=== PATIENT | female | born 1965 | race Two or more races ===

== ENCOUNTER 2020-04-03 13:24 | Emergency (ER) | payer MEDICAID, SELFPAY ==
--- NOTE | 2020-04-03 13:36 | ECG_ITS ---
Test Reason : CHEST PAIN Blood Pressure : / mmHG Vent. Rate : 058 BPM Atrial Rate : 058 BPM P-R Int : 176 ms QRS Dur : 098 ms QT Int : 420 ms P-R-T Axes : 033 006 010 degrees QTc Int : 412 ms Sinus bradycardia Otherwise normal ECG When compared with ECG of 22-OCT-2019 11:26, T wave inversion no longer evident in Lateral leads Referred By: Generic ED Physician Electronically Signed By:EVERTON COLUNGA
--- NOTE | 2020-04-03 15:06 | ED_ITS ---
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 Mode of arrival: ambulatory Limitations: no limitations History of Present Illness HPI narrative: 54 yo female with multiple complaints including 4 days of vague chest pain, mild headache, mild lower abdominal pain, aunt has COVID so she wants a test MD complaint: chest pain Onset (ago): day(s) (4) Timing of current episode: constant Prior episodes: Yes Onset: during rest Pain location: left chest Pain radiation: none Severity: mild Quality: aching Relieving factors: nothing Exacerbating factors: nothing Related Data Allergies Allergy/AdvReac Type Severity Reaction Status Date / Time No Known Allergies Allergy Unverified 03/19/20 18:36 [No Known Allergies*] Pt states no food/medication Allergy Unknown Uncoded 06/07/19 00:00 a Review of Systems Review of Systems: Constitutional : No Weight loss, No Fever, No Chills ENT/Mouth : No sore throat, No Rhinorrhea Eyes: No Eye Pain, No Swelling Cardiovascular : pos Chest Pain, pos SOB, no Dyspnea on Exertion, No Orthopnea, No Edema, No Palpitations Respiratory : No Cough, No Sputum Gastrointestinal : no Nausea, No Vomiting, No Diarrhea, mild intermittent lower abdominal Pain, No Hematochezia, No Melena Genitourinary : No Dysuria, No Urinary Frequency Musculoskeletal : No joint pain, No Myalgias, No Joint Swelling Skin : No Skin Lesions, No rash Neuro : No Weakness, No Numbness, No Dizziness, No Headache Psych : No Anxiety/Panic, No Depression Heme/Lymph: No Bruising, No Lymphadenopathy Endocrine : No Polyuria, No Polydipsia All other systems reviewed and are negative [facility] Past Medical History Medical History (Updated 04/03/20 @ 16:07 by Chelsy Souza DO) Diabetes HTN (hypertension) Hypercholesteremia Surgical History (Updated 04/03/20 @ 15:13 by Chelsy Souza DO) Bariatric surgery status Social History Social History (Updated 04/03/20 @ 15:14 by Chelsy Souza DO) Alcohol intake: never Smoking Status: Never smoker Use of substances other than those prescribed or required for medical reasons: No Advance Directives: No Advance Directives Information Provided: Yes Physical Exam Vital Signs and I&O and Narrative: Vital Signs and I&O: Vital Signs Temp 98.0 F 04/03/20 15:08 Pulse 61 04/03/20 15:08 Resp 18 04/03/20 15:08 BP 124/44 L 04/03/20 15:08 Pulse Ox 99 04/03/20 15:08 Intake & Output 04/02/20 04/03/20 04/03/20 18:59 06:59 18:59 Weight 108.862 kg Body Mass Index 43.9 Appearance: Alert. Oriented X3. No acute distress. Eyes: Pupils equal, round and reactive to light. ENT: Pharynx normal. Neck: Normal inspection. Neck supple. CVS: Normal heart rate and rhythm. Pulses normal. Respiratory: No respiratory distress. Breath sounds normal. Abdomen: Soft and nontender. Skin: Skin warm and dry. Normal skin color. Normal skin turgor. Extremities: No lower extremity edema. No lower extremity edema. Neuro: Oriented X 3. No motor deficit. No sensory deficit. Course Reevaluation(s) Reevaluation #1: signed out to Dr. Gerber pending workup MDM - Chest Pain MDM Narrative Medical decision making narrative: multiple complaints c/o chest pain x 4 days, has no tachycardia not pleuritic no hypoxia and no signs of DVT doubt PE, seems atypical for ACS, also c/o lower abdominal pain but no associated symptoms and has no pain to palpation, benign exam - here also wants a COVID swab, basic labs, CXR, EKG, COVID swab, anticipate DC home if negative Discharge Plan Discharge Clinical Impression: Atypical chest pain Patient Disposition: Home, Self-Care
[2020-04-03 15:08] VITALS: BP 124/44; PULSE 61; RESP 18; TEMP 36.7; O2SAT 99; BMI 43.9
--- NOTE | 2020-04-03 15:10 | XR_ITS ---
EXAMINATION: XR CHEST CLINICAL INFORMATION: Cough. COMPARISON: Chest radiographs dated 12/16/2019. TECHNIQUE: Frontal view of the chest was obtained. FINDINGS: The heart, great vessels, pulmonary vasculature and mediastinum are stable. There is moderate elevation of the right hemidiaphragm redemonstrated. No infiltrate, effusion or pneumothorax is seen. There is no congestive heart failure. No acute osseous abnormality seen. IMPRESSION: No active cardiopulmonary disease. There is stable moderate elevation of the right hemidiaphragm.
[2020-04-03] MEDS: Acetaminophen 325 MG TABLET 650 MG PO (15:58)
[2020-04-03 16:35] VITALS: BP 136/73; PULSE 55; RESP 18; TEMP 36.8; O2SAT 98
[2020-04-03 16:50] LABS: MANUAL DIFF FLAG NO
[2020-04-03 16:53] LABS: Basophils Percent Auto 0.3 % (0-2); Eosinophils Absolute Auto 0.1 X10*3/uL (0.0-0.4); Hematocrit 33.9 % (37-47); Hemoglobin 11.3 g/dl (12.0-16.0); Imm Gran Abs Auto 0.05 X10*3/uL (0.00-0.03); Imm Gran Pct Auto 0.7 % (0.0-0.4); Lymphocytes Absolute Auto 2.2 X10*3/uL (1.2-4.9); Lymphocytes Percent Auto 31.6 % (20-40); Mean Corpuscular HGB Conc 33.3 g/dl (31.0-35.0); Mean Corpuscular Hemoglobin 31.7 pg (27.0-33.0); Mean Platelet Volume 9.3 fL (9.4-12.3); Monocytes Absolute Auto 0.5 X10*3/uL (0.1-1.2); Monocytes Percent Auto 7.5 % (2-11); Neutrophils Absolute Auto 4.1 X10*3/uL (2.0-8.3); Neutrophils Percent Auto 58.9 % (45-73); Platelet Count 310 X10*3/uL (160-400); Red Blood Count 3.57 X10*6/uL (4.20-5.50); Red Cell Distribution Width 12.3 % (11.0-16.0); White Blood Count 6.9 X10*3/uL (4.8-10.8)
[2020-04-03 16:54] LABS: Glucose Urine UA NEG (NEG); Leukocyte Esterase Urine NEG (NEG); Nitrite Urine NEG (NEG); Urine Blood 1+ (NEG); Urine Ketones NEG (NEG); Urine Protein NEG (NEG-TRACE)
[2020-04-03 16:56] LABS: Appearance Urine CLEAR; Color Urine YELLOW
[2020-04-03 17:21] LABS: Alanine Aminotransferase 19 U/L (0-31); Albumin Level 4.2 g/dL (3.5-5.0); Alkaline Phosphatase 91 U/L (39-117); Anion Gap 12 (12-20); Aspartate Amino Transferase 19 U/L (5-31); Bilirubin Direct < 0.2 mg/dL (0.0-0.5); Bilirubin Total 0.2 mg/dL (0.0-1.0); Blood Urea Nitrogen 15 mg/dL (9-16); Calcium 8.9 mg/dL (8.4-10.2); Carbon Dioxide 28 mmol/L (22-29); Chloride 104 mmol/L (96-108); Estimated Glomerular Filt Rate > 60; Glucose Random 161 mg/dL (60-115); Lipase 33 U/L (8-78); Potassium 3.9 mmol/l (3.3-5.1); Sodium 140 mmol/L (135-145); Total Protein 7.1 g/dL (6.5-8.0)
[2020-04-03 17:22] LABS: RBC Urine 0-2 /HPF (0); Squamous Epithelial Cell Urine TRACE /LPF; WBC Urine 0 /HPF (0-4)
[2020-04-03 17:24] LABS: Troponin-I High Sensitivity < 3.5 ng/L (<3.5-17.0)
--- NOTE | 2020-04-03 18:47 | ED_ITS ---
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 Mode of arrival: ambulatory Limitations: no limitations History of Present Illness Pain location: left chest Quality: aching Relieving factors: nothing Exacerbating factors: nothing Related Data Allergies Allergy/AdvReac Type Severity Reaction Status Date / Time No Known Allergies Allergy Unverified 03/19/20 18:36 [No Known Allergies*] Pt states no food/medication Allergy Unknown Uncoded 06/07/19 00:00 a [facility] Past Medical History Medical History (Updated 04/03/20 @ 16:07 by Chelsy Souza DO) Diabetes HTN (hypertension) Hypercholesteremia Surgical History (Updated 04/03/20 @ 15:13 by Chelsy Souza DO) Bariatric surgery status Social History Social History (Updated 04/03/20 @ 15:14 by Chelsy Souza DO) Alcohol intake: never Smoking Status: Never smoker Use of substances other than those prescribed or required for medical reasons: No Advance Directives: No Advance Directives Information Provided: Yes Physical Exam Vital Signs and I&O and Narrative: Vital Signs and I&O: Vital Signs Temp 98.2 F 04/03/20 16:35 Pulse 55 04/03/20 16:35 Resp 18 04/03/20 16:35 BP 136/73 04/03/20 16:35 Pulse Ox 98 04/03/20 16:35 Intake & Output 04/02/20 04/03/20 04/03/20 18:59 06:59 18:59 Weight 108.862 kg Body Mass Index 43.9 Course Reevaluation(s) Reevaluation #1: patient seen evaluated by me. Patient walking to the bathroom without assistance. Patient tolerating p.o.. Laboratory work EKG x-ray negative I discussed the patient covered testing any stye slightly in till results return. Patient states agrees. Doubt at this point patient has acute coronary syndrome. Patient nonseptic discharge MDM - Chest Pain Lab Data Result diagrams: 04/03/20 16:31 04/03/20 16:31 Labs: Lab Results 04/03/20 04/03/20 04/03/20 Range/Units 16:31 16:31 16:31 WBC 6.9 (4.8-10.8) X10*3/uL RBC 3.57 L (4.20-5.50) X10*6/uL Hgb 11.3 L (12.0-16.0) g/dl Hct 33.9 L (37-47) % MCV 95.0 (80-98) fL MCH 31.7 (27.0-33.0) pg MCHC 33.3 (31.0-35.0) g/dl RDW 12.3 (11.0-16.0) % Plt Count 310 (160-400) X10*3/uL MPV 9.3 L (9.4-12.3) fL Immature Gran % (Auto) 0.7 H (0.0-0.4) % Neut % (Auto) 58.9 (45-73) % Lymph % (Auto) 31.6 (20-40) % [place] % (Auto) 7.5 (2-11) % Eos % (Auto) 1.0 (0-4) % Baso % (Auto) 0.3 (0-2) % Neut # (Auto) 4.1 (2.0-8.3) X10*3/uL Lymph # (Auto) 2.2 (1.2-4.9) X10*3/uL [place] # (Auto) 0.5 (0.1-1.2) X10*3/uL Eos # (Auto) 0.1 (0.0-0.4) X10*3/uL Baso # (Auto) 0.0 (0.0-0.2) X10*3/uL Abs Immat Gran (auto) 0.05 H (0.00-0.03) X10*3/uL Absolute Nucleated RBC 0.000 (0.0-0.012) X10*3/uL Nucleated RBC % (auto) 0.0 (0.0-0.2) /100WBC Sodium 140 (135-145) mmol/L Potassium 3.9 (3.3-5.1) mmol/l Chloride 104 (96-108) mmol/L Carbon Dioxide 28 (22-29) mmol/L Anion Gap 12 (12-20) BUN 15 (9-16) mg/dL Creatinine 0.83 (0.5-1.4) mg/dL Estim Creat Clear Calc 90.0 Estimated GFR > 60 Random Glucose 161 H (60-115) mg/dL Calcium 8.9 (8.4-10.2) mg/dL Total Bilirubin 0.2 (0.0-1.0) mg/dL Direct Bilirubin < 0.2 (0.0-0.5) mg/dL AST 19 (5-31) U/L ALT 19 (0-31) U/L Alkaline Phosphatase 91 (39-117) U/L Troponin I High Sens (<3.5-17.0) ng/L Total Protein 7.1 (6.5-8.0) g/dL Albumin 4.2 (3.5-5.0) g/dL Lipase 33 (8-78) U/L Urine Color YELLOW Urine Appearance CLEAR Urine pH 6.0 (5.0-8.0) Ur Specific [place] 1.020 (1.005-1.025) Urine Protein NEG (NEG-TRACE) MG/DL Urine Glucose (UA) NEG (NEG) MG/DL Urine Ketones NEG (NEG) MG/DL Urine Blood 1+ H (NEG) Urine Nitrite NEG (NEG) Ur Leukocyte Esterase NEG (NEG) Urine RBC 0-2 (0) /HPF Urine WBC 0 (0-4) /HPF Ur Squamous Epith Cells TRACE /LPF Urine Bacteria NONE /LPF 04/03/20 Range/Units 16:31 WBC (4.8-10.8) X10*3/uL RBC (4.20-5.50) X10*6/uL Hgb (12.0-16.0) g/dl Hct (37-47) % MCV (80-98) fL MCH (27.0-33.0) pg MCHC (31.0-35.0) g/dl RDW (11.0-16.0) % Plt Count (160-400) X10*3/uL MPV (9.4-12.3) fL Immature Gran % (Auto) (0.0-0.4) % Neut % (Auto) (45-73) % Lymph % (Auto) (20-40) % [place] % (Auto) (2-11) % Eos % (Auto) (0-4) % Baso % (Auto) (0-2) % Neut # (Auto) (2.0-8.3) X10*3/uL Lymph # (Auto) (1.2-4.9) X10*3/uL [place] # (Auto) (0.1-1.2) X10*3/uL Eos # (Auto) (0.0-0.4) X10*3/uL Baso # (Auto) (0.0-0.2) X10*3/uL Abs Immat Gran (auto) (0.00-0.03) X10*3/uL Absolute Nucleated RBC (0.0-0.012) X10*3/uL Nucleated RBC % (auto) (0.0-0.2) /100WBC Sodium (135-145) mmol/L Potassium (3.3-5.1) mmol/l Chloride (96-108) mmol/L Carbon Dioxide (22-29) mmol/L Anion Gap (12-20) BUN (9-16) mg/dL Creatinine (0.5-1.4) mg/dL Estim Creat Clear Calc Estimated GFR Random Glucose (60-115) mg/dL Calcium (8.4-10.2) mg/dL Total Bilirubin (0.0-1.0) mg/dL Direct Bilirubin (0.0-0.5) mg/dL AST (5-31) U/L ALT (0-31) U/L Alkaline Phosphatase (39-117) U/L Troponin I High Sens < 3.5 (<3.5-17.0) ng/L Total Protein (6.5-8.0) g/dL Albumin (3.5-5.0) g/dL Lipase (8-78) U/L Urine Color Urine Appearance Urine pH (5.0-8.0) Ur Specific [place] (1.005-1.025) Urine Protein (NEG-TRACE) MG/DL Urine Glucose (UA) (NEG) MG/DL Urine Ketones (NEG) MG/DL Urine Blood (NEG) Urine Nitrite (NEG) Ur Leukocyte Esterase (NEG) Urine RBC (0) /HPF Urine WBC (0-4) /HPF Ur Squamous Epith Cells /LPF Urine Bacteria /LPF Discharge Plan Discharge Clinical Impression: Atypical chest pain Patient Disposition: Home, Self-Care Additional Instructions: the self isolate as per CDC recommendations into your covid returns. return to the emergency department if her symptoms worsen Referrals: Cynthia Carson DO [Primary Care Provider] - 2 days
== END 2020-04-03 19:02 | disposition home or self-care (01) ==
PROVIDERS: Emergency Medicine; Emergency Provider Emergency Medicine; PCP Family Medicine
DX: R07.9 Chest pain, unspecified (principal); I10 Essential (primary) hypertension; E78.00 Pure hypercholesterolemia, unspecified; Z98.84 Bariatric surgery status
CPT/HCPCS: 36415; 71045; 80048; 80076; 81001; 83690; 84484; 85025; 87635; 93005; 93010; 99283; 99284

== ENCOUNTER 2020-07-12 09:30 | Emergency (ER) | payer MEDICAID, SELFPAY ==
[2020-07-12 09:36] VITALS: BP 183/82; PULSE 80; RESP 16; TEMP 36.7; O2SAT 100; BMI 42.5
[2020-07-12 10:00] VITALS: BP 182/87; PULSE 80; RESP 16; TEMP 36.7; O2SAT 100
--- NOTE | 2020-07-12 10:08 | ED.URI ---
HPI - URI/Sore Throat General Chief Complaint: Upper Respiratory Symptoms Stated Complaint: ear pain and sore throat Time Seen by Provider: 07/12/20 10:05 Source: patient and psychiatric technician assistant Mode of arrival: ambulatory Limitations: no limitations and language barrier History of Present Illness HPI Narrative: 54-year-old female here with left ear pain, nasal congestion, sore throat x3 days. No cough, shortness of breath, chest pain, fevers, chills, body aches. MD elicited complaint: sore throat and nasal congestion Onset (ago): day(s) Consistency: intermittent Severity: mild Description of mucous: clear Able to tolerate fluids by mouth: Yes Exacerbating factors: nothing Relieving factors: nothing Context: sick contacts Associated symptoms: nasal congestion and sore throat Treatments prior to arrival: none Related Data Home Medications Medication Instructions Recorded Confirmed aspirin [Aspirin Low Dose] 81 mg PO DAILY 04/29/20 04/29/20 atorvastatin 40 mg PO BEDTIME 04/29/20 04/29/20 baclofen 10 mg PO TID 04/29/20 04/29/20 cholecalciferol (vitamin D3) 50 mcg PO DAILY 04/29/20 04/29/20 [Vitamin D3] ergocalciferol (vitamin D2) 1,250 mcg PO QWEEK 04/29/20 04/29/20 [Vitamin D2] ferrous sulfate 325 mg PO TID 04/29/20 04/29/20 fluoxetine 20 mg PO DAILY 04/29/20 04/29/20 hydrochlorothiazide 25 mg PO DAILY 04/29/20 04/29/20 lisinopril 30 mg PO DAILY 04/29/20 04/29/20 multivitamin 1 tab PO DAILY 04/29/20 04/29/20 naproxen 500 mg PO BID PRN 04/29/20 04/29/20 omeprazole 20 mg PO DAILY 04/29/20 04/29/20 tramadol 50 mg PO Q6H PRN 04/29/20 04/29/20 Previous Rx's Medication Instructions Recorded amoxicillin 500 mg PO Q8H #21 cap 07/12/20 Allergies Allergy/AdvReac Type Severity Reaction Status Date / Time No Known Allergies Allergy Verified 04/29/20 09:12 [No Known Allergies*] Review of Systems Review of Systems: Yes all other systems are reviewed and are negative Constitutional: Constitutional: Reports no additional constitutional complaints, Denies body ache(s), Denies chills, Denies fever(s), Denies headache(s) and Denies weakness Eyes: Eyes: Reports no additional eye complaints and Denies change in vision ENT: Reports system reviewed and no additional complaints, except as documented, Denies dizziness, Reports otalgia, Denies headache(s), Reports nasal congestion, Denies nasal discharge, Denies neck pain and Reports sore throat Cardiovascular: Cardiovascular: Reports no additional cardiovascular complaints, Denies chest pain, Denies leg edema and Denies dyspnea Respiratory: Respiratory: Reports no additional respiratory complaints, Denies cough and Denies dyspnea Gastrointestinal: Gastrointestinal: Reports no additional gastrointestinal complaints, Denies abdominal pain, Denies diarrhea, Denies nausea and Denies vomiting Genitourinary: Genitourinary: Reports no additional female genitourinary complaints and Denies urinary incontinence Musculoskeletal: Musculoskeletal: Reports no additional musculoskeletal complaints, Denies back pain, Denies arthralgias, Denies joint swelling, Denies neck pain, Denies numbness and Denies tingling Integumentary/Breasts: Skin/Breast: Reports system reviewed and no additional complaints, except as docu and Denies rash Neurologic: Denies Abnormal speech present, Denies dizziness, Denies headache(s), Denies numbness, Denies tingling and Denies weakness PMFSH Past Medical History Attestation statement: The following information was validated with the patient. Source: old records reviewed and nursing notes reviewed Medical History Anemia Arthritis Depression Diabetes GERD (gastroesophageal reflux disease) Hepatitis HTN (hypertension) Hypercholesteremia Lab test negative for COVID-19 virus Surgical History Bariatric surgery status Hx of abdominal surgery Hx of section Hx of cholecystectomy Hx of dilation and curettage Hx of excision of mass Hx of gastric bypass Hx of reduction mammoplasty Hx of tubal ligation Social History Social History Alcohol intake: never Smoking Status: Never smoker Advance Directives: No Advance Directives Information Provided: No Physical Exam Vital Signs: Vital Signs: Last Vital Signs Temp 98.0 F 07/12/20 10:00 Pulse 80 07/12/20 10:00 Resp 16 07/12/20 10:00 BP 182/87 H 07/12/20 10:00 Pulse Ox 100 07/12/20 10:00 Body Mass Index 42.5 Const: General: cooperative, healthy appearing, comfortable and no acute distress Orientation/consciousness: patient oriented x3 Limitations: no limitations HENMT: Head: Yes normal to inspection Ears: hearing grossly normal bilaterally, mastoids normal, no periauricular adenopathy and TM abnormal (Left TM erythematous, bulging) General nose exam: Normal external nose present Face and sinus: Yes normal facial exam Mouth: Normal oral and palatal mucosa present Throat: Yes posterior oropharynx normal Eyes: General: appearance normal, both eyes and all related structures Pupils: Equal, round and reactive pupils present Neck: Neck: Yes normal visual inspection Chest: Chest palpation & inspection: normal inspection of the chest Resp: Effort & Inspection: normal respiratory effort Auscultation: clear to auscultation bilaterally Cardio: Rate: regular rate Rhythm: regular rhythm Peripheral pulses: Peripheral pulses 2+ throughout GI: Inspection: Yes normal to inspection Palpation (GI): Soft to palpation and nontender Auscultation: normal bowel sounds Back/Spine/Pelvis: Thoracic/Lumbar Spine: thoracic and lumbar spine normal to inspection Skin: General skin exam: no rashes or lesions noted Neuro: General: patient oriented x3, no focal motor deficits and normal sensation to monofilament Cranial nerves: Yes Equal, round and reactive pupils present Cognition (Neuro): normal cognition Speech: No Abnormal speech present Gait exam (Neuro): Normal gait present Motor exam (neuro): 5/5 motor strength present throughout Extrem: General: Yes normal to inspection Course Course Course Narrative: Left AOM on exam. Requesting COVID testing. This was sent. Called and informed RSV Positive. Covid negative. All questions answered with the psychiatric technician assistant. Reviewed worrisome signs and symptoms and when to return to the emergency department. Comfortable discharge home. MDM - URI/Sore Throat Medical Records Attestation: I reviewed the patient's medical records. Lab Data Attestation: I reviewed the patient's lab results. Labs: Lab Results 07/12/20 Range/Units 10:37 Coronavirus (PCR) NEGATIVE (Negative) Influenza Type A (PCR) NEGATIVE (Negative) Influenza Type B (PCR) NEGATIVE (Negative) RSV RNA Qual (PCR) POSITIVE A (Negative) Discharge Plan Discharge Clinical Impression: Acute viral syndrome Otitis media Qualifiers: Otitis media type: unspecified Chronicity: acute Qualified Code(s): H66.90 - Otitis media, unspecified, unspecified ear Patient Disposition: Home, Self-Care Instructions: Ear Infection (ED), Viral Syndrome (ED) Additional Instructions: I will call you later today with your COVID results Prescriptions: New amoxicillin 500 mg capsule 500 mg PO Q8H Qty: 21 RF: 0 No Action multivitamin Tablet 1 tab PO DAILY RF: 0 atorvastatin 40 mg Tablet 40 mg PO BEDTIME RF: 0 aspirin [Aspirin Low Dose] 81 mg Tablet,Delayed Release (Dr/Ec) 81 mg PO DAILY RF: 0 tramadol 50 mg Tablet 50 mg PO Q6H PRN (Reason: Pain) RF: 0 baclofen 10 mg Tablet 10 mg PO TID RF: 0 ferrous sulfate 325 mg (65 mg iron) Tablet 325 mg PO TID RF: 0 fluoxetine 20 mg Tablet 20 mg PO DAILY RF: 0 lisinopril 30 mg Tablet 30 mg PO DAILY RF: 0 hydrochlorothiazide 25 mg Tablet 25 mg PO DAILY RF: 0 ergocalciferol (vitamin D2) [Vitamin D2] 1,250 mcg (50,000 unit) Capsule 1,250 mcg PO QWEEK RF: 0 naproxen 500 mg Tablet 500 mg PO BID PRN (Reason: Pain) RF: 0 omeprazole 20 mg Tablet,Delayed Release (Dr/Ec) 20 mg PO DAILY RF: 0 cholecalciferol (vitamin D3) [Vitamin D3] 50 mcg (2,000 unit) Tablet 50 mcg PO DAILY RF: 0 Referrals: Physician,Unknown [Primary Care Provider] - 2 days Interventions: ED Discharge Assessment Last Done: 07/12/20 10:42 Discharge Date/Time: 07/12/20 10:43 Print Language: Burkinan
--- NOTE | 2020-07-12 10:19 | PC.NURSE ---
pt waiting to be seen by provider, reports uri symptoms lungs cta sats 100% roomair
[2020-07-12 12:12] LABS: Influenza A PCR NEGATIVE (Negative); Influenza B PCR NEGATIVE (Negative); Resp Syncy Virus RNA Qual PCR POSITIVE (Negative); SARS COV2 PCR INHOUSE NEGATIVE (Negative)
== END 2020-07-12 10:43 | disposition home or self-care (01) ==
PROVIDERS: Nurse Practitioner Family; Emergency Provider Emergency Medicine
DX: B34.9 Viral infection, unspecified (principal); H66.92 Otitis media, unspecified, left ear; H92.02 Otalgia, left ear; J02.9 Acute pharyngitis, unspecified; Z79.899 Other long term (current) drug therapy; Z20.828 Contact with and (suspected) exposure to other viral communicable diseases
CPT/HCPCS: 0241U; 36415; 99283; 99284

== ENCOUNTER 2020-08-10 08:28 | Emergency (ER) | payer MEDICAID, SELFPAY ==
[2020-08-10 08:50] VITALS: BP 199/102; PULSE 79; RESP 20; TEMP 36.9; O2SAT 98; BMI 42.0
--- NOTE | 2020-08-10 09:07 | ED_ITS ---
HPI - Female Genitourinary General Chief complaint: Urogenital-Female Stated complaint: back pain Time Seen by Provider: 08/10/20 08:53 Source: patient and deaf interpreter Mode of arrival: ambulatory Limitations: no limitations History of Present Illness HPI Narrative: 54 yo female with back pain, HPL, UTI, anemia, HTN here with back pain for a few days hx of same in the past, no b/b incontinence, no saddle anesthesia, no IVDA, no AC therapy - unchanged from prior - also c/o dysuria has frequent UTIs no fevers, n/v MD elicited complaint: dysuria, UTI and back pain Pertinent past history: recurrent UTIs Onset (ago): day(s) (3) Location of symptoms: suprapubic Severity: mild Female Urogenital Radiation: Non-Radiating Quality of pain: dull Consistency: intermittent Vaginal discharge: none Vaginal bleeding: none Urinary symptoms: Dysuria, Urgency and Frequency Exacerbating factors: urination Relieving factors: none Associated symptoms: denies other symptoms Treatment prior to arrival: none Related Data Home Medications Medication Instructions Recorded Confirmed aspirin [Aspirin Low Dose] 81 mg PO DAILY 04/29/20 04/29/20 atorvastatin 40 mg PO BEDTIME 04/29/20 04/29/20 baclofen 10 mg PO TID 04/29/20 04/29/20 cholecalciferol (vitamin D3) 50 mcg PO DAILY 04/29/20 04/29/20 [Vitamin D3] ergocalciferol (vitamin D2) 1,250 mcg PO QWEEK 04/29/20 04/29/20 [Vitamin D2] ferrous sulfate 325 mg PO TID 04/29/20 04/29/20 fluoxetine 20 mg PO DAILY 04/29/20 04/29/20 hydrochlorothiazide 25 mg PO DAILY 04/29/20 04/29/20 lisinopril 30 mg PO DAILY 04/29/20 04/29/20 multivitamin 1 tab PO DAILY 04/29/20 04/29/20 naproxen 500 mg PO BID PRN 04/29/20 04/29/20 omeprazole 20 mg PO DAILY 04/29/20 04/29/20 tramadol 50 mg PO Q6H PRN 04/29/20 04/29/20 Previous Rx's Medication Instructions Recorded amoxicillin 500 mg PO Q8H #21 cap 07/12/20 cyclobenzaprine 10 mg PO TID PRN #14 tab 08/10/20 lidocaine 1 patch TOPICAL DAILY PRN #10 ea 08/10/20 nitrofurantoin monohyd/m-cryst 100 mg PO BID 7 Days #14 cap 08/10/20 [Macrobid] Allergies Allergy/AdvReac Type Severity Reaction Status Date / Time No Known Allergies Allergy Verified 04/29/20 09:12 [No Known Allergies*] Review of Systems Review of Systems: Constitutional : No Weight loss, No Fever, No Chills, ENT/Mouth : No Hearing loss, No Ear Pain, No Nasal Congestion, No Sinus Pain, No Hoarseness, No sore throat, No Rhinorrhea, No Swallowing Difficulty Cardiovascular : No Chest Pain, No SOB Respiratory : No Cough, No Dyspnea Gastrointestinal : No Nausea, No Vomiting, No Diarrhea, No abdominal Pain, No Hematochezia, No Melena Genitourinary : pos Dysuria, pos Urinary Frequency, No Hematuria, No Urinary Incontinence, Musculoskeletal : positive back pain Skin : No Skin Lesions, No rash Neuro : No Weakness, No Numbness, No Paresthesias, no loss of bowel or bladder incontinence, no saddle anesthesia PMFSH Past Medical History Attestation statement: The following information was validated with the patient. Medical History Anemia Arthritis Depression Diabetes GERD (gastroesophageal reflux disease) Hepatitis HTN (hypertension) Hypercholesteremia Lab test negative for COVID-19 virus Surgical History Bariatric surgery status Hx of abdominal surgery Hx of section Hx of cholecystectomy Hx of dilation and curettage Hx of excision of mass Hx of gastric bypass Hx of reduction mammoplasty Hx of tubal ligation Social History Social History Alcohol intake: never Smoking Status: Never smoker Advance Directives: No Advance Directives Information Provided: No Physical Exam Vital Signs: Vital Signs: Last Vital Signs Temp 98.4 F 08/10/20 08:50 Pulse 79 08/10/20 08:50 Resp 20 08/10/20 08:50 BP 199/102 H 08/10/20 08:50 Pulse Ox 98 08/10/20 08:50 Body Mass Index 42.0 Appearance: Alert. Oriented X3. No acute distress. Eyes: Pupils equal, round and reactive to light. ENT: Pharynx normal. Neck: Normal inspection. Neck supple. CVS: Normal heart rate and rhythm. Pulses normal. Respiratory: No respiratory distress. Breath sounds normal. Abdomen: Soft and nontender. Back: no CVA ttp c/o pain along lumbar paraspinals Skin: Skin warm and dry. Normal skin color. Normal skin turgor. Extremities: No lower extremity edema. No calf ttp Neuro: Oriented X 3. No motor deficit. No sensory deficit. MDM - Female Genitourinary MDM Narrative Medical decision making narrative: 54 yo female with UTI, chronic back pain here with c/o back pain which is chronic no CVA ttp (no b/b incontinence, no saddle anesthesia), no vomiting, no fevers, has dysuria - review of cultures S to macrobid - wants COVID test. Lab Data Labs: Lab Results 08/10/20 08/10/20 Range/Units 09:01 09:12 Urine Color YELLOW Urine Appearance HAZY Urine pH 6.0 (5.0-8.0) Ur Specific [place] >= 1.030 H (1.005-1.025) Urine Protein NEG (NEG-TRACE) MG/DL Urine Glucose (UA) NEG (NEG) MG/DL Urine Ketones NEG (NEG) MG/DL Urine Blood 1+ H (NEG) Urine Nitrite POS H (NEG) Ur Leukocyte Esterase NEG (NEG) Urine RBC 1-4 (0) /HPF Urine WBC 5-9 H (0-4) /HPF Ur Squamous Epith Cells 1+ /LPF Urine Bacteria 3+ /LPF COVID-19 (FRANC) Negative (Negative) COVID-19 Clin Com See Note Discharge Plan Discharge Patient Disposition: Home, Self-Care Additional Instructions: return to ED for any worsening symptoms or concerns NEGATIVE FOR COVID Prescriptions: New cyclobenzaprine 10 mg tablet 10 mg PO TID PRN (Reason: muscle spasm) Qty: 14 RF: 0 lidocaine 4 % adhesive patch,medicated 1 patch topical DAILY PRN (Reason: pain) Qty: 10 RF: 0 nitrofurantoin monohyd/m-cryst [Macrobid] 100 mg capsule 100 mg PO BID 7 Days Qty: 14 RF: 0 No Action multivitamin Tablet 1 tab PO DAILY RF: 0 atorvastatin 40 mg Tablet 40 mg PO BEDTIME RF: 0 aspirin [Aspirin Low Dose] 81 mg Tablet,Delayed Release (Dr/Ec) 81 mg PO DAILY RF: 0 tramadol 50 mg Tablet 50 mg PO Q6H PRN (Reason: Pain) RF: 0 baclofen 10 mg Tablet 10 mg PO TID RF: 0 ferrous sulfate 325 mg (65 mg iron) Tablet 325 mg PO TID RF: 0 fluoxetine 20 mg Tablet 20 mg PO DAILY RF: 0 lisinopril 30 mg Tablet 30 mg PO DAILY RF: 0 hydrochlorothiazide 25 mg Tablet 25 mg PO DAILY RF: 0 ergocalciferol (vitamin D2) [Vitamin D2] 1,250 mcg (50,000 unit) Capsule 1,250 mcg PO QWEEK RF: 0 naproxen 500 mg Tablet 500 mg PO BID PRN (Reason: Pain) RF: 0 omeprazole 20 mg Tablet,Delayed Release (Dr/Ec) 20 mg PO DAILY RF: 0 cholecalciferol (vitamin D3) [Vitamin D3] 50 mcg (2,000 unit) Tablet 50 mcg PO DAILY RF: 0 amoxicillin 500 mg capsule 500 mg PO Q8H Qty: 21 RF: 0 Referrals: Cynthia Carson DO [Primary Care Provider] - 2 days (if not better) Print Language: Luxembourger
[2020-08-10 09:22] LABS: Glucose Urine UA NEG (NEG); Leukocyte Esterase Urine NEG (NEG); Nitrite Urine POS (NEG); Specific Gravity - Urine >= 1.030 (1.005-1.025); UACC Culture Trigger YES; Urine Blood 1+ (NEG); Urine Ketones NEG (NEG); Urine Protein NEG (NEG-TRACE)
[2020-08-10] MEDS: Cyclobenzaprine HCl 10 MG TABLET PO (09:36)
[2020-08-10 09:40] LABS: Appearance Urine HAZY; Color Urine YELLOW
[2020-08-10 09:42] LABS: COVID-19 Test Negative (Negative); IDNOW Serial# 9DD0AD1C
[2020-08-10 09:49] LABS: Bacteria Urine 3+ /LPF; Squamous Epithelial Cell Urine 1+ /LPF; UACC CULT YES
[2020-08-10] MEDS: Nitrofurantoin Monohyd/M-Cryst 100 MG CAPSULE PO (10:05)
== END 2020-08-10 10:10 | disposition home or self-care (01) ==
PROVIDERS: Emergency Provider Emergency Medicine; PCP Family Medicine
DX: N39.0 Urinary tract infection, site not specified (principal); Z20.822 Contact with and (suspected) exposure to COVID-19; E11.9 Type 2 diabetes mellitus without complications; I10 Essential (primary) hypertension; Z87.440 Personal history of urinary (tract) infections
CPT/HCPCS: 36415; 81001; 87086; 87635; 99283

== ENCOUNTER 2020-08-13 14:03 | Emergency (ER) | payer MEDICAID, SELFPAY ==
--- NOTE | 2020-08-13 | ECG_ITS ---
Test Reason : EPIGASTRIC PAIN Blood Pressure : / mmHG Vent. Rate : 071 BPM Atrial Rate : 071 BPM P-R Int : 158 ms QRS Dur : 092 ms QT Int : 368 ms P-R-T Axes : 055 003 027 degrees QTc Int : 399 ms Normal sinus rhythm Minimal voltage criteria for LVH, may be normal variant Borderline ECG When compared with ECG of 03-APR-2020 14:39, No significant change was found Referred By: Generic ED Physician Electronically Signed By:ADIS ERICKSON MD
--- NOTE | ~2020-08-13 | CT_ITS ---
EXAMINATION: CT ABDOMEN AND PELVIS WITH CONTRAST CLINICAL INFORMATION: Epigastric and right upper quadrant pain with history of gastric bypass. COMPARISON: CT abdomen and pelvis 04/02/[address] scans dating back to 10/09/2014. No retroperitoneal lymphadenopathy is seen. TECHNIQUE: Multidetector volumetric images were obtained from the superior aspect of the liver through the pubic symphysis following administration 85 mL of Omnipaque 350 intravenous contrast. Sagittal and coronal reformatted images were obtained on the technologist's workstation. Oral contrast: No This CT examination was performed using dose optimization techniques as appropriate, variously including the following: *Automated exposure control *Adjustment of mA and/or kV according to patient size (this includes techniques or standardized protocols for targeted exams where dose is matched to indication/reason for exam; i.e. extremities or head) *Use of iterative reconstruction technique DLP: 1005 mGy-cm FINDINGS: LUNG BASES: The visualized lung bases are unremarkable. LIVER, GALLBLADDER, AND BILIARY TREE: The liver is normal in size, shape, and attenuation. Again seen are some tiny hypodensities in the liver, presumably cysts. No suspicious focal hepatic lesion or biliary ductal dilatation is present. There is some minimal central biliary prominence status post cholecystectomy. PANCREAS: Unremarkable. SPLEEN: Unremarkable. ADRENAL GLANDS: Unremarkable. KIDNEYS AND URETERS: The kidneys are normal in size, shape, and attenuation with the exception of a cortical scar in the right lower pole. There is some associated calcification with the scar. No hydronephrosis, hydroureter, or calculi seen. No perinephric stranding. BLADDER: Unremarkable. GASTROINTESTINAL TRACT: There has been prior bariatric gastric surgery. The small and large bowel are unremarkable. The appendix is unremarkable. ABDOMINAL WALL: No significant hernia is appreciated. LYMPH NODES/RETROPERITONEUM: Again seen is a left para-aortic mass currently measuring 4.1 x 3.6 x 4.4 cm. The mass is slightly larger than previously noted when it measured 4.0 x 3.7 x 3.7 cm. On the current study the mass still contains fat density but less so than on the prior study. This mass has been present on studies dating back to at least 2014. In 2015 the mass measured 4.8 x 3.8 x 5.4 cm. The mass has also varied in attenuation whereas initially it was fairly homogeneous with predominantly water density with fat density developing on future exams. VASCULAR: Unremarkable. PELVIC VISCERA: An enlarged bulky lobular uterus is present consistent with multiple fibroids, some of which demonstrate calcifications. Appearances are unchanged. An abnormal adnexal mass or free intraperitoneal fluid is not seen. OSSEOUS STRUCTURES: Degenerative changes again seen in the spine most marked at L5-S1. CT/CT abdomen pelvis w con IMPRESSION: A definitive etiology for the patient's acute right upper quadrant/epigastric pain has not been found. Again seen is the round retroperitoneal mass slightly larger than previously noted on the most immediate prior study, with more high density content and less fat content, possibly secondary to bleeding. This mass has been present since at least 2014 slightly larger in size. Other incidental findings as described above.
--- NOTE | ~2020-08-13 | XR_ITS ---
EXAMINATION: XR CHEST CLINICAL INFORMATION: Chest pain. COMPARISON: None TECHNIQUE: Frontal view of the chest was obtained. FINDINGS: The lungs are hypoexpanded but clear. The heart size and pulmonary vascularity is normal. There is moderate spondylosis dorsal spine. No lytic process seen. XR/XR chest 1V IMPRESSION: Hypoexpanded lungs. No acute process seen.
[2020-08-13 14:25] VITALS: BP 197/90; PULSE 80; RESP 16; TEMP 36.7; O2SAT 98; BMI 43.0
[2020-08-13 15:49] LABS: MANUAL DIFF FLAG NO
[2020-08-13 15:51] LABS: Basophils Percent Auto 0.3 % (0-2); Eosinophils Absolute Auto 0.1 X10*3/uL (0.0-0.4); Eosinophils Percent Auto 0.9 % (0-4); Hematocrit 37.8 % (37-47); Hemoglobin 12.5 g/dl (12.0-16.0); Imm Gran Abs Auto 0.02 X10*3/uL (0.00-0.03); Imm Gran Pct Auto 0.3 % (0.0-0.4); Lymphocytes Absolute Auto 2.5 X10*3/uL (1.2-4.9); Lymphocytes Percent Auto 33.4 % (20-40); Mean Corpuscular HGB Conc 33.1 g/dl (31.0-35.0); Mean Corpuscular Hemoglobin 31.2 pg (27.0-33.0); Mean Corpuscular Volume 94.3 fL (80-98); Monocytes Absolute Auto 0.5 X10*3/uL (0.1-1.2); Monocytes Percent Auto 7.1 % (2-11); Neutrophils Absolute Auto 4.4 X10*3/uL (2.0-8.3); Platelet Count 328 X10*3/uL (160-400); Red Blood Count 4.01 X10*6/uL (4.20-5.50); Red Cell Distribution Width 12.4 % (11.0-16.0); White Blood Count 7.5 X10*3/uL (4.8-10.8)
--- NOTE | 2020-08-13 16:15 | ED.CHESTPAIN ---
HPI - Chest Pain General Chief Complaint: Chest Pain Stated Complaint: chest pain Time Seen by Provider: 08/13/20 16:02 Source: patient Mode of arrival: ambulatory Limitations: no limitations History of Present Illness HPI narrative: Patient comes to emergency room complaining of epigastric and right upper quadrant pain. Patient states it started approximately 1 week ago, pain is intermittent, but in the last few days it has been constant. Today, patient ate soup, made the pain much worse and decided to come to the emergency room. However, patient states that the pain is much worse any time that she moves her upper body or lifts her arms up. Patient denies vomiting or diarrhea. Patient denies chest pain, no shortness of breath. Patient states she had a gastric bypass surgery 4 years ago in [facility] MD complaint: other (Epigastric/right upper quadrant pain) Related Data Home Medications Medication Instructions Recorded Confirmed aspirin [Aspirin Low Dose] 81 mg PO DAILY 04/29/20 04/29/20 atorvastatin 40 mg PO BEDTIME 04/29/20 04/29/20 baclofen 10 mg PO TID 04/29/20 04/29/20 cholecalciferol (vitamin D3) 50 mcg PO DAILY 04/29/20 04/29/20 [Vitamin D3] ergocalciferol (vitamin D2) 1,250 mcg PO QWEEK 04/29/20 04/29/20 [Vitamin D2] ferrous sulfate 325 mg PO TID 04/29/20 04/29/20 fluoxetine 20 mg PO DAILY 04/29/20 04/29/20 hydrochlorothiazide 25 mg PO DAILY 04/29/20 04/29/20 lisinopril 30 mg PO DAILY 04/29/20 04/29/20 multivitamin 1 tab PO DAILY 04/29/20 04/29/20 naproxen 500 mg PO BID PRN 04/29/20 04/29/20 omeprazole 20 mg PO DAILY 04/29/20 04/29/20 tramadol 50 mg PO Q6H PRN 04/29/20 04/29/20 Previous Rx's Medication Instructions Recorded amoxicillin 500 mg PO Q8H #21 cap 07/12/20 cyclobenzaprine 10 mg PO TID PRN #14 tab 08/10/20 lidocaine 1 patch TOPICAL DAILY PRN #10 ea 08/10/20 nitrofurantoin monohyd/m-cryst 100 mg PO BID 7 Days #14 cap 08/10/20 [Macrobid] Allergies Allergy/AdvReac Type Severity Reaction Status Date / Time No Known Allergies Allergy Verified 04/29/20 09:12 [No Known Allergies*] Review of Systems Review of Systems: Constitutional : No Weight loss, No Fever, No Chills, No Night Sweats, No Fatigue, No Malaise ENT/Mouth : No Hearing loss, No Ear Pain, No Nasal Congestion, No Sinus Pain, No Hoarseness, No sore throat, No Rhinorrhea, No Swallowing Difficulty Eyes: No Eye Pain, No Swelling, No Redness, No Foreign Body, No Discharge, No Vision Changes Cardiovascular : No Chest Pain, No SOB, No Dyspnea on Exertion, No Orthopnea, No Edema, No Palpitations Respiratory : No Cough, No Sputum, No Wheezing, No Smoke Exposure, No Dyspnea Gastrointestinal : No Nausea, No Vomiting, No Diarrhea, No Constipation, complaining of right upper quadrant pain and epigastric pain radiating towards the back, No Hematochezia, No Melena Genitourinary : no irregular bleeding, No Dysuria, No Urinary Frequency, No Hematuria, No Urinary Incontinence, No Urgency, No Flank Pain, No Urinary Flow Changes, No Hesitancy Musculoskeletal : No joint pain, No Myalgias, No Joint Swelling Skin : No Skin Lesions, No rash Neuro : No Weakness, No Numbness, No Paresthesias, No Loss of Consciousness, No Dizziness, No Headache Psych : No Anxiety/Panic, No Depression, No SI/HI/AH/VH, No Social Issues, Heme/Lymph: No Bruising, No Bleeding,No Lymphadenopathy Endocrine : No Polyuria, No Polydipsia, No Temperature Intolerance [facility] Past Medical History Medical History Anemia Arthritis Depression Diabetes GERD (gastroesophageal reflux disease) Hepatitis HTN (hypertension) Hypercholesteremia Lab test negative for COVID-19 virus Surgical History Bariatric surgery status Hx of abdominal surgery Hx of section Hx of cholecystectomy Hx of dilation and curettage Hx of excision of mass Hx of gastric bypass Hx of reduction mammoplasty Hx of tubal ligation Social History Social History Alcohol intake: never Smoking Status: Never smoker Use of substances other than those prescribed or required for medical reasons: No Advance Directives: No Advance Directives Information Provided: Yes Physical Exam Vital Signs: Vital Signs: Last Vital Signs Temp 98.3 F 08/13/20 16:26 Pulse 67 08/13/20 18:37 Resp 18 08/13/20 18:37 BP 169/74 H 08/13/20 18:37 Pulse Ox 98 08/13/20 18:37 Body Mass Index 43.0 Appearance: Alert. Oriented X3. No acute distress. Eyes: Pupils equal, round and reactive to light. ENT: Pharynx normal. Neck: Normal inspection. Neck supple. No lymph nodes noted. No crepitus CVS: Normal heart rate and rhythm. Pulses normal. Normal S1 and S2 Respiratory: No respiratory distress. Breath sounds normal. No Wheezing. No rales Abdomen: Soft , tender to palpation in the epigastric and right upper quadrant, No rigidity. No distention. good BS x4 Skin: Skin warm and dry. Normal skin color. Normal skin turgor. Extremities: No lower extremity edema. No lower extremity edema. No Lacerations. No Rash Neuro: Oriented X 3. No motor deficit. No sensory deficit. Moving all extermities. No slurred speech. Course Course Course Narrative: I discussed the labs and imaging with the patient, no acute pathology, the mass noted on CT scan that grew, is likely a fatty deposit. Patient states that she feels better, I discussed with her that given that the pain is worse with movement, it is likely musculoskeletal in nature. MDM - Chest Pain Lab Data Result diagrams: 08/13/20 15:41 08/13/20 15:41 Labs: Lab Results 08/13/20 08/13/20 08/13/20 Range/Units 15:41 15:41 15:41 WBC 7.5 (4.8-10.8) X10*3/uL RBC 4.01 L (4.20-5.50) X10*6/uL Hgb 12.5 (12.0-16.0) g/dl Hct 37.8 (37-47) % MCV 94.3 (80-98) fL MCH 31.2 (27.0-33.0) pg MCHC 33.1 (31.0-35.0) g/dl RDW 12.4 (11.0-16.0) % Plt Count 328 (160-400) X10*3/uL MPV 9.0 L (9.4-12.3) fL Immature Gran % (Auto) 0.3 (0.0-0.4) % Neut % (Auto) 58.0 (45-73) % Lymph % (Auto) 33.4 (20-40) % [place] % (Auto) 7.1 (2-11) % Eos % (Auto) 0.9 (0-4) % Baso % (Auto) 0.3 (0-2) % Lymph # (Auto) 2.5 (1.2-4.9) X10*3/uL [place] # (Auto) 0.5 (0.1-1.2) X10*3/uL Eos # (Auto) 0.1 (0.0-0.4) X10*3/uL Baso # (Auto) 0.0 (0.0-0.2) X10*3/uL Abs Immat Gran (auto) 0.02 (0.00-0.03) X10*3/uL Absolute Neuts (auto) 4.4 (2.0-8.3) X10*3/uL Absolute Nucleated RBC 0.000 (0.0-0.012) X10*3/uL Nucleated RBC % (auto) 0.0 (0.0-0.2) /100WBC Hold Blue Top SEE NOTE Sodium 141 (135-145) mmol/L Potassium 4.3 (3.3-5.1) mmol/L Chloride 105 (96-108) mmol/L Carbon Dioxide 27 (22-29) mmol/L Anion Gap 13 (12-20) BUN 16 (9-16) mg/dL Creatinine 0.80 (0.5-1.4) mg/dL Estim Creat Clear Calc 92.2 Estimated GFR > 60 Random Glucose 119 H (60-115) mg/dL Calcium 9.1 (8.4-10.2) mg/dL Total Bilirubin 0.4 (0.0-1.0) mg/dL Direct Bilirubin 0.2 (0.0-0.5) mg/dL AST 20 (5-31) U/L ALT 16 (0-31) U/L Alkaline Phosphatase 98 (39-117) U/L Troponin I High Sens (<3.5-17.0) ng/L Total Protein 7.6 (6.5-8.0) g/dL Albumin 4.3 (3.5-5.0) g/dL Lipase 33 (8-78) U/L 08/13/20 Range/Units 15:41 WBC (4.8-10.8) X10*3/uL RBC (4.20-5.50) X10*6/uL Hgb (12.0-16.0) g/dl Hct (37-47) % MCV (80-98) fL MCH (27.0-33.0) pg MCHC (31.0-35.0) g/dl RDW (11.0-16.0) % Plt Count (160-400) X10*3/uL MPV (9.4-12.3) fL Immature Gran % (Auto) (0.0-0.4) % Neut % (Auto) (45-73) % Lymph % (Auto) (20-40) % [place] % (Auto) (2-11) % Eos % (Auto) (0-4) % Baso % (Auto) (0-2) % Lymph # (Auto) (1.2-4.9) X10*3/uL [place] # (Auto) (0.1-1.2) X10*3/uL Eos # (Auto) (0.0-0.4) X10*3/uL Baso # (Auto) (0.0-0.2) X10*3/uL Abs Immat Gran (auto) (0.00-0.03) X10*3/uL Absolute Neuts (auto) (2.0-8.3) X10*3/uL Absolute Nucleated RBC (0.0-0.012) X10*3/uL Nucleated RBC % (auto) (0.0-0.2) /100WBC Hold Blue Top Sodium (135-145) mmol/L Potassium (3.3-5.1) mmol/L Chloride (96-108) mmol/L Carbon Dioxide (22-29) mmol/L Anion Gap (12-20) BUN (9-16) mg/dL Creatinine (0.5-1.4) mg/dL Estim Creat Clear Calc Estimated GFR Random Glucose (60-115) mg/dL Calcium (8.4-10.2) mg/dL Total Bilirubin (0.0-1.0) mg/dL Direct Bilirubin (0.0-0.5) mg/dL AST (5-31) U/L ALT (0-31) U/L Alkaline Phosphatase (39-117) U/L Troponin I High Sens < 3.5 (<3.5-17.0) ng/L Total Protein (6.5-8.0) g/dL Albumin (3.5-5.0) g/dL Lipase (8-78) U/L Imaging Data Chest x-ray: Radiologist's impression: FINDINGS: The lungs are hypoexpanded but clear. The heart size and pulmonary vascularity is normal. There is moderate spondylosis dorsal spine. No lytic process seen. XR/XR chest 1V IMPRESSION: Hypoexpanded lungs. No acute process seen. ECG Data ECG #1: Attestation: I personally reviewed and interpreted this ECG as follows: (Heart rate 71, sinus rhythm, no ST segment depressions or elevations, no T-wave inversions) Discharge Plan Discharge Clinical Impression: Abdominal pain Qualifiers: Abdominal location: epigastric Qualified Code(s): R10.13 - Epigastric pain Patient Disposition: Home, Self-Care Instructions: Abdominal Pain (ED) Additional Instructions: Please follow-up with your primary care physician tomorrow. If you have any worsening or new symptoms, please return to the emergency room or call 911 Prescriptions: No Action multivitamin Tablet 1 tab PO DAILY RF: 0 atorvastatin 40 mg Tablet 40 mg PO BEDTIME RF: 0 aspirin [Aspirin Low Dose] 81 mg Tablet,Delayed Release (Dr/Ec) 81 mg PO DAILY RF: 0 tramadol 50 mg Tablet 50 mg PO Q6H PRN (Reason: Pain) RF: 0 baclofen 10 mg Tablet 10 mg PO TID RF: 0 ferrous sulfate 325 mg (65 mg iron) Tablet 325 mg PO TID RF: 0 fluoxetine 20 mg Tablet 20 mg PO DAILY RF: 0 lisinopril 30 mg Tablet 30 mg PO DAILY RF: 0 hydrochlorothiazide 25 mg Tablet 25 mg PO DAILY RF: 0 ergocalciferol (vitamin D2) [Vitamin D2] 1,250 mcg (50,000 unit) Capsule 1,250 mcg PO QWEEK RF: 0 naproxen 500 mg Tablet 500 mg PO BID PRN (Reason: Pain) RF: 0 omeprazole 20 mg Tablet,Delayed Release (Dr/Ec) 20 mg PO DAILY RF: 0 cholecalciferol (vitamin D3) [Vitamin D3] 50 mcg (2,000 unit) Tablet 50 mcg PO DAILY RF: 0 amoxicillin 500 mg capsule 500 mg PO Q8H Qty: 21 RF: 0 cyclobenzaprine 10 mg tablet 10 mg PO TID PRN (Reason: muscle spasm) Qty: 14 RF: 0 lidocaine 4 % adhesive patch,medicated 1 patch topical DAILY PRN (Reason: pain) Qty: 10 RF: 0 nitrofurantoin monohyd/m-cryst [Macrobid] 100 mg capsule 100 mg PO BID 7 Days Qty: 14 RF: 0
[2020-08-13 16:17] LABS: Anion Gap 13 (12-20); Blood Urea Nitrogen 16 mg/dL (9-16); Calcium 9.1 mg/dL (8.4-10.2); Carbon Dioxide 27 mmol/L (22-29); Chloride 105 mmol/L (96-108); Creatinine Clr Calc Pharmacy 92.2; Estimated Glomerular Filt Rate > 60; Glucose Random 119 mg/dL (60-115); Potassium 4.3 mmol/L (3.3-5.1); Sodium 141 mmol/L (135-145)
[2020-08-13 16:22] LABS: Troponin-I High Sensitivity < 3.5 ng/L (<3.5-17.0)
[2020-08-13 16:26] VITALS: BP 171/56; PULSE 63; RESP 16; TEMP 36.8; O2SAT 100
--- NOTE | 2020-08-13 16:31 | PC.NURSE ---
PT UPRIGHT IN BED, C/O UPPER ABD PAIN X1 WEEK, STS NOTABLY WORSE TODAY, PAIN WORSE AFTER EATING, DENIES ANY ASSOCIATED SX. IV ESTABLIHSED, PT IN NAD, AWAITING CT SCAN, AWARE/AGREEABLE TO PLAN OF CARE.
[2020-08-13 16:39] LABS: Alanine Aminotransferase 16 U/L (0-31); Albumin Level 4.3 g/dL (3.5-5.0); Alkaline Phosphatase 98 U/L (39-117); Aspartate Amino Transferase 20 U/L (5-31); Bilirubin Direct 0.2 mg/dL (0.0-0.5); Bilirubin Total 0.4 mg/dL (0.0-1.0); Lipase 33 U/L (8-78); Total Protein 7.6 g/dL (6.5-8.0)
[2020-08-13] MEDS: iohexoL 350 MG/ML 100 ML INFUS..BTL IV (16:50)
--- NOTE | 2020-08-13 17:17 | PC.NURSE ---
PT SITTING IN BED WITH NAD, PENDING CT SCAN RESULTS.
[2020-08-13 18:37] VITALS: BP 169/74; PULSE 67; RESP 18; O2SAT 98
== END 2020-08-13 19:20 | disposition home or self-care (01) ==
PROVIDERS: Emergency Provider Emergency Medicine; PCP Family Medicine
DX: R07.89 Other chest pain (principal); R10.11 Right upper quadrant pain; M79.602 Pain in left arm; M79.601 Pain in right arm; Z79.899 Other long term (current) drug therapy
CPT/HCPCS: 36415; 71045; 74177; 80048; 80076; 83690; 84484; 85025; 93005; 99284; Q9967

== ENCOUNTER 2020-08-17 07:40 | Outpatient (REF) | payer MEDICAID, SELFPAY ==
--- NOTE | ~2020-08-17 | US_ITS ---
EXAMINATION: US ABDOMEN COMPLETE CLINICAL INFORMATION: Upper abdominal pain. COMPARISON: CT abdomen and pelvis 08/13/2020. Renal ultrasound 08/08/2018 and 07/04/2017. MRI abdomen and pelvis 10/21/2014. TECHNIQUE: Real-time imaging of the abdominal viscera. FINDINGS: PANCREAS: Normal. ABDOMINAL AORTA: The abdominal aorta is normal in caliber. There is a hypoechoic lesion adjacent to the aorta that measures 4 x 4 x 3.5 cm. This is similar to previous exams going back to 2014. INFERIOR VENA CAVA: Visualized portions are normal. LIVER: The liver is normal in size. The liver contour is normal. Liver echogenicity is normal. No focal hepatic lesion. There is no intrahepatic biliary duct dilatation seen. GALLBLADDER: Surgically absent. COMMON BILE DUCT: Normal in caliber measuring 0.3 cm in diameter. RIGHT KIDNEY: There is cortical thinning or scarring in the lower pole. There is a echogenic focus suggestive of cortical calcification or stone measuring 5 x 5 x 7 mm. No hydronephrosis. The kidney measures 11.2 cm in maximum dimension. LEFT KIDNEY: Normal. No hydronephrosis. No renal calculi or focal parenchymal lesions. The kidney measures 11.9 cm in maximum dimension. SPLEEN: Normal. The spleen measures 9.7 cm in maximum dimension. FREE FLUID: None. US/US abdomen complete IMPRESSION: 4 x 4 x 3.5 cm hypoechoic lesion adjacent to the aorta. This is stable going back to old exams from 2014 suggestive of a benign lesion. Cortical thinning or scarring of the lower pole of the right kidney and right lower pole calcification questionable for stone versus cortical calcification.
== END 2020-08-17 07:41 | disposition home or self-care (01) ==
LOC: HO.US 07:40
PROVIDERS: PCP Family Medicine; Visit Provider Family Medicine
DX: R10.10 Upper abdominal pain, unspecified (principal)
CPT/HCPCS: 76700

== ENCOUNTER 2020-09-06 14:46 | Emergency (ER) | payer MEDICAID, SELFPAY ==
--- NOTE | 2020-09-06 | ECG_ITS ---
Test Reason : JOEL PAIN Blood Pressure : / mmHG Vent. Rate : 077 BPM Atrial Rate : 077 BPM P-R Int : 158 ms QRS Dur : 094 ms QT Int : 392 ms P-R-T Axes : 034 001 020 degrees QTc Int : 443 ms Normal sinus rhythm Moderate voltage criteria for LVH, may be normal variant Borderline ECG When compared with ECG of 13-AUG-2020 14:22, No significant change was found Referred By: Generic ED Physician Electronically Signed By:Hugh Nguyen
--- NOTE | ~2020-09-06 | XR_ITS ---
EXAMINATION: XR CHEST CLINICAL INFORMATION: Chest pain. COMPARISON: Chest 08/13/2020 TECHNIQUE: Frontal view of the chest was obtained. FINDINGS: The lungs are well-expanded and clear of acute process. The heart size and vascularity is normal. Moderate spondylosis seen in dorsal spine. No lytic process. XR/XR chest 1V IMPRESSION: Unremarkable chest exam. Mild spondylosis dorsal spine.
[2020-09-06 14:51] VITALS: BP 172/98; PULSE 82; RESP 16; TEMP 36.5; O2SAT 97; BMI 43.9
--- NOTE | 2020-09-06 16:36 | ED_ITS ---
HPI - Chest Pain General Chief Complaint: Chest Pain Stated Complaint: CHEST PAIN Time Seen by Provider: 09/06/20 16:36 Source: patient Mode of arrival: ambulatory Limitations: language barrier History of Present Illness HPI narrative: Patient has history of hypertension chronic recurrent chest pain anxiety and depression had workup done many times in the past for the chest pain was negative comes here for the chest pains started since yesterday afternoon patient complains of pain in the left chest , sharp lasting for few seconds off and on slept well in the night without any discomfort no nausea no vomiting no diaphoresis no shortness of breath no cough denies any significant anxiety or stress pain is similar to that in the past. Patient denies any chest pain while in the ER Related Data Home Medications Medication Instructions Recorded Confirmed aspirin [Aspirin Low Dose] 81 mg PO DAILY 04/29/20 04/29/20 atorvastatin 40 mg PO BEDTIME 04/29/20 04/29/20 baclofen 10 mg PO TID 04/29/20 04/29/20 cholecalciferol (vitamin D3) 50 mcg PO DAILY 04/29/20 04/29/20 [Vitamin D3] ergocalciferol (vitamin D2) 1,250 mcg PO QWEEK 04/29/20 04/29/20 [Vitamin D2] ferrous sulfate 325 mg PO TID 04/29/20 04/29/20 fluoxetine 20 mg PO DAILY 04/29/20 04/29/20 hydrochlorothiazide 25 mg PO DAILY 04/29/20 04/29/20 lisinopril 30 mg PO DAILY 04/29/20 04/29/20 multivitamin 1 tab PO DAILY 04/29/20 04/29/20 naproxen 500 mg PO BID PRN 04/29/20 04/29/20 omeprazole 20 mg PO DAILY 04/29/20 04/29/20 tramadol 50 mg PO Q6H PRN 04/29/20 04/29/20 Previous Rx's Medication Instructions Recorded amoxicillin 500 mg PO Q8H #21 cap 07/12/20 cyclobenzaprine 10 mg PO TID PRN #14 tab 08/10/20 lidocaine 1 patch TOPICAL DAILY PRN #10 ea 08/10/20 nitrofurantoin monohyd/m-cryst 100 mg PO BID 7 Days #14 cap 08/10/20 [Macrobid] Allergies Allergy/AdvReac Type Severity Reaction Status Date / Time No Known Allergies Allergy Verified 04/29/20 09:12 [No Known Allergies*] Review of Systems Review of Systems: Constitutional : No Weight loss, No Fever, No Chills ENT/Mouth : No sore throat, No Rhinorrhea Eyes: No Eye Pain, No Swelling Cardiovascular : +Chest Pain, no palpitations Respiratory : No Cough, No Sputum, no shortness of breath Gastrointestinal : no Nausea, No Vomiting, No Diarrhea, No abdominal Pain, no black stools Genitourinary : No Dysuria, No Urinary Frequency Musculoskeletal : No joint pain, No Myalgias, No Joint Swelling Skin : No Skin Lesions, No rash Neuro : No Weakness, No Numbness, No Dizziness, No Headache Psych : No Anxiety/Panic, No Depression Heme/Lymph: No Bruising, No Lymphadenopathy Endocrine : No Polyuria, No Polydipsia All other systems reviewed and are negative [facility] Past Medical History Medical History Anemia Arthritis Depression Diabetes GERD (gastroesophageal reflux disease) Hepatitis HTN (hypertension) Hypercholesteremia Lab test negative for COVID-19 virus Surgical History Bariatric surgery status Hx of abdominal surgery Hx of section Hx of cholecystectomy Hx of dilation and curettage Hx of excision of mass Hx of gastric bypass Hx of reduction mammoplasty Hx of tubal ligation Social History Social History Alcohol intake: never Smoking Status: Never smoker Smoked in Last 30 Days: No Advance Directives: No Advance Directives Information Provided: No Physical Exam Vital Signs: Vital Signs: Last Vital Signs Temp 97.7 F 09/06/20 14:51 Pulse 82 09/06/20 14:51 Resp 16 09/06/20 14:51 BP 172/98 H 09/06/20 14:51 Pulse Ox 97 09/06/20 14:51 Body Mass Index 43.9 Appearance: Alert. Oriented X3. No acute distress. Eyes: Pupils equal, round and reactive to light. ENT: Pharynx normal. Neck: Normal inspection. Neck supple. CVS: Normal heart rate and rhythm. Pulses normal. Respiratory: No respiratory distress. Breath sounds normal. Abdomen: Soft and nontender. Bowel sounds are present, no mass palpable, no CVA tenderness Skin: Skin warm and dry. Normal skin color. Normal skin turgor. Extremities: No lower extremity edema. No calf tenderness Neuro: Oriented X 3. No motor deficit. No sensory deficit. MDM - Chest Pain Differential Diagnosis Differential diagnosis: Likely atypical chest pain Medical Records Data Attestation: I reviewed the patient's medical records. Lab Data Attestation: I reviewed the patient's lab results. 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 Prescriptions: No Action multivitamin Tablet 1 tab PO DAILY RF: 0 atorvastatin 40 mg Tablet 40 mg PO BEDTIME RF: 0 aspirin [Aspirin Low Dose] 81 mg Tablet,Delayed Release (Dr/Ec) 81 mg PO DAILY RF: 0 tramadol 50 mg Tablet 50 mg PO Q6H PRN (Reason: Pain) RF: 0 baclofen 10 mg Tablet 10 mg PO TID RF: 0 ferrous sulfate 325 mg (65 mg iron) Tablet 325 mg PO TID RF: 0 fluoxetine 20 mg Tablet 20 mg PO DAILY RF: 0 lisinopril 30 mg Tablet 30 mg PO DAILY RF: 0 hydrochlorothiazide 25 mg Tablet 25 mg PO DAILY RF: 0 ergocalciferol (vitamin D2) [Vitamin D2] 1,250 mcg (50,000 unit) Capsule 1,250 mcg PO QWEEK RF: 0 naproxen 500 mg Tablet 500 mg PO BID PRN (Reason: Pain) RF: 0 omeprazole 20 mg Tablet,Delayed Release (Dr/Ec) 20 mg PO DAILY RF: 0 cholecalciferol (vitamin D3) [Vitamin D3] 50 mcg (2,000 unit) Tablet 50 mcg PO DAILY RF: 0 amoxicillin 500 mg capsule 500 mg PO Q8H Qty: 21 RF: 0 cyclobenzaprine 10 mg tablet 10 mg PO TID PRN (Reason: muscle spasm) Qty: 14 RF: 0 lidocaine 4 % adhesive patch,medicated 1 patch topical DAILY PRN (Reason: pain) Qty: 10 RF: 0 nitrofurantoin monohyd/m-cryst [Macrobid] 100 mg capsule 100 mg PO BID 7 Days Qty: 14 RF: 0 Interventions: ED Discharge Assessment Last Done: 09/06/20 18:57 Discharge Date/Time: 09/06/20 18:58 Print Language: [place]
[2020-09-06 17:54] LABS: Troponin-I High Sensitivity 3.9 ng/L (<3.5-17.0)
== END 2020-09-06 18:58 | disposition home or self-care (01) ==
PROVIDERS: Emergency Provider Internal Medicine; PCP Family Medicine
DX: R07.89 Other chest pain (principal); Z79.82 Long term (current) use of aspirin; Z79.899 Other long term (current) drug therapy
CPT/HCPCS: 36415; 71045; 84484; 93005; 99284

== ENCOUNTER → 2020-09-21 11:38 | Outpatient (BNVA) | payer MEDICAID, SELFPAY | PROVIDERS: PCP Family Medicine; Visit Provider Physician Assistant ==

== ENCOUNTER 2020-09-28 09:47 | Outpatient (REF) | payer MEDICAID, SELFPAY | END 2020-09-28 09:48 | disposition home or self-care (01) | LOC: HO.LAB 09:47 | PROVIDERS: Visit Provider Internal Medicine | DX: Z20.822 Contact with and (suspected) exposure to COVID-19 (principal) | CPT/HCPCS: 36415; C9803; U0003; U0005 ==

== ENCOUNTER 2020-09-30 11:00 | Outpatient (RCR) | payer MEDICAID, SELFPAY | END 2020-10-15 14:37 | disposition other institution (70) | LOC: HO.PT 11:00 | PROVIDERS: PCP Family Medicine; Visit Provider Family Medicine | DX: M25.511 Pain in right shoulder (principal) | CPT/HCPCS: 97110; 97140; 97162 ==

== ENCOUNTER 2020-10-19 07:51 | Outpatient (REF) | payer MEDICAID, SELFPAY ==
[2020-10-19 08:32] LABS: COVID-19 Test Negative (Negative); IDNOW Serial# 55D5AD1C
== END 2020-10-19 07:52 | disposition home or self-care (01) ==
LOC: HO.LAB 07:51
PROVIDERS: Visit Provider Internal Medicine
DX: Z20.822 Contact with and (suspected) exposure to COVID-19 (principal)
CPT/HCPCS: 36415; 87635; C9803

== ENCOUNTER 2020-11-05 15:44 | Emergency (ER) | payer MEDICAID, SELFPAY ==
[2020-11-05 15:52] VITALS: BP 193/83; PULSE 61; RESP 16; TEMP 36.7; O2SAT 98; BMI 43.9
[2020-11-05 16:26] LABS: MANUAL DIFF FLAG NO
[2020-11-05 16:28] LABS: Basophils Percent Auto 0.3 % (0-2); Eosinophils Absolute Auto 0.1 X10*3/uL (0.0-0.4); Eosinophils Percent Auto 1.1 % (0-4); Hematocrit 35.6 % (37-47); Hemoglobin 11.9 g/dl (12.0-16.0); Imm Gran Abs Auto 0.02 X10*3/uL (0.00-0.03); Imm Gran Pct Auto 0.3 % (0.0-0.4); Lymphocytes Absolute Auto 2.4 X10*3/uL (1.2-4.9); Lymphocytes Percent Auto 38.1 % (20-40); Mean Corpuscular HGB Conc 33.4 g/dl (31.0-35.0); Mean Corpuscular Hemoglobin 31.3 pg (27.0-33.0); Mean Corpuscular Volume 93.7 fL (80-98); Monocytes Absolute Auto 0.5 X10*3/uL (0.1-1.2); Monocytes Percent Auto 7.9 % (2-11); Neutrophils Absolute Auto 3.3 X10*3/uL (2.0-8.3); Neutrophils Percent Auto 52.3 % (45-73); Platelet Count 295 X10*3/uL (160-400); Red Cell Distribution Width 12.9 % (11.0-16.0); White Blood Count 6.4 X10*3/uL (4.8-10.8)
[2020-11-05 16:58] LABS: Anion Gap 11 (12-20); Blood Urea Nitrogen 17 mg/dL (9-16); Calcium 9.5 mg/dL (8.4-10.2); Carbon Dioxide 28 mmol/L (22-29); Chloride 106 mmol/L (96-108); Creatinine Clr Calc Pharmacy 86.9; Estimated Glomerular Filt Rate > 60; Glucose Random 185 mg/dL (60-115); Potassium 4.3 mmol/L (3.3-5.1); Sodium 141 mmol/L (135-145)
--- NOTE | 2020-11-05 17:15 | ED.ABDPAIN ---
HPI - Abdominal Pain General Chief Complaint: Abdominal Pain Stated Complaint: Flank pain/Headache Time Seen by Provider: 11/05/20 17:15 Source: patient Mode of arrival: ambulatory Limitations: language barrier History of Present Illness HPI narrative: Patient complaining of pain in right upper quadrant for last 1 week been here on 08/23 with the same pain ultrasound and CT scan was negative patient status post cholecystectomy. No nausea no vomiting no fever no chills pain does get worse when she moves no urinary complaints no hematuria Related Data Home Medications Medication Instructions Recorded Confirmed aspirin [Aspirin Low Dose] 81 mg PO DAILY 04/29/20 04/29/20 atorvastatin 40 mg PO BEDTIME 04/29/20 04/29/20 baclofen 10 mg PO TID 04/29/20 04/29/20 cholecalciferol (vitamin D3) 50 mcg PO DAILY 04/29/20 04/29/20 [Vitamin D3] ergocalciferol (vitamin D2) 1,250 mcg PO QWEEK 04/29/20 04/29/20 [Vitamin D2] ferrous sulfate 325 mg PO TID 04/29/20 04/29/20 fluoxetine 20 mg PO DAILY 04/29/20 04/29/20 hydrochlorothiazide 25 mg PO DAILY 04/29/20 04/29/20 lisinopril 30 mg PO DAILY 04/29/20 04/29/20 multivitamin 1 tab PO DAILY 04/29/20 04/29/20 naproxen 500 mg PO BID PRN 04/29/20 04/29/20 omeprazole 20 mg PO DAILY 04/29/20 04/29/20 tramadol 50 mg PO Q6H PRN 04/29/20 04/29/20 Previous Rx's Medication Instructions Recorded amoxicillin 500 mg PO Q8H #21 cap 07/12/20 cyclobenzaprine 10 mg PO TID PRN #14 tab 08/10/20 lidocaine 1 patch TOPICAL DAILY PRN #10 ea 08/10/20 nitrofurantoin monohyd/m-cryst 100 mg PO BID 7 Days #14 cap 08/10/20 [Macrobid] dicyclomine 20 mg PO TID PRN #20 tab 11/05/20 nitrofurantoin monohyd/m-cryst 100 mg PO BID #20 cap 11/05/20 [Macrobid] Allergies Allergy/AdvReac Type Severity Reaction Status Date / Time No Known Allergies Allergy Verified 09/21/20 11:39 [No Known Allergies*] Review of Systems Review of Systems Constitutional : No Weight loss, No Fever, No Chills ENT/Mouth : No sore throat, No Rhinorrhea Eyes: No Eye Pain, No Swelling Cardiovascular : No Chest Pain, no palpitations Respiratory : No Cough, No Sputum, no shortness of breath Gastrointestinal : no Nausea, No Vomiting, No Diarrhea, ++ abdominal Pain, no black stools Genitourinary : No Dysuria, No Urinary Frequency Musculoskeletal : No joint pain, No Myalgias, No Joint Swelling Skin : No Skin Lesions, No rash Neuro : No Weakness, No Numbness, No Dizziness, No Headache Psych : No Anxiety/Panic, No Depression Heme/Lymph: No Bruising, No Lymphadenopathy Endocrine : No Polyuria, No Polydipsia All other systems reviewed and are negative Physical Exam Vital Signs: Vital Signs: Last Vital Signs Temp 98.0 F 11/05/20 15:52 Pulse 61 11/05/20 15:52 Resp 16 11/05/20 15:52 BP 193/83 H 11/05/20 15:52 Pulse Ox 98 11/05/20 15:52 Body Mass Index 43.9 Appearance: Alert. Oriented X3. No acute distress. Eyes: PERRLA, No Nystagmus ENT: Pharynx normal. Oral Mucosa moist Neck: Normal inspection. Neck supple. CVS: Normal heart rate and rhythm. Pulses normal. Respiratory: No respiratory distress. Equal air entry bilateral, no wheezing/rales/rhonchi Abdomen: Soft mild tenderness right upper quadrant without rebound or guarding no mass palpable. Bowel sounds are present, no mass palpable, no CVA tenderness Skin: Skin warm and dry. Normal skin color. Normal skin turgor. Extremities: No lower extremity edema. No calf tenderness Neuro: Oriented X 3. No motor deficit. No sensory deficit.No cerebellar signs , cranial nerves II-XII intact MDM - Abdominal Pain MDM Narrative Medical decision making narrative: Patient has slight UTI may be the cause for the abdominal pain will discharge her home on Macrobid Differential Diagnosis Differential diagnosis: Likely abdominal pain Medical Records Attestation: I reviewed the patient's medical records. Lab Data Attestation: I reviewed the patient's lab results. Result diagrams: 11/05/20 16:18 11/05/20 16:18 Labs: Lab Results 11/05/20 11/05/20 11/05/20 Range/Units 16:18 16:18 18:54 WBC 6.4 (4.8-10.8) X10*3/uL RBC 3.80 L (4.20-5.50) X10*6/uL Hgb 11.9 L (12.0-16.0) g/dl Hct 35.6 L (37-47) % MCV 93.7 (80-98) fL MCH 31.3 (27.0-33.0) pg MCHC 33.4 (31.0-35.0) g/dl RDW 12.9 (11.0-16.0) % Plt Count 295 (160-400) X10*3/uL MPV 9.0 L (9.4-12.3) fL Immature Gran % (Auto) 0.3 (0.0-0.4) % Neut % (Auto) 52.3 (45-73) % Lymph % (Auto) 38.1 (20-40) % [place] % (Auto) 7.9 (2-11) % Eos % (Auto) 1.1 (0-4) % Baso % (Auto) 0.3 (0-2) % Lymph # (Auto) 2.4 (1.2-4.9) X10*3/uL [place] # (Auto) 0.5 (0.1-1.2) X10*3/uL Eos # (Auto) 0.1 (0.0-0.4) X10*3/uL Baso # (Auto) 0.0 (0.0-0.2) X10*3/uL Abs Immat Gran (auto) 0.02 (0.00-0.03) X10*3/uL Absolute Neuts (auto) 3.3 (2.0-8.3) X10*3/uL Absolute Nucleated RBC 0.000 (0.0-0.012) X10*3/uL Nucleated RBC % (auto) 0.0 (0.0-0.2) /100WBC Sodium 141 (135-145) mmol/L Potassium 4.3 (3.3-5.1) mmol/L Chloride 106 (96-108) mmol/L Carbon Dioxide 28 (22-29) mmol/L Anion Gap 11 L (12-20) BUN 17 H (9-16) mg/dL Creatinine 0.86 (0.5-1.4) mg/dL Estim Creat Clear Calc 86.9 Estimated GFR > 60 Random Glucose 185 H D (60-115) mg/dL Calcium 9.5 (8.4-10.2) mg/dL Total Bilirubin 0.4 (0.0-1.0) mg/dL Direct Bilirubin < 0.2 (0.0-0.5) mg/dL AST 22 (5-31) U/L ALT 22 (0-31) U/L Alkaline Phosphatase 105 (39-117) U/L Total Protein 7.2 (6.5-8.0) g/dL Albumin 4.2 (3.5-5.0) g/dL Lipase 41 (8-78) U/L Urine Color YELLOW Urine Appearance CLOUDY Urine pH 5.5 (5.0-8.0) Ur Specific [place] >= 1.030 H (1.005-1.025) Urine Protein NEG (NEG-TRACE) MG/DL Urine Glucose (UA) NEG (NEG) MG/DL Urine Ketones NEG (NEG) MG/DL Urine Blood TRACE (NEG) Urine Nitrite POS H (NEG) Ur Leukocyte Esterase NEG (NEG) Urine RBC 1-4 (0) /HPF Urine WBC 0-2 (0-4) /HPF Ur Squamous Epith Cells 2+ /LPF Urine Bacteria 4+ /LPF Discharge Plan Discharge Clinical Impression: UTI (urinary tract infection), Abdominal pain Patient Disposition: Home, Self-Care Instructions: Urinary Tract Infection in Women (ED), Abdominal Pain (ED) Additional Instructions: Drink plenty of fluids take antibiotics as advised for urinary tract infection. Pain medicine for abdominal pain. Report to the ER if high fever/vomiting/not feeling good Prescriptions: New nitrofurantoin monohyd/m-cryst [Macrobid] 100 mg capsule 100 mg PO BID Qty: 20 RF: 0 dicyclomine 20 mg tablet 20 mg PO TID PRN (Reason: abdominal pain) Qty: 20 RF: 0 No Action multivitamin Tablet 1 tab PO DAILY RF: 0 atorvastatin 40 mg Tablet 40 mg PO BEDTIME RF: 0 aspirin [Aspirin Low Dose] 81 mg Tablet,Delayed Release (Dr/Ec) 81 mg PO DAILY RF: 0 tramadol 50 mg Tablet 50 mg PO Q6H PRN (Reason: Pain) RF: 0 baclofen 10 mg Tablet 10 mg PO TID RF: 0 ferrous sulfate 325 mg (65 mg iron) Tablet 325 mg PO TID RF: 0 fluoxetine 20 mg Tablet 20 mg PO DAILY RF: 0 lisinopril 30 mg Tablet 30 mg PO DAILY RF: 0 hydrochlorothiazide 25 mg Tablet 25 mg PO DAILY RF: 0 ergocalciferol (vitamin D2) [Vitamin D2] 1,250 mcg (50,000 unit) Capsule 1,250 mcg PO QWEEK RF: 0 naproxen 500 mg Tablet 500 mg PO BID PRN (Reason: Pain) RF: 0 omeprazole 20 mg Tablet,Delayed Release (Dr/Ec) 20 mg PO DAILY RF: 0 cholecalciferol (vitamin D3) [Vitamin D3] 50 mcg (2,000 unit) Tablet 50 mcg PO DAILY RF: 0 amoxicillin 500 mg capsule 500 mg PO Q8H Qty: 21 RF: 0 cyclobenzaprine 10 mg tablet 10 mg PO TID PRN (Reason: muscle spasm) Qty: 14 RF: 0 lidocaine 4 % adhesive patch,medicated 1 patch topical DAILY PRN (Reason: pain) Qty: 10 RF: 0 nitrofurantoin monohyd/m-cryst [Macrobid] 100 mg capsule 100 mg PO BID 7 Days Qty: 14 RF: 0 Interventions: ED Discharge Assessment Last Done: 11/05/20 19:56 Discharge Date/Time: 11/05/20 19:56 Print Language: Persian [facility] Past Medical History Medical History Abdominal pain Anemia Arthritis Depression Diabetes GERD (gastroesophageal reflux disease) Hepatitis HTN (hypertension) Hypercholesteremia Lab test negative for COVID-19 virus Surgical History Bariatric surgery status Hx of abdominal surgery Hx of section Hx of cholecystectomy Hx of dilation and curettage Hx of excision of mass Hx of gastric bypass Hx of reduction mammoplasty Hx of tubal ligation Social History Social History Household Members: Children Alcohol intake: never Smoking Status: Never smoker Advance Directives: No Advance Directives Information Provided: Yes Patient : No Current occupational status: disabled
[2020-11-05] MEDS: Dicyclomine HCl 10 MG CAPSULE 20 MG PO (17:33)
[2020-11-05 17:45] LABS: Alanine Aminotransferase 22 U/L (0-31); Albumin Level 4.2 g/dL (3.5-5.0); Alkaline Phosphatase 105 U/L (39-117); Aspartate Amino Transferase 22 U/L (5-31); Bilirubin Direct < 0.2 mg/dL (0.0-0.5); Bilirubin Total 0.4 mg/dL (0.0-1.0); Lipase 41 U/L (8-78); Total Protein 7.2 g/dL (6.5-8.0)
[2020-11-05 19:02] LABS: Glucose Urine UA NEG (NEG); Leukocyte Esterase Urine NEG (NEG); Nitrite Urine POS (NEG); PH 5.5 (5.0-8.0); Specific Gravity - Urine >= 1.030 (1.005-1.025); UACC Culture Trigger YES; Urine Blood TRACE (NEG); Urine Ketones NEG (NEG); Urine Protein NEG (NEG-TRACE)
[2020-11-05 19:03] LABS: Appearance Urine CLOUDY; Color Urine YELLOW
[2020-11-05 19:08] LABS: Bacteria Urine 4+ /LPF; Squamous Epithelial Cell Urine 2+ /LPF; WBC Urine 0-2 /HPF (0-4)
[2020-11-05] MEDS: Nitrofurantoin Monohyd/M-Cryst 100 MG CAPSULE PO (19:53)
== END 2020-11-05 19:56 | disposition home or self-care (01) ==
PROVIDERS: Emergency Provider Internal Medicine; PCP Family Medicine
DX: N39.0 Urinary tract infection, site not specified (principal); R10.11 Right upper quadrant pain; Z79.899 Other long term (current) drug therapy
CPT/HCPCS: 36415; 80048; 80076; 81001; 81003; 83690; 85025; 87086; 87088; 87186; 99283

== ENCOUNTER 2020-12-01 10:40 | Outpatient (REF) | payer MEDICARE, MEDICAID, SELFPAY ==
--- NOTE | ~2020-12-01 | MM_ITS ---
EXAMINATION: MM SCREENING DIGITAL BREAST TOMOSYNTHESIS, BILATERAL CLINICAL INFORMATION: Screening. Asymptomatic. Prior reduction mammoplasty. Prior ultrasound-guided left breast biopsy 07/02/2013 (fibroadenoma). The lifetime risk of breast cancer based on the Tyrer-Cuzick Model is 7%. COMPARISON: Mammography: 08/16/2019, 08/06/2018, 06/14/2017 TECHNIQUE: Digital breast tomosynthesis is performed in both the craniocaudal and mediolateral oblique views along with computer-aided detection (CAD). Synthesized 2D images are generated from the tomosynthesis. FINDINGS: There are scattered areas of fibroglandular density (ACR BI-RADS breast composition Category b). Parenchymal pattern is similar to prior entities. Again, there are bilateral regional round and rim calcifications lower breasts, most all are dermal. There is stable heavily calcified nodule periareolar left breast. Nodule left breast central 12:00 position with overlying biopsy clip marker is consistent with the known fibroadenoma. Neither breast shows interval mass or developing density. The axilla are unremarkable. MM/MM tomosynthesis screening BI IMPRESSION: No mammographic evidence of malignancy. ASSESSMENT: BI-RADS 2: Benign RECOMMENDATION: Routine annual mammography screening. This patient's information was entered into a reminder system with a target due date for their next mammogram.
== END 2020-12-01 10:41 | disposition home or self-care (01) ==
LOC: HO.MAMMO 10:40
PROVIDERS: Visit Provider Family Medicine
DX: Z12.31 Encounter for screening mammogram for malignant neoplasm of breast (principal)
CPT/HCPCS: 77063; 77067

== ENCOUNTER 2020-12-04 08:42 | Outpatient (REF) | payer MEDICARE, MEDICAID, SELFPAY ==
[2020-12-04 13:28] LABS: Glucose Urine UA NEG (NEG); Leukocyte Esterase Urine NEG (NEG); Nitrite Urine NEG (NEG); Specific Gravity - Urine 1.025 (1.005-1.025); Urine Blood TRACE (NEG); Urine Ketones NEG (NEG); Urine Protein NEG (NEG-TRACE)
[2020-12-04 13:29] LABS: Appearance Urine CLOUDY; Color Urine YELLOW
[2020-12-04 13:43] LABS: Amorphous Sediment Urine 4+ /LPF; RBC Urine 0-2 /HPF (0); Squamous Epithelial Cell Urine TRACE /LPF; WBC Urine 0 /HPF (0-4)
[2020-12-05 07:30] LABS: CT PCR NOT DETECTED (Not Detect.); NG PCR NOT DETECTED (Not Detect.)
[2020-12-05 12:49] LABS: BV Int Neg Control Negative (Negative); BV Int Pos Control Positive (Positive)
== END 2020-12-04 08:43 | disposition home or self-care (01) ==
LOC: HO.LAB 08:42
PROVIDERS: Visit Provider Advanced Practice Midwife
DX: Z11.3 Encounter for screening for infections with a predominantly sexual mode of transmission (principal); R10.9 Unspecified abdominal pain; N89.8 Other specified noninflammatory disorders of vagina; Z20.2 Contact with and (suspected) exposure to infections with a predominantly sexual mode of transmission; R39.89 Other symptoms and signs involving the genitourinary system
CPT/HCPCS: 81001; 81003; 87480; 87491; 87510; 87591; 87660; 99212

== ENCOUNTER → 2020-12-07 10:55 | Outpatient (BNVA) | payer MEDICAID, SELFPAY | PROVIDERS: Visit Provider Advanced Practice Midwife ==

== ENCOUNTER 2021-04-19 07:45 | Outpatient (REF) | payer MEDICARE, MEDICAID, SELFPAY ==
--- NOTE | ~2021-04-19 | XR_ITS ---
EXAMINATION: XR BOTH KNEES AP STANDING XR RIGHT KNEE, 2 VIEWS XR LEFT KNEE, 2 VIEWS CLINICAL INFORMATION: Right and left knee pain. COMPARISON: Bilateral knee radiographs dated 07/11/2018. Left knee radiographs dated 05/02/2016. TECHNIQUE: Standing AP view of both knees and lateral and sunrise views of the right and left knee. FINDINGS: Right Knee: Severe lateral patellofemoral compartment joint space narrowing. Moderate medial compartment joint space narrowing. Tricompartmental marginal osteophytes. Patellofemoral bony remodeling and subchondral cystic change. No significant joint effusion. No abnormal soft tissue calcification. No acute fracture or dislocation. Left Knee: Severe patellofemoral and moderate medial compartment joint space narrowing with patellofemoral bony remodeling. Tricompartmental marginal osteophytes. No significant joint effusion. No abnormal soft tissue calcification. No acute fracture or dislocation. XR/XR knee standing BI IMPRESSION: Right Knee: Tricompartmental osteoarthritis, most severe within the patellofemoral compartment. Findings are similar when compared to the most recent examination. Left knee: Tricompartmental osteoarthritis, most severe within the patellofemoral compartment. Findings are progressed when compared to the most recent examination.
--- NOTE | ~2021-04-19 | XR_ITS ---
EXAMINATION: XR BOTH KNEES AP STANDING XR RIGHT KNEE, 2 VIEWS XR LEFT KNEE, 2 VIEWS CLINICAL INFORMATION: Right and left knee pain. COMPARISON: Bilateral knee radiographs dated 07/11/2018. Left knee radiographs dated 05/02/2016. TECHNIQUE: Standing AP view of both knees and lateral and sunrise views of the right and left knee. FINDINGS: Right Knee: Severe lateral patellofemoral compartment joint space narrowing. Moderate medial compartment joint space narrowing. Tricompartmental marginal osteophytes. Patellofemoral bony remodeling and subchondral cystic change. No significant joint effusion. No abnormal soft tissue calcification. No acute fracture or dislocation. Left Knee: Severe patellofemoral and moderate medial compartment joint space narrowing with patellofemoral bony remodeling. Tricompartmental marginal osteophytes. No significant joint effusion. No abnormal soft tissue calcification. No acute fracture or dislocation. XR/XR knee LT 2V IMPRESSION: Right Knee: Tricompartmental osteoarthritis, most severe within the patellofemoral compartment. Findings are similar when compared to the most recent examination. Left knee: Tricompartmental osteoarthritis, most severe within the patellofemoral compartment. Findings are progressed when compared to the most recent examination.
--- NOTE | ~2021-04-19 | XR_ITS ---
EXAMINATION: XR BOTH KNEES AP STANDING XR RIGHT KNEE, 2 VIEWS XR LEFT KNEE, 2 VIEWS CLINICAL INFORMATION: Right and left knee pain. COMPARISON: Bilateral knee radiographs dated 07/11/2018. Left knee radiographs dated 05/02/2016. TECHNIQUE: Standing AP view of both knees and lateral and sunrise views of the right and left knee. FINDINGS: Right Knee: Severe lateral patellofemoral compartment joint space narrowing. Moderate medial compartment joint space narrowing. Tricompartmental marginal osteophytes. Patellofemoral bony remodeling and subchondral cystic change. No significant joint effusion. No abnormal soft tissue calcification. No acute fracture or dislocation. Left Knee: Severe patellofemoral and moderate medial compartment joint space narrowing with patellofemoral bony remodeling. Tricompartmental marginal osteophytes. No significant joint effusion. No abnormal soft tissue calcification. No acute fracture or dislocation. XR/XR knee RT 2V IMPRESSION: Right Knee: Tricompartmental osteoarthritis, most severe within the patellofemoral compartment. Findings are similar when compared to the most recent examination. Left knee: Tricompartmental osteoarthritis, most severe within the patellofemoral compartment. Findings are progressed when compared to the most recent examination.
== END 2021-04-19 07:46 | disposition home or self-care (01) ==
LOC: HO.HOSX 07:45
PROVIDERS: Visit Provider Orthopaedic Surgery
DX: M17.0 Bilateral primary osteoarthritis of knee (principal); E66.01 Morbid (severe) obesity due to excess calories
CPT/HCPCS: 73560; 73565; 99212

== ENCOUNTER 2021-08-13 08:45 | Outpatient (REF) | payer MEDICARE, MEDICAID, SELFPAY ==
[2021-08-14 14:22] LABS: BV Int Neg Control Negative (Negative); BV Int Pos Control Positive (Positive)
[2021-08-14 18:32] LABS: CT PCR NOT DETECTED (Not Detect.); NG PCR NOT DETECTED (Not Detect.)
[2021-08-18 09:32] LABS: HPV mRNA E6/E7 rflx Not Detected (Not Detected)
== END 2021-08-13 08:46 | disposition home or self-care (01) ==
LOC: HO.LAB 08:45
PROVIDERS: Visit Provider Advanced Practice Midwife
DX: Z01.419 Encounter for gynecological examination (general) (routine) without abnormal findings (principal); Z11.51 Encounter for screening for human papillomavirus (HPV); Z20.2 Contact with and (suspected) exposure to infections with a predominantly sexual mode of transmission; E66.01 Morbid (severe) obesity due to excess calories
CPT/HCPCS: 87480; 87491; 87510; 87591; 87624; 87660; 88142

== ENCOUNTER 2021-08-20 14:55 | Outpatient (REF) | payer MEDICARE, MEDICAID, SELFPAY ==
--- NOTE | ~2021-08-20 | US_ITS ---
EXAMINATION: US PELVIS CLINICAL INFORMATION: Intermittent vaginal pressure and pain COMPARISON: Previous CT August 2020 and pelvic ultrasound August 2018 TECHNIQUE: Ultrasound of the pelvis is performed using both transabdominal and transvaginal transducers along with Doppler. Transvaginal imaging is performed due to inadequate visualization transabdominally. FINDINGS: The uterus is retroverted and measures 9.2 x 8.9 x 8.1 cm. There are multiple predominantly hypoechoic uterine lesions probably representing fibroids. At least 8 are identified. There is a 1.5 x 1.4 x 1.3 cm lesion in the right lower uterine segment that appears unchanged. There is a 3.5 x 2.6 x 3 cm lesion in the right uterine body that appears unchanged. There is a 5.2 x 4.8 x 4.9 cm pedunculated or subserosal lesion in the left upper uterine body may be slightly increased from 4.6 x 4 x 4.2 cm. There is a 3.5 x 3.5 x 3 cm lesion in the uterine fundus that is unchanged. There is a newly appreciated 1.8 x 1.2 cm lesion in the posterior lower uterine segment, 2.8 x 2.5 x 2.3 cm lesion in the right uterine fundus, 2.5 x 2.3 x 2.9 cm subserosal lesion in the right upper uterine body or fundus and 1.5 x 1.5 x 1.3 cm lesion in the uterine body near the endometrium. The endometrium is difficult to visualize due to the fibroids. The endometrium does not appear thickened measuring 0.2 cm. The right ovary is seen transabdominally only. The right ovary is enlarged and measures 5.3 x 3.4 x 3.3 cm. There are 2 right ovarian cysts, largest measuring 3.9 x 3.2 x 3.6 cm. The left ovary is not seen. There is no fluid in the pelvis. US/US pelvic and transvaginal IMPRESSION: Enlarged fibroid uterus. Fibroids appear increased in size and number compared to August 2018 ultrasound. Enlarged right ovary with 2 simple cysts, largest measuring 3.9 x 3.2 x 3.6 cm. Left ovary not seen.
== END 2021-08-20 14:56 | disposition home or self-care (01) ==
LOC: HO.US 14:55
PROVIDERS: PCP Family Medicine; Visit Provider Family Medicine
DX: R10.2 Pelvic and perineal pain (principal)
CPT/HCPCS: 76830; 76856

== ENCOUNTER → 2021-09-02 11:45 | Outpatient (BNVA) | payer MEDICARE, MEDICAID, SELFPAY | PROVIDERS: Visit Provider Physician Assistant | DX: Z12.11 Encounter for screening for malignant neoplasm of colon (principal); Z78.9 Other specified health status | CPT/HCPCS: 99202 ==

== ENCOUNTER → 2021-09-21 11:06 | Outpatient (BNVA) | payer MEDICARE, MEDICAID, SELFPAY | PROVIDERS: Visit Provider Advanced Practice Midwife | DX: D21.9 Benign neoplasm of connective and other soft tissue, unspecified (principal) | CPT/HCPCS: 99212 ==

== ENCOUNTER → 2021-10-05 08:14 | Outpatient (BNVA) | payer MEDICARE, MEDICAID, SELFPAY | PROVIDERS: PCP Family Medicine; Visit Provider Obstetrics & Gynecology | DX: D25.9 Leiomyoma of uterus, unspecified (principal); N83.201 Unspecified ovarian cyst, right side | CPT/HCPCS: 99212 ==

== ENCOUNTER 2021-10-22 11:43 | Inpatient (IN) | payer MEDICARE, MEDICAID, SELFPAY ==
[2021-10-22] VITALS (14 sets, daily range): BP systolic 93–152; BP diastolic 41–92; PULSE 72–150; RESP 15–23; TEMP 36.1–36.9; O2SAT 97–100; BMI 45.6; BMI 44.6
--- NOTE | ~2021-10-22 | XR_ITS ---
EXAMINATION: XR CHEST CLINICAL INFORMATION: Tachycardia. COMPARISON: 09/06/2020 chest radiograph. TECHNIQUE: Frontal view of the chest was obtained. FINDINGS: No significant abnormality is noted involving the heart, lungs, mediastinum, bony thorax or soft tissues. XR/XR chest 1V IMPRESSION: No acute cardiopulmonary process.
--- NOTE | 2021-10-22 11:45 | ECG_ITS ---
Test Reason : fast heartrate Blood Pressure : / mmHG Vent. Rate : 151 BPM Atrial Rate : 000 BPM P-R Int : 000 ms QRS Dur : 092 ms QT Int : 324 ms P-R-T Axes : 000 -02 080 degrees QTc Int : 513 ms Supraventricular tachycardia Left ventricular hypertrophy with repolarization abnormality ( R in aVL ) Abnormal ECG When compared with ECG of 06-SEP-2020 15:03, Vent. rate has increased BY 74 BPM Referred By: Generic ED Physician Electronically Signed By:ADIS ERICKSON MD
[2021-10-22] MEDS: dilTIAZem HCL 50 MG/10 ML VIAL 20 MG IVPUSH (12:09)
[2021-10-22 12:13] LABS: MANUAL DIFF FLAG NO
[2021-10-22 12:14] LABS: Basophils Percent Auto 0.3 % (0-2); Eosinophils Percent Auto 0.4 % (0-4); Hematocrit 41.1 % (37.0-47.0); Imm Gran Abs Auto 0.02 X10*3/uL (0.00-0.03); Imm Gran Pct Auto 0.3 % (0.0-0.4); Lymphocytes Absolute Auto 2.3 X10*3/uL (1.2-4.9); Lymphocytes Percent Auto 30.3 % (20-40); Mean Corpuscular HGB Conc 34.1 g/dl (31.0-35.0); Mean Corpuscular Hemoglobin 31.7 pg (27.0-33.0); Mean Platelet Volume 9.7 fL (9.4-12.3); Monocytes Absolute Auto 0.6 X10*3/uL (0.1-1.2); Monocytes Percent Auto 8.2 % (2-11); Neutrophils Absolute Auto 4.5 x10*3/uL (2.0-8.3); Neutrophils Percent Auto 60.5 % (45-73); Platelet Count 377 X10*3/uL (160-400); Red Blood Count 4.42 X10*6/uL (4.20-5.50); Red Cell Distribution Width 12.2 % (11.0-16.0); White Blood Count 7.4 X10*3/uL (4.8-10.8)
--- NOTE | 2021-10-22 12:15 | ECG_ITS ---
Test Reason : atrial fibrillation Blood Pressure : / mmHG Vent. Rate : 108 BPM Atrial Rate : 300 BPM P-R Int : 000 ms QRS Dur : 092 ms QT Int : 350 ms P-R-T Axes : 000 002 014 degrees QTc Int : 469 ms Atrial flutter with variable A-V block Nonspecific ST abnormality Abnormal ECG When compared with ECG of 22-OCT-2021 11:42, Atrial flutter has replaced Possible Supraventricular tachycardia /atrial flutter with 2:1 conduction T wave inversion no longer evident in Lateral leads Vent. rate has decreased Referred By: Jame Hood Electronically Signed By:ADIS ERICKSON MD
[2021-10-22] MEDS: 0.9 % Sodium Chloride 1,000 ML 999 ML IV ×2 (12:16→13:10)
[2021-10-22 12:46] LABS: Anion Gap 17 (12-20); Blood Urea Nitrogen 27 mg/dL (9-16); Calcium 9.5 mg/dL (8.4-10.2); Carbon Dioxide 23 mmol/L (22-29); Chloride 97 mmol/L (96-108); Creatinine Clr Calc Pharmacy 55.6; Estimated Glomerular Filt Rate 41; Glucose Random 561 mg/dL (60-115); Potassium 4.7 mmol/L (3.3-5.1); Sodium 132 mmol/L (135-145)
[2021-10-22 12:47] LABS: Troponin-I High Sensitivity 13.4 ng/L (<3.5-17.0)
--- NOTE | 2021-10-22 12:55 | ED_ITS ---
HPI - Arrhythmia/Palpitations General Chief Complaint: Arrhythmia/Palpitations Stated Complaint: Fast heartbeat/Dizzy/High blood sugar Time Seen by Provider: 10/22/21 11:53 Source: patient Mode of arrival: ambulatory Limitations: language barrier (Swedish speaking only, hospice manager used) History of Present Illness HPI narrative: 55-year-old female who presents emergency department for evaluation of rapid heart rate, dizziness, weakness, increased thirst and elevated glucose of 360 at home. The patient states that her symptoms started on 10/20/2021 (3 days prior to evaluation). She states that she had intermittent sensation of palpitations were heart was beating rapidly. She states that this continued over the next several days and today she states that her heart was beating faster. She states that she felt lightheaded and dizzy. She was feeling very weak and was having difficulty walking. She states that she did check her sugar and it was high at 360. She states she had increased thirst and increased urinary frequency. She states she did feel short of breath and did have dyspnea on exertion. She denied fever, chills, rhinorrhea, sore throat, cough, chest pain. She states that in the past she has had a intermittent episodes of palpitations but has never had palpitations that of last this long. She does not have a history of atrial fibrillation. Related Data Home Medications Medication Instructions Recorded Confirmed aspirin 81 mg tablet,delayed 81 mg PO DAILY 04/29/20 09/21/21 release (Aspirin Low Dose) baclofen 10 mg tablet 10 mg PO TID 04/29/20 09/21/21 cholecalciferol (vitamin D3) 50 50 mcg PO DAILY 04/29/20 09/21/21 mcg (2,000 unit) tablet (Vitamin D3) ergocalciferol (vitamin D2) 1,250 1,250 mcg PO QWEEK 04/29/20 09/02/21 mcg (50,000 unit) capsule (Vitamin D2) ferrous sulfate 325 mg (65 mg 325 mg PO TID 04/29/20 09/21/21 iron) tablet hydrochlorothiazide 25 mg tablet 25 mg PO DAILY 04/29/20 09/21/21 lisinopril 30 mg tablet 30 mg PO DAILY 04/29/20 09/21/21 multivitamin 1 tab PO DAILY 04/29/20 09/21/21 omeprazole 20 mg tablet,delayed 20 mg PO DAILY 04/29/20 09/21/21 release acetaminophen 650 mg 1 tab PO Q8H PRN 10/22/21 tablet,extended release atorvastatin 80 mg tablet 1 tab PO DAILY 10/22/21 docusate sodium 100 mg capsule 1 cap PO BID 10/22/21 fluoxetine 20 mg capsule 3 cap PO QAM 10/22/21 fluticasone propionate 50 1 - 2 spray INTRANASAL DAILY PRN 10/22/21 mcg/actuation nasal spray,suspension metformin 500 mg tablet,extended 2 tab PO BID 10/22/21 release 24 hr sennosides 8.6 mg tablet (senna) 2 tab PO BEDTIME PRN 10/22/21 trazodone 100 mg tablet 2 tab PO BEDTIME PRN 10/22/21 Allergies Allergy/AdvReac Type Severity Reaction Status Date / Time No Known Allergies Allergy Verified 10/22/21 12:04 [No Known Allergies*] Review of Systems Review of Systems: Yes all other systems are reviewed and are negative [facility] Past Medical History [facility] Narrative: Past surgical history: Cholecystectomy, gastric bypass, bilateral tubal ligation. Social history: She states she lives with her daughter. She denies tobacco use. She denies alcohol use. She denies drug use. Medical History Abdominal pain Anemia Arthritis Depression Diabetes GERD (gastroesophageal reflux disease) Hepatitis HTN (hypertension) Hypercholesteremia Lab test negative for COVID-19 virus Surgical History Bariatric surgery status Hx of abdominal surgery Hx of section Hx of cholecystectomy Hx of dilation and curettage Hx of excision of mass Hx of gastric bypass Hx of reduction mammoplasty Hx of tubal ligation Social History Social History Household Members: Children Alcohol intake: never Advance Directives: No Advance Directives Information Provided: No Patient : No Current occupational status: disabled Current occupation: rt handed Physical Exam Vital Signs: Vital Signs: Last Vital Signs Temp 98.4 F 10/22/21 11:58 Pulse 120 H 10/22/21 14:40 Resp 18 10/22/21 13:53 BP 117/65 10/22/21 14:40 Pulse Ox 99 10/22/21 13:53 BMI result Body Mass Index 44.6 Const: Other: Awake, alert, female patient, very pleasant cooperative, does not appear to be in distress HEENT: Head: Yes normal to inspection, Yes normocephalic and Yes atraumatic Ears: external ears normal General nose exam: Normal external nose present Face and sinus: Yes normal facial exam Mouth: Normal oral and palatal mucosa present Throat: Yes posterior oropharynx normal Eyes: General: appearance normal, both eyes and all related structures Pupils: Equal, round and reactive pupils present Neck: Neck: Yes normal visual inspection, Yes no lymphadenopathy, Yes trachea midline and Yes supple Chest: Chest palpation & inspection: normal inspection of the chest and normal palpation of entire chest wall Resp: Effort & Inspection: normal respiratory effort and able to speak in complete sentences Auscultation: clear to auscultation bilaterally Cardio: Rate: tachycardic Rhythm: regular rhythm Heart sounds: S1 normal heart sound present, S2 normal heart sound present and no murmurs GI: Inspection: Yes normal to inspection, Yes Abdominal panniculus present and Yes obesity Palpation (GI): Soft to palpation, nontender and no guarding Auscultation: normal bowel sounds : General: Yes no CVA tenderness Back/Spine/Pelvis: Back: no CVA tenderness Skin: General skin exam: no rashes or lesions noted Neuro: Cranial nerves: Yes CN's II-XII intact bilaterally and Yes Equal, round and reactive pupils present Cognition (Neuro): normal cognition Motor exam (neuro): 5/5 motor strength present throughout Extrem: General: Yes normal to inspection Psych: Appearance: grossly normal Speech and movement: Normal speech and movement present Affect: normal affect Attitude: cooperative Thought process: Normal thought process present Thought content: Normal thought content present Course Course Course Narrative: 55-year-old female with history of diabetes, hypertension, hyperlipidemia who p resents emergency department for evaluation of palpitations x3 days, weakness, shortness of breath, increased thirst increased frequency. Presentation to the emergency department she was found to be tachycardic and her EKG was consistent with atrial flutter with a rate of 150. Her exam was otherwise unremarkable. was brought back into the emergency department and treated diltiazem 20 mg IV with improvement of her rate. She was started on a diltiazem drip. Patient's glucose was greater than 500 and she was given regular insulin 10 mg IV in ordered to get normal saline IV x2 L. Laboratory evaluation: CBC was normal. BMP revealed a low sodium of 132, elevated BUN of 27 and an elevated glucose of 561. High sensitivity troponin I was detectable but not elevated at 13.4. Radiology evaluation: One-view chest x-ray revealed no acute process. Twelve EKG: Initially revealed a SVT with a rate of 151, after diltiazem the patient was in atrial flutter with variable block with a rate of 108. There was no acute ST segment elevation or depression he these EKGs. I will discuss admission with the covering typing secretary and the covering hospitalist. The patient's heart rate is varying I did order a diltiazem drip as per protocol. 1444: Laboratory evaluation: D-dimer was below detectable limits. TSH was normal. The patient did have a drop in her systolic blood pressure to 80. I suspect that this is secondary to being volume depleted due to her high glucose and her volume loss to her urinary frequency. Patient was given a total of 3 L of normal saline with improvement of her systolic blood pressure to the 120 range. Patient's point of care glucose also improved to 329. The typing secretary recommended treating the patient with Lovenox therefore she was given Lovenox 110 mg subcutaneously. I did discuss the patient's presentation with the covering hospitalist, Dr. Sandra. MDM - Arrhythmia/Palpitations Lab Data Attestation: I reviewed the patient's lab results. Result diagrams: 10/22/21 12:08 10/22/21 13:19 Labs: Lab Results 10/22/21 10/22/21 10/22/21 Range/Units 12:08 12:08 12:08 WBC 7.4 (4.8-10.8) X10*3/uL RBC 4.42 (4.20-5.50) X10*6/uL Hgb 14.0 (12.0-16.0) g/dl Hct 41.1 (37.0-47.0) % MCV 93.0 (80.0-98.0) fL MCH 31.7 (27.0-33.0) pg MCHC 34.1 (31.0-35.0) g/dl RDW 12.2 (11.0-16.0) % Plt Count 377 (160-400) X10*3/uL MPV 9.7 (9.4-12.3) fL Immature Gran % (Auto) 0.3 (0.0-0.4) % Neut % (Auto) 60.5 (45-73) % Lymph % (Auto) 30.3 (20-40) % [place] % (Auto) 8.2 (2-11) % Eos % (Auto) 0.4 (0-4) % Baso % (Auto) 0.3 (0-2) % Lymph # (Auto) 2.3 (1.2-4.9) X10*3/uL [place] # (Auto) 0.6 (0.1-1.2) X10*3/uL Eos # (Auto) 0.0 (0.0-0.4) X10*3/uL Baso # (Auto) 0.0 (0.0-0.2) X10*3/uL Abs Immat Gran (auto) 0.02 (0.00-0.03) X10*3/uL Absolute Neuts (auto) 4.5 (2.0-8.3) x10*3/uL Absolute Nucleated RBC 0.000 (0.0-0.012) X10*3/uL Nucleated RBC % (auto) 0.0 (0.0-0.2) /100WBC PT (9.9-13.0) SEC INR (0.9-1.1) APTT (24.1-38.0) SEC D-Dimer High Sensitivty NG/ML Sodium 132 L (135-145) mmol/L Potassium 4.7 (3.3-5.1) mmol/L Chloride 97 (96-108) mmol/L Carbon Dioxide 23 (22-29) mmol/L Anion Gap 17 (12-20) BUN 27 H (9-16) mg/dL Creatinine 1.34 (0.5-1.4) mg/dL Estim Creat Clear Calc 55.6 Estimated GFR 41 POC Glucose (60-115) mg/dL Random Glucose 561 H* D (60-115) mg/dL Calcium 9.5 (8.4-10.2) mg/dL Total Bilirubin (0.0-1.0) mg/dL AST (5-31) U/L ALT (0-31) U/L Alkaline Phosphatase (39-117) U/L Troponin I High Sens 13.4 (<3.5-17.0) ng/L Total Protein (6.5-8.0) g/dL Albumin (3.5-5.0) g/dL Lipase (8-78) U/L TSH (0.32-4.0) uIU/mL Urine Color Urine Appearance Urine pH (5.0-8.0) Ur Specific [place] (1.005-1.025) Urine Protein (NEG-TRACE) MG/DL Urine Glucose (UA) (NEG) MG/DL Urine Ketones (NEG) MG/DL Urine Blood (NEG) Urine Nitrite (NEG) Ur Leukocyte Esterase (NEG) Urine RBC (0) /HPF Urine WBC (0-4) /HPF Ur Squamous Epith Cells /LPF Urine Bacteria /LPF COVID-19 (FRANC) (Negative) COVID-19 Clin Com Influenza Type A (FLAKITA) (Negative) Influenza Type B (FLAKITA) (Negative) Influenza A & B Note 10/22/21 10/22/21 10/22/21 Range/Units 13:06 13:06 13:19 WBC (4.8-10.8) X10*3/uL RBC (4.20-5.50) X10*6/uL Hgb (12.0-16.0) g/dl Hct (37.0-47.0) % MCV (80.0-98.0) fL MCH (27.0-33.0) pg MCHC (31.0-35.0) g/dl RDW (11.0-16.0) % Plt Count (160-400) X10*3/uL MPV (9.4-12.3) fL Immature Gran % (Auto) (0.0-0.4) % Neut % (Auto) (45-73) % Lymph % (Auto) (20-40) % [place] % (Auto) (2-11) % Eos % (Auto) (0-4) % Baso % (Auto) (0-2) % Lymph # (Auto) (1.2-4.9) X10*3/uL [place] # (Auto) (0.1-1.2) X10*3/uL Eos # (Auto) (0.0-0.4) X10*3/uL Baso # (Auto) (0.0-0.2) X10*3/uL Abs Immat Gran (auto) (0.00-0.03) X10*3/uL Absolute Neuts (auto) (2.0-8.3) x10*3/uL Absolute Nucleated RBC (0.0-0.012) X10*3/uL Nucleated RBC % (auto) (0.0-0.2) /100WBC PT 11.4 (9.9-13.0) SEC INR 1.0 (0.9-1.1) APTT 33.9 (24.1-38.0) SEC D-Dimer High Sensitivty < 150 NG/ML Sodium (135-145) mmol/L Potassium (3.3-5.1) mmol/L Chloride (96-108) mmol/L Carbon Dioxide (22-29) mmol/L Anion Gap (12-20) BUN (9-16) mg/dL Creatinine (0.5-1.4) mg/dL Estim Creat Clear Calc Estimated GFR POC Glucose (60-115) mg/dL Random Glucose (60-115) mg/dL Calcium (8.4-10.2) mg/dL Total Bilirubin (0.0-1.0) mg/dL AST (5-31) U/L ALT (0-31) U/L Alkaline Phosphatase (39-117) U/L Troponin I High Sens (<3.5-17.0) ng/L Total Protein (6.5-8.0) g/dL Albumin (3.5-5.0) g/dL Lipase (8-78) U/L TSH (0.32-4.0) uIU/mL Urine Color Urine Appearance Urine pH (5.0-8.0) Ur Specific [place] (1.005-1.025) Urine Protein (NEG-TRACE) MG/DL Urine Glucose (UA) (NEG) MG/DL Urine Ketones (NEG) MG/DL Urine Blood (NEG) Urine Nitrite (NEG) Ur Leukocyte Esterase (NEG) Urine RBC (0) /HPF Urine WBC (0-4) /HPF Ur Squamous Epith Cells /LPF Urine Bacteria /LPF COVID-19 (FRANC) Negative (Negative) COVID-19 Clin Com See Note Influenza Type A (FLAKITA) Negative (Negative) Influenza Type B (FLAKITA) Negative (Negative) Influenza A & B Note See Note 10/22/21 10/22/21 10/22/21 Range/Units 13:19 14:03 14:22 WBC (4.8-10.8) X10*3/uL RBC (4.20-5.50) X10*6/uL Hgb (12.0-16.0) g/dl Hct (37.0-47.0) % MCV (80.0-98.0) fL MCH (27.0-33.0) pg MCHC (31.0-35.0) g/dl RDW (11.0-16.0) % Plt Count (160-400) X10*3/uL MPV (9.4-12.3) fL Immature Gran % (Auto) (0.0-0.4) % Neut % (Auto) (45-73) % Lymph % (Auto) (20-40) % [place] % (Auto) (2-11) % Eos % (Auto) (0-4) % Baso % (Auto) (0-2) % Lymph # (Auto) (1.2-4.9) X10*3/uL [place] # (Auto) (0.1-1.2) X10*3/uL Eos # (Auto) (0.0-0.4) X10*3/uL Baso # (Auto) (0.0-0.2) X10*3/uL Abs Immat Gran (auto) (0.00-0.03) X10*3/uL Absolute Neuts (auto) (2.0-8.3) x10*3/uL Absolute Nucleated RBC (0.0-0.012) X10*3/uL Nucleated RBC % (auto) (0.0-0.2) /100WBC PT (9.9-13.0) SEC INR (0.9-1.1) APTT (24.1-38.0) SEC D-Dimer High Sensitivty NG/ML Sodium 134 L (135-145) mmol/L Potassium 4.8 (3.3-5.1) mmol/L Chloride 100 (96-108) mmol/L Carbon Dioxide 24 (22-29) mmol/L Anion Gap 15 (12-20) BUN 26 H (9-16) mg/dL Creatinine 1.10 (0.5-1.4) mg/dL Estim Creat Clear Calc 67.7 Estimated GFR 52 POC Glucose 329 H (60-115) mg/dL Random Glucose 476 H* (60-115) mg/dL Calcium 8.9 D (8.4-10.2) mg/dL Total Bilirubin 0.7 (0.0-1.0) mg/dL AST 13 D (5-31) U/L ALT 12 (0-31) U/L Alkaline Phosphatase 95 (39-117) U/L Troponin I High Sens (<3.5-17.0) ng/L Total Protein 6.6 (6.5-8.0) g/dL Albumin 3.7 (3.5-5.0) g/dL Lipase 41 (8-78) U/L TSH 1.52 (0.32-4.0) uIU/mL Urine Color YELLOW Urine Appearance CLEAR Urine pH 6.5 (5.0-8.0) Ur Specific [place] 1.015 (1.005-1.025) Urine Protein NEG (NEG-TRACE) MG/DL Urine Glucose (UA) >=1000 H (NEG) MG/DL Urine Ketones NEG (NEG) MG/DL Urine Blood TRACE (NEG) Urine Nitrite NEG (NEG) Ur Leukocyte Esterase NEG (NEG) Urine RBC 1-4 (0) /HPF Urine WBC 0 (0-4) /HPF Ur Squamous Epith Cells 3+ /LPF Urine Bacteria 2+ /LPF COVID-19 (FRANC) (Negative) COVID-19 Clin Com Influenza Type A (FLAKITA) (Negative) Influenza Type B (FLAKITA) (Negative) Influenza A & B Note ECG Data Attestation: I personally reviewed and interpreted this ECG as follows: Interpretation: EKG 1.: 1142: Supraventricular tachycardia with a rate of 151, no ST segment elevation, no ST segment depression, no significant T-wave abnormalities. EKG 2.: 1245: Atrial flutter with during AV block, rate of 108, normal QRS and QTC intervals, no ST segment elevation, no ST segment depression, no T-wave abnormalities Critical Care Time Critical Care Time Critical Care Time: Yes Total Critical Care Time: 45 Attestation: Critical Care: The patient was critically ill with a high probability of imminent or life threatening deterioration. I spent greater than 30 minutes of discontinuous time evaluating the patient,delivering critical care at the bedside, discussing and evaluating pertinent data with consultants. Critical care time does not include time spent performing separately billable procedures or teaching. Total time spent performing critical care was 45 minutes. Discharge Plan Discharge Prescriptions: No Action multivitamin Tablet 1 tab PO DAILY 0RF aspirin [Aspirin Low Dose] 81 mg Tablet,Delayed Release (Dr/Ec) 81 mg PO DAILY 0RF baclofen 10 mg Tablet 10 mg PO TID 0RF ferrous sulfate 325 mg (65 mg iron) Tablet 325 mg PO TID 0RF lisinopril 30 mg Tablet 30 mg PO DAILY 0RF hydrochlorothiazide 25 mg Tablet 25 mg PO DAILY 0RF ergocalciferol (vitamin D2) [Vitamin D2] 1,250 mcg (50,000 unit) Capsule 1,250 mcg PO QWEEK 0RF omeprazole 20 mg Tablet,Delayed Release (Dr/Ec) 20 mg PO DAILY 0RF cholecalciferol (vitamin D3) [Vitamin D3] 50 mcg (2,000 unit) Tablet 50 mcg PO DAILY 0RF atorvastatin 80 mg tablet 1 tab PO DAILY 0RF sennosides [senna] 8.6 mg tablet 2 tab PO BEDTIME PRN (Reason: constipation) 0RF acetaminophen 650 mg tablet extended release 1 tab PO Q8H PRN (Reason: fever) 0RF docusate sodium 100 mg capsule 1 cap PO BID 0RF trazodone 100 mg tablet 2 tab PO BEDTIME PRN (Reason: Insomnia) 0RF fluoxetine 20 mg capsule 3 cap PO QAM 0RF fluticasone propionate 50 mcg/actuation spray,suspension 1 - 2 spray intranasal DAILY PRN (Reason: Allergy Symptoms) 0RF metformin 500 mg tablet extended release 24 hr 2 tab PO BID 0RF
[2021-10-22] MEDS: Insulin Regular, Human 100 UNIT/ML 3 ML VIAL 10 UNIT IVPUSH (13:12)
[2021-10-22] MEDS: dilTIAZem HCL 125 MG in 0.9 % Sodium Chloride 100 ML 10 MG IVCONT (13:16)
[2021-10-22 13:36] LABS: Prothrombin Time 11.4 SEC (9.9-13.0)
[2021-10-22 13:38] LABS: Partial Thromboplastin Time 33.9 SEC (24.1-38.0)
[2021-10-22 13:50] LABS: D Dimer High Sensitivity < 150 NG/ML
[2021-10-22 13:53] LABS: COVID-19 Test Negative (Negative); IDNOW Serial# 08D9AD1C; Influenza A Negative (Negative); Influenza B2 Negative (Negative)
[2021-10-22 13:59] LABS: Alanine Aminotransferase 12 U/L (0-31); Albumin Level 3.7 g/dL (3.5-5.0); Alkaline Phosphatase 95 U/L (39-117); Anion Gap 15 (12-20); Aspartate Amino Transferase 13 U/L (5-31); Bilirubin Total 0.7 mg/dL (0.0-1.0); Blood Urea Nitrogen 26 mg/dL (9-16); Calcium 8.9 mg/dL (8.4-10.2); Carbon Dioxide 24 mmol/L (22-29); Chloride 100 mmol/L (96-108); Creatinine Clr Calc Pharmacy 67.7; Estimated Glomerular Filt Rate 52; Glucose Random 476 mg/dL (60-115); Lipase 41 U/L (8-78); Potassium 4.8 mmol/L (3.3-5.1); Sodium 134 mmol/L (135-145); Total Protein 6.6 g/dL (6.5-8.0)
[2021-10-22 14:03] LABS: TSH reflex Free T4 1.52 uIU/mL (0.32-4.0)
[2021-10-22 14:12] LABS: Glucose, Whole Blood 329 mg/dL (60-115)
[2021-10-22 14:29] LABS: Appearance Urine CLEAR; Color Urine YELLOW; Glucose Urine UA >=1000 MG/DL (NEG); Leukocyte Esterase Urine NEG (NEG); Nitrite Urine NEG (NEG); PH 6.5 (5.0-8.0); Specific Gravity - Urine 1.015 (1.005-1.025); UACC Culture Trigger NO; Urine Blood TRACE (NEG); Urine Ketones NEG (NEG); Urine Protein NEG (NEG-TRACE)
[2021-10-22 14:36] LABS: WBC Urine 0 /HPF (0-4)
[2021-10-22 14:37] LABS: Bacteria Urine 2+ /LPF; Squamous Epithelial Cell Urine 3+ /LPF
[2021-10-22 14:46] LABS: Amphetamine Screen Urine Not Detected (Not Detect); Barbiturates, Urine Not Detected (Not Detect); Benzodiazepines Screen Urine Not Detected (Not Detect); Cannabinoid Screen Urine Not Detected (Not Detect); Fentanyl, urine Not Detected (Not Detect); Opiate Screen Urine Not Detected (Not Detect); Phencyclidine Screen Urine Not Detected (Not Detect)
[2021-10-22 14:50] LABS: Cocaine Screen Urine Not Detected (Not Detect)
--- NOTE | 2021-10-22 15:11 | PM.IMHP ---
History of Present Illness Date of Service: 10/22/21 Attending physician on admission: Jessica Sandra Chief Complaint: Hypertension, uncontrolled diabetes 55-year-old female with multiple comorbidities including hypertension, diabetes noncompliant to medication, hypercholesteremia, anemia-came to the hospital because of palpitations, generalized weakness, polyuria and polydipsia in addition patient checked her sugar this morning at home was 360. patient states that her symptoms started on 10/20/2021 (3 days prior to evaluation).? She states that she had intermittent sensation of palpitations were heart was beating rapidly.? She states that this continued over the next several days and today she states that her heart was beating faster.? She states that she felt lightheaded and dizzy.? She was feeling very weak generalized. Patient denies short of breath , fever, chills, rhinorrhea, sore throat, cough, chest pain.? She states that in the past she has had a intermittent episodes of palpitations but has never had palpitations that of last this long. In the ED patient received insulin, 3 L IV fluid, IV diltiazem drip: Her blood pressure was softer on 90s range so received fluid and blood pressure a coming in 200 range now, heart rate is 100-120 on diltiazem drip, fingersticks are improving in 300 range. Lab imaging EKG reviewed: Chest x-ray seems fine, EKG shows a flutter with variable AV block-medical rate around 108. BUN 16 BUN 26, creatinine 1.10 Fingersticks initially 560-trending down to 329 with insulin. Review of Systems Review of Systems: As above. Yes all other systems are reviewed and are negative [facility] Medical History Abdominal pain Anemia Arthritis Depression Diabetes GERD (gastroesophageal reflux disease) Hepatitis HTN (hypertension) Hypercholesteremia Lab test negative for COVID-19 virus Pertinent family history: Her mother had diabetes and hypertension, her siblings mostly has diabetes . Surgical History Bariatric surgery status Hx of abdominal surgery Hx of section Hx of cholecystectomy Hx of dilation and curettage Hx of excision of mass Hx of gastric bypass Hx of reduction mammoplasty Hx of tubal ligation Social History Household Members: Children Alcohol intake: never Advance Directives: No Advance Directives Information Provided: No Patient : No Current occupational status: disabled Current occupation: rt handed Meds Allergies Allergy/AdvReac Type Severity Reaction Status Date / Time No Known Allergies Allergy Verified 10/22/21 12:04 [No Known Allergies*] Active Medications: Current Medications Dextrose (Dextrose 50 % 25 Gm/50 Ml Syringe) 25 gm IVPUSH Q15M PRN; Protocol PRN Reason: per Hypoglycemia Standing Ord. Enoxaparin Sodium (Enoxaparin Sodium 120 Mg/0.8 Ml Syringe) 110 mg SUBCUT Q12H PHYLICIA Glucose (Glucose Gel 15 Gm Gel..Gram.) 15 gm PO Q15M PRN; Protocol PRN Reason: per Hypoglycemia Standing Ord. Diltiazem HCl 125 mg/ Sodium (Chloride) 125 mls @ 0 mls/hr IVCONT .Q0M PHYLICIA; Protocol Last Titration: 10/22/21 14:40 Dose: 10 mg/hr, 10 mls/hr Documented by: Sodium Chloride (Ns) 1,000 mls @ 100 mls/hr IVCONT .Q10H PHYLICIA Insulin Human Lispro (Insulin Lispro 100 Unit/Ml 3 Ml Vial) 0 unit SUBCUT QIDACHS PHYLICIA; Protocol Pharmacy Consult (Consult Rx Perform Med Rec) 1 each MISCELLANE ONCE PRN PRN Reason: Consult order Sodium Chloride (0.9 % Sodium Chloride Flush 3 Ml Syringe) 3 ml IVFLUSH QSHIFT [facility] Home Medications Medication Instructions Recorded Confirmed Last Taken Type aspirin 81 mg tablet,delayed 81 mg PO DAILY 04/29/20 09/21/21 Unknown History release (Aspirin Low Dose) baclofen 10 mg tablet 10 mg PO TID 04/29/20 09/21/21 Unknown History cholecalciferol (vitamin D3) 50 50 mcg PO DAILY 04/29/20 09/21/21 Unknown History mcg (2,000 unit) tablet (Vitamin D3) ergocalciferol (vitamin D2) 1,250 1,250 mcg PO QWEEK 04/29/20 09/02/21 Unknown History mcg (50,000 unit) capsule (Vitamin D2) ferrous sulfate 325 mg (65 mg 325 mg PO TID 04/29/20 09/21/21 Unknown History iron) tablet hydrochlorothiazide 25 mg tablet 25 mg PO DAILY 04/29/20 09/21/21 Unknown History lisinopril 30 mg tablet 30 mg PO DAILY 04/29/20 09/21/21 Unknown History multivitamin 1 tab PO DAILY 04/29/20 09/21/21 Unknown History omeprazole 20 mg tablet,delayed 20 mg PO DAILY 04/29/20 09/21/21 Unknown History release acetaminophen 650 mg 1 tab PO Q8H PRN 10/22/21 Unknown History tablet,extended release atorvastatin 80 mg tablet 1 tab PO DAILY 10/22/21 Unknown History docusate sodium 100 mg capsule 1 cap PO BID 10/22/21 Unknown History fluoxetine 20 mg capsule 3 cap PO QAM 10/22/21 Unknown History fluticasone propionate 50 1 - 2 spray INTRANASAL DAILY PRN 10/22/21 Unknown History mcg/actuation nasal spray,suspension metformin 500 mg tablet,extended 2 tab PO BID 10/22/21 Unknown History release 24 hr sennosides 8.6 mg tablet (senna) 2 tab PO BEDTIME PRN 10/22/21 Unknown History trazodone 100 mg tablet 2 tab PO BEDTIME PRN 10/22/21 Unknown History Physical Exam Vital Signs and Narrative: Vital Signs: Last Vital Signs Temp 98.4 F 10/22/21 11:58 Pulse 120 H 10/22/21 14:40 Resp 18 10/22/21 13:53 BP 117/65 10/22/21 14:40 Pulse Ox 99 10/22/21 13:53 BMI result Body Mass Index 44.6 Appearance: Alert.? Oriented X3.? not in distress.? Eyes: Pupils equal, round and reactive to light.? Sclera nonicteric.? ENT: Pharynx normal.? Moist mucous membranes. cvs: irregular rythem, [id number]. res: clear to auscultation ,no rhonchii or wheezing abd: no rebound or guarding ,nt, bs present. ext pulses present , no cyanosis . neuro: axo3 , nonfocal. Results Labs CBC and Chem 7: 10/22/21 12:08 10/22/21 13:19 Labs: Laboratory Results - last 24 hr 10/22/21 10/22/21 10/22/21 12:08 12:08 12:08 MCV 93.0 MCH 31.7 MCHC 34.1 RDW 12.2 Plt Count 377 MPV 9.7 Immature Gran % (Auto) 0.3 Neut % (Auto) 60.5 Lymph % (Auto) 30.3 [place] % (Auto) 8.2 Eos % (Auto) 0.4 Baso % (Auto) 0.3 Lymph # (Auto) 2.3 [place] # (Auto) 0.6 Eos # (Auto) 0.0 Baso # (Auto) 0.0 Abs Immat Gran (auto) 0.02 Absolute Neuts (auto) 4.5 Absolute Nucleated RBC 0.000 Nucleated RBC % (auto) 0.0 PT INR APTT D-Dimer High Sensitivty Anion Gap 17 Estim Creat Clear Calc 55.6 Estimated GFR 41 POC Glucose Random Glucose 561 H* D Calcium 9.5 Total Bilirubin AST ALT Alkaline Phosphatase Troponin I High Sens 13.4 Total Protein Albumin Lipase TSH Urine Color Urine Appearance Urine pH Ur Specific [place] Urine Protein Urine Glucose (UA) Urine Ketones Urine Blood Urine Nitrite Ur Leukocyte Esterase Urine RBC Urine WBC Ur Squamous Epith Cells Urine Bacteria Urine Opiates Screen Urine Fentanyl Screen Ur Barbiturates Screen Ur Phencyclidine Scrn Ur Amphetamines Screen U Benzodiazepines Scrn Urine Cocaine Screen U Marijuana (THC) Screen COVID-19 (FRANC) COVID-19 Clin Com Influenza Type A (FLAKITA) Influenza Type B (FLAKITA) Influenza A & B Note 10/22/21 10/22/21 10/22/21 13:06 13:06 13:19 MCV MCH MCHC RDW Plt Count MPV Immature Gran % (Auto) Neut % (Auto) Lymph % (Auto) [place] % (Auto) Eos % (Auto) Baso % (Auto) Lymph # (Auto) [place] # (Auto) Eos # (Auto) Baso # (Auto) Abs Immat Gran (auto) Absolute Neuts (auto) Absolute Nucleated RBC Nucleated RBC % (auto) PT 11.4 INR 1.0 APTT 33.9 D-Dimer High Sensitivty < 150 Anion Gap Estim Creat Clear Calc Estimated GFR POC Glucose Random Glucose Calcium Total Bilirubin AST ALT Alkaline Phosphatase Troponin I High Sens Total Protein Albumin Lipase TSH Urine Color Urine Appearance Urine pH Ur Specific [place] Urine Protein Urine Glucose (UA) Urine Ketones Urine Blood Urine Nitrite Ur Leukocyte Esterase Urine RBC Urine WBC Ur Squamous Epith Cells Urine Bacteria Urine Opiates Screen Urine Fentanyl Screen Ur Barbiturates Screen Ur Phencyclidine Scrn Ur Amphetamines Screen U Benzodiazepines Scrn Urine Cocaine Screen U Marijuana (THC) Screen COVID-19 (FRANC) Negative COVID-19 Clin Com See Note Influenza Type A (FLAKITA) Negative Influenza Type B (FLAKITA) Negative Influenza A & B Note See Note 10/22/21 10/22/21 10/22/21 13:19 14:03 14:22 MCV MCH MCHC RDW Plt Count MPV Immature Gran % (Auto) Neut % (Auto) Lymph % (Auto) [place] % (Auto) Eos % (Auto) Baso % (Auto) Lymph # (Auto) [place] # (Auto) Eos # (Auto) Baso # (Auto) Abs Immat Gran (auto) Absolute Neuts (auto) Absolute Nucleated RBC Nucleated RBC % (auto) PT INR APTT D-Dimer High Sensitivty Anion Gap 15 Estim Creat Clear Calc 67.7 Estimated GFR 52 POC Glucose 329 H Random Glucose 476 H* Calcium 8.9 D Total Bilirubin 0.7 AST 13 D ALT 12 Alkaline Phosphatase 95 Troponin I High Sens Total Protein 6.6 Albumin 3.7 Lipase 41 TSH 1.52 Urine Color YELLOW Urine Appearance CLEAR Urine pH 6.5 Ur Specific [place] 1.015 Urine Protein NEG Urine Glucose (UA) >=1000 H Urine Ketones NEG Urine Blood TRACE Urine Nitrite NEG Ur Leukocyte Esterase NEG Urine RBC 1-4 Urine WBC 0 Ur Squamous Epith Cells 3+ Urine Bacteria 2+ Urine Opiates Screen Urine Fentanyl Screen Ur Barbiturates Screen Ur Phencyclidine Scrn Ur Amphetamines Screen U Benzodiazepines Scrn Urine Cocaine Screen U Marijuana (THC) Screen COVID-19 (FRANC) COVID-19 Clin Com Influenza Type A (FLAKITA) Influenza Type B (FLAKITA) Influenza A & B Note 10/22/21 14:22 MCV MCH MCHC RDW Plt Count MPV Immature Gran % (Auto) Neut % (Auto) Lymph % (Auto) [place] % (Auto) Eos % (Auto) Baso % (Auto) Lymph # (Auto) [place] # (Auto) Eos # (Auto) Baso # (Auto) Abs Immat Gran (auto) Absolute Neuts (auto) Absolute Nucleated RBC Nucleated RBC % (auto) PT INR APTT D-Dimer High Sensitivty Anion Gap Estim Creat Clear Calc Estimated GFR POC Glucose Random Glucose Calcium Total Bilirubin AST ALT Alkaline Phosphatase Troponin I High Sens Total Protein Albumin Lipase TSH Urine Color Urine Appearance Urine pH Ur Specific [place] Urine Protein Urine Glucose (UA) Urine Ketones Urine Blood Urine Nitrite Ur Leukocyte Esterase Urine RBC Urine WBC Ur Squamous Epith Cells Urine Bacteria Urine Opiates Screen Not Detected Urine Fentanyl Screen Not Detected Ur Barbiturates Screen Not Detected Ur Phencyclidine Scrn Not Detected Ur Amphetamines Screen Not Detected U Benzodiazepines Scrn Not Detected Urine Cocaine Screen Not Detected U Marijuana (THC) Screen Not Detected COVID-19 (FRANC) COVID-19 Clin Com Influenza Type A (FLAKITA) Influenza Type B (FLAKITA) Influenza A & B Note Imaging Radiologist's Impressions: Impressions Chest X-Ray 10/22/21 12:24 IMPRESSION: No acute cardiopulmonary process. Assessment and Plan (1) New onset atrial flutter: Status: Acute (2) Acute hyperglycemia: Status: Acute Plan 55-year-old female who came with palpitation and generalized weakness, diabetic and hypertensive but not compliance with medication-getting admitted for a flutter and uncontrolled diabetes. 1. Atrial flutter Patient had palpitations Started on Cardizem drip right now heart rate is around 100-120 range Patient's symptoms are improving 1 troponin negative, 2nd troponin ordered TSH normal, D-dimer negative Monitor on tele Continue Cardizem drip, IV fluids since patient blood pressure is continue IV fluid since but patient blood pressure is on the softer side. Darion Vasc score is 3-start Lovenox Cardiology evaluation and echo If blood pressure keep trending down, patient may need ICU evaluation. 2. Uncontrolled diabetes: Probably related to diet and medication noncompliance Responded well to insulin Continue hydration, fingerstick with sliding scale coverage, added hemoglobin A1c 3.HLP: Continue home medication medical reconciliation is still pending. 4. Hypertension: Will hold all lisinopril and hydrochlorothiazide for now since the blood pressure is on the softer side instead we will give some fluid. 5. Morbid obesity: Advised to cut down calories and encouraged for weight loss. Of note she had a gastric bypass surgery in the past too. 6. GERD: Continue omeprazole. 7. niraj: Due to uncontrolled diabetes and dehydration, continue gentle hydration. 8. DVT prophylaxis: Started on Lovenox. Above management discussed the patient in detail length she understand in agreement with the above plan, time spent 70 minute, patient full code, considering new onset atrial flutter as well as uncontrolled diabetes, niraj patient may benefit from 2 midnight stays. Quality Stroke Does the patient have a stroke diagnosis?: No VTE Prior VTE?: No VTE Risk Level:: Medical - moderate - high VTE Device Contraindication: N/A - Device Ordered VTE Drug Contraindication: N/A - Med Ordered
[2021-10-22] MEDS: Enoxaparin Sodium 120 MG/0.8 ML SYRINGE 110 MG SUBCUT (15:29)
[2021-10-22 15:30] LABS: Estimated Average Glucose 289 mg/dL; Hemoglobin A1c % 11.7 %
[2021-10-22] MEDS: 0.9 % Sodium Chloride 1,000 ML 100 ML IVCONT (15:31)
[2021-10-22] MEDS: 0.9 % Sodium Chloride Flush 3 ML SYRINGE IVFLUSH ×2 (15:32→20:33)
--- NOTE | 2021-10-22 15:36 | PHA.MEDREC ---
Pharmacy Consult ? Medication Reconciliation Pharmacy has completed the medication reconciliation. No remarkable issues. Deborah Delgadillo, AnkitD
[2021-10-22 15:54] LABS: Troponin-I High Sensitivity 14.2 ng/L (<3.5-17.0)
[2021-10-22 17:47] LABS: Glucose, Whole Blood 257 mg/dL (60-115)
[2021-10-22] MEDS: Insulin Glargine,Hum.rec.anlog 100 UNIT/ML 10 ML VIAL SUBCUT (18:23)
[2021-10-22] MEDS: Insulin Lispro 100 UNIT/ML 3 ML VIAL SUBCUT ×2 (18:24→20:32)
[2021-10-22 20:31] LABS: Glucose, Whole Blood 309 mg/dL (60-115)
[2021-10-22] MEDS: Acetaminophen 325 MG TABLET 650 MG PO (20:32)
[2021-10-22] MEDS: Atorvastatin Calcium 80 MG TABLET PO (20:32)
[2021-10-22] MEDS: Ferrous Sulfate 324 MG TABLET.DR PO (20:32)
[2021-10-23] MEDS: 0.9 % Sodium Chloride 1,000 ML 100 ML IVCONT (01:54)
[2021-10-23] MEDS: dilTIAZem HCL 125 MG in 0.9 % Sodium Chloride 100 ML 10 MG IVCONT (02:57)
[2021-10-23] MEDS: Enoxaparin Sodium 120 MG/0.8 ML SYRINGE 110 MG SUBCUT (02:57)
[2021-10-23 03:30] VITALS: BP 140/82; PULSE 65; RESP 15; TEMP 36.2; O2SAT 97
[2021-10-23] MEDS: Acetaminophen 325 MG TABLET 650 MG PO (05:43)
[2021-10-23] MEDS: Omeprazole 20 MG CAPSULE.DR PO (05:43)
[2021-10-23 06:57] LABS: Hematocrit 34.8 % (37.0-47.0); Hemoglobin 11.9 g/dl (12.0-16.0); Mean Corpuscular HGB Conc 34.2 g/dl (31.0-35.0); Mean Corpuscular Hemoglobin 32.2 pg (27.0-33.0); Mean Corpuscular Volume 94.3 fL (80.0-98.0); Mean Platelet Volume 11.1 fL (9.4-12.3); Platelet Count 271 X10*3/uL (160-400); Red Blood Count 3.69 X10*6/uL (4.20-5.50); Red Cell Distribution Width 12.4 % (11.0-16.0); White Blood Count 6.4 X10*3/uL (4.8-10.8)
[2021-10-23 07:25] LABS: Anion Gap 11 (12-20); Blood Urea Nitrogen 16 mg/dL (9-16); Calcium 8.6 mg/dL (8.4-10.2); Carbon Dioxide 22 mmol/L (22-29); Chloride 107 mmol/L (96-108); Creatinine Clr Calc Pharmacy 99.4; Estimated Glomerular Filt Rate > 60; Glucose Random 284 mg/dL (60-115); Potassium 4.3 mmol/L (3.3-5.1); Sodium 136 mmol/L (135-145)
[2021-10-23 07:36] VITALS: BP 146/78; PULSE 52; RESP 18; TEMP 36.4; O2SAT 98
[2021-10-23 07:40] LABS: Glucose, Whole Blood 287 mg/dL (60-115)
--- NOTE | 2021-10-23 07:55 | HO.PM.IMPN ---
Subjective Subjective Date of Service: 10/23/21 Interval History: A KI, uncontrolled diabetes, AFib with RVR Review of Systems Ventricular rate is still running 110-120range. Denies any palpitation or chest pain or shortness of breath or fever or chills or cough or phlegm. Physical Exam Vital Signs: Vital Signs: Last Vital Signs Temp 97.5 F 10/23/21 07:36 Pulse 52 10/23/21 07:36 Resp 18 10/23/21 07:36 BP 146/78 H 10/23/21 07:36 Pulse Ox 98 10/23/21 07:36 BMI result Body Mass Index 44.6 Appearance: Alert.? Oriented X3.? not in distress.? Eyes: Pupils equal, round and reactive to light.? Sclera nonicteric.? ENT: Pharynx normal.? Moist mucous membranes. cvs: irregular rythem, [id number]. res: clear to auscultation ,no rhonchii or wheezing abd: no rebound or guarding ,nt, bs present. ext pulses present , no cyanosis . neuro: axo3 , nonfocal. Objective Data Active Medications Acetaminophen (Acetaminophen 325 Mg Tablet) 650 mg PO Q8H PRN PRN Reason: fever Last Admin: 10/23/21 05:43 Dose: 650 mg Documented by: FÁTIMA Aspirin (Aspirin Enteric Coated 81 Mg Tablet.) 81 mg PO DAILY COUNT INCLUDES THE [facility] Atorvastatin Calcium (Atorvastatin Calcium 80 Mg Tablet) 80 mg PO BEDTIME COUNT INCLUDES THE [facility] Last Admin: 10/22/21 20:32 Dose: 80 mg Documented by: FÁTIMA Baclofen (Baclofen 10 Mg Tablet) 10 mg PO TID PRN PRN Reason: Spasms Dextrose (Dextrose 50 % 25 Gm/50 Ml Syringe) 25 gm IVPUSH Q15M PRN; Protocol PRN Reason: per Hypoglycemia Standing Ord. Docusate Sodium (Docusate Sodium 100 Mg Capsule) 100 mg PO BID PRN PRN Reason: Constipation Enoxaparin Sodium (Enoxaparin Sodium 120 Mg/0.8 Ml Syringe) 110 mg SUBCUT Q12H COUNT INCLUDES THE [facility] Last Admin: 10/23/21 02:57 Dose: 110 mg Documented by: FÁTIMA Ferrous Sulfate (Ferrous Sulfate 324 Mg Tablet.) 324 mg PO TID COUNT INCLUDES THE [facility] Last Admin: 10/22/21 20:32 Dose: 324 mg Documented by: FÁTIMA Fluoxetine HCl (Fluoxetine Hcl 20 Mg Capsule) 60 mg PO DAILY COUNT INCLUDES THE [facility] Fluticasone Propionate (Fluticasone Propionate Nasal 16 Gm [place]) 1 - 2 spray NOSTRIL-B DAILY PRN PRN Reason: Allergy Symptoms Glucose (Glucose Gel 15 Gm Gel..Gram.) 15 gm PO Q15M PRN; Protocol PRN Reason: per Hypoglycemia Standing Ord. Diltiazem HCl 125 mg/ Sodium (Chloride) 125 mls @ 0 mls/hr IVCONT .Q0M COUNT INCLUDES THE [facility]; Protocol Last Titration: 10/23/21 05:16 Dose: 15 mg/hr, 15 mls/hr Documented by: FÁTIMA Sodium Chloride (Ns) 1,000 mls @ 100 mls/hr IVCONT .Q10H COUNT INCLUDES THE [facility] Last Admin: 10/23/21 01:54 Dose: 100 mls/hr Documented by: FÁTIMA Insulin Glargine (Insulin Glargine,Hum.Rec.Anlog 100 Unit/Ml 10 Ml Vial) 5 unit SUBCUT DAILY COUNT INCLUDES THE [facility] Last Admin: 10/22/21 18:23 Dose: 5 unit Documented by: JERARDO Insulin Human Lispro (Insulin Lispro 100 Unit/Ml 3 Ml Vial) 0 unit SUBCUT QIDACHS COUNT INCLUDES THE [facility]; Protocol Last Admin: 10/22/21 20:32 Dose: 8 unit Documented by: FÁTIMA Metformin HCl (Metformin Hcl Er 500 Mg Tab.Er.24h) 1,000 mg PO BID COUNT INCLUDES THE [facility] Multivitamins/Vitamin C (Multivitamin Tablet) 1 tab PO DAILY COUNT INCLUDES THE [facility] Omeprazole (Omeprazole 20 Mg Capsule.) 20 mg PO DAILY@0630 COUNT INCLUDES THE [facility] Last Admin: 10/23/21 05:43 Dose: 20 mg Documented by: FÁTIMA Pharmacy Consult (Consult Rx Perform Med Rec) 1 each MISCELLANE ONCE PRN PRN Reason: Consult order Senna (Sennosides 8.6 Mg Tablet) 17.2 mg PO BEDTIME PRN PRN Reason: constipation Sodium Chloride (0.9 % Sodium Chloride Flush 3 Ml Syringe) 3 ml IVFLUSH QSHIFT COUNT INCLUDES THE [facility] Last Admin: 10/22/21 20:33 Dose: 3 ml Documented by: FÁTIMA Trazodone HCl (Trazodone Hcl 100 Mg Tablet) 200 mg PO BEDTIME PRN PRN Reason: Insomnia Vitamin D (Cholecalciferol (Vitamin D3) 25 Mcg Tablet) 50 mcg PO DAILY PHYLICIA Labs CBC & Chem 7: 10/23/21 06:06 10/23/21 06:06 Labs: Laboratory Results - last 24 hr 10/22/21 10/22/21 10/22/21 12:08 12:08 12:08 MCV 93.0 MCH 31.7 MCHC 34.1 RDW 12.2 Plt Count 377 MPV 9.7 Immature Gran % (Auto) 0.3 Neut % (Auto) 60.5 Lymph % (Auto) 30.3 [place] % (Auto) 8.2 Eos % (Auto) 0.4 Baso % (Auto) 0.3 Lymph # (Auto) 2.3 [place] # (Auto) 0.6 Eos # (Auto) 0.0 Baso # (Auto) 0.0 Abs Immat Gran (auto) 0.02 Absolute Neuts (auto) 4.5 Absolute Nucleated RBC 0.000 Nucleated RBC % (auto) 0.0 PT INR APTT D-Dimer High Sensitivty Anion Gap 17 Estim Creat Clear Calc 55.6 Estimated GFR 41 POC Glucose Random Glucose 561 H* D Estimat Average Glucose Hemoglobin A1c % Calcium 9.5 Total Bilirubin AST ALT Alkaline Phosphatase Troponin I High Sens 13.4 Total Protein Albumin Lipase TSH Urine Color Urine Appearance Urine pH Ur Specific [place] Urine Protein Urine Glucose (UA) Urine Ketones Urine Blood Urine Nitrite Ur Leukocyte Esterase Urine RBC Urine WBC Ur Squamous Epith Cells Urine Bacteria Urine Opiates Screen Urine Fentanyl Screen Ur Barbiturates Screen Ur Phencyclidine Scrn Ur Amphetamines Screen U Benzodiazepines Scrn Urine Cocaine Screen U Marijuana (THC) Screen COVID-19 (FRANC) COVID-19 Clin Com Influenza Type A (FLAKITA) Influenza Type B (FLAKITA) Influenza A & B Note 10/22/21 10/22/21 10/22/21 12:08 13:06 13:06 MCV MCH MCHC RDW Plt Count MPV Immature Gran % (Auto) Neut % (Auto) Lymph % (Auto) [place] % (Auto) Eos % (Auto) Baso % (Auto) Lymph # (Auto) [place] # (Auto) Eos # (Auto) Baso # (Auto) Abs Immat Gran (auto) Absolute Neuts (auto) Absolute Nucleated RBC Nucleated RBC % (auto) PT INR APTT D-Dimer High Sensitivty Anion Gap Estim Creat Clear Calc Estimated GFR POC Glucose Random Glucose Estimat Average Glucose 289 Hemoglobin A1c % 11.7 Calcium Total Bilirubin AST ALT Alkaline Phosphatase Troponin I High Sens Total Protein Albumin Lipase TSH Urine Color Urine Appearance Urine pH Ur Specific [place] Urine Protein Urine Glucose (UA) Urine Ketones Urine Blood Urine Nitrite Ur Leukocyte Esterase Urine RBC Urine WBC Ur Squamous Epith Cells Urine Bacteria Urine Opiates Screen Urine Fentanyl Screen Ur Barbiturates Screen Ur Phencyclidine Scrn Ur Amphetamines Screen U Benzodiazepines Scrn Urine Cocaine Screen U Marijuana (THC) Screen COVID-19 (FRANC) Negative COVID-19 Clin Com See Note Influenza Type A (FLAKITA) Negative Influenza Type B (FLAKITA) Negative Influenza A & B Note See Note 10/22/21 10/22/21 10/22/21 13:19 13:19 14:03 MCV MCH MCHC RDW Plt Count MPV Immature Gran % (Auto) Neut % (Auto) Lymph % (Auto) [place] % (Auto) Eos % (Auto) Baso % (Auto) Lymph # (Auto) [place] # (Auto) Eos # (Auto) Baso # (Auto) Abs Immat Gran (auto) Absolute Neuts (auto) Absolute Nucleated RBC Nucleated RBC % (auto) PT 11.4 INR 1.0 APTT 33.9 D-Dimer High Sensitivty < 150 Anion Gap 15 Estim Creat Clear Calc 67.7 Estimated GFR 52 POC Glucose 329 H Random Glucose 476 H* Estimat Average Glucose Hemoglobin A1c % Calcium 8.9 D Total Bilirubin 0.7 AST 13 D ALT 12 Alkaline Phosphatase 95 Troponin I High Sens Total Protein 6.6 Albumin 3.7 Lipase 41 TSH 1.52 Urine Color Urine Appearance Urine pH Ur Specific [place] Urine Protein Urine Glucose (UA) Urine Ketones Urine Blood Urine Nitrite Ur Leukocyte Esterase Urine RBC Urine WBC Ur Squamous Epith Cells Urine Bacteria Urine Opiates Screen Urine Fentanyl Screen Ur Barbiturates Screen Ur Phencyclidine Scrn Ur Amphetamines Screen U Benzodiazepines Scrn Urine Cocaine Screen U Marijuana (THC) Screen COVID-19 (FRANC) COVID-19 Clin Com Influenza Type A (FLAKITA) Influenza Type B (FLAKITA) Influenza A & B Note 10/22/21 10/22/21 10/22/21 14:22 14:22 15:18 MCV MCH MCHC RDW Plt Count MPV Immature Gran % (Auto) Neut % (Auto) Lymph % (Auto) [place] % (Auto) Eos % (Auto) Baso % (Auto) Lymph # (Auto) [place] # (Auto) Eos # (Auto) Baso # (Auto) Abs Immat Gran (auto) Absolute Neuts (auto) Absolute Nucleated RBC Nucleated RBC % (auto) PT INR APTT D-Dimer High Sensitivty Anion Gap Estim Creat Clear Calc Estimated GFR POC Glucose Random Glucose Estimat Average Glucose Hemoglobin A1c % Calcium Total Bilirubin AST ALT Alkaline Phosphatase Troponin I High Sens 14.2 Total Protein Albumin Lipase TSH Urine Color YELLOW Urine Appearance CLEAR Urine pH 6.5 Ur Specific [place] 1.015 Urine Protein NEG Urine Glucose (UA) >=1000 H Urine Ketones NEG Urine Blood TRACE Urine Nitrite NEG Ur Leukocyte Esterase NEG Urine RBC 1-4 Urine WBC 0 Ur Squamous Epith Cells 3+ Urine Bacteria 2+ Urine Opiates Screen Not Detected Urine Fentanyl Screen Not Detected Ur Barbiturates Screen Not Detected Ur Phencyclidine Scrn Not Detected Ur Amphetamines Screen Not Detected U Benzodiazepines Scrn Not Detected Urine Cocaine Screen Not Detected U Marijuana (THC) Screen Not Detected COVID-19 (FRANC) COVID-19 Clin Com Influenza Type A (FLAKITA) Influenza Type B (FLAKITA) Influenza A & B Note 10/22/21 10/22/21 10/23/21 17:22 20:27 06:06 MCV 94.3 MCH 32.2 MCHC 34.2 RDW 12.4 Plt Count 271 D MPV 11.1 Immature Gran % (Auto) Neut % (Auto) Lymph % (Auto) [place] % (Auto) Eos % (Auto) Baso % (Auto) Lymph # (Auto) [place] # (Auto) Eos # (Auto) Baso # (Auto) Abs Immat Gran (auto) Absolute Neuts (auto) Absolute Nucleated RBC 0.000 Nucleated RBC % (auto) 0.0 PT INR APTT D-Dimer High Sensitivty Anion Gap Estim Creat Clear Calc Estimated GFR POC Glucose 257 H 309 H Random Glucose Estimat Average Glucose Hemoglobin A1c % Calcium Total Bilirubin AST ALT Alkaline Phosphatase Troponin I High Sens Total Protein Albumin Lipase TSH Urine Color Urine Appearance Urine pH Ur Specific [place] Urine Protein Urine Glucose (UA) Urine Ketones Urine Blood Urine Nitrite Ur Leukocyte Esterase Urine RBC Urine WBC Ur Squamous Epith Cells Urine Bacteria Urine Opiates Screen Urine Fentanyl Screen Ur Barbiturates Screen Ur Phencyclidine Scrn Ur Amphetamines Screen U Benzodiazepines Scrn Urine Cocaine Screen U Marijuana (THC) Screen COVID-19 (FRANC) COVID-19 Clin Com Influenza Type A (FLAKITA) Influenza Type B (FLAKITA) Influenza A & B Note 10/23/21 10/23/21 06:06 07:35 MCV MCH MCHC RDW Plt Count MPV Immature Gran % (Auto) Neut % (Auto) Lymph % (Auto) [place] % (Auto) Eos % (Auto) Baso % (Auto) Lymph # (Auto) [place] # (Auto) Eos # (Auto) Baso # (Auto) Abs Immat Gran (auto) Absolute Neuts (auto) Absolute Nucleated RBC Nucleated RBC % (auto) PT INR APTT D-Dimer High Sensitivty Anion Gap 11 L Estim Creat Clear Calc 99.4 Estimated GFR > 60 POC Glucose 287 H Random Glucose 284 H Estimat Average Glucose Hemoglobin A1c % Calcium 8.6 Total Bilirubin AST ALT Alkaline Phosphatase Troponin I High Sens Total Protein Albumin Lipase TSH Urine Color Urine Appearance Urine pH Ur Specific [place] Urine Protein Urine Glucose (UA) Urine Ketones Urine Blood Urine Nitrite Ur Leukocyte Esterase Urine RBC Urine WBC Ur Squamous Epith Cells Urine Bacteria Urine Opiates Screen Urine Fentanyl Screen Ur Barbiturates Screen Ur Phencyclidine Scrn Ur Amphetamines Screen U Benzodiazepines Scrn Urine Cocaine Screen U Marijuana (THC) Screen COVID-19 (FRANC) COVID-19 Clin Com Influenza Type A (FLAKITA) Influenza Type B (FLAKITA) Influenza A & B Note Assessment and Plan (1) New onset atrial flutter: Status: Acute (2) Acute hyperglycemia: Status: Acute (3) Fluid volume depletion: Status: Acute Plan 55-year-old female who came with palpitation and generalized weakness, diabetic and hypertensive but not compliance with medication-getting admitted for a flutter and uncontrolled diabetes. 1. Atrial flutter Patient had palpitations Started on Cardizem drip right now heart rate is around 100-120 range Patient's symptoms are improving tropsx2 neg ,TSH normal, D-dimer negative Monitor on tele Continue Cardizem drip [facility] 2. Uncontrolled diabetes:? Probably related to diet and medication noncompliance Responded well to insulin Continue hydration, fingerstick with sliding scale coverage, added hemoglobin A1c 11.7. continue lanrus ,added back home metformin , sliding scale coverage. dm education will be provided by staff. 3.HLP:? Continue home medication medical reconciliation is still pending. 4. Hypertension:? will add lisinopril and add may add hydrochlorothiazide in am if blood pressure stable. 5. Morbid obesity:? Advised to cut down calories and encouraged for weight loss.? Of note she had a gastric bypass surgery in the past too. 6. GERD: Continue omeprazole. 7. niraj:? Due to uncontrolled diabetes and dehydration,improved with hydration. 8. DVT prophylaxis:? Started on Lovenox. need for inpatient:afib , uncontrolled dm Quality Stroke Does the patient have a stroke diagnosis?: No VTE Prior VTE?: No VTE Risk Level:: Medical - moderate - high VTE Device Contraindication: N/A - Device Ordered VTE Drug Contraindication: N/A - Med Ordered
--- NOTE | 2021-10-23 08:17 | MHC.CM.PN ---
CM met with Patient at bedside and with the help of [place] interpretation, CM addressed IMM with Patient, providing her with the original and placing a copy on the chart. Patient lives in an apartment with her Daughter/Caregiver and home no services is the goal for dc. CM has initiated and will follow for dc planning.Patient's Son/[employer] is the HCP. Patient has received Moderna/Covid vax X3 and PCP is Dr. Cynthia Carson.
[2021-10-23] MEDS: Insulin Lispro 100 UNIT/ML 3 ML VIAL SUBCUT ×4 (08:30→22:07)
[2021-10-23] MEDS: Insulin Glargine,Hum.rec.anlog 100 UNIT/ML 10 ML VIAL SUBCUT (08:31)
[2021-10-23] MEDS: 0.9 % Sodium Chloride Flush 3 ML SYRINGE IVFLUSH ×2 (08:31→15:39)
[2021-10-23] MEDS: Ferrous Sulfate 324 MG TABLET.DR PO ×3 (08:31→22:08)
[2021-10-23] MEDS: Cholecalciferol (Vitamin D3) 25 MCG TABLET 50 MCG PO (08:32)
[2021-10-23] MEDS: metFORMIN HCl ER 500 MG TAB.ER.24H 1000 MG PO ×2 (08:32→22:07)
[2021-10-23] MEDS: Multivitamin TABLET 1 TAB PO (08:32)
[2021-10-23] MEDS: Aspirin Enteric Coated 81 MG TABLET.DR PO (08:32)
[2021-10-23] MEDS: FLUoxetine HCl 20 MG CAPSULE 60 MG PO (08:32)
[2021-10-23 10:56] VITALS: BP 128/69; PULSE 78; RESP 18; TEMP 36.3; O2SAT 97
[2021-10-23 11:05] LABS: Glucose, Whole Blood 288 mg/dL (60-115)
--- NOTE | 2021-10-23 14:07 | PM.CNCAR ---
History of Present Illness History of Present Illness Date of Service: 10/23/21 Requesting physician: Jessica Sandra Consult reason: atrial fibrillation Chief complaint: afib uncontrolled dm Narrative: I was requested to see [facility] cardiology consultation today for new onset atrial fibrillation. She is a 55-year-old female a prior history of hypertension, diabetes, obesity status post gastric bypass surgery 6 years ago and has regained weight, no history of obstructive sleep apnea, prior history of anemia requiring blood transfusion as per her. History was obtained with help of geophysical laboratory chief red bedside. Patient came to the hospital yesterday as she was at home and suddenly developed symptoms of palpitations with rapid heart rate associated with lightheadedness and shortness of breath. She had no associated chest pain. The symptoms did not subside and she decided come to the emergency room after talking to primary care physician office. In the emergency room she was noted to be in atrial fibrillation rapid ventricular response. She was then started on IV Cardizem drip. Rate is controlled. Symptoms have improved and she does not have much symptoms of palpitation. Denies any chest pain shortness of breath. Her D-dimers in troponins are within normal limits. She is currently on IV Cardizem drip. Yesterday was started on Lovenox drip. Currently feeling okay and is asking about wanting to go home. U tox is negative. Review of Systems Constitutional: Constitutional: Reports no additional constitutional complaints Eyes: Eyes: Reports no additional eye complaints Cardiovascular: Cardiovascular: Denies chest pain, Reports rapid heart rate, Denies leg edema, Reports lightheadedness, Denies Loss of Consciousness, Reports palpitations and Reports dyspnea Respiratory: Respiratory: Reports no additional respiratory complaints and Reports dyspnea Gastrointestinal: Gastrointestinal: Reports no additional gastrointestinal complaints Genitourinary: Genitourinary: Reports no additional female genitourinary complaints Musculoskeletal: Musculoskeletal: Reports no additional musculoskeletal complaints Integumentary/Breasts: Skin/Breast: Reports system reviewed and no additional complaints, except as docu Neurologic: Reports system reviewed and no additional complaints, except as documented Endocrine: Endocrine: Reports no additional endocrine complaints and Reports palpitations PMFSH Past Medical History Medical History Abdominal pain Anemia Arthritis Depression Diabetes GERD (gastroesophageal reflux disease) Hepatitis HTN (hypertension) Hypercholesteremia Lab test negative for COVID-19 virus Surgical History Surgical History Bariatric surgery status Hx of abdominal surgery Hx of section Hx of cholecystectomy Hx of dilation and curettage Hx of excision of mass Hx of gastric bypass Hx of reduction mammoplasty Hx of tubal ligation Social History Social History Household Members: Children Housing: Apartment Do you presently have visiting nurse or other home services: Yes ([employer]) Alcohol intake: never Patient Tobacco Use Status: Never used Tobacco e-Cigarette/Vaping Use: Never Used service: No Current occupational status: disabled Current occupation: rt handed Meds Allergies Allergy/AdvReac Type Severity Reaction Status Date / Time No Known Allergies Allergy Verified 10/22/21 12:04 [No Known Allergies*] Active Medications: Current Medications Acetaminophen (Acetaminophen 325 Mg Tablet) 650 mg PO Q8H PRN PRN Reason: fever Last Admin: 10/23/21 05:43 Dose: 650 mg Documented by: Aspirin (Aspirin Enteric Coated 81 Mg Tablet.) 81 mg PO DAILY [facility] Last Admin: 10/23/21 08:32 Dose: 81 mg Documented by: Atorvastatin Calcium (Atorvastatin Calcium 80 Mg Tablet) 80 mg PO BEDTIME [facility] Last Admin: 10/22/21 20:32 Dose: 80 mg Documented by: Baclofen (Baclofen 10 Mg Tablet) 10 mg PO TID PRN PRN Reason: Spasms Dextrose (Dextrose 50 % 25 Gm/50 Ml Syringe) 25 gm IVPUSH Q15M PRN; Protocol PRN Reason: per Hypoglycemia Standing Ord. Docusate Sodium (Docusate Sodium 100 Mg Capsule) 100 mg PO BID PRN PRN Reason: Constipation Ferrous Sulfate (Ferrous Sulfate 324 Mg Tablet.) 324 mg PO TID [facility] Last Admin: 10/23/21 08:31 Dose: 324 mg Documented by: Fluoxetine HCl (Fluoxetine Hcl 20 Mg Capsule) 60 mg PO DAILY [facility] Last Admin: 10/23/21 08:32 Dose: 60 mg Documented by: Fluticasone Propionate (Fluticasone Propionate Nasal 16 Gm [place]) 1 - 2 spray NOSTRIL-B DAILY PRN PRN Reason: Allergy Symptoms Glucose (Glucose Gel 15 Gm Gel..Gram.) 15 gm PO Q15M PRN; Protocol PRN Reason: per Hypoglycemia Standing Ord. Diltiazem HCl 125 mg/ Sodium (Chloride) 125 mls @ 0 mls/hr IVCONT .Q0M [facility]; Protocol Last Titration: 10/23/21 12:03 Dose: 5 mg/hr, 5 mls/hr Documented by: Insulin Glargine (Insulin Glargine,Hum.Rec.Anlog 100 Unit/Ml 10 Ml Vial) 5 unit SUBCUT DAILY [facility] Last Admin: 10/23/21 08:31 Dose: 5 unit Documented by: Insulin Human Lispro (Insulin Lispro 100 Unit/Ml 3 Ml Vial) 0 unit SUBCUT QIDACHS [facility]; Protocol Last Admin: 10/23/21 12:00 Dose: 6 unit Documented by: Metformin HCl (Metformin Hcl Er 500 Mg Tab.Er.24h) 1,000 mg PO BID [facility] Last Admin: 10/23/21 08:32 Dose: 1,000 mg Documented by: Metoprolol Tartrate (Metoprolol Tartrate 25 Mg Tablet) 25 mg PO QID [facility]; Protocol Multivitamins/Vitamin C (Multivitamin Tablet) 1 tab PO DAILY [facility] Last Admin: 10/23/21 08:32 Dose: 1 tab Documented by: Omeprazole (Omeprazole 20 Mg Capsule.Dr) 20 mg PO DAILY@0630 [facility] Last Admin: 10/23/21 05:43 Dose: 20 mg Documented by: Pharmacy Consult (Consult Rx Perform Med Rec) 1 each MISCELLANE ONCE PRN PRN Reason: Consult order Rivaroxaban (Rivaroxaban 20 Mg Tablet) 20 mg PO DAILY@1700 [facility] Senna (Sennosides 8.6 Mg Tablet) 17.2 mg PO BEDTIME PRN PRN Reason: constipation Sodium Chloride (0.9 % Sodium Chloride Flush 3 Ml Syringe) 3 ml IVFLUSH QSHIFT [facility] Last Admin: 10/23/21 08:31 Dose: 3 ml Documented by: Trazodone HCl (Trazodone Hcl 100 Mg Tablet) 200 mg PO BEDTIME PRN PRN Reason: Insomnia Vitamin D (Cholecalciferol (Vitamin D3) 25 Mcg Tablet) 50 mcg PO DAILY [facility] Last Admin: 10/23/21 08:32 Dose: 50 mcg Documented by: Home Medications Medication Instructions Recorded Confirmed Last Taken Type aspirin 81 mg tablet,delayed 81 mg PO DAILY 04/29/20 10/22/21 10/21/21 History release (Aspirin Low Dose) baclofen 10 mg tablet 10 mg PO TID PRN 04/29/20 10/22/21 Unknown History cholecalciferol (vitamin D3) 50 50 mcg PO DAILY 04/29/20 10/22/21 10/21/21 History mcg (2,000 unit) tablet (Vitamin D3) ferrous sulfate 325 mg (65 mg 325 mg PO TID 04/29/20 10/22/21 10/21/21 History iron) tablet hydrochlorothiazide 25 mg tablet 25 mg PO DAILY 04/29/20 10/22/21 10/21/21 History lisinopril 30 mg tablet 30 mg PO DAILY 04/29/20 10/22/21 10/22/21 History multivitamin 1 tab PO DAILY 04/29/20 10/22/21 10/21/21 History omeprazole 20 mg tablet,delayed 20 mg PO DAILY 04/29/20 10/22/21 10/21/21 History release acetaminophen 650 mg 1 tab PO Q8H PRN 10/22/21 10/22/21 Unknown History tablet,extended release atorvastatin 80 mg tablet 1 tab PO BEDTIME 10/22/21 10/22/21 10/21/21 History docusate sodium 100 mg capsule 1 cap PO BID PRN 10/22/21 10/22/21 Unknown History fluoxetine 20 mg capsule 3 cap PO DAILY 10/22/21 10/22/21 10/21/21 History fluticasone propionate 50 1 - 2 spray INTRANASAL DAILY PRN 10/22/21 10/22/21 Unknown History mcg/actuation nasal spray,suspension metformin 500 mg tablet,extended 2 tab PO BID 10/22/21 10/22/21 10/22/21 History release 24 hr sennosides 8.6 mg tablet (senna) 2 tab PO BEDTIME PRN 10/22/21 10/22/21 Unknown History trazodone 100 mg tablet 2 tab PO BEDTIME PRN 10/22/21 10/22/21 Unknown History Physical Exam Vital Signs: Vital Signs: Last Vital Signs Temp 97.4 F 10/23/21 10:56 Pulse 78 10/23/21 10:56 Resp 18 10/23/21 10:56 BP 128/69 10/23/21 10:56 Pulse Ox 97 10/23/21 10:56 BMI result Body Mass Index 44.6 Const: General: cooperative, comfortable, no acute distress, alert and awake Nutritional Appearance: obese Orientation/consciousness: patient oriented x3 HEENT: Head: Yes normocephalic and Yes atraumatic Neck: Neck: Yes trachea midline, Yes supple and Yes no JVD Chest: Chest palpation & inspection: normal inspection of the chest Resp: Effort & Inspection: normal respiratory effort Auscultation: clear to auscultation bilaterally Cardio: Jugular venous distension: no JVD Palpation: normal PMI Rhythm: abnormal rhythm irregularly irregular Heart sounds: S1 normal heart sound present, S2 normal heart sound present, no click, no gallops, no murmurs and no rubs GI: Inspection: Yes obesity Auscultation: normal bowel sounds Skin: General skin exam: no rashes or lesions noted Neuro: General: patient oriented x3 and no focal motor deficits Extrem: General: Yes no clubbing, cyanosis or edema Psych: Appearance: grossly normal Objective Labs and Meds Result diagrams: 10/23/21 06:06 10/23/21 06:06 Lab results: Laboratory Results - last 24 hr 10/22/21 10/22/21 10/22/21 12:08 14:03 14:22 WBC RBC Hgb Hct MCV MCH MCHC RDW Plt Count MPV Absolute Nucleated RBC Nucleated RBC % (auto) Sodium Potassium Chloride Carbon Dioxide Anion Gap BUN Creatinine Estim Creat Clear Calc Estimated GFR POC Glucose 329 H Random Glucose Estimat Average Glucose 289 Hemoglobin A1c % 11.7 Calcium Troponin I High Sens Urine Color YELLOW Urine Appearance CLEAR Urine pH 6.5 Ur Specific [place] 1.015 Urine Protein NEG Urine Glucose (UA) >=1000 H Urine Ketones NEG Urine Blood TRACE Urine Nitrite NEG Ur Leukocyte Esterase NEG Urine RBC 1-4 Urine WBC 0 Ur Squamous Epith Cells 3+ Urine Bacteria 2+ Urine Opiates Screen Urine Fentanyl Screen Ur Barbiturates Screen Ur Phencyclidine Scrn Ur Amphetamines Screen U Benzodiazepines Scrn Urine Cocaine Screen U Marijuana (THC) Screen 10/22/21 10/22/21 10/22/21 14:22 15:18 17:22 WBC RBC Hgb Hct MCV MCH MCHC RDW Plt Count MPV Absolute Nucleated RBC Nucleated RBC % (auto) Sodium Potassium Chloride Carbon Dioxide Anion Gap BUN Creatinine Estim Creat Clear Calc Estimated GFR POC Glucose 257 H Random Glucose Estimat Average Glucose Hemoglobin A1c % Calcium Troponin I High Sens 14.2 Urine Color Urine Appearance Urine pH Ur Specific [place] Urine Protein Urine Glucose (UA) Urine Ketones Urine Blood Urine Nitrite Ur Leukocyte Esterase Urine RBC Urine WBC Ur Squamous Epith Cells Urine Bacteria Urine Opiates Screen Not Detected Urine Fentanyl Screen Not Detected Ur Barbiturates Screen Not Detected Ur Phencyclidine Scrn Not Detected Ur Amphetamines Screen Not Detected U Benzodiazepines Scrn Not Detected Urine Cocaine Screen Not Detected U Marijuana (THC) Screen Not Detected 10/22/21 10/23/21 10/23/21 20:27 06:06 06:06 WBC 6.4 RBC 3.69 L Hgb 11.9 L Hct 34.8 L MCV 94.3 MCH 32.2 MCHC 34.2 RDW 12.4 Plt Count 271 D MPV 11.1 Absolute Nucleated RBC 0.000 Nucleated RBC % (auto) 0.0 Sodium 136 Potassium 4.3 Chloride 107 Carbon Dioxide 22 Anion Gap 11 L BUN 16 Creatinine 0.75 Estim Creat Clear Calc 99.4 Estimated GFR > 60 POC Glucose 309 H Random Glucose 284 H Estimat Average Glucose Hemoglobin A1c % Calcium 8.6 Troponin I High Sens Urine Color Urine Appearance Urine pH Ur Specific [place] Urine Protein Urine Glucose (UA) Urine Ketones Urine Blood Urine Nitrite Ur Leukocyte Esterase Urine RBC Urine WBC Ur Squamous Epith Cells Urine Bacteria Urine Opiates Screen Urine Fentanyl Screen Ur Barbiturates Screen Ur Phencyclidine Scrn Ur Amphetamines Screen U Benzodiazepines Scrn Urine Cocaine Screen U Marijuana (THC) Screen 10/23/21 10/23/21 07:35 10:58 WBC RBC Hgb Hct MCV MCH MCHC RDW Plt Count MPV Absolute Nucleated RBC Nucleated RBC % (auto) Sodium Potassium Chloride Carbon Dioxide Anion Gap BUN Creatinine Estim Creat Clear Calc Estimated GFR POC Glucose 287 H 288 H Random Glucose Estimat Average Glucose Hemoglobin A1c % Calcium Troponin I High Sens Urine Color Urine Appearance Urine pH Ur Specific [place] Urine Protein Urine Glucose (UA) Urine Ketones Urine Blood Urine Nitrite Ur Leukocyte Esterase Urine RBC Urine WBC Ur Squamous Epith Cells Urine Bacteria Urine Opiates Screen Urine Fentanyl Screen Ur Barbiturates Screen Ur Phencyclidine Scrn Ur Amphetamines Screen U Benzodiazepines Scrn Urine Cocaine Screen U Marijuana (THC) Screen Assessment and Plan (1) New onset atrial flutter: Status: Acute Symptomatic new onset atrial flutter/fibrillation rapid ventricular response. Currently controlled with IV Cardizem drip. Symptoms appear to be related atrial flutter. There is no evidence of any acute coronary syndrome pulmonary embolism. Continue rate control. Switch to oral metoprolol therapy and gradually taper IV Cardizem drip. Switch to oral anticoagulation with Xarelto. CHADSVASc score of 3. Will require further evaluation with echocardiogram as well as most likely require sleep study as an outpatient. Will also require ischemic workup as an outpatient. Out of bed to chair today and once heart rate is better controlled can be discharged home. Eventually will probably pursue rhythm control approach with this was discussed with her with help of geophysical laboratory chief. Please provided with atrial fibrillation education material in [place]. Will continue to follow with a Procedures Date of Service Date of Service: 10/23/21
[2021-10-23] MEDS: Metoprolol Tartrate 25 MG TABLET PO ×3 (15:35→22:45)
[2021-10-23 15:43] VITALS: BP 139/86; PULSE 74; RESP 18; TEMP 37.1; O2SAT 98
[2021-10-23 15:44] LABS: Glucose, Whole Blood 278 mg/dL (60-115)
[2021-10-23] MEDS: Rivaroxaban 20 MG TABLET PO (17:38)
[2021-10-23 19:14] VITALS: BP 114/76; PULSE 57; RESP 18; TEMP 36.7; O2SAT 98
[2021-10-23 19:29] LABS: Glucose, Whole Blood 295 mg/dL (60-115)
[2021-10-23] MEDS: Atorvastatin Calcium 80 MG TABLET PO (22:07)
[2021-10-23 23:29] VITALS: BP 180/95; PULSE 58; RESP 18; TEMP 36.8; O2SAT 97
[2021-10-24 04:00] VITALS: BP 163/88; PULSE 58; RESP 17; TEMP 36.9; O2SAT 94
[2021-10-24] MEDS: Omeprazole 20 MG CAPSULE.DR PO (06:40)
[2021-10-24 07:24] LABS: Glucose, Whole Blood 210 mg/dL (60-115)
[2021-10-24] MEDS: Insulin Lispro 100 UNIT/ML 3 ML VIAL SUBCUT ×4 (07:37→21:22)
[2021-10-24] MEDS: Insulin Glargine,Hum.rec.anlog 100 UNIT/ML 10 ML VIAL SUBCUT (07:38)
[2021-10-24 07:39] VITALS: BP 141/98; PULSE 144; RESP 20; TEMP 36.4; O2SAT 98
[2021-10-24] MEDS: Cholecalciferol (Vitamin D3) 25 MCG TABLET 50 MCG PO (07:39)
[2021-10-24] MEDS: 0.9 % Sodium Chloride Flush 3 ML SYRINGE IVFLUSH ×3 (07:39→21:21)
[2021-10-24] MEDS: metFORMIN HCl ER 500 MG TAB.ER.24H 1000 MG PO ×2 (07:40→21:22)
[2021-10-24] MEDS: Aspirin Enteric Coated 81 MG TABLET.DR PO (07:40)
[2021-10-24] MEDS: Metoprolol Tartrate 25 MG TABLET PO (07:40)
[2021-10-24] MEDS: Multivitamin TABLET 1 TAB PO (07:41)
[2021-10-24] MEDS: FLUoxetine HCl 20 MG CAPSULE 60 MG PO (07:41)
[2021-10-24] MEDS: Ferrous Sulfate 324 MG TABLET.DR PO ×3 (07:41→21:22)
--- NOTE | 2021-10-24 08:48 | P.PNIM_ITS ---
Subjective Subjective Date of Service: 10/24/21 Interval History: afib Review of Systems Ventricular rate is still running 110-120range.? Denies any palpitation or chest pain or shortness of breath or fever or chills or cough or phlegm Physical Exam Vital Signs: Vital Signs: Last Vital Signs Temp 97.6 F 10/24/21 07:39 Pulse 144 H 10/24/21 07:39 Resp 20 10/24/21 07:39 BP 141/98 H 10/24/21 07:39 Pulse Ox 98 10/24/21 07:39 BMI result Body Mass Index 44.6 Appearance: Alert.? Oriented X3.? not in distress.? Eyes: Pupils equal, round and reactive to light.? Sclera nonicteric.? ENT: Pharynx normal.? Moist mucous membranes. cvs: irregular rythem, [id number]. res: clear to auscultation ,no rhonchii or wheezing abd: no rebound or guarding ,nt, bs present. ext pulses present , no cyanosis . neuro: axo3 , nonfocal. Objective Data Active Medications Acetaminophen (Acetaminophen 325 Mg Tablet) 650 mg PO Q8H PRN PRN Reason: fever Last Admin: 10/23/21 05:43 Dose: 650 mg Documented by: ANTOIC Aspirin (Aspirin Enteric Coated 81 Mg Tablet.) 81 mg PO DAILY [facility] Last Admin: 10/24/21 07:40 Dose: 81 mg Documented by: DIANA Atorvastatin Calcium (Atorvastatin Calcium 80 Mg Tablet) 80 mg PO BEDTIME [facility] Last Admin: 10/23/21 22:07 Dose: 80 mg Documented by: ADÁN Baclofen (Baclofen 10 Mg Tablet) 10 mg PO TID PRN PRN Reason: Spasms Dextrose (Dextrose 50 % 25 Gm/50 Ml Syringe) 25 gm IVPUSH Q15M PRN; Protocol PRN Reason: per Hypoglycemia Standing Ord. Docusate Sodium (Docusate Sodium 100 Mg Capsule) 100 mg PO BID PRN PRN Reason: Constipation Ferrous Sulfate (Ferrous Sulfate 324 Mg Tablet.) 324 mg PO TID [facility] Last Admin: 10/24/21 07:41 Dose: 324 mg Documented by: DIANA Fluoxetine HCl (Fluoxetine Hcl 20 Mg Capsule) 60 mg PO DAILY [facility] Last Admin: 10/24/21 07:41 Dose: 60 mg Documented by: DIANA Fluticasone Propionate (Fluticasone Propionate Nasal 16 Gm [place]) 1 - 2 spray NOSTRIL-B DAILY PRN PRN Reason: Allergy Symptoms Glucose (Glucose Gel 15 Gm Gel..Gram.) 15 gm PO Q15M PRN; Protocol PRN Reason: per Hypoglycemia Standing Ord. Diltiazem HCl 125 mg/ Sodium (Chloride) 125 mls @ 0 mls/hr IVCONT .Q0M [facility]; Protocol Insulin Glargine (Insulin Glargine,Hum.Rec.Anlog 100 Unit/Ml 10 Ml Vial) 5 unit SUBCUT DAILY [facility] Last Admin: 10/24/21 07:38 Dose: 5 unit Documented by: DIANA Insulin Human Lispro (Insulin Lispro 100 Unit/Ml 3 Ml Vial) 0 unit SUBCUT QIDACHS [facility]; Protocol Last Admin: 10/24/21 07:37 Dose: 4 unit Documented by: DIANA Metformin HCl (Metformin Hcl Er 500 Mg Tab.Er.24h) 1,000 mg PO BID [facility] Last Admin: 10/24/21 07:40 Dose: 1,000 mg Documented by: DIANA Metoprolol Tartrate (Metoprolol Tartrate 25 Mg Tablet) 25 mg PO QID [facility]; Protocol Last Admin: 10/24/21 07:40 Dose: 25 mg Documented by: DIANA Multivitamins/Vitamin C (Multivitamin Tablet) 1 tab PO DAILY [facility] Last Admin: 10/24/21 07:41 Dose: 1 tab Documented by: DIANA Omeprazole (Omeprazole 20 Mg Capsule.) 20 mg PO DAILY@0630 [facility] Last Admin: 10/24/21 06:40 Dose: 20 mg Documented by: ADÁN Pharmacy Consult (Consult Rx Perform Med Rec) 1 each MISCELLANE ONCE PRN PRN Reason: Consult order Rivaroxaban (Rivaroxaban 20 Mg Tablet) 20 mg PO DAILY@1700 [facility] Last Admin: 10/23/21 17:38 Dose: 20 mg Documented by: TANIKA Senna (Sennosides 8.6 Mg Tablet) 17.2 mg PO BEDTIME PRN PRN Reason: constipation Sodium Chloride (0.9 % Sodium Chloride Flush 3 Ml Syringe) 3 ml IVFLUSH QSHIFT [facility] Last Admin: 10/24/21 07:39 Dose: 3 ml Documented by: DIANA Trazodone HCl (Trazodone Hcl 100 Mg Tablet) 200 mg PO BEDTIME PRN PRN Reason: Insomnia Vitamin D (Cholecalciferol (Vitamin D3) 25 Mcg Tablet) 50 mcg PO DAILY [facility] Last Admin: 10/24/21 07:39 Dose: 50 mcg Documented by: DIANA Labs CBC & Chem 7: 10/23/21 06:06 10/24/21 06:35 Labs: Laboratory Results - last 24 hr 10/23/21 10/23/21 10/23/21 10:58 15:40 19:12 POC Glucose 288 H 278 H 295 H 10/24/21 07:20 POC Glucose 210 H Assessment and Plan (1) New onset atrial flutter: Status: Acute (2) Acute hyperglycemia: Status: Acute Plan 55-year-old female who came with palpitation and generalized weakness, diabetic and hypertensive but not compliance with medication-getting admitted for a flutter and uncontrolled diabetes. 1. Atrial flutter-still hr in 140's Patient had palpitations Patient's symptoms are improving tropsx2 neg ,TSH normal, D-dimer negative Monitor on tele start back Michellejethro nish [place] Vasc score is 3-on? Lovenox Cardiology followup and echo 2. Uncontrolled diabetes:? Probably related to diet and medication noncompliance, fs 200's range but improving Responded well to insulin Continue hydration, fingerstick with sliding scale coverage, added hemoglobin A1c 11.7. continue lanrus ,added back home metformin , sliding scale coverage. dm education will be provided by staff. 3.HLP:? Continue home medication medical reconciliation is still pending. 4. Hypertension:? will add lisinopril and add may add? hydrochlorothiazide in am if blood pressure stable. 5. Morbid obesity:? Advised to cut down calories and encouraged for weight loss.? Of note she had a gastric bypass surgery in the past too. 6. GERD: Continue omeprazole. 7. niraj:? Due to uncontrolled diabetes and dehydration,improved with? hydration. 8. DVT prophylaxis:? Started on Lovenox. need for inpatient:afib , uncontrolled dm Quality Stroke Does the patient have a stroke diagnosis?: No VTE Prior VTE?: No VTE Risk Level:: Medical - moderate - high VTE Device Contraindication: N/A - Device Ordered VTE Drug Contraindication: N/A - Med Ordered
[2021-10-24 09:06] LABS: Anion Gap 10 (12-20); Blood Urea Nitrogen 11 mg/dL (9-16); Carbon Dioxide 25 mmol/L (22-29); Chloride 107 mmol/L (96-108); Creatinine Clr Calc Pharmacy 90.9; Estimated Glomerular Filt Rate > 60; Glucose Random 199 mg/dL (60-115); Potassium 4.3 mmol/L (3.3-5.1); Sodium 138 mmol/L (135-145)
[2021-10-24] MEDS: dilTIAZem HCL 125 MG in 0.9 % Sodium Chloride 100 ML 10 MG IVCONT (09:39)
[2021-10-24 09:47] LABS: Calcium 9.2 mg/dL (8.4-10.2)
[2021-10-24 11:44] LABS: Glucose, Whole Blood 224 mg/dL (60-115)
[2021-10-24 12:00] VITALS: BP 147/79; PULSE 94; RESP 20; TEMP 36.5; O2SAT 98
--- NOTE | 2021-10-24 12:56 | P.PNCA_ITS ---
Subjective Subjective Date of Service: 10/24/21 Principal diagnosis: Atrial flutter with rapid ventricular response Interval history: Patient again this morning developed rapid heart rate and was started on IV Cardizem drip. After IV Cardizem drip the rate is better controlled. She has symptoms of palpitations. She was started on metoprolol yesterday with not adequate rate control. Review of Systems Constitutional: Reports no additional constitutional complaints Cardiovascular: Denies chest pain, Denies lightheadedness and Reports palpitations Respiratory: Reports no additional respiratory complaints Gastrointestinal: Reports no additional gastrointestinal complaints Genitourinary: Reports no additional female genitourinary complaints Musculoskeletal: Reports no additional musculoskeletal complaints Skin/Breast: Reports system reviewed and no additional complaints, except as docu Reports system reviewed and no additional complaints, except as documented Psychiatric: Reports no additional psychiatric complaints Endocrine: Reports palpitations Physical Exam Vital Signs: Last Vital Signs Temp 97.7 F 10/24/21 12:00 Pulse 94 10/24/21 12:00 Resp 20 10/24/21 12:00 BP 147/79 H 10/24/21 12:00 Pulse Ox 98 10/24/21 12:00 BMI result Body Mass Index 44.6 Const General: cooperative, comfortable, no acute distress, alert and awake Nutritional Appearance: obese Orientation/consciousness: patient oriented x3 Neck Neck: Yes trachea midline, Yes supple and Yes no JVD Resp Effort & Inspection: normal respiratory effort Auscultation: clear to auscultation bilaterally Cardio Jugular venous distension: no JVD Rate: tachycardic Rhythm: abnormal rhythm irregularly irregular GI Auscultation: normal bowel sounds Skin General skin exam: no rashes or lesions noted Neuro General: patient oriented x3 Extrem General: Yes no clubbing, cyanosis or edema Objective Labs and Meds Result diagrams: 10/23/21 06:06 10/24/21 06:35 Lab results: Laboratory Results - last 24 hr 10/23/21 10/23/21 10/24/21 15:40 19:12 06:35 Sodium 138 Potassium 4.3 Chloride 107 Carbon Dioxide 25 Anion Gap 10 L BUN 11 Creatinine 0.82 Estim Creat Clear Calc 90.9 Estimated GFR > 60 POC Glucose 278 H 295 H Random Glucose 199 H Calcium 9.2 D 10/24/21 10/24/21 07:20 10:55 Sodium Potassium Chloride Carbon Dioxide Anion Gap BUN Creatinine Estim Creat Clear Calc Estimated GFR POC Glucose 210 H 224 H Random Glucose Calcium Progress Note: A&P Assessment and plan (1) New onset atrial flutter: Status: Acute Assessment and Plan: Persistent and difficult to rate control atrial flutter. Will further maximize metoprolol to 50 mg q.6 and give couple of dose of digoxin IV. Continue to start to taper Cardizem drip after increasing medications. Her rate remains difficult control, will require FELIX guided cardioversion. Discussed with her the need for FELIX as well as cardioversion the rate is at not adequately controlled is agreeable. She does have prior gastric bypass surgery but has no swallowing issues currently. Would avoid gastric intubation. Continue full oral anticoagulation with Xarelto. We also discussed the need for cardioversion and she says if she needs that she is agreeable to it as well. 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 Please keep her NPO after midnight Will continue to follow with you Fall Risk Details Current Medications: Current Medications Acetaminophen (Acetaminophen 325 Mg Tablet) 650 mg PO Q8H PRN PRN Reason: fever Last Admin: 10/23/21 05:43 Dose: 650 mg Documented by: Aspirin (Aspirin Enteric Coated 81 Mg Tablet.) 81 mg PO DAILY [facility] Last Admin: 10/24/21 07:40 Dose: 81 mg Documented by: Atorvastatin Calcium (Atorvastatin Calcium 80 Mg Tablet) 80 mg PO BEDTIME [facility] Last Admin: 10/23/21 22:07 Dose: 80 mg Documented by: Baclofen (Baclofen 10 Mg Tablet) 10 mg PO TID PRN PRN Reason: Spasms Dextrose (Dextrose 50 % 25 Gm/50 Ml Syringe) 25 gm IVPUSH Q15M PRN; Protocol PRN Reason: per Hypoglycemia Standing Ord. Digoxin (Digoxin 0.5 Mg/2 Ml Ampul) 0.25 mg IVPUSH Q6H [facility] Stop: 10/24/21 18:01 Docusate Sodium (Docusate Sodium 100 Mg Capsule) 100 mg PO BID PRN PRN Reason: Constipation Ferrous Sulfate (Ferrous Sulfate 324 Mg Tablet.) 324 mg PO TID [facility] Last Admin: 10/24/21 07:41 Dose: 324 mg Documented by: Fluoxetine HCl (Fluoxetine Hcl 20 Mg Capsule) 60 mg PO DAILY [facility] Last Admin: 10/24/21 07:41 Dose: 60 mg Documented by: Fluticasone Propionate (Fluticasone Propionate Nasal 16 Gm [place]) 1 - 2 spray NOSTRIL-B DAILY PRN PRN Reason: Allergy Symptoms Glucose (Glucose Gel 15 Gm Gel..Gram.) 15 gm PO Q15M PRN; Protocol PRN Reason: per Hypoglycemia Standing Ord. Insulin Glargine (Insulin Glargine,Hum.Rec.Anlog 100 Unit/Ml 10 Ml Vial) 5 unit SUBCUT DAILY [facility] Last Admin: 10/24/21 07:38 Dose: 5 unit Documented by: Insulin Human Lispro (Insulin Lispro 100 Unit/Ml 3 Ml Vial) 0 unit SUBCUT QIDACHS [facility]; Protocol Last Admin: 10/24/21 11:35 Dose: 4 unit Documented by: Metformin HCl (Metformin Hcl Er 500 Mg Tab.Er.24h) 1,000 mg PO BID [facility] Last Admin: 10/24/21 07:40 Dose: 1,000 mg Documented by: Metoprolol Tartrate (Metoprolol Tartrate 50 Mg Tablet) 50 mg PO Q6H [facility]; Protocol Multivitamins/Vitamin C (Multivitamin Tablet) 1 tab PO DAILY [facility] Last Admin: 10/24/21 07:41 Dose: 1 tab Documented by: Omeprazole (Omeprazole 20 Mg Capsule.Dr) 20 mg PO DAILY@0630 [facility] Last Admin: 10/24/21 06:40 Dose: 20 mg Documented by: Pharmacy Consult (Consult Rx Perform Med Rec) 1 each MISCELLANE ONCE PRN PRN Reason: Consult order Rivaroxaban (Rivaroxaban 20 Mg Tablet) 20 mg PO DAILY@1700 [facility] Last Admin: 10/23/21 17:38 Dose: 20 mg Documented by: Senna (Sennosides 8.6 Mg Tablet) 17.2 mg PO BEDTIME PRN PRN Reason: constipation Sodium Chloride (0.9 % Sodium Chloride Flush 3 Ml Syringe) 3 ml IVFLUSH QSHIFT [facility] Last Admin: 10/24/21 07:39 Dose: 3 ml Documented by: Trazodone HCl (Trazodone Hcl 100 Mg Tablet) 200 mg PO BEDTIME PRN PRN Reason: Insomnia Vitamin D (Cholecalciferol (Vitamin D3) 25 Mcg Tablet) 50 mcg PO DAILY [facility] Last Admin: 10/24/21 07:39 Dose: 50 mcg Documented by: Time Spent With Patient Time: Total time spent is greater than 50% in coordination of care (as documented) at patient's floor/unit and/or counseling patient: Progress Note: Quality Stroke Does the patient have a stroke diagnosis?: No Procedures Date of Service Date of Service: 10/24/21
[2021-10-24] MEDS: Digoxin 0.5 MG/2 ML AMPUL 0.25 MG IVPUSH ×2 (13:10→17:53)
[2021-10-24] MEDS: Metoprolol Tartrate 50 MG TABLET PO ×2 (13:11→17:53)
[2021-10-24 15:40] VITALS: BP 139/89; PULSE 76; RESP 18; TEMP 37.1; O2SAT 98
[2021-10-24 15:49] LABS: Glucose, Whole Blood 262 mg/dL (60-115)
[2021-10-24] MEDS: Rivaroxaban 20 MG TABLET PO (16:42)
[2021-10-24 19:47] VITALS: BP 142/85; PULSE 77; RESP 18; TEMP 37.1; O2SAT 97
[2021-10-24 19:52] LABS: Glucose, Whole Blood 215 mg/dL (60-115)
[2021-10-24] MEDS: Atorvastatin Calcium 80 MG TABLET PO (21:22)
[2021-10-24 23:23] VITALS: BP 168/73; PULSE 78; RESP 16; TEMP 36.9; O2SAT 98
[2021-10-25] VITALS (7 sets, daily range): BP systolic 131–165; BP diastolic 79–94; PULSE 62–82; RESP 17–20; TEMP 36.6–36.8; O2SAT 96–100
[2021-10-25] MEDS: Metoprolol Tartrate 50 MG TABLET PO ×4 (00:21→17:00)
[2021-10-25] MEDS: Omeprazole 20 MG CAPSULE.DR PO (05:54)
[2021-10-25 06:24] LABS: Anion Gap 12 (12-20); Blood Urea Nitrogen 13 mg/dL (9-16); Calcium 9.2 mg/dL (8.4-10.2); Carbon Dioxide 25 mmol/L (22-29); Chloride 106 mmol/L (96-108); Estimated Glomerular Filt Rate > 60; Glucose Random 182 mg/dL (60-115); Potassium 4.1 mmol/L (3.3-5.1); Sodium 139 mmol/L (135-145)
[2021-10-25 07:22] LABS: Glucose, Whole Blood 191 mg/dL (60-115)
--- NOTE | 2021-10-25 07:30 | CA_ITS ---
Transthoracic Echocardiogram Patient (Last, First, Middle): Ashley Pavon, Gender: Female Date of : 1965 Age: 55 Procedure Date: 10/25/2021 Procedure Type: Transthoracic Echocardiogram [place] [facility] [place]: 157.48 cm Weight: 110.22 kg BSA: 2.08 m2 Heart Rate: bpm BP: 160 / 79 mmHg Grievance And Appeals Specialist: MICHAEL Gonzalez MD: Jessica Sandra MD Symptoms: aflutter Study Quality: Fair ECG Rhythm: Atrial flutter Conclusions: - The left ventricular systolic function is mildly decreased. The visually estimated ejection fraction is between 40-45%. - No obvious valvular pathology seen on this study. Findings Left Ventricle Normal left ventricular cavity size. There is mildly increased left ventricular wall thickness. The left ventricular systolic function is mildly decreased. The visually estimated ejection fraction is between 40-45%. Diastolic function is indeterminate on the basis of available data. Right Ventricle Normal right ventricular cavity size and systolic function. Atria Both atria are normal in size. Aortic Valve There is a normal trileaflet aortic valve. There is no aortic valve stenosis. There is no aortic valve regurgitation. Mitral Valve The mitral valve appears normal. There is mild mitral annular calcification. There is trace mitral valve regurgitation. There is no mitral valve stenosis. Pulmonic Valve The pulmonic valve is likely normal. Tricuspid Valve Normal tricuspid valve structure. There is trace tricuspid valve regurgitation. The pulmonary artery systolic pressure is normal. Great Vessels The asc aorta and aortic arch are normal in size. Venous The inferior vena cava is normal in size and collapses greater than 50% with inspiration. There is evidence of a dilated coronary sinus. Pericardium/Pleural There is no evidence of pericardial effusion. Prior Study Comparison Changes noted compared to prior study dated: 06/18/2018. Decrease in LVEF. Recommendations, Care & Conclusions No obvious valvular pathology seen on this study. Measurements 2D Linear Measurements IVSd: 1.06 0.6-0.9/0.6-1.0 cm LVIDd: 4.84 3.9-5.3/4.2-5.9 cm LVIDd Index: 2.33 2.4-3.2/2.2-3.1 cm/m2 LVIDs: 3.80 2.0-3.6 cm LVPWd: 1.02 0.7-1.1 cm LA Diam: 3.20 2.7-3.8/3.0-4.0 cm LAIDs Index: 1.54 1.5-2.3 cm/m2 LV Mass: 226.71 67-162/88-224 g LV Mass Index: 109.00 43-95/49-115 g/m2 LVOT Diam: 2.00 3.0+(-)1.3 cm 2D Systolic Function EF 4C: 45.10 >55% EF 2C: 48.80 >55% EF BiP: 46.90 >55% Aortic Valve AoV Pk [place]: 1.36 AoV Mn [place]: 0.96 AoV VTI: 0.21 AoV Pk Grad: 7.00 Aov Mn Grad: 4.00 [place] Cont.VTI: 2.17 LVOT LVOT Pk [place]: 0.82 LVOT Mn [place]: 0.55 LVOT VTI: 0.14 LVOT Pk Grad: 3.00 LVOT Mn Grad: 1.00 LVOT Diam: 2.00 LVOT Area: 3.14 Right Ventricle TAPSE (mm): 19.40 TVS' [place]: 14.10 Tricuspid Valve TR Pk [place]: 1.66 TR Pk Grad: 11.00 RA Press: 8.00 RVSP: 19.00 Great Vessels Aorta Sinus of Valsalva: 3.04 2.0-3.[address] [place]: 2.74 1.7-3.4 cm Ao Asc: 3.20 2.1-3.4 cm Ao Arch: 2.80 Updated in Other Vendor System with Status of Final Gibran Pappas MD electronically signed on 10/25/2021 4:42:12 PM with status of Final
[2021-10-25] MEDS: FLUoxetine HCl 20 MG CAPSULE 60 MG PO (08:17)
[2021-10-25] MEDS: 0.9 % Sodium Chloride Flush 3 ML SYRINGE IVFLUSH ×3 (08:17→20:06)
[2021-10-25] MEDS: Multivitamin TABLET 1 TAB PO (08:17)
[2021-10-25] MEDS: Acetaminophen 325 MG TABLET 650 MG PO (08:17)
[2021-10-25] MEDS: Ferrous Sulfate 324 MG TABLET.DR PO ×3 (08:17→20:06)
[2021-10-25] MEDS: Aspirin Enteric Coated 81 MG TABLET.DR PO (08:17)
[2021-10-25] MEDS: Cholecalciferol (Vitamin D3) 25 MCG TABLET 50 MCG PO (08:17)
--- NOTE | 2021-10-25 10:19 | PM.PNCARD ---
Subjective Subjective Date of Service: 10/25/21 Principal diagnosis: Atrial flutter with rapid ventricular response Interval history: She states that she is doing good. No specific complaints. No angina or shortness of breath or palpitations or in fact any cardiac symptoms at this time. Review of Systems Review of Systems Yes all other systems are reviewed and are negative Constitutional: Reports as per HPI Eyes: Reports as per HPI Reports as per HPI Cardiovascular: Reports as per HPI, Denies acrocyanosis, Denies cool extremities, Denies chest pain, Denies leg edema, Denies lightheadedness, Denies palpitations and Denies dyspnea Respiratory: Reports as per HPI, Reports no additional respiratory complaints and Denies dyspnea Gastrointestinal: Reports as per HPI and Reports no additional gastrointestinal complaints Genitourinary: Reports as per HPI Musculoskeletal: Reports no additional musculoskeletal complaints and Reports as per HPI Skin/Breast: Reports system reviewed and no additional complaints, except as docu Reports system reviewed and no additional complaints, except as documented and Reports as per HPI Psychiatric: Reports no additional psychiatric complaints and Reports as per HPI Endocrine: Reports no additional endocrine complaints, Reports as per HPI and Denies palpitations Hematologic/Lymphatic: Reports no additional hematologic/lymphatic complaints and Reports as per HPI Allergic/Immunologic: Reports no additional allergic/immunologic complaints and Reports as per HPI Physical Exam Vital Signs: Last Vital Signs Temp 98.2 F 10/25/21 08:00 Pulse 62 10/25/21 08:00 Resp 20 10/25/21 08:00 BP 165/86 H 10/25/21 08:00 Pulse Ox 98 10/25/21 08:00 BMI result Body Mass Index 44.6 Const General: comfortable and no acute distress Orientation/consciousness: patient oriented x3 HEENT Other: Unremarkable Head: Yes normal to inspection Neck Neck: Yes normal visual inspection Chest Chest palpation & inspection: normal inspection of the chest Resp Auscultation: clear to auscultation bilaterally Cardio Palpation: normal PMI Heart sounds: S1 normal heart sound present, S2 normal heart sound present, no gallops, no murmurs and no rubs GI Palpation (GI): Soft to palpation Back/Spine/Pelvis Other: unremarkable Skin General skin exam: no rashes or lesions noted Neuro General: patient oriented x3 Extrem General: Yes normal to inspection Psych Mental Status: mental status grossly normal Objective Labs and Meds Result diagrams: 10/23/21 06:06 10/25/21 06:01 Lab results: Laboratory Results - last 24 hr 10/24/21 10/24/21 10/24/21 10:55 15:44 19:44 Sodium Potassium Chloride Carbon Dioxide Anion Gap BUN Creatinine Estim Creat Clear Calc Estimated GFR POC Glucose 224 H 262 H 215 H Random Glucose Calcium 10/25/21 10/25/21 06:01 07:11 Sodium 139 Potassium 4.1 Chloride 106 Carbon Dioxide 25 Anion Gap 12 BUN 13 Creatinine 0.81 Estim Creat Clear Calc 92.0 Estimated GFR > 60 POC Glucose 191 H Random Glucose 182 H Calcium 9.2 Progress Note: A&P Assessment and plan (1) New onset atrial flutter: Status: Acute (2) Essential hypertension: Status: Acute Plan Currently, she is still in atrial flutter but rate seems well controlled as the ventricular rate is only about 80/Min and she has essentially no clinical symptoms this time. Hence will hold off on FELIX/cardioversion at this time. Continue rate control with metoprolol. If necessary, add diltiazem as the blood pressure is also on the higher side. She is on Xarelto. Does not need aspirin too. She did get digoxin loading but not anymore. Will review echocardiogram. Will follow up with you. Fall Risk Details Current Medications: Current Medications Acetaminophen (Acetaminophen 325 Mg Tablet) 650 mg PO Q8H PRN PRN Reason: fever Last Admin: 10/25/21 08:17 Dose: 650 mg Documented by: Aspirin (Aspirin Enteric Coated 81 Mg Tablet.) 81 mg PO DAILY [facility] Last Admin: 10/25/21 08:17 Dose: 81 mg Documented by: Atorvastatin Calcium (Atorvastatin Calcium 80 Mg Tablet) 80 mg PO BEDTIME [facility] Last Admin: 10/24/21 21:22 Dose: 80 mg Documented by: Baclofen (Baclofen 10 Mg Tablet) 10 mg PO TID PRN PRN Reason: Spasms Dextrose (Dextrose 50 % 25 Gm/50 Ml Syringe) 25 gm IVPUSH Q15M PRN; Protocol PRN Reason: per Hypoglycemia Standing Ord. Docusate Sodium (Docusate Sodium 100 Mg Capsule) 100 mg PO BID PRN PRN Reason: Constipation Ferrous Sulfate (Ferrous Sulfate 324 Mg Tablet.) 324 mg PO TID [facility] Last Admin: 10/25/21 08:17 Dose: 324 mg Documented by: Fluoxetine HCl (Fluoxetine Hcl 20 Mg Capsule) 60 mg PO DAILY [facility] Last Admin: 10/25/21 08:17 Dose: 60 mg Documented by: Fluticasone Propionate (Fluticasone Propionate Nasal 16 Gm [place]) 1 - 2 spray NOSTRIL-B DAILY PRN PRN Reason: Allergy Symptoms Glucose (Glucose Gel 15 Gm Gel..Gram.) 15 gm PO Q15M PRN; Protocol PRN Reason: per Hypoglycemia Standing Ord. Insulin Glargine (Insulin Glargine,Hum.Rec.Anlog 100 Unit/Ml 10 Ml Vial) 5 unit SUBCUT DAILY [facility] Last Admin: 10/25/21 08:18 Dose: Not Given Documented by: Insulin Human Lispro (Insulin Lispro 100 Unit/Ml 3 Ml Vial) 0 unit SUBCUT QIDACHS [facility]; Protocol Last Admin: 10/25/21 07:57 Dose: Not Given Documented by: Metformin HCl (Metformin Hcl Er 500 Mg Tab.Er.24h) 1,000 mg PO BID [facility] Last Admin: 10/25/21 08:23 Dose: Not Given Documented by: Metoprolol Tartrate (Metoprolol Tartrate 50 Mg Tablet) 50 mg PO Q6H [facility]; Protocol Last Admin: 10/25/21 05:54 Dose: 50 mg Documented by: Multivitamins/Vitamin C (Multivitamin Tablet) 1 tab PO DAILY [facility] Last Admin: 10/25/21 08:17 Dose: 1 tab Documented by: Omeprazole (Omeprazole 20 Mg Capsule.Dr) 20 mg PO DAILY@0630 [facility] Last Admin: 10/25/21 05:54 Dose: 20 mg Documented by: Pharmacy Consult (Consult Rx Perform Med Rec) 1 each MISCELLANE ONCE PRN PRN Reason: Consult order Rivaroxaban (Rivaroxaban 20 Mg Tablet) 20 mg PO DAILY@1700 [facility] Last Admin: 10/24/21 16:42 Dose: 20 mg Documented by: Senna (Sennosides 8.6 Mg Tablet) 17.2 mg PO BEDTIME PRN PRN Reason: constipation Sodium Chloride (0.9 % Sodium Chloride Flush 3 Ml Syringe) 3 ml IVFLUSH QSHIFT [facility] Last Admin: 10/25/21 08:17 Dose: 3 ml Documented by: Trazodone HCl (Trazodone Hcl 100 Mg Tablet) 200 mg PO BEDTIME PRN PRN Reason: Insomnia Vitamin D (Cholecalciferol (Vitamin D3) 25 Mcg Tablet) 50 mcg PO DAILY [facility] Last Admin: 10/25/21 08:17 Dose: 50 mcg Documented by: Time Spent With Patient Time: Total time spent is greater than 50% in coordination of care (as documented) at patient's floor/unit and/or counseling patient: 40 Progress Note: Quality Stroke Does the patient have a stroke diagnosis?: No Procedures Date of Service Date of Service: 10/25/21
[2021-10-25 11:15] LABS: Glucose, Whole Blood 252 mg/dL (60-115)
[2021-10-25] MEDS: Insulin Lispro 100 UNIT/ML 3 ML VIAL SUBCUT ×3 (12:11→20:06)
--- NOTE | 2021-10-25 13:17 | P.PNIM_ITS ---
Subjective Subjective Date of Service: 10/25/21 Interval History: afib Review of Systems Ventricular rate improving to 80's Denies any palpitation or chest pain or shortness of breath or fever or chills or cough or phlegm Physical Exam Vital Signs: Vital Signs: Last Vital Signs Temp 98.2 F 10/25/21 10:58 Pulse 78 10/25/21 10:58 Resp 20 10/25/21 10:58 BP 150/82 H 10/25/21 10:58 Pulse Ox 98 10/25/21 10:58 BMI result Body Mass Index 44.6 Appearance: Alert.? Oriented X3.? not in distress.? cvs: irregular rythem, [id number]. res: clear to auscultation ,no rhonchii or wheezing abd: no rebound or guarding ,nt, bs present. ext pulses present , no cyanosis . neuro: axo3 , nonfocal. Objective Data Active Medications Acetaminophen (Acetaminophen 325 Mg Tablet) 650 mg PO Q8H PRN PRN Reason: fever Last Admin: 10/25/21 08:17 Dose: 650 mg Documented by: AMANDA Aspirin (Aspirin Enteric Coated 81 Mg Tablet.) 81 mg PO DAILY [facility] Last Admin: 10/25/21 08:17 Dose: 81 mg Documented by: AMANDA Atorvastatin Calcium (Atorvastatin Calcium 80 Mg Tablet) 80 mg PO BEDTIME [facility] Last Admin: 10/24/21 21:22 Dose: 80 mg Documented by: NAUMOC Baclofen (Baclofen 10 Mg Tablet) 10 mg PO TID PRN PRN Reason: Spasms Dextrose (Dextrose 50 % 25 Gm/50 Ml Syringe) 25 gm IVPUSH Q15M PRN; Protocol PRN Reason: per Hypoglycemia Standing Ord. Docusate Sodium (Docusate Sodium 100 Mg Capsule) 100 mg PO BID PRN PRN Reason: Constipation Ferrous Sulfate (Ferrous Sulfate 324 Mg Tablet.) 324 mg PO TID [facility] Last Admin: 10/25/21 08:17 Dose: 324 mg Documented by: AMANDA Fluoxetine HCl (Fluoxetine Hcl 20 Mg Capsule) 60 mg PO DAILY [facility] Last Admin: 10/25/21 08:17 Dose: 60 mg Documented by: AMANDA Fluticasone Propionate (Fluticasone Propionate Nasal 16 Gm [place]) 1 - 2 spray NOSTRIL-B DAILY PRN PRN Reason: Allergy Symptoms Glucose (Glucose Gel 15 Gm Gel..Gram.) 15 gm PO Q15M PRN; Protocol PRN Reason: per Hypoglycemia Standing Ord. Insulin Glargine (Insulin Glargine,Hum.Rec.Anlog 100 Unit/Ml 10 Ml Vial) 5 unit SUBCUT DAILY [facility] Last Admin: 10/25/21 08:18 Dose: Not Given Documented by: AMANDA Non-Admin Reason: NPO Insulin Human Lispro (Insulin Lispro 100 Unit/Ml 3 Ml Vial) 0 unit SUBCUT QIDACHS [facility]; Protocol Last Admin: 10/25/21 12:11 Dose: 6 unit Documented by: AMANDA Metformin HCl (Metformin Hcl Er 500 Mg Tab.Er.24h) 1,000 mg PO BID [facility] Last Admin: 10/25/21 08:23 Dose: Not Given Documented by: ANDREZEP Non-Admin Reason: NPO Metoprolol Tartrate (Metoprolol Tartrate 50 Mg Tablet) 50 mg PO Q6H [facility]; Protocol Last Admin: 10/25/21 12:13 Dose: 50 mg Documented by: AMANDA Multivitamins/Vitamin C (Multivitamin Tablet) 1 tab PO DAILY [facility] Last Admin: 10/25/21 08:17 Dose: 1 tab Documented by: AMANDA Omeprazole (Omeprazole 20 Mg Capsule.Dr) 20 mg PO DAILY@0630 [facility] Last Admin: 10/25/21 05:54 Dose: 20 mg Documented by: ITA Pharmacy Consult (Consult Rx Perform Med Rec) 1 each MISCELLANE ONCE PRN PRN Reason: Consult order Rivaroxaban (Rivaroxaban 20 Mg Tablet) 20 mg PO DAILY@1700 [facility] Last Admin: 10/24/21 16:42 Dose: 20 mg Documented by: DIANA Senna (Sennosides 8.6 Mg Tablet) 17.2 mg PO BEDTIME PRN PRN Reason: constipation Sodium Chloride (0.9 % Sodium Chloride Flush 3 Ml Syringe) 3 ml IVFLUSH QSHIFT [facility] Last Admin: 10/25/21 12:13 Dose: 3 ml Documented by: AMANDA Trazodone HCl (Trazodone Hcl 100 Mg Tablet) 200 mg PO BEDTIME PRN PRN Reason: Insomnia Vitamin D (Cholecalciferol (Vitamin D3) 25 Mcg Tablet) 50 mcg PO DAILY [facility] Last Admin: 10/25/21 08:17 Dose: 50 mcg Documented by: AMANDA Labs CBC & Chem 7: 10/23/21 06:06 10/25/21 06:01 Labs: Laboratory Results - last 24 hr 10/24/21 10/24/21 10/25/21 15:44 19:44 06:01 Anion Gap 12 Estim Creat Clear Calc 92.0 Estimated GFR > 60 POC Glucose 262 H 215 H Random Glucose 182 H Calcium 9.2 10/25/21 10/25/21 07:11 10:57 Anion Gap Estim Creat Clear Calc Estimated GFR POC Glucose 191 H 252 H Random Glucose Calcium Assessment and Plan (1) Essential hypertension: Status: Acute (2) New onset atrial flutter: Status: Acute Plan 55-year-old female who came with palpitation and generalized weakness, diabetic and hypertensive but not compliance with medication-getting admitted for a flutter and uncontrolled diabetes. 1. Atrial flutter-still hr improvingas well as palpitations Patient's symptoms are improving tropsx2 neg ,TSH normal, D-dimer negative Monitor on tele added echo Darion Vasc score is 3-on? Lovenox Cardiology followup ancontinue metoprolol and add diltiazem. 2. Uncontrolled diabetes:? Probably related to diet and medication noncompliance, fs 200's range but improving Responded well to insulin Continue hydration, fingerstick with sliding scale coverage, added hemoglobin A1c 11.7. adjusted lantus ,added back home metformin , sliding scale coverage. dm education will be provided by staff. 3.HLP:? Continue home medication medical reconciliation is still pending. 4.uncontrolled Hypertension:?added hctzback 5. Morbid obesity:? Advised to cut down calories and encouraged for weight loss.? Of note she had a gastric bypass surgery in the past too. 6. GERD: Continue omeprazole. 7. niraj:? Due to uncontrolled diabetes and dehydration,improved with? hydration. 8. DVT prophylaxis:? Started on Lovenox. need for inpatient:afib -need to moniter since adjusted medication , uncontrolled htn. Quality Stroke Does the patient have a stroke diagnosis?: No VTE Prior VTE?: No VTE Risk Level:: Medical - moderate - high VTE Device Contraindication: N/A - Device Ordered VTE Drug Contraindication: N/A - Med Ordered
[2021-10-25] MEDS: hydroCHLOROthiazide 25 MG TABLET PO (14:44)
[2021-10-25 16:01] LABS: Glucose, Whole Blood 218 mg/dL (60-115)
[2021-10-25] MEDS: Rivaroxaban 20 MG TABLET PO (17:00)
[2021-10-25 19:59] LABS: Glucose, Whole Blood 181 mg/dL (60-115)
[2021-10-25] MEDS: metFORMIN HCl ER 500 MG TAB.ER.24H 1000 MG PO (20:06)
[2021-10-25] MEDS: Atorvastatin Calcium 80 MG TABLET PO (20:06)
[2021-10-26] MEDS: Metoprolol Tartrate 50 MG TABLET PO ×3 (00:11→11:45)
[2021-10-26 03:42] VITALS: BP 129/82; PULSE 81; RESP 18; TEMP 36.7; O2SAT 98
[2021-10-26] MEDS: Omeprazole 20 MG CAPSULE.DR PO (05:49)
[2021-10-26 06:34] LABS: Anion Gap 10 (12-20); Blood Urea Nitrogen 13 mg/dL (9-16); Calcium 9.2 mg/dL (8.4-10.2); Carbon Dioxide 26 mmol/L (22-29); Chloride 103 mmol/L (96-108); Creatinine Clr Calc Pharmacy 88.7; Estimated Glomerular Filt Rate > 60; Glucose Random 248 mg/dL (60-115); Potassium 3.9 mmol/L (3.3-5.1); Sodium 135 mmol/L (135-145)
[2021-10-26 07:17] LABS: Glucose, Whole Blood 204 mg/dL (60-115)
[2021-10-26 07:49] VITALS: BP 154/87; PULSE 80; RESP 16; TEMP 37.1; O2SAT 98
[2021-10-26] MEDS: Insulin Glargine,Hum.rec.anlog 100 UNIT/ML 10 ML VIAL 8 UNIT SUBCUT (08:47)
[2021-10-26] MEDS: Insulin Lispro 100 UNIT/ML 3 ML VIAL SUBCUT ×2 (08:47→11:45)
[2021-10-26] MEDS: Cholecalciferol (Vitamin D3) 25 MCG TABLET 50 MCG PO (08:48)
[2021-10-26] MEDS: metFORMIN HCl ER 500 MG TAB.ER.24H 1000 MG PO (08:48)
[2021-10-26] MEDS: Multivitamin TABLET 1 TAB PO (08:48)
[2021-10-26] MEDS: Ferrous Sulfate 324 MG TABLET.DR PO (08:48)
[2021-10-26] MEDS: FLUoxetine HCl 20 MG CAPSULE 60 MG PO (08:48)
[2021-10-26] MEDS: hydroCHLOROthiazide 25 MG TABLET PO (08:49)
[2021-10-26] MEDS: 0.9 % Sodium Chloride Flush 3 ML SYRINGE IVFLUSH (08:49)
--- NOTE | 2021-10-26 09:47 | PM.PNCARD ---
Subjective Subjective Date of Service: 10/26/21 Principal diagnosis: Atrial flutter with rapid ventricular response Interval history: Patient states that she is doing okay. No specific complaints. No angina or shortness of breath or palpitations or leg swelling or any other complaints at this time. She denies any sensation of dizzy spells, presyncope or syncope. Review of Systems Review of Systems Yes all other systems are reviewed and are negative Constitutional: Reports as per HPI Eyes: Reports as per HPI Reports as per HPI Cardiovascular: Reports as per HPI, Denies acrocyanosis, Denies cool extremities, Denies chest pain, Denies leg edema, Denies lightheadedness, Denies palpitations and Denies dyspnea Respiratory: Reports as per HPI, Reports no additional respiratory complaints and Denies dyspnea Gastrointestinal: Reports as per HPI and Reports no additional gastrointestinal complaints Genitourinary: Reports as per HPI Musculoskeletal: Reports no additional musculoskeletal complaints and Reports as per HPI Skin/Breast: Reports system reviewed and no additional complaints, except as docu Reports system reviewed and no additional complaints, except as documented and Reports as per HPI Psychiatric: Reports no additional psychiatric complaints and Reports as per HPI Endocrine: Reports no additional endocrine complaints, Reports as per HPI and Denies palpitations Hematologic/Lymphatic: Reports no additional hematologic/lymphatic complaints and Reports as per HPI Allergic/Immunologic: Reports no additional allergic/immunologic complaints and Reports as per HPI Physical Exam Vital Signs: Last Vital Signs Temp 98.7 F 10/26/21 07:49 Pulse 80 10/26/21 07:49 Resp 16 10/26/21 07:49 BP 154/87 H 10/26/21 07:49 Pulse Ox 98 10/26/21 07:49 BMI result Body Mass Index 44.6 Const General: comfortable and no acute distress Orientation/consciousness: patient oriented x3 HEENT Other: Unremarkable Head: Yes normal to inspection Neck Neck: Yes normal visual inspection Chest Chest palpation & inspection: normal inspection of the chest Resp Auscultation: clear to auscultation bilaterally Cardio Palpation: normal PMI Heart sounds: S1 normal heart sound present, S2 normal heart sound present, no gallops, no murmurs and no rubs GI Palpation (GI): Soft to palpation Back/Spine/Pelvis Other: unremarkable Skin General skin exam: no rashes or lesions noted Neuro General: patient oriented x3 Extrem General: Yes normal to inspection Psych Mental Status: mental status grossly normal Objective Labs and Meds Result diagrams: 10/23/21 06:06 10/26/21 06:01 Lab results: Laboratory Results - last 24 hr 10/25/21 10/25/21 10/25/21 10:57 15:57 19:55 Sodium Potassium Chloride Carbon Dioxide Anion Gap BUN Creatinine Estim Creat Clear Calc Estimated GFR POC Glucose 252 H 218 H 181 H Random Glucose Calcium 10/26/21 10/26/21 06:01 07:13 Sodium 135 Potassium 3.9 Chloride 103 Carbon Dioxide 26 Anion Gap 10 L BUN 13 Creatinine 0.84 Estim Creat Clear Calc 88.7 Estimated GFR > 60 POC Glucose 204 H Random Glucose 248 H Calcium 9.2 Progress Note: A&P Assessment and plan (1) New onset atrial flutter: Status: Acute (2) Essential hypertension: Status: Acute Plan Telemetry was reviewed at rest as well as with activity. When she is resting, ventricular rate is about 80/Min with underlying flutter. Some other rates are much lower into the 50s and 60s and sometimes as low as 40s. Mostly seems to be in the 70s and 80s. When I made her walk on the hallway, ventricular rate went up to 104-105/Min. Clinically, she had no symptoms with rest or exertion. Echocardiogram with LVEF 40-45%. Otherwise unremarkable. As she is clinically very well compensated, we can plan on outpatient cardioversion after 4 weeks of appropriate anticoagulation. Can consolidate metoprolol to 100 mg b.i.d.. Otherwise, continue Xarelto. Outpatient follow-up will be arranged. Can stop aspirin. Discussed with family at the bedside. Also discussed with hospitalist . Time Spent With Patient Time: Total time spent is greater than 50% in coordination of care (as documented) at patient's floor/unit and/or counseling patient: 38min. Progress Note: Quality Stroke Does the patient have a stroke diagnosis?: No Procedures Date of Service Date of Service: 10/26/21
[2021-10-26 11:08] VITALS: BP 138/94; PULSE 79; RESP 16; TEMP 36.8; O2SAT 97
[2021-10-26 11:24] LABS: Glucose, Whole Blood 186 mg/dL (60-115)
--- NOTE | 2021-10-26 12:39 | PM.DS ---
DS: Providers Provider Date of Service: 10/26/21 Date of admission: 10/22/21 15:03 Primary care physician: Cynthia Carson DO Consults: 10/22/21 15:10 Consult to Cardiology Routine Consulting Provider: [facility] [place] [facility] Reason for consultation: aflutter new Has provider been notified: No DS: Diagnosis Discharge Diagnosis (1) New onset atrial flutter: Status: Acute (2) Essential hypertension: Status: Acute DS: Summary Hospital Course Hospital Course: HPI CC: Palpitations 55-year-old female with multiple comorbidities including hypertension, diabetes noncompliant to medication, hypercholesteremia, anemia-came to the hospital because of palpitations, generalized weakness, polyuria and polydipsia in addition patient checked her sugar this morning at home was 360. patient states that her symptoms started on 10/20/2021 (3 days prior to evaluation).? She states that she had intermittent sensation of palpitations were heart was beating rapidly.? She states that this continued over the next several days and today she states that her heart was beating faster.? She states that she felt lightheaded and dizzy.? She was feeling very weak generalized. Patient denies short of breath , fever, chills, rhinorrhea, sore throat, cough, chest pain.? She states that in the past she has had a intermittent episodes of palpitations but has never had palpitations that of last this long. In the ED patient received insulin, 3 L IV fluid, IV diltiazem drip:? Her blood pressure was softer on 90s range so received fluid and blood pressure a coming in 200 range now, heart rate is 100-120 on diltiazem drip, fingersticks are improving in 300 range. Lab imaging EKG reviewed:? Chest x-ray seems fine, EKG shows a flutter with variable AV block-medical rate around 108. BUN 16 BUN 26, creatinine 1.10 Fingersticks initially 560-trending down to 329 with insulin. Hospital course: She presented with palpitations and found to have new aflutter, initially treated with IV cardizem and ultimately transitioned to Metoprolol and now adjusted to dose of 100 mg bid with Heart rate now in 80s, she's also started on Xarelto for stroke prevention. Cardiology saw her in will follow up on outpatient basis for possible cardioversion. She had an echo with finding of he visually estimated ejection fraction is between 40-45%. Diastolic function is indeterminate on the basis of available data. Diabetes--her blood sugars are uncontrolled with Hemoblobin A1C of 11 and so started on Insulin with Lantus and Lispro in addition to her Metformin and to watch her diet. I talk her to talk to PCP about endocrinology follow up Time Spent with Patient Time attestation: Total time spent providing and/or coordinating discharge services: Discharge coordination time: Greater than 30 minutes Quality: Safe Use of Opioids Does Pt have an Active Cancer Diagnosis on the Problem List?: No Quality: Stroke Does the patient have a stroke diagnosis?: No Physical Exam Vital Signs: Vital Signs: Last Vital Signs Temp 98.2 F 10/26/21 11:08 Pulse 79 10/26/21 11:08 Resp 16 10/26/21 11:08 BP 138/94 H 10/26/21 11:08 Pulse Ox 97 10/26/21 11:08 BMI result Body Mass Index 44.6 DS: Data Data Completed and Pending Labs on day of discharge: Laboratory Results - last 24 hr 10/25/21 10/25/21 10/26/21 15:57 19:55 06:01 Sodium 135 Potassium 3.9 Chloride 103 Carbon Dioxide 26 Anion Gap 10 L BUN 13 Creatinine 0.84 Estim Creat Clear Calc 88.7 Estimated GFR > 60 POC Glucose 218 H 181 H Random Glucose 248 H Calcium 9.2 10/26/21 10/26/21 07:13 11:12 Sodium Potassium Chloride Carbon Dioxide Anion Gap BUN Creatinine Estim Creat Clear Calc Estimated GFR POC Glucose 204 H 186 H Random Glucose Calcium Discharge Plan Discharge Anticipated Discharge Date/Time: 10/26/21 12:28 Patient Disposition: Home, Self-Care Discharge Diagnosis: Atrial fibrilation Referrals: Cynthia Carson DO [Primary Care Provider] - 1 Week Discharge Medications: New Xarelto 20 mg Tablet 20 mg PO DAILY@1700 Qty: 30 0RF metoprolol tartrate 100 mg tablet 100 mg PO BID Qty: 60 0RF alcohol swabs Pads, Medicated 1 pad TOPICAL QIDACHS Qty: 100 0RF Rx Instructions: Use four times a day or as directed. insulin lispro [Humalog KwikPen Insulin] 100 unit/mL Insulin Pen 1 sliding scale dose SUBCUT QIDACHS Qty: 15 0RF Rx Instructions: Blood Sugar: <150 - 0 units 151-200 - 2 units 201-250 - 4 units 251-300 - 6 units 301-350 - 8 units >350 - 10 units Lantus Solostar U-100 Insulin 100 unit/mL (3 mL) Insulin Pen 10 unit SUBCUT DAILY Qty: 15 0RF (DME) pen needle, diabetic 32 gauge x 1/4 Needle Qty: 100 0RF Rx Instructions: Use four times a day or as directed. Continued multivitamin Tablet 1 tab PO DAILY 0RF baclofen 10 mg Tablet 10 mg PO TID PRN (Reason: Spasms) 0RF ferrous sulfate 325 mg (65 mg iron) Tablet 325 mg PO TID 0RF lisinopril 30 mg Tablet 30 mg PO DAILY 0RF hydrochlorothiazide 25 mg Tablet 25 mg PO DAILY 0RF omeprazole 20 mg Tablet,Delayed Release (Dr/Ec) 20 mg PO DAILY 0RF cholecalciferol (vitamin D3) [Vitamin D3] 50 mcg (2,000 unit) Tablet 50 mcg PO DAILY 0RF atorvastatin 80 mg tablet 1 tab PO BEDTIME 0RF sennosides [senna] 8.6 mg tablet 2 tab PO BEDTIME PRN (Reason: constipation) 0RF acetaminophen 650 mg tablet extended release 1 tab PO Q8H PRN (Reason: fever) 0RF docusate sodium 100 mg capsule 1 cap PO BID PRN (Reason: Constipation) 0RF trazodone 100 mg tablet 2 tab PO BEDTIME PRN (Reason: Insomnia) 0RF fluoxetine 20 mg capsule 3 cap PO DAILY 0RF fluticasone propionate 50 mcg/actuation spray,suspension 1 - 2 spray intranasal DAILY PRN (Reason: Allergy Symptoms) 0RF metformin 500 mg tablet extended release 24 hr 2 tab PO BID 0RF Discontinued aspirin [Aspirin Low Dose] 81 mg Tablet,Delayed Release (Dr/Ec) 81 mg PO DAILY 0RF Discharge Orders: Discharge Order (Routine); Ordered 10/26/21 Ordered By: Prasanth Guo Diet: advance to usual diet Activity on Discharge: As tolerated Stand Alone Forms: Patient Portal Discharge page Care Plan Goals: Control of atrial fibrilation Health Concerns: Atrial fibrilation, diabetes Plan of Treatment: Take metoprolol and Xarelto as recommendation for atrial fibrillation and follow up with Dr. Avery in the office Stop taking aspirin Assessment: As above Patient Instructions: A-fib (Atrial Fibrillation) (DC), Foot Care for People with Diabetes (DC), Type 2 Diabetes in Adults: New Diagnosis (DC), How to Check your Blood Sugar (DC)
--- NOTE | 2021-10-26 13:05 | MHC.CM.PN ---
Patient has been medically cleared for dc to home today, self care. IMM addressed with Patient at bedside and original has been given to her and a copy has been placed on the chart.
== END 2021-10-26 15:16 | disposition home or self-care (01) | DRG 309 ==
LOC: HO.ED 14:47 → HO.EDOVER 15:09 → HO.IMC 16:17
PROVIDERS: Admitting Provider Internal Medicine; Emergency Provider Emergency Medicine Emergency Medical Services; PCP Family Medicine; Visit Provider Internal Medicine
DX: I48.92 Unspecified atrial flutter (principal); Z68.41 Body mass index [BMI] 40.0-44.9, adult; N17.9 Acute kidney failure, unspecified; I10 Essential (primary) hypertension; K21.9 Gastro-esophageal reflux disease without esophagitis; E66.01 Morbid (severe) obesity due to excess calories; E86.0 Dehydration; Z20.822 Contact with and (suspected) exposure to COVID-19; Z91.14 Patient's other noncompliance with medication regimen; Z98.84 Bariatric surgery status; Z79.4 Long term (current) use of insulin; Z79.01 Long term (current) use of anticoagulants; Z79.84 Long term (current) use of oral hypoglycemic drugs; Z79.899 Other long term (current) drug therapy
CPT/HCPCS: 36415; 71045; 80048; 80053; 80307; 81001; 82947; 83036; 83690; 84443; 84484; 85025; 85027; 85379; 85610; 85730; 87502; 87635; 93005; 93306; 96361; 96365; 96366; 96372; 96375; 96376; 99285; 99291; J1160; J1650

== ENCOUNTER → 2021-10-27 12:03 | Outpatient (BNVA) | payer MEDICARE, MEDICAID, SELFPAY | PROVIDERS: PCP Family Medicine; Referring Provider Family Medicine; Visit Provider Nurse Practitioner Family | DX: Z09 Encounter for follow-up examination after completed treatment for conditions other than malignant neoplasm (principal); I48.92 Unspecified atrial flutter; I42.9 Cardiomyopathy, unspecified; I10 Essential (primary) hypertension; E11.9 Type 2 diabetes mellitus without complications; G47.10 Hypersomnia, unspecified | CPT/HCPCS: 93005; 99212 ==

== ENCOUNTER 2021-11-06 08:55 | Observation (INO) | payer MEDICARE, MEDICAID, SELFPAY ==
[2021-11-06] VITALS (9 sets, daily range): BP systolic 120–145; BP diastolic 65–98; PULSE 72–140; RESP 16–20; TEMP 36.3–37.2; O2SAT 97–98; BMI 43.9
--- NOTE | 2021-11-06 | ECG_ITS ---
Test Reason : TACHY Blood Pressure : / mmHG Vent. Rate : 139 BPM Atrial Rate : 278 BPM P-R Int : 000 ms QRS Dur : 086 ms QT Int : 294 ms P-R-T Axes : 000 010 104 degrees QTc Int : 447 ms Atrial flutter with 2:1 A-V conduction Nonspecific ST and T wave abnormality Abnormal ECG When compared with ECG of 22-OCT-2021 12:45, Nonspecific T wave abnormality, worse in Inferior leads Nonspecific T wave abnormality now evident in Lateral leads Referred By: Generic ED Physician Electronically Signed By:Hugh Nguyen
[2021-11-06 09:36] LABS: MANUAL DIFF FLAG NO
[2021-11-06 09:37] LABS: Basophils Percent Auto 0.3 % (0-2); Eosinophils Absolute Auto 0.1 X10*3/uL (0.0-0.4); Eosinophils Percent Auto 0.6 % (0-4); Hematocrit 37.8 % (37.0-47.0); Hemoglobin 12.8 g/dl (12.0-16.0); Imm Gran Abs Auto 0.02 X10*3/uL (0.00-0.03); Imm Gran Pct Auto 0.2 % (0.0-0.4); Lymphocytes Absolute Auto 2.6 X10*3/uL (1.2-4.9); Lymphocytes Percent Auto 28.6 % (20-40); Mean Corpuscular HGB Conc 33.9 g/dl (31.0-35.0); Mean Corpuscular Hemoglobin 31.9 pg (27.0-33.0); Mean Corpuscular Volume 94.3 fL (80.0-98.0); Mean Platelet Volume 8.9 fL (9.4-12.3); Monocytes Absolute Auto 0.6 X10*3/uL (0.1-1.2); Monocytes Percent Auto 6.2 % (2-11); Neutrophils Absolute Auto 5.8 x10*3/uL (2.0-8.3); Neutrophils Percent Auto 64.1 % (45-73); Platelet Count 376 X10*3/uL (160-400); Red Blood Count 4.01 X10*6/uL (4.20-5.50); Red Cell Distribution Width 12.2 % (11.0-16.0); White Blood Count 9.1 X10*3/uL (4.8-10.8)
[2021-11-06 10:02] LABS: Anion Gap 14 (12-20); Blood Urea Nitrogen 17 mg/dL (9-16); Calcium 9.7 mg/dL (8.4-10.2); Carbon Dioxide 25 mmol/L (22-29); Chloride 106 mmol/L (96-108); Creatinine Clr Calc Pharmacy 91.1; Estimated Glomerular Filt Rate > 60; Glucose Random 139 mg/dL (60-115); Potassium 4.5 mmol/L (3.3-5.1); Sodium 140 mmol/L (135-145)
[2021-11-06 10:05] LABS: B Type Natriuretic Peptide 135 pg/mL (<100); Troponin-I High Sensitivity < 3.5 ng/L (<3.5-17.0)
[2021-11-06] MEDS: Metoprolol Tartrate 50 MG TABLET PO ×2 (11:10→18:08)
[2021-11-06] MEDS: Metoprolol Tartrate 5 MG/5 ML VIAL IVPUSH (11:10)
--- NOTE | 2021-11-06 11:15 | PC.NURSE ---
pt a&ox3, tachycardic, tachypnea, 02 @ 98% on room air. residential monitor applied - afib. per pt took metoprolol this am. medicated per provider order.
--- NOTE | 2021-11-06 11:46 | ED_ITS ---
HPI - Arrhythmia/Palpitations General Chief Complaint: Arrhythmia/Palpitations Stated Complaint: palpitations/chills Time Seen by Provider: 11/06/21 10:31 Related Data Home Medications Medication Instructions Recorded Confirmed baclofen 10 mg tablet 10 mg PO TID PRN 04/29/20 11/06/21 cholecalciferol (vitamin D3) 50 50 mcg PO DAILY 04/29/20 11/06/21 mcg (2,000 unit) tablet (Vitamin D3) multivitamin 1 tab PO DAILY 04/29/20 11/06/21 omeprazole 20 mg tablet,delayed 20 mg PO DAILY 04/29/20 11/06/21 release acetaminophen 650 mg 1 tab PO Q8H PRN 10/22/21 11/06/21 tablet,extended release docusate sodium 100 mg capsule 1 cap PO BID PRN 10/22/21 11/06/21 fluoxetine 20 mg capsule 2 cap PO DAILY 10/22/21 11/06/21 fluticasone propionate 50 1 - 2 spray INTRANASAL DAILY PRN 10/22/21 11/06/21 mcg/actuation nasal spray,suspension metformin 500 mg tablet,extended 2 tab PO BID 10/22/21 11/06/21 release 24 hr sennosides 8.6 mg tablet (senna) 2 tab PO BEDTIME PRN 10/22/21 11/06/21 trazodone 100 mg tablet 2 tab PO BEDTIME PRN 10/22/21 11/06/21 atorvastatin 80 mg tablet 80 mg PO BEDTIME 10/27/21 11/06/21 insulin glargine 100 unit/mL (3 10 unit SUBCUT BEDTIME 11/06/21 11/06/21 mL) subcutaneous pen (Lantus Solostar U-100 Insulin) loratadine 10 mg tablet 1 tab PO DAILY PRN 11/06/21 11/06/21 Previous Rx's Medication Instructions Recorded alcohol swabs 1 pad TOPICAL QIDACHS #100 ea 10/26/21 insulin lispro 100 unit/mL 1 sliding scale dose SUBCUT 10/26/21 subcutaneous pen (Humalog KwikPen QIDACHS #15 ml (U-100) Insulin) metoprolol tartrate 100 mg tablet 100 mg PO BID #60 tab 10/26/21 pen needle, diabetic 32 gauge x #100 ea 10/26/2107/06 rivaroxaban 20 mg tablet (Xarelto) 20 mg PO DAILY@1700 #30 tab 10/26/21 Allergies Allergy/AdvReac Type Severity Reaction Status Date / Time No Known Allergies Allergy Verified 10/27/21 12:08 [No Known Allergies*] [facility] Past Medical History Medical History Abdominal pain Anemia Arthritis Depression Diabetes Diabetes Essential hypertension GERD (gastroesophageal reflux disease) Hepatitis HTN (hypertension) Hypercholesteremia Lab test negative for COVID-19 virus Surgical History Bariatric surgery status Hx of abdominal surgery Hx of section Hx of cholecystectomy Hx of dilation and curettage Hx of excision of mass Hx of gastric bypass Hx of reduction mammoplasty Hx of tubal ligation Social History Social History Household Members: Children Housing: Apartment Do you presently have visiting nurse or other home services: Yes ([employer]) Alcohol intake: never Patient Tobacco Use Status: Never used Tobacco e-Cigarette/Vaping Use: Never Used Advance Directives: No Advance Directives Information Provided: Yes service: No Current occupational status: disabled Current occupation: rt handed Physical Exam Vital Signs: Vital Signs: Last Vital Signs Temp 99.0 F 11/06/21 12:38 Pulse 108 H 11/06/21 12:38 Resp 18 11/06/21 12:38 BP 130/82 11/06/21 12:38 Pulse Ox 98 11/06/21 12:38 BMI result Body Mass Index 43.9 MDM - Arrhythmia/Palpitations MDM Narrative Medical decision making narrative: Positive atrial fibrillation. Patient given Lopressor IV and also p.o.. Heart rate is down to approximately 110. Case discussed with Cardiology. Will admit for further evaluation. Further monitoring. Patient's EKG showed a atrial fibrillation atrial flutter pattern heart rate initially was 140. There is no acute ST segment elevation noted. Medical Records Attestation: I reviewed the patient's medical records. Lab Data Attestation: I reviewed the patient's lab results. Result diagrams: 11/06/21 09:32 11/06/21 09:31 Labs: Lab Results 05/07/22 05/07/22 05/07/22 Range/Units 09:31 09:32 09:32 WBC 9.1 (4.8-10.8) X10*3/uL RBC 4.01 L (4.20-5.50) X10*6/uL Hgb 12.8 (12.0-16.0) g/dl Hct 37.8 (37.0-47.0) % MCV 94.3 (80.0-98.0) fL MCH 31.9 (27.0-33.0) pg MCHC 33.9 (31.0-35.0) g/dl RDW 12.2 (11.0-16.0) % Plt Count 376 D (160-400) X10*3/uL MPV 8.9 L (9.4-12.3) fL Immature Gran % (Auto) 0.2 (0.0-0.4) % Neut % (Auto) 64.1 (45-73) % Lymph % (Auto) 28.6 (20-40) % Blaine % (Auto) 6.2 (2-11) % Eos % (Auto) 0.6 (0-4) % Baso % (Auto) 0.3 (0-2) % Lymph # (Auto) 2.6 (1.2-4.9) X10*3/uL [place]aine # (Auto) 0.6 (0.1-1.2) X10*3/uL Eos # (Auto) 0.1 (0.0-0.4) X10*3/uL Baso # (Auto) 0.0 (0.0-0.2) X10*3/uL Abs Immat Gran (auto) 0.02 (0.00-0.03) X10*3/uL Absolute Neuts (auto) 5.8 (2.0-8.3) x10*3/uL Absolute Nucleated RBC 0.000 (0.0-0.012) X10*3/uL Nucleated RBC % (auto) 0.0 (0.0-0.2) /100WBC Sodium 140 (135-145) mmol/L Potassium 4.5 (3.3-5.1) mmol/L Chloride 106 (96-108) mmol/L Carbon Dioxide 25 (22-29) mmol/L Anion Gap 14 (12-20) BUN 17 H (9-16) mg/dL Creatinine 0.81 (0.5-1.4) mg/dL Estim Creat Clear Calc 91.1 Estimated GFR > 60 Random Glucose 139 H (60-115) mg/dL Calcium 9.7 (8.4-10.2) mg/dL Troponin I High Sens < 3.5 D (<3.5-17.0) ng/L B-Natriuretic Peptide 135 H (<100) pg/mL Urine Color Urine Appearance Urine pH (5.0-8.0) Ur Specific [place] (1.005-1.025) Urine Protein (NEG-TRACE) MG/DL Urine Glucose (UA) (NEG) MG/DL Urine Ketones (NEG) MG/DL Urine Blood (NEG) Urine Nitrite (NEG) Ur Leukocyte Esterase (NEG) COVID-19 (FRANC) (Negative) COVID-19 Clin Com 11/06/21 11/06/21 Range/Units 12:33 14:12 WBC (4.8-10.8) X10*3/uL RBC (4.20-5.50) X10*6/uL Hgb (12.0-16.0) g/dl Hct (37.0-47.0) % MCV (80.0-98.0) fL MCH (27.0-33.0) pg MCHC (31.0-35.0) g/dl RDW (11.0-16.0) % Plt Count (160-400) X10*3/uL MPV (9.4-12.3) fL Immature Gran % (Auto) (0.0-0.4) % Neut % (Auto) (45-73) % Lymph % (Auto) (20-40) % Blaine % (Auto) (2-11) % Eos % (Auto) (0-4) % Baso % (Auto) (0-2) % Lymph # (Auto) (1.2-4.9) X10*3/uL Blaine # (Auto) (0.1-1.2) X10*3/uL Eos # (Auto) (0.0-0.4) X10*3/uL Baso # (Auto) (0.0-0.2) X10*3/uL Abs Immat Gran (auto) (0.00-0.03) X10*3/uL Absolute Neuts (auto) (2.0-8.3) x10*3/uL Absolute Nucleated RBC (0.0-0.012) X10*3/uL Nucleated RBC % (auto) (0.0-0.2) /100WBC Sodium (135-145) mmol/L Potassium (3.3-5.1) mmol/L Chloride (96-108) mmol/L Carbon Dioxide (22-29) mmol/L Anion Gap (12-20) BUN (9-16) mg/dL Creatinine (0.5-1.4) mg/dL Estim Creat Clear Calc Estimated GFR Random Glucose (60-115) mg/dL Calcium (8.4-10.2) mg/dL Troponin I High Sens (<3.5-17.0) ng/L B-Natriuretic Peptide (<100) pg/mL Urine Color YELLOW Urine Appearance HAZY Urine pH 6.0 (5.0-8.0) Ur Specific [place] >= 1.030 H (1.005-1.025) Urine Protein NEG (NEG-TRACE) MG/DL Urine Glucose (UA) NEG (NEG) MG/DL Urine Ketones NEG (NEG) MG/DL Urine Blood 1+ H (NEG) Urine Nitrite POS H (NEG) Ur Leukocyte Esterase NEG (NEG) COVID-19 (FRANC) Negative (Negative) COVID-19 Clin Com See Note Discharge Plan Discharge Clinical Impression: Atrial fibrillation Prescriptions: No Action multivitamin Tablet 1 tab PO DAILY 0RF baclofen 10 mg Tablet 10 mg PO TID PRN (Reason: Spasms) 0RF omeprazole 20 mg Tablet,Delayed Release (Dr/Ec) 20 mg PO DAILY 0RF cholecalciferol (vitamin D3) [Vitamin D3] 50 mcg (2,000 unit) Tablet 50 mcg PO DAILY 0RF loratadine 10 mg tablet 1 tab PO DAILY PRN (Reason: Allergy Symptoms) 0RF Lantus Solostar U-100 Insulin 100 unit/mL (3 mL) insulin pen 10 unit SUBCUT BEDTIME 0RF sennosides [senna] 8.6 mg tablet 2 tab PO BEDTIME PRN (Reason: constipation) 0RF acetaminophen 650 mg tablet extended release 1 tab PO Q8H PRN (Reason: fever) 0RF docusate sodium 100 mg capsule 1 cap PO BID PRN (Reason: Constipation) 0RF trazodone 100 mg tablet 2 tab PO BEDTIME PRN (Reason: Insomnia) 0RF fluoxetine 20 mg capsule 2 cap PO DAILY 0RF fluticasone propionate 50 mcg/actuation spray,suspension 1 - 2 spray intranasal DAILY PRN (Reason: Allergy Symptoms) 0RF metformin 500 mg tablet extended release 24 hr 2 tab PO BID 0RF Xarelto 20 mg Tablet 20 mg PO DAILY@1700 Qty: 30 0RF metoprolol tartrate 100 mg tablet 100 mg PO BID Qty: 60 0RF alcohol swabs Pads, Medicated 1 pad TOPICAL QIDACHS Qty: 100 0RF Rx Instructions: Use four times a day or as directed. insulin lispro [Humalog KwikPen Insulin] 100 unit/mL Insulin Pen 1 sliding scale dose SUBCUT QIDACHS Qty: 15 0RF Rx Instructions: Blood Sugar: <150 - 0 units 151-200 - 2 units 201-250 - 4 units 251-300 - 6 units 301-350 - 8 units >350 - 10 units (DME) pen needle, diabetic 32 gauge x 1/4 Needle Qty: 100 0RF Rx Instructions: Use four times a day or as directed. atorvastatin 80 mg tablet 80 mg PO BEDTIME 0RF
[2021-11-06 12:53] LABS: COVID-19 Test Negative (Negative)
--- NOTE | 2021-11-06 13:38 | P.HPHOSP_ITS ---
History of Present Illness Date of Service: 11/06/21 Attending physician on admission: Jessica Sandra Chief Complaint: Palpitations, chest tightness, short of breath. 55-year-old female who has history of a flutter new onset recently discharged on p.o. metoprolol/the Xarelto: Patient coming back she says she has few days feeling palpitations and some chest tightness also on top of that gets easily tired and short of breath with exertion. She is not great historian but also has some anxiety going on the background but does not want to talk about it, she thinks that it might have been contributing to above. Patient was in ED is received IV metoprolol for artery flutter, also given p.o. metoprolol heart rate is running from 100-110 range with s resting and with sitting her heart rate goes into 130-140range she failed tired. Denies any abdominal pain or nausea or vomiting or diarrhea or fever Feel chills Denies any cough or phlegm or any urinary complaints. Seem anxious. Could not get more information since very emotional with each stance sentence . Review of Systems Review of Systems: as above. [facility] Medical History Abdominal pain Anemia Arthritis Depression Diabetes Diabetes Essential hypertension GERD (gastroesophageal reflux disease) Hepatitis HTN (hypertension) Hypercholesteremia Lab test negative for COVID-19 virus Pertinent family history: Denies any family history of cardiac disease. 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) Alcohol intake: never Patient Tobacco Use Status: Never used Tobacco e-Cigarette/Vaping Use: Never Used Advance Directives: No Advance Directives Information Provided: Yes service: No Current occupational status: disabled Current occupation: rt handed Meds Allergies Allergy/AdvReac Type Severity Reaction Status Date / Time No Known Allergies Allergy Verified 10/27/21 12:08 [No Known Allergies*] Active Medications: Current Medications Pharmacy Consult (Consult Rx Perform Med Rec) 1 each MISCELLANE ONCE PRN PRN Reason: Consult order Sodium Chloride (0.9 % Sodium Chloride Flush 3 Ml Syringe) 3 ml IVFLUSH [facility] Home Medications Medication Instructions Recorded Confirmed Last Taken Type baclofen 10 mg tablet 10 mg PO TID PRN 04/29/20 10/27/21 Unknown History cholecalciferol (vitamin D3) 50 50 mcg PO DAILY 04/29/20 10/27/21 10/21/21 History mcg (2,000 unit) tablet (Vitamin D3) ferrous sulfate 325 mg (65 mg 325 mg PO TID 04/29/20 10/27/21 10/21/21 History iron) tablet multivitamin 1 tab PO DAILY 04/29/20 10/27/21 10/21/21 History omeprazole 20 mg tablet,delayed 20 mg PO DAILY 04/29/20 10/27/21 10/21/21 History release acetaminophen 650 mg 1 tab PO Q8H PRN 10/22/21 10/27/21 Unknown History tablet,extended release docusate sodium 100 mg capsule 1 cap PO BID PRN 10/22/21 10/27/21 Unknown History fluoxetine 20 mg capsule 3 cap PO DAILY 10/22/21 10/27/21 10/21/21 History fluticasone propionate 50 1 - 2 spray INTRANASAL DAILY PRN 10/22/21 10/27/21 Unknown History mcg/actuation nasal spray,suspension metformin 500 mg tablet,extended 2 tab PO BID 10/22/21 10/27/21 10/22/21 History release 24 hr sennosides 8.6 mg tablet (senna) 2 tab PO BEDTIME PRN 10/22/21 10/27/21 Unknown History trazodone 100 mg tablet 2 tab PO BEDTIME PRN 10/22/21 10/27/21 Unknown History atorvastatin 80 mg tablet 80 mg PO BEDTIME 10/27/21 10/27/21 Unknown History loratadine 10 mg tablet 1 tab PO DAILY 11/06/21 Unknown History Physical Exam Vital Signs and Narrative: Vital Signs: Last Vital Signs Temp 99.0 F 11/06/21 12:38 Pulse 108 H 11/06/21 12:38 Resp 18 11/06/21 12:38 BP 130/82 11/06/21 12:38 Pulse Ox 98 11/06/21 12:38 BMI result Body Mass Index 43.9 Appearance: Alert.? Oriented X3.? not in distress.? Eyes: Pupils equal, round and reactive to light.? Sclera nonicteric.? ENT: Pharynx normal.? Moist mucous membranes. cvs: irregular rythem, [id number] . res: clear to auscultation ,no rhonchii or wheezing abd: no rebound or guarding ,nt, bs present. ext pulses present , no cyanosis . neuro: axo3 , nonfocal. Results Labs CBC and Chem 7: 11/06/21 09:32 11/06/21 09:31 Labs: Laboratory Results - last 24 hr 11/06/21 11/06/21 11/06/21 09:31 09:32 09:32 MCV 94.3 MCH 31.9 MCHC 33.9 RDW 12.2 Plt Count 376 D MPV 8.9 L Immature Gran % (Auto) 0.2 Neut % (Auto) 64.1 Lymph % (Auto) 28.6 [place] % (Auto) 6.2 Eos % (Auto) 0.6 Baso % (Auto) 0.3 Lymph # (Auto) 2.6 [place] # (Auto) 0.6 Eos # (Auto) 0.1 Baso # (Auto) 0.0 Abs Immat Gran (auto) 0.02 Absolute Neuts (auto) 5.8 Absolute Nucleated RBC 0.000 Nucleated RBC % (auto) 0.0 Anion Gap 14 Estim Creat Clear Calc 91.1 Estimated GFR > 60 Random Glucose 139 H Calcium 9.7 Troponin I High Sens < 3.5 D B-Natriuretic Peptide 135 H COVID-19 (FRANC) COVID-19 Clin Com 11/06/21 12:33 MCV MCH MCHC RDW Plt Count MPV Immature Gran % (Auto) Neut % (Auto) Lymph % (Auto) [place] % (Auto) Eos % (Auto) Baso % (Auto) Lymph # (Auto) [place] # (Auto) Eos # (Auto) Baso # (Auto) Abs Immat Gran (auto) Absolute Neuts (auto) Absolute Nucleated RBC Nucleated RBC % (auto) Anion Gap Estim Creat Clear Calc Estimated GFR Random Glucose Calcium Troponin I High Sens B-Natriuretic Peptide COVID-19 (FRANC) Negative COVID-19 Clin Com See Note Assessment and Plan (1) New onset atrial flutter: Status: Acute (2) Diabetes: Status: Acute Plan 55-year-old female who came with palpitation and generalized weakness, diabetic and hypertensive but not compliance with medication-getting admitted for a flutter and uncontrolled diabetes. 1. Atrial flutter Patient had palpitations, chest tightness ,hr increase even with sitting 1 troponin negative, 2nd troponin ordered, ekg aflutter 2:1 TSH normal last admission Monitor on tele continue metoprolol and may need to add cardizem if hr not control 2. diabetes:? continue hfingerstick with sliding scale coverage,home regimen. 3.HLP:? Continue home medication medical reconciliation is still pending. 4. Hypertension:?continue metoprolol. 5. Morbid obesity:? Advised to cut down calories and encouraged for weight loss.? Of note she had a gastric bypass surgery in the past too. 6. GERD: Continue omeprazole. 7. anxiety: added care team eval. DVT prophylaxis:? jose Above management discussed the patient in detail length she understand in agreement with the above plan, time spent 70 minute, patient full code. Quality Stroke Does the patient have a stroke diagnosis?: No VTE Prior VTE?: No VTE Risk Level:: Medical - moderate - high VTE Device Contraindication: N/A - Device Ordered VTE Drug Contraindication: N/A - Med Ordered
--- NOTE | 2021-11-06 14:14 | PHA.MEDREC ---
Pharmacy Consult ? Medication Reconciliation Pharmacy has completed the medication reconciliation. Patient is no longer on lisinopril or iron, and is taking prozac 40mg daily (vs 60 mg)
[2021-11-06 14:17] LABS: Appearance Urine HAZY; Color Urine YELLOW; Glucose Urine UA NEG (NEG); Leukocyte Esterase Urine NEG (NEG); Nitrite Urine POS (NEG); Specific Gravity - Urine >= 1.030 (1.005-1.025); UACC Culture Trigger YES; Urine Blood 1+ (NEG); Urine Ketones NEG (NEG); Urine Protein NEG (NEG-TRACE)
[2021-11-06 14:25] LABS: Troponin-I High Sensitivity < 3.5 ng/L (<3.5-17.0)
[2021-11-06 14:25] LABS: Bacteria Urine 4+ /LPF; Squamous Epithelial Cell Urine 4+ /LPF; UACC CULT YES
[2021-11-06 15:28] LABS: Adenovirus PCR Not Detected (Not Detect.); Bordetella parapertussis PCR Not Detected (Not Detect.); Bordetella pertussis PCR Not Detected (Not Detect.); Chlamydia pneumoniae PCR Not Detected (Not Detect.); Coronavirus 229E PCR Not Detected (Not Detect.); Coronavirus HKU1 PCR Not Detected (Not Detect.); Coronavirus NL63 PCR Not Detected (Not Detect.); Coronavirus OC43 PCR Not Detected (Not Detect.); Human metapneumovirus PCR Not Detected (Not Detect.); Influenza A PCR Not Detected (Not Detect.); Influenza B PCR Not Detected (Not Detect.); Mycoplasma pneumoniae PCR Not Detected (Not Detect.); Parainfluenza 1 PCR Not Detected (Not Detect.); Parainfluenza 2 PCR Not Detected (Not Detect.); Parainfluenza 3 PCR Not Detected (Not Detect.); Parainfluenza 4 PCR Not Detected (Not Detect.); RSV PCR Not Detected (Not Detect.); Rhino/Enterovirus PCR Not Detected (Not Detect.); SARS-CoV-2 PCR Not Detected (Not Detect.)
--- NOTE | 2021-11-06 16:24 | PC.NURSE ---
attempted to call in report, TigerTexted RN per community development aide request.
[2021-11-06] MEDS: metFORMIN HCl ER 500 MG TAB.ER.24H 1000 MG PO (18:08)
[2021-11-06] MEDS: Rivaroxaban 20 MG TABLET PO (18:08)
[2021-11-06] MEDS: 0.9 % Sodium Chloride Flush 3 ML SYRINGE IVFLUSH ×2 (18:08→21:27)
[2021-11-06 18:20] LABS: Glucose, Whole Blood 114 mg/dL (60-115)
[2021-11-06 19:53] LABS: Glucose, Whole Blood 199 mg/dL (60-115)
[2021-11-06] MEDS: Insulin Lispro 100 UNIT/ML 3 ML VIAL SUBCUT (21:26)
[2021-11-06] MEDS: Metoprolol Tartrate 100 MG TABLET PO (21:26)
[2021-11-06] MEDS: Insulin Glargine,Hum.rec.anlog 100 UNIT/ML 10 ML VIAL 10 UNIT SUBCUT (21:26)
[2021-11-07 04:00] VITALS: BP 107/60; PULSE 67; RESP 20; TEMP 36.3; O2SAT 96
[2021-11-07] MEDS: Omeprazole 20 MG CAPSULE.DR PO (06:36)
[2021-11-07 07:01] LABS: Hematocrit 39.2 % (37.0-47.0); Hemoglobin 13.1 g/dl (12.0-16.0); Mean Corpuscular HGB Conc 33.4 g/dl (31.0-35.0); Mean Corpuscular Volume 95.8 fL (80.0-98.0); Mean Platelet Volume 9.5 fL (9.4-12.3); Platelet Count 348 X10*3/uL (160-400); Red Blood Count 4.09 X10*6/uL (4.20-5.50); Red Cell Distribution Width 12.3 % (11.0-16.0); White Blood Count 7.9 X10*3/uL (4.8-10.8)
[2021-11-07 07:06] LABS: Anion Gap 14 (12-20); Blood Urea Nitrogen 16 mg/dL (9-16); Carbon Dioxide 26 mmol/L (22-29); Chloride 106 mmol/L (96-108); Creatinine Clr Calc Pharmacy 87.9; Estimated Glomerular Filt Rate > 60; Glucose Random 116 mg/dL (60-115); Potassium 4.3 mmol/L (3.3-5.1); Sodium 142 mmol/L (135-145)
[2021-11-07 07:43] LABS: Glucose, Whole Blood 120 mg/dL (60-115)
[2021-11-07 07:59] VITALS: BP 124/94; PULSE 75; RESP 20; TEMP 36.3; O2SAT 98
--- NOTE | 2021-11-07 08:12 | HO.PM.IMPN ---
Subjective Subjective Date of Service: 11/07/21 Interval History: A flutter. Review of Systems Still in a flutter with exertion heart rate goes into 140s has some palpitation Physical Exam Vital Signs: Vital Signs: Last Vital Signs Temp 97.4 F 11/07/21 07:59 Pulse 75 11/07/21 07:59 Resp 20 11/07/21 07:59 BP 124/94 H 11/07/21 07:59 Pulse Ox 98 11/07/21 07:59 BMI result Body Mass Index 43.9 Appearance: Alert.? Oriented X3.? not in distress.? cvs: irregular rythem, [id number] . res: clear to auscultation ,no rhonchii or wheezing abd: no rebound or guarding ,nt, bs present. ext pulses present , no cyanosis . neuro: axo3 , nonfocal. Objective Data Active Medications Acetaminophen (Acetaminophen 325 Mg Tablet) 650 mg PO Q8H PRN PRN Reason: fever Baclofen (Baclofen 10 Mg Tablet) 10 mg PO TID PRN PRN Reason: Spasms Docusate Sodium (Docusate Sodium 100 Mg Capsule) 100 mg PO BID PRN PRN Reason: Constipation Fluoxetine HCl (Fluoxetine Hcl 20 Mg Capsule) 40 mg PO DAILY COUNTS INCLUDE 234 BEDS AT THE [facility] Fluticasone Propionate (Fluticasone Propionate Nasal 16 Gm [place]) 1 - 2 spray NOSTRIL-B DAILY PRN PRN Reason: Allergy Symptoms Insulin Glargine (Insulin Glargine,Hum.Rec.Anlog 100 Unit/Ml 10 Ml Vial) 10 unit SUBCUT BEDTIME COUNTS INCLUDE 234 BEDS AT THE [facility] Last Admin: 11/06/21 21:26 Dose: 10 unit Documented by: FÁTIMA Insulin Human Lispro (Insulin Lispro 100 Unit/Ml 3 Ml Vial) 0 unit SUBCUT QIDACHS COUNTS INCLUDE 234 BEDS AT THE [facility]; Protocol Last Admin: 11/06/21 21:26 Dose: 2 unit Documented by: FÁTIMA Loratadine (Loratadine 10 Mg Tablet) 10 mg PO DAILY PRN PRN Reason: Allergy Symptoms Metformin HCl (Metformin Hcl Er 500 Mg Tab.Er.24h) 1,000 mg PO BIDWM COUNTS INCLUDE 234 BEDS AT THE [facility] Last Admin: 11/06/21 18:08 Dose: 1,000 mg Documented by: LUPILLO Metoprolol Tartrate (Metoprolol Tartrate 100 Mg Tablet) 100 mg PO BID COUNTS INCLUDE 234 BEDS AT THE [facility]; Protocol Last Admin: 11/06/21 21:26 Dose: 100 mg Documented by: FÁTIMA Multivitamins/Vitamin C (Multivitamin Tablet) 1 tab PO DAILY COUNTS INCLUDE 234 BEDS AT THE [facility] Omeprazole (Omeprazole 20 Mg Capsule.Dr) 20 mg PO DAILY@0630 COUNTS INCLUDE 234 BEDS AT THE [facility] Last Admin: 11/07/21 06:36 Dose: 20 mg Documented by: FÁTIMA Pharmacy Consult (Consult Rx Perform Med Rec) 1 each MISCELLANE ONCE PRN PRN Reason: Consult order Rivaroxaban (Rivaroxaban 20 Mg Tablet) 20 mg PO DAILY@1700 COUNTS INCLUDE 234 BEDS AT THE [facility] Last Admin: 11/06/21 18:08 Dose: 20 mg Documented by: LUPILLO Senna (Sennosides 8.6 Mg Tablet) 17.2 mg PO BEDTIME PRN PRN Reason: constipation Sodium Chloride (0.9 % Sodium Chloride Flush 3 Ml Syringe) 3 ml IVFLUSH QSHIFT COUNTS INCLUDE 234 BEDS AT THE [facility] Last Admin: 11/06/21 21:27 Dose: 3 ml Documented by: FÁTIMA Trazodone HCl (Trazodone Hcl 100 Mg Tablet) 200 mg PO BEDTIME PRN PRN Reason: Insomnia Vitamin D (Cholecalciferol (Vitamin D3) 25 Mcg Tablet) 50 mcg PO DAILY COUNTS INCLUDE 234 BEDS AT THE [facility] Labs CBC & Chem 7: 11/07/21 06:26 11/07/21 06:26 Labs: Laboratory Results - last 24 hr 11/06/21 11/06/21 11/06/21 09:31 09:32 09:32 MCV 94.3 MCH 31.9 MCHC 33.9 RDW 12.2 Plt Count 376 D MPV 8.9 L Immature Gran % (Auto) 0.2 Neut % (Auto) 64.1 Lymph % (Auto) 28.6 [place] % (Auto) 6.2 Eos % (Auto) 0.6 Baso % (Auto) 0.3 Lymph # (Auto) 2.6 [place] # (Auto) 0.6 Eos # (Auto) 0.1 Baso # (Auto) 0.0 Abs Immat Gran (auto) 0.02 Absolute Neuts (auto) 5.8 Absolute Nucleated RBC 0.000 Nucleated RBC % (auto) 0.0 Anion Gap 14 Estim Creat Clear Calc 91.1 Estimated GFR > 60 POC Glucose Random Glucose 139 H Calcium 9.7 Troponin I High Sens < 3.5 D B-Natriuretic Peptide 135 H Urine Color Urine Appearance Urine pH Ur Specific [place] Urine Protein Urine Glucose (UA) Urine Ketones Urine Blood Urine Nitrite Ur Leukocyte Esterase Urine RBC Urine WBC Ur Squamous Epith Cells Urine Bacteria Respiratory Panel [place] Adenovirus (Rapid PCR) B.pert (TEM-PCR) B.parapertussis DNA PCR C. pneumoniae DNA (PCR) Coronavirus OC43 (PCR) Coronavirus HKU1 (PCR) Coronavirus 229E (PCR) COVID-19 (FRANC) COVID-19 Clin Com Coronavirus NL63 (PCR) Human Metapneumovir PCR Influenza A (RT-PCR) Influenza B (RT-PCR) M. pneumoniae (PCR) Parainfluenza 1 (PCR) Parainfluenza 2 (PCR) Parainfluenza 3 (PCR) Parainfluenza 4 (PCR) RSV (PCR) Entero/Rhino (PCR) SARS-CoV-2 RNA (RT-PCR) 11/06/21 11/06/21 11/06/21 12:33 13:59 13:59 MCV MCH MCHC RDW Plt Count MPV Immature Gran % (Auto) Neut % (Auto) Lymph % (Auto) [place] % (Auto) Eos % (Auto) Baso % (Auto) Lymph # (Auto) [place] # (Auto) Eos # (Auto) Baso # (Auto) Abs Immat Gran (auto) Absolute Neuts (auto) Absolute Nucleated RBC Nucleated RBC % (auto) Anion Gap Estim Creat Clear Calc Estimated GFR POC Glucose Random Glucose Calcium Troponin I High Sens < 3.5 B-Natriuretic Peptide Urine Color Urine Appearance Urine pH Ur Specific [place] Urine Protein Urine Glucose (UA) Urine Ketones Urine Blood Urine Nitrite Ur Leukocyte Esterase Urine RBC Urine WBC Ur Squamous Epith Cells Urine Bacteria Respiratory Panel Rader See Note Adenovirus (Rapid PCR) Not Detected B.pert (TEM-PCR) Not Detected B.parapertussis DNA PCR Not Detected C. pneumoniae DNA (PCR) Not Detected Coronavirus OC43 (PCR) Not Detected Coronavirus HKU1 (PCR) Not Detected Coronavirus 229E (PCR) Not Detected COVID-19 (FRANC) Negative COVID-19 Clin Com See Note Coronavirus NL63 (PCR) Not Detected Human Metapneumovir PCR Not Detected Influenza A (RT-PCR) Not Detected Influenza B (RT-PCR) Not Detected M. pneumoniae (PCR) Not Detected Parainfluenza 1 (PCR) Not Detected Parainfluenza 2 (PCR) Not Detected Parainfluenza 3 (PCR) Not Detected Parainfluenza 4 (PCR) Not Detected RSV (PCR) Not Detected Entero/Rhino (PCR) Not Detected SARS-CoV-2 RNA (RT-PCR) Not Detected 11/06/21 11/06/21 11/06/21 14:12 18:16 19:49 MCV MCH MCHC RDW Plt Count MPV Immature Gran % (Auto) Neut % (Auto) Lymph % (Auto) [place] % (Auto) Eos % (Auto) Baso % (Auto) Lymph # (Auto) [place] # (Auto) Eos # (Auto) Baso # (Auto) Abs Immat Gran (auto) Absolute Neuts (auto) Absolute Nucleated RBC Nucleated RBC % (auto) Anion Gap Estim Creat Clear Calc Estimated GFR POC Glucose 114 199 H Random Glucose Calcium Troponin I High Sens B-Natriuretic Peptide Urine Color YELLOW Urine Appearance HAZY Urine pH 6.0 Ur Specific [place] >= 1.030 H Urine Protein NEG Urine Glucose (UA) NEG Urine Ketones NEG Urine Blood 1+ H Urine Nitrite POS H Ur Leukocyte Esterase NEG Urine RBC 1-4 Urine WBC 1-4 Ur Squamous Epith Cells 4+ Urine Bacteria 4+ Respiratory Panel [place] Adenovirus (Rapid PCR) B.pert (TEM-PCR) B.parapertussis DNA PCR C. pneumoniae DNA (PCR) Coronavirus OC43 (PCR) Coronavirus HKU1 (PCR) Coronavirus 229E (PCR) COVID-19 (FRANC) COVID-19 Clin Com Coronavirus NL63 (PCR) Human Metapneumovir PCR Influenza A (RT-PCR) Influenza B (RT-PCR) M. pneumoniae (PCR) Parainfluenza 1 (PCR) Parainfluenza 2 (PCR) Parainfluenza 3 (PCR) Parainfluenza 4 (PCR) RSV (PCR) Entero/Rhino (PCR) SARS-CoV-2 RNA (RT-PCR) 11/07/21 11/07/21 11/07/21 06:26 06:26 07:30 MCV 95.8 MCH 32.0 MCHC 33.4 RDW 12.3 Plt Count 348 MPV 9.5 Immature Gran % (Auto) Neut % (Auto) Lymph % (Auto) [place] % (Auto) Eos % (Auto) Baso % (Auto) Lymph # (Auto) [place] # (Auto) Eos # (Auto) Baso # (Auto) Abs Immat Gran (auto) Absolute Neuts (auto) Absolute Nucleated RBC 0.000 Nucleated RBC % (auto) 0.0 Anion Gap 14 Estim Creat Clear Calc 87.9 Estimated GFR > 60 POC Glucose 120 H Random Glucose 116 H Calcium 10.0 Troponin I High Sens B-Natriuretic Peptide Urine Color Urine Appearance Urine pH Ur Specific [place] Urine Protein Urine Glucose (UA) Urine Ketones Urine Blood Urine Nitrite Ur Leukocyte Esterase Urine RBC Urine WBC Ur Squamous Epith Cells Urine Bacteria Respiratory Panel Rader Adenovirus (Rapid PCR) B.pert (TEM-PCR) B.parapertussis DNA PCR C. pneumoniae DNA (PCR) Coronavirus OC43 (PCR) Coronavirus HKU1 (PCR) Coronavirus 229E (PCR) COVID-19 (FRANC) COVID-19 Clin Com Coronavirus NL63 (PCR) Human Metapneumovir PCR Influenza A (RT-PCR) Influenza B (RT-PCR) M. pneumoniae (PCR) Parainfluenza 1 (PCR) Parainfluenza 2 (PCR) Parainfluenza 3 (PCR) Parainfluenza 4 (PCR) RSV (PCR) Entero/Rhino (PCR) SARS-CoV-2 RNA (RT-PCR) Assessment and Plan (1) Atrial fibrillation: Status: Acute (2) Diabetes: Status: Acute Plan 55-year-old female who came with palpitation and generalized weakness, diabetic and hypertensive but not compliance with medication-getting admitted for a flutter and uncontrolled diabetes. 1. Atrial flutter Patient had palpitations, chest tightness ,hr increase even with sitting 1 troponin negative, 2nd troponin ordered, ekg aflutter 2:1 TSH normal last admission Monitor on tele continue metoprolol and d/w cardio-added digoxinloading cardio eval pending 2.? diabetes:? continue? hfingerstick with sliding scale coverage,home regimen. 3.HLP:? Continue home medication medical reconciliation is still pending. 4. Hypertension:?continue metoprolol. 5. Morbid obesity:? Advised to cut down calories and encouraged for weight loss.? Of note she had a gastric bypass surgery in the past too. 6. GERD: Continue omeprazole. 7. anxiety: care team eval. DVT prophylaxis:? xaralto need for inatient: aflutter Quality Stroke Does the patient have a stroke diagnosis?: No VTE Prior VTE?: No VTE Risk Level:: Medical - moderate - high VTE Device Contraindication: N/A - Device Ordered VTE Drug Contraindication: N/A - Med Ordered
[2021-11-07] MEDS: Metoprolol Tartrate 100 MG TABLET PO ×2 (09:36→20:23)
[2021-11-07] MEDS: Cholecalciferol (Vitamin D3) 25 MCG TABLET 50 MCG PO (09:36)
[2021-11-07] MEDS: FLUoxetine HCl 20 MG CAPSULE 40 MG PO (09:37)
[2021-11-07] MEDS: metFORMIN HCl ER 500 MG TAB.ER.24H 1000 MG PO ×2 (09:37→17:40)
[2021-11-07] MEDS: 0.9 % Sodium Chloride Flush 3 ML SYRINGE IVFLUSH ×2 (09:37→20:29)
[2021-11-07] MEDS: Multivitamin TABLET 1 TAB PO (09:37)
[2021-11-07] MEDS: Fluticasone Propionate Nasal 16 GM SPRAY NOSTRIL-B (10:12)
--- NOTE | 2021-11-07 11:27 | P.CONCA_ITS ---
History of Present Illness History of Present Illness Date of Service: 11/07/21 Requesting physician: Jessica Sandra Chief complaint: Atrial flutter Narrative: 55-year-old female who is known to have atrial flutter in the past presenting for palpitations. She had been treated with rate control strategy with metoprolol 100 mg twice a day. She was noticing some fatigue and leg cramping along with palpitations and decided to come to the emergency department where she was noted to be in atrial flutter with rapid response. She was given some Cardizem and then admitted. Currently heart rates are in 130s to 140s. She is denying palpitations right now. No orthopnea or PND. Clinically not in heart failure. She has been on Xarelto without any interruption in the last 4-6 weeks. [facility] Past Medical History Medical History Abdominal pain Anemia Arthritis Depression Diabetes Diabetes Essential hypertension GERD (gastroesophageal reflux disease) Hepatitis HTN (hypertension) Hypercholesteremia Lab test negative for COVID-19 virus Surgical History Surgical History Bariatric surgery status Hx of abdominal surgery Hx of section Hx of cholecystectomy Hx of dilation and curettage Hx of excision of mass Hx of gastric bypass Hx of reduction mammoplasty Hx of tubal ligation Social History Social History Household Members: Children Housing: Apartment Do you presently have visiting nurse or other home services: Yes ([employer]) Alcohol intake: never Patient Tobacco Use Status: Never used Tobacco e-Cigarette/Vaping Use: Never Used Advance Directives: No Advance Directives Information Provided: Yes service: No Current occupational status: disabled Current occupation: rt handed Meds Allergies Allergy/AdvReac Type Severity Reaction Status Date / Time No Known Allergies Allergy Verified 10/27/21 12:08 [No Known Allergies*] Active Medications: Current Medications Acetaminophen (Acetaminophen 325 Mg Tablet) 650 mg PO Q8H PRN PRN Reason: fever Alprazolam (Alprazolam 0.25 Mg Tablet) 0.25 mg PO ONCE ONE Stop: 11/07/21 11:22 Baclofen (Baclofen 10 Mg Tablet) 10 mg PO TID PRN PRN Reason: Spasms Diltiazem HCl (Diltiazem Hcl 30 Mg Tablet) 15 mg PO QID [facility]; Protocol Docusate Sodium (Docusate Sodium 100 Mg Capsule) 100 mg PO BID PRN PRN Reason: Constipation Fluoxetine HCl (Fluoxetine Hcl 20 Mg Capsule) 40 mg PO DAILY [facility] Last Admin: 11/07/21 09:37 Dose: 40 mg Documented by: Fluticasone Propionate (Fluticasone Propionate Nasal 16 Gm [place]) 1 - 2 spray NOSTRIL-B DAILY PRN PRN Reason: Allergy Symptoms Last Admin: 11/07/21 10:12 Dose: 1 spray Documented by: Insulin Glargine (Insulin Glargine,Hum.Rec.Anlog 100 Unit/Ml 10 Ml Vial) 10 unit SUBCUT BEDTIME [facility] Last Admin: 11/06/21 21:26 Dose: 10 unit Documented by: Insulin Human Lispro (Insulin Lispro 100 Unit/Ml 3 Ml Vial) 0 unit SUBCUT QIDACHS [facility]; Protocol Last Admin: 11/07/21 09:37 Dose: Not Given Documented by: Loratadine (Loratadine 10 Mg Tablet) 10 mg PO DAILY PRN PRN Reason: Allergy Symptoms Metformin HCl (Metformin Hcl Er 500 Mg Tab.Er.24h) 1,000 mg PO BIDWM [facility] Last Admin: 11/07/21 09:37 Dose: 1,000 mg Documented by: Metoprolol Tartrate (Metoprolol Tartrate 100 Mg Tablet) 100 mg PO BID [facility]; Protocol Last Admin: 11/07/21 09:36 Dose: 100 mg Documented by: Multivitamins/Vitamin C (Multivitamin Tablet) 1 tab PO DAILY [facility] Last Admin: 11/07/21 09:37 Dose: 1 tab Documented by: Omeprazole (Omeprazole 20 Mg Capsule.Dr) 20 mg PO DAILY@0630 [facility] Last Admin: 11/07/21 06:36 Dose: 20 mg Documented by: Pharmacy Consult (Consult Rx Perform Med Rec) 1 each MISCELLANE ONCE PRN PRN Reason: Consult order Rivaroxaban (Rivaroxaban 20 Mg Tablet) 20 mg PO DAILY@1700 [facility] Last Admin: 11/06/21 18:08 Dose: 20 mg Documented by: Senna (Sennosides 8.6 Mg Tablet) 17.2 mg PO BEDTIME PRN PRN Reason: constipation Sodium Chloride (0.9 % Sodium Chloride Flush 3 Ml Syringe) 3 ml IVFLUSH QSHIFT [facility] Last Admin: 11/07/21 09:37 Dose: 3 ml Documented by: Trazodone HCl (Trazodone Hcl 100 Mg Tablet) 200 mg PO BEDTIME PRN PRN Reason: Insomnia Vitamin D (Cholecalciferol (Vitamin D3) 25 Mcg Tablet) 50 mcg PO DAILY [facility] Last Admin: 11/07/21 09:36 Dose: 50 mcg Documented by: Home Medications Medication Instructions Recorded Confirmed Last Taken Type baclofen 10 mg tablet 10 mg PO TID PRN 04/29/20 11/06/21 Unknown History cholecalciferol (vitamin D3) 50 50 mcg PO DAILY 04/29/20 11/06/21 11/06/21 History mcg (2,000 unit) tablet (Vitamin D3) multivitamin 1 tab PO DAILY 04/29/20 11/06/21 11/06/21 History omeprazole 20 mg tablet,delayed 20 mg PO DAILY 04/29/20 11/06/21 11/06/21 History release acetaminophen 650 mg 1 tab PO Q8H PRN 10/22/21 11/06/21 Unknown History tablet,extended release docusate sodium 100 mg capsule 1 cap PO BID PRN 10/22/21 11/06/21 Unknown History fluoxetine 20 mg capsule 2 cap PO DAILY 10/22/21 11/06/21 11/06/21 History fluticasone propionate 50 1 - 2 spray INTRANASAL DAILY PRN 10/22/21 11/06/21 Unknown History mcg/actuation nasal spray,suspension metformin 500 mg tablet,extended 2 tab PO BID 10/22/21 11/06/21 11/06/21 History release 24 hr sennosides 8.6 mg tablet (senna) 2 tab PO BEDTIME PRN 10/22/21 11/06/21 Unknown History trazodone 100 mg tablet 2 tab PO BEDTIME PRN 10/22/21 11/06/21 Unknown History atorvastatin 80 mg tablet 80 mg PO BEDTIME 10/27/21 11/06/21 11/05/21 History insulin glargine 100 unit/mL (3 10 unit SUBCUT BEDTIME 11/06/21 11/06/2111/05 History mL) subcutaneous pen (Lantus Solostar U-100 Insulin) loratadine 10 mg tablet 1 tab PO DAILY PRN 11/06/21 11/06/21 Unknown History Physical Exam Vital Signs: Vital Signs: Last Vital Signs Temp 97.4 F 11/07/21 07:59 Pulse 75 11/07/21 07:59 Resp 20 11/07/21 07:59 BP 124/94 H 11/07/21 07:59 Pulse Ox 98 11/07/21 07:59 BMI result Body Mass Index 43.9 GENERAL APPEARANCE: in no acute distress, pleasant. NECK: no carotid bruit, no jugular venous distention. SKIN: no suspicious lesions, warm and dry. HEART: no murmurs, regular rate and rhythm. Tachycardic. LUNGS: clear to auscultation bilaterally. ABDOMEN: soft, nontender. EXTREMITIES: no edema. PERIPHERAL PULSES: equal. NEUROLOGIC: No gross deficits, AAO X 3 Objective Labs and Meds Result diagrams: 11/07/21 06:26 11/07/21 06:26 Lab results: Laboratory Results - last 24 hr 11/06/21 11/06/21 11/06/21 12:33 13:59 13:59 WBC RBC Hgb Hct MCV MCH MCHC RDW Plt Count MPV Absolute Nucleated RBC Nucleated RBC % (auto) Sodium Potassium Chloride Carbon Dioxide Anion Gap BUN Creatinine Estim Creat Clear Calc Estimated GFR POC Glucose Random Glucose Calcium Troponin I High Sens < 3.5 Urine Color Urine Appearance Urine pH Ur Specific Oral Urine Protein Urine Glucose (UA) Urine Ketones Urine Blood Urine Nitrite Ur Leukocyte Esterase Urine RBC Urine WBC Ur Squamous Epith Cells Urine Bacteria Respiratory Panel Rader See Note Adenovirus (Rapid PCR) Not Detected B.pert (TEM-PCR) Not Detected B.parapertussis DNA PCR Not Detected C. pneumoniae DNA (PCR) Not Detected Coronavirus OC43 (PCR) Not Detected Coronavirus HKU1 (PCR) Not Detected Coronavirus 229E (PCR) Not Detected COVID-19 (FRANC) Negative COVID-19 Clin Com See Note Coronavirus NL63 (PCR) Not Detected Human Metapneumovir PCR Not Detected Influenza A (RT-PCR) Not Detected Influenza B (RT-PCR) Not Detected M. pneumoniae (PCR) Not Detected Parainfluenza 1 (PCR) Not Detected Parainfluenza 2 (PCR) Not Detected Parainfluenza 3 (PCR) Not Detected Parainfluenza 4 (PCR) Not Detected RSV (PCR) Not Detected Entero/Rhino (PCR) Not Detected SARS-CoV-2 RNA (RT-PCR) Not Detected 11/06/21 11/06/21 11/06/21 14:12 18:16 19:49 WBC RBC Hgb Hct MCV MCH MCHC RDW Plt Count MPV Absolute Nucleated RBC Nucleated RBC % (auto) Sodium Potassium Chloride Carbon Dioxide Anion Gap BUN Creatinine Estim Creat Clear Calc Estimated GFR POC Glucose 114 199 H Random Glucose Calcium Troponin I High Sens Urine Color YELLOW Urine Appearance HAZY Urine pH 6.0 Ur Specific Oral >= 1.030 H Urine Protein NEG Urine Glucose (UA) NEG Urine Ketones NEG Urine Blood 1+ H Urine Nitrite POS H Ur Leukocyte Esterase NEG Urine RBC 1-4 Urine WBC 1-4 Ur Squamous Epith Cells 4+ Urine Bacteria 4+ Respiratory Panel Rader Adenovirus (Rapid PCR) B.pert (TEM-PCR) B.parapertussis DNA PCR C. pneumoniae DNA (PCR) Coronavirus OC43 (PCR) Coronavirus HKU1 (PCR) Coronavirus 229E (PCR) COVID-19 (FRANC) COVID-19 Clin Com Coronavirus NL63 (PCR) Human Metapneumovir PCR Influenza A (RT-PCR) Influenza B (RT-PCR) M. pneumoniae (PCR) Parainfluenza 1 (PCR) Parainfluenza 2 (PCR) Parainfluenza 3 (PCR) Parainfluenza 4 (PCR) RSV (PCR) Entero/Rhino (PCR) SARS-CoV-2 RNA (RT-PCR) 11/07/21 11/07/21 11/07/21 06:26 06:26 07:30 WBC 7.9 RBC 4.09 L Hgb 13.1 Hct 39.2 MCV 95.8 MCH 32.0 MCHC 33.4 RDW 12.3 Plt Count 348 MPV 9.5 Absolute Nucleated RBC 0.000 Nucleated RBC % (auto) 0.0 Sodium 142 Potassium 4.3 Chloride 106 Carbon Dioxide 26 Anion Gap 14 BUN 16 Creatinine 0.84 Estim Creat Clear Calc 87.9 Estimated GFR > 60 POC Glucose 120 H Random Glucose 116 H Calcium 10.0 Troponin I High Sens Urine Color Urine Appearance Urine pH Ur Specific Oral Urine Protein Urine Glucose (UA) Urine Ketones Urine Blood Urine Nitrite Ur Leukocyte Esterase Urine RBC Urine WBC Ur Squamous Epith Cells Urine Bacteria Respiratory Panel Rader Adenovirus (Rapid PCR) B.pert (TEM-PCR) B.parapertussis DNA PCR C. pneumoniae DNA (PCR) Coronavirus OC43 (PCR) Coronavirus HKU1 (PCR) Coronavirus 229E (PCR) COVID-19 (FRANC) COVID-19 Clin Com Coronavirus NL63 (PCR) Human Metapneumovir PCR Influenza A (RT-PCR) Influenza B (RT-PCR) M. pneumoniae (PCR) Parainfluenza 1 (PCR) Parainfluenza 2 (PCR) Parainfluenza 3 (PCR) Parainfluenza 4 (PCR) RSV (PCR) Entero/Rhino (PCR) SARS-CoV-2 RNA (RT-PCR) Assessment and Plan (1) Atrial flutter: Status: Acute Plan 5-year-old female who was known history of atrial flutter for which was prev iously being managed with rate control strategy presenting with palpitations. She has fairly fast response with flutter at this point. She is on 100 mg twice a day metoprolol. I have started digoxin load. She does not respond well to the then we will consider cardioversion on her. Please do not interrupts the Xarelto. She has been compliant with it and has not missed any doses in the last 6 weeks. If she continues to have for rate control then she may need cardioversion tomorrow. Please keep her NPO after midnight. Thank you for allowing me to participate in the care of your patient. Please feel free to contact me if you have any questions. Procedures Date of Service Date of Service: 11/07/21
[2021-11-07 11:59] LABS: Glucose, Whole Blood 178 mg/dL (60-115)
[2021-11-07 12:00] VITALS: BP 133/74; PULSE 61; RESP 20; TEMP 36.9; O2SAT 96
[2021-11-07] MEDS: ALPRAZolam 0.25 MG TABLET PO (12:02)
[2021-11-07] MEDS: Insulin Lispro 100 UNIT/ML 3 ML VIAL SUBCUT ×2 (12:02→20:24)
[2021-11-07] MEDS: Digoxin 0.5 MG/2 ML AMPUL IVPUSH (13:50)
[2021-11-07 16:00] VITALS: BP 136/85; PULSE 89; RESP 18; TEMP 36.7; O2SAT 98
--- NOTE | 2021-11-07 16:02 | MHC.CM.PN ---
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
[2021-11-07 16:07] LABS: Glucose, Whole Blood 110 mg/dL (60-115)
[2021-11-07] MEDS: Rivaroxaban 20 MG TABLET PO (17:39)
[2021-11-07] MEDS: Digoxin 0.5 MG/2 ML AMPUL 0.25 MG IVPUSH (18:20)
[2021-11-07 19:32] VITALS: BP 146/79; PULSE 72; RESP 18; TEMP 37.1; O2SAT 97
[2021-11-07 19:37] LABS: Glucose, Whole Blood 175 mg/dL (60-115)
[2021-11-07] MEDS: Insulin Glargine,Hum.rec.anlog 100 UNIT/ML 10 ML VIAL 10 UNIT SUBCUT (20:24)
[2021-11-07 23:49] VITALS: BP 127/62; PULSE 75; RESP 20; TEMP 37.1; O2SAT 100
[2021-11-08] MEDS: Digoxin 0.5 MG/2 ML AMPUL 0.25 MG IVPUSH (00:21)
[2021-11-08 03:48] VITALS: BP 139/60; PULSE 71; RESP 20; TEMP 36.8; O2SAT 98
[2021-11-08] MEDS: Omeprazole 20 MG CAPSULE.DR PO (05:29)
[2021-11-08 07:43] VITALS: BP 129/71; PULSE 77; RESP 18; TEMP 36.7; O2SAT 99
--- NOTE | 2021-11-08 08:03 | HO.PM.IMPN ---
Subjective Subjective Date of Service: 11/08/21 Interval History: a flutter Physical Exam Vital Signs: Vital Signs: Last Vital Signs Temp 98.0 F 11/08/21 07:43 Pulse 77 11/08/21 07:43 Resp 18 11/08/21 07:43 BP 129/71 11/08/21 07:43 Pulse Ox 99 11/08/21 07:43 BMI result Body Mass Index 43.9 Objective Data Active Medications Acetaminophen (Acetaminophen 325 Mg Tablet) 650 mg PO Q8H PRN PRN Reason: fever Baclofen (Baclofen 10 Mg Tablet) 10 mg PO TID PRN PRN Reason: Spasms Docusate Sodium (Docusate Sodium 100 Mg Capsule) 100 mg PO BID PRN PRN Reason: Constipation Fluoxetine HCl (Fluoxetine Hcl 20 Mg Capsule) 40 mg PO DAILY [facility] Last Admin: 11/07/21 09:37 Dose: 40 mg Documented by: ROBERT Fluticasone Propionate (Fluticasone Propionate Nasal 16 Gm [place]) 1 - 2 spray NOSTRIL-B DAILY PRN PRN Reason: Allergy Symptoms Last Admin: 11/07/21 10:12 Dose: 1 spray Documented by: ROBERT Insulin Glargine (Insulin Glargine,Hum.Rec.Anlog 100 Unit/Ml 10 Ml Vial) 10 unit SUBCUT BEDTIME [facility] Last Admin: 11/07/21 20:24 Dose: 10 unit Documented by: LIZ Insulin Human Lispro (Insulin Lispro 100 Unit/Ml 3 Ml Vial) 0 unit SUBCUT QIDACHS [facility]; Protocol Last Admin: 11/07/21 20:24 Dose: 2 unit Documented by: LIZ Loratadine (Loratadine 10 Mg Tablet) 10 mg PO DAILY PRN PRN Reason: Allergy Symptoms Metformin HCl (Metformin Hcl Er 500 Mg Tab.Er.24h) 1,000 mg PO BIDWM [facility] Last Admin: 11/07/21 17:40 Dose: 1,000 mg Documented by: ROBERT Metoprolol Tartrate (Metoprolol Tartrate 100 Mg Tablet) 100 mg PO BID [facility]; Protocol Last Admin: 11/07/21 20:23 Dose: 100 mg Documented by: LIZ Multivitamins/Vitamin C (Multivitamin Tablet) 1 tab PO DAILY [facility] Last Admin: 11/07/21 09:37 Dose: 1 tab Documented by: ROBERT Omeprazole (Omeprazole 20 Mg Capsule.) 20 mg PO DAILY@0630 [facility] Last Admin: 11/08/21 05:29 Dose: 20 mg Documented by: LIZ Pharmacy Consult (Consult Rx Perform Med Rec) 1 each MISCELLANE ONCE PRN PRN Reason: Consult order Rivaroxaban (Rivaroxaban 20 Mg Tablet) 20 mg PO DAILY@1700 [facility] Last Admin: 11/07/21 17:39 Dose: 20 mg Documented by: ROBERT Senna (Sennosides 8.6 Mg Tablet) 17.2 mg PO BEDTIME PRN PRN Reason: constipation Sodium Chloride (0.9 % Sodium Chloride Flush 3 Ml Syringe) 3 ml IVFLUSH QSHIFT [facility] Last Admin: 11/07/21 20:29 Dose: 3 ml Documented by: LIZ Trazodone HCl (Trazodone Hcl 100 Mg Tablet) 200 mg PO BEDTIME PRN PRN Reason: Insomnia Vitamin D (Cholecalciferol (Vitamin D3) 25 Mcg Tablet) 50 mcg PO DAILY [facility] Last Admin: 11/07/21 09:36 Dose: 50 mcg Documented by: ROBERT Labs CBC & Chem 7: 11/07/21 06:26 11/07/21 06:26 Labs: Laboratory Results - last 24 hr 11/07/21 11/07/21 11/07/21 11:37 16:03 19:34 POC Glucose 178 H 110 175 H Microbiology Microbiology Results: Microbiology 11/06/21 14:17 Urine Culture - Final Urine clean catch - Urine deleon top Escherichia coli Assessment and Plan (1) Atrial fibrillation: Status: Acute (2) Diabetes: Status: Acute Plan 55-year-old female who came with palpitation and generalized weakness, diabetic and hypertensive but not compliance with medication-getting admitted for a flutter and uncontrolled diabetes. 1. Atrial flutter Patient had palpitations, chest tightness ,hr increase even with sitting 1 troponin negative, 2nd tropon neg,intial ekg aflutter 2:1 TSH normal last admission Monitor on tele continue metoprolol and d/w cardio-added digoxinloading cardio eval pending 2.? diabetes:? continue? hfingerstick with sliding scale coverage,home regimen. 3.HLP:? Continue home medication medical reconciliation is still pending. 4. Hypertension:?continue metoprolol. 5. Morbid obesity:? Advised to cut down calories and encouraged for weight loss.? Of note she had a gastric bypass surgery in the past too. 6. GERD: Continue omeprazole. 7. anxiety: care team eval. DVT prophylaxis:? xaralto need for inatient: aflutter Quality Stroke Does the patient have a stroke diagnosis?: No VTE Prior VTE?: No VTE Risk Level:: Medical - moderate - high VTE Device Contraindication: N/A - Device Ordered VTE Drug Contraindication: N/A - Med Ordered
[2021-11-08 08:45] LABS: Glucose, Whole Blood 110 mg/dL (60-115)
[2021-11-08] MEDS: Cholecalciferol (Vitamin D3) 25 MCG TABLET 50 MCG PO (09:02)
[2021-11-08] MEDS: FLUoxetine HCl 20 MG CAPSULE 40 MG PO (09:02)
[2021-11-08] MEDS: Multivitamin TABLET 1 TAB PO (09:02)
[2021-11-08] MEDS: Metoprolol Tartrate 100 MG TABLET PO (09:02)
[2021-11-08] MEDS: 0.9 % Sodium Chloride Flush 3 ML SYRINGE IVFLUSH (09:03)
--- NOTE | 2021-11-08 09:51 | PM.PNCARD ---
Subjective Subjective Date of Service: 11/08/21 Principal diagnosis: Atrial flutter Interval history: Patient came in with symptomatic atrial flutter. Currently rate is controlled in 70s after IV digoxin. Does confusion as outpatient regarding her digoxin dosing. She has no other current symptoms. She has only been on oral anticoagulation for about 2 weeks. Review of Systems Constitutional: Reports no additional constitutional complaints Cardiovascular: Denies chest pain, Reports irregular heart rhythm, Denies lightheadedness, Denies Loss of Consciousness and Denies dyspnea Respiratory: Reports no additional respiratory complaints and Denies dyspnea Gastrointestinal: Reports no additional gastrointestinal complaints Skin/Breast: Reports system reviewed and no additional complaints, except as docu Reports system reviewed and no additional complaints, except as documented Psychiatric: Reports no additional psychiatric complaints Endocrine: Reports no additional endocrine complaints Physical Exam Vital Signs: Last Vital Signs Temp 98.0 F 11/08/21 07:43 Pulse 77 11/08/21 07:43 Resp 18 11/08/21 07:43 BP 129/71 11/08/21 07:43 Pulse Ox 99 11/08/21 07:43 BMI result Body Mass Index 43.9 Const General: cooperative, comfortable, no acute distress, alert and awake Nutritional Appearance: obese Orientation/consciousness: patient oriented x3 Neck Neck: Yes trachea midline, Yes supple and Yes no JVD Resp Effort & Inspection: normal respiratory effort Auscultation: clear to auscultation bilaterally Cardio Jugular venous distension: no JVD Rhythm: abnormal rhythm irregularly irregular Heart sounds: S1 normal heart sound present and S2 normal heart sound present GI Auscultation: normal bowel sounds Skin General skin exam: no rashes or lesions noted Neuro General: patient oriented x3 and no focal motor deficits Extrem General: Yes no clubbing, cyanosis or edema Objective Labs and Meds Result diagrams: 11/07/21 06:26 11/07/21 06:26 Lab results: Laboratory Results - last 24 hr 11/07/21 11/07/21 11/07/21 11:37 16:03 19:34 POC Glucose 178 H 110 175 H 11/08/21 08:38 POC Glucose 110 Progress Note: A&P Assessment and plan (1) Atrial flutter: Status: Acute Assessment and Plan: Symptomatic atrial flutter on presentation with symptoms of palpitation. No signs or symptoms of heart failure. Patient's rate is controlled with initiation digoxin. She remains mildly symptomatic at this point time. No signs or symptoms of heart failure. There is no current indication for urgent cardioversion. She has only been on oral anticoagulation for about 2 weeks. Will schedule for outpatient synchronized cardioversion next Monday. She has mild LV systolic dysfunction will pursue ischemic workup as outpatient. Patient can be discharged home today on metoprolol 100 mg b.i.d. and digoxin 0.25 mg daily. The management was discussed with help of a certified natural resources technician. Patient can be discharged home today. Time Spent With Patient Time: Total time spent is greater than 50% in coordination of care (as documented) at patient's floor/unit and/or counseling patient: Progress Note: Quality Stroke Does the patient have a stroke diagnosis?: No Procedures Date of Service Date of Service: 11/08/21
[2021-11-08] MEDS: Digoxin 0.25 MG TABLET PO (11:07)
--- NOTE | 2021-11-08 11:07 | MHC.CM.PN ---
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
[2021-11-08 11:30] VITALS: BP 152/84; PULSE 77; RESP 18; TEMP 36.8; O2SAT 100
--- NOTE | 2021-11-08 11:31 | P.DS_ITS ---
DS: Providers Provider Date of Service: 11/08/21 Date of admission: 11/06/21 13:52 Primary care physician: Cynthia Carson DO Consults: 11/06/21 14:09 Consult to Cardiology Routine Consulting Provider: Hugh Nguyen Reason for consultation: aflutter Has provider been notified: No Consult to Care Team Routine Comment: Reason for consultation: anxiety DS: Diagnosis Discharge Diagnosis (1) Atrial flutter: Status: Acute DS: Summary Hospital Course Hospital Course: 55-year-old female who has history of a flutter new onset recently discharged on p.o. metoprolol/the Xarelto:? Patient coming back she says she has few days feeling palpitations and some chest tightness also on top of that gets easily tired and short of breath with exertion.? She is not great historian but also has some anxiety going on the background but does not want to talk about it, she thinks that it might have been contributing to above. Patient was in ED is received IV metoprolol for artery flutter, also given p.o. metoprolol heart rate is running from 100-110 range with s resting and with sitting her heart rate goes into 130-140range she failed tired. Denies any abdominal pain or nausea or vomiting or diarrhea or fever Feel chills Denies any cough or phlegm or any urinary complaints. Seem anxious.? Could not get more information since very emotional with each stance sentence . hospital course: Patient came with a flutter-given iv metoprolol , switched to po metoprolol and added digoxin : Heart rate seems to be improved, seen by Cardiology since patient improved patient going to go home with p.o. metoprolol and digoxin continue Xarelto. Cardio may arrange outpatient cardioversion appointment. Monitor BMP and digoxin level with PCP in 1 week. Further management outpatient as per PCP. Above was discussed with the patient in detail length with the site interpreter. She understand and in agreement with above plan. Time Spent with Patient Time attestation: Total time spent providing and/or coordinating discharge services: Discharge coordination time: Greater than 30 minutes Quality: Safe Use of Opioids Does Pt have an Active Cancer Diagnosis on the Problem List?: No Quality: Stroke Does the patient have a stroke diagnosis?: No Physical Exam Vital Signs: Vital Signs: Last Vital Signs Temp 98.0 F 11/08/21 07:43 Pulse 77 11/08/21 07:43 Resp 18 11/08/21 07:43 BP 129/71 11/08/21 07:43 Pulse Ox 99 11/08/21 07:43 BMI result Body Mass Index 43.9 Appearance: Alert.? Oriented X3.? not in distress.? cvs: irregular rythem, [id number] . res: clear to auscultation ,no rhonchii or wheezing abd: no rebound or guarding ,nt, bs present. ext pulses present , no cyanosis . neuro: axo3 , nonfocal. DS: Data Data Completed and Pending Labs on day of discharge: Laboratory Results - last 24 hr 11/07/21 11/07/21 11/07/21 11:37 16:03 19:34 POC Glucose 178 H 110 175 H 11/08/21 08:38 POC Glucose 110 Laboratory Results - last 24 hr ? 11/06/21 11/06/21 11/06/21 ? 09:31 09:32 09:32 MCV ? ?94.3 ? MCH ? ?31.9 ? MCHC ? ?33.9 ? RDW ? ?12.2 ? Plt Count ? ?376? D ? D MPV ? ?8.9 L ? Immature Gran % (Auto) ? ?0.2 ? Neut % (Auto) ? ?64.1 ? Lymph % (Auto) ? ?28.6 ? [place] % (Auto) ? ?6.2 ? Eos % (Auto) ? ?0.6 ? Baso % (Auto) ? ?0.3 ? Lymph # (Auto) ? ?2.6 ? [place] # (Auto) ? ?0.6 ? Eos # (Auto) ? ?0.1 ? Baso # (Auto) ? ?0.0 ? Abs Immat Gran (auto) ? ?0.02 ? Absolute Neuts (auto) ? ?5.8 ? Absolute Nucleated RBC ? ?0.000 ? Nucleated RBC % (auto) ? ?0.0 ? Anion Gap ?14 ? ? Estim Creat Clear Calc ?91.1 ? ? Estimated GFR ?> 60 ? ? POC Glucose ? ? ? Random Glucose ?139 H ? ? Calcium ?9.7 ? ? Troponin I High Sens ? ? ?< 3.5? D B-Natriuretic Peptide ? ? ?135 H Urine Color ? ? ? Urine Appearance ? ? ? Urine pH ? ? ? Ur Specific [place] ? ? ? Urine Protein ? ? ? Urine Glucose (UA) ? ? ? Urine Ketones ? ? ? Urine Blood ? ? ? Urine Nitrite ? ? ? Ur Leukocyte Esterase ? ? ? Urine RBC ? ? ? Urine WBC ? ? ? Ur Squamous Epith Cells ? ? ? Urine Bacteria ? ? ? Respiratory Panel Rader ? ? ? Adenovirus (Rapid PCR) ? ? ? B.pert (TEM-PCR) ? ? ? B.parapertussis DNA PCR ? ? ? C. pneumoniae DNA (PCR) ? ? ? Coronavirus OC43 (PCR) ? ? ? Coronavirus HKU1 (PCR) ? ? ? Coronavirus 229E (PCR) ? ? ? COVID-19 (FRANC) ? ? ? COVID-19 Clin Com ? ? ? Coronavirus NL63 (PCR) ? ? ? Human Metapneumovir PCR ? ? ? Influenza A (RT-PCR) ? ? ? Influenza B (RT-PCR) ? ? ? M. pneumoniae (PCR) ? ? ? Parainfluenza 1 (PCR) ? ? ? Parainfluenza 2 (PCR) ? ? ? Parainfluenza 3 (PCR) ?B ? ? Parainfluenza 4 (PCR) ? ? ? RSV (PCR) ? ? ? Entero/Rhino (PCR) ? ? ? SARS-CoV-2 RNA (RT-PCR) ? 11/06/21 11/06/21 11/06/21 ? 12:33 13:59 13:59 MCV ? ? ? MCH ? ? ? MCHC ? ? ? RDW ? ? ? Plt Count ? ? ? MPV ? ? ? Immature Gran % (Auto) ? ? ? Neut % (Auto) ? ? ? Lymph % (Auto) ? ? ? [place] % (Auto) ? ? ? Eos % (Auto) ? ? ? Baso % (Auto) ? ? ? Lymph # (Auto) ? ? ? [place] # (Auto) ? ? ? Eos # (Auto) ? ? ? Baso # (Auto) ? ? ? Abs Immat Gran (auto) ? ? ? Absolute Neuts (auto) ? ? ? Absolute Nucleated RBC ? ? ? Nucleated RBC % (auto) ? ? ? Anion Gap ? ? ? Estim Creat Clear Calc ? ? ? Estimated GFR ? ? ? POC Glucose ? ? ? Random Glucose ? ? ? Calcium ? ? ? Troponin I High Sens ? ?< 3.5 ? B-Natriuretic Peptide ? ? ? Urine Color ? ? ? Urine Appearance ? ? ? Urine pH ? ? ? Ur Specific [place] ? ? ? Urine Protein ? ? ? Urine Glucose (UA) ? ? ? Urine Ketones ? ? ? Urine Blood ? ? ? Urine Nitrite ? ? ? Ur Leukocyte Esterase ? ? ? Urine RBC ? ? ? Urine WBC ? ? ? Ur Squamous Epith Cells ? ? ? Urine Bacteria ? ? ? Respiratory Panel Rader ? ? ?See Note Adenovirus (Rapid PCR) ? ? ?Not Detected B.pert (TEM-PCR) ? ? ?Not Detected B.parapertussis DNA PCR ? ? ?Not Detected C. pneumoniae DNA (PCR) ? ? ?Not Detected Coronavirus OC43 (PCR) ? ? ?Not Detected Coronavirus HKU1 (PCR) ? ? ?Not Detected Coronavirus 229E (PCR) ? ? ?Not Detected COVID-19 (FRANC) ?Negative ? ? COVID-19 Clin Com ?See Note ? ? Coronavirus NL63 (PCR) ? ? ?Not Detected Human Metapneumovir PCR ? ? ?Not Detected Influenza A (RT-PCR) ? ? ?Not Detected Influenza B (RT-PCR) ? ? ?Not Detected M. pneumoniae (PCR) ? ? ?Not Detected Parainfluenza 1 (PCR) ? ? ?Not Detected Parainfluenza 2 (PCR) ? ? ?Not Detected Parainfluenza 3 (PCR) ? ? ?Not Detected Parainfluenza 4 (PCR) ? ? ?Not Detected RSV (PCR) ? ? ?Not Detected Entero/Rhino (PCR) ? ? ?Not Detected SARS-CoV-2 RNA (RT-PCR) ? ? ?Not Detected ? 11/06/21 11/06/21 11/06/21 ? 14:12 18:16 19:49 MCV ? ? ? MCH ? ? ? MCHC ? ? ? RDW ? ? ? Plt Count ? ? ? MPV ? ? ? Immature Gran % (Auto) ? ? ? Neut % (Auto) ? ? ? Lymph % (Auto) ? ? ? D [place] % (Auto) ? ? ? Eos % (Auto) ? ? ? Baso % (Auto) ? ? ? Lymph # (Auto) ? ? ? [place] # (Auto) ? ? ? Eos # (Auto) ? ? ? Baso # (Auto) ? ? ? Abs Immat Gran (auto) ? ? ? Absolute Neuts (auto) ? ? ? Absolute Nucleated RBC ? ? ? Nucleated RBC % (auto) ? ? ? Anion Gap ? ? ? Estim Creat Clear Calc ? ? ? Estimated GFR ? ? ? POC Glucose ? ?114 ?199 H Random Glucose ? ? ? Calcium ? ? ? Troponin I High Sens ? ? ? B-Natriuretic Peptide ? ? ? Urine Color ?YELLOW ? ? Urine Appearance ?HAZY ? ? Urine pH ?6.0 ? ? Ur Specific [place] ?>= 1.030 H ? ? Urine Protein ?NEG ? ? Urine Glucose (UA) ?NEG ? ? Urine Ketones ?NEG ? ? Urine Blood ?1+ H ? ? Urine Nitrite ?POS H ? ? Ur Leukocyte Esterase ?NEG ? ? Urine RBC ?1-4 ? ? Urine WBC ?1-4 ? ? Ur Squamous Epith Cells ?4+ ? ? Urine Bacteria ?4+ ? ? Respiratory Panel Rader ? ? ? Adenovirus (Rapid PCR) ? ? ? B.pert (TEM-PCR) ? ? ? B.parapertussis DNA PCR ? ? ? C. pneumoniae DNA (PCR) ? ? ? Coronavirus OC43 (PCR) ? ? ? Coronavirus HKU1 (PCR) ? ? ? Coronavirus 229E (PCR) ? ? ? COVID-19 (FRANC) ? ? ? COVID-19 Clin Com ? ? ? Coronavirus NL63 (PCR) ? ? ? Human Metapneumovir PCR ? ? ? Influenza A (RT-PCR) ? ? ? Influenza B (RT-PCR) ? ? ? M. pneumoniae (PCR) ? ? ? Parainfluenza 1 (PCR) ? ? ? Parainfluenza 2 (PCR) ? ? ? Parainfluenza 3 (PCR) ? ? ? Parainfluenza 4 (PCR) ? ? ? RSV (PCR) ? ? ? Entero/Rhino (PCR) ? ? ? SARS-CoV-2 RNA (RT-PCR) ? 11/07/21 11/07/21 11/07/21 ? 06:26 06:26 07:30 MCV ?95.8 ? ? MCH ?32.0 ? ? MCHC ?33.4 ? ? RDW ?12.3 ? ? Plt Count ?348 ? ? MPV ?9.5 ? ? Immature Gran % (Auto) ? ? ? Neut % (Auto) ? ? ? Lymph % (Auto) ? ? ? [place] % (Auto) ? ? ? Eos % (Auto) ? ? ? Baso % (Auto) ? ? ? Lymph # (Auto) ? ? ? [place] # (Auto) ? ? ? Eos # (Auto) ? ? ? Baso # (Auto) ? ? ? Abs Immat Gran (auto) ? ? ? Absolute Neuts (auto) ? ? ? Absolute Nucleated RBC ?0.000 ? ? Nucleated RBC % (auto) ?0.0 ? ? Anion Gap ? ?14 ? Estim Creat Clear Calc ? ?87.9 ? Estimated GFR ? ?> 60 ? POC Glucose ? ? ?120 H Random Glucose ?B ?116 H ? Calcium ? ?10.0 Discharge Plan Discharge Patient Disposition: Home, Self-Care Discharge Diagnosis: aflutter Referrals: Cynthia Carson DO [Primary Care Provider] - 1 Week Discharge Medications: New digoxin [Digox] 250 mcg (0.25 mg) tablet 250 mcg PO DAILY Qty: 30 0RF cefuroxime axetil 250 mg tablet 250 mg PO Q12H Qty: 14 0RF Continued multivitamin Tablet 1 tab PO DAILY 0RF baclofen 10 mg Tablet 10 mg PO TID PRN (Reason: Spasms) 0RF omeprazole 20 mg Tablet,Delayed Release (Dr/Ec) 20 mg PO DAILY 0RF cholecalciferol (vitamin D3) [Vitamin D3] 50 mcg (2,000 unit) Tablet 50 mcg PO DAILY 0RF loratadine 10 mg tablet 1 tab PO DAILY PRN (Reason: Allergy Symptoms) 0RF Lantus Solostar U-100 Insulin 100 unit/mL (3 mL) insulin pen 10 unit SUBCUT BEDTIME 0RF sennosides [senna] 8.6 mg tablet 2 tab PO BEDTIME PRN (Reason: constipation) 0RF acetaminophen 650 mg tablet extended release 1 tab PO Q8H PRN (Reason: fever) 0RF docusate sodium 100 mg capsule 1 cap PO BID PRN (Reason: Constipation) 0RF trazodone 100 mg tablet 2 tab PO BEDTIME PRN (Reason: Insomnia) 0RF fluoxetine 20 mg capsule 2 cap PO DAILY 0RF fluticasone propionate 50 mcg/actuation spray,suspension 1 - 2 spray intranasal DAILY PRN (Reason: Allergy Symptoms) 0RF metformin 500 mg tablet extended release 24 hr 2 tab PO BID 0RF Xarelto 20 mg Tablet 20 mg PO DAILY@1700 Qty: 30 0RF metoprolol tartrate 100 mg tablet 100 mg PO BID Qty: 60 0RF alcohol swabs Pads, Medicated 1 pad TOPICAL QIDACHS Qty: 100 0RF Rx Instructions: Use four times a day or as directed. insulin lispro [Humalog KwikPen Insulin] 100 unit/mL Insulin Pen 1 sliding scale dose SUBCUT QIDACHS Qty: 15 0RF Rx Instructions: Blood Sugar: <150 - 0 units 151-200 - 2 units 201-250 - 4 units 251-300 - 6 units 301-350 - 8 units >350 - 10 units (DME) pen needle, diabetic 32 gauge x 1/4 Needle Qty: 100 0RF Rx Instructions: Use four times a day or as directed. atorvastatin 80 mg tablet 80 mg PO BEDTIME 0RF Discharge Orders: Discharge Order (Routine); Ordered 11/08/21 Ordered By: Jessica Sandra Diet: advance to usual diet Activity on Discharge: As tolerated Stand Alone Forms: Patient Portal Discharge page Care Plan Goals: Patient came with a flutter-given iv metoprolol , switched to po metoprolol and added digoxin : Heart rate seems to be improved, seen by Cardiology since patient improved patient going to go home with p.o. metoprolol and digoxin continue Xarelto. Cardio may arrange outpatient cardioversion appointment. UTI-please complete the antibiotic course. Monitor BMP and digoxin level with PCP in 1 week. Further management outpatient as per PCP. Above was discussed with the patient in detail length with the site interpreter. She understand and in agreement with above plan. Health Concerns: as above. Plan of Treatment: as above. Assessment: As above.
[2021-11-08 11:41] LABS: Glucose, Whole Blood 186 mg/dL (60-115)
== END 2021-11-08 12:41 | disposition home or self-care (01) ==
LOC: HO.ED 10:09 → HO.EDOVER 14:46 → HO.IMC 16:07
PROVIDERS: Admitting Provider Internal Medicine; Emergency Provider Emergency Medicine Emergency Medical Services; PCP Family Medicine; Visit Provider Internal Medicine
DX: I48.92 Unspecified atrial flutter (principal); I48.91 Unspecified atrial fibrillation; R94.31 Abnormal electrocardiogram [ECG] [EKG]; R00.2 Palpitations; R53.83 Other fatigue; R25.2 Cramp and spasm; E11.9 Type 2 diabetes mellitus without complications; I10 Essential (primary) hypertension; E78.5 Hyperlipidemia, unspecified; E78.00 Pure hypercholesterolemia, unspecified; E66.01 Morbid (severe) obesity due to excess calories; K21.9 Gastro-esophageal reflux disease without esophagitis; F41.8 Other specified anxiety disorders; Z68.41 Body mass index [BMI] 40.0-44.9, adult; Z20.822 Contact with and (suspected) exposure to COVID-19; Z90.49 Acquired absence of other specified parts of digestive tract; Z98.84 Bariatric surgery status; Z79.02 Long term (current) use of antithrombotics/antiplatelets; Z79.4 Long term (current) use of insulin; Z79.899 Other long term (current) drug therapy
CPT/HCPCS: 36415; 80048; 81001; 82947; 83880; 84484; 85025; 85027; 87086; 87088; 87186; 87633; 87635; 93005; 96374; 99219; 99285; J1160

== ENCOUNTER 2021-11-13 14:28 | Inpatient (IN) | payer MEDICARE, MEDICAID, SELFPAY ==
--- NOTE | ~2021-11-13 | XR_ITS ---
EXAMINATION: XR CHEST CLINICAL INFORMATION: Chest pain COMPARISON: 10/22/2021 TECHNIQUE: Frontal view of the chest was obtained. FINDINGS: No significant abnormality is noted involving the heart, lungs, mediastinum, bony thorax or soft tissues. XR/XR chest 1V IMPRESSION: Unremarkable examination.
--- NOTE | 2021-11-13 14:29 | ECG_ITS ---
Test Reason : CHEST PAIN Blood Pressure : / mmHG Vent. Rate : 149 BPM Atrial Rate : 298 BPM P-R Int : 000 ms QRS Dur : 100 ms QT Int : 294 ms P-R-T Axes : 000 002 151 degrees QTc Int : 463 ms Atrial flutter with 2:1 A-V conduction Left ventricular hypertrophy with repolarization abnormality ( R in aVL ) Abnormal ECG When compared with ECG of 06-NOV-2021 09:13, ST now depressed in Lateral leads Nonspecific T wave abnormality no longer evident in Inferior leads Inverted T waves have replaced nonspecific T wave abnormality in Lateral leads Referred By: Generic ED Physician Electronically Signed By:ADIS ERICKSON MD
[2021-11-13 14:40] VITALS: BP 150/91; PULSE 140; RESP 20; TEMP 36.1; O2SAT 94; BMI 38.5
[2021-11-13 15:31] VITALS: BP 145/84; PULSE 66; RESP 16; TEMP 36.9; O2SAT 98
[2021-11-13 15:46] LABS: MANUAL DIFF FLAG NO
[2021-11-13 15:50] LABS: Basophils Percent Auto 0.3 % (0-2); Eosinophils Absolute Auto 0.1 X10*3/uL (0.0-0.4); Eosinophils Percent Auto 0.8 % (0-4); Hematocrit 36.9 % (37.0-47.0); Hemoglobin 12.5 g/dl (12.0-16.0); Imm Gran Abs Auto 0.03 X10*3/uL (0.00-0.03); Imm Gran Pct Auto 0.3 % (0.0-0.4); Lymphocytes Absolute Auto 2.4 X10*3/uL (1.2-4.9); Lymphocytes Percent Auto 25.1 % (20-40); Mean Corpuscular HGB Conc 33.9 g/dl (31.0-35.0); Mean Corpuscular Hemoglobin 32.2 pg (27.0-33.0); Mean Corpuscular Volume 95.1 fL (80.0-98.0); Monocytes Absolute Auto 0.7 X10*3/uL (0.1-1.2); Monocytes Percent Auto 7.5 % (2-11); Neutrophils Absolute Auto 6.4 x10*3/uL (2.0-8.3); Platelet Count 316 X10*3/uL (160-400); Red Blood Count 3.88 X10*6/uL (4.20-5.50); Red Cell Distribution Width 12.4 % (11.0-16.0); White Blood Count 9.7 X10*3/uL (4.8-10.8)
[2021-11-13 16:10] LABS: Alanine Aminotransferase 21 U/L (0-31); Albumin Level 4.1 g/dL (3.5-5.0); Alkaline Phosphatase 89 U/L (39-117); Anion Gap 15 (12-20); Aspartate Amino Transferase 19 U/L (5-31); Bilirubin Total 0.5 mg/dL (0.0-1.0); Blood Urea Nitrogen 17 mg/dL (9-16); Calcium 10.3 mg/dL (8.4-10.2); Carbon Dioxide 22 mmol/L (22-29); Chloride 109 mmol/L (96-108); Estimated Glomerular Filt Rate > 60; Glucose Random 141 mg/dL (60-115); Magnesium 1.4 mg/dL (1.6-2.6); Potassium 4.4 mmol/L (3.3-5.1); Sodium 142 mmol/L (135-145); Total Protein 7.3 g/dL (6.5-8.0)
--- NOTE | 2021-11-13 16:10 | ED.CHESTPAIN ---
HPI - Chest Pain General Chief Complaint: Chest Pain Stated Complaint: chest pain Time Seen by Provider: 11/13/21 15:24 Source: patient and family Mode of arrival: ambulatory Limitations: language barrier ( Guyanese-speaking) History of Present Illness HPI narrative: 55-year-old female who was recently admitted here on 11/06/21 diagnosed with atrial flutter currently started on metoprolol and Xarelto taking as prescribed, HTN, HLD, DM, Hepatitis, GERD, anemia and depression presenting to the ED with complaints of sudden onset of shortness of breath/left-sided chest discomfort with feeling like her heart was racing that occurred a few hours prior to arrival. She reports that the shortness of breath has completely resolved although she still has mild left-sided chest discomfort. She feels like her heart is racing Intermittently. She denies any fevers, chills, dizziness, changes in vision, headaches, neck pain /stiffness, cough, dyspnea on exertion, orthopnea, palpitations, paresthesias, nausea/ vomiting /diarrhea, abdominal pain, dysuria, constipation, rashes, black or bloody stools, recent travel or sick contacts or any other symptoms complaints or concerns at this time. MD complaint: chest discomfort Pertinent past history: other ( See above) Onset (ago): hour(s) ( prior to arrival) Timing of current episode: episodic Prior episodes: Yes Onset: during rest Pain location: left chest Pain radiation: none Severity: mild Quality: aching Relieving factors: nothing Exacerbating factors: nothing Context: other ( history of atrial flutter) Associated symptoms: palpitations Treatment prior to arrival: none Risk Factors Coronary artery disease risk factors: hyperlipidemia and hypertension Thoracic aortic dissection risk factors: none Related Data Home Medications Medication Instructions Recorded Confirmed baclofen 10 mg tablet 10 mg PO TID PRN 04/29/20 11/13/21 cholecalciferol (vitamin D3) 50 50 mcg PO DAILY 04/29/20 11/13/21 mcg (2,000 unit) tablet (Vitamin D3) multivitamin 1 tab PO DAILY 04/29/20 11/13/21 omeprazole 20 mg tablet,delayed 20 mg PO DAILY 04/29/20 11/13/21 release acetaminophen 650 mg 1 tab PO Q8H PRN 10/22/21 11/13/21 tablet,extended release docusate sodium 100 mg capsule 1 cap PO BID PRN 10/22/21 11/13/21 fluoxetine 20 mg capsule 2 cap PO DAILY 10/22/21 11/13/21 fluticasone propionate 50 1 - 2 spray INTRANASAL DAILY PRN 10/22/21 11/13/21 mcg/actuation nasal spray,suspension metformin 500 mg tablet,extended 2 tab PO BID 10/22/21 11/13/21 release 24 hr sennosides 8.6 mg tablet (senna) 2 tab PO BEDTIME PRN 10/22/21 11/13/21 trazodone 100 mg tablet 2 tab PO BEDTIME PRN 10/22/21 11/13/21 atorvastatin 80 mg tablet 80 mg PO BEDTIME 10/27/21 11/13/21 insulin glargine 100 unit/mL (3 10 unit SUBCUT BEDTIME 11/06/21 11/13/21 mL) subcutaneous pen (Lantus Solostar U-100 Insulin) loratadine 10 mg tablet 1 tab PO DAILY PRN 11/06/21 11/13/21 Previous Rx's Medication Instructions Recorded insulin lispro 100 unit/mL 1 sliding scale dose SUBCUT 10/26/21 subcutaneous pen (Humalog KwikPen QIDACHS #15 ml (U-100) Insulin) metoprolol tartrate 100 mg tablet 100 mg PO BID #60 tab 10/26/21 pen needle, diabetic 32 gauge x #100 ea 10/26/21 1/ rivaroxaban 20 mg tablet (Xarelto) 20 mg PO DAILY@1700 #30 tab 10/26/21 cefuroxime axetil 250 mg tablet 250 mg PO Q12H #14 tab 11/08/21 digoxin 250 mcg (0.25 mg) tablet 250 mcg PO DAILY #30 tab 11/08/21 (Digox) Allergies Allergy/AdvReac Type Severity Reaction Status Date / Time No Known Allergies Allergy Verified 11/13/21 14:43 [No Known Allergies*] Review of Systems Review of Systems: Constitutional : No Weight loss, No Fever, No Chills, No Night Sweats, No Fatigue, No Malaise ENT/Mouth : No Hearing loss, No Ear Pain, No Nasal Congestion, No Sinus Pain, No Hoarseness, No sore throat, No Rhinorrhea, No Swallowing Difficulty Eyes: No Eye Pain, No Swelling, No Redness, No Foreign Body, No Discharge, No Vision Changes Cardiovascular : + Chest Pain, + SOB, + palpitations, No Dyspnea on Exertion, No Orthopnea, No Edema Respiratory : No Cough, No Sputum, No Wheezing, No Smoke Exposure, No Dyspnea Gastrointestinal : No Nausea, No Vomiting, No Diarrhea, No Constipation, No abdominal Pain, No Hematochezia, No Melena Genitourinary : no irregular bleeding, No Dysuria, No Urinary Frequency, No Hematuria, No Urinary Incontinence, No Urgency, No Flank Pain, No Urinary Flow Changes, No Hesitancy Musculoskeletal : No joint pain, No Myalgias, No Joint Swelling Skin : No Skin Lesions, No rash Neuro : No Weakness, No Numbness, No Paresthesias, No Loss of Consciousness, No Dizziness, No Headache Psych : No Anxiety/Panic, No Depression, No SI/HI/AH/VH, No Social Issues, Heme/Lymph: No Bruising, No Bleeding,No Lymphadenopathy Endocrine : No Polyuria, No Polydipsia, No Temperature Intolerance Yes all other systems are reviewed and are negative PMFSH Past Medical History Attestation statement: The following information was validated with the patient. Medical History Abdominal pain Anemia Arthritis Atrial fibrillation and flutter Depression Diabetes Diabetes Essential hypertension GERD (gastroesophageal reflux disease) Hepatitis HTN (hypertension) Hypercholesteremia Lab test negative for COVID-19 virus On anticoagulant therapy On beta pat at home Surgical History Bariatric surgery status Hx of abdominal surgery Hx of section Hx of cholecystectomy Hx of dilation and curettage Hx of excision of mass Hx of gastric bypass Hx of reduction mammoplasty Hx of tubal ligation Social History Social History Household Members: Children Housing: Apartment Do you presently have visiting nurse or other home services: Yes ([employer]) Alcohol intake: never Patient Tobacco Use Status: Never used Tobacco e-Cigarette/Vaping Use: Never Used Advance Directives: Yes Advance Directives on File: Yes Advance Directives Date on File: 11/09/21 service: No Current occupational status: disabled Current occupation: rt handed Physical Exam Vital Signs: Vital Signs: Last Vital Signs Temp 98.5 F 11/13/21 15:31 Pulse 66 11/13/21 15:31 Resp 16 11/13/21 15:31 BP 145/84 H 11/13/21 15:31 Pulse Ox 98 11/13/21 15:31 BMI result Body Mass Index 38.5 vital signs have been reviewed as normal and appeared to be correct. Blood pressure 150/90. Heart rate 140. Respiration rate normal. Temperature normal. Oxygen saturation normal. Appearance: Alert. Oriented X3. No acute distress. Head: Normal external exam. Normocephalic. Atraumatic. Eyes: PERRLA. EOMI. Conjunctiva and sclera normal. Eyelids normal. ENT: Pharynx normal. Uvula midline. Moist mucous membranes. Normal voice. No trismus noted. No drooling noted. No muffled voice noted. Neck: Normal inspection. Neck supple. FROM. No adenopathy. Thyroid Normal. No meningeal signs. CVS: Normal heart rate and rhythm. Heart sound normal. Pulses normal throughout. No murmurs/rales/gallops. Respiratory: No respiratory distress. Painless inspiration. Breath sounds normal. No wheezes/rales/rhonchi noted. Chest nontender. No crepitus is noted. No signs of trauma noted. No accessory muscle usage noted or decreased air movement noted. No signs of trauma. Abdomen: Soft and nontender. Bowel sounds normal in all 4 quadrants. No distention noted. No organomegaly noted. No visible injury noted. Back: Full range of motion noted. Nontender. Skin: Skin warm and dry. Normal skin color. Normal skin turgor. No rashes/lesions/lacerations noted. Extremities: No lower extremity edema. No calf tenderness is noted. Extremities exhibit normal range of motion and nontender. Neuro: Oriented X 3. No motor deficit. No sensory deficit. Reflexes normal. Normal steady gait. No focal neuro deficits noted. CN's II-XII intact bilaterally? Vascular: + radial pulses/+ 2 distal pedal pulses/+2 dorsalis pedis b/l. Normal cap refill. No cyanosis noted to upper extremity nails and lower extremity toes nails. Course Course Course Narrative: 15:30pm - 55-year-old female who was recently admitted here on 11/06/21 diagnosed with atrial flutter currently started on metoprolol and Xarelto taking as prescribed, HTN, HLD, DM, Hepatitis, GERD, anemia and depression presenting to the ED with complaints of sudden onset of shortness of breath/left-sided chest discomfort with feeling like her heart was racing that occurred a few hours prior to arrival. She reports that the shortness of breath has completely resolved although she still has mild left-sided chest discomfort. She feels like her heart is racing Intermittently. Plan: Labs, chest x-ray, EKG, COVID swab and re-evaluate. Reevaluation(s) Reevaluation #1: - Labs reviewed and magnesium 1.4. Otherwise all other labs are within normal limits. UA revealed blood otherwise no evidence of UTI. Digoxin level 0.9 normal Therapeutic level. - Chest x-ray within normal limits no acute processes are noted. - EKG was atrial flutter with 2-1 av conduction with ventricular rate of 149 although no acute ischemic change are noted and similar when compared to prior EKG On 11/06/2021 - therefore 2 mg of IV magnesium was ordered along with 5 mg of Lopressor plan will be to admit for Paroxysmal Atrial flutter patient and family at bedside understand agree this plan. Time: 17:07 MDM - Chest Pain Medical Records Data Attestation: I reviewed the patient's medical records. Lab Data Attestation: I reviewed the patient's lab results. Result diagrams: 11/13/21 15:42 11/13/21 15:42 Labs: Lab Results 11/13/21 11/13/21 11/13/21 Range/Units 15:42 15:42 15:42 WBC 9.7 (4.8-10.8) X10*3/uL RBC 3.88 L (4.20-5.50) X10*6/uL Hgb 12.5 (12.0-16.0) g/dl Hct 36.9 L (37.0-47.0) % MCV 95.1 (80.0-98.0) fL MCH 32.2 (27.0-33.0) pg MCHC 33.9 (31.0-35.0) g/dl RDW 12.4 (11.0-16.0) % Plt Count 316 (160-400) X10*3/uL MPV 9.0 L (9.4-12.3) fL Immature Gran % (Auto) 0.3 (0.0-0.4) % Neut % (Auto) 66.0 (45-73) % Lymph % (Auto) 25.1 (20-40) % [place] % (Auto) 7.5 (2-11) % Eos % (Auto) 0.8 (0-4) % Baso % (Auto) 0.3 (0-2) % Lymph # (Auto) 2.4 (1.2-4.9) X10*3/uL [place] # (Auto) 0.7 (0.1-1.2) X10*3/uL Eos # (Auto) 0.1 (0.0-0.4) X10*3/uL Baso # (Auto) 0.0 (0.0-0.2) X10*3/uL Abs Immat Gran (auto) 0.03 (0.00-0.03) X10*3/uL Absolute Neuts (auto) 6.4 (2.0-8.3) x10*3/uL Absolute Nucleated RBC 0.000 (0.0-0.012) X10*3/uL Nucleated RBC % (auto) 0.0 (0.0-0.2) /100WBC PT (9.9-13.0) SEC INR (0.9-1.1) D-Dimer High Sensitivty NG/ML Sodium 142 (135-145) mmol/L Potassium 4.4 (3.3-5.1) mmol/L Chloride 109 H (96-108) mmol/L Carbon Dioxide 22 (22-29) mmol/L Anion Gap 15 (12-20) BUN 17 H (9-16) mg/dL Creatinine 0.86 (0.5-1.4) mg/dL Estim Creat Clear Calc 92.0 Estimated GFR > 60 Random Glucose 141 H (60-115) mg/dL Calcium 10.3 H (8.4-10.2) mg/dL Magnesium 1.4 L* (1.6-2.6) mg/dL Total Bilirubin 0.5 (0.0-1.0) mg/dL AST 19 D (5-31) U/L ALT 21 (0-31) U/L Alkaline Phosphatase 89 (39-117) U/L Troponin I High Sens < 3.5 (<3.5-17.0) ng/L Total Protein 7.3 (6.5-8.0) g/dL Albumin 4.1 (3.5-5.0) g/dL Urine Color Urine Appearance Urine pH (5.0-8.0) Ur Specific [place] (1.005-1.025) Urine Protein (NEG-TRACE) MG/DL Urine Glucose (UA) (NEG) MG/DL Urine Ketones (NEG) MG/DL Urine Blood (NEG) Urine Nitrite (NEG) Ur Leukocyte Esterase (NEG) Urine RBC (0) /HPF Urine WBC (0-4) /HPF Ur Squamous Epith Cells /LPF Calcium Oxalate Crystal /LPF Urine Bacteria /LPF Hyaline Casts /LPF Urine Mucus /LPF Digoxin (0.8-2.0) ng/mL 11/13/21 11/13/21 11/13/21 Range/Units 15:42 16:01 16:01 WBC (4.8-10.8) X10*3/uL RBC (4.20-5.50) X10*6/uL Hgb (12.0-16.0) g/dl Hct (37.0-47.0) % MCV (80.0-98.0) fL MCH (27.0-33.0) pg MCHC (31.0-35.0) g/dl RDW (11.0-16.0) % Plt Count (160-400) X10*3/uL MPV (9.4-12.3) fL Immature Gran % (Auto) (0.0-0.4) % Neut % (Auto) (45-73) % Lymph % (Auto) (20-40) % [place] % (Auto) (2-11) % Eos % (Auto) (0-4) % Baso % (Auto) (0-2) % Lymph # (Auto) (1.2-4.9) X10*3/uL [place] # (Auto) (0.1-1.2) X10*3/uL Eos # (Auto) (0.0-0.4) X10*3/uL Baso # (Auto) (0.0-0.2) X10*3/uL Abs Immat Gran (auto) (0.00-0.03) X10*3/uL Absolute Neuts (auto) (2.0-8.3) x10*3/uL Absolute Nucleated RBC (0.0-0.012) X10*3/uL Nucleated RBC % (auto) (0.0-0.2) /100WBC PT 11.2 (9.9-13.0) SEC INR 1.0 (0.9-1.1) D-Dimer High Sensitivty < 150 NG/ML Sodium (135-145) mmol/L Potassium (3.3-5.1) mmol/L Chloride (96-108) mmol/L Carbon Dioxide (22-29) mmol/L Anion Gap (12-20) BUN (9-16) mg/dL Creatinine (0.5-1.4) mg/dL Estim Creat Clear Calc Estimated GFR Random Glucose (60-115) mg/dL Calcium (8.4-10.2) mg/dL Magnesium (1.6-2.6) mg/dL Total Bilirubin (0.0-1.0) mg/dL AST (5-31) U/L ALT (0-31) U/L Alkaline Phosphatase (39-117) U/L Troponin I High Sens (<3.5-17.0) ng/L Total Protein (6.5-8.0) g/dL Albumin (3.5-5.0) g/dL Urine Color YELLOW Urine Appearance CLEAR Urine pH 5.5 (5.0-8.0) Ur Specific [place] >= 1.030 H (1.005-1.025) Urine Protein NEG (NEG-TRACE) MG/DL Urine Glucose (UA) NEG (NEG) MG/DL Urine Ketones 5 (NEG) MG/DL Urine Blood 1+ H (NEG) Urine Nitrite NEG (NEG) Ur Leukocyte Esterase NEG (NEG) Urine RBC 1-4 (0) /HPF Urine WBC 0 (0-4) /HPF Ur Squamous Epith Cells 2+ /LPF Calcium Oxalate Crystal 4+ /LPF Urine Bacteria NONE /LPF Hyaline Casts 0-2 /LPF Urine Mucus TRACE /LPF Digoxin 0.9 (0.8-2.0) ng/mL Imaging Data Chest x-ray: Attestation: I personally reviewed and interpreted this imaging study as follows: Radiologist's impression: FINDINGS: No significant abnormality is noted involving the heart, lungs, mediastinum, bony thorax or soft tissues. XR/XR chest 1V IMPRESSION: Unremarkable examination. ECG Data ECG #1: Attestation: I personally reviewed and interpreted this ECG as follows: ECG interpretation date: 11/13/21 ECG interpretation time: 14:31 Interpretation: EKG was atrial flutter with 2-1 av conduction with ventricular rate of 149 although no acute ischemic change are noted and similar when compared to prior EKG On 11/06/2021 Critical Care Time Critical Care Time Critical Care Time: Yes Total Critical Care Time: 60 Attestation: I personally attest to this time spent taking care of the patient Discharge Plan Discharge Clinical Impression: Atrial flutter, paroxysmal, Low blood magnesium Patient Disposition: Admitted As Inpatient
[2021-11-13 16:12] LABS: Troponin-I High Sensitivity < 3.5 ng/L (<3.5-17.0)
[2021-11-13] MEDS: Magnesium Sulfate/H2O 2 GM/50 ML PIGGYBACK IV (16:20)
[2021-11-13 16:28] LABS: Digoxin 0.9 ng/mL (0.8-2.0)
[2021-11-13 16:49] LABS: Prothrombin Time 11.2 SEC (9.9-13.0)
[2021-11-13 16:59] LABS: D Dimer High Sensitivity < 150 NG/ML
[2021-11-13 17:00] LABS: Appearance Urine CLEAR; Color Urine YELLOW; Glucose Urine UA NEG (NEG); Leukocyte Esterase Urine NEG (NEG); Nitrite Urine NEG (NEG); PH 5.5 (5.0-8.0); Specific Gravity - Urine >= 1.030 (1.005-1.025); UACC Culture Trigger NO; Urine Blood 1+ (NEG); Urine Ketones 5 MG/DL (NEG); Urine Protein NEG (NEG-TRACE)
[2021-11-13 17:39] LABS: Calcium Oxalate Crystals Urine 4+ /LPF; Hyaline Casts Urine 0-2 /LPF; Mucus Urine TRACE /LPF; Squamous Epithelial Cell Urine 2+ /LPF; WBC Urine 0 /HPF (0-4)
--- NOTE | 2021-11-13 17:42 | PHA.MEDREC ---
Pharmacy Consult ? Medication Reconciliation Pharmacy has completed the medication reconciliation. Patient just discharged 11/08 with two new medication cephalexin x 7 days and digoxin. No other medications changed. Med rec completed by Deloris Singh on admission 11/06. Shani Peacock, PharmD
--- NOTE | 2021-11-13 18:12 | P.HPHOSP_ITS ---
History of Present Illness Date of Service: 11/13/21 Chief Complaint: Chest and palpitations 55-year-old female with a history of paroxysmal atrial fibrillation on Xarelto, rate control with digoxin and metoprolol. She was recently hospitalized and only discharge about 6 days ago after adjustment with med in medication with discharge medication of metoprolol and digoxin. She was to have cardioversion on November 17. She presents today with chest pain and palpitation and in ED found to be in atrial flutter with heart rate up to 140 and received IV metoprolol with improvement in her heart rate and is been admitted for further medication adjustment and growing quite possibly cardioversion. Her chest pain is concurrent with the palpitations. EKG showed no acute ischemic changes. Troponin I level is normal Review of Systems Review of Systems: Chest pain and palpitation. No shortness of breath All other system review and are negative [facility] Medical History Abdominal pain Anemia Arthritis Atrial fibrillation and flutter Depression Diabetes Diabetes Essential hypertension GERD (gastroesophageal reflux disease) Hepatitis HTN (hypertension) Hypercholesteremia Lab test negative for COVID-19 virus On anticoagulant therapy On beta pat at home Pertinent family history: no family history of AFIB Surgical History Bariatric surgery status Hx of abdominal surgery Hx of section Hx of cholecystectomy Hx of dilation and curettage Hx of excision of mass Hx of gastric bypass Hx of reduction mammoplasty Hx of tubal ligation Social History Household Members: Children Housing: Apartment Do you presently have visiting nurse or other home services: Yes ([employer]) Alcohol intake: never Patient Tobacco Use Status: Never used Tobacco e-Cigarette/Vaping Use: Never Used Advance Directives: Yes Advance Directives on File: Yes Advance Directives Date on File: 11/09/21 service: No Current occupational status: disabled Current occupation: rt handed Meds Allergies Allergy/AdvReac Type Severity Reaction Status Date / Time No Known Allergies Allergy Verified 11/13/21 14:43 [No Known Allergies*] Active Medications: Current Medications Pharmacy Consult (Consult Rx Perform Med Rec) 1 each MISCELLANE ONCE PRN PRN Reason: Consult order Home Medications Medication Instructions Recorded Confirmed Last Taken Type baclofen 10 mg tablet 10 mg PO TID PRN 04/29/20 11/13/21 Unknown History cholecalciferol (vitamin D3) 50 50 mcg PO DAILY 04/29/20 11/13/21 11/06/21 History mcg (2,000 unit) tablet (Vitamin D3) multivitamin 1 tab PO DAILY 04/29/20 11/13/21 11/06/21 History omeprazole 20 mg tablet,delayed 20 mg PO DAILY 04/29/20 11/13/21 11/06/21 History release acetaminophen 650 mg 1 tab PO Q8H PRN 10/22/21 11/13/21 Unknown History tablet,extended release docusate sodium 100 mg capsule 1 cap PO BID PRN 10/22/21 11/13/21 Unknown History fluoxetine 20 mg capsule 2 cap PO DAILY 10/22/21 11/13/21 11/06/21 History fluticasone propionate 50 1 - 2 spray INTRANASAL DAILY PRN 10/22/21 11/13/21 Unknown History mcg/actuation nasal spray,suspension metformin 500 mg tablet,extended 2 tab PO BID 10/22/21 11/13/21 11/06/21 History release 24 hr sennosides 8.6 mg tablet (senna) 2 tab PO BEDTIME PRN 10/22/21 11/13/21 Unknown History trazodone 100 mg tablet 2 tab PO BEDTIME PRN 10/22/21 11/13/21 Unknown History atorvastatin 80 mg tablet 80 mg PO BEDTIME 10/27/21 11/13/21 11/05/21 History insulin glargine 100 unit/mL (3 10 unit SUBCUT BEDTIME 11/06/21 11/13/21 11/05/21 History mL) subcutaneous pen (Lantus Solostar U-100 Insulin) loratadine 10 mg tablet 1 tab PO DAILY PRN 11/06/21 11/13/21 Unknown History Physical Exam Vital Signs and Narrative: Vital Signs: Last Vital Signs Temp 98.5 F 11/13/21 15:31 Pulse 66 11/13/21 15:31 Resp 16 11/13/21 15:31 BP 145/84 H 11/13/21 15:31 Pulse Ox 98 11/13/21 15:31 BMI result Body Mass Index 38.5 Const: Other: Constitutional: Alert, in no distress, overweight. Mental Status: Oriented to person, place and time. Eyes: Pupils are equal, round and reactive to light. Ear, Nose and Throat: Oropharynx clear, mucous membranes moist. Ears and nose without eformities. Respiratory: Clear to auscultation. No wheezing, rales or rhonchi. Cardiovascular: S1 S2 regular. Irregular irregular Gastrointestinal: Abdomen soft, non-tender, non-distended. Normal bowel sounds.? Neurologic: Cranial nerves II-XII grossly intact. No focal neurological deficits. Moves all extremities spontaneously.? Skin: No rashes or lesions.? Musculoskeletal: No cyanosis or clubbing. Psychiatric: Normal mood and affect? Results Labs CBC and Chem 7: 11/13/21 15:42 11/13/21 15:42 Labs: Laboratory Results - last 24 hr 11/13/21 11/13/21 11/13/21 15:42 15:42 15:42 MCV 95.1 MCH 32.2 MCHC 33.9 RDW 12.4 Plt Count 316 MPV 9.0 L Immature Gran % (Auto) 0.3 Neut % (Auto) 66.0 Lymph % (Auto) 25.1 [place] % (Auto) 7.5 Eos % (Auto) 0.8 Baso % (Auto) 0.3 Lymph # (Auto) 2.4 [place] # (Auto) 0.7 Eos # (Auto) 0.1 Baso # (Auto) 0.0 Abs Immat Gran (auto) 0.03 Absolute Neuts (auto) 6.4 Absolute Nucleated RBC 0.000 Nucleated RBC % (auto) 0.0 PT INR D-Dimer High Sensitivty Anion Gap 15 Estim Creat Clear Calc 92.0 Estimated GFR > 60 Random Glucose 141 H Calcium 10.3 H Magnesium 1.4 L* Total Bilirubin 0.5 AST 19 D ALT 21 Alkaline Phosphatase 89 Troponin I High Sens < 3.5 Total Protein 7.3 Albumin 4.1 Urine Color Urine Appearance Urine pH Ur Specific [place] Urine Protein Urine Glucose (UA) Urine Ketones Urine Blood Urine Nitrite Ur Leukocyte Esterase Urine RBC Urine WBC Ur Squamous Epith Cells Calcium Oxalate Crystal Urine Bacteria Hyaline Casts Urine Mucus Digoxin 11/13/21 11/13/21 11/13/21 15:42 16:01 16:01 MCV MCH MCHC RDW Plt Count MPV Immature Gran % (Auto) Neut % (Auto) Lymph % (Auto) [place] % (Auto) Eos % (Auto) Baso % (Auto) Lymph # (Auto) [place] # (Auto) Eos # (Auto) Baso # (Auto) Abs Immat Gran (auto) Absolute Neuts (auto) Absolute Nucleated RBC Nucleated RBC % (auto) PT 11.2 INR 1.0 D-Dimer High Sensitivty < 150 Anion Gap Estim Creat Clear Calc Estimated GFR Random Glucose Calcium Magnesium Total Bilirubin AST ALT Alkaline Phosphatase Troponin I High Sens Total Protein Albumin Urine Color YELLOW Urine Appearance CLEAR Urine pH 5.5 Ur Specific [place] >= 1.030 H Urine Protein NEG Urine Glucose (UA) NEG Urine Ketones 5 Urine Blood 1+ H Urine Nitrite NEG Ur Leukocyte Esterase NEG Urine RBC 1-4 Urine WBC 0 Ur Squamous Epith Cells 2+ Calcium Oxalate Crystal 4+ Urine Bacteria NONE Hyaline Casts 0-2 Urine Mucus TRACE Digoxin 0.9 Imaging Radiologist's Impressions: Impressions Chest X-Ray 11/13/21 15:55 IMPRESSION: Unremarkable examination. Assessment and Plan (1) Atrial fibrillation: Status: Acute Plan 55-year-old female who with palpitation and generalized weakness, diabetic and hypertensive here with recurrent aflutter with RVR 1. Atrial flutter with RVR--reate is controlled now on Metoprolol and digoxin. -Continue oral metoprolol, and dig, reconsult cardiology to reassess , may need cardioversion sooner. Continue Xarelto. check dig level 2.? diabetes:? continue? POCs with sliding scale coverage,home regimen. 3.HLP:? Statin 4. Hypertension:?continue metoprolol. 5. Morbid obesity:? Advised to cut down calories and encouraged for weight loss.? Of note she had a gastric bypass surgery in the past too. 6. GERD: Continue omeprazole. Admission was span 2 midnight for management of atrial fibrillation with rapid ventricular response and will require cardiac monitoring and medication adjustment and monitoring for response. Quality Stroke Does the patient have a stroke diagnosis?: No VTE Prior VTE?: No VTE Risk Level:: Medical - low VTE Device Contraindication: Treatment Not Tolerated VTE Drug Contraindication: N/A - Med Ordered
[2021-11-13] MEDS: Insulin Glargine,Hum.rec.anlog 100 UNIT/ML 10 ML VIAL 10 UNIT SUBCUT (20:05)
[2021-11-13] MEDS: Metoprolol Tartrate 25 MG TABLET PO (20:06)
[2021-11-13 20:15] VITALS: BP 150/91; PULSE 77; RESP 17; TEMP 36.9; O2SAT 97
--- NOTE | 2021-11-13 21:00 | PC.NURSE ---
Report received from FANNY Edmond. Awaiting patient to Overflow unit.
[2021-11-13 21:25] VITALS: BP 156/77; PULSE 74; RESP 18; O2SAT 99
--- NOTE | 2021-11-13 21:25 | PC.NURSE ---
Patient arrived to room 1, VSS, NAD noted. Patient ambulated to bathroom with standby assist. Tele monitor in place, A fib at 74 noted. Will monitor closely.
[2021-11-13 22:46] LABS: Glucose, Whole Blood 123 mg/dL (60-115)
[2021-11-13] MEDS: metFORMIN HCl ER 500 MG TAB.ER.24H 1000 MG PO (22:50)
[2021-11-13 23:21] LABS: COVID-19 Test Negative (Negative)
[2021-11-14 00:42] VITALS: BP 132/53; PULSE 70; RESP 12; O2SAT 98
[2021-11-14] MEDS: Metoprolol Tartrate 25 MG TABLET PO ×2 (00:43→06:24)
[2021-11-14] MEDS: 0.9 % Sodium Chloride Flush 3 ML SYRINGE IVFLUSH ×2 (00:44→08:03)
[2021-11-14 04:00] VITALS: BP 142/71; PULSE 76; RESP 13; TEMP 36.7; O2SAT 98
[2021-11-14 06:22] VITALS: BP 133/67; PULSE 76; RESP 17; O2SAT 97
[2021-11-14] MEDS: Omeprazole 20 MG CAPSULE.DR PO (06:24)
--- NOTE | 2021-11-14 07:24 | PC.NURSE ---
pt resting comfortably in bed, resp even and unlabored. nad noted. aware of plan of care at this time. denied having any questions.
[2021-11-14 07:30] LABS: Glucose, Whole Blood 131 mg/dL (60-115)
[2021-11-14] MEDS: FLUoxetine HCl 20 MG CAPSULE 40 MG PO (08:02)
[2021-11-14] MEDS: metFORMIN HCl ER 500 MG TAB.ER.24H 1000 MG PO (08:03)
[2021-11-14] MEDS: Cholecalciferol (Vitamin D3) 25 MCG TABLET 50 MCG PO (08:03)
[2021-11-14] MEDS: Multivitamin TABLET 1 TAB PO (08:03)
[2021-11-14] MEDS: Metoprolol Tartrate 50 MG TABLET PO ×2 (08:07→12:58)
[2021-11-14 08:21] VITALS: BP 133/74; PULSE 95; RESP 18; TEMP 35.6; O2SAT 95
[2021-11-14 11:19] LABS: Glucose, Whole Blood 225 mg/dL (60-115)
[2021-11-14 11:31] LABS: Magnesium 1.4 mg/dL (1.6-2.6)
[2021-11-14 11:48] LABS: Digoxin 0.6 ng/mL (0.8-2.0)
[2021-11-14] MEDS: Magnesium Sulfate/H2O 2 GM/50 ML PIGGYBACK IV (12:03)
[2021-11-14] MEDS: Insulin Lispro 100 UNIT/ML 3 ML VIAL SUBCUT (12:58)
[2021-11-14 13:20] VITALS: BP 136/72; PULSE 70; RESP 20; TEMP 36.2; O2SAT 98
--- NOTE | 2021-11-14 14:04 | P.DS_ITS ---
DS: Providers Provider Date of Service: 11/14/21 Date of admission: 11/13/21 18:28 Primary care physician: Cynthia Carson DO DS: Diagnosis Discharge Diagnosis (1) Atrial fibrillation: DS: Summary Hospital Course Hospital Course: Chief Complaint: Chest and palpitations 55-year-old female with a history of paroxysmal atrial fibrillation on Xarelto, rate control with digoxin and metoprolol.? She was recently hospitalized and only discharge about 6 days ago after adjustment with med in medication with di scharge medication of? metoprolol and digoxin.? She was to have cardioversion on November 17.? She presents today with chest pain and palpitation and in ED found to be in atrial flutter with heart rate up to 140 and received IV metoprolol with improvement in her heart rate and is been admitted for further medication adjustment and growing quite possibly cardioversion.? Her chest pain is concurrent with the palpitations.? EKG showed no acute ischemic changes.? Troponin I level is normal Hospital course: Patient was given one dose of IV metoprolol in ED and tehen continued on oral metoprolol 25 q6 and titrated up to 50 q6 and her rate has been well controlled nearly 24 now and wants to go home and to follow up with cardiology on outptient basis for cardioversion which is scheduled for November 17. She's to continue prior medication with metoprolol and Digoxin for rate controlled and Xarelto for rate controlle. Compliance is stressed again Time Spent with Patient Time attestation: Total time spent providing and/or coordinating discharge services: Discharge coordination time: Greater than 30 minutes Quality: Safe Use of Opioids Does Pt have an Active Cancer Diagnosis on the Problem List?: No Quality: Stroke Does the patient have a stroke diagnosis?: No Physical Exam Vital Signs: Vital Signs: Last Vital Signs Temp 97.2 F 11/14/21 13:20 Pulse 70 11/14/21 13:20 Resp 20 11/14/21 13:20 BP 136/72 11/14/21 13:20 Pulse Ox 98 11/14/21 13:20 BMI result Body Mass Index 38.5 DS: Data Data Completed and Pending Labs on day of discharge: Laboratory Results - last 24 hr 11/13/21 11/13/21 11/13/21 15:42 15:42 15:42 WBC 9.7 RBC 3.88 L Hgb 12.5 Hct 36.9 L MCV 95.1 MCH 32.2 MCHC 33.9 RDW 12.4 Plt Count 316 MPV 9.0 L Immature Gran % (Auto) 0.3 Neut % (Auto) 66.0 Lymph % (Auto) 25.1 [place] % (Auto) 7.5 Eos % (Auto) 0.8 Baso % (Auto) 0.3 Lymph # (Auto) 2.4 [place] # (Auto) 0.7 Eos # (Auto) 0.1 Baso # (Auto) 0.0 Abs Immat Gran (auto) 0.03 Absolute Neuts (auto) 6.4 Absolute Nucleated RBC 0.000 Nucleated RBC % (auto) 0.0 PT INR D-Dimer High Sensitivty Sodium 142 Potassium 4.4 Chloride 109 H Carbon Dioxide 22 Anion Gap 15 BUN 17 H Creatinine 0.86 Estim Creat Clear Calc 92.0 Estimated GFR > 60 POC Glucose Random Glucose 141 H Calcium 10.3 H Magnesium 1.4 L* Total Bilirubin 0.5 AST 19 D ALT 21 Alkaline Phosphatase 89 Troponin I High Sens < 3.5 Total Protein 7.3 Albumin 4.1 Urine Color Urine Appearance Urine pH Ur Specific [place] Urine Protein Urine Glucose (UA) Urine Ketones Urine Blood Urine Nitrite Ur Leukocyte Esterase Urine RBC Urine WBC Ur Squamous Epith Cells Calcium Oxalate Crystal Urine Bacteria Hyaline Casts Urine Mucus Digoxin COVID-19 (FR[facility]) COVID-19 Clin Com 11/13/21 11/13/21 11/13/21 15:42 16:01 16:01 WBC RBC Hgb Hct MCV MCH MCHC RDW Plt Count MPV Immature Gran % (Auto) Neut % (Auto) Lymph % (Auto) [place] % (Auto) Eos % (Auto) Baso % (Auto) Lymph # (Auto) [place] # (Auto) Eos # (Auto) Baso # (Auto) Abs Immat Gran (auto) Absolute Neuts (auto) Absolute Nucleated RBC Nucleated RBC % (auto) PT 11.2 INR 1.0 D-Dimer High Sensitivty < 150 Sodium Potassium Chloride Carbon Dioxide Anion Gap BUN Creatinine Estim Creat Clear Calc Estimated GFR POC Glucose Random Glucose Calcium Magnesium Total Bilirubin AST ALT Alkaline Phosphatase Troponin I High Sens Total Protein Albumin Urine Color YELLOW Urine Appearance CLEAR Urine pH 5.5 Ur Specific [place] >= 1.030 H Urine Protein NEG Urine Glucose (UA) NEG Urine Ketones 5 Urine Blood 1+ H Urine Nitrite NEG Ur Leukocyte Esterase NEG Urine RBC 1-4 Urine WBC 0 Ur Squamous Epith Cells 2+ Calcium Oxalate Crystal 4+ Urine Bacteria NONE Hyaline Casts 0-2 Urine Mucus TRACE Digoxin 0.9 COVID-19 ([facility]) COVID-19 Clin Com 11/13/21 11/13/21 11/14/21 22:15 22:46 07:12 WBC RBC Hgb Hct MCV MCH MCHC RDW Plt Count MPV Immature Gran % (Auto) Neut % (Auto) Lymph % (Auto) [place] % (Auto) Eos % (Auto) Baso % (Auto) Lymph # (Auto) [place] # (Auto) Eos # (Auto) Baso # (Auto) Abs Immat Gran (auto) Absolute Neuts (auto) Absolute Nucleated RBC Nucleated RBC % (auto) PT INR D-Dimer High Sensitivty Sodium Potassium Chloride Carbon Dioxide Anion Gap BUN Creatinine Estim Creat Clear Calc Estimated GFR POC Glucose 123 H 131 H Random Glucose Calcium Magnesium Total Bilirubin AST ALT Alkaline Phosphatase Troponin I High Sens Total Protein Albumin Urine Color Urine Appearance Urine pH Ur Specific [place] Urine Protein Urine Glucose (UA) Urine Ketones Urine Blood Urine Nitrite Ur Leukocyte Esterase Urine RBC Urine WBC Ur Squamous Epith Cells Calcium Oxalate Crystal Urine Bacteria Hyaline Casts Urine Mucus Digoxin COVID-19 (FRANC) Negative COVID-19 Clin Com See Note 11/14/21 11/14/21 11/14/21 11:03 11:03 11:09 WBC RBC Hgb Hct MCV MCH MCHC RDW Plt Count MPV Immature Gran % (Auto) Neut % (Auto) Lymph % (Auto) [place] % (Auto) Eos % (Auto) Baso % (Auto) Lymph # (Auto) [place] # (Auto) Eos # (Auto) Baso # (Auto) Abs Immat Gran (auto) Absolute Neuts (auto) Absolute Nucleated RBC Nucleated RBC % (auto) PT INR D-Dimer High Sensitivty Sodium Potassium Chloride Carbon Dioxide Anion Gap BUN Creatinine Estim Creat Clear Calc Estimated GFR POC Glucose 225 H Random Glucose Calcium Magnesium 1.4 L* Total Bilirubin AST ALT Alkaline Phosphatase Troponin I High Sens Total Protein Albumin Urine Color Urine Appearance Urine pH Ur Specific [place] Urine Protein Urine Glucose (UA) Urine Ketones Urine Blood Urine Nitrite Ur Leukocyte Esterase Urine RBC Urine WBC Ur Squamous Epith Cells Calcium Oxalate Crystal Urine Bacteria Hyaline Casts Urine Mucus Digoxin 0.6 L COVID-19 ([facility]) COVID-19 Clin [facility] Discharge Plan Discharge Anticipated Discharge Date/Time: 11/14/21 14:16 Patient Disposition: Home, Self-Care Discharge Diagnosis: Atrial flutter Referrals: Cynthia Carson DO [Primary Care Provider] - 1 Week Discharge Medications: New magnesium oxide 400 mg magnesium tablet 400 mg PO DAILY Qty: 30 0RF Continued multivitamin Tablet 1 tab PO DAILY baclofen 10 mg Tablet 10 mg PO TID PRN (Reason: Spasms) omeprazole 20 mg Tablet,Delayed Release (Dr/Ec) 20 mg PO DAILY cholecalciferol (vitamin D3) [Vitamin D3] 50 mcg (2,000 unit) Tablet 50 mcg PO DAILY Lantus Solostar U-100 Insulin 100 unit/mL (3 mL) insulin pen 10 unit SUBCUT BEDTIME cefuroxime axetil 250 mg tablet 250 mg PO Q12H Qty: 14 0RF sennosides [senna] 8.6 mg tablet 2 tab PO BEDTIME PRN (Reason: constipation) fluticasone propionate 50 mcg/actuation spray,suspension 1 - 2 spray intranasal DAILY PRN (Reason: Allergy Symptoms) Xarelto 20 mg Tablet 20 mg PO DAILY@1700 Qty: 30 0RF metoprolol tartrate 100 mg tablet 100 mg PO BID Qty: 60 0RF insulin lispro [Humalog KwikPen Insulin] 100 unit/mL Insulin Pen 1 sliding scale dose SUBCUT QIDACHS Qty: 15 0RF Rx Instructions: Blood Sugar: <150 - 0 units 151-200 - 2 units 201-250 - 4 units 251-300 - 6 units 301-350 - 8 units >350 - 10 units (DME) pen needle, diabetic 32 gauge x 1/4 Needle Qty: 100 0RF Rx Instructions: Use four times a day or as directed. atorvastatin 80 mg tablet 80 mg PO BEDTIME No Action loratadine 10 mg tablet 10 mg PO DAILY PRN (Reason: Allergy Symptoms) acetaminophen 650 mg tablet extended release 650 mg PO Q8H PRN (Reason: fever) docusate sodium 100 mg capsule 100 mg PO BID PRN (Reason: Constipation) fluoxetine 20 mg capsule 40 mg PO DAILY metformin 500 mg tablet extended release 24 hr 2,000 mg PO BID trazodone 100 mg tablet 200 mg PO BEDTIME PRN (Reason: Insomnia) lisinopril 5 mg tablet 5 mg PO DAILY Qty: 30 3RF Discharge Orders: Discharge Order (Routine); Ordered 11/14/21 Ordered By: Prasanth Guo Activity on Discharge: As tolerated Stand Alone Forms: Patient Portal Discharge page Care Plan Goals: Control of atrial fibrillation Health Concerns: Recurrent atrial fibrillation Plan of Treatment: Continue taking your medications as usual, do not skip any medication. Follow- up with your heart doctor as previously scheduled November 17 for cardioversion Assessment: As above Discharge Date/Time: 11/14/21 14:32
--- NOTE | 2021-11-14 14:26 | MHC.CM.PN ---
pt dcd home no skilled services ordered by
== END 2021-11-14 14:32 | disposition home or self-care (01) | DRG 310 ==
LOC: HO.ED 17:15 → HO.EDOVER 18:31
PROVIDERS: Physician Assistant Medical; Admitting Provider Internal Medicine; Emergency Provider Emergency Medicine; PCP Family Medicine; Visit Provider Internal Medicine
DX: I48.91 Unspecified atrial fibrillation (principal); I10 Essential (primary) hypertension; K21.9 Gastro-esophageal reflux disease without esophagitis; E78.5 Hyperlipidemia, unspecified; D64.9 Anemia, unspecified; E66.01 Morbid (severe) obesity due to excess calories; Z68.38 Body mass index [BMI] 38.0-38.9, adult; Z20.822 Contact with and (suspected) exposure to COVID-19; Z98.84 Bariatric surgery status; Z79.4 Long term (current) use of insulin; Z79.84 Long term (current) use of oral hypoglycemic drugs; Z79.01 Long term (current) use of anticoagulants; Z79.51 Long term (current) use of inhaled steroids; Z79.899 Other long term (current) drug therapy
CPT/HCPCS: 36415; 71045; 80053; 80162; 81001; 81003; 82947; 83735; 84484; 85025; 85379; 85610; 87635; 93005; 96365; 96366; 96375; 99285; 99291; J3475

== ENCOUNTER 2021-11-17 12:36 | Day surgery (SDC) | payer MEDICARE, MEDICAID, SELFPAY ==
--- NOTE | 2021-11-16 08:51 | HO.ANESPROP2 ---
Documented by User: Sonam Dominguez NP 11/16/21 08:55 HPI - Anesthesia Eval Consult details Narrative: 55yo F for Cardioversion xarelto for afib/flutter PMFSH Active Problems Active Problems: All Active Problems (Updated 11/16/21 @ 00:03 by Rashaun Alcala) Language barrier (Acute) Bladder pain (Acute) Vaginal itching (Acute) Bacterial vaginosis (Acute) Osteoarthritis of right knee (Acute) Morbid obesity (Acute) Women's annual routine gynecological examination (Acute) Cervical cancer screening (Acute) Encounter for screening colonoscopy (Acute) Poor historian (Acute) Fibroids (Acute) New onset atrial flutter (Acute) Hypersomnia (Acute) Cardiomyopathy (Acute) Hospital discharge follow-up (Acute) Atrial flutter (Acute) Diabetes (Acute) Abdominal pain (Acute) Past Medical History Medical History Abdominal pain Anemia Arthritis Atrial fibrillation and flutter Depression Diabetes Diabetes Essential hypertension GERD (gastroesophageal reflux disease) Hepatitis HTN (hypertension) Hypercholesteremia Lab test negative for COVID-19 virus On anticoagulant therapy On beta pat at home Surgical History Surgical History Bariatric surgery status Hx of abdominal surgery Hx of section Hx of cholecystectomy Hx of dilation and curettage Hx of excision of mass Hx of gastric bypass Hx of reduction mammoplasty Hx of tubal ligation Social History Social History Household Members: Children Housing: Apartment 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) Alcohol intake: never Patient Tobacco Use Status: Never used Tobacco e-Cigarette/Vaping Use: Never Used Use of substances other than those prescribed or required for medical reasons: No Advance Directives: Yes Advance Directives on File: Yes Advance Directives Date on File: 11/09/21 Recently lost weight without trying: No Nutrition Risks: No Nutritional Risk service: No Current occupational status: disabled Current occupation: rt handed Meds Allergies Allergy/AdvReac Type Severity Reaction Status Date / Time No Known Allergies Allergy Verified 11/13/21 14:43 [No Known Allergies*] Home Medications Medication Instructions Recorded Confirmed Last Taken Type baclofen 10 mg tablet 10 mg PO TID PRN 10/28/20 05/14/22 Unknown History cholecalciferol (vitamin D3) 50 50 mcg PO DAILY 04/29/20 11/13/21 11/06/21 History mcg (2,000 unit) tablet (Vitamin D3) multivitamin 1 tab PO DAILY 04/29/20 11/13/21 11/06/21 History omeprazole 20 mg tablet,delayed 20 mg PO DAILY 04/29/20 11/13/21 11/06/21 History release acetaminophen 650 mg 1 tab PO Q8H PRN 10/22/21 11/13/21 Unknown History tablet,extended release docusate sodium 100 mg capsule 1 cap PO BID PRN 10/22/21 11/13/21 Unknown History fluoxetine 20 mg capsule 2 cap PO DAILY 10/22/21 11/13/21 11/06/21 History fluticasone propionate 50 1 - 2 spray INTRANASAL DAILY PRN 10/22/21 11/13/21 Unknown History mcg/actuation nasal spray,suspension metformin 500 mg tablet,extended 2 tab PO BID 10/22/21 11/13/21 11/06/21 History release 24 hr sennosides 8.6 mg tablet (senna) 2 tab PO BEDTIME PRN 10/22/21 11/13/21 Unknown History trazodone 100 mg tablet 2 tab PO BEDTIME PRN 10/22/21 11/13/21 Unknown History atorvastatin 80 mg tablet 80 mg PO BEDTIME 10/27/21 11/13/21 11/05/21 History insulin glargine 100 unit/mL (3 10 unit SUBCUT BEDTIME 11/06/21 11/13/21 11/05/21 History mL) subcutaneous pen (Lantus Solostar U-100 Insulin) loratadine 10 mg tablet 1 tab PO DAILY PRN 11/06/21 11/13/21 Unknown History Exam Exam Date and Time: November 16, 2021 0851 Pertinent Lab Results Pertinent Lab Results: Laboratory Tests 11/13/21 11/13/21 15:42 15:42 WBC 9.7 Hgb 12.5 Hct 36.9 L Plt Count 316 Sodium 142 Potassium 4.4 Chloride 109 H Carbon Dioxide 22 BUN 17 H Creatinine 0.86 Narrative Narrative: EKG 10/2021 Vent. Rate : 149 BPM ? ? Atrial Rate : 298 BPM ?? P-R Int : 000 ms? QRS Dur : 100 ms ? ? QT Int : 294 ms ? ? ? P-R-T Axes : 000 002 151 degrees ?? QTc Int : 463 ms ? Atrial flutter with 2:1 A-V conduction Left ventricular hypertrophy with repolarization abnormality ( R in aVL ) Abnormal ECG When compared with ECG of 06-NOV-2021 09:13, ST now depressed in Lateral leads Nonspecific T wave abnormality no longer evident in Inferior leads Inverted T waves have replaced nonspecific T wave abnormality in Lateral leads ECHO 10/2021 Conclusions: - The left ventricular systolic function is mildly decreased.? ? The visually estimated ejection fraction is between 40-45%.? ? ? - No obvious valvular pathology seen on this study.? ? Documented by User: Eleazar Early MD 11/17/21 13:53 PMFSH Past Medical History Medical History Abdominal pain Anemia Arthritis Atrial fibrillation and flutter Depression Diabetes Diabetes Essential hypertension GERD (gastroesophageal reflux disease) Hepatitis HTN (hypertension) Hypercholesteremia Lab test negative for COVID-19 virus On anticoagulant therapy On beta pat at home Patient : No Family History Family history of problems with anesthesia: No Surgical History Surgical History Bariatric surgery status Hx of abdominal surgery Hx of section Hx of cholecystectomy Hx of dilation and curettage Hx of excision of mass Hx of gastric bypass Hx of reduction mammoplasty Hx of tubal ligation History of Problems with Anesthesia: No Social History Social History Household Members: Children Housing: Apartment 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) Alcohol intake: never Patient Tobacco Use Status: Never used Tobacco e-Cigarette/Vaping Use: Never Used Use of substances other than those prescribed or required for medical reasons: No Advance Directives: Yes Advance Directives on File: Yes Advance Directives Date on File: 11/09/21 Recently lost weight without trying: No Nutrition Risks: No Nutritional Risk service: No Current occupational status: disabled Current occupation: rt handed Meds Allergies Allergy/AdvReac Type Severity Reaction Status Date / Time No Known Allergies Allergy Verified 11/13/21 14:43 [No Known Allergies*] Home Medications Medication Instructions Recorded Confirmed Last Taken Type baclofen 10 mg tablet 10 mg PO TID PRN 04/29/20 11/13/21 Unknown History cholecalciferol (vitamin D3) 50 50 mcg PO DAILY 04/29/20 11/13/21 11/06/21 History mcg (2,000 unit) tablet (Vitamin D3) multivitamin 1 tab PO DAILY 04/29/20 11/13/21 11/06/21 History omeprazole 20 mg tablet,delayed 20 mg PO DAILY 04/29/20 11/13/21 11/06/21 History release acetaminophen 650 mg 1 tab PO Q8H PRN 10/22/21 11/13/21 Unknown History tablet,extended release docusate sodium 100 mg capsule 1 cap PO BID PRN 10/22/21 11/13/21 Unknown History fluoxetine 20 mg capsule 2 cap PO DAILY 10/22/21 11/13/21 11/06/21 History fluticasone propionate 50 1 - 2 spray INTRANASAL DAILY PRN 10/22/21 11/13/21 Unknown History mcg/actuation nasal spray,suspension metformin 500 mg tablet,extended 2 tab PO BID 10/22/21 11/13/21 11/06/21 History release 24 hr sennosides 8.6 mg tablet (senna) 2 tab PO BEDTIME PRN 10/22/21 11/13/21 Unknown History trazodone 100 mg tablet 2 tab PO BEDTIME PRN 10/22/21 11/13/21 Unknown History atorvastatin 80 mg tablet 80 mg PO BEDTIME 10/27/21 11/13/21 11/05/21 History insulin glargine 100 unit/mL (3 10 unit SUBCUT BEDTIME 11/06/21 11/13/21 11/05/21 History mL) subcutaneous pen (Lantus Solostar U-100 Insulin) loratadine 10 mg tablet 1 tab PO DAILY PRN 11/06/21 11/13/21 Unknown History Exam Airway TM Dist: >3cm Neck ROM: Full Loose/Missing/Broken Teeth: No Heart: afib/flutter Lungs: ok Assessment and Plan Final Anesthetic Review Family History of Problems with Anesthesia: No History of Problems with Anesthesia: No NPO: Yes ASA Class: III Final Preanesthetic Review: No Changes in Pt Med Stat, Meds/Allgs Chart Reviewed, Consent Obtained/Reviewed and Anes Risks/Benef Reviewed Patient Risk: Intermediate Procedure Risk: Low Anesthetic Plan Anesthetic Plan: MAC: and Agree w/ Assess. and Plan Disposition: Standard PACU
--- NOTE | 2021-11-17 13:20 | MHC.SHP ---
Pre-Procedural Eval Section A Date of Service: 11/17/21 The patient is an INPATIENT: No Changes since office visit: Yes Patient answered all questions; No Cold of Flu in the past 2 weeks, No New Medical Problems and No Changes in Medication The History & Physical has been completed within 30 days and I have reviewed it.: Yes Section B Chief Complaint: afib Allergies: Allergies Allergy/AdvReac Type Severity Reaction Status Date / Time No Known Allergies Allergy Verified 11/13/21 14:43 [No Known Allergies*] Plan I have reviewed the history and physical and performed a pertinent physical examination on my patient. No changes have occurred unless specified.
[2021-11-17 13:21] VITALS: BP 129/83; PULSE 76; RESP 16; TEMP 36.3; O2SAT 98; BMI 43.5
[2021-11-17] MEDS: Lactated Ringers 1,000 ML 20 ML IVCONT (13:35)
[2021-11-17 13:37] LABS: Glucose, Whole Blood 132 mg/dL (60-115)
--- NOTE | 2021-11-17 15:25 | HO.CARDIVERS ---
Cardioversion Procedure Note Cardioversion Date of Procedure: 11/17/2021 Ordering Provider: Myself Performing Provider: Myself Indication for Procedure: Persistent atrial flutter with multiple presentation to the hospital due to symptoms Pre-Op Diagnosis: Same Post-Op Diagnosis: Normal sinus rhythm Performed with Transesophageal Echo: No Consent: Verbal and Written consent was obtained from the patient before starting with help of a certified american sign language interpreter and confirming oral anticoagulation use The patient was made aware of the risk of synchronized cardioversion including benefits, alternatives 2nd opinion Procedure: After consent obtained, cardioversion pads were attached in AP configuration and the patient was sedated by the anesthesia team. Once adequate sedation achieved, was delivered 200 joules of biphasic synchronized energy in AP configuration Complications: None Impression: Successful conversion to sinus rhythm Recommendations: 1. 12 lead EKG 2. Discontinue digoxin 3. Continue metoprolol and Xarelto 4. Follow-up in the office after Holter monitor
[2021-11-17 15:37] VITALS: BP 132/69; PULSE 56; RESP 16; TEMP 37.1; O2SAT 100
[2021-11-17 15:39] VITALS: BP 126/63; PULSE 56; O2SAT 100
[2021-11-17 15:47] VITALS: BP 138/65; PULSE 56; RESP 18; O2SAT 98
[2021-11-17 15:51] VITALS: BP 151/83; PULSE 56; RESP 18; O2SAT 99
== END 2021-11-17 16:26 | disposition home or self-care (01) ==
PROVIDERS: PCP Family Medicine; Visit Provider Internal Medicine Cardiovascular Disease
PROC: 5A2204Z Restoration of Cardiac Rhythm, Single (ICD-10-PCS; principal; 2021-11-17 14:40)
DX: I48.92 Unspecified atrial flutter (principal); Z79.01 Long term (current) use of anticoagulants; I10 Essential (primary) hypertension; E78.5 Hyperlipidemia, unspecified; E11.9 Type 2 diabetes mellitus without complications; E66.01 Morbid (severe) obesity due to excess calories; Z68.41 Body mass index [BMI] 40.0-44.9, adult; Z79.4 Long term (current) use of insulin; Z79.899 Other long term (current) drug therapy; Z90.49 Acquired absence of other specified parts of digestive tract; Z98.84 Bariatric surgery status; Z98.890 Other specified postprocedural states
CPT/HCPCS: 82947; 92960

== ENCOUNTER → 2021-11-22 09:17 | Outpatient (REF) | payer MEDICARE, MEDICAID, SELFPAY ==
--- NOTE | ~2021-11-22 | NM_ITS ---
Myocardial perfusion study Indication: Cardiomyopathy with atrial flutter with symptoms CHEST pain with atrial flutter Technique: The patient was brought in for a Lexiscan perfusion study on 11/22/2021. Patient performed low-level exercise and was injected 0.4 mg of Lexiscan intravenously. Within a minute of injection, 35 mCi of sestamibi was given intravenously. Images were obtained using the SPECT gamma camera interlaced with the gating device. Images were obtained in supine position. Resting perfusion study was performed on 11/23/2021. Patient was administered 35 mCi of sestamibi intravenously at rest. Images were then obtained in supine position. Images obtained with and without CT attenuation. Total DLP 147 mGy-cm. Images were processed with the software and compared side to side in short axis, horizontal long axis and vertical long axis views. Findings: The stress perfusion study showed non attenuated images show moderately reduced uptake in the distal anterior as well as apical wall of the LV myocardium as well as mildly reduced uptake in the distal anteroseptal.. Remainder of the LV myocardium is normally perfused. Attenuation corrected images show minimally reduced uptake in the apex of the LV myocardium.. The gated study shows mildly reduced LV systolic function with calculated LVEF of 46%. LV cavity is mildly dilated size. The gated study shows diffusely reduced wall thickening and contraction of segments. Resting study shows nontender images show improved uptake in the distal anterior and apical wall of the LV myocardium. Attenuation corrected images show no changes in perfusion.. Gating at rest reveals diffusely reduced wall motion with ejection fraction at 51%. The findings are consistent with equivocal finding but attenuation corrected images show no reversible defect. NM/NM cardiolite stress test Impression: 1. Myocardial perfusion imaging study shows likely normal myocardial perfusion 2. Gated LVEF is 46% 3. Transient ischemic dilatation not present but LV cavity is mildly dilated EKG is nondiagnostic for ischemia
--- NOTE | 2021-11-22 09:20 | CA_ITS ---
Acquisition Time: 2021-11-22 10:13:01 Total Exercise Time: 00:02:00 Test Indications: AFIB, AFLUTTER Medications: SEE CHART Protocol: LEXISCAN Max HR: 086 BPM 52% of Pred: 165 BPM Max BP: 152/072 mmHG Max Work Load: 1.0 METS Pharmacological stress test with Lexiscan injection, while sitting and kicking her legs, without anginal symptoms, without arrythmia, with normotensive response to injection, with nondiagnostic EKG for ischemia. Nuclear images pending. Test reviewed with Dr Nguyen. Referred By: Kenzie Bullock Overread By: KENZIE BULLOCK
== END ==
LOC: HO.CARD 09:17
PROVIDERS: PCP Family Medicine; Visit Provider Nurse Practitioner Family
DX: I48.92 Unspecified atrial flutter (principal); I10 Essential (primary) hypertension; E11.9 Type 2 diabetes mellitus without complications
CPT/HCPCS: 78452; 93017; A9500; J0280; J2785

== ENCOUNTER 2021-12-02 12:54 | Outpatient (REF) | payer MEDICARE, MEDICAID, SELFPAY ==
--- NOTE | ~2021-12-02 | MM_ITS ---
EXAMINATION: MM SCREENING DIGITAL BREAST TOMOSYNTHESIS, BILATERAL CLINICAL INFORMATION: Screening. Asymptomatic. Prior history reduction mammoplasty. Benign left breast biopsy 2012 (fibroadenoma). The lifetime risk of breast cancer based on the Tyrer-Cuzick Model is 7%. COMPARISON: Mammography: 12/01/2020, 11/14/2019, 08/06/2018 TECHNIQUE: Digital breast tomosynthesis is performed in both the craniocaudal and mediolateral oblique views along with computer-aided detection (CAD). Synthesized 2D images are generated from the tomosynthesis. FINDINGS: There are scattered areas of fibroglandular density (ACR BI-RADS breast composition Category b). Parenchymal pattern is similar to prior exams and there is no interval mass or architectural abnormality or developing density. Again, there are numerous benign round and rim calcifications, most all are dermal. There is a stable benign heavily calcified nodule periareolar left breast and stable nodularity central and inner left breast. The axilla are unremarkable. No significant changes. MM/MM tomosynthesis screening BI IMPRESSION: No mammographic evidence of malignancy. ASSESSMENT: BI-RADS 2: Benign RECOMMENDATION: Routine annual mammography screening. This patient's information was entered into a reminder system with a target due date for their next mammogram.
== END 2021-12-02 12:55 | disposition home or self-care (01) ==
LOC: HO.MAMMO 12:54
PROVIDERS: Visit Provider Family Medicine
DX: Z12.31 Encounter for screening mammogram for malignant neoplasm of breast (principal)
CPT/HCPCS: 77063; 77067

== ENCOUNTER → 2021-12-09 07:01 | Outpatient (REF) | payer MEDICARE, MEDICAID, SELFPAY ==
--- NOTE | 2021-12-09 07:06 | HM_ITS ---
* Total monitoring time 3 days and 6 hours. * Underlying rhythm is sinus. Average rate 59/Min. Range 43 to 102/Min. * No atrial fibrillation or flutter or AV blocks or pauses. * Very rare supraventricular and ventricular ectopy. Minimal burden. * One short run of 7 beats, irregular- probably supraventricular ectopy with aberrant conduction and less likely ventricular origin. * No patient events. MTDD
== END ==
LOC: HO.CARD 07:01
PROVIDERS: PCP Family Medicine; Visit Provider Nurse Practitioner Family
DX: I48.92 Unspecified atrial flutter (principal)
CPT/HCPCS: 93242

== ENCOUNTER → 2021-12-13 13:42 | Outpatient (BNVA) | payer MEDICARE, MEDICAID, SELFPAY | PROVIDERS: PCP Family Medicine; Visit Provider Orthopaedic Surgery | DX: M17.11 Unilateral primary osteoarthritis, right knee (principal); E11.9 Type 2 diabetes mellitus without complications; E66.01 Morbid (severe) obesity due to excess calories | CPT/HCPCS: 20610; 99212; J1100 ==

== ENCOUNTER → 2022-01-04 13:27 | Outpatient (BNVA) | payer MEDICARE, MEDICAID, SELFPAY | PROVIDERS: PCP Family Medicine; Referring Provider Family Medicine; Visit Provider Nurse Practitioner Family | DX: I42.9 Cardiomyopathy, unspecified (principal); I48.92 Unspecified atrial flutter; I10 Essential (primary) hypertension; Z79.01 Long term (current) use of anticoagulants; Z79.899 Other long term (current) drug therapy | CPT/HCPCS: 99212; J0461 ==

== ENCOUNTER 2022-01-06 11:00 | Outpatient (REF) | payer MEDICARE, MEDICAID, SELFPAY ==
[2022-01-06 12:29] LABS: Anion Gap 11 (12-20); Blood Urea Nitrogen 16 mg/dL (9-16); Calcium 8.7 mg/dL (8.4-10.2); Carbon Dioxide 26 mmol/L (22-29); Chloride 108 mmol/L (96-108); Estimated Glomerular Filt Rate > 60; Glucose Random 132 mg/dL (60-115); Potassium 4.2 mmol/L (3.3-5.1); Sodium 141 mmol/L (135-145)
== END 2022-01-06 11:01 | disposition home or self-care (01) ==
LOC: HO.LAB 11:00
PROVIDERS: PCP Family Medicine; Visit Provider Nurse Practitioner Family
DX: I10 Essential (primary) hypertension (principal)
CPT/HCPCS: 36415; 80048

== ENCOUNTER → 2022-02-11 08:30 | Outpatient (REF) | payer MEDICARE, MEDICAID, SELFPAY ==
--- NOTE | 2022-02-11 09:24 | CA_ITS ---
Transthoracic Echocardiogram Limited Patient (Last, First, Middle): Ashley Pavon, Gender: Female Date of : 1965 Age: 56 Procedure Date: 02/11/2022 Procedure Type: Transthoracic Echocardiogram Limited Location: OP Height: 157.48 cm Weight: 107.96 kg BSA: 2.06 m2 Heart Rate: bpm BP: 140 / 90 mmHg Psychology Lecturer: TO Referring MD: Kenzie Bullock SOFTWARE APPLICATIONS SPECIALISTMaryC Symptoms: I42.9 - Cardiomyopathy, unspecified Study Quality: Fair ECG Rhythm: Sinus Conclusions: - The left ventricular systolic function is mildly decreased. The calculated ejection fraction is 49% by biplane method. Findings Left Ventricle Normal left ventricular cavity size. There is normal left ventricular wall thickness. The left ventricular systolic function is mildly decreased. The calculated ejection fraction is 49% by biplane method. There is mild global hypokinesis. Right Ventricle Normal right ventricular cavity size and systolic function. Tricuspid Valve There is no evidence of pulmonary hypertension. Venous The inferior vena cava is normal in size and collapses greater than 50% with inspiration. Prior Study Comparison Changes noted compared to prior study dated: 10/25/2021. Slight increase in LVEF. Measurements 2D Linear Measurements IVSd: 0.93 0.6-0.9/0.6-1.0 cm LVIDd: 5.49 3.9-5.3/4.2-5.9 cm LVIDd Index: 2.67 2.4-3.2/2.2-3.1 cm/m2 LVIDs: 3.82 2.0-3.6 cm LVPWd: 0.99 0.7-1.1 cm LA Diam: 4.30 2.7-3.8/3.0-4.0 cm LAIDs Index: 2.09 1.5-2.3 cm/m2 LV Mass: 251.74 67-162/88-224 g LV Mass Index: 122.20 43-95/49-115 g/m2 2D Systolic Function EF 4C: 48.60 >55% EF 2C: 49.90 >55% EF BiP: 48.70 >55% Mitral Valve E'Lateral: 6.31 E'Medial: 6.31 Diastolic Function E'Medial: 6.31 E' Laterial: 6.31 Right Ventricle TAPSE (mm): 27.00 TVS' Lincoln: 13.00 Tricuspid Valve TR Pk Lincoln: 2.46 TR Pk Grad: 24.00 RA Press: 3.00 RVSP: 27.00 Updated in Other Vendor System with Status of Final Gibran Pappas MD electronically signed on 02/13/2022 12:24:15 PM with status of Final
== END ==
LOC: HO.CARD 08:30
PROVIDERS: PCP Family Medicine; Visit Provider Nurse Practitioner Family
DX: I42.9 Cardiomyopathy, unspecified (principal)
CPT/HCPCS: 93308

== ENCOUNTER → 2022-03-08 14:09 | Outpatient (BNVA) | payer MEDICARE, MEDICAID, SELFPAY | PROVIDERS: PCP Family Medicine; Referring Provider Family Medicine; Visit Provider Nurse Practitioner Family | DX: I48.92 Unspecified atrial flutter (principal); I42.9 Cardiomyopathy, unspecified; I10 Essential (primary) hypertension; Z79.01 Long term (current) use of anticoagulants; Z79.899 Other long term (current) drug therapy | CPT/HCPCS: 99212 ==

== ENCOUNTER 2022-03-25 09:51 | Day surgery (SDC) | payer MEDICARE, MEDICAID, SELFPAY ==
[2022-03-22 15:24] VITALS: BMI 44.0
--- NOTE | 2022-03-24 09:43 | P.CONAN_ITS ---
Documented by User: Sonam Dominguez NP 03/24/22 09:47 HPI - Anesthesia Eval Consult details Narrative: 56yo F for Colonoscopy Xarelto for afib s/p cardioversion 10/2021 with MAC PMFSH Active Problems Active Problems: All Active Problems (Updated 03/22/22 @ 15:14 by Cindy Serrano, RN) Language barrier (Acute) Bladder pain (Acute) Vaginal itching (Acute) Bacterial vaginosis (Acute) Osteoarthritis of right knee (Acute) Morbid obesity (Acute) Women's annual routine gynecological examination (Acute) Cervical cancer screening (Acute) Encounter for screening colonoscopy (Acute) Poor historian (Acute) Fibroids (Acute) New onset atrial flutter (Acute) Hypersomnia (Acute) Cardiomyopathy (Acute) Hospital discharge follow-up (Acute) Atrial flutter (Acute) On anticoagulant therapy (Acute) HTN (hypertension) (Acute) Diabetes (Acute) Abdominal pain (Acute) Past Medical History Medical History (Updated 03/22/22 @ 15:14 by Cindy Serrano RN) Abdominal pain Anemia Arthritis Atrial fibrillation Atrial fibrillation and flutter Atrial flutter, paroxysmal Depression Diabetes Diabetes Essential hypertension GERD (gastroesophageal reflux disease) Hepatitis History of cardioversion HTN (hypertension) Hypercholesteremia Lab test negative for COVID-19 virus On anticoagulant therapy On beta pat at home Family History Family history of problems with anesthesia: No Surgical History Surgical History Bariatric surgery status Hx of abdominal surgery Hx of section Hx of cholecystectomy Hx of dilation and curettage Hx of excision of mass Hx of gastric bypass Hx of reduction mammoplasty Hx of tubal ligation History of Problems with Anesthesia: No Social History Social History Household Members: Children Housing: Apartment Are you a primary health care manager to a significant other at home: No Do you presently have visiting nurse or other home services: No Alcohol intake: never Patient Tobacco Use Status: Never used Tobacco e-Cigarette/Vaping Use: Never Used Use of substances other than those prescribed or required for medical reasons: No Have you been hit, kicked, punched, or otherwise hurt by someone within the past year? If so, by whom?: No Are you DNR?: No Advance Directives: Yes Advance Directives on File: Yes Advance Directives Date on File: 11/09/21 Recently lost weight without trying: No Nutrition Risks: No Nutritional Risk Patient : No service: No Current occupational status: disabled Current occupation: rt handed Meds Allergies Allergy/AdvReac Type Severity Reaction Status Date / Time No Known Allergies Allergy Verified 03/08/22 14:16 [No Known Allergies*] Home Medications Medication Instructions Recorded Confirmed Last Taken Type baclofen 10 mg tablet 10 mg PO TID PRN Spasms 04/29/20 03/22/22 Unknown History cholecalciferol (vitamin D3) 50 50 mcg PO DAILY 04/29/20 03/22/22 11/06/21 History mcg (2,000 unit) tablet (Vitamin D3) multivitamin 1 tab PO DAILY 04/29/20 03/22/22 11/06/21 History omeprazole 20 mg tablet,delayed 20 mg PO DAILY 04/29/20 03/22/22 11/06/21 History release fluticasone propionate 50 1 - 2 spray intranasal DAILY PRN 10/22/21 03/22/22 Unknown History mcg/actuation nasal Allergy Symptoms spray,suspension atorvastatin 80 mg tablet 80 mg PO BEDTIME 10/27/21 03/22/22 11/05/21 History insulin glargine 100 unit/mL (3 12 unit subcut BEDTIME 11/06/21 03/22/22 11/05/21 History mL) subcutaneous pen (Lantus Solostar U-100 Insulin) acetaminophen 650 mg 650 mg PO Q8H PRN fever 01/04/22 03/22/22 Unknown History tablet,extended release docusate sodium 100 mg capsule 100 mg PO BID PRN Constipation 01/04/22 03/22/22 Unknown History fluoxetine 20 mg capsule 40 mg PO DAILY 01/04/22 03/22/22 Unknown History loratadine 10 mg tablet 10 mg PO DAILY PRN Allergy Symptoms 01/04/22 03/22/22 Unknown History metformin 500 mg tablet,extended 2,000 mg PO BID 01/04/22 03/22/22 Unknown History release 24 hr trazodone 100 mg tablet 200 mg PO BEDTIME PRN Insomnia 01/04/22 03/22/22 Unknown History lisinopril 5 mg tablet 10 mg PO DAILY 03/08/22 03/22/22 Unknown History sennosides 8.6 mg tablet (senna) 17.2 mg PO BEDTIME PRN constipation 03/08/22 03/22/22 Unknown History Exam Exam Date and Time: March 24, 2022 0943 Height,Weight and Vital Signs: Height 5 ft 2 in Weight 109.316 kg Pertinent Lab Results Pertinent Lab Results: Laboratory Tests 11/13/21 01/06/22 15:42 11:23 WBC 9.7 Hgb 12.5 Hct 36.9 L Plt Count 316 Sodium 141 Potassium 4.2 Chloride 108 Carbon Dioxide 26 BUN 16 Creatinine 0.75 Narrative Narrative: ECHO 01/2022 Conclusions: - The left ventricular systolic function is mildly decreased.? ? The calculated ejection fraction is 49% by biplane method.? 3 Day Holter 12/2021 * Total monitoring time 3 days and 6 hours. * Underlying rhythm is sinus.? Average rate 59/Min.? Range 43 to 102/Min. * No atrial fibrillation or flutter or AV blocks or pauses. * Very rare supraventricular and ventricular ectopy.? Minimal burden. * One short run of 7 beats, irregular- probably supraventricular ectopy with aberrant conduction and less likely ventricular origin. * No patient events. NM cardiolite stress test 10/2021 Impression: ? 1.? Myocardial perfusion imaging study shows likely normal myocardial perfusion 2.? Gated LVEF is 46% 3. Transient ischemic dilatation not present but LV cavity is mildly dilated ? EKG is nondiagnostic for ischemia Assessment and Plan Assessment Anesthesia Assessment: Chart Reviewed Final Anesthetic Review Family History of Problems with Anesthesia: No History of Problems with Anesthesia: No Documented by User: Mireya Bauer MD 03/25/22 11:22 [facility] Past Medical History Medical History (Updated 03/22/22 @ 15:14 by Cindy Serrano RN) Abdominal pain Anemia Arthritis Atrial fibrillation Atrial fibrillation and flutter Atrial flutter, paroxysmal Depression Diabetes Diabetes Essential hypertension GERD (gastroesophageal reflux disease) Hepatitis History of cardioversion HTN (hypertension) Hypercholesteremia Lab test negative for COVID-19 virus On anticoagulant therapy On beta pat at home Surgical History Surgical History Bariatric surgery status Hx of abdominal surgery Hx of section Hx of cholecystectomy Hx of dilation and curettage Hx of excision of mass Hx of gastric bypass Hx of reduction mammoplasty Hx of tubal ligation Social History Social History Household Members: Children Housing: Apartment Are you a primary health care manager to a significant other at home: No Do you presently have visiting nurse or other home services: No Alcohol intake: never Patient Tobacco Use Status: Never used Tobacco e-Cigarette/Vaping Use: Never Used Use of substances other than those prescribed or required for medical reasons: No Have you been hit, kicked, punched, or otherwise hurt by someone within the past year? If so, by whom?: No Are you DNR?: No Advance Directives: Yes Advance Directives on File: Yes Advance Directives Date on File: 11/09/21 Recently lost weight without trying: No Nutrition Risks: No Nutritional Risk Patient : No service: No Current occupational status: disabled Current occupation: rt handed Meds Allergies Allergy/AdvReac Type Severity Reaction Status Date / Time No Known Allergies Allergy Verified 03/08/22 14:16 [No Known Allergies*] Home Medications Medication Instructions Recorded Confirmed Last Taken Type baclofen 10 mg tablet 10 mg PO TID PRN Spasms 04/29/20 03/22/22 Unknown History cholecalciferol (vitamin D3) 50 50 mcg PO DAILY 04/29/20 03/22/22 11/06/21 History mcg (2,000 unit) tablet (Vitamin D3) multivitamin 1 tab PO DAILY 04/29/20 03/22/22 11/06/21 History omeprazole 20 mg tablet,delayed 20 mg PO DAILY 04/29/20 03/22/22 11/06/21 History release fluticasone propionate 50 1 - 2 spray intranasal DAILY PRN 10/22/21 03/22/22 Unknown History mcg/actuation nasal Allergy Symptoms spray,suspension atorvastatin 80 mg tablet 80 mg PO BEDTIME 10/27/21 03/22/22 11/05/21 History insulin glargine 100 unit/mL (3 12 unit subcut BEDTIME 11/06/21 03/22/22 11/05/21 History mL) subcutaneous pen (Lantus Solostar U-100 Insulin) acetaminophen 650 mg 650 mg PO Q8H PRN fever 01/04/22 03/22/22 Unknown History tablet,extended release docusate sodium 100 mg capsule 100 mg PO BID PRN Constipation 01/04/22 03/22/22 Unknown History fluoxetine 20 mg capsule 40 mg PO DAILY 01/04/22 03/22/22 Unknown History loratadine 10 mg tablet 10 mg PO DAILY PRN Allergy Symptoms 01/04/22 03/22/22 Unknown History metformin 500 mg tablet,extended 2,000 mg PO BID 01/04/22 03/22/22 Unknown History release 24 hr trazodone 100 mg tablet 200 mg PO BEDTIME PRN Insomnia 01/04/22 03/22/22 Unknown History lisinopril 5 mg tablet 10 mg PO DAILY 03/08/22 03/22/22 Unknown History sennosides 8.6 mg tablet (senna) 17.2 mg PO BEDTIME PRN constipation 03/08/22 03/22/22 Unknown History Exam Airway Mallampati Class: II TM Dist: >3cm Neck ROM: Full Heart: rrr Lungs: cta Assessment and Plan Assessment Anesthesia Assessment: Anesthesia Plan Discussed and Chart Reviewed Final Anesthetic Review NPO: Yes ASA Class: III Final Preanesthetic Review: No Changes in Pt Med Stat, Meds/Allgs Chart Reviewed and Consent Obtained/Reviewed Patient Risk: Intermediate Procedure Risk: Intermediate Anesthetic Plan Anesthetic Plan: MAC: Disposition: Standard PACU
--- NOTE | 2022-03-25 10:16 | MHC.SHP ---
Pre-Procedural Eval Section A Date of Service: 03/25/22 The patient is an INPATIENT: No The History & Physical has been completed within 30 days and I have reviewed it.: No Section B Chief Complaint: screening Relevant Family History (Specify if Yes): No Present Medications: see Short Stay Collaborative assessment Medical History: Significant History (Abdominal pain Anemia Arthritis Depression Diabetes GERD (gastroesophageal reflux disease) Hepatitis HTN (hypertension) Hypercholesteremia Lab test negative for COVID-19 virus) History of Previous Operations: Relevant previous surgery/procedure and date(s) (Bariatric surgery status Hx of abdominal surgery Hx of section Hx of cholecystectomy Hx of dilation and curettage Hx of excision of mass Hx of gastric bypass Hx of reduction mammoplasty Hx of tubal ligation) Allergies: Allergies Allergy/AdvReac Type Severity Reaction Status Date / Time No Known Allergies Allergy Verified 03/08/22 14:16 [No Known Allergies*] Review of Systems Sugical H&P ROS: Negative: Constitution, Cardiovascular, Respiratory and Gastrointestinal Exam Surgical H&P Exam: Normal: Heart, Normal: Lungs, Normal: Extremities and Normal: Abdomen Plan Diagnosis/Plan: Unchanged I have reviewed the history and physical and performed a pertinent physical examination on my patient. No changes have occurred unless specified.
[2022-03-25 10:31] VITALS: BP 150/64; PULSE 47; RESP 18; TEMP 36.4; O2SAT 97
[2022-03-25 10:31] LABS: Glucose, Whole Blood 101 mg/dL (60-115)
[2022-03-25] MEDS: Lactated Ringers 1,000 ML 100 ML IVCONT (10:38)
--- NOTE | 2022-03-25 12:13 | P.BOP_ITS ---
Brief Operative Note Date of Service: 03/25/22 Pre-op diagnosis: Colon cancer screening Post-op diagnosis: other (Colon polyps, diverticulosis, hemorrhoids) Procedure: COLONOSCOPY TILL CECUM WITH BIOPSIES Consent: Indications for the procedure and potential complications of bleeding, perforation, reaction to medications and missed diagnosis were discussed with the patient and informed consent was obtained. Instrument: Olympus PCF H 190 L variable stiffness pediatric colonoscope Monitoring: Vital signs and clinical assessment, intermittent blood pressure monitoring, continuous EKG monitoring, Pulse oximetry and Carbon Dioxide monitoring were done throughout the procedure. Colon withdrawl time was 22 minutes. Procedure: The patient was placed in the left lateral decubitis position and pre-procedure medications were administered. After a digital rectal examination of the ano-rectum, the video colonoscope was inserted into the rectum and advanced through the colon to the cecum. The colonoscope was slowly withdrawn in a retrograde panoramic fashion and the colon mucosa was carefully examined including a retroflexed view of the rectum. Findings and interventions are described below. Procedure Difficulty: Without difficulty Findings: Terminal Ileum: Not evaluated Cecum: Normal Ascending Colon: A 4-5 mm sessile polyp in proximal AC removed with a cold biopsy Scattered diverticulosis throughout the colon Transverse Colon: Scattered diverticulosis throughout the colon Descending Colon: Scattered diverticulosis throughout the colon Sigmoid Colon: Moderate diverticulosis Rectum: Two 2-3 mm polyp removed with a cold bx Ano-rectum: Moderate internal hemorrhoids Colon preparation: Good after copious irrigation Impression and Post Procedure Diagnosis: Colonoscopy Findings: Three small polyps removed Moderate diverticulosis seen in the entire colon Moderate hemorrhoids on retroflexed exam. Plan: Await pathology results Patient has an appointment on 04/07/22 in the GI [facility] with SUSANNA Mendoza . Repeat Colonoscopy interval based on path results - in 3 - 5 years if polyps are adenomatous and 10 years if polyps are hyperplastic. Above findings were reviewed with the patient and colon polyps and diverticulosis handouts were given in the discharge area Surgeon: Tami Montero MD Anesthesia: MAC Was an University Relations Vice President used for this Procedure?: Yes University Relations Vice President: Jw Boykin Estimated blood loss (mL): 0 Pathology: other (A- ASCENDING COLON POLYP B- RECTAL POLYP) Condition: stable Disposition: PACU
[2022-03-25 12:14] VITALS: BP 131/66; PULSE 55; RESP 16; TEMP 36.5; O2SAT 99
[2022-03-25 12:29] VITALS: BP 160/75; PULSE 50; RESP 16; TEMP 36.5; O2SAT 99
--- NOTE | 2022-03-26 13:20 | W.PM.OPN ---
Operative Note Operative Note Date of Service: 03/25/22 Narrative: Pre-op diagnosis: Colon cancer screening Post-op diagnosis:?other (Colon polyps, diverticulosis, hemorrhoids) Procedure: COLONOSCOPY TILL CECUM WITH BIOPSIES Consent: Indications for the procedure and potential complications of bleeding, perforation, reaction to medications and missed diagnosis were discussed with the patient and informed consent was obtained. Instrument: Olympus PCF H 190 L variable stiffness pediatric colonoscope Monitoring: Vital signs and clinical assessment, intermittent blood pressure monitoring, continuous EKG monitoring, Pulse oximetry and Carbon Dioxide monitoring were done throughout the procedure. Colon withdrawl time was 22 minutes. Procedure: The patient was placed in the left lateral decubitis position and pre-procedure medications were administered. After a digital rectal examination of the ano-rectum, the video colonoscope was inserted into the rectum and advanced through the colon to the cecum. The colonoscope was slowly withdrawn in a retrograde panoramic fashion and the colon mucosa was carefully examined including a retroflexed view of the rectum. Findings and interventions are described below. Procedure Difficulty: Without difficulty Findings: Terminal Ileum: Not evaluated Cecum:? Normal Ascending Colon:? A 4-5 mm sessile polyp in proximal AC removed with a cold biopsy Scattered diverticulosis throughout the colon Transverse Colon:? Scattered diverticulosis throughout the colon Descending Colon:? Scattered diverticulosis throughout the colon Sigmoid Colon:? Moderate diverticulosis Rectum:? Two 2-3 mm polyp removed with a cold bx Ano-rectum:? Moderate internal hemorrhoids Colon preparation:? Good after copious irrigation Impression and Post Procedure Diagnosis: Colonoscopy Findings: Three small polyps removed Moderate diverticulosis seen in the entire colon Moderate hemorrhoids on retroflexed exam. Plan: Await pathology results Patient has an appointment on 04/07/22 in the GI Clinic with SUSANNA Mendoza . Repeat Colonoscopy interval based on path results - in 3 - 5 years if polyps are adenomatous and 10 years if polyps are hyperplastic. Above findings were reviewed with the patient and colon polyps and diverticulosis handouts were given in the discharge area Surgeon: Tami Montero MD Anesthesia:?MAC Was an Manager Web Application used for this Procedure?:?Yes Manager Web Application:?Jw Boykin Estimated blood loss (mL):?0 Pathology:?other (A- ASCENDING COLON POLYP? B- RECTAL POLYP) Condition:?stable Disposition:?PACU
== END 2022-03-25 13:04 | disposition home or self-care (01) ==
PROVIDERS: PCP Family Medicine; Visit Provider Internal Medicine Gastroenterology
PROC: 0DJD8ZZ Inspection of Lower Intestinal Tract, Via Natural or Artificial Opening Endoscopic (ICD-10-PCS; CPT 45378; principal; 2022-03-25 10:50)
DX: Z12.11 Encounter for screening for malignant neoplasm of colon (principal); D12.2 Benign neoplasm of ascending colon; K62.1 Rectal polyp; K57.30 Diverticulosis of large intestine without perforation or abscess without bleeding; K64.8 Other hemorrhoids; K21.9 Gastro-esophageal reflux disease without esophagitis; D64.9 Anemia, unspecified; I10 Essential (primary) hypertension; E78.00 Pure hypercholesterolemia, unspecified; E11.9 Type 2 diabetes mellitus without complications; Z79.84 Long term (current) use of oral hypoglycemic drugs; Z79.82 Long term (current) use of aspirin; Z79.899 Other long term (current) drug therapy; Z98.84 Bariatric surgery status
CPT/HCPCS: 45380; 82947; 88305

== ENCOUNTER 2022-03-31 10:46 | Outpatient (REF) | payer MEDICARE, MEDICAID, SELFPAY ==
--- NOTE | ~2022-03-31 | US_ITS ---
EXAMINATION: US PELVIS COMPLETE CLINICAL INFORMATION: Abnormal uterine bleeding vaginal bleeding. COMPARISON: Pelvic ultrasound dated 08/20/2021. TECHNIQUE: Transabdominal imaging was performed. FINDINGS: The uterus is of normal size and echogenicity measuring 10.0 x 6.8 x 4.5 cm. A regular homogeneous endometrium is identified measuring 5-6 mm FIBROIDS: There are 7 fibroids seen. 1. Location: Leftward fundus, subserosal. Size: 2.9 x 2.6 x 3.4 cm. Prior: 3.5 x 3.5 x 3.0 cm. Fibroid characteristics: Heterogeneous echotexture. 2. Location: Rightward fundus, subserosal. Size: 2.3 x 2.4 x 2.0 cm. Prior: 2.8 x 2.5 x 2.3 cm. Fibroid characteristics: Heterogeneous echotexture. 3. Location: Mid to leftward fundus. Size: 3.4 x 3.3 x 3.6 cm. Prior: Not seen with certainty. Fibroid characteristics: Isoechoic. 4. Location: Upper rightward body, myometrial. Size: 2.5 x 2.6 x 2.4 cm. Prior: Not seen with certainty. Fibroid characteristics: Isoechoic. 5. Location: Mid body, subendometrial. Size: 2.5 x 2.5 x 2.5 cm. Prior: Not seen with certainty. Fibroid characteristics: Heterogeneously isoechoic. 6. Location: Lower rightward body, myometrial. Size: 1.5 x 1.5 x 2.0 cm. Prior: 1.5 x 1.4 x 1.3 cm. Fibroid characteristics: Heterogeneous echotexture. 7. Location: Lower rightward body, myometrial. Size: 1.7 x 2.0 x 2.0 cm. Prior: Not seen with certainty. Fibroid characteristics: Isoechoic. The right ovary is normal in echotexture, measuring 5.5 x 4.9 x 3.9 cm for a volume of 55.0 mL. The right ovary contains 3.9 x 3.6 x 3.5 cm and 1.7 x 1.8 x 1.8 cm anechoic, simple cysts. The left ovary is not visualized. There is no pelvic free fluid. No adnexal mass is seen. US/US pelvic and transvaginal IMPRESSION: 1. Multiple uterine fibroids are seen, as detailed. 2. The endometrial stripe thickness of 5-6 mm is at the upper limits of normal for a postmenopausal patient. Gynecology evaluation management is recommended, with consideration for tissue sampling, if clinically appropriate. 3. Right ovarian simple cysts are noted, the largest showing a maximal diameter 3.9 cm. Annual pelvic ultrasound follow-up is recommended.
== END 2022-03-31 10:47 | disposition home or self-care (01) ==
LOC: HO.US 10:46
PROVIDERS: Visit Provider Obstetrics & Gynecology
DX: N93.9 Abnormal uterine and vaginal bleeding, unspecified (principal); D21.9 Benign neoplasm of connective and other soft tissue, unspecified
CPT/HCPCS: 76830; 76856

== ENCOUNTER → 2022-04-07 11:57 | Outpatient (BNVA) | payer MEDICARE, MEDICAID, SELFPAY | PROVIDERS: PCP Family Medicine; Visit Provider Physician Assistant | DX: K64.9 Unspecified hemorrhoids (principal); K57.90 Diverticulosis of intestine, part unspecified, without perforation or abscess without bleeding; D36.9 Benign neoplasm, unspecified site | CPT/HCPCS: 99212 ==

== ENCOUNTER → 2022-04-14 14:17 | Outpatient (BNVA) | payer MEDICARE, MEDICAID, SELFPAY | PROVIDERS: PCP Family Medicine; Visit Provider Obstetrics & Gynecology | DX: D21.9 Benign neoplasm of connective and other soft tissue, unspecified (principal) | CPT/HCPCS: Q3014 ==

== ENCOUNTER → 2022-08-05 09:33 | Outpatient (BNVA) | payer MEDICARE, MEDICAID, SELFPAY | PROVIDERS: PCP Family Medicine; Visit Provider Physician Assistant | DX: M17.11 Unilateral primary osteoarthritis, right knee (principal); E11.9 Type 2 diabetes mellitus without complications; E66.01 Morbid (severe) obesity due to excess calories; Z68.41 Body mass index [BMI] 40.0-44.9, adult | CPT/HCPCS: 99212 ==

== ENCOUNTER 2022-08-13 18:47 | Emergency (ER) | payer MEDICARE, MEDICAID, SELFPAY ==
[2022-08-13] VITALS (7 sets, daily range): BP systolic 149–214; BP diastolic 64–87; PULSE 48–51; RESP 16; TEMP 36.3–36.7; O2SAT 98–99; BMI 43.0
--- NOTE | ~2022-08-13 | XR_ITS ---
EXAMINATION: CHEST 2 VIEWS CLINICAL INFORMATION: Dizziness/headache . COMPARISON: 11/13/2021. TECHNIQUE: PA and lateral views of the chest obtained. FINDINGS: The lungs are mildly hypoexpanded. No focal infiltrate, effusion, edema, or pneumothorax. Cardiac and mediastinal silhouettes are within normal limits for technique. No acute bony abnormality seen XR/XR chest 2V IMPRESSION: No evidence of acute disease
--- NOTE | ~2022-08-13 | CT_ITS ---
EXAMINATION: CT HEAD WITHOUT CONTRAST CLINICAL INFORMATION: Dizziness/headache COMPARISON: Head CT 06/20/2017 TECHNIQUE: Imaging was performed from the skull base to vertex without intravenous administration of contrast. This CT examination was performed using dose optimization techniques as appropriate, variously including the following: *Automated exposure control *Adjustment of mA and/or kV according to patient size (this includes techniques or standardized protocols for targeted exams where dose is matched to indication/reason for exam; i.e. extremities or head) *Use of iterative reconstruction technique Total exam dose length product: 693 mGy-cm FINDINGS: No intra or extra-axial fluid collection, hemorrhage, or mass. No ventriculomegaly. No midline shift or herniation. Basal cisterns are patent. Justice-white matter differentiation is maintained. No territorial encephalomalacia. Partially empty sella. No significant volume loss. There is no abnormal attenuation within the brain parenchyma. No calvarial fracture or soft tissue abnormality. Hyperostosis frontalis interna The mastoid air cells and visualized portions of the paranasal sinuses are well aerated. CT/CT head/brain wo IV con IMPRESSION: 1. No acute intracranial pathology.
--- NOTE | 2022-08-13 19:19 | ED.HA ---
HPI - Headache General Chief Complaint: Headache <SUSANNA Babb - Last Filed: 08/13/22 19:26> Stated Complaint: Headache/ high BP <SUSANNA Babb - Last Filed: 08/13/22 19:26> Time Seen by Provider: 08/13/22 19:25 <SUSANNA Babb - Last Filed: 08/13/22 19:26> Source: patient <SUSANNA Grimm - Last Filed: 08/14/22 17:59> Mode of arrival: ambulatory <SUSANNA Grimm - Last Filed: 08/14/22 17:59> Limitations: no limitations <SUSANNA Grimm Last Filed: 08/14/22 17:59> History of Present Illness HPI Narrative: 56-year-old female history of high blood pressure presents to ED for headache and elevated blood pressure. Patient states having headache since yesterday. Patient denies any chest pain, shortness of breath, change in vision, nausea, vomiting, jaw pain neck pain, fever, chills, loss of vision, slurred speech, or paralysis of extremities <SUSANNA Grimm - Last Filed: 08/14/22 17:59> Related Data Home Medications: Home Medications Medication Instructions Recorded Confirmed baclofen 10 mg tablet 10 mg PO TID PRN Spasms 04/29/20 04/07/22 cholecalciferol (vitamin D3) 50 50 mcg PO DAILY 04/29/20 04/07/22 mcg (2,000 unit) tablet (Vitamin D3) multivitamin 1 tab PO DAILY 04/29/20 04/07/22 omeprazole 20 mg tablet,delayed 20 mg PO DAILY 04/29/20 04/07/22 release fluticasone propionate 50 1 - 2 spray intranasal DAILY PRN 10/22/21 04/07/22 mcg/actuation nasal Allergy Symptoms spray,suspension atorvastatin 80 mg tablet 80 mg PO BEDTIME 10/27/21 04/07/22 insulin glargine 100 unit/mL (3 12 unit subcut BEDTIME 11/06/21 04/07/22 mL) subcutaneous pen (Lantus Solostar U-100 Insulin) acetaminophen 650 mg 650 mg PO Q8H PRN fever 01/04/22 04/07/22 tablet,extended release docusate sodium 100 mg capsule 100 mg PO BID PRN Constipation 01/04/22 04/07/22 fluoxetine 20 mg capsule 40 mg PO DAILY 01/04/22 04/07/22 loratadine 10 mg tablet 10 mg PO DAILY PRN Allergy Symptoms 01/04/22 04/07/22 metformin 500 mg tablet,extended 2,000 mg PO BID 01/04/22 04/07/22 release 24 hr trazodone 100 mg tablet 200 mg PO BEDTIME PRN Insomnia 01/04/22 04/07/22 lisinopril 5 mg tablet 10 mg PO DAILY 03/08/22 04/07/22 sennosides 8.6 mg tablet (senna) 17.2 mg PO BEDTIME PRN constipation 03/08/22 04/07/22 Previous Rx's Medication Instructions Recorded insulin lispro 100 unit/mL 1 sliding scale dose subcut 10/26/21 subcutaneous pen (Humalog KwikPen QIDACHS #15 mL (U-100) Insulin) metoprolol tartrate 100 mg tablet 100 mg PO BID #60 tabs 10/26/21 pen needle, diabetic 32 gauge x #100 ea 10/26/21/ rivaroxaban 20 mg tablet (Xarelto) 20 mg PO DAILY@1700 #30 tabs 10/26/21 cefuroxime axetil 250 mg tablet 250 mg PO Q12H #14 tabs 11/08/21 magnesium oxide 400 mg PO DAILY #30 tabs 11/14/21 diclofenac sodium 75 mg 75 mg PO BID PRN pain #60 tabs 08/05/22 tablet,delayed release lisinopril 20 mg tablet 20 mg PO DAILY 14 days #14 tabs 08/14/22 <SUSANNA Babb - Last Filed: 08/13/22 19:26> Allergies/Adverse Reactions: Allergies Allergy/AdvReac Type Severity Reaction Status Date / Time No Known Allergies Allergy Verified 04/07/22 11:58 [No Known Allergies*] <SUSANNA Babb - Last Filed: 08/13/22 19:26> Review of Systems Review of Systems: Headache and elevated blood pressure <SUSANNA Grimm - Last Filed: 08/14/22 17:59> Yes all other systems are reviewed and are negative <SUSANNA Grimm - Last Filed: 08/14/22 17:59> PMFSH Past Medical History Medical History: Medical History Abdominal pain Anemia Arthritis Atrial fibrillation Atrial fibrillation and flutter Atrial flutter, paroxysmal Depression Diabetes Diabetes Essential hypertension GERD (gastroesophageal reflux disease) Hepatitis History of cardioversion HTN (hypertension) Hypercholesteremia Lab test negative for COVID-19 virus On anticoagulant therapy On beta pat at home <SUSANNA Babb - Last Filed: 08/13/22 19:26> Surgical History: Surgical History Bariatric surgery status Hx of abdominal surgery Hx of section Hx of cholecystectomy Hx of dilation and curettage Hx of excision of mass Hx of gastric bypass Hx of reduction mammoplasty Hx of tubal ligation <SUSANNA Babb - Last Filed: 08/13/22 19:26> Social History Social History: Social History Household Members: Children Housing: Apartment Are you a primary manager progressive care to a significant other at home: No Do you presently have visiting nurse or other home services: No Alcohol intake: never Patient Tobacco Use Status: Never used Tobacco Smoked in Last 30 Days: No e-Cigarette/Vaping Use: Never Used Use of substances other than those prescribed or required for medical reasons: No Advance Directives: No Advance Directives Information Provided: No Advance Directives Date on File: 11/09/21 Patient : No service: No Current occupational status: disabled Current occupation: rt handed <SUSANNA Babb - Last Filed: 08/13/22 19:26> Physical Exam Vital Signs: Vital Signs: Last Vital Signs Temp 98.1 F 08/13/22 21:18 Pulse 49 L 08/14/22 00:28 Resp 11 L 08/14/22 00:28 BP 160/72 H 08/14/22 00:28 Pulse Ox 97 08/14/22 00:28 O2 Del Method 08/14/22 00:28 BMI result Body Mass Index 43.0 <SUSANNA Babb - Last Filed: 08/13/22 19:26> Vital Signs: Last Vital Signs Temp 98.1 F 08/13/22 21:18 Pulse 49 L 08/14/22 00:28 Resp 11 L 08/14/22 00:28 BP 160/72 H 08/14/22 00:28 Pulse Ox 97 08/14/22 00:28 O2 Del Method 08/14/22 00:28 BMI result Body Mass Index 43.0 <SUSANNA Grimm Last Filed: 08/14/22 17:59> Const: General: cooperative, healthy appearing, comfortable, no acute distress, well developed, alert, awake and Physically active <SUSANNA Grimm Last Filed: 08/14/22 17:59> HEENT: Head: Yes normal to inspection, Yes No palpable skull fracture present, Yes normocephalic, Yes atraumatic and No abrasion <SUSANNA Grimm Last Filed: 08/14/22 17:59> Eyes: General: appearance normal, both eyes and all related structures <SUSANNA Grimm Last Filed: 08/14/22 17:59> Neck: Neck: Yes normal visual inspection, Yes full ROM, Yes no lymphadenopathy, Yes no meningeal signs, Yes trachea midline, Yes supple, No anterior neck swelling and No tender <SUSANNA Grimm Last Filed: 08/14/22 17:59> Chest: Chest palpation & inspection: normal inspection of the chest and normal palpation of entire chest wall <SUSANNA Grimm Last Filed: 08/14/22 17:59> Resp: Effort & Inspection: normal respiratory effort and able to speak in complete sentences <SUSANNA Grimm Last Filed: 08/14/22 17:59> Auscultation: clear to auscultation bilaterally <SUSANNA Grimm Last Filed: 08/14/22 17:59> Cardio: Jugular venous distension: no JVD <SUSANNA Grimm Last Filed: 08/14/22 17:59> Heart sounds: S1 normal heart sound present and S2 normal heart sound present <SUSANNA Grimm Last Filed: 08/14/22 17:59> GI: Inspection: Yes normal to inspection and No abdominal wall ecchymosis <SUSANNA Grimm Last Filed: 08/14/22 17:59> Palpation (GI): Soft to palpation, not firm, nontender, no guarding and not rigid <SUSANNA Grimm Last Filed: 08/14/22 17:59> : General: No CVA tenderness and Yes no CVA tenderness <SUSANNA Grimm Last Filed: 08/14/22 17:59> Back/Spine/Pelvis: Back: no CVA tenderness, No CVA tenderness and No back tenderness <SUSANNA Grimm Last Filed: 08/14/22 17:59> Skin: General skin exam: no rashes or lesions noted and elasticity normal <SUSANNA Grimm Last Filed: 08/14/22 17:59> Neuro: Other: Negative facial droop. Negative slurred speech. Negative photophobia. Negative pronator drift. All extremities equal strength 5+. [id number] and rapid hand movement intact. Negative Romberg. <SUSANNA Grimm Last Filed: 08/14/22 17:59> General: no meningeal signs <SUSANNA Grimm Last Filed: 08/14/22 17:59> Extrem: General: Yes normal to inspection and Yes full ROM <SUSANNA Grimm Last Filed: 08/14/22 17:59> Psych: Appearance: grossly normal, well kempt and not disheveled <SUSANNA Grimm Last Filed: 08/14/22 17:59> Course Course Course Narrative: CHAZ- 19:20PM - 56yoF who is [place] speaking with daughter at bedside who is helping to translate with a past medical history of atrial fibrillation currently on Xarelto, hypertension, hyperlipidemia, diabetes, hepatitis, GERD, anemia and depression was presenting to the ER with her daughter at bedside with the headache to the left side of her head that started yesterday worse today that has been persistent with associated dizziness. Reports that the headache initially started diffusely all over her head although it has now subsided to the only the left side. Reports she has had headaches in the past although this feels different. Denies any fevers, change in vision, nausea/vomiting, jaw pain, paresthesias, weakness, focal weakness, chest pain or shortness of breath or any other symptoms complaints or concerns at this time. Patient taking her blood pressure medications at this time. Plan: Will obtain labs, EKG, CT scan of brain, chest x-ray. Patient will be sent back to a room to be evaluated in the ED. <SUSANNA Babb - Last Filed: 08/13/22 19:26> Reevaluation(s) Reevaluation #1: Patient hypertensive. Repeat blood pressure systolic over 200. Heart rate 49. Clonidine 0.2 ordered. negative for any neuro deficits. Waiting for results of head CT. First troponin negative. <SUSANNA Grimm - Last Filed: 08/14/22 17:59> Reevaluation #2: Patient's blood pressure improved with clonidine. Patient has sinus bradycardia. Patient denies any dizziness, nausea, vomiting, weakness. Patient's headache resolved due to blood pressure control. Case was discussed with attending Dr. Villegas recommend patient stop taking metoprolol and increase her lisinopril to 20 mg. Patient informed to stop the metoprolol due to her bradycardia. Patient will be sent new prescription also for 20 mg daily. Neuro exam intact. Patient denies any chest pain shortness of breath or dizziness. Second troponin is negative. <SUSANNA Grimm - Last Filed: 08/14/22 17:59> Time: 00:30 <SUSANNA Grimm - Last Filed: 08/14/22 17:59> Medications Administered Discontinued Medications Generic Name Dose Route Start Last Admin Trade Name Freq PRN Reason Stop Dose Admin Clonidine HCl 0.2 mg 08/13/22 21:32 08/13/22 21:36 Clonidine Hcl 0.2 Mg Tablet PO 08/13/22 21:33 0.2 mg ONCE ONE Administration Protocol <SUSANNA Babb - Last Filed: 08/13/22 19:26> Medications Administered Discontinued Medications Generic Name Dose Route Start Last Admin Trade Name Freq PRN Reason Stop Dose Admin Clonidine HCl 0.2 mg 08/13/22 21:32 08/13/22 21:36 Clonidine Hcl 0.2 Mg Tablet PO 08/13/22 21:33 0.2 mg ONCE ONE Administration Protocol <SUSANNA Grimm - Last Filed: 08/14/22 17:59> Medical Decision Making Medical Decision Making MDM Narrative: 56-year-old female presents to ED for hypertension and headache. Patient negative workup. Patient had cardiac and neuro evaluation. <SUSANNA Grimm Last Filed: 08/14/22 17:59> Differential Diagnosis Differential Diagnoses: The differential diagnosis associated with the presentation includes (Hypertensive headache. Hypertensive urgency. Stroke, OK) <SUSANNA Grimm - Last Filed: 08/14/22 17:59> Admission/Observation Consideration of admission/observation: Escalation of care including admission/observation considered <SUSANNA Grimm - Last Filed: 08/14/22 17:59> observation was considered <SUSANNA Grimm - Last Filed: 08/14/22 17:59> Lab Data MDM Lab Attestation statement: I reviewed the patient's lab results. <SUSANNA Grimm - Last Filed: 08/14/22 17:59> Result Diagrams: 08/13/22 19:59 08/13/22 19:59 <SUSANNA Babb - Last Filed: 08/13/22 19:26> Labs: Lab Results 08/13/22 08/13/22 08/13/22 Range/Units 19:59 19:59 19:59 WBC 6.6 (4.8-10.8) X10*3/uL RBC 3.80 L (4.20-5.50) X10*6/uL Hgb 11.9 L (12.0-16.0) g/dl Hct 35.6 L (37.0-47.0) % MCV 93.7 (80.0-98.0) fL MCH 31.3 (27.0-33.0) pg MCHC 33.4 (31.0-35.0) g/dl RDW 13.0 (11.0-16.0) % Plt Count 317 (160-400) X10*3/uL MPV 9.4 (9.4-12.3) fL Immature Gran % (Auto) 0.2 (0.0-0.4) % Neut % (Auto) 51.4 (45-73) % Lymph % (Auto) 38.8 (20-40) % Gooding % (Auto) 8.6 (2-11) % Eos % (Auto) 0.8 (0-4) % Baso % (Auto) 0.2 (0-2) % Lymph # (Auto) 2.6 (1.2-4.9) X10*3/uL Gooding # (Auto) 0.6 (0.1-1.2) X10*3/uL Eos # (Auto) 0.1 (0.0-0.4) X10*3/uL Baso # (Auto) 0.0 (0.0-0.2) X10*3/uL Abs Immat Gran (auto) 0.01 (0.00-0.03) X10*3/uL Absolute Neuts (auto) 3.4 (2.0-8.3) x10*3/uL Absolute Nucleated RBC 0.000 (0.0-0.012) X10*3/uL Nucleated RBC % (auto) 0.0 (0.0-0.2) /100WBC ESR (0-20) MM/HR PT 14.0 H (10.0-13.1) SEC INR 1.2 H (0.9-1.1) Sodium 141 (135-145) mmol/L Potassium 4.6 (3.3-5.1) mmol/L Chloride 107 (96-108) mmol/L Carbon Dioxide 26 (22-29) mmol/L Anion Gap 13 (12-20) BUN 14 (9-16) mg/dL Creatinine 0.76 (0.5-1.4) mg/dL Estim Creat Clear Calc 94.8 Estimated GFR > 60 Random Glucose 123 H (60-115) mg/dL Calcium 9.4 D (8.4-10.2) mg/dL Magnesium 1.7 (1.6-2.6) mg/dL Total Bilirubin 0.4 (0.0-1.0) mg/dL AST 24 (5-31) U/L ALT 23 (0-31) U/L Alkaline Phosphatase 98 (39-117) U/L Troponin I High Sens (<3.5-17.0) ng/L C-Reactive Protein 0.10 (< or = 0.50) mg/dL Total Protein 7.0 (6.5-8.0) g/dL Albumin 4.2 (3.5-5.0) g/dL TSH (0.32-4.0) uIU/mL Influenza Type A (PCR) (Negative) Influenza Type B (PCR) (Negative) RSV RNA Qual (PCR) (Negative) SARS-CoV-2 RNA (RT-PCR) (Negative) 08/13/22 08/13/22 08/13/22 Range/Units 19:59 19:59 19:59 WBC (4.8-10.8) X10*3/uL RBC (4.20-5.50) X10*6/uL Hgb (12.0-16.0) g/dl Hct (37.0-47.0) % MCV (80.0-98.0) fL MCH (27.0-33.0) pg MCHC (31.0-35.0) g/dl RDW (11.0-16.0) % Plt Count (160-400) X10*3/uL MPV (9.4-12.3) fL Immature Gran % (Auto) (0.0-0.4) % Neut % (Auto) (45-73) % Lymph % (Auto) (20-40) % Gooding % (Auto) (2-11) % Eos % (Auto) (0-4) % Baso % (Auto) (0-2) % Lymph # (Auto) (1.2-4.9) X10*3/uL Gooding # (Auto) (0.1-1.2) X10*3/uL Eos # (Auto) (0.0-0.4) X10*3/uL Baso # (Auto) (0.0-0.2) X10*3/uL Abs Immat Gran (auto) (0.00-0.03) X10*3/uL Absolute Neuts (auto) (2.0-8.3) x10*3/uL Absolute Nucleated RBC (0.0-0.012) X10*3/uL Nucleated RBC % (auto) (0.0-0.2) /100WBC ESR 18 (0-20) MM/HR PT (10.0-13.1) SEC INR (0.9-1.1) Sodium (135-145) mmol/L Potassium (3.3-5.1) mmol/L Chloride (96-108) mmol/L Carbon Dioxide (22-29) mmol/L Anion Gap (12-20) BUN (9-16) mg/dL Creatinine (0.5-1.4) mg/dL Estim Creat Clear Calc Estimated GFR Random Glucose (60-115) mg/dL Calcium (8.4-10.2) mg/dL Magnesium (1.6-2.6) mg/dL Total Bilirubin (0.0-1.0) mg/dL AST (5-31) U/L ALT (0-31) U/L Alkaline Phosphatase (39-117) U/L Troponin I High Sens 4.0 (<3.5-17.0) ng/L C-Reactive Protein (< or = 0.50) mg/dL Total Protein (6.5-8.0) g/dL Albumin (3.5-5.0) g/dL TSH (0.32-4.0) uIU/mL Influenza Type A (PCR) NEGATIVE (Negative) Influenza Type B (PCR) NEGATIVE (Negative) RSV RNA Qual (PCR) NEGATIVE (Negative) SARS-CoV-2 RNA (RT-PCR) NEGATIVE (Negative) 08/13/22 08/13/22 Range/Units 19:59 23:12 WBC (4.8-10.8) X10*3/uL RBC (4.20-5.50) X10*6/uL Hgb (12.0-16.0) g/dl Hct (37.0-47.0) % MCV (80.0-98.0) fL MCH (27.0-33.0) pg MCHC (31.0-35.0) g/dl RDW (11.0-16.0) % Plt Count (160-400) X10*3/uL MPV (9.4-12.3) fL Immature Gran % (Auto) (0.0-0.4) % Neut % (Auto) (45-73) % Lymph % (Auto) (20-40) % Gooding % (Auto) (2-11) % Eos % (Auto) (0-4) % Baso % (Auto) (0-2) % Lymph # (Auto) (1.2-4.9) X10*3/uL Gooding # (Auto) (0.1-1.2) X10*3/uL Eos # (Auto) (0.0-0.4) X10*3/uL Baso # (Auto) (0.0-0.2) X10*3/uL Abs Immat Gran (auto) (0.00-0.03) X10*3/uL Absolute Neuts (auto) (2.0-8.3) x10*3/uL Absolute Nucleated RBC (0.0-0.012) X10*3/uL Nucleated RBC % (auto) (0.0-0.2) /100WBC ESR (0-20) MM/HR PT (10.0-13.1) SEC INR (0.9-1.1) Sodium (135-145) mmol/L Potassium (3.3-5.1) mmol/L Chloride (96-108) mmol/L Carbon Dioxide (22-29) mmol/L Anion Gap (12-20) BUN (9-16) mg/dL Creatinine (0.5-1.4) mg/dL Estim Creat Clear Calc Estimated GFR Random Glucose (60-115) mg/dL Calcium (8.4-10.2) mg/dL Magnesium (1.6-2.6) mg/dL Total Bilirubin (0.0-1.0) mg/dL AST (5-31) U/L ALT (0-31) U/L Alkaline Phosphatase (39-117) U/L Troponin I High Sens 4.1 (<3.5-17.0) ng/L C-Reactive Protein (< or = 0.50) mg/dL Total Protein (6.5-8.0) g/dL Albumin (3.5-5.0) g/dL TSH 1.88 (0.32-4.0) uIU/mL Influenza Type A (PCR) (Negative) Influenza Type B (PCR) (Negative) RSV RNA Qual (PCR) (Negative) SARS-CoV-2 RNA (RT-PCR) (Negative) <SUSANNA Babb - Last Filed: 08/13/22 19:26> Lab Results 08/13/22 08/13/22 08/13/22 Range/Units 19:59 19:59 19:59 WBC 6.6 (4.8-10.8) X10*3/uL RBC 3.80 L (4.20-5.50) X10*6/uL Hgb 11.9 L (12.0-16.0) g/dl Hct 35.6 L (37.0-47.0) % MCV 93.7 (80.0-98.0) fL MCH 31.3 (27.0-33.0) pg MCHC 33.4 (31.0-35.0) g/dl RDW 13.0 (11.0-16.0) % Plt Count 317 (160-400) X10*3/uL MPV 9.4 (9.4-12.3) fL Immature Gran % (Auto) 0.2 (0.0-0.4) % Neut % (Auto) 51.4 (45-73) % Lymph % (Auto) 38.8 (20-40) % Gooding % (Auto) 8.6 (2-11) % Eos % (Auto) 0.8 (0-4) % Baso % (Auto) 0.2 (0-2) % Lymph # (Auto) 2.6 (1.2-4.9) X10*3/uL Gooding # (Auto) 0.6 (0.1-1.2) X10*3/uL Eos # (Auto) 0.1 (0.0-0.4) X10*3/uL Baso # (Auto) 0.0 (0.0-0.2) X10*3/uL Abs Immat Gran (auto) 0.01 (0.00-0.03) X10*3/uL Absolute Neuts (auto) 3.4 (2.0-8.3) x10*3/uL Absolute Nucleated RBC 0.000 (0.0-0.012) X10*3/uL Nucleated RBC % (auto) 0.0 (0.0-0.2) /100WBC ESR (0-20) MM/HR PT 14.0 H (10.0-13.1) SEC INR 1.2 H (0.9-1.1) Sodium 141 (135-145) mmol/L Potassium 4.6 (3.3-5.1) mmol/L Chloride 107 (96-108) mmol/L Carbon Dioxide 26 (22-29) mmol/L Anion Gap 13 (12-20) BUN 14 (9-16) mg/dL Creatinine 0.76 (0.5-1.4) mg/dL Estim Creat Clear Calc 94.8 Estimated GFR > 60 Random Glucose 123 H (60-115) mg/dL Calcium 9.4 D (8.4-10.2) mg/dL Magnesium 1.7 (1.6-2.6) mg/dL Total Bilirubin 0.4 (0.0-1.0) mg/dL AST 24 (5-31) U/L ALT 23 (0-31) U/L Alkaline Phosphatase 98 (39-117) U/L Troponin I High Sens (<3.5-17.0) ng/L C-Reactive Protein 0.10 (< or = 0.50) mg/dL Total Protein 7.0 (6.5-8.0) g/dL Albumin 4.2 (3.5-5.0) g/dL TSH (0.32-4.0) uIU/mL Influenza Type A (PCR) (Negative) Influenza Type B (PCR) (Negative) RSV RNA Qual (PCR) (Negative) SARS-CoV-2 RNA (RT-PCR) (Negative) 08/13/22 08/13/22 08/13/22 Range/Units 19:59 19:59 19:59 WBC (4.8-10.8) X10*3/uL RBC (4.20-5.50) X10*6/uL Hgb (12.0-16.0) g/dl Hct (37.0-47.0) % MCV (80.0-98.0) fL MCH (27.0-33.0) pg MCHC (31.0-35.0) g/dl RDW (11.0-16.0) % Plt Count (160-400) X10*3/uL MPV (9.4-12.3) fL Immature Gran % (Auto) (0.0-0.4) % Neut % (Auto) (45-73) % Lymph % (Auto) (20-40) % Gooding % (Auto) (2-11) % Eos % (Auto) (0-4) % Baso % (Auto) (0-2) % Lymph # (Auto) (1.2-4.9) X10*3/uL Gooding # (Auto) (0.1-1.2) X10*3/uL Eos # (Auto) (0.0-0.4) X10*3/uL Baso # (Auto) (0.0-0.2) X10*3/uL Abs Immat Gran (auto) (0.00-0.03) X10*3/uL Absolute Neuts (auto) (2.0-8.3) x10*3/uL Absolute Nucleated RBC (0.0-0.012) X10*3/uL Nucleated RBC % (auto) (0.0-0.2) /100WBC ESR 18 (0-20) MM/HR PT (10.0-13.1) SEC INR (0.9-1.1) Sodium (135-145) mmol/L Potassium (3.3-5.1) mmol/L Chloride (96-108) mmol/L Carbon Dioxide (22-29) mmol/L Anion Gap (12-20) BUN (9-16) mg/dL Creatinine (0.5-1.4) mg/dL Estim Creat Clear Calc Estimated GFR Random Glucose (60-115) mg/dL Calcium (8.4-10.2) mg/dL Magnesium (1.6-2.6) mg/dL Total Bilirubin (0.0-1.0) mg/dL AST (5-31) U/L ALT (0-31) U/L Alkaline Phosphatase (39-117) U/L Troponin I High Sens 4.0 (<3.5-17.0) ng/L C-Reactive Protein (< or = 0.50) mg/dL Total Protein (6.5-8.0) g/dL Albumin (3.5-5.0) g/dL TSH (0.32-4.0) uIU/mL Influenza Type A (PCR) NEGATIVE (Negative) Influenza Type B (PCR) NEGATIVE (Negative) RSV RNA Qual (PCR) NEGATIVE (Negative) SARS-CoV-2 RNA (RT-PCR) NEGATIVE (Negative) 08/13/22 08/13/22 Range/Units 19:59 23:12 WBC (4.8-10.8) X10*3/uL RBC (4.20-5.50) X10*6/uL Hgb (12.0-16.0) g/dl Hct (37.0-47.0) % MCV (80.0-98.0) fL MCH (27.0-33.0) pg MCHC (31.0-35.0) g/dl RDW (11.0-16.0) % Plt Count (160-400) X10*3/uL MPV (9.4-12.3) fL Immature Gran % (Auto) (0.0-0.4) % Neut % (Auto) (45-73) % Lymph % (Auto) (20-40) % Gooding % (Auto) (2-11) % Eos % (Auto) (0-4) % Baso % (Auto) (0-2) % Lymph # (Auto) (1.2-4.9) X10*3/uL Gooding # (Auto) (0.1-1.2) X10*3/uL Eos # (Auto) (0.0-0.4) X10*3/uL Baso # (Auto) (0.0-0.2) X10*3/uL Abs Immat Gran (auto) (0.00-0.03) X10*3/uL Absolute Neuts (auto) (2.0-8.3) x10*3/uL Absolute Nucleated RBC (0.0-0.012) X10*3/uL Nucleated RBC % (auto) (0.0-0.2) /100WBC ESR (0-20) MM/HR PT (10.0-13.1) SEC INR (0.9-1.1) Sodium (135-145) mmol/L Potassium (3.3-5.1) mmol/L Chloride (96-108) mmol/L Carbon Dioxide (22-29) mmol/L Anion Gap (12-20) BUN (9-16) mg/dL Creatinine (0.5-1.4) mg/dL Estim Creat Clear Calc Estimated GFR Random Glucose (60-115) mg/dL Calcium (8.4-10.2) mg/dL Magnesium (1.6-2.6) mg/dL Total Bilirubin (0.0-1.0) mg/dL AST (5-31) U/L ALT (0-31) U/L Alkaline Phosphatase (39-117) U/L Troponin I High Sens 4.1 (<3.5-17.0) ng/L C-Reactive Protein (< or = 0.50) mg/dL Total Protein (6.5-8.0) g/dL Albumin (3.5-5.0) g/dL TSH 1.88 (0.32-4.0) uIU/mL Influenza Type A (PCR) (Negative) Influenza Type B (PCR) (Negative) RSV RNA Qual (PCR) (Negative) SARS-CoV-2 RNA (RT-PCR) (Negative) <SUSANNA Grimm - Last Filed: 08/14/22 17:59> Independent Interpretation I performed an independent interpretation of an: EKG <SUSANNA Grimm Last Filed: 08/14/22 17:59> Interpretation: Sinus bradycardia reticular 44. Pr interval 164. QRS 94. QTC 377. Negative STEMI <SUSANNA Grimm Last Filed: 08/14/22 17:59> Radiology Impression Discussion of test interpretation with radiology: I have reviewed the radiologist's reading. <SUSANNA Grimm Last Filed: 08/14/22 17:59> Prescription Management I considered prescription management with: Other (Lisinopril) <SUSANNA Grimm Last Filed: 08/14/22 17:59> Chronic Conditions Patient?s care impacted by: Hypertension <SUSANNA Grimm Last Filed: 08/14/22 17:59> Discharge Plan Discharge Clinical Impression: HTN (hypertension), Bradycardia, sinus <SUSANNA Babb Last Filed: 08/13/22 19:26> Patient Disposition: Home, Self-Care <SUSANNA Babb Last Filed: 08/13/22 19:26> Instructions: Bradycardia (ED), Hypertensive Crisis (ED), Hypertension (ED) <SUSANNA Babb Last Filed: 08/13/22 19:26> Additional Instructions: Hernandez dolor de mohan se clyde? a la presi?n arterial elevada que se controla en la jocelin de emergencias. Recomiende un seguimiento con hernandez proveedor de atenci?n primaria y cardi?logo. Deje de mahad metoprolol debido a hernandez baja frecuencia card?deejay. Se le william? naima nueva receta de lisinopril 20 mg. Regrese al servicio de urgencias por cualquier dificultad para hablar, ca?da facial, par?lisis de las extremidades, dolor de mohan intenso, n?useas, v?mitos, dolor en el pecho, dificultad para respirar, p?rdida de la visi?n, hinchaz?n de las piernas, dolor en la pantorrilla, tos con john o cualquier otro s?ntoma preocupante. <SUSANNA Babb - Last Filed: 08/13/22 19:26> Prescriptions: New lisinopril 20 mg tablet 20 mg PO DAILY 14 Days Qty: 14 0RF No Action multivitamin Tablet 1 tab PO DAILY baclofen 10 mg Tablet 10 mg PO TID PRN (Reason: Spasms) omeprazole 20 mg Tablet,Delayed Release (Dr/Ec) 20 mg PO DAILY cholecalciferol (vitamin D3) [Vitamin D3] 50 mcg (2,000 unit) Tablet 50 mcg PO DAILY insulin glargine [Lantus Solostar U-100 Insulin] 100 unit/mL (3 mL) insulin pen 12 unit SUBCUT BEDTIME cefuroxime axetil 250 mg tablet 250 mg PO Q12H Qty: 14 0RF loratadine 10 mg tablet 10 mg PO DAILY PRN (Reason: Allergy Symptoms) magnesium oxide 400 mg magnesium tablet 400 mg PO DAILY Qty: 30 0RF fluticasone propionate 50 mcg/actuation spray,suspension 1 - 2 spray intranasal DAILY PRN (Reason: Allergy Symptoms) Xarelto 20 mg Tablet 20 mg PO DAILY@1700 Qty: 30 0RF metoprolol tartrate 100 mg tablet 100 mg PO BID Qty: 60 0RF insulin lispro [Humalog KwikPen Insulin] 100 unit/mL Insulin Pen 1 sliding scale dose SUBCUT QIDACHS Qty: 15 0RF Rx Instructions: Blood Sugar: <150 - 0 units 151-200 - 2 units 201-250 - 4 units 251-300 - 6 units 301-350 - 8 units >350 - 10 units (DME) pen needle, diabetic 32 gauge x 1/4 Needle Qty: 100 0RF Rx Instructions: Use four times a day or as directed. atorvastatin 80 mg tablet 80 mg PO BEDTIME acetaminophen 650 mg tablet extended release 650 mg PO Q8H PRN (Reason: fever) docusate sodium 100 mg capsule 100 mg PO BID PRN (Reason: Constipation) fluoxetine 20 mg capsule 40 mg PO DAILY metformin 500 mg tablet extended release 24 hr 2,000 mg PO BID trazodone 100 mg tablet 200 mg PO BEDTIME PRN (Reason: Insomnia) sennosides [senna] 8.6 mg tablet 17.2 mg PO BEDTIME PRN (Reason: constipation) diclofenac sodium 75 mg tablet,delayed release (DR/EC) 75 mg PO BID PRN (Reason: pain) Qty: 60 0RF lisinopril 5 mg tablet 10 mg PO DAILY <SUSANNA Babb - Last Filed: 08/13/22 19:26> Stand Alone Forms: Work/School Release <SUSANNA Babb - Last Filed: 08/13/22 19:26> Interventions: ED Discharge Assessment Last Done: 08/14/22 00:54 <SUSANNA Babb - Last Filed: 08/13/22 19:26> Discharge Date/Time: 08/14/22 00:55 <SUSANNA Babb - Last Filed: 08/13/22 19:26> Print Language: Venezuelan <SUSANNA Babb - Last Filed: 08/13/22 19:26>
--- NOTE | 2022-08-13 19:20 | ECG_ITS ---
Test Reason : HIGH BLOOD PRESSURE Blood Pressure : / mmHG Vent. Rate : 044 BPM Atrial Rate : 044 BPM P-R Int : 164 ms QRS Dur : 094 ms QT Int : 442 ms P-R-T Axes : 037 000 017 degrees QTc Int : 377 ms Marked sinus bradycardia Moderate voltage criteria for LVH, may be normal variant ( R in aVL , [place] product ) Possible Anterior infarct , age undetermined Abnormal ECG When compared with ECG of 13-NOV-2021 14:31, Sinus rhythm has replaced Atrial flutter Vent. rate has decreased BY [address] elevation has replaced ST depression in Lateral leads T wave inversion no longer evident in Lateral leads Referred By: Kendal Valdes Electronically Signed By:ADIS ERICKSON MD
[2022-08-13 20:08] LABS: MANUAL DIFF FLAG NO
[2022-08-13 20:09] LABS: Basophils Percent Auto 0.2 % (0-2); Eosinophils Absolute Auto 0.1 X10*3/uL (0.0-0.4); Eosinophils Percent Auto 0.8 % (0-4); Hematocrit 35.6 % (37.0-47.0); Hemoglobin 11.9 g/dl (12.0-16.0); Imm Gran Abs Auto 0.01 X10*3/uL (0.00-0.03); Imm Gran Pct Auto 0.2 % (0.0-0.4); Lymphocytes Absolute Auto 2.6 X10*3/uL (1.2-4.9); Lymphocytes Percent Auto 38.8 % (20-40); Mean Corpuscular HGB Conc 33.4 g/dl (31.0-35.0); Mean Corpuscular Hemoglobin 31.3 pg (27.0-33.0); Mean Corpuscular Volume 93.7 fL (80.0-98.0); Mean Platelet Volume 9.4 fL (9.4-12.3); Monocytes Absolute Auto 0.6 X10*3/uL (0.1-1.2); Monocytes Percent Auto 8.6 % (2-11); Neutrophils Absolute Auto 3.4 x10*3/uL (2.0-8.3); Neutrophils Percent Auto 51.4 % (45-73); Platelet Count 317 X10*3/uL (160-400); White Blood Count 6.6 X10*3/uL (4.8-10.8)
[2022-08-13 20:14] LABS: INTERNATIONAL NORM RATIO 1.2 (0.9-1.1)
[2022-08-13 20:27] LABS: Alanine Aminotransferase 23 U/L (0-31); Albumin Level 4.2 g/dL (3.5-5.0); Alkaline Phosphatase 98 U/L (39-117); Anion Gap 13 (12-20); Aspartate Amino Transferase 24 U/L (5-31); Bilirubin Total 0.4 mg/dL (0.0-1.0); Blood Urea Nitrogen 14 mg/dL (9-16); Calcium 9.4 mg/dL (8.4-10.2); Carbon Dioxide 26 mmol/L (22-29); Chloride 107 mmol/L (96-108); Creatinine Clr Calc Pharmacy 94.8; Estimated Glomerular Filt Rate > 60; Glucose Random 123 mg/dL (60-115); Magnesium 1.7 mg/dL (1.6-2.6); Potassium 4.6 mmol/L (3.3-5.1); Sodium 141 mmol/L (135-145)
[2022-08-13 20:45] LABS: Influenza A PCR NEGATIVE (Negative); Influenza B PCR NEGATIVE (Negative); Resp Syncy Virus RNA Qual PCR NEGATIVE (Negative); SARS COV2 PCR INHOUSE NEGATIVE (Negative); TSH reflex Free T4 1.88 uIU/mL (0.32-4.0)
[2022-08-13 20:50] LABS: Erythrocyte Sedimentation Rate 18 MM/HR (0-20)
[2022-08-13] MEDS: cloNIDine HCL 0.2 MG TABLET PO (21:36)
--- NOTE | 2022-08-13 22:56 | PC.NURSE ---
pt daughter at bedside. pt able to sleep at this time. per marisa pa continue to monitor HR and BP
--- NOTE | 2022-08-13 23:33 | PC.NURSE ---
pt resting on side at this time. senior receptionist remains in place. daughter at bedside
[2022-08-13 23:40] LABS: Troponin-I High Sensitivity 4.1 ng/L (<3.5-17.0)
[2022-08-14 00:28] VITALS: BP 160/72; PULSE 49; RESP 11; O2SAT 97
--- NOTE | 2022-08-14 00:50 | PC.NURSE ---
pt daughter at bedside at discharge. iv removed at discharge. pt provided with discharge packet at discharge. pt verbalized understanding of discharge plan.
== END 2022-08-14 00:55 | disposition home or self-care (01) ==
PROVIDERS: Physician Assistant; Physician Assistant Medical; Emergency Provider Internal Medicine; PCP Family Medicine
DX: I10 Essential (primary) hypertension (principal); R00.1 Bradycardia, unspecified; R51.9 Headache, unspecified; Z20.822 Contact with and (suspected) exposure to COVID-19; Z20.828 Contact with and (suspected) exposure to other viral communicable diseases; E11.9 Type 2 diabetes mellitus without complications; E78.00 Pure hypercholesterolemia, unspecified; I48.0 Paroxysmal atrial fibrillation; E66.01 Morbid (severe) obesity due to excess calories; Z68.41 Body mass index [BMI] 40.0-44.9, adult; Z79.4 Long term (current) use of insulin; Z79.01 Long term (current) use of anticoagulants; Z79.899 Other long term (current) drug therapy
CPT/HCPCS: 0241U; 36415; 70450; 71046; 80053; 83735; 84443; 84484; 85025; 85610; 85652; 86140; 93005; 99284; 99285

== ENCOUNTER → 2022-08-16 09:48 | Outpatient (BNVA) | payer MEDICARE, MEDICAID, SELFPAY | PROVIDERS: PCP Family Medicine; Visit Provider Advanced Practice Midwife | DX: Z13.89 Encounter for screening for other disorder (principal) ==

== ENCOUNTER → 2022-09-12 15:17 | Outpatient (BNVA) | payer MEDICARE, MEDICAID, SELFPAY | PROVIDERS: PCP Family Medicine; Visit Provider Internal Medicine Cardiovascular Disease | DX: I48.92 Unspecified atrial flutter (principal); I42.9 Cardiomyopathy, unspecified | CPT/HCPCS: 99212 ==

== ENCOUNTER → 2022-09-21 07:39 | Outpatient (REF) | payer MEDICARE, MEDICAID, SELFPAY ==
--- NOTE | 2022-09-21 07:42 | CA_ITS ---
Transthoracic Echocardiogram Patient (Last, First, Middle): Ashley Pavon, Gender: Female Date of : 1965 Age: 56 Procedure Date: 09/21/2022 Procedure Type: Transthoracic Echocardiogram Location: OP Height: 154. cm Weight: 111.13 kg BSA: 2.05 m2 Heart Rate: 68 bpm BP: 155 / 100 mmHg Broadcast Producer: JEANINE Referring MD: Abad Evangelista MD Supervisor Grips: Abad Evangelista MD Symptoms: I42.9 - Cardiomyopathy, unspecified Study Quality: Adequate ECG Rhythm: Sinus Conclusions: - 1. Mildly reduced LV systolic function with mild LVH with impaired relaxation filling pattern and elevated filling pressures 2. Normal cardiac valvular Dopplers 3. Upper limits of normal ascending aortic size 4. No gross pericardial effusion Findings Left Ventricle Normal left ventricular cavity size. There is mildly increased left ventricular wall thickness. The left ventricular systolic function is mildly decreased. The visually estimated ejection fraction is between 45-50%. Spectral Doppler is indicative of an impaired relaxation filling pattern. Elevated filling pressures. E/E prime ratio is >15, consistent with elevated filling pressures. Peak GLS is -12% which is moderately reduced. Right Ventricle Normal right ventricular cavity size and systolic function. Atria The left atrium is likely dilated. Interatrial shunt cannot be excluded. The right atrium is normal in size. Aortic Valve Normal aortic valve structure and function. There is no aortic valve stenosis. There is no aortic valve regurgitation. Mitral Valve There is mild anterior and posterior mitral leaflet thickening. There is trace mitral valve regurgitation. There is no mitral valve stenosis. Pulmonic Valve The pulmonic valve is likely normal. There is trace pulmonic valve regurgitation. Tricuspid Valve Likely normal tricuspid valve structure and function. Tricuspid regurgitation envelope is inadequate for calculation of right ventricular systolic pressure. Normal right atrial pressure. Great Vessels The pulmonary artery was not well visualized. Venous The inferior vena cava is normal in size and collapses greater than 50% with inspiration. Pericardium/Pleural There is no evidence of pericardial effusion. Measurements 2D Linear Measurements IVSd: 1.37 0.6-0.9/0.6-1.0 cm LVIDd: 4.71 3.9-5.3/4.2-5.9 cm LVIDd Index: 2.30 2.4-3.2/2.2-3.1 cm/m2 LVIDs: 3.92 2.0-3.6 cm LVPWd: 1.33 0.7-1.1 cm LA Diam: 3.80 2.7-3.8/3.0-4.0 cm LAIDs Index: 1.85 1.5-2.3 cm/m2 LV Mass: 314.48 67-162/88-224 g LV Mass Index: 153.40 43-95/49-115 g/m2 LVOT Diam: 2.10 3.0+(-)1.3 cm 2D Systolic Function EF 4C: 50.30 >55% EF 2C: 48.20 >55% EF BiP: 47.60 >55% Mitral Valve MV Pk E: 0.91 MV PK A: 0.90 MV Decel Time: 210.00 E/A: 1.00 E'Lateral: 5.35 E'Medial: 4.38 E/E' Med: 20.70 E/E' Lat: 17.00 PHT: 62.00 MVA PHT: 3.55 Decel Luna: 4.32 Aortic Valve AoV Pk Lincoln: 1.37 AoV Mn Lincoln: 0.99 AoV VTI: 0.32 AoV Pk Grad: 8.00 Aov Mn Grad: 4.00 URBANO Cont.VTI: 2.11 LVOT LVOT Pk Lincoln: 0.91 LVOT Mn Lincoln: 0.68 LVOT VTI: 0.19 LVOT Pk Grad: 3.00 LVOT Mn Grad: 2.00 LVOT Diam: 2.10 LVOT Area: 3.46 Diastolic Function MV Pk E: 0.91 MV Pk A: 0.90 E/A: 1.00 E'Medial: 4.38 E/E' Med: 20.70 E' Laterial: 5.35 E/E' Lat: 17.00 Right Ventricle TAPSE (mm): 18.00 TVS' Lincoln: 10.60 Tricuspid Valve RA Press: 3.00 Great Vessels Aorta Sinus of Valsalva: 3.40 2.0-3.5 cm Ao Asc: 3.70 2.1-3.4 cm Pulmonary Valve PV Pk Lincoln: 0.98 Peak PV Grad: 4.00 Updated in Other Vendor System with Status of Final Abad Evangelista MD electronically signed on 09/21/2022 1:45:34 PM with status of Final
--- NOTE | 2022-09-21 07:42 | HM_ITS ---
Conclusion: 1. Patient was monitored for total period of 2 days 2. Baseline was normal sinus rhythm with average heart rate of 76 beats per minute 3. Very rare ectopy noted 4. One 3 beat run of SVT at 190 beats per minute 5. No significant pauses noted 6. Patient marked 1 event without correlating symptoms which correlated with sinus rhythm MTDD
== END ==
LOC: HO.CARD 07:39
PROVIDERS: Visit Provider Internal Medicine Cardiovascular Disease
DX: I48.92 Unspecified atrial flutter (principal); I42.9 Cardiomyopathy, unspecified
CPT/HCPCS: 93225; 93306; 93356

== ENCOUNTER → 2022-10-27 14:00 | Outpatient (BNVA) | payer MEDICARE, MEDICAID, SELFPAY | PROVIDERS: PCP Family Medicine; Visit Provider Obstetrics & Gynecology ==

== ENCOUNTER 2022-10-28 10:49 | Outpatient (REF) | payer OTHER, SELFPAY ==
--- NOTE | ~2022-10-28 | US_ITS ---
EXAMINATION: US PELVIS CLINICAL INFORMATION: Benign neoplasm of connective and other soft tissues. COMPARISON: None available. TECHNIQUE: Ultrasound of the pelvis is performed using both transabdominal and transvaginal transducers along with Doppler. Transvaginal imaging is performed due to inadequate visualization transabdominally. FINDINGS: UTERUS: The uterus is retroverted, retroflexed and measures 8.0 x 4.8 x 7.1 cm. The double wall endometrial thickness is 0.7 cm. The uterus is smooth in contour and has normal myometrial echogenicity. There are several hypoechoic lesions consistent with fibroids. 1. Right fundal lesion measures 3.5 x 2.6 x 3.1 cm. Previously measured 2.3 x 2.4 x 2.0 cm. 2. Lesion at the junction of the body and the fundus measures 3.0 x 2.8 x 3.0 cm. Previously measured 2.5 x 2.6 x 2.4 cm. 3. Junctional lesion at the junction of fundus and body measures 4.3 x 4.4 x 4.2 cm. Previously measured 3.4 x 3.3 x 3.6 cm. 4. Lesion in the right mid body of the uterus likely submucosal, measures 2.0 x 1.5 x 1.8 cm. Not seen previously. 5. Lesion in the lower uterine segment measures 1.9 x 1.7 x 1.6 cm, not seen previously. 6. Lesion in the right body of uterus measures 1.7 x 1.5 x 1.7 cm. Previously is not seen. 7. Left fundal partially exophytic lesion measures 2.8 x 3.4 x 3.4 cm. Previously it measured 2.9 x 2.6 x 3.4 cm. ADNEXA: Both ovaries are visualized. There is normal color flow to the adnexa. There is no ovarian torsion. There is no pelvic ascites or fluid collection. Right ovary measures 4.7 x 2.6 x 5.2 cm and volume 33.2 mL. The ovary is better seen on transabdominal ultrasound. There is an anechoic cyst measuring 3.8 x 2.9 x 4.2 cm lesion. Left ovary measures 3.4 x 2.2 x 2.8 cm and volume 10.9 mL. Previously it measured 1.7 x 2.0 x 1.3 cm. US/US pelvic and transvaginal IMPRESSION: 1. Multiple uterine fibroids as described above most of the fibroids are stable. No different echogenicity seen from the previous study. 2. Ovaries are unremarkable except for a small simple cyst, right ovary.
== END 2022-10-28 10:50 | disposition home or self-care (01) ==
LOC: HO.US 10:49
PROVIDERS: PCP Family Medicine; Visit Provider Obstetrics & Gynecology
DX: D21.9 Benign neoplasm of connective and other soft tissue, unspecified (principal)
CPT/HCPCS: 76830; 76856

== ENCOUNTER → 2022-11-10 09:28 | Outpatient (BNVA) | payer OTHER, SELFPAY | PROVIDERS: Visit Provider Obstetrics & Gynecology | DX: D25.9 Leiomyoma of uterus, unspecified (principal); N95.9 Unspecified menopausal and perimenopausal disorder | CPT/HCPCS: 99212 ==

== ENCOUNTER 2022-12-07 08:16 | Outpatient (REF) | payer OTHER, SELFPAY ==
--- NOTE | ~2022-12-07 | MM_ITS ---
EXAMINATION: MM SCREENING DIGITAL BREAST TOMOSYNTHESIS, BILATERAL CLINICAL INFORMATION: Screening. Asymptomatic. Remote reduction mammoplasty, 1983. Left biopsy-proven fibroadenoma, 2013. The lifetime risk of breast cancer based on the Tyrer-Cuzick Model is 11%. COMPARISON: Multiple prior mammography exams including most recent 12/02/2021. TECHNIQUE: Digital breast tomosynthesis is performed in both the craniocaudal and mediolateral oblique views along with computer-aided detection (CAD). Synthesized 2D images are generated from the tomosynthesis. Additional bilateral CC views are provided. FINDINGS: There are scattered areas of fibroglandular density (ACR BI-RADS breast composition Category b). Parenchymal pattern is similar to prior exams and there is no interval mass or architectural abnormality or abnormal calcifications. Again, there are numerous bilateral round, rim, predominantly dermal calcifications consistent with the prior reduction mammoplasty. Nodularity central left breast with adjacent biopsy clip marker and small satellite nodule mid lower inner left breast are stable. The axilla are unremarkable. No significant changes. MM/MM tomosynthesis screening BI IMPRESSION: No mammographic evidence of malignancy. ASSESSMENT: BI-RADS 2: Benign RECOMMENDATION: Routine annual mammography screening. This patient's information was entered into a reminder system with a target due date for their next mammogram.
== END 2022-12-07 08:17 | disposition home or self-care (01) ==
LOC: HO.MAMMO 08:16
PROVIDERS: PCP Family Medicine; Visit Provider Family Medicine
DX: Z12.31 Encounter for screening mammogram for malignant neoplasm of breast (principal)
CPT/HCPCS: 77063; 77067

== ENCOUNTER 2023-03-13 13:01 | Outpatient (AMB) | payer OTHER, MEDICAID, SELFPAY ==
[2023-03-13 13:24] VITALS: BP 116/74; PULSE 85; BMI 43.9
--- NOTE | 2023-03-13 13:24 | MHC.OFFVIS ---
Intake Vital Signs 03/13/23 13:24 Height 5 ft 2 in Weight 240 lb 4.862 oz BMI 43.9 BP 116/74 Blood Pressure Location Lt radial Position Sitting Pulse 85 Intake Visit Reasons: 6 month follow up after testing Intake Note: 6 month follow-up after testing feeling good Finishing Supervisor Plastic Sheets Required: Yes Finishing Supervisor Plastic Sheets Name: Lea camp Allergies No Known Allergies [No Known Allergies*] Allergy (Verified 11/10/22 09:50) Medication List - Last Reconciled 03/13/23 by Abad Evangelista MD acetaminophen ER 650 mg PO Q8H PRN amlodipine 5 mg PO DAILY atorvastatin 80 mg PO BEDTIME baclofen 10 mg PO TID PRN cholecalciferol (vitamin D3) (Vitamin D3) 50 mcg PO DAILY diclofenac sodium 75 mg PO BID PRN docusate sodium 100 mg PO BID PRN fluoxetine 40 mg PO DAILY fluticasone propionate 50 mcg/actuation 1 - 2 sprays intranasal DAILY PRN insulin glargine (Lantus Solostar U-100 Insulin) 12 units subcut BEDTIME insulin lispro (Humalog KwikPen (U-100) Insulin) 1 sliding scale dose subcut QIDACHS lisinopril 40 mg PO DAILY loratadine 10 mg PO DAILY PRN magnesium oxide 400 mg PO DAILY metformin ER 2,000 mg PO BID multivitamin 1 tab PO DAILY omeprazole 20 mg PO DAILY pen needle, diabetic Use four times a day or as directed. rivaroxaban (Xarelto) 20 mg PO DAILY@1700 sennosides (senna) 17.2 mg PO BEDTIME PRN trazodone 200 mg PO BEDTIME PRN HPI HPI Comments History of Present Illness Details Ashley comes for follow-up. History was obtained with help of warehouse loader. Patient denies any prolonged palpitation irregular heartbeat. Denies any worsening shortness of breath, orthopnea, PND. Has some daytime somnolence. Recent echocardiogram shows persistent mild LV systolic dysfunction. No other heart failure symptoms. No bleeding issues or neurologic events. Her blood pressure medications were increased due to persistently elevated blood pressure. A blood pressures since then have been well controlled. [facility] Medical History History of cardioversion Atrial flutter, paroxysmal On beta pat at home On anticoagulant therapy Atrial fibrillation and flutter Atrial fibrillation Diabetes Essential hypertension Abdominal pain Lab test negative for COVID-19 virus Arthritis Anemia GERD (gastroesophageal reflux disease) Hepatitis Depression Hypercholesteremia Diabetes HTN (hypertension) Surgical History Hx of abdominal surgery Hx of dilation and curettage Hx of excision of mass Hx of section Hx of tubal ligation Hx of reduction mammoplasty Hx of cholecystectomy Hx of gastric bypass Bariatric surgery status Social History Household Members: Children Housing: Apartment Are you a primary day care director to a significant other at home: No Do you presently have visiting nurse or other home services: No Alcohol intake: never Patient Tobacco Use Status: Never used Tobacco e-Cigarette/Vaping Use: Never Used Advance Directives Date on File: 11/09/21 service: No Current occupational status: disabled Current occupation: rt handed Female Reproductive History Menstrual Age of Menarche: 11 Review of Systems Const Denies chills, Denies fatigue, Denies fever(s), Denies frequent falls, Denies weakness, Denies weight gain and Denies weight loss ENT Denies dizziness Card Denies chest pain, Denies leg edema, Denies lightheadedness, Denies palpitations, Denies dyspnea, Denies dyspnea on exertion, Denies orthopnea and Denies other (loss of consciousness) Resp Denies cough, Denies dyspnea and Denies dyspnea on exertion GI Denies hematochezia and Denies change in stool character Musc Denies abnormal gait, Denies muscle weakness, Denies numbness, Denies radiating pain into limb and Denies tingling Neuro Denies abnormal gait, Denies dizziness, Denies frequent falls, Denies numbness, Denies tingling and Denies weakness Endo Denies fatigue and Denies palpitations Physical Exam Vital Signs: Last Vital Signs Pulse 85 03/13/23 13:24 BP 116/74 03/13/23 13:24 BMI result Body Mass Index 43.9 Const General: cooperative, healthy appearing, comfortable and no acute distress Orientation/consciousness: patient oriented x3 Neck Neck: Yes normal visual inspection Resp Effort & Inspection: normal respiratory effort Auscultation: clear to auscultation bilaterally, no crackles, no rales, no rhonchi and no wheezes Cardio Jugular venous distension: no JVD Rate: regular rate Rhythm: regular rhythm Heart sounds: S1 normal heart sound present, S2 normal heart sound present, no gallops, no murmurs and no rubs Peripheral pulses: Peripheral pulses 2+ throughout Neuro General: patient oriented x3 Extrem General: Yes normal to inspection, No no pedal edema and No calf tenderness Psych Appearance: grossly normal Mental Status: mental status grossly normal Speech and movement: Normal speech and movement present Assessment & Plan Assessment & Plan (1) Cardiomyopathy: Code(s): I42.9 - Cardiomyopathy, unspecified Plan: Patient with mild LV systolic dysfunction consistent with cardiomyopathy. Need to rule out obstructive sleep apnea as a cause of both cardiomyopathy and atrial flutter. Continue current neurohormonal modulation with lisinopril. Could not tolerate beta-pat therapy due to bradycardia. Avoid rate lowering medications. Signs and symptoms of heart failure were discussed continue rhythm control approach which has led to improvement in LV systolic function but still not to the normal range. Continue aggressive risk factor modification. Weight reduction programs recommended. (2) Atrial flutter: Code(s): I48.92 - Unspecified atrial flutter Plan: Paroxysmal atrial flutter, currently maintaining rhythm. Continue rhythm control approach. Workup for sleep apnea as above. Continue full oral anticoagulation, currently on Xarelto 20 mg daily. Semi annual renal function test she is recommended. Will follow up in the clinic in 6 months time after an echocardiogram. Thank you for allowing me to partake in his care Orders: Orders RT home sleep study Today I48.92 - Unspecified atrial flutter, R06.81 - Apnea, not elsewhere classified Basic Metabolic Panel Today I48.92 - Unspecified atrial flutter Coding Level of Care Code Est Pt Level 4 (68798) Diagnoses Cardiomyopathy I42.9 Atrial flutter I48.92
== END 2023-03-13 13:48 | disposition home or self-care (01) ==
PROVIDERS: PCP Family Medicine; Referring Provider Family Medicine; Visit Provider Internal Medicine Cardiovascular Disease
DX: I42.9 Cardiomyopathy, unspecified (principal); I48.92 Unspecified atrial flutter
CPT/HCPCS: 99214

== ENCOUNTER → 2023-03-13 13:01 | Outpatient (BNVA) | payer MEDICARE, MEDICAID, SELFPAY | PROVIDERS: PCP Family Medicine; Referring Provider Family Medicine; Visit Provider Internal Medicine Cardiovascular Disease | DX: I42.9 Cardiomyopathy, unspecified (principal); I48.92 Unspecified atrial flutter; Z79.01 Long term (current) use of anticoagulants | CPT/HCPCS: 99212 ==

== ENCOUNTER 2023-03-15 08:50 | Outpatient (REF) | payer OTHER, SELFPAY ==
[2023-03-15 10:40] LABS: Anion Gap 10 (12-20); Blood Urea Nitrogen 11 mg/dL (9-16); Calcium 9.5 mg/dL (8.4-10.2); Carbon Dioxide 29 mmol/L (22-29); Chloride 106 mmol/L (96-108); Estimated Glomerular Filt Rate > 60; Glucose Random 138 mg/dL (60-115); Potassium 4.1 mmol/L (3.3-5.1); Sodium 141 mmol/L (135-145)
== END 2023-03-15 08:51 | disposition home or self-care (01) ==
LOC: HO.LAB 08:50
PROVIDERS: PCP Family Medicine; Visit Provider Internal Medicine Cardiovascular Disease
DX: I48.92 Unspecified atrial flutter (principal)
CPT/HCPCS: 36415; 80048

== ENCOUNTER 2023-03-29 12:18 | Emergency (ER) | payer OTHER, SELFPAY ==
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
[2023-03-29 12:42] VITALS: BP 186/81; PULSE 87; O2SAT 98
[2023-03-29 12:43] VITALS: BP 165/79; PULSE 78; RESP 18; TEMP 37; O2SAT 97; BMI 44.8
[2023-03-29 14:38] VITALS: BP 155/68; PULSE 68; RESP 18; TEMP 36.8; O2SAT 68
== END 2023-03-29 14:38 | disposition home or self-care (01) ==
PROVIDERS: Emergency Provider Emergency Medicine
DX: Z04.1 Encounter for examination and observation following transport accident (principal); R51.9 Headache, unspecified; M54.2 Cervicalgia; E04.1 Nontoxic single thyroid nodule
CPT/HCPCS: 70450; 72125; 99283; 99284

== ENCOUNTER 2023-03-31 17:37 | Outpatient (REF) | payer OTHER, SELFPAY ==
[2023-03-31 18:43] LABS: Influenza A PCR NEGATIVE (Negative); Influenza B PCR NEGATIVE (Negative); Resp Syncy Virus RNA Qual PCR NEGATIVE (Negative); SARS COV2 PCR INHOUSE NEGATIVE (Negative)
== END 2023-03-31 17:38 | disposition home or self-care (01) ==
LOC: HO.LNP 17:37
PROVIDERS: Visit Provider Family Medicine
DX: J06.9 Acute upper respiratory infection, unspecified (principal); Z20.822 Contact with and (suspected) exposure to COVID-19
CPT/HCPCS: 0241U; 87070

== ENCOUNTER 2023-05-02 12:15 | Outpatient (REF) | payer OTHER, SELFPAY ==
[2023-05-02 14:10] LABS: Free T4 (Free Thyroxine) 1.12 ng/dL (0.71-1.85); Thyroid Stimulating Hormone 1.61 uIU/mL (0.32-4.0)
== END 2023-05-02 12:16 | disposition home or self-care (01) ==
LOC: HO.HHCL 12:15
PROVIDERS: Visit Provider Family Medicine
DX: E04.1 Nontoxic single thyroid nodule (principal)
CPT/HCPCS: 36415; 84439; 84443

== ENCOUNTER 2023-05-05 08:41 | Outpatient (REF) | payer OTHER, SELFPAY ==
--- NOTE | ~2023-05-05 | XR_ITS ---
EXAMINATION: XR SHOULDER, RIGHT CLINICAL INFORMATION: Right shoulder pain COMPARISON: None available. TECHNIQUE: AP external rotation, Grashey, scapular Y, and axillary views of the right shoulder. FINDINGS: BONES: Bony structures are intact. There is no focal bone destruction or periosteal reaction seen. JOINTS: Alignment of joints is normal. SOFT TISSUE: Soft tissue is normal. No radiopaque foreign body or abnormal air collection is seen. XR/XR shoulder RT min 2V IMPRESSION: 1. Normal x-rays of right shoulder. No fracture or dislocation or signs of osteomyelitis are found. Follow-up MRI is recommended if symptoms persist. If MRI is not feasible, a CT scan could be considered.
== END 2023-05-05 08:42 | disposition home or self-care (01) ==
LOC: HO.XRAY 08:41
PROVIDERS: PCP Family Medicine; Visit Provider Family Medicine
DX: M25.511 Pain in right shoulder (principal)
CPT/HCPCS: 73030

== ENCOUNTER 2023-05-12 08:14 | Outpatient (REF) | payer OTHER, SELFPAY ==
--- NOTE | 2023-05-12 | EMG_ITS ---
Chief complaint: Patient says she had hysterectomy on 04/20/2023. Five days after, started having numbness on right 4th and 5th digits. She also says she has right shoulder pain. Denies any elbow pain. No intrinsic weakness or atrophy noted. Patient was seen with a flatbed company driver. Reason for referral: Evaluate for ulnar neuropathy Referred by: Dr. Cynthia Carson Procedure done: Right upper extremity NCS/EMG Precautions and/or limitations: None The limb temperature was monitored continuously and remained between 32-36 degrees C during the performance of the NCS. Nerve Conduction Studies Anti Sensory Summary Table ?Stim Site NR Onset (ms) Norm Onset (ms) Peak (ms) Norm Peak (ms) O-P Amp (?V) Norm O-P Amp Site1 Site2 Delta-0 (ms) Dist (cm) Lincoln (m/s) Norm Lincoln (m/s) Right Median Anti Sensory (2nd Digit) Wrist ? 2.9 3.6 <3.6 17.9 >10 Wrist 2nd Digit 2.9 14.0 48 Right Radial Anti Sensory (Thumb) Forearm ? 0.9 1.8 <3.1 40.8 Forearm Thumb 0.9 0.0 Right Ulnar Anti Sensory (5th Digit) Wrist ? 2.0 2.9 <3.7 4.9 >15.0 Wrist 5th Digit 2.0 14.0 70 Motor Summary Table ?Stim Site NR Onset (ms) Norm Onset (ms) O-P Amp (mV) Norm O-P Amp iAmp (mV) Amp (1st) (%) Site1 Site2 Delta-0 (ms) Dist (cm) Lincoln (m/s) Norm Lincoln (m/s) Right Median Motor (Abd Poll Brev) Wrist ? 3.9 <3.9 8.1 >4.5 9.4 100.0 Elbow Wrist 3.7 21.0 57 >45 Elbow ? 7.6 7.7 8.9 95.1 Right Ulnar Motor (Abd Dig Minimi) Wrist ? 2.5 <3.0 7.7 >5 9.1 100.0 B Elbow Wrist 3.3 17.5 53 >45 B Elbow ? 5.8 8.8 10.4 114.3 A Elbow B Elbow 1.8 10.0 56 >45 A Elbow ? 7.6 7.8 9.4 101.3 EMG ?Side Muscle Nerve Root Ins Act Fibs Psw Amp Dur Poly Recrt Int Pat Comment Right 1stDorInt Ulnar C8-T1 Nml Nml Nml Nml Nml 0 Nml Complete Right FlexCarRad Median C6-7 Nml Nml Nml Nml Nml 0 Nml Complete Right Biceps Musculocut C5-6 Nml Nml Nml Nml Nml 0 Nml Complete Right Triceps Radial C6-7-8 Nml Nml Nml Nml Nml 0 Nml Complete Right Deltoid Axillary C5-6 Nml Nml Nml Nml Nml 0 Nml Complete FINDINGS: Right ulnar sensory nerve showed small amplitude. All other nerves tested were within normal. Concentric needle EMG was performed in selected muscles of the right upper extremity. Study did not reveal signs of electric abnormalities as shown in the table below. IMPRESSION: 1. There is electrodiagnostic findings suggestive for right ulnar neuropathy but difficult to localize. There was no conduction block across the elbow.. 2. There is no electrodiagnostic evidence for median neuropathy, brachial plexopathy, or cervical radiculopathy. CLINICAL COMMENT: Symptoms have only been less than 1 month. Unable to localize ulnar neuropathy at this time. If symptoms persist, repeat EMG in 3 months. Thank you for your kind referral. Rosie Moreno MD, AMARIS Board Certified, [place] Board [employer] and Rehabilitation (ABPMR) Board Certified, [place] Board of Electrodiagnostic Medicine (ABEM) [place] [id number] [facility]
== END 2023-05-12 08:15 | disposition home or self-care (01) ==
LOC: HO.NEURO 08:14
PROVIDERS: PCP Family Medicine; Visit Provider Family Medicine
DX: R20.2 Paresthesia of skin (principal)
CPT/HCPCS: 95886; 95909

== ENCOUNTER → 2023-05-12 08:18 | Outpatient (BNV) | payer OTHER, SELFPAY | PROVIDERS: PCP Family Medicine; Visit Provider Physical Medicine & Rehabilitation | DX: G56.21 Lesion of ulnar nerve, right upper limb (principal) | CPT/HCPCS: 95886; 95909 ==

== ENCOUNTER 2023-05-17 14:39 | Outpatient (REF) | payer OTHER, SELFPAY ==
--- NOTE | ~2023-05-17 | US_ITS ---
EXAMINATION: US THYROID CLINICAL INFORMATION: Thyroid nodule. COMPARISON: CT cervical spine without contrast 03/29/2023. TECHNIQUE: Linear transducer deleon-scale and color Doppler examination with attention to the region of the thyroid. FINDINGS: SIZE: Measurements of the thyroid lobes and nodules are given in sagittal, anteroposterior and transverse dimensions respectively. Right Thyroid Lobe: 4.1 x 1.4 x 1.1 cm, volume 3.3 mL. Parenchyma: The gland echotexture is homogeneous. Thyroid vascularity is normal. Left Thyroid Lobe: 4.2 x 1.9 x 2.2 cm, volume 9.2 mL. Parenchyma: The gland echotexture is homogeneous. Thyroid vascularity is normal. Isthmus: 0.2 cm in maximum AP dimension. Estimated total number of nodules greater than or equal to 1 cm: 1. [employer] Agent nodules are described as follows: 1. Location: Left mid. Size: 1.6 x 1.5 x 1.3 cm, volume 1.6 mL. Nodule characteristics: Composition: Solid (2). Echogenicity: Cannot be determined (1). Shape: Taller than wide (3). Margins: Smooth (0). Echogenic Foci: Peripheral calcifications (2). ACR TI-RADS total points: 8 ACR TI-RADS category: 5 NODES: No lymphadenopathy is seen in the tissue surrounding the thyroid gland. US/US thyroid IMPRESSION: Very suspicious left thyroid nodule. Fine-needle aspiration recommended. ACR TI-RADS RECOMMENDATION REFERENCE: Ultrasound-guided fine-needle aspiration, followup ultrasound, no further follow up. * TR1 (0 point) and TR2 (2 points): No FNA or follow up. * TR3 (3 points): FNA if more than or equal to 2.5 cm in maximum dimension, followup ultrasound in 1, 3 and 5 years if 1.5 to 2.4 cm in maximum dimension. * TR4 (4-6 points): FNA if more than or equal to 1.5 cm in maximum dimension, followup ultrasound in 1, 2, 3 and 5 years if 1 to 1.4 cm in maximum dimension. * TR5 (more than or equal to 7 points): FNA if more than or equal to 1 cm in maximum dimension, followup ultrasound every year for 5 years if 0.5 to 0.9 cm in maximum dimension. * TR3, TR4 or TR5 nodules that are below the size threshold for followup receive no follow up. Findings will be communicated by the [place] workflow senior construction manager
== END 2023-05-17 14:40 | disposition home or self-care (01) ==
LOC: HO.US 14:39
PROVIDERS: PCP Family Medicine; Visit Provider Family Medicine
DX: E04.1 Nontoxic single thyroid nodule (principal)
CPT/HCPCS: 76536

== ENCOUNTER → 2023-05-24 15:00 | Outpatient (REF) | payer OTHER, SELFPAY | LOC: HO.SL 15:00 | PROVIDERS: Visit Provider Internal Medicine Cardiovascular Disease | DX: G47.33 Obstructive sleep apnea (adult) (pediatric) (principal); I48.92 Unspecified atrial flutter | CPT/HCPCS: 95806 ==

== ENCOUNTER → 2023-05-24 15:20 | Outpatient (BNV) | payer OTHER, SELFPAY | PROVIDERS: Visit Provider Internal Medicine | DX: G47.33 Obstructive sleep apnea (adult) (pediatric) (principal) | CPT/HCPCS: 95806 ==

== ENCOUNTER 2023-06-02 12:35 | Outpatient (REF) | payer OTHER, SELFPAY ==
--- NOTE | ~2023-06-02 | XR_ITS ---
EXAMINATION: XR KNEE, RIGHT XR KNEE, LEFT XR KNEE AP STANDING CLINICAL INFORMATION: Pain. COMPARISON: Radiographs dated 04/21/2021. TECHNIQUE: Lateral and axial views of the right knee were obtained. Lateral and axial views of the left knee were obtained. AP bilateral standing view of the knees was obtained. FINDINGS: Right knee: Bony mineralization is normal. The lateral and medial joint space compartments are well-maintained. There is marked narrowing of the patellofemoral compartment. There is peripheral osteophyte formation of the lateral and patellofemoral compartments. No fracture, dislocation or significant joint effusion is seen. There is no foreign body. Left knee: Bony mineralization is normal. The lateral and medial joint space compartments are well-maintained. There is marked narrowing of the patellofemoral compartment. There is tricompartment peripheral osteophyte formation, most pronounced of the patellofemoral compartment. No fracture or dislocation is seen. There is no significant joint effusion. No foreign body is noted. XR/XR knee LT 2V IMPRESSION: There are degenerative changes of the bilateral knees, most pronounced in the respective patellofemoral compartments. No fracture or dislocation is seen. No significant varus or valgus configuration is noted bilaterally.
--- NOTE | ~2023-06-02 | XR_ITS ---
EXAMINATION: XR KNEE, RIGHT XR KNEE, LEFT XR KNEE AP STANDING CLINICAL INFORMATION: Pain. COMPARISON: Radiographs dated 04/21/2021. TECHNIQUE: Lateral and axial views of the right knee were obtained. Lateral and axial views of the left knee were obtained. AP bilateral standing view of the knees was obtained. FINDINGS: Right knee: Bony mineralization is normal. The lateral and medial joint space compartments are well-maintained. There is marked narrowing of the patellofemoral compartment. There is peripheral osteophyte formation of the lateral and patellofemoral compartments. No fracture, dislocation or significant joint effusion is seen. There is no foreign body. Left knee: Bony mineralization is normal. The lateral and medial joint space compartments are well-maintained. There is marked narrowing of the patellofemoral compartment. There is tricompartment peripheral osteophyte formation, most pronounced of the patellofemoral compartment. No fracture or dislocation is seen. There is no significant joint effusion. No foreign body is noted. XR/XR knee standing BI IMPRESSION: There are degenerative changes of the bilateral knees, most pronounced in the respective patellofemoral compartments. No fracture or dislocation is seen. No significant varus or valgus configuration is noted bilaterally.
--- NOTE | ~2023-06-02 | XR_ITS ---
EXAMINATION: XR KNEE, RIGHT XR KNEE, LEFT XR KNEE AP STANDING CLINICAL INFORMATION: Pain. COMPARISON: Radiographs dated 04/21/2021. TECHNIQUE: Lateral and axial views of the right knee were obtained. Lateral and axial views of the left knee were obtained. AP bilateral standing view of the knees was obtained. FINDINGS: Right knee: Bony mineralization is normal. The lateral and medial joint space compartments are well-maintained. There is marked narrowing of the patellofemoral compartment. There is peripheral osteophyte formation of the lateral and patellofemoral compartments. No fracture, dislocation or significant joint effusion is seen. There is no foreign body. Left knee: Bony mineralization is normal. The lateral and medial joint space compartments are well-maintained. There is marked narrowing of the patellofemoral compartment. There is tricompartment peripheral osteophyte formation, most pronounced of the patellofemoral compartment. No fracture or dislocation is seen. There is no significant joint effusion. No foreign body is noted. XR/XR knee RT 2V IMPRESSION: There are degenerative changes of the bilateral knees, most pronounced in the respective patellofemoral compartments. No fracture or dislocation is seen. No significant varus or valgus configuration is noted bilaterally.
== END 2023-06-02 12:36 | disposition home or self-care (01) ==
LOC: HO.HOSX 12:35
PROVIDERS: Visit Provider Physician Assistant
DX: M17.11 Unilateral primary osteoarthritis, right knee (principal); M25.562 Pain in left knee
CPT/HCPCS: 73560; 73565; 99212

== ENCOUNTER 2023-06-02 12:51 | Outpatient (AMB) | payer OTHER, SELFPAY ==
--- NOTE | 2023-06-02 13:25 | MHC.OFFVIS ---
Intake Vital Signs 06/02/23 13:27 Height 5 ft 2 in Weight 244 lb BMI 44.6 Intake Visit Reasons: OV - Rt Knee pain, last inj 12/13/21 Intake Note: Ashley 56 year old female who presents today for a follow up of her right knee O.A pain, last injections from 12/13/21 helped and is doing well with her knee. Patient reports she had a hysterectomy and is here to make sure all is well with her knee. Xrays updated in office. Allergies No Known Allergies [No Known Allergies*] Allergy (Verified 06/02/23 13:27) HPI OV - Rt Knee pain, last inj 12/13/21 HPI Details Ashley 56 year old female who presents today for a follow up of her right knee O.A pain, last injections from 12/13/21 helped and is doing well with her knee. She currently reports no discomfort with her knee. [facility] Medical History Hospital discharge follow-up New onset atrial flutter Poor historian Encounter for screening colonoscopy Cervical cancer screening Women's annual routine gynecological examination Morbid obesity Bacterial vaginosis Vaginal itching Bladder pain Language barrier History of cardioversion Atrial flutter, paroxysmal On beta pat at home On anticoagulant therapy Atrial fibrillation and flutter Atrial fibrillation Diabetes Essential hypertension Abdominal pain Lab test negative for COVID-19 virus Arthritis Anemia GERD (gastroesophageal reflux disease) Hepatitis Depression Hypercholesteremia Diabetes HTN (hypertension) Surgical History Hx of abdominal surgery Hx of dilation and curettage Hx of excision of mass Hx of section Hx of tubal ligation Hx of reduction mammoplasty Hx of cholecystectomy Hx of gastric bypass Bariatric surgery status Social History Household Members: Children Housing: Apartment Are you a primary child care center assistant director to a significant other at home: No Do you presently have visiting nurse or other home services: No Alcohol intake: never Comment: history-long ago fall when having issues with knees Patient Tobacco Use Status: Never used Tobacco e-Cigarette/Vaping Use: Never Used Advance Directives Date on File: 11/09/21 service: No Current occupational status: disabled Current occupation: rt handed Female Reproductive History Menstrual Age of Menarche: 11 Review of Systems Const All systems reviewed & are unremarkable except as noted in HPI and below Physical Exam Vital Signs: BMI result Body Mass Index 44.6 Const General: cooperative and no acute distress Orientation/consciousness: patient oriented x3 Resp Effort & Inspection: normal respiratory effort and able to speak in complete sentences Cardio Rate: regular rate Peripheral pulses: Peripheral pulses 2+ throughout GI Palpation (GI): Soft to palpation Skin Lesions: no lesions Rashes: no rashes Neuro General: patient oriented x3 Extrem Other: Right knee: Normal to inspection. No ecchymosis, erythema, or joint effusion. No tenderness to palpation to the medial or lateral joint lines. Full knee extension and flexion. Crepitus felt with ROM. NVI. Psych Mental Status: mental status grossly normal Assessment & Plan Assessment & Plan (1) Osteoarthritis of right knee: Code(s): M17.11 - Unilateral primary osteoarthritis, right knee Plan: Ashley 56 year old female who presents today for a follow up of her right knee O.A pain, last injections from 12/13/21 helped and is doing well with her knee. She is currently not experiencing any discomfort with her knee at this time therefore repeat injection was deferred. X-rays obtained in the office today were reviewed by me, Sue Sharp PA-C, and reveal bilateral knee osteoarthritis. No acute fracture or dislocation. She will f/u prn, sooner if needed. Orders: Orders XR knee standing BI Today M25.569 - Pain in unspecified knee XR knee RT 2V Today M25.569 - Pain in unspecified knee XR knee LT 2V Today M25.569 - Pain in unspecified knee Coding Level of Care Code Est Pt Level 3 (39845) Diagnoses Osteoarthritis of right knee M17.11
[2023-06-02 13:27] VITALS: BMI 44.6
== END 2023-06-02 13:53 | disposition home or self-care (01) ==
LOC: HO.HOS 12:51
PROVIDERS: PCP Family Medicine; Visit Provider Physician Assistant
DX: M17.11 Unilateral primary osteoarthritis, right knee (principal)
CPT/HCPCS: 99213

== ENCOUNTER 2023-06-23 10:15 | Outpatient (AMB) | payer OTHER, SELFPAY ==
[2023-06-23 10:17] VITALS: BMI 44.6
--- NOTE | 2023-06-23 10:17 | MHC.OFFVIS ---
Intake Vital Signs 06/23/23 10:17 Height 5 ft 2 in Weight 244 lb BMI 44.6 Handedness Right Intake Visit Reasons: Newprob-B/L shoulder pain Intake Note: Ashley 56 year old right hand dominant female who presents today for a evaluation of her bilateral shoulder pain. Patient reports off and on pain for 3 months . She states that her right shoulder is worse than the left shoulder. Patient reports she never had this pain before. Allergies No Known Allergies [No Known Allergies*] Allergy (Verified 06/23/23 10:18) HPI Newprob-B/L shoulder pain HPI Details 57-year-old right hand dominant female, who is Nauruan speaking, presents in the office today for an evaluation of bilateral shoulder pain. The patient reports intermittent pain for the last 3 months, since 03/2023. She claims her right shoulder is worse than her left shoulder. She states she has never had this pain before. [facility] Medical History Hospital discharge follow-up New onset atrial flutter Poor historian Encounter for screening colonoscopy Cervical cancer screening Women's annual routine gynecological examination Morbid obesity Bacterial vaginosis Vaginal itching Bladder pain Language barrier History of cardioversion Atrial flutter, paroxysmal On beta pat at home On anticoagulant therapy Atrial fibrillation and flutter Atrial fibrillation Diabetes Essential hypertension Abdominal pain Lab test negative for COVID-19 virus Arthritis Anemia GERD (gastroesophageal reflux disease) Hepatitis Depression Hypercholesteremia Diabetes HTN (hypertension) Surgical History Hx of abdominal surgery Hx of dilation and curettage Hx of excision of mass Hx of section Hx of tubal ligation Hx of reduction mammoplasty Hx of cholecystectomy Hx of gastric bypass Bariatric surgery status Social History Household Members: Children Housing: Apartment Are you a primary post acute care registered nurse to a significant other at home: No Do you presently have visiting nurse or other home services: No Alcohol intake: never Comment: history-long ago fall when having issues with knees Patient Tobacco Use Status: Never used Tobacco e-Cigarette/Vaping Use: Never Used Advance Directives Date on File: 11/09/21 service: No Current occupational status: disabled Current occupation: rt handed Female Reproductive History Menstrual Age of Menarche: 11 Review of Systems Const All systems reviewed & are unremarkable except as noted in HPI and below Physical Exam Vital Signs: BMI result Body Mass Index 44.6 Const General: cooperative, healthy appearing and no acute distress Resp Effort & Inspection: normal respiratory effort and able to speak in complete sentences Cardio Rate: regular rate Peripheral pulses: Peripheral pulses 2+ throughout GI Palpation (GI): Soft to palpation Skin Lesions: no lesions Rashes: no rashes Extrem Other: Left shoulder: Forward flexion and abduction lacking 30 degrees. Negative drop arm. Negative empty can. Negative cross-body reach. Occasional numbness and tingling in the bilateral little and ring digits. Assessment & Plan Assessment & Plan (1) Cervical radiculopathy: Code(s): M54.12 - Radiculopathy, cervical region Plan Ms. Pavon is a 57-year-old right hand dominant female, who is Nauruan speaking, presents in the office today for an evaluation of bilateral shoulder pain. The patient reports intermittent pain for the last 3 months, since 03/2023. She claims her right shoulder is worse than her left shoulder. She states she has never had this pain before. The patient was referred to Pain Management for further evaluation and treatment of her C-spine. Follow up will be PRN, or sooner if needed. X-rays of the left shoulder which were obtained while in the office today and were reviewed by me, Sue Sharp PA-C, revealed no evidence of acute fracture or dislocation. CT of her C-spine, obtained on 03/29/2023, revealed: Head: This component of the examination is unremarkable in that there is no evidence of acute intracranial hemorrhage. Cervical spine: No acute cervical spine fracture and no posttraumatic spinal subluxation. 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 Grossly no spinal canal compromise. No bony neuroforaminal encroachment. There is a peripherally calcified nodule within the left lobe of the thyroid gland that measures 1.7 cm in diameter. Based on the recommendations of the ACR Incidental Thyroid Findings Committee (JACR 2015 Aug; 12(2):143-50), further evaluation by thyroid ultrasound is recommended for solitary incidental thyroid nodules greater than or equal to 1.5 cm in largest axial dimension in patients age 35 years and older who do not have limited life expectancy or significant morbidities, unless clinically warranted. Orders: Orders XR shoulder LT min 2V Today M25.519 - Pain in unspecified shoulder Referrals Pain Management Referral M54.12 - Radiculopathy, cervical region Patient Instructions: Scribed for Sue Sharp PA-C by Stephany Pack medical staff coordinator, on 06/23/2023 at 10:17 am, EST. Coding Level of Care Code Est Pt Level 4 (59892) Diagnoses Cervical radiculopathy M54.12
== END 2023-06-23 10:56 | disposition home or self-care (01) ==
PROVIDERS: PCP Family Medicine; Visit Provider Physician Assistant
DX: M54.12 Radiculopathy, cervical region (principal); M25.511 Pain in right shoulder; M25.512 Pain in left shoulder
CPT/HCPCS: 99214

== ENCOUNTER 2023-06-23 12:00 | Outpatient (REF) | payer OTHER, SELFPAY | END 2023-06-23 12:01 | disposition home or self-care (01) | LOC: HO.HOSX 12:00 | PROVIDERS: Visit Provider Physician Assistant | DX: M25.512 Pain in left shoulder (principal); M54.12 Radiculopathy, cervical region | CPT/HCPCS: 73030; 99212 ==

== ENCOUNTER 2023-07-10 11:02 | Inpatient (IN) | payer OTHER, SELFPAY ==
--- NOTE | ~2023-07-10 | CT_ITS ---
EXAMINATION: CT ABDOMEN AND PELVIS WITH CONTRAST CLINICAL INFORMATION: Left-sided abdominal pain. COMPARISON: Multiple priors, most recently 08/13/2020, dating back to 10/09/2012 TECHNIQUE: Multidetector volumetric images were obtained from the superior aspect of the liver through the pubic symphysis following administration 85 mL of Omnipaque 350 intravenous contrast. Sagittal and coronal reformatted images were obtained on the technologist's workstation. Oral contrast: No This CT examination was performed using dose optimization techniques as appropriate, variously including the following: *Automated exposure control *Adjustment of mA and/or kV according to patient size (this includes techniques or standardized protocols for targeted exams where dose is matched to indication/reason for exam; i.e. extremities or head) *Use of iterative reconstruction technique DLP: 1071 mGy-cm FINDINGS: LUNG BASES: Mild dependent atelectasis. No consolidation. Heart is normal in size. No pericardial effusion. LIVER, GALLBLADDER, AND BILIARY TREE: The liver is normal in size, shape, and attenuation. No focal hepatic lesion or biliary ductal dilatation is present. Status post cholecystectomy. PANCREAS: Unremarkable. SPLEEN: Unremarkable. ADRENAL GLANDS: Unremarkable. KIDNEYS AND URETERS: Again seen is focal renal cortical scarring at the right lower pole with an associated calcification, unchanged. Small subcentimeter focus of cortical hypoattenuation in the right kidney is too small to characterize, though statistically favored to correspond to a simple cyst. No recommended imaging follow-up. There is a perinephric stranding around the left kidney which is more pronounced as compared to prior. There is subtle patchy diminished cortical enhancement at the left upper renal pole lateral cortex which nonspecific but raise the possibility of pyelonephritis. No appreciable hydroureter or ureterolithiasis. Ureters are normal in course and caliber. Again seen is a left periaortic lesion just distal to the left renal vascular pedicle measuring 4 x 3.9 x 4 cm with a thin peripheral rim of calcification as well as subtle peripheral fat attenuation. This is slightly decreased in size as compared to the initial study from 2014 (4.8 x 3.8 x 5.4 cm) at which time it was fluid attenuation. BLADDER: Unremarkable. GASTROINTESTINAL TRACT: Status post bariatric gastric sleeve procedure with chain sebastian along the greater curvature of the stomach. Small bowel and colon are normal in caliber. There are new appendicoliths at the neck of the appendix without appreciable appendiceal thickening or surrounding periappendiceal inflammation. Mild right-sided colonic diverticulosis. No intraperitoneal free fluid. ABDOMINAL WALL: There is a small complex collection of intermediate attenuation just superficial to the ventral abdominal wall in the epigastric region measuring 3.3 x 1.5 x 4.6 cm, possibly corresponding to the remnants of a postoperative hematoma or scar tissue. Minimal surrounding fat stranding in this region. There is a small fat-containing umbilical hernia. LYMPH NODES: No adenopathy. As noted above, there is a 4 cm left retroperitoneal mass appears unchanged as compared to prior. VASCULAR: Unremarkable. PELVIC VISCERA: Uterus is surgically absent. Lesions. OSSEOUS STRUCTURES: Multilevel degenerative spondylosis in the thoracolumbar spine with marked facet arthropathy in the lower lumbar spine. Osteophyte is present in the hips and SI joints. CT/CT abdomen pelvis w IV con IMPRESSION: 1. Subtle patchy diminished cortical enhancement at the left upper renal pole with surrounding perinephric stranding which raise the possibility of pyelonephritis. Recommend correlation with urinalysis. No evidence of obstructive uropathy. 2. 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 The lack of growth over time suggests a benign lesion. 3. A 3.3 x 1.5 x 4.6 cm complex collection in the ventral abdominal wall in the epigastric region, likely corresponding to the remnants of a postoperative hematoma or scar tissue. 4. Mild colonic diverticulosis without evidence of acute diverticulitis. 5. Status post bariatric gastric sleeve procedure. No acute abnormalities are identified in the left upper quadrant. 6. Unchanged focal renal cortical scarring at the lower pole of the right kidney. 7. New appendicoliths at the neck of the appendix without evidence of acute appendicitis. Fleischner guidelines were followed.
[2023-07-10 11:34] VITALS: BP 133/74; PULSE 118; RESP 19; TEMP 39.1; O2SAT 97; BMI 43.1
--- NOTE | 2023-07-10 11:35 | ED_ITS ---
HPI - General Adult General Chief complaint: General Medical Stated complaint: Flu symptoms Time Seen by Provider: 07/10/23 21:07 Related Data Home Medications Medication Instructions Recorded Confirmed baclofen 10 mg tablet 10 mg PO TID PRN Spasms 04/29/20 07/11/23 cholecalciferol (vitamin D3) 50 50 mcg PO DAILY 04/29/20 07/11/23 mcg (2,000 unit) tablet (Vitamin D3) multivitamin 1 tab PO DAILY 04/29/20 07/11/23 omeprazole 20 mg tablet,delayed 20 mg PO DAILY@0630 04/29/20 07/11/23 release fluticasone propionate 50 2 spray intranasal DAILY PRN 10/22/21 07/11/23 mcg/actuation nasal Allergy Symptoms spray,suspension atorvastatin 80 mg tablet 80 mg PO BEDTIME 10/27/21 07/11/23 insulin glargine 100 unit/mL (3 8 unit subcut DAILY 11/06/21 07/11/23 mL) subcutaneous pen (Lantus Solostar U-100 Insulin) acetaminophen 650 mg 650 mg PO Q8H PRN fever 01/04/22 07/11/23 tablet,extended release docusate sodium 100 mg capsule 100 mg PO BID PRN Constipation 01/04/22 07/11/23 fluoxetine 20 mg capsule 40 mg PO DAILY 01/04/22 07/11/23 loratadine 10 mg tablet 10 mg PO DAILY PRN Allergy Symptoms 01/04/22 07/11/23 metformin 500 mg tablet,extended 1,000 mg PO BID 01/04/22 07/11/23 release 24 hr sennosides 8.6 mg tablet (senna) 17.2 mg PO BEDTIME PRN constipation 03/08/22 07/11/23 amlodipine 5 mg tablet 5 mg PO DAILY 03/13/23 07/11/23 lisinopril 40 mg tablet 40 mg PO DAILY 03/13/23 07/11/23 magnesium oxide 400 mg PO BEDTIME 07/11/23 07/11/23 trazodone 50 mg tablet 100 mg PO BEDTIME PRN insomnia 07/11/23 07/11/23 Previous Rx's Medication Instructions Recorded insulin lispro 100 unit/mL 1 sliding scale dose subcut 10/26/21 subcutaneous pen (Humalog Bekah WEBB #15 mL (U-100) Insulin) pen needle, diabetic 32 gauge x #100 ea 10/26/21 1/ rivaroxaban 20 mg tablet (Xarelto) 20 mg PO DAILY@1700 #30 tabs 10/26/21 diclofenac sodium 75 mg 75 mg PO BID PRN pain #60 tabs 08/05/22 tablet,delayed release Allergies Allergy/AdvReac Type Severity Reaction Status Date / Time No Known Allergies Allergy Verified 06/23/23 10:18 [No Known Allergies*] ON LICENSE OF [facility] Past Medical History Onset Date is defined in the Problem List Problems that require an onset date and time if occurred within 24 hrs of arrival to the ED Aortic Dissection and Rupture; Neurologic impairment; Cardiopulmonary Arrest; Endotracheal Intubation; Insertion or Replacement of Mechanical Circulatory Assist Device Medical History Hospital discharge follow-up New onset atrial flutter Poor historian Encounter for screening colonoscopy Cervical cancer screening Women's annual routine gynecological examination Morbid obesity Bacterial vaginosis Vaginal itching Bladder pain Language barrier History of cardioversion Atrial flutter, paroxysmal On beta pat at home On anticoagulant therapy Atrial fibrillation and flutter Atrial fibrillation Diabetes Essential hypertension Abdominal pain Lab test negative for COVID-19 virus Arthritis Anemia GERD (gastroesophageal reflux disease) Hepatitis Depression Hypercholesteremia Diabetes HTN (hypertension) Surgical History Hx of abdominal surgery Hx of dilation and curettage Hx of excision of mass Hx of section Hx of tubal ligation Hx of reduction mammoplasty Hx of cholecystectomy Hx of gastric bypass Bariatric surgery status Social History Social History Household Members: Children Housing: Apartment Are you a primary career development consultant to a significant other at home: No Do you presently have visiting nurse or other home services: No Alcohol intake: never Comment: history-long ago fall when having issues with knees Patient Tobacco Use Status: Never used Tobacco Smoked in Last 30 Days: No e-Cigarette/Vaping Use: Never Used Use of substances other than those prescribed or required for medical reasons: No Advance Directives: No Advance Directives Information Provided: No Advance Directives Date on File: 11/09/21 Patient : No service: No Current occupational status: disabled Current occupation: rt handed Physical Exam ED Vital Signs: Vital Signs - 24 hr 07/10/23 17:56 07/10/23 20:48 07/10/23 21:57 Temperature 101.5 F H 99.8 F 99.7 F Pulse Rate 109 H 96 103 H Respiratory Rate 20 16 16 Blood Pressure 128/55 L 139/70 139/66 Pulse Oximetry 97 98 99 Oxygen Delivery Method Room Air Room Air Room Air 07/10/23 23:25 07/11/23 00:53 Temperature 101.3 F H 103.0 F H Pulse Rate 87 Respiratory Rate 18 Blood Pressure 135/63 Pulse Oximetry 96 Oxygen Delivery Method Room Air BMI result Body Mass Index 43.1 Course Course Course Narrative: RME performed by Debora Ann PA-C. Patient is a 57 year old assigned female at presenting to the emergency department with a headache and a fever. Patient states that her fever has been as high as 110 degrees F. Detailed physical exam and review of systems are deferred to the x ray electronics wiring technician. Labs and swabs ordered. Patient placed back in the waiting room pending room availability and results. Patient seen and dispositioned by Dr. Melendez. Please refer to his note from this date. Medications Administered Generic Name Dose Route Start Last Admin Trade Name Freq PRN Reason Stop Dose Admin Acetaminophen 650 mg 07/11/23 01:44 07/11/23 15:22 Acetaminophen 325 Mg Tablet PO 650 mg Q6H PRN Administration Fever >100.4 Sodium Chloride 1,000 mls @ 125 mls/hr 07/11/23 01:45 07/11/23 11:16 Ns IVCONT 125 mls/hr .Q8H PHYLICIA Administration Oxycodone HCl 5 mg 07/11/23 01:44 07/11/23 08:16 Oxycodone Hcl Immed Release 5 Mg Tablet PO 5 mg Q6H PRN Administration Pain, Moderate(Pain Scale 4-6) Sodium Chloride 3 ml 07/11/23 08:00 07/11/23 08:17 0.9 % Sodium Chloride Flush 3 Ml Syringe IVFLUSH 3 ml QSHIFT PHYLICIA Administration Discontinued Medications Generic Name Dose Route Start Last Admin Trade Name Freq PRN Reason Stop Dose Admin Acetaminophen 975 mg 07/10/23 11:40 07/10/23 11:43 Acetaminophen 325 Mg Tablet PO 07/10/23 11:41 975 mg ONCE ONE Administration Acetaminophen 650 mg 07/10/23 18:06 07/10/23 18:13 Acetaminophen 325 Mg Tablet PO 07/10/23 18:07 650 mg ONCE ONE Administration Acetaminophen 975 mg 07/11/23 00:54 07/11/23 01:00 Acetaminophen 325 Mg Tablet PO 07/11/23 00:55 975 mg ONCE ONE Administration Sodium Chloride 1,000 mls @ 999 mls/hr 07/10/23 21:30 07/11/23 01:00 Ns IV 07/10/23 22:30 Infused .Q1H1M PHYLICIA Infusion Ceftriaxone Sodium 1 gm/ 50 mls @ 100 mls/hr 07/10/23 22:48 07/11/23 00:10 Sodium Chloride IV 07/10/23 23:17 Infused ONCE ONE Infusion Ceftriaxone Sodium 1 gm/ 50 mls @ 100 mls/hr 07/11/23 01:58 07/11/23 03:10 Sodium Chloride IV 07/11/23 02:27 Infused ONCE ONE Infusion Iohexol 100 ml 07/10/23 22:42 07/10/23 22:42 Iohexol 350 Mg/Ml 100 Ml Infus..Btl IV 07/10/23 22:43 85 ml ONCE ONE Administration Ketorolac Tromethamine 15 mg 07/10/23 21:21 07/10/23 22:08 Ketorolac Tromethamine 15 Mg/Ml Vial IVPUSH 07/10/23 21:22 15 mg ONCE ONE Administration Ketorolac Tromethamine 15 mg 07/11/23 01:11 07/11/23 01:19 Ketorolac Tromethamine 15 Mg/Ml Vial IVPUSH 07/11/23 01:12 15 mg ONCE ONE Administration Medical Decision Making Lab Data 07/11/23 05:53 07/11/23 05:53 Labs: Lab Results 07/10/23 07/10/23 07/10/23 Range/Units 11:52 22:04 23:19 WBC 17.0 H (4.8-10.8) X10*3/uL RBC 3.97 L (4.20-5.50) X10*6/uL Hgb 11.9 L (12.0-16.0) g/dl Hct 35.8 L (37.0-47.0) % MCV 90.2 (80.0-98.0) fL MCH 30.0 (27.0-33.0) pg MCHC 33.2 (31.0-35.0) g/dl RDW 14.2 (11.0-16.0) % Plt Count 268 (160-400) X10*3/uL MPV 9.5 (9.4-12.3) fL Immature Gran % (Auto) 0.5 H (0.0-0.4) % Neut % (Auto) 85.1 H (45-73) % Lymph % (Auto) 9.2 L (20-40) % [place] % (Auto) 5.0 (2-11) % Eos % (Auto) 0.0 (0-4) % Baso % (Auto) 0.2 (0-2) % Lymph # (Auto) 1.6 (1.2-4.9) X10*3/uL [place] # (Auto) 0.9 (0.1-1.2) X10*3/uL Eos # (Auto) 0.0 (0.0-0.4) X10*3/uL Baso # (Auto) 0.0 (0.0-0.2) X10*3/uL Abs Immat Gran (auto) 0.09 H (0.00-0.03) X10*3/uL Absolute Neuts (auto) 14.5 H (2.0-8.3) x10*3/uL Absolute Nucleated RBC 0.000 (0.0-0.012) X10*3/uL Nucleated RBC % (auto) 0.0 (0.0-0.2) /100WBC ESR 81 H (0-20) MM/HR Sodium 135 (135-145) mmol/L Potassium 4.1 (3.3-5.1) mmol/L Chloride 100 (96-108) mmol/L Carbon Dioxide 24 (22-29) mmol/L Anion Gap 15 (12-20) BUN 15 (9-16) mg/dL Creatinine 1.03 (0.5-1.4) mg/dL Estim Creat Clear Calc 69.3 Estimated GFR 55 Random Glucose 180 H (60-115) mg/dL Lactic Acid 1.2 (0.5-2.0) mmol/L Calcium 9.4 (8.4-10.2) mg/dL Magnesium 1.7 (1.6-2.6) mg/dL Total Bilirubin 0.9 (0.0-1.0) mg/dL AST 42 H (5-31) U/L ALT 42 H (0-31) U/L Alkaline Phosphatase 187 H (39-117) U/L C-Reactive Protein 19.18 H (< or = 0.50) mg/dL Total Protein 8.0 (6.5-8.0) g/dL Albumin 4.2 (3.5-5.0) g/dL Urine Color Dark Yellow Urine Appearance Turbid Urine pH 5.0 (5.0-9.0) Ur Specific [place] 1.025 (1.005-1.025) Urine Protein 100 (2+) H (Neg-Trace) mg/dL Urine Glucose (UA) Negative (Negative) mg/dL Urine Ketones Trace (Negative) mg/dL Urine Blood Large (3+) H (Negative) Urine Nitrite Negative (Negative) Ur Leukocyte Esterase Large (3+) H (Negative) Urine RBC 6-10 H (0-2) /HPF Urine WBC >50 H (0-5) /HPF Ur Squamous Epith Cells 6-10 (0-2) /HPF Urine Bacteria 4+ (None Seen) Hyaline Casts >20 (0-2) /LPF Influenza Type A (PCR) NEGATIVE (Negative) Influenza Type B (PCR) NEGATIVE (Negative) RSV RNA Qual (PCR) NEGATIVE (Negative) SARS-CoV-2 RNA (RT-PCR) NEGATIVE (Negative) Discharge Plan Discharge Clinical Impression: Pyelonephritis Patient Disposition: Admitted As Inpatient
[2023-07-10 12:01] LABS: MANUAL DIFF FLAG NO
[2023-07-10 12:06] LABS: Basophils Percent Auto 0.2 % (0-2); Hematocrit 35.8 % (37.0-47.0); Hemoglobin 11.9 g/dl (12.0-16.0); Imm Gran Abs Auto 0.09 X10*3/uL (0.00-0.03); Imm Gran Pct Auto 0.5 % (0.0-0.4); Lymphocytes Absolute Auto 1.6 X10*3/uL (1.2-4.9); Lymphocytes Percent Auto 9.2 % (20-40); Mean Corpuscular HGB Conc 33.2 g/dl (31.0-35.0); Mean Corpuscular Volume 90.2 fL (80.0-98.0); Mean Platelet Volume 9.5 fL (9.4-12.3); Monocytes Absolute Auto 0.9 X10*3/uL (0.1-1.2); Neutrophils Absolute Auto 14.5 x10*3/uL (2.0-8.3); Neutrophils Percent Auto 85.1 % (45-73); Platelet Count 268 X10*3/uL (160-400); Red Blood Count 3.97 X10*6/uL (4.20-5.50); Red Cell Distribution Width 14.2 % (11.0-16.0)
[2023-07-10 12:17] LABS: Alanine Aminotransferase 42 U/L (0-31); Albumin Level 4.2 g/dL (3.5-5.0); Alkaline Phosphatase 187 U/L (39-117); Anion Gap 15 (12-20); Aspartate Amino Transferase 42 U/L (5-31); Bilirubin Total 0.9 mg/dL (0.0-1.0); Blood Urea Nitrogen 15 mg/dL (9-16); C Reactive Protein 19.18 mg/dL (< or = 0.50); Calcium 9.4 mg/dL (8.4-10.2); Carbon Dioxide 24 mmol/L (22-29); Chloride 100 mmol/L (96-108); Creatinine Clr Calc Pharmacy 69.3; Estimated Glomerular Filt Rate 55; Glucose Random 180 mg/dL (60-115); Magnesium 1.7 mg/dL (1.6-2.6); Potassium 4.1 mmol/L (3.3-5.1); Sodium 135 mmol/L (135-145)
[2023-07-10 17:56] VITALS: BP 128/55; PULSE 109; RESP 20; TEMP 38.6; O2SAT 97
[2023-07-10] MEDS: Acetaminophen 325 MG TABLET 650 MG PO (18:13)
--- NOTE | 2023-07-10 18:14 | PC.NURSE ---
medicated with Tylenol 650mg PO for fever, per Marissa MULLINS. Pt also reports headache & dizziness. Ambulates with steady gait. Alert & oriented. Provider aware of patient's statements.
[2023-07-10 20:48] VITALS: BP 139/70; PULSE 96; RESP 16; TEMP 37.7; O2SAT 98
--- NOTE | 2023-07-10 21:29 | ED.GENADULT ---
HPI - General Adult General Chief complaint: General Medical Stated complaint: Flu symptoms Time Seen by Provider: 07/10/23 21:07 History of Present Illness HPI narrative: Patient is 57-year-old female presents today with having fever headache abdominal pain generalized malaise weakness. Patient is from home. History of diabetes history of atrial fibrillation currently on Xarelto. History of gastric bypass. History of total abdominal hysterectomy in April. Presented today also having abdominal pain that is more bilateral lower abdomen. There is positive fever. Feels tired. He there is pain on urination. Minimal coughing. Patient is vaccinated for COVID. Related Data Home Medications Medication Instructions Recorded Confirmed baclofen 10 mg tablet 10 mg PO TID PRN Spasms 04/29/20 03/13/23 cholecalciferol (vitamin D3) 50 50 mcg PO DAILY 04/29/20 03/13/23 mcg (2,000 unit) tablet (Vitamin D3) multivitamin 1 tab PO DAILY 04/29/20 03/13/23 omeprazole 20 mg tablet,delayed 20 mg PO DAILY 04/29/20 03/13/23 release fluticasone propionate 50 1 - 2 spray intranasal DAILY PRN 10/22/21 03/13/23 mcg/actuation nasal Allergy Symptoms spray,suspension atorvastatin 80 mg tablet 80 mg PO BEDTIME 10/27/21 03/13/23 insulin glargine 100 unit/mL (3 12 unit subcut BEDTIME 11/06/21 03/13/23 mL) subcutaneous pen (Lantus Solostar U-100 Insulin) acetaminophen 650 mg 650 mg PO Q8H PRN fever 01/04/22 03/13/23 tablet,extended release docusate sodium 100 mg capsule 100 mg PO BID PRN Constipation 01/04/22 03/13/23 fluoxetine 20 mg capsule 40 mg PO DAILY 01/04/22 03/13/23 loratadine 10 mg tablet 10 mg PO DAILY PRN Allergy Symptoms 01/04/22 03/13/23 metformin 500 mg tablet,extended 2,000 mg PO BID 01/04/22 03/13/23 release 24 hr trazodone 100 mg tablet 200 mg PO BEDTIME PRN Insomnia 01/04/22 03/13/23 sennosides 8.6 mg tablet (senna) 17.2 mg PO BEDTIME PRN constipation 03/08/22 03/13/23 amlodipine 5 mg tablet 5 mg PO DAILY 03/13/23 03/13/23 lisinopril 40 mg tablet 40 mg PO DAILY 03/13/23 03/13/23 Previous Rx's Medication Instructions Recorded insulin lispro 100 unit/mL 1 sliding scale dose subcut 10/26/21 subcutaneous pen (Humalog KwparamjitPen QIDACHS #15 mL (U-100) Insulin) pen needle, diabetic 32 gauge x #100 ea 10/26/2107/06 rivaroxaban 20 mg tablet (Xarelto) 20 mg PO DAILY@1700 #30 tabs 10/26/21 magnesium oxide 400 mg PO DAILY #30 tabs 11/14/21 diclofenac sodium 75 mg 75 mg PO BID PRN pain #60 tabs 08/05/22 tablet,delayed release Allergies Allergy/AdvReac Type Severity Reaction Status Date / Time No Known Allergies Allergy Verified 06/23/23 10:18 [No Known Allergies*] Review of Systems Review of Systems: Positive fever Yes all other systems are reviewed and are negative PMFSH Past Medical History Attestation statement: The following information was validated with the patient. Onset Date is defined in the Problem List Problems that require an onset date and time if occurred within 24 hrs of arrival to the ED Aortic Dissection and Rupture; Neurologic impairment; Cardiopulmonary Arrest; Endotracheal Intubation; Insertion or Replacement of Mechanical Circulatory Assist Device Medical History Hospital discharge follow-up New onset atrial flutter Poor historian Encounter for screening colonoscopy Cervical cancer screening Women's annual routine gynecological examination Morbid obesity Bacterial vaginosis Vaginal itching Bladder pain Language barrier History of cardioversion Atrial flutter, paroxysmal On beta pat at home On anticoagulant therapy Atrial fibrillation and flutter Atrial fibrillation Diabetes Essential hypertension Abdominal pain Lab test negative for COVID-19 virus Arthritis Anemia GERD (gastroesophageal reflux disease) Hepatitis Depression Hypercholesteremia Diabetes HTN (hypertension) Surgical History Hx of abdominal surgery Hx of dilation and curettage Hx of excision of mass Hx of section Hx of tubal ligation Hx of reduction mammoplasty Hx of cholecystectomy Hx of gastric bypass Bariatric surgery status Social History Social History Household Members: Children Housing: Apartment Are you a primary care attendant to a significant other at home: No Do you presently have visiting nurse or other home services: No Alcohol intake: never Comment: history-long ago fall when having issues with knees Patient Tobacco Use Status: Never used Tobacco e-Cigarette/Vaping Use: Never Used Advance Directives: No Advance Directives Information Provided: No Advance Directives Date on File: 11/09/21 service: No Current occupational status: disabled Current occupation: rt handed Physical Exam ED Vital Signs: Vital Signs - 24 hr 07/10/23 11:34 07/10/23 17:56 07/10/23 20:48 Temperature 102.3 F H 101.5 F H 99.8 F Pulse Rate 118 H 109 H 96 Respiratory Rate 19 20 16 Blood Pressure 133/74 128/55 L 139/70 Pulse Oximetry 97 97 98 Oxygen Delivery Method Room Air Room Air Room Air 07/10/23 21:57 07/10/23 23:25 07/11/23 00:53 Temperature 99.7 F 101.3 F H 103.0 F H Pulse Rate 103 H 87 Respiratory Rate 16 18 Blood Pressure 139/66 135/63 Pulse Oximetry 99 96 Oxygen Delivery Method Room Air Room Air BMI result Body Mass Index 43.1 Appearance: Alert. Oriented X3. No acute distress. Eyes: Pupils equal, round and reactive to light. ENT: Pharynx normal. Neck: Normal inspection. Neck supple. No lymph nodes noted. No crepitus CVS: Normal heart rate and rhythm. Pulses normal. Normal S1 and S2 Respiratory: No respiratory distress. Breath sounds normal. No Wheezing. No rales Abdomen: Soft and nontender. No rigidity. No distention. good BS x4 Skin: Skin warm and dry. Normal skin color. Normal skin turgor. Extremities: No lower extremity edema. Neurovascular intact to all extremities. No Lacerations. No Rash Neuro: Oriented X 3. No motor deficit. No sensory deficit. Moving all extermities. No slurred speech Medications Administered Discontinued Medications Generic Name Dose Route Start Last Admin Trade Name Freq PRN Reason Stop Dose Admin Acetaminophen 975 mg 07/10/23 11:40 07/10/23 11:43 Acetaminophen 325 Mg Tablet PO 07/10/23 11:41 975 mg ONCE ONE Administration Acetaminophen 650 mg 07/10/23 18:06 07/10/23 18:13 Acetaminophen 325 Mg Tablet PO 07/10/23 18:07 650 mg ONCE ONE Administration Acetaminophen 975 mg 07/11/23 00:54 07/11/23 01:00 Acetaminophen 325 Mg Tablet PO 07/11/23 00:55 975 mg ONCE ONE Administration Sodium Chloride 1,000 mls @ 999 mls/hr 07/10/23 21:30 07/10/23 22:06 Ns IV 07/10/23 22:30 999 mls/hr .Q1H1M PHYLICIA Administration Ceftriaxone Sodium 1 gm/ 50 mls @ 100 mls/hr 07/10/23 22:48 07/10/23 23:35 Sodium Chloride IV 07/10/23 23:17 100 mls/hr ONCE ONE Administration Iohexol 100 ml 07/10/23 22:42 07/10/23 22:42 Iohexol 350 Mg/Ml 100 Ml Infus..Btl IV 07/10/23 22:43 85 ml ONCE ONE Administration Ketorolac Tromethamine 15 mg 07/10/23 21:21 07/10/23 22:08 Ketorolac Tromethamine 15 Mg/Ml Vial IVPUSH 07/10/23 21:22 15 mg ONCE ONE Administration Ketorolac Tromethamine 15 mg 07/11/23 01:11 07/11/23 01:19 Ketorolac Tromethamine 15 Mg/Ml Vial IVPUSH 07/11/23 01:12 15 mg ONCE ONE Administration Medical Decision Making Medical Decision Making MDM Narrative: Patient has nonspecific pain to the abdomen to the back. Has generalized malaise weakness. Diffuse body ache. High fever at home. Also had some headache. Generalized malaise. History of gastric bypass. History of having total abdominal hysterectomy done 3 months ago. Patient's white count was elevated at 17. CRP and sed rate are elevated. This is more likely secondary to patient's pyelonephritis the patient's urine was grossly infected. Lactate is 1.2. There is no evidence for severe sepsis. IV fluids given. Monitor in the emergency department. Patient keeps spiking fevers of 103. Three very weak tired. Somewhat nauseous. After about 5 hours will admit patient for further monitoring. IV antibiotics. Patient's CT scan of the abdomen showed no evidence of obstruction, abscess, perforation. It does show signs consistent with having pyelo. There is no complication from the gastric bypass. There is also no gross abscess from the previous total abdominal hysterectomy done in April. Differential Diagnosis Differential Diagnoses: The differential diagnosis associated with the presentation includes Flu RSV COVID, UTI, pyelonephritis, temporal arteritis, obstruction, abscess, perforation, diverticulitis, appendicitis Admission/Observation Consideration of admission/observation: Escalation of care including admission/observation considered Consult Healthcare Provider Management of the patient was discussed with: Hospitalist Lab Data MDM Lab Attestation statement: I reviewed the patient's lab results. 07/10/23 11:52 07/10/23 11:52 Labs: Lab Results 07/10/23 07/10/23 07/10/23 Range/Units 11:52 22:04 23:19 WBC 17.0 H (4.8-10.8) X10*3/uL RBC 3.97 L (4.20-5.50) X10*6/uL Hgb 11.9 L (12.0-16.0) g/dl Hct 35.8 L (37.0-47.0) % MCV 90.2 (80.0-98.0) fL MCH 30.0 (27.0-33.0) pg MCHC 33.2 (31.0-35.0) g/dl RDW 14.2 (11.0-16.0) % Plt Count 268 (160-400) X10*3/uL MPV 9.5 (9.4-12.3) fL Immature Gran % (Auto) 0.5 H (0.0-0.4) % Neut % (Auto) 85.1 H (45-73) % Lymph % (Auto) 9.2 L (20-40) % [place] % (Auto) 5.0 (2-11) % Eos % (Auto) 0.0 (0-4) % Baso % (Auto) 0.2 (0-2) % Lymph # (Auto) 1.6 (1.2-4.9) X10*3/uL [place] # (Auto) 0.9 (0.1-1.2) X10*3/uL Eos # (Auto) 0.0 (0.0-0.4) X10*3/uL Baso # (Auto) 0.0 (0.0-0.2) X10*3/uL Abs Immat Gran (auto) 0.09 H (0.00-0.03) X10*3/uL Absolute Neuts (auto) 14.5 H (2.0-8.3) x10*3/uL Absolute Nucleated RBC 0.000 (0.0-0.012) X10*3/uL Nucleated RBC % (auto) 0.0 (0.0-0.2) /100WBC ESR 81 H (0-20) MM/HR Sodium 135 (135-145) mmol/L Potassium 4.1 (3.3-5.1) mmol/L Chloride 100 (96-108) mmol/L Carbon Dioxide 24 (22-29) mmol/L Anion Gap 15 (12-20) BUN 15 (9-16) mg/dL Creatinine 1.03 (0.5-1.4) mg/dL Estim Creat Clear Calc 69.3 Estimated GFR 55 Random Glucose 180 H (60-115) mg/dL Lactic Acid 1.2 (0.5-2.0) mmol/L Calcium 9.4 (8.4-10.2) mg/dL Magnesium 1.7 (1.6-2.6) mg/dL Total Bilirubin 0.9 (0.0-1.0) mg/dL AST 42 H (5-31) U/L ALT 42 H (0-31) U/L Alkaline Phosphatase 187 H (39-117) U/L C-Reactive Protein 19.18 H (< or = 0.50) mg/dL Total Protein 8.0 (6.5-8.0) g/dL Albumin 4.2 (3.5-5.0) g/dL Urine Color Dark Yellow Urine Appearance Turbid Urine pH 5.0 (5.0-9.0) Ur Specific [place] 1.025 (1.005-1.025) Urine Protein 100 (2+) H (Neg-Trace) mg/dL Urine Glucose (UA) Negative (Negative) mg/dL Urine Ketones Trace (Negative) mg/dL Urine Blood Large (3+) H (Negative) Urine Nitrite Negative (Negative) Ur Leukocyte Esterase Large (3+) H (Negative) Urine RBC 6-10 H (0-2) /HPF Urine WBC >50 H (0-5) /HPF Ur Squamous Epith Cells 6-10 (0-2) /HPF Urine Bacteria 4+ (None Seen) Hyaline Casts >20 (0-2) /LPF Influenza Type A (PCR) NEGATIVE (Negative) Influenza Type B (PCR) NEGATIVE (Negative) RSV RNA Qual (PCR) NEGATIVE (Negative) SARS-CoV-2 RNA (RT-PCR) NEGATIVE (Negative) Independent Historian And family External Record Review External record reviewed: Inpatient record Chronic Conditions Status post gastric bypass status post total abdominal hysterectomy Discharge Plan Discharge Clinical Impression: Pyelonephritis Patient Disposition: Admitted As Inpatient Prescriptions: No Action multivitamin Tablet 1 tab PO DAILY baclofen 10 mg Tablet 10 mg PO TID PRN (Reason: Spasms) omeprazole 20 mg Tablet,Delayed Release (Dr/Ec) 20 mg PO DAILY cholecalciferol (vitamin D3) [Vitamin D3] 50 mcg (2,000 unit) Tablet 50 mcg PO DAILY insulin glargine [Lantus Solostar U-100 Insulin] 100 unit/mL (3 mL) insulin pen 12 unit SUBCUT BEDTIME loratadine 10 mg tablet 10 mg PO DAILY PRN (Reason: Allergy Symptoms) magnesium oxide 400 mg magnesium tablet 400 mg PO DAILY Qty: 30 0RF fluticasone propionate 50 mcg/actuation spray,suspension 1 - 2 spray intranasal DAILY PRN (Reason: Allergy Symptoms) Xarelto 20 mg Tablet 20 mg PO DAILY@1700 Qty: 30 0RF insulin lispro [Humalog KwikPen Insulin] 100 unit/mL Insulin Pen 1 sliding scale dose SUBCUT QIDACHS Qty: 15 0RF Rx Instructions: Blood Sugar: <150 - 0 units 151-200 - 2 units 201-250 - 4 units 251-300 - 6 units 301-350 - 8 units >350 - 10 units (DME) pen needle, diabetic 32 gauge x 1/4 Needle Qty: 100 0RF Rx Instructions: Use four times a day or as directed. atorvastatin 80 mg tablet 80 mg PO BEDTIME acetaminophen 650 mg tablet extended release 650 mg PO Q8H PRN (Reason: fever) docusate sodium 100 mg capsule 100 mg PO BID PRN (Reason: Constipation) fluoxetine 20 mg capsule 40 mg PO DAILY metformin 500 mg tablet extended release 24 hr 2,000 mg PO BID trazodone 100 mg tablet 200 mg PO BEDTIME PRN (Reason: Insomnia) sennosides [senna] 8.6 mg tablet 17.2 mg PO BEDTIME PRN (Reason: constipation) diclofenac sodium 75 mg tablet,delayed release (DR/EC) 75 mg PO BID PRN (Reason: pain) Qty: 60 0RF amlodipine 5 mg tablet 5 mg PO DAILY lisinopril 40 mg tablet 40 mg PO DAILY
[2023-07-10 21:57] VITALS: BP 139/66; PULSE 103; RESP 16; TEMP 37.6; O2SAT 99
[2023-07-10] MEDS: 0.9 % Sodium Chloride 1,000 ML 999 ML IV (22:06)
[2023-07-10] MEDS: Ketorolac Tromethamine 15 MG/ML VIAL IVPUSH (22:08)
[2023-07-10 22:12] LABS: Appearance Urine Turbid; Color Urine Dark Yellow; Glucose Urine UA Negative (Negative); Leukocyte Esterase Urine Large (3+) (Negative); Nitrite Urine Negative (Negative); Specific Gravity - Urine 1.025 (1.005-1.025); UMIC TRIGGER UACC YES; Urine Blood Large (3+) (Negative); Urine Ketones Trace mg/dL (Negative); Urine Protein 100 (2+) mg/dL (Neg-Trace)
[2023-07-10 22:29] LABS: Bacteria Urine 4+ (None Seen); Hyaline Casts Urine >20 /LPF (0-2); UACC Culture Trigger YES; WBC Urine >50 /HPF (0-5)
[2023-07-10] MEDS: iohexoL 350 MG/ML 100 ML INFUS..BTL IV (22:42)
[2023-07-10 23:25] VITALS: BP 135/63; PULSE 87; RESP 18; TEMP 38.5; O2SAT 96
[2023-07-10] MEDS: cefTRIAXone sodium 1 GM in 0.9 % Sodium Chloride 50 ML IV (23:35)
[2023-07-10 23:36] LABS: Lactic Acid 1.2 mmol/L (0.5-2.0)
--- NOTE | 2023-07-10 23:51 | PC.NURSE ---
dr carr made aware of temp of 101.3 no new orders placed
[2023-07-11] VITALS (8 sets, daily range): BP systolic 135–156; BP diastolic 60–79; PULSE 92–110; RESP 16–18; TEMP 36.3–39.4; O2SAT 93–96
[2023-07-11] MEDS: Acetaminophen 325 MG TABLET 975 MG PO (01:00)
[2023-07-11] MEDS: Ketorolac Tromethamine 15 MG/ML VIAL IVPUSH (01:19)
--- NOTE | 2023-07-11 02:24 | PC.NURSE ---
this rn performed bedside med rec utilizing pt provided list. electrical technician instructor utilized. medication record list did not provide frequency of medications, only provided dose of medication. this rn performed mediation reconciliation to th best of their abilities due to pt not having complete medication information
[2023-07-11] MEDS: cefTRIAXone sodium 1 GM in 0.9 % Sodium Chloride 50 ML IV (02:38)
--- NOTE | 2023-07-11 02:38 | P.HPHOSP_ITS ---
History of Present Illness Date of Service: 07/11/23 Attending physician on admission: Demian Santana Chief Complaint: Fevers and chills x 2 days 57 year old morbidly obese (BMI 43.1) female with past medical history of type 2 diabetes mellitus, coronary artery disease, hypertension, hyperlipidemia and atrial fibrillation (on Xarelto) who presents to the emergency room from home complaining of persistent high fevers, chills and headaches. She also describes urinary symptoms including low abdominal pain, dysuria, urinary urgency and frequency. She denies any associated nausea or vomiting. Initial vital signs obtained in the emergency room were notable for a fever of 102.3 F and tachycardia with a heart rate of 118 bpm. Her blood pressure was normal at 133/74 mmHg. Lab work was notable for a leukocytosis of 17 k/mm3 and elevated CRP (19.18) and ESR (81). Urinalysis showed turbid urine with 3+ leukocyte esterase, > 50 WBC/HPF and 4+ bacteria. A CT scan of the abdomen and pelvis done showed left sided perinephric stranding raising concerns for pyelonephritis. She was started on IV ceftriaxone and admission requested for further care. Review of Systems 2 Review of Systems: Yes all other systems are reviewed and are negative [facility] Medical History Hospital discharge follow-up New onset atrial flutter Poor historian Encounter for screening colonoscopy Cervical cancer screening Women's annual routine gynecological examination Morbid obesity Bacterial vaginosis Vaginal itching Bladder pain Language barrier History of cardioversion Atrial flutter, paroxysmal On beta pat at home On anticoagulant therapy Atrial fibrillation and flutter Atrial fibrillation Diabetes Essential hypertension Abdominal pain Lab test negative for COVID-19 virus Arthritis Anemia GERD (gastroesophageal reflux disease) Hepatitis Depression Hypercholesteremia Diabetes HTN (hypertension) Functional capacity: independent ambulation Patient : No Pertinent family history: Reviewed with the patient and not pertinent to current admission Surgical History Hx of abdominal surgery Hx of dilation and curettage Hx of excision of mass Hx of section Hx of tubal ligation Hx of reduction mammoplasty Hx of cholecystectomy Hx of gastric bypass Bariatric surgery status Social History Household Members: Children Housing: Apartment Are you a primary child care lead teacher to a significant other at home: No Do you presently have visiting nurse or other home services: No Alcohol intake: never Comment: history-long ago fall when having issues with knees Patient Tobacco Use Status: Never used Tobacco e-Cigarette/Vaping Use: Never Used Advance Directives: No Advance Directives Information Provided: No Advance Directives Date on File: 11/09/21 Patient : No service: No Current occupational status: disabled Current occupation: rt handed Meds Allergies Allergy/AdvReac Type Severity Reaction Status Date / Time No Known Allergies Allergy Verified 06/23/23 10:18 [No Known Allergies*] Home Medications Medication Instructions Recorded Confirmed Last Taken Type baclofen 10 mg tablet 10 mg PO TID PRN Spasms 04/29/20 07/11/23 Unknown History cholecalciferol (vitamin D3) 50 50 mcg PO DAILY 04/29/20 07/11/23 11/06/21 History mcg (2,000 unit) tablet (Vitamin D3) multivitamin 1 tab PO DAILY 04/29/20 07/11/23 11/06/21 History omeprazole 20 mg tablet,delayed 20 mg PO DAILY 04/29/20 07/11/23 11/06/21 History release fluticasone propionate 50 1 - 2 spray intranasal DAILY PRN 10/22/21 03/13/23 Unknown History mcg/actuation nasal Allergy Symptoms spray,suspension atorvastatin 80 mg tablet 80 mg PO BEDTIME 10/27/21 07/11/23 11/05/21 History insulin glargine 100 unit/mL (3 12 unit subcut BEDTIME 11/06/21 07/11/23 11/05/21 History mL) subcutaneous pen (Lantus Solostar U-100 Insulin) acetaminophen 650 mg 650 mg PO Q8H PRN fever 01/04/22 03/13/23 Unknown History tablet,extended release docusate sodium 100 mg capsule 100 mg PO BID PRN Constipation 01/04/22 07/11/23 Unknown History fluoxetine 20 mg capsule 40 mg PO DAILY 01/04/22 07/11/23 Unknown History loratadine 10 mg tablet 10 mg PO DAILY PRN Allergy Symptoms 01/04/22 07/11/23 Unknown History metformin 500 mg tablet,extended 2,000 mg PO BID 01/04/22 07/11/23 Unknown History release 24 hr sennosides 8.6 mg tablet (senna) 17.2 mg PO BEDTIME PRN constipation 03/08/22 07/11/23 Unknown History amlodipine 5 mg tablet 5 mg PO DAILY 03/13/23 07/11/23 Unknown History lisinopril 40 mg tablet 40 mg PO DAILY 03/13/23 07/11/23 Unknown History trazodone 50 mg tablet 50 - 100 mg PO BEDTIME PRN insomnia 07/11/23 07/11/23 Unknown History Physical Exam 2 Vital Signs and Narrative: Vital Signs: Last Vital Signs Temp 103.0 F H 07/11/23 00:53 Pulse 87 07/10/23 23:25 Resp 18 07/10/23 23:25 BP 135/63 07/10/23 23:25 Pulse Ox 96 07/10/23 23:25 O2 Del Method Room Air 07/10/23 23:25 BMI result Body Mass Index 43.1 General: Obese female in bed. Awake, alert and oriented x 4. No apparent distress Eyes: No pallor or jaundice. PERRLA, EOMI HENT: Moist oral mucus membranes. No oropharyngeal lesions. Neck: Supple. No cervical adenopathy. No JVD Cardiovascular: Regular rate and rhythm. Normal heart sounds. No murmurs, rubs or gallops. No JVD. No peripheral edema. Respiratory: Normal respiratory effort with no accessory muscle use. CTAB. Gastrointestinal: Abdomen is soft, non-tender, non-distended. NABS. No hepatosplenomegaly Extremities: No edema. No calf tenderness. Good peripheral pulses Skin: Healed surgical scars on anterior abdominal wall and Warm/Dry. No rashes. No mottling. Capillary refill is < 2 seconds Neurological: AAOx4. Intact speech & cognition. Normal gait & balance. CN II - XII grossly intact but not individually tested. No motor or sensory deficits Hematologic: No bleeding. No ecchymosis. No swollen or tender lymph nodes. Psychiatric: Cooperative. Appropriate mood and affect. Results Labs 07/10/23 11:52 07/10/23 11:52 Labs: Laboratory Results - last 24 hr 07/10/23 07/10/23 07/10/23 11:52 22:04 23:19 MCV 90.2 MCH 30.0 MCHC 33.2 RDW 14.2 Plt Count 268 MPV 9.5 Immature Gran % (Auto) 0.5 H Neut % (Auto) 85.1 H Lymph % (Auto) 9.2 L [place] % (Auto) 5.0 Eos % (Auto) 0.0 Baso % (Auto) 0.2 Lymph # (Auto) 1.6 [place] # (Auto) 0.9 Eos # (Auto) 0.0 Baso # (Auto) 0.0 Abs Immat Gran (auto) 0.09 H Absolute Neuts (auto) 14.5 H Absolute Nucleated RBC 0.000 Nucleated RBC % (auto) 0.0 ESR 81 H Anion Gap 15 Estim Creat Clear Calc 69.3 Estimated GFR 55 Random Glucose 180 H Lactic Acid 1.2 Calcium 9.4 Magnesium 1.7 Total Bilirubin 0.9 AST 42 H ALT 42 H Alkaline Phosphatase 187 H C-Reactive Protein 19.18 H Total Protein 8.0 Albumin 4.2 Urine Color Dark Yellow Urine Appearance Turbid Urine pH 5.0 Ur Specific Norris 1.025 Urine Protein 100 (2+) H Urine Glucose (UA) Negative Urine Ketones Trace Urine Blood Large (3+) H Urine Nitrite Negative Ur Leukocyte Esterase Large (3+) H Urine RBC 6-10 H Urine WBC >50 H Ur Squamous Epith Cells 6-10 Urine Bacteria 4+ Hyaline Casts >20 Influenza Type A (PCR) NEGATIVE Influenza Type B (PCR) NEGATIVE RSV RNA Qual (PCR) NEGATIVE SARS-CoV-2 RNA (RT-PCR) NEGATIVE Imaging Radiologist's Impressions: Impressions Abdomen/Pelvis CT 07/10/23 22:49 IMPRESSION: 1. Subtle patchy diminished cortical enhancement at the left upper renal pole with surrounding perinephric stranding which raise the possibility of pyelonephritis. No evidence of obstructive uropathy. 2. 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 The lack of growth over time suggests a benign lesion. 3. A 3.3 x 1.5 x 4.6 cm complex collection in the ventral abdominal wall in the epigastric region, likely corresponding to the remnants of a postoperative hematoma or scar tissue. 4. Mild colonic diverticulosis without evidence of acute diverticulitis. 5. Status post bariatric gastric sleeve procedure. No acute abnormalities are identified in the left upper quadrant. 6. Unchanged focal renal cortical scarring at the lower pole of the right kidney. 7. New appendicoliths at the neck of the appendix without evidence of acute appendicitis. Assessment and Plan (1) Sepsis: Qualifiers: Sepsis acute organ dysfunction status: without acute organ dysfunction Sepsis type: sepsis due to unspecified organism Qualified Code(s): A41.9 - Sepsis, unspecified organism Status: Acute (2) Pyelonephritis: Status: Acute Plan 57 year old morbidly obese (BMI 43.1) female with past medical history of type 2 diabetes mellitus, coronary artery disease, hypertension, hyperlipidemia and atrial fibrillation (on Xarelto) here with: 1. Pyelonephritis - patient with left flank pain with associated fevers and chills - urinalysis with findings concerning for UTI - admit and continue with IV Ceftriaxone 2. Sepsis - she meets criteria for sepsis with fever, tachycardia and leucocytosis in setting of pyelonephritis - admit and continue with IV Ceftriaxone 3. Type 2 diabetes mellitus - resume Insulin Lantus - hold Metformin x 48 hours following contrast enhanced CT scan - closely monitor blood sugars 4. Atrial fibrillation - resume Xarelto 5. Hypertension - BP well controlled at this time - will resume outpatient medications - Amlodipine and Lisinopril 6. Hyperlipidemia - resume Atorvastatin DVT: SC Lovenox CODE STATUS: Full code Admission for at least 2 midnights for management of sepsis due to pyelonephritis Total time managing care of this patient today: 75 minutes. Quality Stroke Does the patient have a stroke diagnosis?: No VTE Prior VTE?: No VTE Risk Level:: Medical - moderate - high VTE Device Contraindication: N/A - Device Ordered VTE Drug Contraindication: N/A - Med Ordered
[2023-07-11] MEDS: 0.9 % Sodium Chloride 1,000 ML 125 ML IVCONT ×3 (02:40→19:57)
[2023-07-11 06:45] LABS: Anion Gap 15 (12-20); Blood Urea Nitrogen 23 mg/dL (9-16); Calcium 8.9 mg/dL (8.4-10.2); Carbon Dioxide 23 mmol/L (22-29); Chloride 105 mmol/L (96-108); Creatinine Clr Calc Pharmacy 56.6; Estimated Glomerular Filt Rate 44; Glucose Random 183 mg/dL (60-115); Potassium 4.2 mmol/L (3.3-5.1); Sodium 139 mmol/L (135-145)
[2023-07-11 06:48] LABS: Basophils Percent Auto 0.3 % (0-2); Hematocrit 33.9 % (37.0-47.0); Hemoglobin 11.3 g/dl (12.0-16.0); Imm Gran Abs Auto 0.06 X10*3/uL (0.00-0.03); Imm Gran Pct Auto 0.4 % (0.0-0.4); Lymphocytes Absolute Auto 0.8 X10*3/uL (1.2-4.9); Lymphocytes Percent Auto 5.2 % (20-40); MANUAL DIFF FLAG SCAN; Mean Corpuscular HGB Conc 33.3 g/dl (31.0-35.0); Mean Corpuscular Hemoglobin 30.5 pg (27.0-33.0); Mean Corpuscular Volume 91.6 fL (80.0-98.0); Monocytes Absolute Auto 0.6 X10*3/uL (0.1-1.2); Monocytes Percent Auto 3.7 % (2-11); Neutrophils Absolute Auto 13.9 x10*3/uL (2.0-8.3); Neutrophils Percent Auto 90.4 % (45-73); Red Cell Distribution Width 14.3 % (11.0-16.0); SCAN SMEAR FLAG 1; White Blood Count 15.4 X10*3/uL (4.8-10.8)
[2023-07-11 07:19] LABS: SLIDE REVIEW VERIFIED
--- NOTE | 2023-07-11 08:07 | PHA.MEDREC ---
Pharmacy Consult ? Medication Reconciliation Pharmacy has completed the medication reconciliation. Utilized director appointment services. Clarified med rec that was performed by nurse overnight (Chaya).
[2023-07-11] MEDS: oxyCODONE HCl Immed Release 5 MG TABLET PO ×2 (08:16→19:58)
[2023-07-11] MEDS: 0.9 % Sodium Chloride Flush 3 ML SYRINGE IVFLUSH (08:17)
--- NOTE | 2023-07-11 12:16 | MHC.CM.PN ---
Attempted to meet with patient in regards to discharge planning. Patient currently sleeping. No family present. Will attempt to meet again. Continue to monitor for d/c needs.
[2023-07-11] MEDS: Acetaminophen 325 MG TABLET 650 MG PO (15:22)
--- NOTE | 2023-07-11 17:35 | PM.EVENT ---
Event Note Date of Service: 07/11/23 Event Note: Patient seen and examined by hospital seen this morning. Seen and examined again. Physical exam: Unchanged Assessment plan: Coordinated in H&P note, patient has sepsis sec to uti/ Gram-negative bacteremia, continue IV antibiotics Time Spent With Patient Time: Total time managing care of this patient today ____ minutes.
[2023-07-11] MEDS: cefTRIAXone sodium 2 GM in 0.9 % Sodium Chloride 50 ML IV (20:02)
[2023-07-11 20:07] LABS: Glucose, Whole Blood 222 mg/dL (60-115)
[2023-07-11] MEDS: Insulin Lispro 100 UNIT/ML 3 ML VIAL SUBCUT (20:07)
[2023-07-12] MEDS: 0.9 % Sodium Chloride Flush 3 ML SYRINGE IVFLUSH ×3 (00:15→23:27)
[2023-07-12] MEDS: Acetaminophen 325 MG TABLET 650 MG PO ×3 (00:15→15:59)
[2023-07-12] MEDS: 0.9 % Sodium Chloride 1,000 ML 125 ML IVCONT (04:14)
[2023-07-12 06:49] VITALS: BP 148/66; PULSE 86; RESP 16; TEMP 36.8; O2SAT 97
[2023-07-12 07:06] LABS: Glucose, Whole Blood 168 mg/dL (60-115)
[2023-07-12] MEDS: Insulin Lispro 100 UNIT/ML 3 ML VIAL SUBCUT ×4 (07:44→20:43)
[2023-07-12 08:18] LABS: Alanine Aminotransferase 48 U/L (0-31); Albumin Level 3.9 g/dL (3.5-5.0); Alkaline Phosphatase 173 U/L (39-117); Aspartate Amino Transferase 43 U/L (5-31); Bilirubin Direct 0.6 mg/dL (0.0-0.5); Total Protein 7.5 g/dL (6.5-8.0)
--- NOTE | 2023-07-12 09:21 | MHC.CLN ---
NUTRITION CONSULT FOR WEIGHT LOSS. REVIEW OF WEIGHT HX SHOWS -3.4% WEIGHT LOSS X ONE MONTH. NO SIGNIFICANT WEIGHT CHANGE X ONE YEAR. NO ADDITIONAL NUTRITION INTERVENTIONS AT THIS TIME.
--- NOTE | 2023-07-12 09:51 | MHC.CM.PN ---
CM met with patient at bedside, ui software engineer assisting. IMM delivered. Patient is from home with daughter/MANAGER MANUFACTURING/HCP Clarisa [phone]. Patient ambulates with a cane PRN and daughter assists w/ ADL's. No other services or equipment. Patient states she might be interested in a walker. PCP: Cynthia Carson, HCP: Patient completed updated HCP naming agents: 1) daughter Clarisa Wall and 2) friend Lori Anderson [phone] DP: goal is home, resume MANAGER MANUFACTURING services, daughter to transport. CM will continue to follow for DC needs.
[2023-07-12 11:07] LABS: Glucose, Whole Blood 218 mg/dL (60-115)
[2023-07-12] MEDS: amLODIPine Besylate 5 MG TABLET PO (13:57)
--- NOTE | 2023-07-12 14:20 | HO.PM.IMPN ---
Subjective Subjective Date of Service: 07/12/23 Interval History: dizziness ,generlaised weak Review of Systems no fevers has dysuria Physical Exam Vital Signs: Vital Signs: Last Vital Signs Temp 98.2 F 07/12/23 06:49 Pulse 86 07/12/23 06:49 Resp 16 07/12/23 06:49 BP 148/66 H 07/12/23 06:49 Pulse Ox 97 07/12/23 06:49 O2 Del Method Room Air 07/12/23 06:49 BMI result Body Mass Index 43.1 Appearance: Alert.? Oriented X3.generlaised weak cvs: rrr, [id number] , no murmur res: clear to auscultation ,no rhonchii or wheezing abd: no rebound or guarding ,nt, bs present. : left cva tenderness. ext pulses present , no cyanosis. neuro: axo3 , nonfocal. Objective Data Active Medications Acetaminophen (Acetaminophen 325 Mg Tablet) 650 mg PO Q6H PRN PRN Reason: Fever >100.4 Last Admin: 07/12/23 07:42 Dose: 650 mg Documented By: NAZIA Al Hydroxide/Mg Hydroxide (Magnesium Hydrox/Alum Hydrox 30 Ml Oral.Susp) 30 ml PO Q4H PRN PRN Reason: Heartburn/Nausea Amlodipine Besylate (Amlodipine Besylate 5 Mg Tablet) 5 mg PO DAILY [facility]; Protocol Last Admin: 07/12/23 13:57 Dose: 5 mg Documented By: ELVIS-KLEJORDAN Atorvastatin Calcium (Atorvastatin Calcium 80 Mg Tablet) 80 mg PO BEDTIME PHYLICIA Baclofen (Baclofen 10 Mg Tablet) 10 mg PO TID PRN PRN Reason: Pain, Mild (Pain Scale 1-3) Dextrose (Dextrose 50 % 25 Gm/50 Ml Syringe) 25 gm IVPUSH Q15M PRN; Protocol PRN Reason: per Hypoglycemia Standing Ord. Fluoxetine HCl (Fluoxetine Hcl 20 Mg Capsule) 40 mg PO DAILY [facility] Glucose (Glucose Gel 15 Gm Gel..Gram.) 15 gm PO Q15M PRN; Protocol PRN Reason: per Hypoglycemia Standing Ord. Ceftriaxone Sodium 2 gm/ (Sodium Chloride) 50 mls @ 100 mls/hr IV Q24H [facility] Last Infusion: 07/11/23 20:58 Dose: Infused Documented By: LUIS Insulin Glargine (Insulin Glargine,Hum.Rec.Anlog 100 Unit/Ml 10 Ml Vial) 8 unit SUBCUT DAILY [facility] Insulin Human Lispro (Insulin Lispro 100 Unit/Ml 3 Ml Vial) 0 unit SUBCUT QIDACHS [facility]; Protocol Last Admin: 07/12/23 12:08 Dose: 4 unit Documented By: NAZIA Loratadine (Loratadine 10 Mg Tablet) 10 mg PO DAILY PRN PRN Reason: Allergic Symptoms Melatonin (Melatonin 3 Mg Tablet) 6 mg PO BEDTIME PRN PRN Reason: Insomnia Morphine Sulfate (Morphine Sulfate 4 Mg/Ml Cartridge) 2 mg IVPUSH Q6H PRN; Protocol PRN Reason: Pain, Severe (Pain Scale 7-10) Omeprazole (Omeprazole 20 Mg Capsule.Dr) 20 mg PO DAILY@0630 [facility] Ondansetron HCl (Ondansetron Hcl 4 Mg/2 Ml Vial) 4 mg IVPUSH Q8H PRN PRN Reason: Nausea and Vomiting Oxycodone HCl (Oxycodone Hcl Immed Release 5 Mg Tablet) 5 mg PO Q6H PRN PRN Reason: Pain, Moderate(Pain Scale 4-6) Last Admin: 07/11/23 19:58 Dose: 5 mg Documented By: LUIS Rivaroxaban (Rivaroxaban 20 Mg Tablet) 20 mg PO DAILY@1700 [facility] Senna (Sennosides 8.6 Mg Tablet) 17.2 mg PO BEDTIME PRN PRN Reason: Constipation Sodium Chloride (0.9 % Sodium Chloride Flush 3 Ml Syringe) [facility] Last Admin: 07/12/23 08:32 Dose: Not Given Documented By: NAZIA Non-Admin Reason: IV Running Trazodone HCl (Trazodone Hcl 100 Mg Tablet) 100 mg PO BEDTIME PRN PRN Reason: sleep Labs 07/11/23 05:53 07/11/23 05:53 Labs: Laboratory Results - last 24 hr 07/11/23 07/11/23 07/12/23 05:53 19:54 06:59 POC Glucose 222 H 168 H Total Bilirubin 1.0 Direct Bilirubin 0.6 H AST 43 H ALT 48 H Alkaline Phosphatase 173 H Total Protein 7.5 Albumin 3.9 07/12/23 11:02 POC Glucose 218 H Total Bilirubin Direct Bilirubin AST ALT Alkaline Phosphatase Total Protein Albumin Microbiology Microbiology Results: Microbiology 07/10/23 23:20 Blood Culture - Preliminary Blood - Venous Gram negative mayr 07/10/23 23:19 Blood Culture - Preliminary Blood - Venous Gram negative mary 07/10/23 22:30 Urine Culture - Preliminary Urine clean catch - Urine deleon top Escherichia coli Assessment and Plan (1) Sepsis: Status: Acute (2) Pyelonephritis: Status: Acute Assessment and Plan: 57 year old morbidly obese (BMI 43.1) female with past medical history of type 2 diabetes mellitus, coronary artery disease, hypertension, hyperlipidemia and atrial fibrillation (on Xarelto) here with: Sepsis sec Pyelonephritis lactic acid normal leucocytosis improving,blood culture -gram neg mary. - patient with left flank pain with associated fevers and chills - urinalysis with findings concerning for UTI continue with IV Ceftriaxone Type 2 diabetes mellitus with hyperglycemia added Hba1c levels resume Insulin Lantus,hold Metformin x 48 hours following contrast enhanced CT scan fs with adjusted sliding scale. closely monitor blood sugars Atrial fibrillation- resume Xarelto . Hypertension- BP well controlled at this time. dizziness improving this afternoon start outpatient medications - Amlodipine and hold Lisinopril for now. Hyperlipidemia- resume Atorvastatin Dvt : sc Lovenox ongoing hospitlisation need: management of sepsis due to pyelonephritis,bacteremia,still symptomatic -need iv antibiotics ,blood culture - organism and sentivities pending, moniter fs with dm/hyperglycemia . Quality Stroke Does the patient have a stroke diagnosis?: No VTE Prior VTE?: No VTE Risk Level:: Medical - moderate - high VTE Device Contraindication: N/A - Device Ordered VTE Drug Contraindication: N/A - Med Ordered
[2023-07-12 15:09] VITALS: BP 162/77; PULSE 89; RESP 17; TEMP 36.7; O2SAT 99
[2023-07-12 16:19] LABS: Glucose, Whole Blood 181 mg/dL (60-115)
[2023-07-12] MEDS: Rivaroxaban 20 MG TABLET PO (16:40)
[2023-07-12] MEDS: Sennosides 8.6 MG TABLET 17.2 MG PO (17:01)
[2023-07-12 20:20] LABS: Glucose, Whole Blood 228 mg/dL (60-115)
[2023-07-12] MEDS: cefTRIAXone sodium 2 GM in 0.9 % Sodium Chloride 50 ML IV (20:42)
[2023-07-12] MEDS: Atorvastatin Calcium 80 MG TABLET PO (20:42)
[2023-07-12] MEDS: oxyCODONE HCl Immed Release 5 MG TABLET PO (20:54)
[2023-07-12 23:23] VITALS: BP 162/57; PULSE 96; RESP 16; TEMP 36.9; O2SAT 97
[2023-07-13] MEDS: Acetaminophen 325 MG TABLET 650 MG PO ×2 (02:19→20:06)
[2023-07-13] MEDS: Omeprazole 20 MG CAPSULE.DR PO (06:05)
[2023-07-13 07:12] LABS: Estimated Average Glucose 154 mg/dL
[2023-07-13 07:39] VITALS: BP 143/75; PULSE 80; RESP 18; TEMP 36.7; O2SAT 98
[2023-07-13 07:58] LABS: Glucose, Whole Blood 178 mg/dL (60-115)
[2023-07-13] MEDS: amLODIPine Besylate 10 MG TABLET PO (08:13)
[2023-07-13] MEDS: Insulin Glargine,Hum.rec.anlog 100 UNIT/ML 10 ML VIAL 8 UNIT SUBCUT (08:13)
[2023-07-13] MEDS: FLUoxetine HCl 20 MG CAPSULE 40 MG PO (08:13)
[2023-07-13] MEDS: Insulin Lispro 100 UNIT/ML 3 ML VIAL SUBCUT ×4 (08:14→21:12)
[2023-07-13] MEDS: 0.9 % Sodium Chloride Flush 3 ML SYRINGE IVFLUSH ×2 (08:14→22:58)
[2023-07-13 11:39] LABS: Glucose, Whole Blood 233 mg/dL (60-115)
--- NOTE | 2023-07-13 12:02 | P.PNIM_ITS ---
Subjective Subjective Date of Service: 07/13/23 Interval History: E coli bacteremia /uti Review of Systems seems improvin no fever or chills Physical Exam 2 Vital Signs: Vital Signs: Last Vital Signs Temp 98.1 F 07/13/23 07:39 Pulse 80 07/13/23 07:39 Resp 18 07/13/23 07:39 BP 143/75 H 07/13/23 07:39 Pulse Ox 98 07/13/23 07:39 O2 Del Method Room Air 07/13/23 07:39 BMI result Body Mass Index 43.1 Appearance: Alert.? Oriented X3.generlaised weak cvs: rrr, [id number] . res: clear to auscultation ,no rhonchii or wheezing abd: no rebound or guarding ,nt, bs present. : left cva tenderness. ext pulses present , no cyanosis. neuro: axo3 , nonfocal. Objective Data Active Medications Acetaminophen (Acetaminophen 325 Mg Tablet) 650 mg PO Q6H PRN PRN Reason: Fever >100.4 Last Admin: 07/13/23 02:19 Dose: 650 mg Documented By: RISSA Al Hydroxide/Mg Hydroxide (Magnesium Hydrox/Alum Hydrox 30 Ml Oral.Susp) 30 ml PO Q4H PRN PRN Reason: Heartburn/Nausea Amlodipine Besylate (Amlodipine Besylate 10 Mg Tablet) 10 mg PO DAILY [facility]; Protocol Last Admin: 07/13/23 08:13 Dose: 10 mg Documented By: MISA Atorvastatin Calcium (Atorvastatin Calcium 80 Mg Tablet) 80 mg PO BEDTIME [facility] Last Admin: 07/12/23 20:42 Dose: 80 mg Documented By: LUIS Baclofen (Baclofen 10 Mg Tablet) 10 mg PO TID PRN PRN Reason: Pain, Mild (Pain Scale 1-3) Dextrose (Dextrose 50 % 25 Gm/50 Ml Syringe) 25 gm IVPUSH Q15M PRN; Protocol PRN Reason: per Hypoglycemia Standing Ord. Fluoxetine HCl (Fluoxetine Hcl 20 Mg Capsule) 40 mg PO DAILY [facility] Last Admin: 07/13/23 08:13 Dose: 40 mg Documented By: MISA Glucose (Glucose Gel 15 Gm Gel..Gram.) 15 gm PO Q15M PRN; Protocol PRN Reason: per Hypoglycemia Standing Ord. Meropenem 1 gm/ Sodium (Chloride) 100 mls @ 200 mls/hr IV Q8H [facility] Last Infusion: 07/13/23 08:54 Dose: Infused Documented By: MISA Insulin Glargine (Insulin Glargine,Hum.Rec.Anlog 100 Unit/Ml 10 Ml Vial) 8 unit SUBCUT DAILY [facility] Last Admin: 07/13/23 08:13 Dose: 8 unit Documented By: MISA Insulin Human Lispro (Insulin Lispro 100 Unit/Ml 3 Ml Vial) 0 unit SUBCUT QIDACHS [facility]; Protocol Last Admin: 07/13/23 11:50 Dose: 4 unit Documented By: MISA Loratadine (Loratadine 10 Mg Tablet) 10 mg PO DAILY PRN PRN Reason: Allergic Symptoms Melatonin (Melatonin 3 Mg Tablet) 6 mg PO BEDTIME PRN PRN Reason: Insomnia Morphine Sulfate (Morphine Sulfate 4 Mg/Ml Cartridge) 2 mg IVPUSH Q6H PRN; Protocol PRN Reason: Pain, Severe (Pain Scale 7-10) Omeprazole (Omeprazole 20 Mg Capsule.) 20 mg PO DAILY@0630 [facility] Last Admin: 07/13/23 06:05 Dose: 20 mg Documented By: RISSA Ondansetron HCl (Ondansetron Hcl 4 Mg/2 Ml Vial) 4 mg IVPUSH Q8H PRN PRN Reason: Nausea and Vomiting Oxycodone HCl (Oxycodone Hcl Immed Release 5 Mg Tablet) 5 mg PO Q6H PRN PRN Reason: Pain, Moderate(Pain Scale 4-6) Last Admin: 07/12/23 20:54 Dose: 5 mg Documented By: LUIS Rivaroxaban (Rivaroxaban 20 Mg Tablet) 20 mg PO DAILY@1700 [facility] Last Admin: 07/12/23 16:40 Dose: 20 mg Documented By: LILIA Senna (Sennosides 8.6 Mg Tablet) 17.2 mg PO BEDTIME PRN PRN Reason: Constipation Last Admin: 07/12/23 17:01 Dose: 17.2 mg Documented By: LILIA Sodium Chloride (0.9 % Sodium Chloride Flush 3 Ml Syringe) 3 ml IVFLUSH QSHIFT [facility] Last Admin: 07/13/23 08:14 Dose: 3 ml Documented By: MISA Trazodone HCl (Trazodone Hcl 100 Mg Tablet) 100 mg PO BEDTIME PRN PRN Reason: sleep Labs 07/11/23 05:53 07/11/23 05:53 Labs: Laboratory Results - last 24 hr 07/12/23 07/12/23 07/13/23 16:12 20:16 06:01 POC Glucose 181 H 228 H Estimat Average Glucose 154 Hemoglobin A1c % 7.0 H 07/13/23 07/13/23 07:56 11:29 POC Glucose 178 H 233 H Estimat Average Glucose Hemoglobin A1c % Microbiology Microbiology Results: Microbiology 07/10/23 23:20 Blood Culture - Final Blood - Venous Escherichia coli 07/10/23 23:19 Blood Culture - Final Blood - Venous Escherichia coli 07/10/23 22:30 Urine Culture - Final Urine clean catch - Urine deleon top Escherichia coli Assessment and Plan (1) Sepsis: Status: Acute (2) Pyelonephritis: Status: Acute Plan Day-3: 57 year old morbidly obese (BMI 43.1) female with past medical history of type 2 diabetes mellitus, coronary artery disease, hypertension, hyperlipidemia and atrial fibrillation (on Xarelto) here with: Sepsis sec Pyelonephritis lactic acid normal leucocytosis improving,blood culture -ecoli-esbl patient with left flank pain with associated fevers and chills urinalysis with findings concerning for UTI-antibiotics switched from ceftriaxone to meropenem ID eval,also might need midline for half-way antibiotics. Type 2 diabetes mellitus with hyperglycemia Hba1c levels 7. resume Insulin Lantus,Metformin,fs with adjusted sliding scale. closely monitor blood sugars Atrial fibrillation- resume Xarelto . Hypertension- BP well controlled at this time. dizziness improving this afternoon start outpatient medications - Amlodipine and hold Lisinopril for now. Hyperlipidemia- resume Atorvastatin Dvt : sc Lovenox ongoing hospitlisation need: management of sepsis due to pyelonephritis,bacteremia esbl ,still symptomatic -need iv antibiotics ,blood culture - organism and sentivities pending, moniter fs with dm/hyperglycemia ,need expert consultation. Quality Stroke Does the patient have a stroke diagnosis?: No VTE Prior VTE?: No VTE Risk Level:: Medical - moderate - high VTE Device Contraindication: N/A - Device Ordered VTE Drug Contraindication: N/A - Med Ordered
--- NOTE | 2023-07-13 17:02 | HO.MIDLINE ---
Midline Insertion MIDLINE INSERTION Diagnosis: UTI Indication: 4 wks abt Pertinent Labs: reviewed Technique: Using sterile technique including cap and mask, glove and drape, the right arm was prepped and draped in the usual sterile fashion of full barrier technique with CHG. Using ultrasound guidance, right cephalic vein access was obtained . 20g x 8cm non PASV PowerGlide ST midline catheter was positioned. The procedure was performed in room 272. Ultrasound was used to document vein patency and for needle entry. A formal ultrasound picture was recorded. V[facility] Medical Claims Specialist has released the line for use and it is currently dressed with a StatLock, Tegaderm, and CHG disc. Verification has been performed for blood return and line patency. Arm Circumference: 43cm Equipment: BARD PowerGlide ST midline Catheter Catheter Type: 20G x 8 CM nonPASV catheter Lot #: [id number]
[2023-07-13] MEDS: Rivaroxaban 20 MG TABLET PO (17:15)
[2023-07-13 17:23] LABS: Glucose, Whole Blood 152 mg/dL (60-115)
[2023-07-13 17:28] VITALS: BP 145/80; PULSE 90; RESP 18; TEMP 37; O2SAT 99
[2023-07-13 19:46] VITALS: BP 153/71; PULSE 75; RESP 18; TEMP 36.6; O2SAT 99
[2023-07-13] MEDS: Atorvastatin Calcium 80 MG TABLET PO (20:06)
[2023-07-13] MEDS: metFORMIN HCl ER 500 MG TAB.ER.24H 1000 MG PO (20:06)
[2023-07-13 20:24] LABS: Glucose, Whole Blood 250 mg/dL (60-115)
[2023-07-14] VITALS: BP 128/65; PULSE 58; RESP 18; TEMP 36.3; O2SAT 97
[2023-07-14] MEDS: Acetaminophen 325 MG TABLET 650 MG PO (04:01)
[2023-07-14] MEDS: Omeprazole 20 MG CAPSULE.DR PO (05:41)
[2023-07-14] MEDS: 0.9 % Sodium Chloride Flush 3 ML SYRINGE IVFLUSH ×2 (07:04→12:20)
[2023-07-14 07:40] VITALS: BP 149/72; PULSE 62; RESP 18; TEMP 37.1; O2SAT 95
[2023-07-14 07:46] LABS: Glucose, Whole Blood 166 mg/dL (60-115)
[2023-07-14] MEDS: Heparin Sodium,Porcine Flush 50 UNITS, 0.9 % Sodium Chloride Flush 5 ML IVFLUSH ×2 (07:50→12:20)
[2023-07-14] MEDS: Insulin Lispro 100 UNIT/ML 3 ML VIAL SUBCUT (07:52)
[2023-07-14] MEDS: Insulin Glargine,Hum.rec.anlog 100 UNIT/ML 10 ML VIAL 8 UNIT SUBCUT (07:52)
[2023-07-14] MEDS: FLUoxetine HCl 20 MG CAPSULE 40 MG PO (07:53)
[2023-07-14] MEDS: amLODIPine Besylate 10 MG TABLET PO (07:53)
[2023-07-14] MEDS: metFORMIN HCl ER 500 MG TAB.ER.24H 1000 MG PO (07:53)
[2023-07-14] MEDS: Multivitamin TABLET 1 TAB PO (07:53)
[2023-07-14 11:19] LABS: Glucose, Whole Blood 145 mg/dL (60-115)
--- NOTE | 2023-07-14 11:32 | MHC.CM.PN ---
EMR reviewed. Per MD rounds patient is medically cleared for dc home w/ [facility] [employer]. Has midline in place for LT abx. [facility] will provide abx and will teach patient and dtr prior to dc today. [facility] has also accepted. Daughter will transport home. IMM delivered.
[2023-07-14] MEDS: Ertapenem Sodium 1 GM in 0.9 % Sodium Chloride 50 ML IV (11:47)
--- NOTE | 2023-07-14 12:00 | PC.NURSE ---
tolerating new IV ABT
--- NOTE | 2023-07-14 13:03 | PM.DS ---
DS: Providers Provider Date of Service: 07/14/23 Date of admission: 07/11/23 01:39 Date of discharge: 07/14/23 Primary care physician: Cynthia Carson DO Consults: 07/13/23 07:30 Consult to Infectious Diseases Routine Consulting Provider: Racheal Huynh Reason for consultation: esbl bacteremia/uti Has provider been notified: No Attending physician on discharge: Jessica Sandra Discharging clinician: Jessica Sandra DS: Diagnosis Discharge Diagnosis (1) Sepsis: Status: Acute (2) Pyelonephritis: Status: Acute DS: Summary Hospital Course Hospital Course: 57 year old morbidly obese (BMI 43.1) female with past medical history of type 2 diabetes mellitus, coronary artery disease, hypertension, hyperlipidemia and atrial fibrillation (on Xarelto) who presents to the emergency room from home complaining of persistent high fevers, chills and headaches. She also describes urinary symptoms including low abdominal pain, dysuria, urinary urgency and frequency. She denies any associated nausea or vomiting. Initial vital signs obtained in the emergency room were notable for a fever of 102.3 F and tachycardia with a heart rate of 118 bpm. Her blood pressure was normal at 133/74 mmHg. Lab work was notable for a leukocytosis of 17 k/mm3 and elevated CRP (19.18) and ESR (81). Urinalysis showed turbid urine with 3+ leukocyte esterase, > 50 WBC/HPF and 4+ bacteria. A CT scan of the abdomen and pelvis done showed left sided perinephric stranding raising concerns for pyelonephritis. She was started on IV ceftriaxone and admission requested for further care. Hospital course: sepsis sec to E coli bacteremia,pyelonephritis (uti):had leucocytosis ,fever ,dysuria - started on iv antibiotics ,lactic acid and blood cultures sent,ct abd:CT/CT abdomen pelvis -Subtle patchy diminished cortical enhancement at the left upper pole with surrounding perinephric stranding which raise the possibility of pyelonephritis. ct abd : has 3.3 x 1.5 x 4.6 cm complex collection in the ventral abdominal wall in the epigastric region, likely corresponding to the remnants of a postoperative hematoma or scar tissue. above is d/w patient and her daughter has scar in upper abd ( had hysterectmy in apr- ) -patient doesnot have any flacuatation or pain or erythema on exam . need to follow up outpatient with patient surgeon. continue ertapenem 1 gm qdaily for 13 more days ,consider moniter cbc ,bmp ,lft q weekly while on antibiotics. follow up with pcp outpatient. plan: ct abd : has 3.3 x 1.5 x 4.6 cm complex collection in the ventral abdominal wall in the epigastric region, likely corresponding to the remnants of a postoperative hematoma or scar tissue. above is d/w patient and her daughter has scar in upper abd ( had hysterectmy in apr- ) -patient doesnot have any flacuatation or pain or erythema on exam . need to follow up outpatient with patient surgeon. 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 The lack of growth over time suggests a benign lesion. patient says she follow up with above in [facility] . continue ertapenem 1 gm qdaily for 13 more days ,consider moniter cbc ,bmp ,lft q weekly while on antibiotics. follow up with pcp outpatient. Above management discussed with the patient andher daughter in detail length both understand and in agreement with the above plan, time spent 50 minutes and 50% time spent on counseling. Time Attestation Discharge coordination time: Greater than 30 minutes Quality: Safe Use of Opioids Does Pt have an Active Cancer Diagnosis on the Problem List?: No Quality: Stroke Does the patient have a stroke diagnosis?: No Physical Exam Vital Signs: Vital Signs: Last Vital Signs Temp 98.8 F 07/14/23 07:40 Pulse 62 07/14/23 07:40 Resp 18 07/14/23 07:40 BP 149/72 H 07/14/23 07:40 Pulse Ox 95 07/14/23 07:40 O2 Del Method Room Air 07/14/23 07:40 BMI result Body Mass Index 43.1 Appearance: Alert.? Oriented X3.generlaised weak cvs: rrr, [id number] . res: clear to auscultation ,no rhonchii or wheezing abd: no rebound or guarding ,nt, bs present. : no cva tenderness. ext pulses present , no cyanosis. neuro: axo3 , nonfocal. DS: Data Data Completed and Pending Labs on day of discharge: Laboratory Results - last 24 hr 07/13/23 07/13/23 07/14/23 17:20 19:50 07:39 POC Glucose 152 H 250 H 166 H 07/14/23 11:15 POC Glucose [address] scan - abdomen: Radiologist's impression: ITS Impressions Abdomen/Pelvis CT 07/10/23 22:49 IMPRESSION: 1. Subtle patchy diminished cortical enhancement at the left upper renal pole with surrounding perinephric stranding which raise the possibility of pyelonephritis. Recommend correlation with urinalysis. No evidence of obstructive uropathy. 2. 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 The lack of growth over time suggests a benign lesion. 3. A 3.3 x 1.5 x 4.6 cm complex collection in the ventral abdominal wall in the epigastric region, likely corresponding to the remnants of a postoperative hematoma or scar tissue. 4. Mild colonic diverticulosis without evidence of acute diverticulitis. 5. Status post bariatric gastric sleeve procedure. No acute abnormalities are identified in the left upper quadrant. 6. Unchanged focal renal cortical scarring at the lower pole of the right kidney. 7. New appendicoliths at the neck of the appendix without evidence of acute appendicitis. Fleischner guidelines were followed. Discharge Plan Discharge Anticipated Discharge Date/Time: 07/14/23 10:30 Patient Disposition: Home Health Service Discharge Diagnosis: sepsis sec to uti (esbl ) Referrals: [facility] [Other] - 1 Day ([facility] will deliver your antibiotics) [facility] [Outside] - 1 Day ([facility] will call you to schedule) Cynthia Carson DO [Primary Care Provider] - 1 Week Discharge Medications: New ertapenem 1 gram recon soln 1 g IV DAILY Qty: 13 0RF Continued multivitamin Tablet 1 tab PO DAILY baclofen 10 mg Tablet 10 mg PO TID PRN (Reason: Spasms) omeprazole 20 mg Tablet,Delayed Release (Dr/Ec) 20 mg PO DAILY@0630 cholecalciferol (vitamin D3) [Vitamin D3] 50 mcg (2,000 unit) Tablet 50 mcg PO DAILY insulin glargine [Lantus Solostar U-100 Insulin] 100 unit/mL (3 mL) insulin pen 8 unit SUBCUT DAILY loratadine 10 mg tablet 10 mg PO DAILY PRN (Reason: Allergy Symptoms) fluticasone propionate 50 mcg/actuation spray,suspension 2 spray intranasal DAILY PRN (Reason: Allergy Symptoms) Xarelto 20 mg Tablet 20 mg PO DAILY@1700 Qty: 30 0RF insulin lispro [Humalog KwikPen Insulin] 100 unit/mL Insulin Pen 1 sliding scale dose SUBCUT QIDACHS Qty: 15 0RF Rx Instructions: Blood Sugar: <150 - 0 units 151-200 - 2 units 201-250 - 4 units 251-300 - 6 units 301-350 - 8 units >350 - 10 units (DME) pen needle, diabetic 32 gauge x 1/4 Needle Qty: 100 0RF Rx Instructions: Use four times a day or as directed. atorvastatin 80 mg tablet 80 mg PO BEDTIME acetaminophen 650 mg tablet extended release 650 mg PO Q8H PRN (Reason: fever) docusate sodium 100 mg capsule 100 mg PO BID PRN (Reason: Constipation) fluoxetine 20 mg capsule 40 mg PO DAILY metformin 500 mg tablet extended release 24 hr 1,000 mg PO BID sennosides [senna] 8.6 mg tablet 17.2 mg PO BEDTIME PRN (Reason: constipation) trazodone 50 mg tablet 100 mg PO BEDTIME PRN (Reason: insomnia) magnesium oxide 400 mg magnesium tablet 400 mg PO BEDTIME diclofenac sodium 75 mg tablet,delayed release (DR/EC) 75 mg PO BID PRN (Reason: pain) Qty: 60 0RF amlodipine 5 mg tablet 5 mg PO DAILY lisinopril 40 mg tablet 40 mg PO DAILY Discharge Orders: Discharge Order (Routine); Ordered 07/14/23 Ordered By: Jessica Sandra Diet: Advance to usual diet Activity on Discharge: As tolerated Stand Alone Forms: Patient Portal Discharge page Care Plan Goals: sepsis sec to E coli bacteremia,pyelonephritis (uti):had leucocytosis ,fever ,dysuria - started on iv antibiotics ,lactic acid and blood cultures sent,ct abd:CT/CT abdomen pelvis -Subtle patchy diminished cortical enhancement at the left upper pole with surrounding perinephric stranding which raise the possibility of pyelonephritis. ct abd : has 3.3 x 1.5 x 4.6 cm complex collection in the ventral abdominal wall in the epigastric region, likely corresponding to the remnants of a postoperative hematoma or scar tissue. above is d/w patient and her daughter has scar in upper abd ( had hysterectmy in apr- ) -patient doesnot have any flacuatation or pain or erythema on exam . need to follow up outpatient with patient surgeon. continue ertapenem 1 gm qdaily for 13 more days ,consider moniter cbc ,bmp ,lft q weekly while on antibiotics. follow up with pcp outpatient. Health Concerns: as above. Plan of Treatment: as above. Assessment: as above. Patient Instructions: Ertapenem (By injection), Urinary Tract Infection in Women (DC), Sepsis (GEN), How to Care for Your Midline Catheter (DC)
== END 2023-07-14 13:37 | disposition home health service (06) | DRG 872 ==
LOC: HO.ED 07-11 01:35 → HO.EDOVER 07-11 01:52 → HO.S3 07-11 14:11
PROVIDERS: Physician Assistant Medical; Admitting Provider Internal Medicine; Emergency Provider Emergency Medicine Emergency Medical Services; PCP Family Medicine; Visit Provider Internal Medicine
PROC: 05HD33Z Insertion of Infusion Device into Right Cephalic Vein, Percutaneous Approach (ICD-10-PCS; principal; 2023-07-13 16:30)
DX: A41.51 Sepsis due to Escherichia coli [E. coli] (principal); Z68.41 Body mass index [BMI] 40.0-44.9, adult; N12 Tubulo-interstitial nephritis, not specified as acute or chronic; Z16.12 Extended spectrum beta lactamase (ESBL) resistance; I48.91 Unspecified atrial fibrillation; I10 Essential (primary) hypertension; E78.5 Hyperlipidemia, unspecified; I25.10 Atherosclerotic heart disease of native coronary artery without angina pectoris; E66.01 Morbid (severe) obesity due to excess calories; Z20.822 Contact with and (suspected) exposure to COVID-19; Z98.84 Bariatric surgery status; Z79.4 Long term (current) use of insulin; Z79.01 Long term (current) use of anticoagulants; Z79.899 Other long term (current) drug therapy
CPT/HCPCS: 0241U; 36410; 36415; 74177; 80048; 80053; 80076; 81001; 82947; 83036; 83605; 83735; 85025; 85652; 86140; 87040; 87077; 87086; 87088; 87186; 87205; 99285; C1751; J0696; J1335; J1642; J1885; J2185; Q9967

== ENCOUNTER → 2023-07-11 01:39 | Outpatient (BNV) | payer OTHER, SELFPAY | PROVIDERS: Admitting Provider Internal Medicine; Emergency Provider Emergency Medicine Emergency Medical Services; PCP Family Medicine; Visit Provider Internal Medicine | DX: A41.9 Sepsis, unspecified organism (principal); N12 Tubulo-interstitial nephritis, not specified as acute or chronic; E11.65 Type 2 diabetes mellitus with hyperglycemia | CPT/HCPCS: 99223; 99232; 99239; 99499 ==

== ENCOUNTER 2023-07-19 13:42 | Outpatient (REF) | payer OTHER, SELFPAY ==
[2023-07-19 13:45] LABS: MANUAL DIFF FLAG NO
[2023-07-19 13:52] LABS: Basophils Percent Auto 0.3 % (0-2); Eosinophils Absolute Auto 0.1 X10*3/uL (0.0-0.4); Eosinophils Percent Auto 0.7 % (0-4); Hematocrit 31.5 % (37.0-47.0); Hemoglobin 10.2 g/dl (12.0-16.0); Imm Gran Abs Auto 0.06 X10*3/uL (0.00-0.03); Imm Gran Pct Auto 0.9 % (0.0-0.4); Lymphocytes Absolute Auto 1.8 X10*3/uL (1.2-4.9); Mean Corpuscular HGB Conc 32.4 g/dl (31.0-35.0); Mean Corpuscular Hemoglobin 29.5 pg (27.0-33.0); Mean Platelet Volume 9.5 fL (9.4-12.3); Monocytes Absolute Auto 0.5 X10*3/uL (0.1-1.2); Monocytes Percent Auto 7.3 % (2-11); Neutrophils Absolute Auto 4.5 x10*3/uL (2.0-8.3); Neutrophils Percent Auto 64.8 % (45-73); Platelet Count 359 X10*3/uL (160-400); Red Blood Count 3.46 X10*6/uL (4.20-5.50)
[2023-07-19 14:02] LABS: Alanine Aminotransferase 52 U/L (0-31); Albumin Level 3.8 g/dL (3.5-5.0); Alkaline Phosphatase 171 U/L (39-117); Anion Gap 11 (12-20); Aspartate Amino Transferase 42 U/L (5-31); Bilirubin Total 0.5 mg/dL (0.0-1.0); Blood Urea Nitrogen 14 mg/dL (9-16); Calcium 9.6 mg/dL (8.4-10.2); Carbon Dioxide 23 mmol/L (22-29); Chloride 106 mmol/L (96-108); Estimated Glomerular Filt Rate > 60; Glucose Random 216 mg/dL (60-115); Potassium 3.7 mmol/L (3.3-5.1); Sodium 136 mmol/L (135-145); Total Protein 7.5 g/dL (6.5-8.0)
== END 2023-07-19 13:43 | disposition home or self-care (01) ==
LOC: HO.HVNA 13:42
PROVIDERS: Visit Provider Internal Medicine
DX: N39.0 Urinary tract infection, site not specified (principal)
CPT/HCPCS: 36415; 80053; 85025

== ENCOUNTER 2023-07-27 12:09 | Outpatient (REF) | payer OTHER, SELFPAY ==
[2023-07-27 12:12] LABS: MANUAL DIFF FLAG NO
[2023-07-27 12:17] LABS: Basophils Percent Auto 0.5 % (0-2); Eosinophils Percent Auto 0.5 % (0-4); Hematocrit 34.4 % (37.0-47.0); Hemoglobin 11.2 g/dl (12.0-16.0); Imm Gran Abs Auto 0.01 X10*3/uL (0.00-0.03); Imm Gran Pct Auto 0.2 % (0.0-0.4); Lymphocytes Absolute Auto 1.5 X10*3/uL (1.2-4.9); Lymphocytes Percent Auto 27.6 % (20-40); Mean Corpuscular HGB Conc 32.6 g/dl (31.0-35.0); Mean Corpuscular Hemoglobin 30.3 pg (27.0-33.0); Mean Platelet Volume 10.5 fL (9.4-12.3); Monocytes Absolute Auto 0.4 X10*3/uL (0.1-1.2); Monocytes Percent Auto 7.9 % (2-11); Neutrophils Absolute Auto 3.5 x10*3/uL (2.0-8.3); Neutrophils Percent Auto 63.3 % (45-73); Platelet Count 325 X10*3/uL (160-400); Red Cell Distribution Width 14.6 % (11.0-16.0); White Blood Count 5.6 X10*3/uL (4.8-10.8)
[2023-07-27 12:47] LABS: Alanine Aminotransferase 17 U/L (0-31); Albumin Level 3.8 g/dL (3.5-5.0); Alkaline Phosphatase 132 U/L (39-117); Anion Gap 12 (12-20); Aspartate Amino Transferase 17 U/L (5-31); Bilirubin Total 0.4 mg/dL (0.0-1.0); Blood Urea Nitrogen 15 mg/dL (9-16); Calcium 9.6 mg/dL (8.4-10.2); Carbon Dioxide 25 mmol/L (22-29); Chloride 108 mmol/L (96-108); Estimated Glomerular Filt Rate > 60; Glucose Random 118 mg/dL (60-115); Potassium 3.9 mmol/L (3.3-5.1); Sodium 141 mmol/L (135-145); Total Protein 7.5 g/dL (6.5-8.0)
== END 2023-07-27 12:10 | disposition home or self-care (01) ==
LOC: HO.HVNA 12:09
PROVIDERS: Visit Provider Internal Medicine
DX: B99.9 Unspecified infectious disease (principal)
CPT/HCPCS: 36415; 80053; 85025

== ENCOUNTER 2023-07-31 13:12 | Outpatient (AMB) | payer OTHER, SELFPAY ==
--- NOTE | 2023-07-31 13:13 | MHC.OFFVIS ---
Intake Vital Signs 07/31/23 13:19 Height 5 ft 3 in Weight 232 lb BMI 41.1 BP 149/73 H Blood Pressure Location Lt brachial Position Sitting Pulse 88 Pulse Source Pulse Oximeter Temp 98.2 F Temp Source Oral Pulse Oximetry (%) 98 Intake Visit Reasons: end of picc line ertapenem Infectious Waste Technician Required: Yes Infectious Waste Technician Name: Heraclio Cooley CMA Information Interpreted: clinical only Allergies No Known Allergies [No Known Allergies*] Allergy (Verified 08/01/23 10:50) HPI end of picc line ertapenem HPI Details She was hospitalized for ESBL bacteremia. She is taking IV Ertapenem and feels better. She has no fever or chills. [facility] Medical History Hospital discharge follow-up New onset atrial flutter Poor historian Encounter for screening colonoscopy Cervical cancer screening Women's annual routine gynecological examination Morbid obesity Bacterial vaginosis Vaginal itching Bladder pain Language barrier History of cardioversion Atrial flutter, paroxysmal On beta pat at home On anticoagulant therapy Atrial fibrillation and flutter Atrial fibrillation Diabetes Essential hypertension Abdominal pain Lab test negative for COVID-19 virus Arthritis Anemia GERD (gastroesophageal reflux disease) Hepatitis Depression Hypercholesteremia Diabetes HTN (hypertension) Surgical History Hx of abdominal surgery Hx of dilation and curettage Hx of excision of mass Hx of section Hx of tubal ligation Hx of reduction mammoplasty Hx of cholecystectomy Hx of gastric bypass Bariatric surgery status Social History Household Members: Children Housing: Apartment Are you a primary home care associate to a significant other at home: No Do you presently have visiting nurse or other home services: No Alcohol intake: never Comment: history-long ago fall when having issues with knees Patient Tobacco Use Status: Never used Tobacco Smoked in Last 30 Days: No e-Cigarette/Vaping Use: Never Used Use of substances other than those prescribed or required for medical reasons: No Advance Directives: No Advance Directives Information Provided: Yes Advance Directives Date on File: 11/09/21 Patient : No service: No Current occupational status: disabled Current occupation: rt handed Female Reproductive History Menstrual Age of Menarche: 11 Review of Systems Const All systems reviewed & are unremarkable except as noted in HPI and below Physical Exam Vital Signs: Last Vital Signs Temp 98.2 F 07/31/23 13:19 Pulse 88 07/31/23 13:19 BP 149/73 H 07/31/23 13:19 Pulse Ox 98 07/31/23 13:19 BMI result Body Mass Index 41.1 Const General: cooperative HEENT Head: Yes normal to inspection Face and sinus: Yes normal facial exam Mouth: Normal oral and palatal mucosa present Teeth and gingiva: dentition normal Eyes General: appearance normal, both eyes and all related structures Pupils: Equal, round and reactive pupils present Resp Effort & Inspection: normal respiratory effort Cardio Rate: regular rate Rhythm: regular rhythm GI Palpation (GI): Soft to palpation and nontender General: Yes no CVA tenderness Back/Spine/Pelvis Back: no CVA tenderness Skin General skin exam: no rashes or lesions noted Neuro General: moves all extremities Cranial nerves: Yes Equal, round and reactive pupils present Extrem General: Yes normal to inspection Psych Appearance: grossly normal Assessment & Plan Assessment & Plan (1) Sepsis: Comment: ESBL bacteremia ,feeling better Code(s): A41.9 - Sepsis, unspecified organism Qualifiers: Sepsis type: sepsis due to unspecified organism Sepsis acute organ dysfunction status: without acute organ dysfunction Qualified Code(s): A41.9 - Sepsis, unspecified organism Plan Finish Ertapenem 10-14 days See again if needed. Orders: Orders IR cvc remove any age 0107/31/23 N12 - Tubulo-interstitial nephritis, not specified as acute or chronic Coding Level of Care Code Est Pt Level 3 (32338) Diagnoses Sepsis without acute organ dysfunction, due to unspecified organism A41.9 Sepsis type: sepsis due to unspecified organism Sepsis acute organ dysfunction status: without acute organ dysfunction
[2023-07-31 13:19] VITALS: BP 149/73; PULSE 88; TEMP 36.8; O2SAT 98; BMI 41.1
== END 2023-07-31 13:52 | disposition home or self-care (01) ==
PROVIDERS: PCP Family Medicine; Visit Provider Internal Medicine
DX: A41.9 Sepsis, unspecified organism (principal)
CPT/HCPCS: 99213

== ENCOUNTER → 2023-07-31 13:12 | Outpatient (BNVA) | payer OTHER, SELFPAY | PROVIDERS: PCP Family Medicine; Visit Provider Internal Medicine | DX: A41.9 Sepsis, unspecified organism (principal) | CPT/HCPCS: 99212 ==

== ENCOUNTER 2023-07-31 15:08 | Outpatient (REF) | payer OTHER, SELFPAY ==
[2023-07-31 16:17] LABS: Basophils Percent Auto 0.6 % (0-2); Eosinophils Absolute Auto 0.1 X10*3/uL (0.0-0.4); Eosinophils Percent Auto 0.9 % (0-4); Hematocrit 35.2 % (37.0-47.0); Hemoglobin 11.5 g/dl (12.0-16.0); Imm Gran Abs Auto 0.01 X10*3/uL (0.00-0.03); Imm Gran Pct Auto 0.1 % (0.0-0.4); Lymphocytes Absolute Auto 2.3 X10*3/uL (1.2-4.9); Lymphocytes Percent Auto 33.4 % (20-40); MANUAL DIFF FLAG SCAN; Mean Corpuscular HGB Conc 32.7 g/dl (31.0-35.0); Mean Corpuscular Hemoglobin 30.6 pg (27.0-33.0); Mean Corpuscular Volume 93.6 fL (80.0-98.0); Mean Platelet Volume 10.7 fL (9.4-12.3); Monocytes Absolute Auto 0.5 X10*3/uL (0.1-1.2); Monocytes Percent Auto 7.2 % (2-11); Neutrophils Percent Auto 57.8 % (45-73); PLT CLUMP 1; Red Blood Count 3.76 X10*6/uL (4.20-5.50); Red Cell Distribution Width 14.3 % (11.0-16.0); SCAN SMEAR FLAG 1
[2023-07-31 16:23] LABS: Alanine Aminotransferase 47 U/L (0-31); Albumin Level 4.2 g/dL (3.5-5.0); Alkaline Phosphatase 137 U/L (39-117); Anion Gap 16 (12-20); Aspartate Amino Transferase 35 U/L (5-31); Bilirubin Total 0.4 mg/dL (0.0-1.0); Blood Urea Nitrogen 16 mg/dL (9-16); Calcium 9.9 mg/dL (8.4-10.2); Carbon Dioxide 23 mmol/L (22-29); Chloride 106 mmol/L (96-108); Estimated Glomerular Filt Rate > 60; Glucose Random 105 mg/dL (60-115); Potassium 4.2 mmol/L (3.3-5.1); Sodium 141 mmol/L (135-145)
[2023-07-31 16:46] LABS: Platelet Count 168 X10*3/uL (160-400); SLIDE REVIEW VERIFIED
== END 2023-07-31 15:09 | disposition home or self-care (01) ==
LOC: HO.HHCL 15:08
PROVIDERS: Visit Provider General Practice
DX: T88.7XXA Unspecified adverse effect of drug or medicament, initial encounter (principal)
CPT/HCPCS: 36415; 80053; 85025

== ENCOUNTER 2023-08-01 10:41 | Emergency (ER) | payer OTHER, SELFPAY ==
--- NOTE | 2023-08-01 | ECG_ITS ---
Test Reason : arrhythmia Blood Pressure : / mmHG Vent. Rate : 090 BPM Atrial Rate : 308 BPM P-R Int : 000 ms QRS Dur : 100 ms QT Int : 354 ms P-R-T Axes : -83 010 082 degrees QTc Int : 433 ms Atrial flutter with variable A-V block Abnormal ECG When compared with ECG of 13-AUG-2022 19:47, Atrial flutter has replaced Sinus rhythm Vent. rate has increased BY 46 BPM Nonspecific T wave abnormality now evident in Lateral leads QT has lengthened Referred By: Generic ED Physician Electronically Signed By:ADIS ERICKSON MD
[2023-08-01 10:52] VITALS: BP 115/65; BP 164/88; PULSE 160; PULSE 77; RESP 18; TEMP 36.9; O2SAT 97; O2SAT 98; BMI 41.5
[2023-08-01 11:10] LABS: MANUAL DIFF FLAG NO
[2023-08-01 11:15] LABS: Basophils Percent Auto 0.5 % (0-2); Eosinophils Percent Auto 0.3 % (0-4); Hematocrit 36.8 % (37.0-47.0); Hemoglobin 12.2 g/dl (12.0-16.0); Imm Gran Abs Auto 0.01 X10*3/uL (0.00-0.03); Imm Gran Pct Auto 0.2 % (0.0-0.4); Lymphocytes Absolute Auto 2.1 X10*3/uL (1.2-4.9); Lymphocytes Percent Auto 32.5 % (20-40); Mean Corpuscular HGB Conc 33.2 g/dl (31.0-35.0); Mean Corpuscular Volume 90.6 fL (80.0-98.0); Monocytes Absolute Auto 0.6 X10*3/uL (0.1-1.2); Monocytes Percent Auto 9.2 % (2-11); Neutrophils Absolute Auto 3.7 x10*3/uL (2.0-8.3); Neutrophils Percent Auto 57.3 % (45-73); Platelet Count 282 X10*3/uL (160-400); Red Blood Count 4.06 X10*6/uL (4.20-5.50); Red Cell Distribution Width 14.1 % (11.0-16.0); White Blood Count 6.5 X10*3/uL (4.8-10.8)
[2023-08-01 11:26] LABS: Anion Gap 17 (12-20); Blood Urea Nitrogen 15 mg/dL (9-16); Calcium 9.6 mg/dL (8.4-10.2); Carbon Dioxide 19 mmol/L (22-29); Chloride 109 mmol/L (96-108); Creatinine Clr Calc Pharmacy 97.9; Estimated Glomerular Filt Rate > 60; Glucose Random 157 mg/dL (60-115); Potassium 3.7 mmol/L (3.3-5.1); Sodium 141 mmol/L (135-145)
[2023-08-01 11:41] LABS: Troponin-I High Sensitivity < 2.7 ng/L (<3.5-17.0)
[2023-08-01 11:54] VITALS: BP 120/76; PULSE 149; RESP 18; O2SAT 97
--- NOTE | 2023-08-01 12:04 | ED_ITS ---
HPI - Arrhythmia/Palpitations General Chief Complaint: Arrhythmia/Palpitations Stated Complaint: RECENT UTI Time Seen by Provider: 08/01/23 11:46 Source: patient and family Mode of arrival: EMS Limitations: language barrier (Patient speaks Maltese only, interventional nurse used) History of Present Illness HPI narrative: 57-year-old female history of mild cardiomyopathy, paroxysmal atrial flutter, diabetes, hypertension, depressed who presents emergency department for evaluation of palpitations, shortness of breath, dizziness and fatigue which came on suddenly at 02:00 hours this morning. She states she had some mild chest pain which she describes a fluttering sensation in her chest. She denied diaphoresis, nausea, vomiting, pain radiating to her neck, jaw or arms. Symptoms persisted therefore she came to the emergency department for evaluation. Patient was brought to emergency department by ambulance and was found to be in atrial flutter with a rate of 160, was given 25 mg of diltiazem IV patient's heart rate went down to 90 beats per minute but she remained in atrial flutter. The patient was recently hospitalized from 07/11/2023 until 07/14/2023 with sepsis secondary to E coli bacteremia and pyelonephritis. Related Data Home Medications Medication Instructions Recorded Confirmed baclofen 10 mg tablet 10 mg PO TID PRN Spasms 04/29/20 07/11/23 cholecalciferol (vitamin D3) 50 50 mcg PO DAILY 04/29/20 07/11/23 mcg (2,000 unit) tablet (Vitamin D3) omeprazole 20 mg tablet,delayed 20 mg PO DAILY@0630 04/29/20 07/11/23 release fluticasone propionate 50 2 spray intranasal DAILY PRN 10/22/21 07/11/23 mcg/actuation nasal Allergy Symptoms spray,suspension atorvastatin 80 mg tablet 80 mg PO BEDTIME 10/27/21 07/11/23 insulin glargine 100 unit/mL (3 8 unit subcut DAILY 11/06/21 07/11/23 mL) subcutaneous pen (Lantus Solostar U-100 Insulin) acetaminophen 650 mg 650 mg PO Q8H PRN fever 01/04/22 07/11/23 tablet,extended release docusate sodium 100 mg capsule 100 mg PO BID PRN Constipation 01/04/22 07/11/23 fluoxetine 20 mg capsule 40 mg PO DAILY 01/04/22 07/11/23 loratadine 10 mg tablet 10 mg PO DAILY PRN Allergy Symptoms 01/04/22 07/11/23 metformin 500 mg tablet,extended 1,000 mg PO BID 01/04/22 07/11/23 release 24 hr sennosides 8.6 mg tablet (senna) 17.2 mg PO BEDTIME PRN constipation 03/08/22 07/11/23 amlodipine 5 mg tablet 5 mg PO DAILY 03/13/23 07/11/23 lisinopril 40 mg tablet 40 mg PO DAILY 03/13/23 07/11/23 magnesium oxide 400 mg PO BEDTIME 07/11/23 07/11/23 trazodone 50 mg tablet 100 mg PO BEDTIME PRN insomnia 07/11/23 07/11/23 Previous Rx's Medication Instructions Recorded rivaroxaban 20 mg tablet (Xarelto) 20 mg PO DAILY@1700 #30 tabs 10/26/21 diclofenac sodium 75 mg 75 mg PO BID PRN pain #60 tabs 08/05/22 tablet,delayed release ertapenem 1 gram solution for 1 g IV DAILY #13 ea 07/14/23 injection diltiazem HCl 30 mg tablet 30 mg PO BID #60 tabs 08/01/23 Allergies Allergy/AdvReac Type Severity Reaction Status Date / Time No Known Allergies Allergy Verified 08/01/23 10:50 [No Known Allergies*] Review of Systems 2 Review of Systems: Yes all other systems are reviewed and are negative [facility] Past Medical History [facility] Narrative: Social history: She denies tobacco, alcohol and drug use. Medical History Hospital discharge follow-up New onset atrial flutter Poor historian Encounter for screening colonoscopy Cervical cancer screening Women's annual routine gynecological examination Morbid obesity Bacterial vaginosis Vaginal itching Bladder pain Language barrier History of cardioversion Atrial flutter, paroxysmal On beta pat at home On anticoagulant therapy Atrial fibrillation and flutter Atrial fibrillation Diabetes Essential hypertension Abdominal pain Lab test negative for COVID-19 virus Arthritis Anemia GERD (gastroesophageal reflux disease) Hepatitis Depression Hypercholesteremia Diabetes HTN (hypertension) Surgical History Hx of abdominal surgery Hx of dilation and curettage Hx of excision of mass Hx of section Hx of tubal ligation Hx of reduction mammoplasty Hx of cholecystectomy Hx of gastric bypass Bariatric surgery status Social History Social History Household Members: Children Housing: Apartment Are you a primary urgent care nurse practitioner to a significant other at home: No Do you presently have visiting nurse or other home services: No Alcohol intake: never Comment: history-long ago fall when having issues with knees Patient Tobacco Use Status: Never used Tobacco Smoked in Last 30 Days: No e-Cigarette/Vaping Use: Never Used Use of substances other than those prescribed or required for medical reasons: No Advance Directives: No Advance Directives Information Provided: Yes Advance Directives Date on File: 11/09/21 Patient : No service: No Current occupational status: disabled Current occupation: rt handed Physical Exam 2 Vital Signs: Vital Signs: Last Vital Signs Temp 98.4 F 08/01/23 10:52 Pulse 79 08/01/23 14:29 Resp 17 08/01/23 14:29 BP 97/54 L 08/01/23 14:29 Pulse Ox 99 08/01/23 14:29 O2 Del Method Room Air 08/01/23 14:29 BMI result Body Mass Index 41.5 Vital signs were normal except for an elevated heart rate of 149. Exam: General: Awake, alert in no distress, elevated BMI 41 point Head: Normocephalic, atraumatic EENT: PERRL, Lids normal, sclera normal, conjunctiva normal, nose normal , ears normal, throat without erythema or exudates Neck: Supple, no adenopathy, no trachea midline or C-spine tenderness Lung: breath sounds symmetric, no wheezing, rales or rhonchi Chest: symmetric movement, nontender Heart: Tachycardia with regular rhythm, normal S1, S2 no murmurs or rubs Abdomen: soft, non-tender, nondistended, normal bowel sounds Back: no vertebral tenderness, no CVAT Extremities: no deformities, moves all extremities symmetrically Skin: no rashes, no lesion, normal color and warmth Neuro: Awake, alert, oriented, normal speech, cranial nerves intact, moves all extremities symmetrically Psych: Pleasant, cooperative Medications Administered Discontinued Medications Generic Name Dose Route Start Last Admin Trade Name Freq PRN Reason Stop Dose Admin Diltiazem HCl 20 mg 08/01/23 12:05 08/01/23 12:09 Diltiazem Hcl 50 Mg/10 Ml Vial IVPUSH 08/01/23 12:06 20 mg STAT STA Administration Medical Decision Making Medical Decision Making [facility] Narrative: 57-year-old female history of mild cardiomyopathy, paroxysmal atrial flutter, diabetes, hypertension, depressed who presents emergency department for evaluation of palpitations, shortness of breath, dizziness and fatigue which came on suddenly at 02:00 hours this morning. She states she had some mild chest pain which she describes a fluttering sensation in her chest. Patient was brought to emergency department by ambulance and found to be in atrial flutter with a rate of 160 beats per minute given diltiazem 25 mg IV by paramedics. Physical examination was unremarkable except for tachycardia. Differential diagnosis includes but is not limited to myocardial infarction, myocardial ischemia, atrial fibrillation, atrial flutter, electrolyte abnormalities, anemia Following evaluation was ordered: CBC, BMP, PTT, troponin x2, EKG x 3 Patient was treated with the following, diltiazem 20 mg IV 15:32 My interpretation patient's laboratory evaluation as follows: CBC was normal except for mild anemia with an H&H of 12.2 and 36.8. PTT was normal. Glucose elevated 157. First troponin was below detectable limits and repeat troponin was 4.2 which is detectable but not elevated Patient's rate went back up to 150 beats per minute she required a 2nd dose of diltiazem 20 mg IV which did slow her rate down to 90. The patient then spontaneously converted to a sinus rhythm. I did review the patient's last cardiology note by Dr. Evangelista which stated that the patient's beta-pat were stop secondary bradycardia and recommended not to start any agents that would lower the patient's heart rate. I did discuss the patient's presentation further management over tiger text with Dr. Evangelista and he recommends diltiazem 30 mg b.i.d. Patient will be discharged home. Admission/Observation Consideration of admission/observation: Escalation of care including admission/observation considered Consult Healthcare Provider Management of the patient was discussed with: Special Services Agent ([employer] [place]) Lab Data [facility] Lab Attestation statement: I reviewed the patient's lab results. 08/01/23 11:05 08/01/23 11:05 Labs: Lab Results 08/01/23 08/01/23 Range/Units 11:05 12:40 WBC 6.5 (4.8-10.8) X10*3/uL RBC 4.06 L (4.20-5.50) X10*6/uL Hgb 12.2 (12.0-16.0) g/dl Hct 36.8 L (37.0-47.0) % MCV 90.6 (80.0-98.0) fL MCH 30.0 (27.0-33.0) pg MCHC 33.2 (31.0-35.0) g/dl RDW 14.1 (11.0-16.0) % Plt Count 282 D (160-400) X10*3/uL MPV 9.0 L (9.4-12.3) fL Immature Gran % (Auto) 0.2 (0.0-0.4) % Neut % (Auto) 57.3 (45-73) % Lymph % (Auto) 32.5 (20-40) % [place] % (Auto) 9.2 (2-11) % Eos % (Auto) 0.3 (0-4) % Baso % (Auto) 0.5 (0-2) % Lymph # (Auto) 2.1 (1.2-4.9) X10*3/uL [place] # (Auto) 0.6 (0.1-1.2) X10*3/uL Eos # (Auto) 0.0 (0.0-0.4) X10*3/uL Baso # (Auto) 0.0 (0.0-0.2) X10*3/uL Abs Immat Gran (auto) 0.01 (0.00-0.03) X10*3/uL Absolute Neuts (auto) 3.7 (2.0-8.3) x10*3/uL Absolute Nucleated RBC 0.000 (0.0-0.012) X10*3/uL Nucleated RBC % (auto) 0.0 (0.0-0.2) /100WBC APTT 32.0 (26.0-36.8) SEC Sodium 141 (135-145) mmol/L Potassium 3.7 (3.3-5.1) mmol/L Chloride 109 H (96-108) mmol/L Carbon Dioxide 19 L (22-29) mmol/L Anion Gap 17 (12-20) BUN 15 (9-16) mg/dL Creatinine 0.74 (0.5-1.4) mg/dL Estim Creat Clear Calc 97.9 Estimated GFR > 60 Random Glucose 157 H (60-115) mg/dL Calcium 9.6 (8.4-10.2) mg/dL Troponin I High Sens < 2.7 4.2 D (<3.5-17.0) ng/L Independent Interpretation I performed an independent interpretation of an: EKG Interpretation: EKG 1. EKG done at 10:54 hours revealed a atrial flutter with a rate of 90, prolonged QRS of 100 milliseconds normal QTC of 433 milliseconds, no ST segment elevation, no ST segment depression, no abnormal T-waves. EKG 2. EKG done 12:43 hours revealed sinus rhythm with a rate of 71, normal MD, QRS and QTC interval, no ST segment elevation, no ST segment depression, no T- wave abnormalities Independent Historian Clinical information obtained from an independent historian. History obtained from or confirmed by: Other (Daughter, Crystal) External Record Review External record reviewed: Office record Prescription Management I considered prescription management with: Other (Cardizem) Chronic Conditions Patient?s care impacted by: Diabetes, Hypertension and Other (Paroxysmal atrial fibrillation) Critical Care Time Critical Care Time Critical Care Time: Yes Total Critical Care Time: 45 Attestation: Critical Care: The patient was critically ill with a high probability of imminent or life threatening deterioration. I spent greater than 30 minutes of discontinuous time evaluating the patient,delivering critical care at the bedside, discussing and evaluating pertinent data with consultants. Critical care time does not include time spent performing separately billable procedures or teaching. Total time spent performing critical care was 45 minutes. Discharge Plan Discharge Clinical Impression: Atrial flutter Qualifiers: Atrial flutter type: typical Qualified Code(s): I48.3 - Typical atrial flutter Patient Disposition: Home, Self-Care Instructions: Atrial Flutter (ED) Additional Instructions: Your blood work was unremarkable Your EKGs were consistent with atrial flutter. I did discuss your presentation with your hand embroiderer, Dr. Evangelista and he wants to start you on Cardizem (diltiazem) 30 mg twice a day to try to keep your heart rate from going fast. You were given your 1st dose here in the emergency department, start your next dose tomorrow morning. Continue taking all your other medications as prescribed. Follow-up with your doctor in 2 days. Please return to the emergency department if your symptoms get worse or if you develop any symptoms that are concerning to you. Prescriptions: New diltiazem HCl 30 mg tablet 30 mg PO BID Qty: 60 0RF No Action baclofen 10 mg Tablet 10 mg PO TID PRN (Reason: Spasms) omeprazole 20 mg Tablet,Delayed Release (Dr/Ec) 20 mg PO DAILY@0630 cholecalciferol (vitamin D3) [Vitamin D3] 50 mcg (2,000 unit) Tablet 50 mcg PO DAILY insulin glargine [Lantus Solostar U-100 Insulin] 100 unit/mL (3 mL) insulin pen 8 unit SUBCUT DAILY loratadine 10 mg tablet 10 mg PO DAILY PRN (Reason: Allergy Symptoms) fluticasone propionate 50 mcg/actuation spray,suspension 2 spray intranasal DAILY PRN (Reason: Allergy Symptoms) Xarelto 20 mg Tablet 20 mg PO DAILY@1700 Qty: 30 0RF atorvastatin 80 mg tablet 80 mg PO BEDTIME acetaminophen 650 mg tablet extended release 650 mg PO Q8H PRN (Reason: fever) docusate sodium 100 mg capsule 100 mg PO BID PRN (Reason: Constipation) fluoxetine 20 mg capsule 40 mg PO DAILY metformin 500 mg tablet extended release 24 hr 1,000 mg PO BID sennosides [senna] 8.6 mg tablet 17.2 mg PO BEDTIME PRN (Reason: constipation) trazodone 50 mg tablet 100 mg PO BEDTIME PRN (Reason: insomnia) magnesium oxide 400 mg magnesium tablet 400 mg PO BEDTIME ertapenem 1 gram recon soln 1 g IV DAILY Qty: 13 0RF diclofenac sodium 75 mg tablet,delayed release (DR/EC) 75 mg PO BID PRN (Reason: pain) Qty: 60 0RF amlodipine 5 mg tablet 5 mg PO DAILY lisinopril 40 mg tablet 40 mg PO DAILY
[2023-08-01] MEDS: dilTIAZem HCL 50 MG/10 ML VIAL 20 MG IVPUSH (12:09)
--- NOTE | 2023-08-01 12:33 | ECG_ITS ---
Test Reason : CONVERT TO SINUS Blood Pressure : / mmHG Vent. Rate : 071 BPM Atrial Rate : 071 BPM P-R Int : 190 ms QRS Dur : 096 ms QT Int : 370 ms P-R-T Axes : 012 007 040 degrees QTc Int : 402 ms Normal sinus rhythm Normal ECG When compared with ECG of 01-AUG-2023 10:54, Sinus rhythm has replaced Atrial flutter Referred By: Jame Hood Electronically Signed By:ADIS ERICKSON MD
--- NOTE | 2023-08-01 12:51 | PC.NURSE ---
Patient given Cardizem iv push converted into Normal sinus rythym Dr. Hood notified. Ordered ekg for conversion.
[2023-08-01 13:10] LABS: Troponin-I High Sensitivity 4.2 ng/L (<3.5-17.0)
[2023-08-01 14:29] VITALS: BP 97/54; PULSE 79; RESP 17; O2SAT 99
--- NOTE | 2023-08-01 15:13 | PC.NURSE ---
Patient is still tele: sinus rythym 70's awaiting Automotive Upholsterer recommendation for medications for discharge per Dr. Hood.
[2023-08-01 15:53] VITALS: BP 119/62; PULSE 76; RESP 18; TEMP 36.6; O2SAT 97
[2023-08-01] MEDS: dilTIAZem HCL 30 MG TABLET PO (16:02)
== END 2023-08-01 16:27 | disposition home or self-care (01) ==
PROVIDERS: Emergency Provider Emergency Medicine Emergency Medical Services; PCP Family Medicine
DX: I48.3 Typical atrial flutter (principal); N39.0 Urinary tract infection, site not specified; I49.9 Cardiac arrhythmia, unspecified; R00.2 Palpitations; R11.2 Nausea with vomiting, unspecified; M54.2 Cervicalgia; Z79.899 Other long term (current) drug therapy
CPT/HCPCS: 36415; 80048; 84484; 85025; 85730; 93005; 96374; 99284; 99285

== ENCOUNTER → 2023-08-01 10:54 | Outpatient (BNV) | payer OTHER, SELFPAY | PROVIDERS: Emergency Provider Emergency Medicine Emergency Medical Services; PCP Family Medicine; Visit Provider Internal Medicine Cardiovascular Disease | DX: I49.9 Cardiac arrhythmia, unspecified (principal) | CPT/HCPCS: 93010 ==

== ENCOUNTER 2023-08-10 14:47 | Outpatient (AMB) | payer OTHER, SELFPAY ==
[2023-08-10 14:51] VITALS: BP 120/72; PULSE 96; BMI 40.6
--- NOTE | 2023-08-10 14:51 | A.OFFVIS_ITS ---
Intake Vital Signs 08/10/23 14:51 Height 5 ft 3 in Weight 229 lb 4.492 oz BMI 40.6 BP 120/72 Blood Pressure Location Lt brachial Position Sitting Pulse 96 Pulse Source Pulse Oximeter [place] [facility] [place] Int[place] Note: patient has been felling more tired then usual and having chills Head Usher Required: Yes Truck Technician: Truck Technician Present Accompanied by: Daughter Allergies No Known Allergies [No Known Allergies*] Allergy (Verified 08/10/23 14:55) Medication List - Last Reconciled 08/10/23 by GAVIN Rangel acetaminophen ER 650 mg PO Q8H PRN amlodipine 5 mg PO DAILY atorvastatin 80 mg PO BEDTIME baclofen 10 mg PO TID PRN cholecalciferol (vitamin D3) (Vitamin D3) 50 mcg PO DAILY diclofenac sodium 75 mg PO BID PRN diltiazem HCl 30 mg PO BID docusate sodium 100 mg PO BID PRN ertapenem 1 g IV DAILY fluoxetine 40 mg PO DAILY fluticasone propionate 50 mcg/actuation 2 sprays intranasal DAILY PRN insulin glargine (Lantus Solostar U-100 Insulin) 8 units subcut DAILY lisinopril 40 mg PO DAILY loratadine 10 mg PO DAILY PRN magnesium oxide 400 mg PO BEDTIME metformin ER 1,000 mg PO BID omeprazole 20 mg PO DAILY@0630 rivaroxaban (Xarelto) 20 mg PO DAILY@1700 sennosides (senna) 17.2 mg PO BEDTIME PRN trazodone 100 mg PO BEDTIME PRN [place] [facility] [place] H[place] Details Ashley is a 57-year-old female past medical history of morbid obesity, hypertension, hyperlipidemia, diabetes, nonischemic cardiomyopathy, bradycardia, atrial fibrillation/flutter who presents for follow-up after recent ER visit. She was having heart palpitations and found to have atrial flutter that was treated with rate control using diltiazem. She was then started on diltiazem 30 mg b.i.d.. Today she reports she has been doing well since her ER visit. She has not had any recurrent heart palpitations. No chest discomfort at rest or with activity. When she had the AFib going fast she did feel some discomfort in her chest. No concerning shortness of breath, PND, orthopnea or edema. No lightheadedness, presyncope, syncope, falls. She is taking all her meds as directed. Her daughter is present and assisting with translation at their request. [facility] Medical History Hospital discharge follow-up New onset atrial flutter Poor historian Encounter for screening colonoscopy Cervical cancer screening Women's annual routine gynecological examination Morbid obesity Bacterial vaginosis Vaginal itching Bladder pain Language barrier History of cardioversion Atrial flutter, paroxysmal On beta pat at home On anticoagulant therapy Atrial fibrillation and flutter Atrial fibrillation Diabetes Essential hypertension Abdominal pain Lab test negative for COVID-19 virus Arthritis Anemia GERD (gastroesophageal reflux disease) Hepatitis Depression Hypercholesteremia Diabetes HTN (hypertension) Surgical History Hx of abdominal surgery Hx of dilation and curettage Hx of excision of mass Hx of section Hx of tubal ligation Hx of reduction mammoplasty Hx of cholecystectomy Hx of gastric bypass Bariatric surgery status Social History Household Members: Children Housing: Apartment Are you a primary direct care professional to a significant other at home: No Do you presently have visiting nurse or other home services: No Alcohol intake: never Comment: history-long ago fall when having issues with knees Patient Tobacco Use Status: Never used Tobacco e-Cigarette/Vaping Use: Never Used Advance Directives Date on File: 11/09/21 service: No Current occupational status: disabled Current occupation: rt handed Female Reproductive History Menstrual Age of Menarche: 11 Review of Systems Const All systems reviewed & are unremarkable except as noted in HPI and below ENT Denies dizziness Card Denies chest pain, Denies chest pain at rest, Denies chest pain with activity, Denies rapid heart rate, Denies pedal edema, Denies edema, Denies leg edema, Denies lightheadedness, Denies palpitations, Denies dyspnea, Reports dyspnea on exertion and Denies orthopnea Resp Denies cough, Denies dyspnea and Reports dyspnea on exertion GI Denies hematochezia and Denies change in stool character Musc Denies abnormal gait, Denies limited range of motion, Denies muscle cramps, Denies muscle weakness, Denies numbness, Denies radiating pain into limb, Denies stiffness and Denies tingling Neuro Denies abnormal gait, Denies dizziness, Denies numbness and Denies tingling Endo Denies palpitations Physical Exam Vital Signs: Last Vital Signs Pulse 96 08/10/23 14:51 BP 120/72 08/10/23 14:51 BMI result Body Mass Index 40.6 Const Other: Morbidly obese General: cooperative, healthy appearing, comfortable and no acute distress Orientation/consciousness: patient oriented x3 Neck Neck: Yes normal visual inspection and Yes no JVD Resp Effort & Inspection: normal respiratory effort Auscultation: clear to auscultation bilaterally, no rales, no rhonchi and no wheezes Cardio Jugular venous distension: no JVD Rate: regular rate Rhythm: regular rhythm Heart sounds: S1 normal heart sound present, S2 normal heart sound present, no murmurs and no rubs Neuro General: patient oriented x3 Extrem General: Yes normal to inspection and No no pedal edema Psych Appearance: grossly normal Mental Status: mental status grossly normal Speech and movement: Normal speech and movement present Assessment & Plan Assessment & Plan (1) Atrial flutter: Code(s): I48.92 - Unspecified atrial flutter Plan: History of atrial fibrillation/flutter. She had been on metoprolol for heart rate control and had sinus bradycardia so it was discontinued. She has been on Xarelto for anticoagulation. On 08/01/2023 she presented to the emergency room with palpitations. EMS had treated her with diltiazem IV. A 2nd dose was given in the emergency room with control of her heart rate and she converted to sinus rhythm. She was then started on diltiazem 30 mg b.i.d. to help prevent recurrent atrial flutter. Today she reports she has not had any recurrent heart palpitations since the ER discharge. Pulse is very regular on examination, clinically in sinus rhythm. She has been tolerating the low-dose diltiazem. She continues on Xarelto. Last echocardiogram done 09/21/2022 showed EF 45-50%, mild LVH, no valve abnormalities. Will update echo prior to her next visit. Will check Holter monitor to assess for recurrent paroxysmal AFib/flutter. Plan to call her with test results. Cardiology follow-up 6 months, sooner if needed. (2) Cardiomyopathy: Code(s): I42.9 - Cardiomyopathy, unspecified Plan: Echocardiogram done on 10/25/2021 showed EF 40-45%, no valve abnormalities. Nuclear stress test done on 11/23/2021 shows normal myocardial perfusion imaging, EF 46%. Cardiomyopathy was thought to be related to the atrial fibrillation/flutter however she has mostly maintained sinus rhythm. Last echo 08/2022 showed EF 45-50%. She has no signs of decompensated heart failure on examination. Will be rechecking echocardiogram. Continue low-dose diltiazem. Continue lisinopril. Labs done 08/01/2023 showed potassium 3.7, creatinine 0.74. No med changes today. s/s HF discussed. (3) HTN (hypertension): Code(s): I10 - Essential (primary) hypertension Plan: Well controlled at present. No med changes made (4) On anticoagulant therapy: Comment: Xarelto Code(s): Z79.01 - jail (current) use of anticoagulants Plan: On Xarelto for stroke risk reduction with AFib, no bleeding issues reported. Labs done 08/01/2023 showed hematocrit 36.8., creatinine clearance 97.9 (5) Sleep apnea: Code(s): G47.30 - Sleep apnea, unspecified Plan: Sleep study done 05/31/2023 shows [id number] obstructive sleep apnea, oxygen saturation below 88% for 6 minutes. She was previously referred to sleep medicine however I do not see that she was seen. Will notify our endoscopic technician to try to set up appointment for her. Patient informed of test results. She would consider wearing a mask if required. Plan Time spent on chart review, documentation, interview and assessment Orders: Orders ECG 3 day holter monitor Today I48.92 - Unspecified atrial flutter CA echo transthoracic complete Today I42.9 - Cardiomyopathy, unspecified, I48.92 - Unspecified atrial flutter Coding Level of Care Code Est Pt Level 4 (76354) Diagnoses Atrial flutter I48.92 Cardiomyopathy I42.9 HTN (hypertension) I10 On anticoagulant therapy Z79.01 Sleep apnea G47.30 Time Spent (min) 28
== END 2023-08-10 15:22 | disposition home or self-care (01) ==
PROVIDERS: PCP Family Medicine; Visit Provider Nurse Practitioner Family
DX: I48.92 Unspecified atrial flutter (principal); I42.9 Cardiomyopathy, unspecified; I10 Essential (primary) hypertension; Z79.01 Long term (current) use of anticoagulants; G47.30 Sleep apnea, unspecified
CPT/HCPCS: 99214

== ENCOUNTER → 2023-08-10 14:47 | Outpatient (BNVA) | payer OTHER, SELFPAY | PROVIDERS: PCP Family Medicine; Visit Provider Nurse Practitioner Family | DX: I48.92 Unspecified atrial flutter (principal); I42.9 Cardiomyopathy, unspecified; I10 Essential (primary) hypertension; G47.30 Sleep apnea, unspecified; Z79.01 Long term (current) use of anticoagulants | CPT/HCPCS: 99212 ==

== ENCOUNTER 2023-08-11 09:05 | Emergency (ER) | payer OTHER, SELFPAY ==
--- NOTE | ~2023-08-11 | CT_ITS ---
EXAMINATION: CT ABDOMEN AND PELVIS WITHOUT CONTRAST CLINICAL INFORMATION: Dysuria COMPARISON: CT abdomen an pelvis 07/10/2023. TECHNIQUE: Multidetector volumetric imaging was performed from the superior aspect of the liver through the pubic symphysis. Sagittal and coronal reformatted images were obtained on the technologist's workstation. This CT examination was performed using dose optimization techniques as appropriate, variously including the following: *Automated exposure control *Adjustment of mA and/or kV according to patient size (this includes techniques or standardized protocols for targeted exams where dose is matched to indication/reason for exam; i.e. extremities or head) *Use of iterative reconstruction technique DLP: 81 5 mGy-cm FINDINGS: LUNG BASES: The lung apices are clear. Heart size is normal. LIVER, GALLBLADDER, AND BILIARY TREE: The liver is normal in size, shape, and attenuation. No focal hepatic lesion or biliary ductal dilatation is present. The gallbladder has been surgically removed. PANCREAS: Unremarkable. SPLEEN: Unremarkable. ADRENAL GLANDS: Unremarkable. KIDNEYS AND URETERS: The kidneys are normal in size, shape, and attenuation. There is a cortical scarring with small calcification lower pole right kidney. No radiopaque renal calculi or hydronephrosis seen on this noncontrast CT. Inferior to left renal pedicle is a well-defined mixed attenuation mass measuring approximately 37 Hounsfield units with peripheral wall calcification. It measures 3.7 x 3.8 cm and 37 Hounsfield units. BLADDER: Bladder is nondistended.. No bladder wall thickening or radiopaque calculi seen. GASTROINTESTINAL TRACT: There is scattered stool and gas seen throughout the colon without distention. The small bowel loops are normal caliber. Appendix is normal caliber. ABDOMINAL WALL: No significant hernia is appreciated. LYMPH NODES: No abnormal-sized lymph nodes or mass seen. There is a known left retroperitoneal mass as described above. VASCULAR: The abdominal aorta is of normal caliber. The renal arteries are patent. The renal veins are normal caliber. PELVIC VISCERA: There is scattered stool and gas seen in colon without distention. No free air or free fluid. OSSEOUS STRUCTURES: Mild degenerative disc changes with vacuum disc phenomena L5/S1 disc level. There is moderate ventral spondylosis lower dorsal spine. CT/CT abdomen pelvis wo IV con IMPRESSION: No acute intra-abdominal process seen. There is known scarring and calcific and lower pole right kidney. No caliectasis or hydronephrosis seen. The bladder is unremarkable. Left para-aortic mass with peripheral wall calcification is stable. Fleischner guidelines were followed.
[2023-08-11 09:15] VITALS: BP 146/85; PULSE 74; RESP 18; TEMP 37.1; O2SAT 99; BMI 43.0
--- NOTE | 2023-08-11 09:53 | ED_ITS ---
HPI - General Adult General Chief complaint: Abdominal Pain Stated complaint: UTI symptoms Time Seen by Provider: 08/11/23 09:21 Source: patient Mode of arrival: ambulatory Limitations: no limitations History of Present Illness HPI narrative: 57-year-old female with past medical history of diabetes, hypertension, high cholesterol, atrial flutter, hysterectomy presents to ED for increased urinary frequency, dysuria, fever, chills, 1 episode of diarrhea, and fatigue. Patient states symptoms similar to prior UTIs. Patient states having sepsis in the past from UTI. Patient denies any chest pain, shortness of breath, coughing, headache, or dizziness. Patient denies any vaginal bleeding. Patient had hysterectomy last April. Related Data Home Medications Medication Instructions Recorded Confirmed baclofen 10 mg tablet 10 mg PO TID PRN Spasms 04/29/20 08/10/23 cholecalciferol (vitamin D3) 50 50 mcg PO DAILY 04/29/20 08/10/23 mcg (2,000 unit) tablet (Vitamin D3) omeprazole 20 mg tablet,delayed 20 mg PO DAILY@0630 04/29/20 08/10/23 release fluticasone propionate 50 2 spray intranasal DAILY PRN 10/22/21 08/10/23 mcg/actuation nasal Allergy Symptoms spray,suspension atorvastatin 80 mg tablet 80 mg PO BEDTIME 10/27/21 08/10/23 insulin glargine 100 unit/mL (3 8 unit subcut DAILY 11/06/21 08/10/23 mL) subcutaneous pen (Lantus Solostar U-100 Insulin) acetaminophen 650 mg 650 mg PO Q8H PRN fever 01/04/22 08/10/23 tablet,extended release docusate sodium 100 mg capsule 100 mg PO BID PRN Constipation 01/04/22 08/10/23 fluoxetine 20 mg capsule 40 mg PO DAILY 01/04/22 08/10/23 loratadine 10 mg tablet 10 mg PO DAILY PRN Allergy Symptoms 01/04/22 08/10/23 metformin 500 mg tablet,extended 1,000 mg PO BID 01/04/22 08/10/23 release 24 hr sennosides 8.6 mg tablet (senna) 17.2 mg PO BEDTIME PRN constipation 03/08/22 08/10/23 amlodipine 5 mg tablet 5 mg PO DAILY 03/13/23 08/10/23 lisinopril 40 mg tablet 40 mg PO DAILY 03/13/23 08/10/23 magnesium oxide 400 mg PO BEDTIME 07/11/23 08/10/23 trazodone 50 mg tablet 100 mg PO BEDTIME PRN insomnia 07/11/23 08/10/23 Previous Rx's Medication Instructions Recorded rivaroxaban 20 mg tablet (Xarelto) 20 mg PO DAILY@1700 #30 tabs 10/26/21 diclofenac sodium 75 mg 75 mg PO BID PRN pain #60 tabs 08/05/22 tablet,delayed release ertapenem 1 gram solution for 1 g IV DAILY #13 ea 07/14/23 injection diltiazem HCl 30 mg tablet 30 mg PO BID #60 tabs 08/01/23 phenazopyridine 200 mg tablet 200 mg PO TID 2 days #6 tabs 08/11/23 (Pyridium) Allergies Allergy/AdvReac Type Severity Reaction Status Date / Time No Known Allergies Allergy Verified 08/11/23 09:20 [No Known Allergies*] Review of Systems 2 Review of Systems: , increased urinary frequency, dysuria, fever, chills Yes all other systems are reviewed and are negative [facility] Past Medical History Medical History Hospital discharge follow-up New onset atrial flutter Poor historian Encounter for screening colonoscopy Cervical cancer screening Women's annual routine gynecological examination Morbid obesity Bacterial vaginosis Vaginal itching Bladder pain Language barrier History of cardioversion Atrial flutter, paroxysmal On beta pat at home On anticoagulant therapy Atrial fibrillation and flutter Atrial fibrillation Diabetes Essential hypertension Abdominal pain Lab test negative for COVID-19 virus Arthritis Anemia GERD (gastroesophageal reflux disease) Hepatitis Depression Hypercholesteremia Diabetes HTN (hypertension) Surgical History Hx of abdominal surgery Hx of dilation and curettage Hx of excision of mass Hx of section Hx of tubal ligation Hx of reduction mammoplasty Hx of cholecystectomy Hx of gastric bypass Bariatric surgery status Social History Social History Household Members: Children Housing: Apartment Are you a primary furnace caretaker to a significant other at home: No Do you presently have visiting nurse or other home services: No Alcohol intake: never Comment: history-long ago fall when having issues with knees Patient Tobacco Use Status: Never used Tobacco Smoked in Last 30 Days: No e-Cigarette/Vaping Use: Never Used Use of substances other than those prescribed or required for medical reasons: No Advance Directives: No Advance Directives Information Provided: No Advance Directives Date on File: 11/09/21 service: No Current occupational status: disabled Current occupation: rt handed Physical Exam ED Vital Signs: Vital Signs - 24 hr 08/11/23 09:15 Temperature 98.8 F Pulse Rate 74 Respiratory Rate 18 Blood Pressure 146/85 H Pulse Oximetry 99 Oxygen Delivery Method Room Air BMI result Body Mass Index 43.0 Const General: cooperative, healthy appearing, comfortable, no acute distress, well developed, alert, awake and Physically active Orientation/consciousness: oriented to person, oriented to place, oriented to time and patient oriented x3 HENMT Head: Yes normal to inspection, Yes No palpable skull fracture present, Yes normocephalic and Yes atraumatic Eyes General: appearance normal, both eyes and all related structures Neck Neck: Yes normal visual inspection, Yes full ROM, Yes no lymphadenopathy, Yes no meningeal signs, Yes trachea midline, Yes supple, No anterior neck swelling and No tender Chest Chest palpation & inspection: normal inspection of the chest and normal palpation of entire chest wall Resp Effort & Inspection: normal respiratory effort and able to speak in complete sentences Auscultation: clear to auscultation bilaterally Cardio Jugular venous distension: no JVD Heart sounds: S1 normal heart sound present and S2 normal heart sound present GI Inspection: Yes normal to inspection Palpation (GI): Soft to palpation, not firm, nontender, no guarding and not rigid General: No CVA tenderness and Yes no CVA tenderness Back/Spine/Pelvis Back: no CVA tenderness, No CVA tenderness and No back tenderness Skin General skin exam: no rashes or lesions noted, elasticity normal and turgor normal Neuro General: oriented to person, oriented to place, oriented to time, patient oriented x3, gait normal, tone normal, moves all extremities, Normal light touch and pain sensation, no meningeal signs, no focal motor deficits, CN's II-XI intact bilaterally and normal sensation to monofilament Cranial nerves: Yes CN's II-XII intact bilaterally Extrem General: Yes normal to inspection, Yes full ROM and Yes capillary refill normal Psych Appearance: grossly normal, well kempt and not disheveled Medical Decision Making Medical Decision Making [facility] Narrative: 57 female history of diabetes, hypertension, high cholesterol, and atrial flutter presents to ED for dysuria, increased urinary frequency, fever, chills, and fatigue. Labs ordered, urine ordered. 2:51pm: Labs shows blood in urine so patient was sent for abdominal CT scan to rule out kidney stones. CT scan of the abdomen came back normal. Patient does states some vaginal irritation but denies any vaginal discharge or lesions. Patient states she has not sexually active for 5 months. Patient denies any history of STDs. Patient agreeable to pelvic exam which was normal. Chlamydia gonorrhea BV trich sample sent. Patient does not want empiric treatment for STI. Patient is safe for discharge. Patient made aware of left aortic mass. Differential Diagnosis Differential Diagnoses: The differential diagnosis associated with the presentation includes (UTI, pyelonephritis, vaginitis, kidney stone) Admission/Observation Consideration of admission/observation: Escalation of care including admission/observation considered Lab Data [facility] Lab Attestation statement: I reviewed the patient's lab results. 08/11/23 09:35 08/11/23 09:35 Labs: Lab Results 08/11/23 08/11/23 08/11/23 Range/Units 09:35 09:50 14:36 WBC 4.7 L (4.8-10.8) X10*3/uL RBC 3.66 L (4.20-5.50) X10*6/uL Hgb 11.1 L (12.0-16.0) g/dl Hct 33.7 L (37.0-47.0) % MCV 92.1 (80.0-98.0) fL MCH 30.3 (27.0-33.0) pg MCHC 32.9 (31.0-35.0) g/dl RDW 14.6 (11.0-16.0) % Plt Count 267 (160-400) X10*3/uL MPV 8.5 L (9.4-12.3) fL Immature Gran % (Auto) 0.2 (0.0-0.4) % Neut % (Auto) 57.9 (45-73) % Lymph % (Auto) 30.8 (20-40) % Stephens % (Auto) 10.1 (2-11) % Eos % (Auto) 0.6 (0-4) % Baso % (Auto) 0.4 (0-2) % Lymph # (Auto) 1.4 (1.2-4.9) X10*3/uL Stephens # (Auto) 0.5 (0.1-1.2) X10*3/uL Eos # (Auto) 0.0 (0.0-0.4) X10*3/uL Baso # (Auto) 0.0 (0.0-0.2) X10*3/uL Abs Immat Gran (auto) 0.01 (0.00-0.03) X10*3/uL Absolute Neuts (auto) 2.7 (2.0-8.3) x10*3/uL Absolute Nucleated RBC 0.000 (0.0-0.012) X10*3/uL Nucleated RBC % (auto) 0.0 (0.0-0.2) /100WBC Sodium 139 (135-145) mmol/L Potassium 3.5 (3.3-5.1) mmol/L Chloride 107 (96-108) mmol/L Carbon Dioxide 23 (22-29) mmol/L Anion Gap 13 (12-20) BUN 12 (9-16) mg/dL Creatinine 0.83 (0.5-1.4) mg/dL Estim Creat Clear Calc 85.8 Estimated GFR > 60 Random Glucose 175 H (60-115) mg/dL Calcium 9.5 (8.4-10.2) mg/dL Total Bilirubin 0.3 (0.0-1.0) mg/dL AST 27 (5-31) U/L ALT 35 H (0-31) U/L Alkaline Phosphatase 162 H (39-117) U/L Total Protein 7.3 (6.5-8.0) g/dL Albumin 4.0 (3.5-5.0) g/dL Lipase 22 (8-78) U/L Urine Color Dark Yellow Urine Appearance Cloudy Urine pH 5.5 (5.0-9.0) Ur Specific [place] 1.025 (1.005-1.025) Urine Protein 30 (1+) H (Neg-Trace) mg/dL Urine Glucose (UA) Negative (Negative) mg/dL Urine Ketones Trace (Negative) mg/dL Urine Blood Trace H (Negative) Urine Nitrite Negative (Negative) Ur Leukocyte Esterase Trace H (Negative) Urine RBC 6-10 H (0-2) /HPF Urine WBC 0-5 (0-5) /HPF Ur Squamous Epith Cells 11-20 (0-2) /HPF Urine Bacteria Trace (None Seen) Hyaline Casts 0-2 (0-2) /LPF Urine Test NEGATIVE (NEGATIVE) Chlam trachomat DNA PCR NOT DETECTED (Not Detect.) COVID-19 (FRANC) Negative (Negative) COVID-19 Clin Com See Note Influenza Type A (FLAKITA) Negative (Negative) Influenza Type B (FLAKITA) Negative (Negative) Influenza A & B Note See Note N.gonorrhoeae DNA (PCR) NOT DETECTED (Not Detect.) Independent Interpretation I performed an independent interpretation of an: CT Scan Radiology Impression Discussion of test interpretation with radiology: I have reviewed the radiologist's reading. Prescription Management I considered prescription management with: Pain Medication (Prydium) Discharge Plan Discharge Clinical Impression: Abdominal pain, Dysuria Patient Disposition: Home, Self-Care Instructions: Dysuria (ED), Abdominal Pain (ED) Additional Instructions: El dolor de grider an?lisis de john vuelve a la normalidad/valor inicial. La orina result? negativa para infecci?n. Grider tomograf?a computarizada abdominal no mostr? ninguna etiolog?a m?dica/quir?rgica emergente. La tomograf?a computarizada mostr? naima masa paraa?rtica izquierda. Recomendar seguimiento con grider proveedor de atenci?n primaria. Regrese al servicio de urgencias de inmediato si presenta cualquier dolor abdominal, hematuria, disuria, dolor en el costado, fiebre, escalofr?os, dolor en el pecho, dificultad para respirar, n?useas, v?mitos o cualquier otro s?ntoma preocupante. Your blood work pain back normal/baseline. Urine came back negative for infection. Your abdominal CT scan did not show any emergent medical/surgical etiology. CT scan did show Left Para- aortic mass. Recommend follow-up with your primary care provider. Return to the ED immediately for any abdominal pain, hematuria, dysuria, flank pain, fever, chills, chest pain, shortness of breath, nausea, vomiting, or any other concerning symptoms. Prescriptions: New phenazopyridine [Pyridium] 200 mg tablet 200 mg PO TID 2 Days Qty: 6 0RF No Action baclofen 10 mg Tablet 10 mg PO TID PRN (Reason: Spasms) omeprazole 20 mg Tablet,Delayed Release (Dr/Ec) 20 mg PO DAILY@0630 cholecalciferol (vitamin D3) [Vitamin D3] 50 mcg (2,000 unit) Tablet 50 mcg PO DAILY insulin glargine [Lantus Solostar U-100 Insulin] 100 unit/mL (3 mL) insulin pen 8 unit SUBCUT DAILY loratadine 10 mg tablet 10 mg PO DAILY PRN (Reason: Allergy Symptoms) fluticasone propionate 50 mcg/actuation spray,suspension 2 spray intranasal DAILY PRN (Reason: Allergy Symptoms) Xarelto 20 mg Tablet 20 mg PO DAILY@1700 Qty: 30 0RF atorvastatin 80 mg tablet 80 mg PO BEDTIME acetaminophen 650 mg tablet extended release 650 mg PO Q8H PRN (Reason: fever) docusate sodium 100 mg capsule 100 mg PO BID PRN (Reason: Constipation) fluoxetine 20 mg capsule 40 mg PO DAILY metformin 500 mg tablet extended release 24 hr 1,000 mg PO BID sennosides [senna] 8.6 mg tablet 17.2 mg PO BEDTIME PRN (Reason: constipation) trazodone 50 mg tablet 100 mg PO BEDTIME PRN (Reason: insomnia) magnesium oxide 400 mg magnesium tablet 400 mg PO BEDTIME ertapenem 1 gram recon soln 1 g IV DAILY Qty: 13 0RF diltiazem HCl 30 mg tablet 30 mg PO BID Qty: 60 0RF diclofenac sodium 75 mg tablet,delayed release (DR/EC) 75 mg PO BID PRN (Reason: pain) Qty: 60 0RF amlodipine 5 mg tablet 5 mg PO DAILY lisinopril 40 mg tablet 40 mg PO DAILY Stand Alone Forms: Work/School Release Interventions: ED Discharge Assessment Last Done: 08/11/23 16:59 Discharge Date/Time: 08/11/23 17:00 Print Language: Nepali
[2023-08-11 09:57] LABS: Basophils Percent Auto 0.4 % (0-2); Eosinophils Percent Auto 0.6 % (0-4); Hematocrit 33.7 % (37.0-47.0); Hemoglobin 11.1 g/dl (12.0-16.0); Imm Gran Abs Auto 0.01 X10*3/uL (0.00-0.03); Imm Gran Pct Auto 0.2 % (0.0-0.4); Lymphocytes Absolute Auto 1.4 X10*3/uL (1.2-4.9); Lymphocytes Percent Auto 30.8 % (20-40); MANUAL DIFF FLAG NO; Mean Corpuscular HGB Conc 32.9 g/dl (31.0-35.0); Mean Corpuscular Hemoglobin 30.3 pg (27.0-33.0); Mean Corpuscular Volume 92.1 fL (80.0-98.0); Mean Platelet Volume 8.5 fL (9.4-12.3); Monocytes Absolute Auto 0.5 X10*3/uL (0.1-1.2); Monocytes Percent Auto 10.1 % (2-11); Neutrophils Absolute Auto 2.7 x10*3/uL (2.0-8.3); Neutrophils Percent Auto 57.9 % (45-73); Platelet Count 267 X10*3/uL (160-400); Red Blood Count 3.66 X10*6/uL (4.20-5.50); Red Cell Distribution Width 14.6 % (11.0-16.0); White Blood Count 4.7 X10*3/uL (4.8-10.8)
[2023-08-11 09:59] LABS: Appearance Urine Cloudy; Color Urine Dark Yellow; Glucose Urine UA Negative (Negative); Leukocyte Esterase Urine Trace (Negative); Nitrite Urine Negative (Negative); PH 5.5 (5.0-9.0); Specific Gravity - Urine 1.025 (1.005-1.025); UMIC TRIGGER UACC YES; Urine Blood Trace (Negative); Urine Ketones Trace mg/dL (Negative); Urine Protein 30 (1+) mg/dL (Neg-Trace)
[2023-08-11 10:02] LABS: Bacteria Urine Trace (None Seen); Hyaline Casts Urine 0-2 /LPF (0-2); WBC Urine 0-5 /HPF (0-5)
[2023-08-11 10:10] LABS: IDNOW Serial# 152EDE1D; Influenza A Negative (Negative); Influenza B2 Negative (Negative)
[2023-08-11 10:11] LABS: COVID-19 Test Negative (Negative); IDNOW Serial# 08D9AD1C
[2023-08-11 10:27] LABS: Alanine Aminotransferase 35 U/L (0-31); Alkaline Phosphatase 162 U/L (39-117); Anion Gap 13 (12-20); Aspartate Amino Transferase 27 U/L (5-31); Bilirubin Total 0.3 mg/dL (0.0-1.0); Blood Urea Nitrogen 12 mg/dL (9-16); Calcium 9.5 mg/dL (8.4-10.2); Carbon Dioxide 23 mmol/L (22-29); Chloride 107 mmol/L (96-108); Creatinine Clr Calc Pharmacy 85.8; Estimated Glomerular Filt Rate > 60; Glucose Random 175 mg/dL (60-115); Lipase 22 U/L (8-78); Potassium 3.5 mmol/L (3.3-5.1); Sodium 139 mmol/L (135-145); Total Protein 7.3 g/dL (6.5-8.0)
[2023-08-11 15:25] LABS: UPreg QC Valid YES; Urine Pregnancy NEGATIVE (NEGATIVE)
[2023-08-11 16:10] LABS: CT PCR NOT DETECTED (Not Detect.); NG PCR NOT DETECTED (Not Detect.)
[2023-08-12 14:26] LABS: BV Int Neg Control Negative (Negative); BV Int Pos Control Positive (Positive)
== END 2023-08-11 17:00 | disposition home or self-care (01) ==
PROVIDERS: Physician Assistant; Emergency Provider Emergency Medicine; PCP Family Medicine
DX: R30.0 Dysuria (principal); R10.9 Unspecified abdominal pain; N76.0 Acute vaginitis; Z11.52 Encounter for screening for COVID-19; E11.9 Type 2 diabetes mellitus without complications; I10 Essential (primary) hypertension; E78.00 Pure hypercholesterolemia, unspecified; I48.91 Unspecified atrial fibrillation; Z79.01 Long term (current) use of anticoagulants; Z79.02 Long term (current) use of antithrombotics/antiplatelets; Z79.4 Long term (current) use of insulin; Z79.899 Other long term (current) drug therapy
CPT/HCPCS: 0353U; 74176; 80053; 81001; 81003; 81025; 83690; 85025; 87480; 87502; 87510; 87635; 87660; 99284

== ENCOUNTER 2023-08-22 09:18 | Outpatient (AMB) | payer OTHER, SELFPAY ==
--- NOTE | 2023-08-22 09:21 | A.OFFVIS_ITS ---
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 Her daughter, Carole is present for her visit. She is doing well with no concerns. She reports a total hysterectomy at [facility] in April for fibroids, had issues with healing and developed sepsis in July. Attempting to eat a healthy diet with calcium and vitamin D and stays active with walking. Currently not sexually active. Denies any vaginal dryness or irritation. Last pap smear; 2021. Last mammogram; 2022. Colonoscopy is UTD. Denies any family history of breast, ovarian or colon cancer. [facility] Medical History Hospital discharge follow-up New onset atrial flutter Poor historian Encounter for screening colonoscopy Cervical cancer screening Women's annual routine gynecological examination Morbid obesity Bacterial vaginosis Vaginal itching Bladder pain Language barrier History of cardioversion Atrial flutter, paroxysmal On beta pat at home On anticoagulant therapy Atrial fibrillation and flutter Atrial fibrillation Diabetes Essential hypertension Abdominal pain Lab test negative for COVID-19 virus Arthritis Anemia GERD (gastroesophageal reflux disease) Hepatitis Depression Hypercholesteremia Diabetes HTN (hypertension) Surgical History (Updated 08/22/23 @ 09:58 by Rowena Joseph CNM) History of robot-assisted laparoscopic hysterectomy Hx of abdominal surgery Hx of dilation and curettage Hx of excision of mass Hx of section Hx of tubal ligation Hx of reduction mammoplasty Hx of cholecystectomy Hx of gastric bypass Bariatric surgery status Social History Household Members: Children Housing: Apartment Are you a primary healthcare science specialist to a significant other at home: No Do you presently have visiting nurse or other home services: No Alcohol intake: never Comment: history-long ago fall when having issues with knees Patient Tobacco Use Status: Never used Tobacco e-Cigarette/Vaping Use: Never Used Advance Directives Date on File: 11/09/21 service: No Current occupational status: disabled Current occupation: rt handed Female Reproductive History Menstrual Age of Menarche: 11 control method: permanent sterilization Permanent Sterilization: BTL Total pregnancies: 5 Full term: 2 Number of Living Children: 2 Ab spontaneous: 3 Date of last pap smear: 08/16/21 (neg pap and hpv) Date of Mammogram: 12/07/22 (Birad 2) Review of Systems Const All systems reviewed & are unremarkable except as noted in HPI and below Reports as per HPI Eyes Reports no additional complaints ENT Reports no additional complaints Card Reports no additional complaints Resp Reports no additional complaints GI Reports as per HPI and Reports no additional complaints Reports as per HPI Musc Reports no additional complaints Skin/Breast Reports as per HPI Neuro Reports no additional complaints Psych Reports no additional complaints Endo Reports no additional complaints Radu/Lymph Reports no additional complaints Aller/Immun Reports no additional complaints Physical Exam Vital Signs: Last Vital Signs BP 126/76 08/22/23 09:22 BMI result Body Mass Index 41.9 Const General: cooperative, healthy appearing, no acute distress, well developed and alert Orientation/consciousness: patient oriented x3 HEENT Head: Yes normal to inspection Eyes General: appearance normal, both eyes and all related structures Neck Neck: Yes normal visual inspection Thyroid: Thyroid normal Chest Other: Breast reduction scarring Chest palpation & inspection: normal inspection of the chest and other (no puckering, dimpling, peau de orange, retraction, discharge, masses) Breast/axilla inspection: normal inspection of the breasts Breast/axilla palpation: normal palpation of the breasts Resp Effort & Inspection: normal respiratory effort GI Inspection: Yes normal to inspection and Yes scar Palpation (GI): Soft to palpation Rectal Exam - Female: deferred General: Yes bladder normal to palpation External Female Exam: normal external appearance and normal appearance of the urethra Speculum Exam - Vagina: normal appearance of the vagina, normal palpation, normal vaginal discharge and vagina atrophic Speculum Exam - Cervix: Cervix absent (vag cuff, no lesions or nodules) Bimanual exam- vagina & uterus: normal bimanual exam, normal palpation and bladder normal to palpation Bimanual Exam- Adnexa, other: no masses Skin General skin exam: no rashes or lesions noted Rashes: no rashes Neuro General: patient oriented x3 Cognition (Neuro): normal cognition Extrem General: Yes normal to inspection Psych Attitude: cooperative Thought process: Normal thought process present Assessment & Plan Assessment & Plan (1) Encounter for well woman exam with routine gynecological exam: Code(s): Z01.419 - Encounter for gynecological examination (general) (routine) without abnormal findings Plan Discussed: Current recommendations for pap smears per ASCCP guidelines. Breast awareness, periodic self breast exams and yearly mammogram. Maintain a healthy lifestyle, well balanced diet including Calcium 1,200 mg and Vitamin D 600 IU daily, and routine exercise. Patient verbalizes understanding and agrees to the plan of care. She was given opportunity to ask questions and all questions were answered to the best of my ability. RTO in 1 year for annual technical instructor course developer exam. This note is constructed using voice recognition software. While every effort has been made to ensure accuracy, terminal supervisor errors may have been included. Coding Level of Care Code Est Pt Prev Care 40-64y(40608) Diagnoses Encounter for well woman exam with routine gynecological exam Z01.419
[2023-08-22 09:22] VITALS: BP 126/76; BMI 41.9
== END 2023-08-22 09:56 | disposition home or self-care (01) ==
PROVIDERS: Visit Provider Advanced Practice Midwife
DX: Z01.419 Encounter for gynecological examination (general) (routine) without abnormal findings (principal)
CPT/HCPCS: 99396

== ENCOUNTER → 2023-08-22 09:18 | Outpatient (BNVA) | payer OTHER, SELFPAY | PROVIDERS: Visit Provider Advanced Practice Midwife ==

== ENCOUNTER 2023-12-01 13:20 | Outpatient (AMB) | payer OTHER, SELFPAY ==
--- NOTE | 2023-12-01 13:33 | A.OFFVIS_ITS ---
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 PRACTITIONER: Hypersomnia-CONF Intake Note: Patient presents for Hypersomnia.Patient not sleeping well stops breathiunmg when sleeping sleep study showed apnea but she does not own or was given a machine Allergies No Known Allergies [No Known Allergies*] Allergy (Verified 12/01/23 13:40) Medication List - Last Reconciled 12/01/23 by LOVE Reyes acetaminophen ER 650 mg PO Q8H PRN amlodipine 5 mg PO DAILY atorvastatin 80 mg PO BEDTIME baclofen 10 mg PO TID PRN cholecalciferol (vitamin D3) (Vitamin D3) 50 mcg PO DAILY diclofenac sodium 75 mg PO BID PRN diclofenac sodium 1% 1 ea topical QID diltiazem HCl 30 mg PO BID 90 days docusate sodium 100 mg PO BID PRN fluoxetine 40 mg PO DAILY fluticasone propionate 50 mcg/actuation 2 sprays intranasal DAILY PRN insulin glargine (Lantus Solostar U-100 Insulin) 8 units subcut DAILY lisinopril 40 mg PO DAILY loratadine 10 mg PO DAILY PRN magnesium oxide 400 mg PO BEDTIME metformin ER 1,000 mg PO BID metronidazole 500 mg PO BID 7 days omeprazole 20 mg PO DAILY@0630 phenazopyridine (Pyridium) 200 mg PO TID 2 days rivaroxaban (Xarelto) 20 mg PO DAILY@1700 sennosides (senna) 17.2 mg PO BEDTIME PRN trazodone 100 mg PO BEDTIME PRN HPI Comments Details: 57-yr-old female presents for new in-person patient visit for sleep consultation. PMH is notable for anemia, arthritis, atrial flutter, cardiomyopathy, depression, diabetes, headache, GERD, HTN, HLD. Patient reports she underwent HST last year per the advise of cardiology as she has cardiomyopathy and episodes of a-flutter. HST showed mild obstructive sleep apnea with periods of nocturnal hypoxemia. 05/31/2023, HST: AHI 14.1/hr w/ O2 freddy 77%, SpO2 < 90% x's 36.9 min or < 88% x's 5.7 min of 56.6 min. Sleep questionnaire: Have you ever been diagnosed with a sleep disorder? Yes Have you ever had a sleep study in the past? as above Have you ever been treated for a sleep disorder? no Do you take medications for a sleep disorder? on trazodone Do you snore? Yes Do you wake up gasping at night? unsure Do you have episodes of apneas? yes If yes, are they witnessed? yes Do you have episodes of nocturnal chest pain or dyspnea? no Do you have difficulty initiating sleep? yes Do you have difficulty maintaining sleep? yes Do you wake up tired? yes Do you have headaches upon awakening? no Do you wake up with dry mouth or throat? yes Do you have GERD? yes Do you have nocturia? yes Do you have nocturnal leg cramps? yes Do you have symptoms of restless legs? No Do you act out your dreams? no Do you have sleep paralysis? no Do you have drop attacks? no Do you ever have hypnogenic hallucinations? no Do you take naps? no Hypersomnolence questionnaire: Do you have daytime tiredness or fatigue? yes Do you easily fall asleep when inactive? no-more fatigued Have you ever had episodes of sudden weakness? no Have you ever had episodes of sudden weakness associated with strong emotions? no [facility]LY [facility] Medical History (Updated 12/02/23 @ 15:28 by LOVE Reyes) Hospital discharge follow-up New onset atrial flutter Poor historian Encounter for screening colonoscopy Cervical cancer screening Women's annual routine gynecological examination Morbid obesity Bacterial vaginosis Vaginal itching Bladder pain Language barrier History of cardioversion Atrial flutter, paroxysmal On beta pat at home On anticoagulant therapy Atrial fibrillation and flutter Atrial fibrillation Diabetes Essential hypertension Abdominal pain Lab test negative for COVID-19 virus Arthritis Anemia GERD (gastroesophageal reflux disease) Hepatitis Depression Hypercholesteremia Diabetes HTN (hypertension) Surgical History History of robot-assisted laparoscopic hysterectomy Hx of abdominal surgery Hx of dilation and curettage Hx of excision of mass Hx of section Hx of tubal ligation Hx of reduction mammoplasty Hx of cholecystectomy Hx of gastric bypass Bariatric surgery status Social History Household Members: Children Housing: Apartment Are you a primary child care specialist to a significant other at home: No Do you presently have visiting nurse or other home services: No Alcohol intake: never Comment: history-long ago fall when having issues with knees Patient Tobacco Use Status: Never used Tobacco e-Cigarette/Vaping Use: Never Used Advance Directives Date on File: 11/09/21 service: No Current occupational status: disabled Current occupation: rt handed Female Reproductive History Menstrual Age of Menarche: 11 Physical Exam Vital Signs: Last Vital Signs Pulse 80 12/01/23 13:36 BP 140/82 H 12/01/23 13:36 Pulse Ox 98 12/01/23 13:36 Oxygen Delivery Method Room Air 12/01/23 13:36 BMI result Body Mass Index 41.9 Const General: no acute distress Orientation/consciousness: patient oriented x3 HEENT Other: Mallampati stage 4 Resp Effort & Inspection: normal respiratory effort and able to speak in complete sentences Cardio Rate: regular rate Rhythm: regular rhythm Neuro General: patient oriented x3 Psych Mental Status: mental status grossly normal Speech and movement: Clear speech present Attitude: cooperative Assessment & Plan Assessment & Plan (1) Mild obstructive sleep apnea: Code(s): G47.33 - Obstructive sleep apnea (adult) (pediatric) Category: Medical (2) Nocturnal hypoxemia: Code(s): G47.34 - Idiopathic sleep related nonobstructive alveolar hypoventilation Category: Medical Plan Reviewed results of home sleep study, results were consistent with mild degree of obstructive sleep apnea with periods of nocturnal hypoxemia. Reviewed complication of untreated sleep apnea, including but not limited to difficulty controlling cardiovascular risk factors such as atrial flutter, hypertension. Thus, patient advised to start PAP therapy. Reviewed options of starting APAP therapy now versus undergoing follow-up in-lab PAP titration study, patient requests to start on a Pap therapy. Start APAP 4-16 cm H2O nightly greater than 4 hours. APAP order written. Once patient has been using APAP for greater than 1 month, patient is advised to undergo nocturnal pulse oximetry reading x1 night while on APAP tx. Advised patient to use PAP whenever sleeping, with a goal of greater than 4 ho urs per night. Stressed importance of cleaning and changing PAP supplies routinely. Patient to follow-up with us and/or respiratory company with any concerns. Follow-up in 6 months or sooner as needed. Orders: Orders Overnight Pulse Oximetry Today G47.33 - Obstructive sleep apnea (adult) (pediatric), G47.34 - Idiopathic sleep related nonobstructive alveolar hypoventilation Coding Level of Care Code New Pt Level 4 (28572) Diagnoses Mild obstructive sleep apnea G47.33 Nocturnal hypoxemia G47.34
[2023-12-01 13:36] VITALS: BP 140/82; PULSE 80; O2SAT 98; BMI 41.9
== END 2023-12-01 14:40 | disposition home or self-care (01) ==
PROVIDERS: PCP Family Medicine; Visit Provider Nurse Practitioner Family
DX: G47.33 Obstructive sleep apnea (adult) (pediatric) (principal); G47.34 Idiopathic sleep related nonobstructive alveolar hypoventilation
CPT/HCPCS: 99204

== ENCOUNTER → 2023-12-01 13:20 | Outpatient (BNVA) | payer OTHER, SELFPAY | PROVIDERS: PCP Family Medicine; Visit Provider Nurse Practitioner Family | DX: G47.33 Obstructive sleep apnea (adult) (pediatric) (principal); G47.34 Idiopathic sleep related nonobstructive alveolar hypoventilation | CPT/HCPCS: 99202 ==

== ENCOUNTER 2023-12-15 08:48 | Outpatient (REF) | payer OTHER, SELFPAY ==
[2023-12-15 11:29] LABS: Hematocrit 34.6 % (37.0-47.0); Hemoglobin 11.2 g/dl (12.0-16.0); Mean Corpuscular HGB Conc 32.4 g/dl (31.0-35.0); Mean Corpuscular Hemoglobin 29.9 pg (27.0-33.0); Mean Corpuscular Volume 92.3 fL (80.0-98.0); Mean Platelet Volume 9.3 fL (9.4-12.3); Platelet Count 325 X10*3/uL (160-400); Red Blood Count 3.75 X10*6/uL (4.20-5.50); White Blood Count 6.3 X10*3/uL (4.8-10.8)
[2023-12-15 11:54] LABS: Estimated Average Glucose 163 mg/dL; Hemoglobin A1c % 7.3 % (<6.0)
[2023-12-15 11:56] LABS: Alanine Aminotransferase 21 U/L (0-31); Albumin Level 4.2 g/dL (3.5-5.0); Alkaline Phosphatase 99 U/L (39-117); Anion Gap 10 (12-20); Aspartate Amino Transferase 22 U/L (5-31); Bilirubin Direct 0.2 mg/dL (0.0-0.5); Bilirubin Total 0.4 mg/dL (0.0-1.0); Blood Urea Nitrogen 13 mg/dL (9-16); Calcium 9.5 mg/dL (8.4-10.2); Carbon Dioxide 29 mmol/L (22-29); Chloride 106 mmol/L (96-108); Cholesterol 237 mg/dL (<200); Estimated Glomerular Filt Rate > 60; Glucose Random 130 mg/dL (60-115); HDL Cholesterol 66 mg/dL (>40); LDL Cholesterol Calculated 149 mg/dL (<100); Sodium 141 mmol/L (135-145); Total Protein 7.8 g/dL (6.5-8.0); Triglycerides 113 mg/dL (<150)
[2023-12-15 12:10] LABS: Creatinine Urine 65.35 mg/dL; Microalbum/Creatinine Ratio Ur 30.6 ug/mg cr (<30)
[2023-12-15 12:14] LABS: Free T4 (Free Thyroxine) 1.06 ng/dL (0.71-1.85); Thyroid Stimulating Hormone 2.11 uIU/mL (0.32-4.0); Vitamin D 25-OH Total 54.1 ng/mL (>30)
== END 2023-12-15 08:49 | disposition home or self-care (01) ==
LOC: HO.HHCL 08:48
PROVIDERS: Visit Provider Family Medicine
DX: R00.2 Palpitations (principal); Z13.1 Encounter for screening for diabetes mellitus; Z13.89 Encounter for screening for other disorder
CPT/HCPCS: 36415; 80048; 80061; 80076; 82043; 82306; 82570; 83036; 84439; 84443; 85027

== ENCOUNTER 2023-12-18 15:39 | Outpatient (REF) | payer OTHER, SELFPAY ==
--- NOTE | ~2023-12-18 | MM_ITS ---
EXAMINATION: MM SCREENING DIGITAL BREAST TOMOSYNTHESIS, BILATERAL CLINICAL INFORMATION: Screening. Asymptomatic. The patient is status post bilateral breast reduction. COMPARISON: Mammography: This study is compared with prior exams dating back to 2019. TECHNIQUE: Digital breast tomosynthesis is performed in both the craniocaudal and mediolateral oblique views along with computer-aided detection (CAD). Synthesized 2D images are generated from the tomosynthesis. FINDINGS: The breasts are almost entirely fatty (ACR BI-RADS breast composition Category a). There are no significant masses, abnormal calcifications, or other abnormalities. Post reduction changes are present in each breast. MM/MM tomosynthesis screening BI IMPRESSION: No mammographic evidence of malignancy. ASSESSMENT: BI-RADS BI-RADS 2 - Benign Findings RECOMMENDATION: Routine annual mammography screening. 1 year F/U This examination should not preclude the clinical evaluation of a suspicious palpable abnormality. This patient's information was entered into a reminder system with a target due date for their next mammogram.
== END 2023-12-18 15:40 | disposition home or self-care (01) ==
LOC: HO.MAMMO 15:39
PROVIDERS: PCP Family Medicine; Visit Provider Family Medicine
DX: Z12.31 Encounter for screening mammogram for malignant neoplasm of breast (principal)
CPT/HCPCS: 77063; 77067

== ENCOUNTER → 2023-12-18 15:45 | Outpatient (BNV) | payer OTHER, SELFPAY | PROVIDERS: PCP Family Medicine; Visit Provider Radiology Diagnostic Radiology | DX: Z12.31 Encounter for screening mammogram for malignant neoplasm of breast (principal) | CPT/HCPCS: 77063; 77067 ==

== ENCOUNTER 2023-12-20 12:39 | Emergency (ER) | payer OTHER, SELFPAY ==
[2023-12-20] VITALS (7 sets, daily range): BP systolic 139–183; BP diastolic 67–101; PULSE 65–96; RESP 17–20; TEMP -17.7–36.8; O2SAT 98–100; BMI 42.5
--- NOTE | ~2023-12-20 | XR_ITS ---
EXAMINATION: XR CHEST CLINICAL INFORMATION: Palpitations, chest pain. COMPARISON: Chest radiograph 08/13/2022. TECHNIQUE: Frontal view of the chest was obtained. FINDINGS: Normal appearance of the cardiomediastinal silhouette. No focal airspace opacities, pleural effusion or pneumothorax. Right upper quadrant surgical clips. No acute osseous findings. XR/XR chest 1V IMPRESSION: No acute cardiopulmonary findings.
--- NOTE | 2023-12-20 12:40 | ECG_ITS ---
Test Reason : chest pain Blood Pressure : / mmHG Vent. Rate : 094 BPM Atrial Rate : 094 BPM P-R Int : 156 ms QRS Dur : 086 ms QT Int : 332 ms P-R-T Axes : 042 005 051 degrees QTc Int : 415 ms Normal sinus rhythm Minimal voltage criteria for LVH, may be normal variant ( R in aVL ) Borderline ECG When compared with ECG of 01-AUG-2023 12:43, No significant change was found Referred By: Bro Jerez Electronically Signed By:Hugh Nguyen
--- NOTE | 2023-12-20 12:41 | ED_ITS ---
HPI - General Adult General Chief complaint: Arrhythmia/Palpitations Stated complaint: headache rapid heart beat Time Seen by Provider: 12/20/23 14:43 Source: patient, RN notes reviewed and old records reviewed Mode of arrival: ambulatory History of Present Illness ED Provider: Andreina Wheeler PA-C HPI narrative: 58-year-old female with past medical history of sleep apnea, pyelonephritis, cardiomyopathy, HTN, diabetes, on anticoagulation, presenting to the ED complaining of intermittent headache, chest pain, and lightheadedness x3 days. States symptoms worsened today with presyncope/room spinning dizziness. Denies fever, chills, cough, shortness of breath, abdominal pain, nausea/vomiting, vision loss Related Data Home Medications ?Medication ?Instructions ?Recorded ?Confirmed baclofen 10 mg tablet 10 mg PO TID PRN Spasms 04/29/20 12/01/23 cholecalciferol (vitamin D3) 50 50 mcg PO DAILY 04/29/20 12/01/23 mcg (2,000 unit) tablet (Vitamin D3) omeprazole 20 mg tablet,delayed 20 mg PO DAILY@0630 04/29/20 12/01/23 release fluticasone propionate 50 2 spray intranasal DAILY PRN 10/22/21 12/01/23 mcg/actuation nasal Allergy Symptoms spray,suspension atorvastatin 80 mg tablet 80 mg PO BEDTIME 10/27/21 12/01/23 insulin glargine 100 unit/mL (3 8 unit subcut DAILY 11/06/21 12/01/23 mL) subcutaneous pen (Lantus Solostar U-100 Insulin) acetaminophen 650 mg 650 mg PO Q8H PRN fever 01/04/22 12/01/23 tablet,extended release docusate sodium 100 mg capsule 100 mg PO BID PRN Constipation 01/04/22 12/01/23 fluoxetine 20 mg capsule 40 mg PO DAILY 01/04/22 12/01/23 loratadine 10 mg tablet 10 mg PO DAILY PRN Allergy Symptoms 01/04/22 12/01/23 metformin 500 mg tablet,extended 1,000 mg PO BID 01/04/22 12/01/23 release 24 hr sennosides 8.6 mg tablet (senna) 17.2 mg PO BEDTIME PRN constipation 03/08/22 12/01/23 amlodipine 5 mg tablet 5 mg PO DAILY 03/13/23 12/01/23 lisinopril 40 mg tablet 40 mg PO DAILY 03/13/23 12/01/23 magnesium oxide 400 mg PO BEDTIME 07/11/23 12/01/23 trazodone 50 mg tablet 100 mg PO BEDTIME PRN insomnia 07/11/23 12/01/23 diclofenac sodium 1 % topical gel 1 ea topical QID 12/01/23 12/01/23 Previous Rx's ?Medication ?Instructions ?Recorded rivaroxaban 20 mg tablet (Xarelto) 20 mg PO DAILY@1700 #30 tabs 10/26/21 diclofenac sodium 75 mg 75 mg PO BID PRN pain #60 tabs 08/05/22 tablet,delayed release phenazopyridine 200 mg tablet 200 mg PO TID 2 days #6 tabs 08/11/23 (Pyridium) metronidazole 500 mg tablet 500 mg PO BID 7 days #14 tabs 08/14/23 diltiazem HCl 30 mg tablet 30 mg PO BID 90 days #180 tabs 09/05/23 nitrofurantoin 100 mg PO Q12H 7 days #14 caps 12/20/23 monohydrate/macrocrystals 100 mg capsule (Macrobid) Allergies Allergy/AdvReac Type Severity Reaction Status Date / Time No Known Allergies Allergy Verified 12/20/23 12:45 [No Known Allergies*] Review of Systems 2 Review of Systems: Constitutional: No Fever, No Chills ENT/Mouth: No Ear Pain, No Nasal Congestion, No sore throat, No Rhinorrhea, No Swallowing Difficulty Cardiovascular: +Chest Pain, No SOB Respiratory: No Cough, No Sputum, No Wheezing Gastrointestinal: No Nausea, No Vomiting, No Diarrhea, No Constipation, No Abdominal pain Musculoskeletal: No joint pain, No Myalgias, No Joint Swelling Skin: No Skin Lesions, No rash Neuro: No Weakness, No Numbness, No Paresthesias, + lightheadedness,+ room spinning dizziness, +BABB Yes all other systems are reviewed and are negative Constitutional: Constitutional: Reports as per HPI Neurologic: Denies Abnormal speech present PMFSH Past Medical History Attestation statement: The following information was validated with the patient. Source: old records reviewed Medical History Hospital discharge follow-up New onset atrial flutter Poor historian Encounter for screening colonoscopy Cervical cancer screening Women's annual routine gynecological examination Morbid obesity Bacterial vaginosis Vaginal itching Bladder pain Language barrier History of cardioversion Atrial flutter, paroxysmal On beta pat at home On anticoagulant therapy Atrial fibrillation and flutter Atrial fibrillation Diabetes Essential hypertension Abdominal pain Lab test negative for COVID-19 virus Arthritis Anemia GERD (gastroesophageal reflux disease) Hepatitis Depression Hypercholesteremia Diabetes HTN (hypertension) Surgical History History of robot-assisted laparoscopic hysterectomy Hx of abdominal surgery Hx of dilation and curettage Hx of excision of mass Hx of section Hx of tubal ligation Hx of reduction mammoplasty Hx of cholecystectomy Hx of gastric bypass Bariatric surgery status Social History Social History Household Members: Children Housing: Apartment Are you a primary neonatal critical care nurse to a significant other at home: No Do you presently have visiting nurse or other home services: No Alcohol intake: never Comment: history-long ago fall when having issues with knees Patient Tobacco Use Status: Never used Tobacco e-Cigarette/Vaping Use: Never Used Advance Directives: No Advance Directives Information Provided: Yes Advance Directives Date on File: 11/09/21 service: No Current occupational status: disabled Current occupation: rt handed Physical Exam ED Vital Signs: Vital Signs - 24 hr 12/20/23 12:41 12/20/23 14:34 12/20/23 15:51 Temperature 98.3 F 98.1 F 98.2 F Pulse Rate 96 81 71 Respiratory Rate 18 20 17 Blood Pressure 156/67 H 152/81 H 148/69 H Pulse Oximetry 98 99 100 Oxygen Delivery Method Room Air Room Air Room Air 12/20/23 15:56 12/20/23 15:59 12/20/23 16:01 Temperature Pulse Rate 69 65 73 Respiratory Rate Blood Pressure 139/74 151/81 H 183/101 H Pulse Oximetry Oxygen Delivery Method BMI result Body Mass Index 42.5 Const General: cooperative, healthy appearing and no acute distress Orientation/consciousness: patient oriented x3 Limitations: no limitations HENMT Head: Yes normal to inspection and Yes atraumatic Ears: hearing grossly normal bilaterally General nose exam: Normal external nose present Face and sinus: Yes normal facial exam Eyes General: appearance normal, both eyes and all related structures EOM: EOMs intact bilaterally Neck Neck: Yes normal visual inspection and Yes no meningeal signs Resp Effort & Inspection: normal respiratory effort and no respiratory distress Auscultation: clear to auscultation bilaterally Cardio Rate: regular rate Heart sounds: S1 normal heart sound present and S2 normal heart sound present GI Inspection: Yes normal to inspection Palpation (GI): Soft to palpation, nontender, no guarding and not rigid Skin Rashes: no rashes Wounds: no wounds Neuro General: patient oriented x3, gait normal, tone normal, moves all extremities, no meningeal signs, no focal motor deficits and CN's II-XI intact bilaterally Cranial nerves: Yes CN's II-XII intact bilaterally Cognition (Neuro): normal cognition Speech: No Abnormal speech present Gait exam (Neuro): Normal gait present Motor exam (neuro): 5/5 motor strength present throughout, Pronator motor function not present and no tremor noted Extrem General: Yes normal to inspection and Yes no pedal edema Course Course Course Narrative: This is an RME done by SUSANNA Jerez: Additional HPI, ROS, PE not included below will be deferred to primary provider. 58 yo f hx of htn, aflutter on xarelto, cervical radiculopahty, DM presening w/ headache, racing heart and overall feeling unwell since Monday. Was intermittent now is constant. Reports med compliance. Denies fevers, chills, n/d/d, abd pain, vision changes, weakness Appearance: Alert.? Oriented X3.? No acute cardiopulmonary distress distress.? Head: Normocephalic, atraumatic, no step-offs or deformities CVS: Pulses normal.? Respiratory: No respiratory distress.? Abdomen: Soft and nontender.? Skin: ? Normal skin color. Extremities: 5/5 strength to bilateral upper and lower extremities Neuro: Oriented X 3.? No motor deficit.? No sensory deficit. -1521--labs reassuring. Initial troponin negative. CXR unremarkable -1614--troponin x2 negative. UA infected will DC with p.o. Macrobid. Orthostatic vital signs negative. On re-evaluation patient reports symptomatic improvement. Results discussed with patient including worrisome signs and symptoms and strict return precautions, and when to return to the emergency department. They verbalized understanding and feel safe for discharge at this time. Medications Administered Discontinued Medications Generic Name Dose Route Start Last Admin Trade Name Lisset PRN Reason Stop Dose Admin Acetaminophen 650 mg 12/20/23 14:57 12/20/23 15:13 Acetaminophen 325 Mg Tablet PO 12/20/23 14:58 650 mg ONCE ONE Administration Sodium Chloride 1,000 mls @ 999 mls/hr 12/20/23 15:00 12/20/23 16:31 Ns IV 12/20/23 16:00 Infused .Q1H1M PHYLICIA Infusion Meclizine HCl 25 mg 12/20/23 14:57 12/20/23 15:13 Meclizine Hcl 25 Mg Tablet PO 12/20/23 14:58 25 mg ONCE ONE Administration Medical Decision Making Medical Decision Making MDM Narrative: 58-year-old female with past medical history of sleep apnea, pyelonephritis, cardiomyopathy, HTN, diabetes, on anticoagulation, presenting to the ED complaining of intermittent headache, chest pain, and lightheadedness x3 days. On exam vital signs stable, NAD, nontoxic appearing, lungs CTA, no focal neuro deficits. Concern for atypical ACS vs viral illness vs metabolic abnormalities. Low suspicion for CVA/TIA, meningitis/encephalitis or PE/dissection. Plan: EKG, labs, CXR Please refer to course for remaining clinical decision making, interpretation of labs/imaging results, and discussions with consultants and/or family members. Differential Diagnosis Differential Diagnoses: The differential diagnosis associated with the presentation includes As above Admission/Observation Consideration of admission/observation: Escalation of care including admission/observation considered Lab Data [facility] [place] Lab Attestation statement: I reviewed the patient's lab results. 12/20/23 13:00 12/20/23 13:00 Labs: Lab Results 12/20/23 12/20/23 12/20/23 Range/Units 13:00 14:39 15:38 WBC 6.8 (4.8-10.8) X10*3/uL RBC 3.84 L (4.20-5.50) X10*6/uL Hgb 11.5 L (12.0-16.0) g/dl Hct 34.9 L (37.0-47.0) % MCV 90.9 (80.0-98.0) fL MCH 29.9 (27.0-33.0) pg MCHC 33.0 (31.0-35.0) g/dl RDW 13.8 (11.0-16.0) % Plt Count 360 (160-400) X10*3/uL MPV 8.6 L (9.4-12.3) fL Immature Gran % (Auto) 0.3 (0.0-0.4) % Neut % (Auto) 68.0 (45-73) % Lymph % (Auto) 24.3 (20-40) % Dodge % (Auto) 6.8 (2-11) % Eos % (Auto) 0.3 (0-4) % Baso % (Auto) 0.3 (0-2) % Lymph # (Auto) 1.6 (1.2-4.9) X10*3/uL Dodge # (Auto) 0.5 (0.1-1.2) X10*3/uL Eos # (Auto) 0.0 (0.0-0.4) X10*3/uL Baso # (Auto) 0.0 (0.0-0.2) X10*3/uL Abs Immat Gran (auto) 0.02 (0.00-0.03) X10*3/uL Absolute Neuts (auto) 4.6 (2.0-8.3) x10*3/uL Absolute Nucleated RBC 0.000 (0.0-0.012) X10*3/uL Nucleated RBC % (auto) 0.0 (0.0-0.2) /100WBC PT 13.3 (11.1-13.3) SEC INR 1.1 (0.9-1.1) Sodium 143 (135-145) mmol/L Potassium 4.1 (3.3-5.1) mmol/L Chloride 109 H (96-108) mmol/L Carbon Dioxide 27 (22-29) mmol/L Anion Gap 11 L (12-20) BUN 19 H (9-16) mg/dL Creatinine 0.88 (0.5-1.4) mg/dL Estim Creat Clear Calc 79.5 Estimated GFR > 60 Random Glucose 153 H (60-115) mg/dL Calcium 9.9 (8.4-10.2) mg/dL Magnesium 1.6 (1.6-2.6) mg/dL Total Bilirubin 0.4 (0.0-1.0) mg/dL AST 18 (5-31) U/L ALT 17 (0-31) U/L Alkaline Phosphatase 101 (39-117) U/L Troponin I High Sens < 2.7 < 2.7 (<3.5-17.0) ng/L B-Natriuretic Peptide < 10 (<100) pg/mL Total Protein 8.1 H (6.5-8.0) g/dL Albumin 4.3 (3.5-5.0) g/dL Urine Color Dark Yellow Urine Appearance Cloudy Urine pH 5.5 (5.0-9.0) Ur Specific Benld 1.025 (1.005-1.025) Urine Protein 30 (1+) H (Neg-Trace) mg/dL Urine Glucose (UA) Negative (Negative) mg/dL Urine Ketones Trace (Negative) mg/dL Urine Blood Negative (Negative) Urine Nitrite Positive H (Negative) Ur Leukocyte Esterase Small (1+) H (Negative) Urine RBC 0-2 (0-2) /HPF Urine WBC 6-10 H (0-5) /HPF Ur Squamous Epith Cells 3-5 (0-2) /HPF Urine Bacteria 4+ (None Seen) Hyaline Casts 3-5 (0-2) /LPF Independent Interpretation I performed an independent interpretation of an: EKG and Plain X-Ray Radiology Impression Discussion of test interpretation with radiology: I have reviewed the radiologist's reading. External Record Review External record reviewed: Inpatient record, Office record, Outpatient record, Prior outpatient labs, Prior outpatient radiology, Primary care record and Outside ED record Tests considered The following testing was considered but not selected: As above Discharge Plan Discharge Clinical Impression: Acute UTI, Headache, Intermittent chest pain Patient Disposition: Home, Self-Care Instructions: Urinary Tract Infection in Women (DC), Acute Headache (DC), Noncardiac Chest Pain (ED) Additional Instructions: Your blood work is reassuring. Your urine is infected, Macrobid as an antibiotic please take as prescribed Please stay hydrated. Follow up with her doctor If symptoms persist or worsen you constant worsening headache, develop weakness, constant or worsening chest pain/shortness of breath return to the ED Prescriptions: New nitrofurantoin monohyd/m-cryst [Macrobid] 100 mg capsule 100 mg PO Q12H 7 Days Qty: 14 0RF Rx Instructions: must administer with a meal/food No Action diltiazem HCl 30 mg tablet 30 mg PO BID 90 Days Qty: 180 3RF baclofen 10 mg Tablet 10 mg PO TID PRN (Reason: Spasms) omeprazole 20 mg Tablet,Delayed Release (Dr/Ec) 20 mg PO DAILY@0630 cholecalciferol (vitamin D3) [Vitamin D3] 50 mcg (2,000 unit) Tablet 50 mcg PO DAILY insulin glargine [Lantus Solostar U-100 Insulin] 100 unit/mL (3 mL) insulin pen 8 unit SUBCUT DAILY loratadine 10 mg tablet 10 mg PO DAILY PRN (Reason: Allergy Symptoms) fluticasone propionate 50 mcg/actuation spray,suspension 2 spray intranasal DAILY PRN (Reason: Allergy Symptoms) Xarelto 20 mg Tablet 20 mg PO DAILY@1700 Qty: 30 0RF atorvastatin 80 mg tablet 80 mg PO BEDTIME acetaminophen 650 mg tablet extended release 650 mg PO Q8H PRN (Reason: fever) docusate sodium 100 mg capsule 100 mg PO BID PRN (Reason: Constipation) fluoxetine 20 mg capsule 40 mg PO DAILY metformin 500 mg tablet extended release 24 hr 1,000 mg PO BID sennosides [senna] 8.6 mg tablet 17.2 mg PO BEDTIME PRN (Reason: constipation) phenazopyridine [Pyridium] 200 mg tablet 200 mg PO TID 2 Days Qty: 6 0RF metronidazole 500 mg tablet 500 mg PO BID 7 Days Qty: 14 0RF trazodone 50 mg tablet 100 mg PO BEDTIME PRN (Reason: insomnia) magnesium oxide 400 mg magnesium tablet 400 mg PO BEDTIME diclofenac sodium 75 mg tablet,delayed release (DR/EC) 75 mg PO BID PRN (Reason: pain) Qty: 60 0RF amlodipine 5 mg tablet 5 mg PO DAILY lisinopril 40 mg tablet 40 mg PO DAILY diclofenac sodium 1 % gel 1 ea topical QID Referrals: Cynthia aCrson DO [Primary Care Provider] - 5 days Print Language: Amharic
[2023-12-20 13:05] LABS: MANUAL DIFF FLAG NO
[2023-12-20 13:07] LABS: Basophils Percent Auto 0.3 % (0-2); Eosinophils Percent Auto 0.3 % (0-4); Hematocrit 34.9 % (37.0-47.0); Hemoglobin 11.5 g/dl (12.0-16.0); Imm Gran Abs Auto 0.02 X10*3/uL (0.00-0.03); Imm Gran Pct Auto 0.3 % (0.0-0.4); Lymphocytes Absolute Auto 1.6 X10*3/uL (1.2-4.9); Lymphocytes Percent Auto 24.3 % (20-40); Mean Corpuscular Hemoglobin 29.9 pg (27.0-33.0); Mean Corpuscular Volume 90.9 fL (80.0-98.0); Mean Platelet Volume 8.6 fL (9.4-12.3); Monocytes Absolute Auto 0.5 X10*3/uL (0.1-1.2); Monocytes Percent Auto 6.8 % (2-11); Neutrophils Absolute Auto 4.6 x10*3/uL (2.0-8.3); Platelet Count 360 X10*3/uL (160-400); Red Blood Count 3.84 X10*6/uL (4.20-5.50); Red Cell Distribution Width 13.8 % (11.0-16.0); White Blood Count 6.8 X10*3/uL (4.8-10.8)
[2023-12-20 13:12] LABS: INTERNATIONAL NORM RATIO 1.1 (0.9-1.1); Prothrombin Time 13.3 SEC (11.1-13.3)
[2023-12-20 13:22] LABS: Alanine Aminotransferase 17 U/L (0-31); Albumin Level 4.3 g/dL (3.5-5.0); Alkaline Phosphatase 101 U/L (39-117); Anion Gap 11 (12-20); Aspartate Amino Transferase 18 U/L (5-31); Bilirubin Total 0.4 mg/dL (0.0-1.0); Blood Urea Nitrogen 19 mg/dL (9-16); Calcium 9.9 mg/dL (8.4-10.2); Carbon Dioxide 27 mmol/L (22-29); Chloride 109 mmol/L (96-108); Creatinine Clr Calc Pharmacy 79.5; Estimated Glomerular Filt Rate > 60; Glucose Random 153 mg/dL (60-115); Magnesium 1.6 mg/dL (1.6-2.6); Potassium 4.1 mmol/L (3.3-5.1); Sodium 143 mmol/L (135-145); Total Protein 8.1 g/dL (6.5-8.0)
[2023-12-20 13:29] LABS: B Type Natriuretic Peptide < 10 pg/mL (<100)
[2023-12-20 13:38] LABS: Troponin-I High Sensitivity < 2.7 ng/L (<3.5-17.0)
[2023-12-20] MEDS: Meclizine HCl 25 MG TABLET PO (15:13)
[2023-12-20] MEDS: Acetaminophen 325 MG TABLET 650 MG PO (15:13)
[2023-12-20 15:14] LABS: Appearance Urine Cloudy; Color Urine Dark Yellow; Glucose Urine UA Negative (Negative); Leukocyte Esterase Urine Small (1+) (Negative); Nitrite Urine Positive (Negative); PH 5.5 (5.0-9.0); Specific Gravity - Urine 1.025 (1.005-1.025); UMIC TRIGGER UACC YES; Urine Blood Negative (Negative); Urine Ketones Trace mg/dL (Negative); Urine Protein 30 (1+) mg/dL (Neg-Trace)
[2023-12-20] MEDS: 0.9 % Sodium Chloride 1,000 ML 999 ML IV (15:14)
--- NOTE | 2023-12-20 15:14 | PC.NURSE ---
20gIV placed in the right AC - IVF/medication administered per provider order. effectiveness pending.
[2023-12-20 15:22] LABS: Bacteria Urine 4+ (None Seen); RBC Urine 0-2 /HPF (0-2); UACC Culture Trigger YES
--- NOTE | 2023-12-20 15:31 | PC.NURSE ---
tech obtaining repeat trop at this time.
--- NOTE | 2023-12-20 15:55 | PC.NURSE ---
orthostatic vs performed by tech at this time. pt tolerated well.
[2023-12-20 16:01] LABS: Troponin-I High Sensitivity < 2.7 ng/L (<3.5-17.0)
== END 2023-12-20 16:59 | disposition home or self-care (01) ==
PROVIDERS: Physician Assistant; Emergency Provider Emergency Medicine; PCP Family Medicine
DX: N39.0 Urinary tract infection, site not specified (principal); R07.89 Other chest pain; R51.9 Headache, unspecified; I49.9 Cardiac arrhythmia, unspecified; R11.2 Nausea with vomiting, unspecified; R00.2 Palpitations; I10 Essential (primary) hypertension; R06.02 Shortness of breath; Z79.899 Other long term (current) drug therapy
CPT/HCPCS: 36415; 71045; 80053; 81001; 83735; 83880; 84484; 85025; 85610; 87086; 87088; 87186; 93005; 96360; 99284

== ENCOUNTER → 2023-12-20 12:40 | Outpatient (BNV) | payer OTHER, SELFPAY | PROVIDERS: PCP Family Medicine; Visit Provider Internal Medicine Cardiovascular Disease | DX: R07.9 Chest pain, unspecified (principal); R94.31 Abnormal electrocardiogram [ECG] [EKG] | CPT/HCPCS: 93010 ==

== ENCOUNTER → 2023-12-22 08:58 | Outpatient (REF) | payer OTHER, SELFPAY ==
--- NOTE | 2023-12-22 09:02 | CA_ITS ---
Transthoracic Echocardiogram Patient (Last, First, Middle): Ashley Pavon, Gender: Female Date of : 1965 Age: 58 Procedure Date: 12/22/2023 Procedure Type: Transthoracic Echocardiogram Location: OP Height: 157.48 cm Weight: 106.6 kg BSA: 2.05 m2 Heart Rate: bpm BP: 118 / 70 mmHg Personal Service Workers: TO Referring MD: Kenzie Bullock CLAIM SERVICE REPRESENTATIVEGuicho Symptoms: I48.92 - Unspecified atrial flutter Study Quality: Adequate Conclusions: - Normal left ventricular size and systolic function. There is mildly increased left ventricular wall thickness. The visually estimated ejection fraction is between 55-60%. - E/E prime ratio is between 8 and 15 consistent with indeterminate filling pressures. Reduced GLS -16%. - The basal inferior segment is akinetic. - There is mild dilatation of the ascending aorta measuring 3.70 cm. Findings Left Ventricle Normal left ventricular size and systolic function. There is mildly increased left ventricular wall thickness. The visually estimated ejection fraction is between 55-60%. There is evidence of regional wall motion abnormalities. Abnormal diastolic function is noted. Spectral Doppler is indicative of an impaired relaxation filling pattern. E/E prime ratio is between 8 and 15 consistent with indeterminate filling pressures. Reduced GLS -16%. Wall Motion Rest Echo Findings The basal inferior segment is akinetic. Right Ventricle Normal right ventricular cavity size and systolic function. Atria The left atrium is mildly dilated. The right atrium is normal in size. Aortic Valve There is a normal trileaflet aortic valve. There is no aortic valve stenosis. There is no aortic valve regurgitation. Mitral Valve The mitral valve appears normal. There is no mitral valve regurgitation. There is no mitral valve stenosis. Pulmonic Valve The pulmonic valve is normal. There is trace pulmonic valve regurgitation. Tricuspid Valve Normal tricuspid valve structure. There is no tricuspid valve regurgitation. Tricuspid regurgitation envelope is inadequate for calculation of right ventricular systolic pressure. Normal right atrial pressure. Great Vessels There is mild dilatation of the ascending aorta measuring 3.70 cm. The visualized portions of the pulmonary artery and branches are normal. Venous The inferior vena cava is normal in size and collapses greater than 50% with inspiration. Pericardium/Pleural There is no evidence of pericardial effusion. Prior Study Comparison Changes noted compared to prior study dated: 09/21/2022. LVEF 55%, basal inferior akinesis. Measurements 2D Linear Measurements IVSd: 1.15 0.6-0.9/0.6-1.0 cm LVIDd: 4.72 3.9-5.3/4.2-5.9 cm LVIDd Index: 2.30 2.4-3.2/2.2-3.1 cm/m2 LVIDs: 3.49 2.0-3.6 cm LVPWd: 1.07 0.7-1.1 cm LA Diam: 4.00 2.7-3.8/3.0-4.0 cm LAIDs Index: 1.95 1.5-2.3 cm/m2 LV Mass: 238.27 67-162/88-224 g LV Mass Index: 116.23 43-95/49-115 g/m2 LVOT Diam: 2.20 3.0+(-)1.3 cm 2D Systolic Function EF 4C: 47.30 >55% EF 2C: 54.70 >55% EF BiP: 50.70 >55% Mitral Valve MV Pk E: 0.74 MV PK A: 0.96 MV Decel Time: 196.00 E/A: 0.80 E'Lateral: 5.44 E'Medial: 5.44 E/E' Med: 13.50 E/E' Lat: 13.50 PHT: 57.00 MVA PHT: 3.86 Decel [place]kin: 3.76 Aortic Valve AoV Pk Lincoln: 1.49 AoV Mn Lincoln: 1.01 AoV VTI: 0.30 AoV Pk Grad: 9.00 Aov Mn Grad: 5.00 URBANO Cont.VTI: 2.04 LVOT LVOT Pk Lincoln: 0.79 LVOT Mn Lincoln: 0.60 LVOT VTI: 0.16 LVOT Pk Grad: 2.00 LVOT Mn Grad: 2.00 LVOT Diam: 2.20 LVOT Area: 3.80 Diastolic Function MV Pk E: 0.74 MV Pk A: 0.96 E/A: 0.80 E'Medial: 5.44 E/E' Med: 13.50 E' Laterial: 5.44 E/E' Lat: 13.50 Right Ventricle TAPSE (mm): 24.00 TVS' Lincoln: 15.20 Tricuspid Valve RA Press: 3.00 Great Vessels Aorta Sinus of Valsalva: 3.10 2.0-3.5 cm Ao Asc: 3.70 2.1-3.4 cm Ao Arch: 3.30 Updated in Other Vendor System with Status of Final Hugh Nguyen MD electronically signed on 12/23/2023 1:14:57 PM with status of Final
== END ==
LOC: HO.CARD 08:58
PROVIDERS: PCP Family Medicine; Visit Provider Nurse Practitioner Family
DX: I48.92 Unspecified atrial flutter (principal); I42.9 Cardiomyopathy, unspecified
CPT/HCPCS: 93242; 93306

== ENCOUNTER → 2023-12-22 09:02 | Outpatient (BNV) | payer OTHER, SELFPAY | PROVIDERS: PCP Family Medicine; Visit Provider Internal Medicine Cardiovascular Disease | DX: I51.89 Other ill-defined heart diseases (principal); R93.1 Abnormal findings on diagnostic imaging of heart and coronary circulation | CPT/HCPCS: 93306; 93356 ==

== ENCOUNTER → 2023-12-25 10:03 | Outpatient (REF) | payer OTHER, SELFPAY | LOC: HO.CARD 10:03 | PROVIDERS: Visit Provider Nurse Practitioner Family | DX: I48.92 Unspecified atrial flutter (principal) | CPT/HCPCS: 93242 ==

== ENCOUNTER → 2024-01-08 13:44 | Outpatient (REF) | payer OTHER, SELFPAY | LOC: HO.CARD 13:44 | PROVIDERS: PCP Family Medicine; Visit Provider Nurse Practitioner Family | DX: Z13.89 Encounter for screening for other disorder (principal) | CPT/HCPCS: 93242 ==

== ENCOUNTER → 2024-01-26 11:09 | Outpatient (REF) | payer OTHER, SELFPAY ==
--- NOTE | 2024-01-26 11:13 | HM_ITS ---
* Total monitoring time 3 days. * Underlying rhythm is sinus with an average rate of 77/Min. * Rare ventricular ectopy. * Rare supraventricular ectopy. * No significant pauses or AV blocks. * No patient markers or diary events. MTDD
== END ==
LOC: HO.CARD 11:09
PROVIDERS: PCP Family Medicine; Visit Provider Nurse Practitioner Family
DX: I48.92 Unspecified atrial flutter (principal)
CPT/HCPCS: 93242

== ENCOUNTER → 2024-01-26 11:13 | Outpatient (BNV) | payer OTHER, SELFPAY | PROVIDERS: PCP Family Medicine; Visit Provider Internal Medicine | DX: I49.3 Ventricular premature depolarization (principal); I47.10 Supraventricular tachycardia, unspecified | CPT/HCPCS: 93244 ==

== ENCOUNTER → 2024-02-02 08:12 | Outpatient (REF) | payer OTHER, SELFPAY ==
--- NOTE | ~2024-02-02 | NM_ITS ---
Lexiscan Myocardial perfusion study Indication: Abnormal EKG, palpitations, atrial fibrillation Technique: The patient was brought in for a Lexiscan perfusion study on 02/02/2024 and was injected 0.4 mg of Lexiscan intravenously. Within a minute of this injection 30 mCi of sestamibi was given intravenously. Images were obtained using the SPECT gamma camera interlaced with the gating device. Images were obtained in supine position. Resting perfusion study was performed on 02/05/2024. Patient was administered 30 mCi of sestamibi intravenously at rest. Images were then obtained in supine position. Images were processed with the software and compared side to side in short axis, horizontal long axis and vertical long axis views. Total DLP 142mGy-cm. Findings: Raw acquisition reviewed. The stress perfusion study showed reduced tracer uptake in the distal part of inferolateral wall. There is some improvement with CT attenuation correction and hence could have components of diaphragmatic attenuation artifact. The gated study shows reduced LV systolic function with calculated LVEF of 46% but visually appears higher. LV cavity is normal in size. The gated study shows normal wall thickening and contraction of segments. Resting study shows diminished tracer uptake in the distal part of lateral wall. There is improvement with CT attenuation correction and hence could reflect soft tissue attenuation artifact. Gating at rest reveals normal wall motion with ejection fraction at 57%. The findings are consistent with no clear reversible or fixed perfusion defects. NM/NM cardiolite stress test Impression: 1. Myocardial perfusion imaging study shows probably normal myocardial perfusion. 2. Gated LVEF is 46% during stress but visually appears normal. 57% during rest. Correlate with echocardiogram. 3. Transient ischemic dilatation not present. EKG component of the test reported separately.
--- NOTE | 2024-02-02 08:15 | CA_ITS ---
Acquisition Time: 2024-02-02 08:35:03 Total Exercise Time: 00:02:00 Test Indications: Abnormal ECG Medications: SEE H Protocol: LEXISCAN Max HR: 129 BPM 79% of Pred: 162 BPM Max BP: 134/070 mmHG Max Work Load: 1.0 METS Pharmacological stress test with Lexiscan injection while sitting, without anginal symptoms, without arrhythmias, with normotensive response to injection, with nondiagnsoiiutic EKGs. Nuclear images pending. Test reviewed with Dr. Nguyen. Referred By: Kenzie Bullock Overread By: Dasha Santizo
== END ==
LOC: HO.CARD 08:12
PROVIDERS: PCP Family Medicine; Visit Provider Nurse Practitioner Family
DX: I42.9 Cardiomyopathy, unspecified (principal); I48.92 Unspecified atrial flutter; R93.1 Abnormal findings on diagnostic imaging of heart and coronary circulation
CPT/HCPCS: 78452; 93017; A9500; J0280; J2785

== ENCOUNTER → 2024-02-02 08:15 | Outpatient (BNV) | payer OTHER, SELFPAY | PROVIDERS: PCP Family Medicine; Visit Provider Nurse Practitioner | DX: R94.31 Abnormal electrocardiogram [ECG] [EKG] (principal); R00.2 Palpitations; I48.91 Unspecified atrial fibrillation | CPT/HCPCS: 78452; 93016; 93018 ==

== ENCOUNTER 2024-02-08 08:57 | Outpatient (AMB) | payer OTHER, SELFPAY ==
[2024-02-08 09:11] VITALS: BP 136/82; PULSE 95; BMI 42.3
--- NOTE | 2024-02-08 09:11 | A.OFFVIS_ITS ---
Vital Signs 02/08/24 09:11 Height 5 ft 2 in Weight 231 lb 7.766 oz BMI 42.3 BP 136/82 Blood Pressure Location Lt radial Pulse 95 Pulse Source Pulse Oximeter Intake Visit Reasons: f/up after holter Manager Emergency Department Required: Yes Manager Emergency Department Language: Film Coater Name: [id number] Allergies No Known Allergies [No Known Allergies*] Allergy (Verified 02/08/24 09:14) Medication List - Last Reconciled 02/08/24 by GAVIN Rangel acetaminophen ER 650 mg PO Q8H PRN amlodipine 5 mg PO DAILY atorvastatin 80 mg PO BEDTIME baclofen 10 mg PO TID PRN cholecalciferol (vitamin D3) (Vitamin D3) 50 mcg PO DAILY diclofenac sodium 75 mg PO BID PRN diclofenac sodium 1% 1 ea topical QID diltiazem HCl 30 mg PO BID 90 days docusate sodium 100 mg PO BID PRN fluoxetine 40 mg PO DAILY fluticasone propionate 50 mcg/actuation 2 sprays intranasal DAILY PRN insulin glargine (Lantus Solostar U-100 Insulin) 8 units subcut DAILY lisinopril 40 mg PO DAILY loratadine 10 mg PO DAILY PRN magnesium oxide 400 mg PO BEDTIME metformin ER 1,000 mg PO BID metronidazole 500 mg PO BID 7 days nitrofurantoin monohyd/m-cryst 100 mg (Macrobid) 100 mg PO Q12H 7 days omeprazole 20 mg PO DAILY@0630 phenazopyridine (Pyridium) 200 mg PO TID 2 days rivaroxaban (Xarelto) 20 mg PO DAILY@1700 sennosides (senna) 17.2 mg PO BEDTIME PRN trazodone 100 mg PO BEDTIME PRN HPI HPI f/up after holter: Details: Ashley is a 58-year-old female past medical history of morbid obesity, hypertension, hyperlipidemia, diabetes, nonischemic cardiomyopathy, bradycardia, atrial fibrillation/flutter who presents for follow-up after recent echocardiogram, stress test and Holter monitor. Today she reports she has been doing well with no concerning symptoms. She has felt some brief palpitations lasting seconds. No sustained rapid rates. No chest discomfort at rest or with activity. No concerning shortness of breath, PND, orthopnea or edema. No lightheadedness, presyncope, syncope, falls. She is taking all her meds as directed. Certified 3rd mate used. [facility] Medical History Hospital discharge follow-up New onset atrial flutter Poor historian Encounter for screening colonoscopy Cervical cancer screening Women's annual routine gynecological examination Morbid obesity Bacterial vaginosis Vaginal itching Bladder pain Language barrier History of cardioversion Atrial flutter, paroxysmal On beta pat at home On anticoagulant therapy Atrial fibrillation and flutter Atrial fibrillation Diabetes Essential hypertension Abdominal pain Lab test negative for COVID-19 virus Arthritis Anemia GERD (gastroesophageal reflux disease) Hepatitis Depression Hypercholesteremia Diabetes HTN (hypertension) Surgical History History of robot-assisted laparoscopic hysterectomy Hx of abdominal surgery Hx of dilation and curettage Hx of excision of mass Hx of section Hx of tubal ligation Hx of reduction mammoplasty Hx of cholecystectomy Hx of gastric bypass Bariatric surgery status Social History Household Members: Children Housing: Apartment Are you a primary rn progressive care to a significant other at home: No Do you presently have visiting nurse or other home services: No Alcohol intake: never Comment: history-long ago fall when having issues with knees Patient Tobacco Use Status: Never used Tobacco e-Cigarette/Vaping Use: Never Used Advance Directives Date on File: 11/09/21 service: No Current occupational status: disabled Current occupation: rt handed Female Reproductive History Menstrual Age of Menarche: 11 Review of Systems Const All systems reviewed & are unremarkable except as noted in HPI and below ENT Denies dizziness Card Details: brief palpitations at times Denies chest pain, Denies chest pain at rest, Denies chest pain with activity, Denies rapid heart rate, Denies pedal edema, Denies edema, Denies leg edema, Denies lightheadedness, Denies palpitations, Denies dyspnea, Denies dyspnea on exertion and Denies orthopnea Resp Denies cough, Denies dyspnea and Denies dyspnea on exertion GI Denies hematochezia and Denies change in stool character Musc Denies abnormal gait, Denies limited range of motion, Denies muscle cramps, Denies muscle weakness, Denies numbness, Denies radiating pain into limb, Denies stiffness and Denies tingling Neuro Denies abnormal gait, Denies dizziness, Denies numbness and Denies tingling Endo Denies palpitations Physical Exam Vital Signs: Last Vital Signs Pulse 95 02/08/24 09:11 BP 136/82 02/08/24 09:11 BMI result Body Mass Index 42.3 Const General: cooperative, healthy appearing, comfortable and no acute distress Orientation/consciousness: patient oriented x3 Neck Neck: Yes normal visual inspection and Yes no JVD Resp Effort & Inspection: normal respiratory effort Auscultation: clear to auscultation bilaterally, no rales, no rhonchi and no wheezes Cardio Jugular venous distension: no JVD Rate: regular rate Rhythm: regular rhythm Heart sounds: S1 normal heart sound present, S2 normal heart sound present, no murmurs and no rubs Neuro General: patient oriented x3 Extrem General: Yes normal to inspection and No no pedal edema Psych Appearance: grossly normal Mental Status: mental status grossly normal Speech and movement: Normal speech and movement present Assessment & Plan Assessment & Plan (1) Atrial flutter: Code(s): I48.92 - Unspecified atrial flutter Category: Medical Plan: History of atrial fibrillation/flutter. She had been on metoprolol for heart rate control and had sinus bradycardia so it was discontinued. She has been on Xarelto for anticoagulation. On 08/01/2023 she presented to the emergency room with palpitations. EMS had treated her with diltiazem IV. A 2nd dose was given in the emergency room with control of her heart rate and she converted to sinus rhythm. She was then started on diltiazem 30 mg b.i.d. to help prevent recurrent atrial flutter. Holter monitor was done on 01/26/2024 for 3 days showing sinus rhythm with average heart rate 77, rare SVE andVE. Today she reports brief palpitations lasting seconds. Pulse is regular on examination today. Will continue her on low-dose diltiazem. May need to increase dose if she does have issues with increasing palpitations. She continues on Xarelto. No bleeding issues reported. Cardiology follow-up 6 months, sooner if needed. (2) Cardiomyopathy: Code(s): I42.9 - Cardiomyopathy, unspecified Category: Medical Plan: Echocardiogram done on 10/25/2021 showed EF 40-45%, no valve abnormalities. Nuclear stress test done on 11/23/2021 shows normal myocardial perfusion imaging, EF 46%. Cardiomyopathy was thought to be related to the atrial fibrillation/flutter however she has mostly maintained sinus rhythm. Echo 08/2022 showed EF 45-50%. Echocardiogram was done again on 12/22/2023 showing EF 55-60%, basal inferior akinetic, ascending aorta 3.7 cm. Due to the wall motion abnormality she underwent a pharmacological nuclear stress test on 02/05/2024 showing probable normal myocardial perfusion imaging. On exam today she has no signs of decompensated heart failure. Continue low-dose diltiazem. Continue lisinopril. Labs done 12/30/2023 showed potassium 4.1, creatinine 0.88. No med changes today. s/s HF discussed. (3) HTN (hypertension): Code(s): I10 - Essential (primary) hypertension Category: Medical Plan: Well controlled at present. No med changes made (4) On anticoagulant therapy: Comment: Xarelto Code(s): Z79.01 - superintendent terminal (current) use of anticoagulants Category: Medical Plan: On Xarelto for stroke risk reduction with AFib, no bleeding issues reported. (5) Sleep apnea: Code(s): G47.30 - Sleep apnea, unspecified Category: Medical Plan: Sleep study done 05/31/2023 shows [id number] obstructive sleep apnea, oxygen saturation below 88% for 6 minutes. She has been seen by sleep medicine and has since started on CPAP. Plan Time spent on chart review, documentation, interview and assessment Coding Level of Care Code Est Pt Level 3 (67178) Diagnoses Atrial flutter I48.92 Cardiomyopathy I42.9 HTN (hypertension) I10 On anticoagulant therapy Z79.01 Sleep apnea G47.30 Time Spent (min) 24
== END 2024-02-08 09:35 | disposition home or self-care (01) ==
PROVIDERS: PCP Family Medicine; Visit Provider Nurse Practitioner Family
DX: I48.92 Unspecified atrial flutter (principal); I42.9 Cardiomyopathy, unspecified; I10 Essential (primary) hypertension; Z79.01 Long term (current) use of anticoagulants; G47.30 Sleep apnea, unspecified
CPT/HCPCS: 99213

== ENCOUNTER → 2024-02-08 08:57 | Outpatient (BNVA) | payer OTHER, SELFPAY | PROVIDERS: PCP Family Medicine; Visit Provider Nurse Practitioner Family | DX: I48.92 Unspecified atrial flutter (principal); I42.9 Cardiomyopathy, unspecified; I10 Essential (primary) hypertension; G47.30 Sleep apnea, unspecified; Z79.01 Long term (current) use of anticoagulants | CPT/HCPCS: 99212 ==

== ENCOUNTER 2024-04-05 08:52 | Outpatient (REF) | payer OTHER, SELFPAY ==
[2024-04-05 13:07] LABS: Alanine Aminotransferase 21 U/L (0-31); Albumin Level 4.3 g/dL (3.5-5.0); Alkaline Phosphatase 118 U/L (39-117); Aspartate Amino Transferase 22 U/L (5-31); Bilirubin Direct 0.3 mg/dL (0.0-0.5); Bilirubin Total 0.5 mg/dL (0.0-1.0); Cholesterol 128 mg/dL (<200); HDL Cholesterol 42 mg/dL (>40); LDL Cholesterol Calculated 70 mg/dL (<100); Total Protein 7.7 g/dL (6.5-8.0); Triglycerides 84 mg/dL (<150)
== END 2024-04-05 08:53 | disposition home or self-care (01) ==
LOC: HO.HHCL 08:52
PROVIDERS: Visit Provider Family Medicine
DX: E78.49 Other hyperlipidemia (principal)
CPT/HCPCS: 36415; 80061; 80076

== ENCOUNTER 2024-05-20 17:47 | Outpatient (REF) | payer OTHER, SELFPAY | END 2024-05-20 17:48 | disposition home or self-care (01) | LOC: HO.HHCLNP 17:47 | PROVIDERS: Visit Provider Internal Medicine | DX: R30.0 Dysuria (principal) | CPT/HCPCS: 87086; 87088; 87186 ==

== ENCOUNTER 2024-06-09 10:23 | Emergency (ER) | payer OTHER, SELFPAY ==
--- NOTE | ~2024-06-09 | XR_ITS ---
EXAMINATION: XR SHOULDER, RIGHT CLINICAL INFORMATION: Right shoulder pain COMPARISON: Right shoulder radiograph 05/05/2023. TECHNIQUE: AP external rotation, Grashey, scapular Y, and axillary views of the right shoulder. FINDINGS: No acute fracture or dislocation. Glenohumeral and acromioclavicular alignment is anatomic with normal joint space. No acute soft tissue abnormality. No abnormal soft tissue calcifications. XR/XR shoulder RT min 2V IMPRESSION: No acute fracture or dislocation. Electronically signed by: Jose Angel Izaguirre MD 06/09/2024 12:53 PM [facility]
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
[2024-06-09 10:31] VITALS: BP 153/69; PULSE 77; RESP 18; TEMP 36.3; O2SAT 98; BMI 42.5
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
[2024-06-09 14:11] VITALS: BP 153/69; PULSE 77; RESP 18; TEMP 36.3; O2SAT 98
== END 2024-06-09 14:11 | disposition home or self-care (01) ==
PROVIDERS: Emergency Provider Emergency Medicine Emergency Medical Services; PCP Family Medicine
DX: S39.92XA Unspecified injury of lower back, initial encounter (principal); S49.91XA Unspecified injury of right shoulder and upper arm, initial encounter; M51.34 Other intervertebral disc degeneration, thoracic region; M25.511 Pain in right shoulder; V43.52XA Car driver injured in collision with other type car in traffic accident, initial encounter; Y93.89 Activity, other specified; Y92.488 Other paved roadways as the place of occurrence of the external cause; Y99.8 Other external cause status; Z79.899 Other long term (current) drug therapy
CPT/HCPCS: 72072; 73030; 99283

== ENCOUNTER 2024-06-19 13:11 | Outpatient (AMB) | payer OTHER, SELFPAY ==
[2024-06-19 13:22] VITALS: BP 122/76; PULSE 77; O2SAT 98; BMI 42.2
--- NOTE | 2024-06-19 13:22 | A.OFFVIS_ITS ---
Vital Signs 06/19/24 13:22 Height 5 ft 2 in Weight 231 lb BMI 42.2 BP 122/76 Blood Pressure Location Lt brachial Position Sitting Pulse 77 Pulse Source Pulse Oximeter Pulse Oximetry (%) 98 Oxygen Delivery Method Room Air Intake Visit Reasons: 7 month f/u Intake Note: Pt presents to the office today for a 7 month follow up. Pt states she is doing well and is interested in getting a CPAP machine. Allergies No Known Allergies [No Known Allergies*] Allergy (Verified 06/19/24 13:25) Medication List - Last Reconciled 06/19/24 by LOVE Reyes acetaminophen ER 650 mg PO Q8H PRN amlodipine 5 mg PO DAILY atorvastatin 80 mg PO BEDTIME baclofen 10 mg PO TID PRN cholecalciferol (vitamin D3) (Vitamin D3) 50 mcg PO DAILY diclofenac sodium 75 mg PO BID PRN diclofenac sodium 1% 1 ea topical QID diltiazem HCl 30 mg PO BID 90 days docusate sodium 100 mg PO BID PRN dulaglutide (Trulicity) mg subcut fluoxetine 40 mg PO DAILY fluticasone propionate 50 mcg/actuation 2 sprays intranasal DAILY PRN insulin glargine (Lantus Solostar U-100 Insulin) 8 units subcut DAILY lisinopril 40 mg PO DAILY loratadine 10 mg PO DAILY PRN magnesium oxide 400 mg PO BEDTIME metformin ER 1,000 mg PO BID omeprazole 20 mg PO DAILY@0630 rivaroxaban (Xarelto) 20 mg PO DAILY@1700 sennosides (senna) 17.2 mg PO BEDTIME PRN trazodone 100 mg PO BEDTIME PRN HPI Comments Details: 57-yr-old female presents for f/u of MARIANGEL w/ PMH is notable for anemia, arthritis, atrial flutter, cardiomyopathy, depression, diabetes, headache, GERD, HTN, HLD. Patient reports she underwent HST last year per the advise of cardiology as she has cardiomyopathy and episodes of a-flutter. HST showed mild obstructive sleep apnea with periods of nocturnal hypoxemia. 05/31/2023, HST: AHI 14.1/hr w/ O2 freddy 77%, SpO2 < 90% x's 36.9 min or < 88% x's 5.7 min of 56.6 min. Pt states she did not receive the APAP machine or nocturnal pulse oximetry study ordered at last visit. Patient states she never heard from the respiratory company. I confirmed contact information, her listed phone numbers correct. Patient states she would like to try Pap therapy, as she continues to have snoring, apneas, sleep difficulties, and daytime sleepiness. Initial sleep questionnaire from 12/01/23: Sleep questionnaire: Have you ever been diagnosed with a sleep disorder? Yes Have you ever had a sleep study in the past? as above Have you ever been treated for a sleep disorder? no Do you take medications for a sleep disorder? on trazodone Do you snore? Yes Do you wake up gasping at night? unsure Do you have episodes of apneas? yes If yes, are they witnessed? yes Do you have episodes of nocturnal chest pain or dyspnea? no Do you have difficulty initiating sleep? yes Do you have difficulty maintaining sleep? yes Do you wake up tired? yes Do you have headaches upon awakening? no Do you wake up with dry mouth or throat? yes Do you have GERD? yes Do you have nocturia? yes Do you have nocturnal leg cramps? yes Do you have symptoms of restless legs? No Do you act out your dreams? no Do you have sleep paralysis? no Do you have drop attacks? no Do you ever have hypnogenic hallucinations? no Do you take naps? no Hypersomnolence questionnaire: Do you have daytime tiredness or fatigue? yes Do you easily fall asleep when inactive? no-more fatigued Have you ever had episodes of sudden weakness? no Have you ever had episodes of sudden weakness associated with strong emotions? no [facility] Medical History Hospital discharge follow-up New onset atrial flutter Poor historian Encounter for screening colonoscopy Cervical cancer screening Women's annual routine gynecological examination Morbid obesity Bacterial vaginosis Vaginal itching Bladder pain Language barrier History of cardioversion Atrial flutter, paroxysmal On beta pat at home On anticoagulant therapy Atrial fibrillation and flutter Atrial fibrillation Diabetes Essential hypertension Abdominal pain Lab test negative for COVID-19 virus Arthritis Anemia GERD (gastroesophageal reflux disease) Hepatitis Depression Hypercholesteremia Diabetes HTN (hypertension) Surgical History History of robot-assisted laparoscopic hysterectomy Hx of abdominal surgery Hx of dilation and curettage Hx of excision of mass Hx of section Hx of tubal ligation Hx of reduction mammoplasty Hx of cholecystectomy Hx of gastric bypass Bariatric surgery status Social History Household Members: Children Housing: Apartment Are you a primary animal caretaker supervisor to a significant other at home: No Do you presently have visiting nurse or other home services: No Alcohol intake: never Comment: history-long ago fall when having issues with knees Patient Tobacco Use Status: Never used Tobacco e-Cigarette/Vaping Use: Never Used Advance Directives Date on File: 11/09/21 service: No Current occupational status: disabled Current occupation: rt handed Female Reproductive History Menstrual Age of Menarche: 11 Physical Exam Vital Signs: Last Vital Signs Pulse 77 06/19/24 13:22 BP 122/76 06/19/24 13:22 Pulse Ox 98 06/19/24 13:22 Oxygen Delivery Method Room Air 06/19/24 13:22 BMI result Body Mass Index 42.2 Const General: no acute distress Orientation/consciousness: patient oriented x3 HEENT Other: Mallampati stage 4 Resp Effort & Inspection: normal respiratory effort and able to speak in complete sentences Cardio Rate: regular rate Rhythm: regular rhythm Neuro General: patient oriented x3 Psych Mental Status: mental status grossly normal Speech and movement: Clear speech present Attitude: cooperative Assessment & Plan Assessment & Plan (1) Mild obstructive sleep apnea: Code(s): G47.33 - Obstructive sleep apnea (adult) (pediatric) Category: Medical (2) Nocturnal hypoxemia: Code(s): G47.34 - Idiopathic sleep related nonobstructive alveolar hypoventilation Category: Medical Plan Reviewed results of 05/22/2023 home sleep study, results were consistent with mild degree of obstructive sleep apnea with periods of nocturnal hypoxemia. As last sleep study was greater than 1 year ago, will initiate an order for a follow-up sleep study. Offered patient to undergo in-lab sleep study, however patient declines at this time, as she is worried she will not sleep outside of her home. Patient is again advised to start APAP 4-16 cm H2O nightly greater than 4 hours. APAP order trwritten. Once patient has been using APAP for greater than 1 month, patient is again advised to undergo nocturnal pulse oximetry reading x1 night while on APAP tx. Advised patient to use PAP whenever sleeping, with a goal of greater than 4 hours per night. Stressed importance of cleaning and changing PAP supplies routinely. Straighten importance of using distilled water in her Pap water reservoir. Patient to follow-up with us and/or respiratory company with any concerns. Will follow-up upon review of above and patient to follow-up in clinic in 6 months or sooner prn. Orders: Orders RT home sleep study Today G47.33 - Obstructive sleep apnea (adult) (pediatric), G47.34 - Idiopathic sleep related nonobstructive alveolar hypoventilation Coding Level of Care Code Est Pt Level 3 (31907) Diagnoses Mild obstructive sleep apnea G47.33 Nocturnal hypoxemia G47.34
== END 2024-06-19 14:10 | disposition home or self-care (01) ==
PROVIDERS: PCP Family Medicine; Visit Provider Nurse Practitioner Family
DX: G47.33 Obstructive sleep apnea (adult) (pediatric) (principal); G47.34 Idiopathic sleep related nonobstructive alveolar hypoventilation
CPT/HCPCS: 99213

== ENCOUNTER → 2024-06-19 13:11 | Outpatient (BNVA) | payer OTHER, SELFPAY | PROVIDERS: PCP Family Medicine; Visit Provider Nurse Practitioner Family | DX: G47.33 Obstructive sleep apnea (adult) (pediatric) (principal); G47.34 Idiopathic sleep related nonobstructive alveolar hypoventilation | CPT/HCPCS: 99212 ==

== ENCOUNTER → 2024-08-05 13:52 | Outpatient (REF) | payer OTHER, SELFPAY ==
--- OUTSIDE RECORDS SUMMARY | 2024-08-05 15:24 | XMS_ITS | Clinical Summary ---
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 [facility] ? [address] ?[place] [address] ? Mammography Report ? Signed ? Patient: Pavon,Ashley ?MR#: [id number] ?? [id number] ? : 1965 ?Acct:[id number] ? Age/Sex: 58 / F ?ADM Date: 12/18/23 ? Loc: HO.MAMMO ? Attending Dr: Cynthia Carson DO ? Ordering Physician: Cynthia Carson DO ?Results: 2B ?? enign Findings ? Date of Service: 12/18/23 ?Follow Up: 1 Year From Orig ?? inal Mammogram ? Procedure(s): MM tomosynthesis screening BI ?? Accession Number(s): [id number] ? cc: Cynthia Carson DO ? EXAMINATION: ?? MM SCREENING DIGITAL BREAST TOMOSYNTHESIS, BILATERAL ? CLINICAL INFORMATION: ? Screening. Asymptomatic. ? The patient is status post bilateral breast reduction. ? COMPARISON: ?? Mammography: This study is compared with prior exams dating back to ?? 2019. ? TECHNIQUE: ?? Digital breast tomosynthesis is performed in both the craniocaudal and ?? mediolateral oblique views along with computer-aided detection (CAD). ?? Synthesized 2D images are generated from the tomosynthesis. ? FINDINGS: ?? The breasts are almost entirely fatty (ACR BI-RADS breast composition ?? Category a). ? There are no significant masses, abnormal calcifications, or other ?? abnormalities. ? Post reduction changes are present in each breast. ? MM/MM tomosynthesis screening BI ?? IMPRESSION: ?? No mammographic evidence of malignancy. ? ASSESSMENT: ? BI-RADS BI-RADS 2 - Benign Findings ? RECOMMENDATION: ?? Routine annual mammography screening. ? 1 year F/U ? This examination should not preclude the clinical evaluation of a ?? suspicious palpable abnormality. ? This patient's information was entered into a reminder system with a ?? target due date for their next mammogram. ? Dictated By: ?Maria Dolores Hackett MD ? Signed By: ?<Electronically signed by Maria Dolores Hackett MD in OV> ? 01/15/24 1627 ? DD/ 1600 ? TD/TT: ? Dinkey Engine Operator: ? Procedure Note Connercarlitojesus albertoandrae, Image - 01/15/2024 [place] [facility] [address] [place] [address] Mammography Report Signed Patient: Ashley PavonMR#: [id number] : 1965Acct:[id number] Age/Sex: 58 / FADM Date: 12/18/23 Loc: [facility] Attending Dr: Cynthia Carson DO Ordering Physician: Cynthia Carsonults: 2B enign Findings Date of Service: 12/18/23Follow Up: 1 Year From Orig inal Mammogram Procedure(s): MM tomosynthesis screening BI Accession Number(s): [id number] cc: Cynthia Carson DO EXAMINATION: MM SCREENING DIGITAL BREAST TOMOSYNTHESIS, BILATERAL CLINICAL INFORMATION: Screening. Asymptomatic. The patient is status post bilateral breast reduction. COMPARISON: Mammography: This study is compared with prior exams dating back to 2019. TECHNIQUE: Digital breast tomosynthesis is performed in both the craniocaudal and mediolateral oblique views along with computer-aided detection (CAD). Synthesized 2D images are generated from the tomosynthesis. FINDINGS: The breasts are almost entirely fatty (ACR BI-RADS breast composition Category a). There are no significant masses, abnormal calcifications, or other abnormalities. Post reduction changes are present in each breast. MM/MM tomosynthesis screening BI IMPRESSION: No mammographic evidence of malignancy. ASSESSMENT: BI-RADS BI-RADS 2 - Benign Findings RECOMMENDATION: Routine annual mammography screening. 1 year F/U This examination should not preclude the clinical evaluation of a suspicious palpable abnormality. This patient's information was entered into a reminder system with a target due date for their next mammogram. Dictated By: Maria Dolores Hackett MD Signed By: <Electronically signed by Maria Dolores Hackett MD in OV> 01/15/24 1627 DD/ 1600 TD/TT: Dinkey Engine Operator: Cynthia Carson DO IMG BI PROCEDURES Final Resu lt * (ABNORMAL) Albumin, Random Urine W/Creatinine (12/15/2023 8:50 AM EDT) Creatinine, Urine 65.35 mg/dL [facility] Microalbumin Urine 20.0 mg/L H [facility] Microalbum Creatinine Ratio Ur 30.6(H) <30 ug/mg cr [facility] Comment:Albumin/Creatinine R atio Reference Ranges: Normal: < 30 ug/mg creatinine Microalbuminuria: 30 - 300 ug/mg creatinineClinical Albuminuria: > 300 ug/mg creatinine Urine (Urine, Random) 12/15/2023 8:50 AM EDT 12/15/2023 11:11 AM EDT Cynthia Carson DO LAB URINE ORDERABLES Final R esult [facility] [address] [place] [address] [phone] * Pap Smear (08/13/2021 12:00 AM EST) Swab us Cynthia Carson DO LAB CYTOLOGY ORDERABLES Olimpia l Result [facility] [address] [facility], [place] [address] from Last 3 Months or Most Recently Relevant to Health Maintenance Insurance [facility] Care Teams Securities Underwriter Relationship Specialty Start Date End Date Cynthia Carson DO [address] [facility] [place] [address] PCP - General Family Medicine 03/13/15
--- OUTSIDE RECORDS SUMMARY | 2024-08-05 15:24 | XMS_ITS | Encounter Summary ---
Author Organization [employer] [facility] Address [address] [place] [address] 7t [place] [address] Care Team Providers Care Lead Level Designer Name Role Phone Cynthia Carson DO Primary Care Provider Encounter Details Date Type Department Care Team (Latest Contact Info) Description 08/29/2018 Abstract C CONVERSIONS Dental, Provider, DDS Social History Tobacco Use Types Packs/Day Years Used Date Smoking Tobacco: Never Assessed Comments Unknown Sex and Gender Information Value Date Recorded Sex Assigned at Female 05/02/2022 10:25 AM EDT Legal Sex Female 10:25 AM EDT Gender Identity Female 05/02/2022 10:25 AM EDT Sexual Orientation Straight 05/02/2022 10 :25 AM EDT documented as of this encounter Plan of Treatment Not on file documented as of this encounter Visit Diagnoses Not on filedocumented in this encounter Care Teams Lead Level Designer Relationship Specialty Start Date End Date Cynthia Carson DO [address] [place] [address] PCP - General Family Medicine 03/13/15 documented as of this encounter
--- OUTSIDE RECORDS SUMMARY | 2024-08-05 15:24 | XMS_ITS | Encounter Summary ---
Author Organization [employer] [facility] Address [address] [place] [address] 7t [place] [address] Care Team Providers Care Home Demonstration Agent Name Role Phone DebbiCynthia baird Primary Care Provider + [phone] Reason for Visit * Reason Comments Med Refill Encounter Details Date Type Department Care Team ([facility] st Contact Info) Description 09/23/2022 Refill [facility] MEDICINE [address] [place] [address] Mary Aguiar MD [address] [place] [address] Social History Tobacco Use Types Packs/Day Years Used Date Smoking Tobacco: Never Passive Smoke Exposure: Never Smokeless Tobacco: Never Alcohol Use Standard Drinks/Week Comments Never 0 (1 standard drink = 0.6 oz pur e alcohol) Depression Answer Date Recorded Patient Health Questionnaire-9 Score 0 09/14/2022 Depression Answer Date Recorded Patient Health Questionnaire-2 Score 0 09/14/2022 Comments Unknown Sex and Gender Information Value Date Recorded Sex Assigned at Female 05/02/2022 10:25 AM EDT Legal Sex Female 10:25 AM EDT Gender Identity Female 05/02/2022 10:25 AM EDT Sexual Orientation Straight 05/02/2022 10 :25 AM EDT COVID-19 Exposure Response Date Recorded In the last 10 days, have yo u been in contact with someone who was confirmed or suspected to have Coronavirus/COVID-19? No / Unsure 09/14/2022 10:37 AM EDT documented as of this encounter Plan of Treatment Not on file documented as of this encounter Visit Diagnoses Not on filedocumented in this encounter Additional Health Concerns Assessment Noted Time PHQ-9 Depression Total Score: 0 09/15/19 23 11:12 AM EDT documented as of this encounter Care Teams Home Demonstration Agent Relationship Specialty Start Date End Date Cynthia Carson DO [address] [place] [address] PCP - General Family Medicine 03/13/15 documented as of this encounter
--- OUTSIDE RECORDS SUMMARY | 2024-08-05 15:24 | XMS_ITS | Encounter Summary ---
Author Organization [employer] Address [address] 7t [place] [address] Care Team Providers Care Post Partum Nurse Name Role Phone Cynthia Carson DO Primary Care Provider + [phone] Reason for Visit * Reason Comments Med Refill Encounter Details Date Type Department Care Team ([facility] st Contact Info) Description 04/22/2024 Refill [facility] MED[facility]INE [address] [place], [place] [phone] Cynthia Carson DO [address] [place], [place] [phone] Social History Tobacco Use Types Packs/Day Years [...] Assessment Noted Time PHQ-9 Depression Total Score: 7 11/29/19 24 8:13 AM EDT documented as of this encounter Care Teams Post Partum Nurse Relationship Specialty Start Date End Date Cynthia Carson DO [address] [place] [address] PCP - General Family Medicine 03/13/15 documented as of this encounter
--- OUTSIDE RECORDS SUMMARY | 2024-08-05 15:24 | XMS_ITS | Encounter Summary ---
Author Organization [employer] Address [address] [place] [address] 7 [place] [address] Care Team Providers Care Damaged Freight Inspector Name Role Phone YamilethCynthia Primary Care Provider + [phone] Reason for Visit * Reason Onset Date Comments appt 01/02/2024 Encounter Details Date Type Department Care Team ([facility] st Contact Info) Description 01/02/2024 Telephone [facility] ADULT D[facility]AL [address] [place] [address] Katheryn Ace, DDS [address] [place] [address] appt Social History Tobacco Use Types Packs/Day Years [...] AM EDT documented as of this encounter Miscellaneous Notes * Telephone Encounter - Lizzie Berry - 01/02/2024 8:36 AM EDT Patient called in stating that she has been on a waiting list for an appt for a very long time and has not gotten a call. I did not see any appts wait listed. It looks like she last came to us in 2019. I am under impression that perhaps appt was requested in [facility]. I did request it now but she is interested in getting an appt soon because she states she has been waitingfor a long time DR documented in this encounter Plan of Treatment Not on file documented as of this encounter Visit Diagnoses Not on filedocumented in this encounter Additional Health Concerns Assessment Noted Time PHQ-9 Depression Total Score: 7 11/29/19 24 8:13 AM EDT documented as of this encounter Care Teams Damaged Freight Inspector Relationship Specialty Start Date End Date Cynthia Carson DO [address] [place] [address] PCP - General Family Medicine 03/13/15 documented as of this encounter
--- OUTSIDE RECORDS SUMMARY | 2024-08-05 15:24 | XMS_ITS | Encounter Summary ---
Author Organization [employer] Address [address] [facility] 7t [place] [address] Care Team Providers Care Team Psychologist Name Role Phone Cynthia Carson DO Primary Care Provider + [phone] Reason for Visit * Reason Comments Med Refill Encounter Details Date Type Department Care Team (Late st Contact Info) Description 06/05/2023 Refill [facility] MED & PEDS [address] [place], [place] [phone] Cynthia Carson DO [address] [place], [place] [phone] Chronic constipation Social History Tobacco Use Types Packs/Day Years Used Date Smoking Tobacco: Never Passive Smoke Exposure: Never Smokeless Tobacco: Never Alcohol Use Standard Drinks/Week Comments Never 0 (1 standard drink = 0.6 oz pur e alcohol) Depression Answer Date Recorded Patient Health Questionnaire-9 Score 0 09/14/2022 Housing Stability Answer Date Recorded What is [...] documented as of this encounter Visit Diagnoses Diagnosis Chronic constipation Unspecified constipation documented in this encounter Additional Health Concerns Assessment Noted Time PHQ-9 Depression Total Score: 0 09/15/19 11:12 AM EDT documented as of this encounter Care Teams Team Psychologist Relationship Specialty Start Date End Date Cynthia Carson DO [address] [place] [address] PCP - General Family Medicine 03/13/15 documented as of this encounter
--- OUTSIDE RECORDS SUMMARY | 2024-08-05 15:24 | XMS_ITS | Encounter Summary ---
Author Organization [employer] Address [address] [place] [address] 7 [place] [address] Care Team Providers Care Web Content Coordinator Name Role Phone Cynthia Carson DO Primary Care Provider [phone] Reason for Visit * Reason Onset Date Comments Hospital Follow-up 07/18/2023 Encounter Details Date Type Department Care Team ([facility] Contact Info) Description 07/18/2023 Telephone [facility] MEDICINE [address] [place], [place] [phone] Cynthia Carson DO [address] [place], [place] [phone] Hospital Follow-up Social History Tobacco Use Types Packs/Day Years [...] encounter Miscellaneous Notes * Telephone Encounter - So Ferreira - 07/18/2023 12:57 PM EST Tc from pt requesting a HDF appt. Hospital: [facility] Date of admission: 07/10/23 Discharge date: 07/14/23 Diagnosed: sepsis Pt is requesting to please contact daughter at [phone] documented in this encounter Plan of Treatment Not on file documented as of this encounter Visit Diagnoses Not on filedocumented in this encounter Additional Health Concerns Assessment Noted Time PHQ-9 Depression Total Score: 0 09/15/19 23 11:12 AM EDT documented as of this encounter Care Teams Web Content Coordinator Relationship Specialty Start Date End Date Cynthia Carson DO [address] [place] [address] PCP - General Family Medicine 03/13/15 documented as of this encounter
--- OUTSIDE RECORDS SUMMARY | 2024-08-05 15:24 | XMS_ITS | Encounter Summary ---
Author Organization [employer] Address [address] [place] [address] 7t [place] [address] Care Team Providers Care Change Management Manager Name Role Phone Cynthia Carson DO Primary Care Provider + [phone] Reason for Visit * Reason Comments Med Refill Encounter Details Date Type Department Care Team ([facility] st Contact Info) Description 12/16/2022 Refill [facility] CH[facility] MED & PEDS [address] [place], [place] [phone] Cynthia Carson DO [address] [place] [address] Social History Tobacco Use Types Packs/Day Years [...] suspected to have Coronavirus/COVID-19? No / Unsure 12/16/2022 8:58 AM EDT documented as of this encounter Plan of Treatment Not on file documented as of this encounter Visit Diagnoses Not on filedocumented in this encounter Additional Health Concerns Assessment Noted Time PHQ-9 Depression Total Score: 0 09/15/19 23 11:12 AM EDT documented as of this encounter Care Teams Change Management Manager Relationship Specialty Start Date End Date Cynthia Carson DO [address] [place] [address] PCP - General Family Medicine 03/13/15 documented as of this encounter
--- OUTSIDE RECORDS SUMMARY | 2024-08-05 15:24 | XMS_ITS | Encounter Summary ---
Author Organization [employer] Address [address] [facility] 7t [place] [address] Care Team Providers Care Line And Frame Poler Name Role Phone YamilethCynthia Primary Care Provider + [phone] Reason for Visit * Reason Comments Med Refill Encounter Details Date Type Department Care Team ([facility] st Contact Info) Description 07/15/2024 Refill [facility] MEDICINE [address] [place], [place] [phone] Supriya Cox MD [address] [place], [place] [phone] Type 2 diabetes mellitus with hyperglycemia, unspecified whether halfway insulin use ([facility]) Social History Tobacco Use Types Packs/Day Years [...] as of this encounter Visit Diagnoses Diagnosis Type 2 diabetes mellitus with hyperglycemia, unspecified whether halfway insulin use ([facility]) documented in this encounter Additional Health Concerns Assessment Noted Time PHQ-9 Depression Total Score: 7 11/29/19 24 8:13 AM EDT documented as of this encounter Care Teams Line And Frame Poler Relationship Specialty Start Date End Date Cynthia Carson DO [address] [place] [address] PCP - General Family Medicine 03/13/15 documented as of this encounter
--- OUTSIDE RECORDS SUMMARY | 2024-08-05 15:24 | XMS_ITS | Encounter Summary ---
Author Organization [employer] Address [address] [facility] 7t [place] [address] Care Team Providers Care Embedder Name Role Phone Cynthia Carson DO Primary Care Provider + [phone] Reason for Visit * Reason Comments Med Refill Encounter Details Date Type Department Care Team ([facility] st Contact Info) Description 07/31/2023 Refill [facility] MEDICINE 230 [place], [place] [phone] Cynthia Carson DO [address] [place], [place] [phone] Hypomagnesemia Social History Tobacco Use Types Packs/Day Years [...] as of this encounter Visit Diagnoses Diagnosis Hypomagnesemia Disorders of magnesium metabolism documented in this encounter Additional Health Concerns Assessment Noted Time PHQ-9 Depression Total Score: 0 09/15/19 11:12 AM EDT documented as of this encounter Care Teams Embedder Relationship Specialty Start Date End Date Cynthia Carson DO [address] [place] [address] PCP - General Family Medicine 03/13/15 documented as of this encounter
--- OUTSIDE RECORDS SUMMARY | 2024-08-05 15:24 | XMS_ITS | Encounter Summary ---
Author Organization [employer] [facility] Address [address] [place] [address] 7t [place] [address] Care Team Providers Care Frame Changer Name Role Phone Cynthia Carson DO Primary Care Provider + [phone] Reason for Visit * Reason Comments Med Refill Encounter Details Date Type Department Care Team (Late st Contact Info) Description 03/08/2023 Refill [facility] MEDICINE [address] [place] [address] Mary Aguiar MD [address] [place] [address] Social History Tobacco Use Types Packs/Day Years [...] documented as of this encounter Care Teams Frame Changer Relationship Specialty Start Date End Date Cynthia Carson DO [address] [place] [address] PCP - General Family Medicine 03/13/15 documented as of this encounter
--- OUTSIDE RECORDS SUMMARY | 2024-08-05 15:24 | XMS_ITS | Encounter Summary ---
Author Organization [employer] Address [address] [facility] 7t [place] [address] Care Team Providers Care Non Cdl Driver Name Role Phone DebbiCynthia baird Primary Care Provider + [phone] Encounter Details Date Type Department Care Team (Late st Contact Info) Description 09/09/2022 Orders Only [facility] [address] [place], [place] [phone] Danielito Gonzalez FNP Essential hypertension (Primary Dx); Type 2 diabetes mellitus with diabetic nephropathy, without long-term current use of insulin ([facility]); Hyperlipidemia, unspecified hyperlipidemia type; Diabetes mellitus due to underlying condition with other diabetic kidney complication ([facility]) Social History Tobacco Use Types Packs/Day Years Used Date Smoking Tobacco: Never Passive Smoke Exposure: Never Smokeless Tobacco: Never Alcohol Use Standard Drinks/Week Comments Never 0 (1 standard drink = 0.6 oz pur e alcohol) Comments Unknown Sex and Gender Information Value [...] suspected to have Coronavirus/COVID-19? No / Unsure 08/15/2022 4:10 PM EST documented as of this encounter Plan of Treatment Scheduled Orders Name Type Priority Associated Diagnoses Orde r Schedule CBC auto differential Lab Routine Essential hypertension Type 2 diabetes mellitus with diabetic nephropathy, without long-term current use of insulin ([facility]) Hyperlipidemia, unspecified hyperlipidemia type Expected: 09/09/2022 (Approximate), Expires: 09/10/2023 Comprehensive metabolic panel Lab Routine Essential hypertension Type 2 diabetes mellitus with diabetic nephropathy, without long-term current use of insulin (CMS/[facility]) Hyperlipidemia, unspecified hyperlipidemia type Expected: 09/09/2022 (Approximate), Expires: 09/10/2023 documented as of this encounter Visit Diagnoses Diagnosis Essential hypertension- Primary Unspecified essential hypertension Type 2 diabetes mellitus with diabetic nephropathy, without long-term current use of insulin (CMS/[facility]) Hyperlipidemia, unspecified hyperlipidemia type Diabetes mellitus due to underlying condition with other diabetic kidney complication ([facility]/H[facility]) documented in this encounter Care Teams Non Cdl Driver Relationship Specialty Start Date End Date Cynthia Carson DO [address] [place] [address] PCP - General Family Medicine 03/13/15 documented as of this encounter
== END ==
LOC: HO.SL 13:52
PROVIDERS: PCP Family Medicine; Visit Provider Nurse Practitioner Family
DX: G47.33 Obstructive sleep apnea (adult) (pediatric) (principal); G47.34 Idiopathic sleep related nonobstructive alveolar hypoventilation
CPT/HCPCS: 95806

== ENCOUNTER → 2024-08-05 14:08 | Outpatient (BNV) | payer OTHER, SELFPAY | PROVIDERS: PCP Family Medicine; Visit Provider Psychiatry & Neurology Neurology | DX: G47.33 Obstructive sleep apnea (adult) (pediatric) (principal) | CPT/HCPCS: 95806 ==

== ENCOUNTER → 2024-08-08 09:22 | Outpatient (BNVA) | payer OTHER, SELFPAY | PROVIDERS: PCP Family Medicine; Visit Provider Nurse Practitioner Family | DX: I10 Essential (primary) hypertension (principal); I42.8 Other cardiomyopathies; I48.92 Unspecified atrial flutter; E66.9 Obesity, unspecified; E78.5 Hyperlipidemia, unspecified; G47.30 Sleep apnea, unspecified; Z68.41 Body mass index [BMI] 40.0-44.9, adult; Z79.01 Long term (current) use of anticoagulants | CPT/HCPCS: 99212 ==

== ENCOUNTER 2024-10-15 16:56 | Outpatient (REF) | payer OTHER, SELFPAY ==
--- OUTSIDE RECORDS SUMMARY | 2024-10-15 19:06 | XMS_ITS | Encounter Summary ---
Author Organization [employer] Address [address] [facility] 7t [place] [address] Care Team Providers Care Jewelry Store Manager Name Role Phone DebbiCynthia baird Primary Care Provider + [phone] Encounter Details Date Type Department Care Team (Latest Contact Info) Description 10/15/2024 Travel Social History Tobacco Use Types Packs/Day Years [...] Answer Date Recorded Patient Health Questionnaire-9 Score 5 10/15/2024 Patient Health Questionnaire-9 Score 5 10/15/2024 Last PHQ-9: Questionnaire Data Not on file 0 10/15/2024 Housing Stability Answer Date Recorded What is your housing situation today? I have severo schulz 10/15/[address] you li ve. Do you have problems with any of the following? None of the above 10/15/2024 Food Insecurity Answer Date Recorded Within the past 12 months, y ou worried that your food would run out before you got money to buy more: Sometimes True 2024 Within the past 12 months,th e food you bought just didn't last and you didn't have enough money to get more: Sometimes True 10/04/2024 Transportation Answer Date Recorded In the past 12 months, has l ack of transportation kept you from medical appts, meetings, work or from getting things needed for daily living? No 10/04/2024 Utilities Answer Date Recorded In the past 12 months, has t he electric, gas, oil or water company threatened to shut off services in your home? Yes 10/15/2024 Depression Answer Date Recorded Patient Health Questionnaire-2 Score 2 10/15/2024 Internet Access Answer Date Recorded Internet Access Q1 Yes 10/04/2024 Internet Access Q2 Not on file 10/04/2024 Comments Unknown Sex and Gender Information Value Date Recorded Sex Assigned at Female 05/02/2022 10:25 AM EDT Legal Sex Female 10:25 AM EDT Gender Identity Female 05/02/2022 10:25 AM EDT Sexual Orientation Straight 05/02/2022 10 :25 AM EDT documented as of this encounter Plan of Treatment Upcoming Encounters Date Type Department Care Team (Late st Contact Info) Description 03/19/2025 8:00 AM EDT Office Visit [facility] ADULT DENTAL [address] [place] [address] Maren Pao [address] [place] [address] documented as of this encounter Visit Diagnoses Not on filedocumented in this encounter Additional Health Concerns Assessment Noted Time PHQ-9 Depression Total Score: 5 10/16/19 25 10:16 AM EDT documented as of this encounter Care Teams Jewelry Store Manager Relationship Specialty Start Date End Date Cynthia Carson DO [address] [place] [address] PCP - General Family Medicine 03/13/15 documented as of this encounter
--- OUTSIDE RECORDS SUMMARY | 2024-10-15 19:06 | XMS_ITS | Encounter Summary ---
Author Organization [employer] Address [address] [place] [address] 7 [place] [address] Care Team Providers Care Insecticide Maker Name Role Phone Cynthia Carson DO Primary Care Provider + [phone] Reason for Visit * Reason Comments Med Refill Encounter Details Date Type Department Care Team (Late Contact Info) Description 12/16/2022 Refill [facility]EDS [address] [place] [address] Cynthia Carson DO [address] [facility] [place] [address] Social History Tobacco Use Types Packs/Day Years [...] Encounters Date Type Department Care Team (Late Contact Info) Description 03/19/2025 8:00 AM EDT Office Visit [facility] AD[facility] [address] [place] [address] Pao Engel [address] [place] [address] documented as of this encounter Visit Diagnoses Not on filedocumented in this encounter Additional Health Concerns Assessment Noted Time PHQ-9 Depression Total Score: 0 09/15/19 23 11:12 AM EDT documented as of this encounter Care Teams Insecticide Maker Relationship Specialty Start Date End Date Cynthia Carson DO 230 [place] [address] PCP - General Family Medicine 03/13/15 documented as of this encounter
--- OUTSIDE RECORDS SUMMARY | 2024-10-15 19:06 | XMS_ITS | Encounter Summary ---
Author Organization [employer] Address [address] [facility] 7t [place] [address] Care Team Providers Care Facility Engineer Name Role Phone Cynthia Carson DO Primary Care Provider + [phone] Reason for Visit * Reason Comments Med Refill Encounter Details Date Type Department Care Team ([facility] st Contact Info) Description 04/22/2024 Refill [facility] MEDICINE [address] [place], [place] [phone] Cynthia Carson DO 230 [place], [place] [phone] Social History Tobacco Use Types Packs/Day Years [...] Office Visit [facility] ADULT DENTAL [address] [place] [address] Maren, Pao [address] [place] [address] documented as of this encounter Visit Diagnoses Not on filedocumented in this encounter Additional Health Concerns Assessment Noted Time PHQ-9 Depression Total Score: 7 11/29/19 24 8:13 AM EDT documented as of this encounter Care Teams Facility Engineer Relationship Specialty Start Date End Date Cynthia Carson DO [address] [place] [address] PCP - General Family Medicine 03/13/15 documented as of this encounter
--- OUTSIDE RECORDS SUMMARY | 2024-10-15 19:06 | XMS_ITS | Encounter Summary ---
Author Organization [employer] Address [address] [facility] 7t [place] [address] Care Team Providers Care Frame Maker Name Role Phone Cynthia Carson DO Primary Care Provider + [phone] Reason for Visit * Reason Comments Med Refill Encounter Details Date Type Department Care Team ([facility] st Contact Info) Description 07/31/2023 Refill [facility] MEDICINE [address] [place], [place] [phone] Cynthia Carson DO 230 [place], [place] [phone] Hypomagnesemia Social History Tobacco Use Types Packs/Day [...] Description 03/19/2025 8:00 AM EDT Office Visit [facility] ADULT DENTAL [address] [place] [address] Maren, Pao [address] [place] [address] documented as of this encounter Visit Diagnoses Diagnosis Hypomagnesemia Disorders of magnesium metabolism documented in this encounter Additional Health Concerns Assessment Noted Time PHQ-9 Depression Total Score: 0 09/15/19 23 11:12 AM EDT documented as of this encounter Care Teams Frame Maker Relationship Specialty Start Date End Date Cynthia Carson DO [address] [place] [address] PCP - General Family Medicine 03/13/15 documented as of this encounter
--- OUTSIDE RECORDS SUMMARY | 2024-10-15 19:06 | XMS_ITS | Encounter Summary ---
Author Organization [employer] Address [address] [place] [address] 7 [place] [address] Care Team Providers Care Welder First Class Name Role Phone YamilethCynthia Primary Care Provider + [phone] Reason for Visit * Reason Onset Date Comments appt 01/02/2024 Encounter Details Date Type Department Care Team ([facility] st Contact Info) Description 01/02/2024 Telephone [facility] AD[facility] D[facility]AL [address] [place] [address] Katheryn Ace, DDS [address] [place] [address] appt Social History Tobacco Use Types Packs/Day [...] impression that perhaps appt was requested in [facility]. I did request it now but she is interested in getting an appt soon because she states she has been waitingfor a long time DR documented in this encounter Plan of Treatment Upcoming Encounters Date Type Department Care Team (Late st Contact Info) Description 03/19/2025 8:00 AM EDT Office Visit [facility] AD[facility] [address] [place] [address] Osmin Engelaris [address] [place] [address] documented as of this encounter Visit Diagnoses Not on filedocumented in this encounter Additional Health Concerns Assessment Noted Time PHQ-9 Depression Total Score: 7 11/29/19 24 8:13 AM EDT documented as of this encounter Care Teams Welder First Class Relationship Specialty Start Date End Date Cynthia Carson DO [address] [place] [address] PCP - General Family Medicine 03/13/15 documented as of this encounter
--- OUTSIDE RECORDS SUMMARY | 2024-10-15 19:06 | XMS_ITS | Encounter Summary ---
Author Organization [employer] Address [address] [place] [address] 7t [place] [address] Care Team Providers Care Budget Engineer Name Role Phone YamilethCynthia Primary Care Provider + [phone] Reason for Visit * Reason Comments Med Refill Encounter Details Date Type Department Care Team ([facility] st Contact Info) Description 10/14/2024 Refill [facility] MEDICINE [address] [place], [place] [phone] Supriya Cox MD [address] [place], [place] [phone] Gastroesophageal reflux disease, unspecified whether esophagitis present; Mixed hyperlipidemia Social History Tobacco Use Types Packs/Day Years [...] Description 03/19/2025 8:00 AM EDT Office Visit [facility] ADULT DENTAL [address] [place] [address] Maren, Pao [address] [place] [address] documented as of this encounter Visit Diagnoses Diagnosis Gastroesophageal reflux disease, unspecified whether esophagitis present Mixed hyperlipidemia documented in this encounter Additional Health Concerns Assessment Noted Time PHQ-9 Depression Total Score: 7 11/29/19 24 8:13 AM EDT documented as of this encounter Care Teams Budget Engineer Relationship Specialty Start Date End Date Cynthia Carson DO [address] [place], [place] [phone] PCP - General Family Medicine 03/13/15 documented as of this encounter
--- OUTSIDE RECORDS SUMMARY | 2024-10-15 19:06 | XMS_ITS | Encounter Summary ---
Author Organization [employer] [facility] Address [address] [place] [address] 7t [place] [address] Care Team Providers Care Manufacturing Plant Technician Name Role Phone DebbiCynthia baird Primary Care Provider + [phone] Reason for Visit * Reason Comments Med Refill Encounter Details Date Type Department Care Team (Late Contact Info) Description 09/23/2022 Refill [facility] MEDICINE [address] [place] [address] Mary Aguiar MD [address] [place] [address] Social History Tobacco Use Types Packs/Day Years [...] 03/19/2025 8:00 AM EDT Office Visit [facility] ADULT DENTAL [address] [place] [address] Pao Engel [address] [place] [address] documented as of this encounter Visit Diagnoses Not on filedocumented in this encounter Additional Health Concerns Assessment Noted Time PHQ-9 Depression Total Score: 0 09/15/19 23 11:12 AM EDT documented as of this encounter Care Teams Manufacturing Plant Technician Relationship Specialty Start Date End Date Cynthia Carson DO [address] [place] [address] PCP - General Family Medicine 03/13/15 documented as of this encounter
--- OUTSIDE RECORDS SUMMARY | 2024-10-15 19:06 | XMS_ITS | Encounter Summary ---
Author Organization [employer] Address [address] [facility] 7t [place] [address] Care Team Providers Care Trading Floor Operator Name Role Phone Cynthia Carson DO Primary Care Provider + [phone] Reason for Visit * Reason Comments Med Refill Encounter Details Date Type Department Care Team (Late st Contact Info) Description 06/05/2023 Refill [facility] CH[facility] MED & PEDS [address] [place], [place] [phone] Cynthia Carson DO [address] [place], [place] [phone] Chronic constipation Social History Tobacco Use Types [...] Description 03/19/2025 8:00 AM EDT Office Visit [facility] ADULT DENTAL [address] [place] [address] Osmin Engelaris [address] [place] [address] documented as of this encounter Visit Diagnoses Diagnosis Chronic constipation Unspecified constipation documented in this encounter Additional Health Concerns Assessment Noted Time PHQ-9 Depression Total Score: 0 09/15/19 23 11:12 AM EDT documented as of this encounter Care Teams Trading Floor Operator Relationship Specialty Start Date End Date Cynthia Carson DO [address] [place] [address] PCP - General Family Medicine 03/13/15 documented as of this encounter
--- OUTSIDE RECORDS SUMMARY | 2024-10-15 19:06 | XMS_ITS | Encounter Summary ---
Author Organization [employer] Address [address] [facility] 7t [place] [address] Care Team Providers Care Comptometrist Name Role Phone Cynthia Carson DO Primary Care Provider [phone] Encounter Details Date Type Department Care Team ([facility] st Contact Info) Description 10/15/2024 9:00 AM EDT Office Visit [facility] MEDICINE [address] [place], [place] [phone] Cynthia Carson DO [address] [place] [address] Type 2 diabetes mellitus without complication, with long-term current use of insulin ([facility]); Urinary tract infection without hematuria, site unspecified; Encounter for immunization Social History Tobacco Use Types Packs/Day Years [...] AM EDT documented as of this encounter Last Filed Vital Signs Vital Sign Reading Time Taken Comments Blood Pressure 136/78 10/15/2024 9:04 AM EDT Pulse 70 10/15/2024 9:04 AM EDT Temperature 36.8 ??C (98.3 ??F) 10/15/2024 9:04 AM ED T Respiratory Rate 20 10/15/2024 9:04 AM EDT Oxygen Saturation 99% 10/15/2024 9:04 AM EDT Inhaled Oxygen Concentration - - Weight 107 kg (236 lb) 10/15/2024 9:04 AM EDT Height 157.5 cm (5' 2 ) 10/15/2024 9:04 AM EDT Body Mass Index 43.16 10/15/2024 9:04 AM EDT documented in this encounter Plan of Treatment Upcoming Encounters Date Type Department Care Team (Late st Contact Info) Description 03/19/2025 8:00 AM EDT Office Visit [facility] ADULT DENTAL [address] [place] [address] [place] [address] Scheduled Orders Name Type Priority Associated Diagnoses Orde r Schedule Culture, Urine, Routine Microbiology Routine Urinary tract infection without hematuria, site unspecified Expected: 10/15/2024 (Approximate), Expires: 10/15/2025 documented as of this encounter Procedures Procedure Name Priority Date/Time Associated Diagnosis Comments POCT URINALYSIS DIPSTICK Routine 10/15/2024 10:12 AM EDT Urinary tract infection without hematuria, site unspecified POCT GLYCATED HEMOGLOBIN, TOTAL Routine 10/15/2024 9:16 AM EDT Type 2 diabetes mellitus without complication, with long-term current use of insulin ([facility]) POCT GLUCOSE Routine 10/15/2024 9:15 AM EDT Type 2 diabetes mellitus without complication, with long-term current use of insulin ([facility]) documented in this encounter Results * (ABNORMAL) POCT Urinalysis (10/15/2024 10:12 AM EDT) Color, UA Yellow Clarity, UA Cloudy Glucose, UA Negative Bilirubin, UA Negative Ketones, UA Negative Spec Grav, UA 1.030 Blood, UA Positive(A) Negative, None Detected Comment:Trace-lysed pH, UA 6.0 Protein, UA Trace Comment:30mg Urobilinogen, UA 1.0 Leukocytes, UA Trace Negative, Rare, Trace Nitrite, UA Positive(A) Negative, None Detected QC Media Lot # [id number] Lot# Expiration Date ,025 Urine 10/15/2024 10:1 2 AM EDT Cynthia Carson DO POINT OF CARE TEST ENTER/LISA T ORDERABLES Final Result * (ABNORMAL) POCT HGB A1C (10/15/2024 9:16 AM EDT) Hemoglobin A1C 7.1(A) 4.0 - 6.0 % QC Media Lot # [id number] Lot# Expiration Date [id number] Blood 10/15/2024 9:16 AM EDT Cynthia Carson DO POINT OF CARE TEST ENTER/LISA T ORDERABLES Final Result * (ABNORMAL) POCT Glucose (10/15/2024 9:15 AM EDT) Glucose Blood, POC 244(A) 60 - 200 mg/dL QC Media Lot # [id number] Lot# Expiration Date Blood Capillary blood specimen / Unknown 10/15/2024 9:15 AM EDT Cynthia Carson DO POINT OF CARE TEST ENTER/LISA T ORDERABLES Final Result documented in this encounter Visit Diagnoses Diagnosis Type 2 diabetes mellitus without complication, with long-term current use of insulin ([facility]) Urinary tract infection without hematuria, site unspecified Encounter for immunization documented in this encounter Additional Health Concerns Assessment Noted Time PHQ-9 Depression Total Score: 5 10/16/19 25 10:16 AM EDT documented as of this encounter Care Teams Comptometrist Relationship Specialty Start Date End Date Cynthia Carson DO [address] [place] [address] PCP - General Family Medicine 03/13/15 documented as of this encounter
--- OUTSIDE RECORDS SUMMARY | 2024-10-15 19:06 | XMS_ITS | Encounter Summary ---
Author Organization [employer] [facility] Address [address] [place] [address] 7 [place] [address] Care Team Providers Care Modern Dancer Name Role Phone JenelleCynthia beckwith Primary Care Provider + [phone] Reason for Visit * Reason Comments Med Refill Encounter Details Date Type Department Care Team (Late st Contact Info) Description 03/08/2023 Refill [facility] MEDICINE [address] [place] [address] Mary Aguiar MD [address] [place] [address] Social History Tobacco Use Types Packs/Day Years [...] Description 03/19/2025 8:00 AM EDT Office Visit [facility] ADULT DENTAL [address] [place], [place] [phone] Pao Engel [address] [place] [address] documented as of this encounter Visit Diagnoses Not on filedocumented in this encounter Additional Health Concerns Assessment Noted Time PHQ-9 Depression Total Score: 0 09/15/19 23 11:12 AM EDT documented as of this encounter Care Teams Modern Dancer Relationship Specialty Start Date End Date Cynthia Carson DO 230 [place] [address] PCP - General Family Medicine 03/13/15 documented as of this encounter
--- OUTSIDE RECORDS SUMMARY | 2024-10-15 19:06 | XMS_ITS | Encounter Summary ---
Author Organization [employer] Address [address] [facility] 7t [place] [address] Care Team Providers Care Lemon Grower Name Role Phone JenelleCynthia beckwith Primary Care Provider + [phone] Encounter Details Date Type Department Care Team (Late Contact Info) Description 09/09/2022 Orders Only [facility] [address] [place], [place] [phone] Danielito Gonzalez FNP Essential hypertension (Primary Dx); Type 2 diabetes mellitus with diabetic nephropathy, without long-term current use of insulin ([facility]); Hyperlipidemia, unspecified hyperlipidemia type; Diabetes mellitus due to underlying condition with other diabetic kidney complication ([facility]) Social History Tobacco Use Types Packs/Day [...] Description 03/19/2025 8:00 AM EDT Office Visit [facility] ADULT DENTAL [address] [place] [address] Pao Engel [address] [place] [address] Scheduled Orders Name Type Priority Associated Diagnoses Orde r Schedule CBC auto differential Lab Routine Essential hypertension Type 2 diabetes mellitus with diabetic nephropathy, without long-term current use of insulin (CMS/HCC) Hyperlipidemia, unspecified hyperlipidemia type Expected: 09/09/2022 (Approximate), Expires: 09/10/2023 Comprehensive metabolic panel Lab Routine Essential hypertension Type 2 diabetes mellitus with diabetic nephropathy, without long-term current use of insulin (CMS/HCC) Hyperlipidemia, unspecified hyperlipidemia type Expected: 09/09/2022 (Approximate), Expires: 09/10/2023 documented as of this encounter Visit Diagnoses Diagnosis Essential hypertension- Primary Unspecified essential hypertension Type 2 diabetes mellitus with diabetic nephropathy, without long-term current use of insulin (CMS/HCC) Hyperlipidemia, unspecified hyperlipidemia type Diabetes mellitus due to underlying condition with other diabetic kidney complication (CMS/HCC) documented in this encounter Care Teams Lemon Grower Relationship Specialty Start Date End Date Cynthia Carson DO 230 [place] [address] PCP - General Family Medicine 03/13/15 documented as of this encounter
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
--- OUTSIDE RECORDS SUMMARY | 2024-10-15 19:06 | XMS_ITS | Encounter Summary ---
Author Organization [facility] Address [address] [place] [address] [address] [place] [address] Care Team Providers Care Eap Counselor Name Role Phone Cynthia Carson DO Primary Care Provider [phone] Encounter Details Date Type Department Care Team (Latest Contact Info) Description 08/29/2018 Abstract [facility] CONVERSIONS Dental, Provider, DDS Social History Tobacco [...] Upcoming Encounters Date Type Department Care Team ( st Contact Info) Description 03/19/2025 8:00 AM EDT Office Visit [facility] ADULT DENT[facility] [address] [place] [address] Maren, Pao [address] [place] [address] documented as of this encounter Visit Diagnoses Not on filedocumented in this encounter Care Teams Eap Counselor Relationship Specialty Start Date End Date Cynthia Carson DO [address] [place] [address] PCP - General Family Medicine 03/13/15 documented as of this encounter
--- OUTSIDE RECORDS SUMMARY | 2024-10-15 19:06 | XMS_ITS | Encounter Summary ---
Author Organization [employer] Address [address] [place] [address] [address] [place] [address] Care Team Providers Care Laborer High Density Press Name Role Phone Cynthia Carson DO Primary Care Provider + [phone] Reason for Visit * Reason Comments Med Refill Encounter Details Date Type Department Care Team (Late st Contact Info) Description 10/08/2024 Refill [facility] [address] [place], [place] [phone] Cynthia Carson DO [address] [place], [place] [phone] Essential hypertension; Seasonal allergic rhinitis, unspecified trigger Social History Tobacco Use Types Packs/Day Years [...] housing situation today? I have severo schulz 10/04/[address] you li ve. Do you have problems with any of the following? Pests such as bugs, ants, or mice 10/04/2024 Food Insecurity Answer Date Recorded Within the [...] shut off services in your home? No 10/04/2024 Depression Answer Date Recorded Patient Health Questionnaire-2 Score 1 11/29/2023 Internet Access Answer Date Recorded Internet Access [...] Description 03/19/2025 8:00 AM EDT Office Visit [facility] [address] [place] [address] Osmin Engelaris [address] [place] [address] documented as of this encounter Visit Diagnoses Diagnosis Essential hypertension Unspecified essential hypertension Seasonal allergic rhinitis, unspecified trigger documented in this encounter Additional Health Concerns Assessment Noted Time PHQ-9 Depression Total Score: 7 11/29/19 24 8:13 AM EDT documented as of this encounter Care Teams Laborer High Density Press Relationship Specialty Start Date End Date Cynthia Carson DO [address] [place] [address] PCP - General Family Medicine 03/13/15 documented as of this encounter
== END 2024-10-15 16:57 | disposition home or self-care (01) ==
LOC: HO.LNP 16:56
PROVIDERS: Visit Provider Family Medicine
DX: N39.0 Urinary tract infection, site not specified (principal); B96.20 Unspecified Escherichia coli [E. coli] as the cause of diseases classified elsewhere
CPT/HCPCS: 87086; 87088; 87186

== ENCOUNTER 2024-11-26 09:33 | Outpatient (AMB) | payer OTHER, SELFPAY ==
[2024-11-26 09:47] VITALS: BP 134/72; PULSE 85; BMI 43.2
--- NOTE | 2024-11-26 09:47 | A.OFFVIS_ITS ---
Vital Signs 11/26/24 09:47 Height 5 ft 2 in Weight 236 lb 5.369 oz BMI 43.2 BP 134/72 Blood Pressure Location Lt brachial Position Sitting Pulse 85 Pulse Source Pulse Oximeter Intake Visit Reasons: f/u Health Care Coordinator Required: Yes Health Care Coordinator Language: Post Acute Care Nurse Practitioner Name: voice hardy [id number] Allergies No Known Allergies [No Known Allergies*] Allergy (Verified 11/26/24 09:49) Medication List - Last Reconciled 11/26/24 by GAVIN Rangel acetaminophen ER 650 mg PO Q8H PRN amlodipine 5 mg PO DAILY atorvastatin 80 mg PO BEDTIME baclofen 10 mg PO TID PRN cholecalciferol (vitamin D3) (Vitamin D3) 50 mcg PO DAILY diclofenac sodium 75 mg PO BID PRN diclofenac sodium 1% 1 ea topical QID diltiazem HCl 30 mg PO BID docusate sodium 100 mg PO BID PRN dulaglutide (Trulicity) mg subcut fluoxetine 40 mg PO DAILY fluticasone propionate 50 mcg/actuation 2 sprays intranasal DAILY PRN insulin glargine (Lantus Solostar U-100 Insulin) 8 units subcut DAILY lisinopril 40 mg PO DAILY loratadine 10 mg PO DAILY PRN magnesium oxide 400 mg PO BEDTIME metformin ER 1,000 mg PO BID omeprazole 20 mg PO DAILY@0630 rivaroxaban (Xarelto) 20 mg PO DAILY@1700 sennosides (senna) 17.2 mg PO BEDTIME PRN trazodone 100 mg PO BEDTIME PRN HPI HPI f/u: Details: Ashley is a 58-year-old female past medical history of morbid obesity, hype rtension, hyperlipidemia, diabetes, nonischemic cardiomyopathy, bradycardia on Metoprolol, atrial fibrillation/flutter who presents for follow-up. Today she reports that she has been noticing daily heart palpitations. The episodes last less than a minute but can reoccur. She is bothered by this. She has been taking the diltiazem 30 mg b.i.d.. No lightheadedness, presyncope, syncope. No chest discomfort at rest or with activity. No shortness of breath, PND, orthopnea or edema. She drinks 1 caffeinated coffee per day. She tries to use her CPAP but states that it is bothersome for her. She is compliant with her meds. No bleeding issues reported. 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 [facility] Medical History Hospital discharge follow-up New onset atrial flutter Poor historian Encounter for screening colonoscopy Cervical cancer screening Women's annual routine gynecological examination Morbid obesity Bacterial vaginosis Vaginal itching Bladder pain Language barrier History of cardioversion Atrial flutter, paroxysmal On beta pat at home On anticoagulant therapy Atrial fibrillation and flutter Atrial fibrillation Diabetes Essential hypertension Abdominal pain Lab test negative for COVID-19 virus Arthritis Anemia GERD (gastroesophageal reflux disease) Hepatitis Depression Hypercholesteremia Diabetes HTN (hypertension) Surgical History History of robot-assisted laparoscopic hysterectomy Hx of abdominal surgery Hx of dilation and curettage Hx of excision of mass Hx of section Hx of tubal ligation Hx of reduction mammoplasty Hx of cholecystectomy Hx of gastric bypass Bariatric surgery status Social History Household Members: Children Housing: Apartment Are you a primary post acute care registered nurse to a significant other at home: No Do you presently have visiting nurse or other home services: No Alcohol intake: never Comment: history-long ago fall when having issues with knees Patient Tobacco Use Status: Never used Tobacco e-Cigarette/Vaping Use: Never Used Advance Directives Date on File: 11/09/21 service: No Current occupational status: disabled Current occupation: rt handed Female Reproductive History Menstrual Age of Menarche: 11 Review of Systems Const All systems reviewed & are unremarkable except as noted in HPI and below ENT Denies dizziness Card Details: daily palpitations Denies chest pain, Denies chest pain at rest, Denies chest pain with activity, Denies rapid heart rate, Denies pedal edema, Denies edema, Denies leg edema, Denies lightheadedness, Denies palpitations, Denies dyspnea, Denies dyspnea on exertion and Denies orthopnea Resp Denies cough, Denies dyspnea and Denies dyspnea on exertion GI Denies hematochezia and Denies change in stool character Musc Denies abnormal gait, Denies limited range of motion, Denies muscle cramps, Denies muscle weakness, Denies numbness, Denies radiating pain into limb, Denies stiffness and Denies tingling Neuro Denies abnormal gait, Denies dizziness, Denies numbness and Denies tingling Endo Denies palpitations Physical Exam Vital Signs: Last Vital Signs Pulse 85 11/26/24 09:47 BP 134/72 11/26/24 09:47 BMI result Body Mass Index 43.2 Const General: cooperative, healthy appearing, comfortable and no acute distress Orientation/consciousness: patient oriented x3 Neck Neck: Yes normal visual inspection Resp Effort & Inspection: normal respiratory effort Auscultation: clear to auscultation bilaterally, no rales, no rhonchi and no wheezes Cardio Rate: regular rate Rhythm: regular rhythm Heart sounds: S1 normal heart sound present, S2 normal heart sound present, no gallops, no murmurs and no rubs Neuro General: patient oriented x3 Extrem General: Yes normal to inspection, No no pedal edema and No calf tenderness Psych Appearance: grossly normal Mental Status: mental status grossly normal Speech and movement: Normal speech and movement present Assessment & Plan Assessment & Plan (1) Atrial flutter: Code(s): I48.92 - Unspecified atrial flutter Category: Medical Plan: History of atrial fibrillation/flutter. She had been on metoprolol at 100 mg b.i.d. for heart rate control and had sinus bradycardia so it was discontinued. She has been on Xarelto for anticoagulation. On 08/01/2023 she presented to the emergency room with palpitations and was noted to have recurrent atrial flutter that was treated with IV diltiazem. At that point she was put on diltiazem 30 mg b.i.d.. Recently she has been having increasing amounts of heart palpitations. She is clinically in sinus rhythm today with resting heart rate 85 beats per minute. Holter monitor was done on 01/26/2024 for 3 days showing sinus rhythm with average heart rate 77, rare SVE and VE. With her increasing heart palpitations will increase diltiazem up to 60 mg b.i.d., will stop amlodipine. Will plan Holter monitor in 1-2 weeks to evaluate for PAF and average heart rate. Cardiology follow-up 3 months, sooner if needed. (2) Cardiomyopathy: Code(s): I42.9 - Cardiomyopathy, unspecified Category: Medical Plan: Echocardiogram done on 10/25/2021 showed EF 40-45%, no valve abnormalities. Nuclear stress test done on 11/23/2021 shows normal myocardial perfusion imaging, EF 46%. Cardiomyopathy was thought to be related to the atrial fibrillation/flutter however she has mostly maintained sinus rhythm. Echocardiogram was done again on 12/22/2023 showing EF 55-60%, basal inferior akinetic, ascending aorta 3.7 cm. Due to the wall motion abnormality she underwent a pharmacological nuclear stress test on 02/05/2024 showing probable normal myocardial perfusion imaging. On exam today she has no signs of decompensated heart failure and reports no anginal symptoms. Continue diltiazem. Continue lisinopril. s/s HF discussed. (3) HTN (hypertension): Code(s): I10 - Essential (primary) hypertension Category: Medical Plan: Blood pressure goal less than 130/80. Near goal today. Increasing diltiazem. (4) On anticoagulant therapy: Comment: Xarelto Code(s): Z79.01 - joint terminal attack controller (current) use of anticoagulants Category: Medical Plan: On Xarelto for stroke risk reduction with AFib, no bleeding issues reported. (5) Sleep apnea: Code(s): G47.30 - Sleep apnea, unspecified Category: Medical Plan: Sleep study done 05/31/2023 shows [id number] obstructive sleep apnea, oxygen saturation below 88% for 6 minutes. She follows with sleep medicine. She tells me she has not been able to wear her CPAP mask consistently due to intolerance. Instructed to further discuss with her sleep medicine provider. Plan Time spent on chart review, documentation, interview and assessment I discussed the likely diagnosis of recurrent palpitations due to atrial flutter with the patient, outlining the management plan, including medication adjustments and heart rate monitoring. I emphasized the benefits of changing the medication regimen and provided clear instructions regarding the potential risks of bleeding due to long-term Xarelto use. I advised about her caffeine intake, explaining its potential impact on her palpitations. We discussed the importance of consistent CPAP usage for obstructive sleep apnea and explored the possibility of different mask options to enhance comfort. I highlighted the importance of follow-up to evaluate the response to medication changes and ensure effective heart rate control. Orders: Orders ECG 3 day holter monitor 1 Week I48.92 - Unspecified atrial flutter Medications: New diltiazem HCl ER dose increased 60 mg PO BID 60 caps 3RF Discontinued diltiazem HCl Discontinued Reason: Doctor's Order 30 mg PO BID 180 tabs 3RF Patient Instructions: - Take the adjusted dose of diltiazem. - Discontinue amlodipine. - Monitor for any signs of bleeding (e.g., blood in urine or nosebleeds) and report if noted. - Reduce caffeine intake to one coffee per day or less. - Continue using the CPAP machine, and explore different mask types if current one is uncomfortable. - Follow up as scheduled to assess heart monitoring results. Patient was informed and verbally consented to the use of an ambient scribe for clinic note documentation during this visit. Coding Level of Care Code Est Pt Level 4 (04027) Complex EM visit Add On G2211 Diagnoses Atrial flutter I48.92 Cardiomyopathy I42.9 HTN (hypertension) I10 On anticoagulant therapy Z79.01 Sleep apnea G47.30 Time Spent (min) 28
--- OUTSIDE RECORDS SUMMARY | 2024-11-26 10:07 | XMS_ITS | Encounter Summary ---
Author Organization [employer] Address [address] [facility] [address] [place] [address] Care Team Providers Care Legal Instruments Examiner Name Role Phone Cynthia Carson DO Primary Care Provider + [phone] Reason for Visit * Reason Comments Med Refill Encounter Details Date Type Department Care Team ([facility] st Contact Info) Description 04/22/2024 Refill [facility] MEDICINE [address] [place], [place] [phone] Cynthia Carson DO [address] [place], [place] [phone] Social History Tobacco Use Types Packs/Day Years [...] Description 03/19/2025 8:00 AM EDT Office Visit [facility] ADULT DENTAL [address] [place] [address] Maren, Pao [address] [place] [address] documented as of this encounter Visit Diagnoses Not on filedocumented in this encounter Additional Health Concerns Assessment Noted Time PHQ-9 Depression Total Score: 7 11/29/19 24 8:13 AM EDT documented as of this encounter Care Teams Legal Instruments Examiner Relationship Specialty Start Date End Date Cynthia Carson DO [address] [place] [address] PCP - General Family Medicine 03/13/15 documented as of this encounter
== END 2024-11-26 10:18 | disposition home or self-care (01) ==
LOC: HO.HCS 09:34
PROVIDERS: PCP Family Medicine; Visit Provider Nurse Practitioner Family
DX: I48.92 Unspecified atrial flutter (principal); I42.9 Cardiomyopathy, unspecified; I10 Essential (primary) hypertension; Z79.01 Long term (current) use of anticoagulants; G47.30 Sleep apnea, unspecified
CPT/HCPCS: 99214; G2211

== ENCOUNTER → 2024-11-26 09:33 | Outpatient (BNVA) | payer OTHER, SELFPAY | PROVIDERS: PCP Family Medicine; Visit Provider Nurse Practitioner Family | DX: I48.92 Unspecified atrial flutter (principal); I42.9 Cardiomyopathy, unspecified; I10 Essential (primary) hypertension; G47.30 Sleep apnea, unspecified; Z79.01 Long term (current) use of anticoagulants | CPT/HCPCS: 99212 ==

== ENCOUNTER → 2024-12-03 10:41 | Outpatient (REF) | payer OTHER, SELFPAY ==
--- OUTSIDE RECORDS SUMMARY | 2024-12-03 12:20 | XMS_ITS | Encounter Summary ---
Author Organization [employer] Address [address] [facility] [address] [place] [address] Care Team Providers Care Solar System Installer Name Role Phone Cynthia Carson DO Primary Care Provider + [phone] Reason for Visit * Reason Comments Med Refill Encounter Details Date Type Department Care Team ([facility] st Contact Info) Description 04/22/2024 Refill [facility] MEDICINE [address] [place], [place] [phone] Cynthia Carson DO [address] [place], [place] [phone] Social History Tobacco Use Types Packs/Day Years [...] [facility] ADULT DENTAL [address] [place] [address] Maren, Pao [address] [place] [address] documented as of this encounter Visit Diagnoses Not on filedocumented in this encounter Additional Health Concerns Assessment Noted Time PHQ-9 Depression Total Score: 7 11/29/19 24 8:13 AM EDT documented as of this encounter Care Teams Solar System Installer Relationship Specialty Start Date End Date Cynthia Carson DO [address] [place] [address] PCP - General Family Medicine 03/13/15 documented as of this encounter
== END ==
LOC: HO.CARD 10:41
PROVIDERS: PCP Family Medicine; Visit Provider Nurse Practitioner Family
DX: I48.92 Unspecified atrial flutter (principal)
CPT/HCPCS: 93242

== ENCOUNTER → 2024-12-03 10:44 | Outpatient (BNV) | payer OTHER, SELFPAY | PROVIDERS: PCP Family Medicine; Visit Provider Internal Medicine Cardiovascular Disease | DX: I49.3 Ventricular premature depolarization (principal) | CPT/HCPCS: 93244 ==

== ENCOUNTER 2024-12-20 08:12 | Outpatient (REF) | payer OTHER, SELFPAY ==
--- NOTE | ~2024-12-20 | MM_ITS ---
EXAMINATION: MM SCREENING DIGITAL BREAST TOMOSYNTHESIS, BILATERAL CLINICAL INFORMATION: Screening. Asymptomatic. COMPARISON: Mammography: Comparison is made with available priors TECHNIQUE: Digital breast mammography with tomosynthesis is performed in both the craniocaudal and mediolateral oblique views along with computer-aided detection (CAD). FINDINGS: There are scattered areas of fibroglandular density (ACR BI-RADS breast composition Category b). Left marker clip. Bilateral reduction. There are no significant masses, abnormal calcifications, or other abnormalities. MM/MM tomosynthesis screening BI IMPRESSION: No mammographic evidence of malignancy. ASSESSMENT: BI-RADS BI-RADS 2 - Benign Findings RECOMMENDATION: Routine annual mammography screening. 1 year F/U This examination should not preclude the clinical evaluation of a suspicious palpable abnormality. This patient's information was entered into a reminder system with a target due date for their next mammogram. Electronically signed by: Jeanne Toledo DO 12/26/2024 11:27 AM EDT
== END 2024-12-20 08:13 | disposition home or self-care (01) ==
LOC: HO.MAMMO 08:12
PROVIDERS: PCP Family Medicine; Visit Provider Family Medicine
DX: Z12.31 Encounter for screening mammogram for malignant neoplasm of breast (principal)
CPT/HCPCS: 77063; 77067

== ENCOUNTER → 2024-12-20 08:30 | Outpatient (BNV) | payer OTHER, SELFPAY | PROVIDERS: PCP Family Medicine; Visit Provider Internal Medicine | DX: Z12.31 Encounter for screening mammogram for malignant neoplasm of breast (principal) | CPT/HCPCS: 77063; 77067 ==

== ENCOUNTER 2025-02-11 09:47 | Outpatient (AMB) | payer OTHER, SELFPAY ==
--- NOTE | 2025-02-11 10:16 | A.OFFVIS_ITS ---
Vital Signs 02/11/25 10:17 Height 5 ft 2 in Weight 234 lb 9.149 oz BMI 42.9 BP 122/72 Blood Pressure Location Lt brachial Position Sitting Pulse 76 Pulse Source Monitor Intake Visit Reasons: 6m follow up Postbed Stitcher Required: Yes Postbed Stitcher Name: voice hardy [phone] Allergies No Known Allergies (No Known Allergies*) Allergy (Verified 02/11/25 10:18) Medication List - Last Reconciled 02/11/25 by GAVIN Rangel acetaminophen ER 650 mg PO Q8H PRN atorvastatin 80 mg PO BEDTIME baclofen 10 mg PO TID PRN cholecalciferol (vitamin D3) (Vitamin D3) 50 mcg PO DAILY diclofenac sodium 75 mg PO BID PRN diclofenac sodium 1% 1 ea topical QID diltiazem HCl ER 60 mg PO BID docusate sodium 100 mg PO BID PRN dulaglutide (Trulicity) mg subcut fluoxetine 40 mg PO DAILY fluticasone propionate 50 mcg/actuation 2 sprays intranasal DAILY PRN insulin glargine (Lantus Solostar U-100 Insulin) 8 units subcut DAILY lisinopril 40 mg PO DAILY loratadine 10 mg PO DAILY PRN magnesium oxide 400 mg PO BEDTIME metformin ER 1,000 mg PO BID omeprazole 20 mg PO DAILY@0630 rivaroxaban (Xarelto) 20 mg PO DAILY@1700 sennosides (senna) 17.2 mg PO BEDTIME PRN trazodone 100 mg PO BEDTIME PRN HPI HPI 6m follow up: Details: Ashley is a 59-year-old female past medical history of morbid obesity, hypertension, hyperlipidemia, diabetes, nonischemic cardiomyopathy, bradycardia on Metoprolol, atrial fibrillation/flutter who presents for follow-up after recent Holter monitor. Today she reports that she has been doing much better on the increased dose of diltiazem. She is no longer having any concerning heart palpitations. No lightheadedness, presyncope, syncope. No chest discomfort at rest or with activity. No shortness of breath, PND, orthopnea or edema. She still drinks 1 caffeinated coffee per day. She has previously tried to use her CPAP but states that it is bothersome for her. She is compliant with her meds. No bleeding issues reported. 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 [facility] Medical History Hospital discharge follow-up New onset atrial flutter Poor historian Encounter for screening colonoscopy Cervical cancer screening Women's annual routine gynecological examination Morbid obesity Bacterial vaginosis Vaginal itching Bladder pain Language barrier History of cardioversion Atrial flutter, paroxysmal On beta pat at home On anticoagulant therapy Atrial fibrillation and flutter Atrial fibrillation Diabetes Essential hypertension Abdominal pain Lab test negative for COVID-19 virus Arthritis Anemia GERD (gastroesophageal reflux disease) Hepatitis Depression Hypercholesteremia Diabetes HTN (hypertension) Surgical History History of robot-assisted laparoscopic hysterectomy Hx of abdominal surgery Hx of dilation and curettage Hx of excision of mass Hx of section Hx of tubal ligation Hx of reduction mammoplasty Hx of cholecystectomy Hx of gastric bypass Bariatric surgery status Social History Household Members: Children Housing: Apartment Are you a primary respiratory care technician to a significant other at home: No Do you presently have visiting nurse or other home services: No Alcohol intake: never Comment: history-long ago fall when having issues with knees Patient Tobacco Use Status: Never used Tobacco e-Cigarette/Vaping Use: Never Used Advance Directives Date on File: 11/09/21 service: No Current occupational status: disabled Current occupation: rt handed Female Reproductive History Menstrual Age of Menarche: 11 Review of Systems Const All systems reviewed & are unremarkable except as noted in HPI and below ENT Denies dizziness Card Denies chest pain, Denies chest pain at rest, Denies chest pain with activity, Denies rapid heart rate, Denies pedal edema, Denies edema, Denies leg edema, Denies lightheadedness, Denies palpitations, Denies dyspnea, Denies dyspnea on exertion and Denies orthopnea Resp Denies cough, Denies dyspnea and Denies dyspnea on exertion GI Denies hematochezia and Denies change in stool character Musc Denies abnormal gait, Denies limited range of motion, Denies muscle cramps, Denies muscle weakness, Denies numbness, Denies radiating pain into limb, Denies stiffness and Denies tingling Neuro Denies abnormal gait, Denies dizziness, Denies numbness and Denies tingling Endo Denies palpitations Physical Exam Vital Signs: Last Vital Signs Pulse 76 02/11/25 10:17 BP 122/72 02/11/25 10:17 BMI result Body Mass Index 42.9 Const General: cooperative, healthy appearing, comfortable and no acute distress Orientation/consciousness: patient oriented x3 Neck Neck: Yes normal visual inspection Resp Effort & Inspection: normal respiratory effort Auscultation: clear to auscultation bilaterally, no rales, no rhonchi and no wheezes Cardio Rate: regular rate Rhythm: regular rhythm Heart sounds: S1 normal heart sound present, S2 normal heart sound present, no gallops, no murmurs and no rubs Neuro General: patient oriented x3 Extrem General: Yes normal to inspection, No no pedal edema and No calf tenderness Psych Appearance: grossly normal Mental Status: mental status grossly normal Speech and movement: Normal speech and movement present Office Procedures EKG Details: Today, read by me, sinus rhythm rate 76, Qtc 425ms [id number], Complete Assessment & Plan Assessment & Plan (1) Atrial flutter: Code(s): I48.92 - Unspecified atrial flutter Category: Medical Plan: History of atrial fibrillation/flutter which is currently suppressed. She is on low-dose diltiazem for heart rate control. Dose was increased last visit to 60 mg b.i.d. for reports of heart palpitations. In the past she had bradycardia with metoprolol use. Holter monitor was done 12/03/2024 for 3 days showing sinus rhythm with average heart rate 73, occasional PVCs, no AFib. Currently reporting palpitations are resolved. No med changes at this time. Continue current diltiazem and continue Xarelto for anticoagulation. Cardiology follow- up 6 months, sooner if needed. (2) Cardiomyopathy: Code(s): I42.9 - Cardiomyopathy, unspecified Category: Medical Plan: History of mild nonischemic cardiomyopathy that was thought to be related to elevated atrial fibrillation rates. EF had been as low as 40-45% 10/2023. Nuclear stress test done on 11/23/2021 shows normal myocardial perfusion imaging, EF 46%. AFib now suppressed. She is on lisinopril for neurohormonal modulation. Last Echocardiogram 12/22/2023 showed EF 55-60%, basal inferior akinetic, ascending aorta 3.7 cm. Due to the wall motion abnormality she underwent a repeat pharmacological nuclear stress test on 02/05/2024 showing probable normal myocardial perfusion imaging. Currently no signs of decompensated heart failure and reports no anginal symptoms. Continue diltiazem. Continue lisinopril. s/s HF discussed. Labs followed by PCP. Will reach out to obtain the most recent levels. (3) HTN (hypertension): Code(s): I10 - Essential (primary) hypertension Category: Medical Plan: Blood pressure goal less than 130/80. Well controlled at this time. Continue diltiazem and lisinopril. (4) On anticoagulant therapy: Comment: Xarelto Code(s): Z79.01 - intermodal customer service (current) use of anticoagulants Category: Medical Plan: On Xarelto for stroke risk reduction with AFib, no bleeding issues reported. (5) Sleep apnea: Code(s): G47.30 - Sleep apnea, unspecified Category: Medical Plan: Sleep study done 05/31/2023 shows [id number] obstructive sleep apnea, oxygen saturation below 88% for 6 minutes. She follows with sleep medicine. She tells me she has not been able to wear her CPAP mask consistently due to intolerance. Instructed to further discuss with her sleep medicine provider. Plan I discussed with the patient the importance of continuing her current medication regimen, which has successfully managed her heart palpitations and atrial fibrillation. We reviewed the results of her heart monitor, confirming normal rhythm and no atrial fibrillation. I advised her to maintain regular monitoring of her symptoms and to report any changes or new concerns immediately. A follow- up appointment was scheduled for six months, with the option to return sooner if needed. Patient Instructions: - Continue taking your medications as prescribed. - Report any new symptoms or heart concerns immediately. - Follow up in six months or sooner if needed. Patient was informed and verbally consented to the use of an ambient scribe for clinic note documentation during this visit. Visit time spent on chart review, interview, assessment, orders, documentation. Coding Level of Care Code Est Pt Level 3 (16570) Complex EM visit Add On G2211 Diagnoses Atrial flutter I48.92 Cardiomyopathy I42.9 HTN (hypertension) I10 On anticoagulant therapy Z79.01 Sleep apnea G47.30 CPT Codes EKG - CPT: [id number], Complete ([id number]) Time Spent (min) 22
[2025-02-11 10:17] VITALS: BP 122/72; PULSE 76; BMI 42.9
--- OUTSIDE RECORDS SUMMARY | 2025-02-11 10:31 | XMS_ITS | Encounter Summary ---
Author Organization [email or web address] Address [address] [facility] [address] [place] [address] Care Team Providers Care Quality Improvement Analyst Name Role Phone Cynthia Carson DO Primary Care Provider + [phone] Reason for Visit * Reason Comments Med Refill Encounter Details Date Type Department Care Team ([facility] st Contact Info) Description 04/22/2024 Refill [facility] MEDICINE [address] [place], [place] [phone] Cynthia Carson DO [address] [place], [place] [phone] Social History Tobacco Use Types Packs/Day Years [...] Visit [facility] ADULT DENTAL [address] [place] [address] Maren, Pao [address] [place] [address] documented as of this encounter Visit Diagnoses Not on filedocumented in this encounter Additional Health Concerns Assessment Noted Time PHQ-9 Depression Total Score: 7 11/29/19 24 8:13 AM EDT documented as of this encounter Care Teams Quality Improvement Analyst Relationship Specialty Start Date End Date Cynthia Carson DO [address] [place] [address] PCP - General Family Medicine 03/13/15 documented as of this encounter
== END 2025-02-11 10:40 | disposition home or self-care (01) ==
LOC: HO.HCS 09:47
PROVIDERS: PCP Family Medicine; Visit Provider Nurse Practitioner Family
DX: I48.92 Unspecified atrial flutter (principal); I42.9 Cardiomyopathy, unspecified; I10 Essential (primary) hypertension; Z79.01 Long term (current) use of anticoagulants; G47.30 Sleep apnea, unspecified
CPT/HCPCS: 93010; 99213; G2211

== ENCOUNTER → 2025-02-11 09:47 | Outpatient (BNVA) | payer OTHER, SELFPAY | PROVIDERS: PCP Family Medicine; Visit Provider Nurse Practitioner Family | DX: I10 Essential (primary) hypertension (principal); I42.9 Cardiomyopathy, unspecified; R00.1 Bradycardia, unspecified; I48.92 Unspecified atrial flutter; G47.30 Sleep apnea, unspecified; Z79.01 Long term (current) use of anticoagulants | CPT/HCPCS: 93005; 99212 ==

== ENCOUNTER 2025-04-02 16:13 | Outpatient (REF) | payer OTHER, SELFPAY | END 2025-04-02 16:14 | disposition home or self-care (01) | LOC: HO.HHCLNP 16:13 | PROVIDERS: Visit Provider Family Medicine | DX: N39.0 Urinary tract infection, site not specified (principal) | CPT/HCPCS: 87086 ==

== ENCOUNTER 2025-04-03 10:29 | Outpatient (REF) | payer OTHER, SELFPAY ==
--- OUTSIDE RECORDS SUMMARY | 2025-04-02 10:45 | XMS_ITS | Encounter Summary ---
Author Organization [employer] Address [address] [facility] 7 [place] [address] Care Team Providers Care Prescription Eyeglass Maker Name Role Phone Cynthia Carson DO Primary Care Provider + [phone] Reason for Referral * Medications - Closed Specialty Diagnoses / Procedures Referred By Keyona t Referred To Contact Diagnoses Type 2 diabetes mellitus without complication, with long-term current use of insulin (HCC) Cynthia Carson DO [address] [place] [id number] Phone: tel: fax: Referral ID Status Reason Start Date Expiration Date Visits Re quested Visits Authorized [id number] Closed 1 1 Encounter Details Date Type Department Care Team (Latest Contact Info) Description 04/02/2025 10:45 AM EDT Office Visit [facility] [address] [place] [address] [phone] Cynthia Carson DO [address] [place] [address] Type 2 diabetes mellitus without complication, with long-term current use of insulin (HCC) (Primary Dx); Essential hypertension; Other hyperlipidemia; Depressive disorder; Atrial flutter, unspecified type (CMS/HCC) (HCC); Osteoarthritis of right knee, unspecified osteoarthritis type; Chronic right shoulder pain; Thyroid nodule; MARIANGEL (obstructive sleep apnea); Acute UTI; Healthcare maintenance; Dietary counseling; Exercise counseling; Encounter for immunization Social History Tobacco Use [...] Answer Date Recorded Patient Health Questionnaire-9 Score 9 04/02/2025 Patient Health Questionnaire-9 Score 9 04/02/2025 Last PHQ-9: Questionnaire Data Not on file 1 Housing Stability Answer Date Recorded What is [...] Date Recorded Patient Health Questionnaire-2 Score 2 04/02/2025 Internet Access Answer Date Recorded Internet Access Q1 Yes 10/04/2024 Internet Access Q2 Not on file 10/04/2024 Comments No Sex and Gender Information Value Date Recorded Sex Assigned at Female 05/02/2022 10:25 AM EDT Legal Sex Female 10:25 AM EDT Gender Identity Female 05/02/2022 10:25 AM EDT Sexual Orientation Straight 05/02/2022 10 :25 AM EDT documented as of this encounter Last Filed Vital Signs Vital Sign Reading Time Taken Comments Blood Pressure 140/84 04/02/2025 11:45 AM EDT Pulse 80 04/02/2025 10:59 AM EDT Temperature 36.1 C (96.9 F) 04/02/2025 10:59 AM EDT Respiratory Rate 19 04/02/2025 10:59 AM EDT Oxygen Saturation 99% 04/02/2025 10:59 AM EDT Inhaled Oxygen Concentration - - Weight 109 kg (240 lb 4 oz) 04/02/2025 10:59 AM EDT Height 157.5 cm (5' 2 ) 04/02/2025 10:59 AM EDT Body Mass Index 43.94 04/02/2025 10:59 AM EDT documented in this encounter Functional Status * Over the past 2 weeks, how often have you been bothered by any of the following problems? Question Answer Date of Assessment Author Patient Health Questionnaire -2 Score 2 04/02/2025 2:06 PM EDT Nallely Hernandez MA * Little interest or pleasure in doing things Answer Date of Assessment Author Several days 04/02/2025 2:06 PM EDT Franki Hernandez MA * Feeling down, depressed, or hopeless Answer Date of Assessment Author Several days 04/02/2025 2:06 PM EDT Franki Hernandez MA * Trouble falling or staying asleep, or sleeping too much Answer Date of Assessment Author Several days 04/02/2025 2:06 PM EDT Franki Hernandez MA * Feeling tired or having little energy Answer Date of Assessment Author More than half the days 04/02/2025 2:06 PM EDT Nallely Babin MA * Poor appetite or overeating Answer Date of Assessment Author More than half the days 04/02/2025 2:06 PM EDT Nallely Babin MA * Feeling bad about yourself - or that you are a failure or have let yourself or your family down Answer Date of Assessment Author Not at all 04/02/2025 2:06 PM EDT Franki Hernandez MA * Trouble concentrating on things, such as reading the newspaper or watching television Answer Date of Assessment Author Several days 04/02/2025 2:06 PM EDT Franki Hernandez MA * Moving or speaking so slowly that other people could have noticed? Or the opposite - being so fidgety or restless that you have been moving around a lot more than usual. Answer Date of Assessment Author Several days 04/02/2025 2:06 PM EDT Franki Hernandez MA * Thoughts that you would be better off or hurting yourself in some way Answer Date of Assessment Author Not at all 04/02/2025 2:06 PM EDT Franki Hernandez MA * Patient Health Questionnaire-9 Score Answer Date of Assessment Author 9 04/02/2025 2:06 PM EDT Franki Hernandez MA * How difficult have these problems made it for you to do your work, take care of things at home, or get along with other people? Answer Date of Assessment Author Somewhat difficult 04/02/2025 2:06 PM EDT Nallely Hernandez MA * Over the last 2 weeks, how often have you been bothered by any of the following problems? Question Answer Date of Assessment Author Feeling nervous, anxious, or on edge 0 04/02/2025 2:06 PM EDT Nallely Hernandez MA Not being able to stop or co ntrol worrying 0 04/02/2025 2:06 PM EDT Nallely Hernandez MA Worrying too much about diff erent things 0 04/02/2025 2:06 PM EDT Nallely Hernandez MA Trouble relaxing 0 04/02/2025 2:06 PM EDT Nallely Babin MA Being so restless that it is hard to sit still 0 04/02/2025 2:06 PM EDT Nallely Hernandez MA Becoming easily annoyed or irritable 0 04/02/2025 2:06 PM EDT Nallely Hernandez MA Feeling afraid as if somethi ng awful might happen 0 04/02/2025 2:06 PM EDT Nallely Hernandez MA MARISOL-7 Total Score 0 04/02/2025 2:06 PM EDT Nallely Hernandez MA documented as of this encounter Plan of Treatment Upcoming Encounters Date Type Department Care Team (Late st Contact Info) Description 09/19/2025 9:30 AM EDT Office Visit [facility] [address] [place] [address] Pao Engel [address] [place] [address] Scheduled Orders Name Type Priority Associated Diagnoses Orde r Schedule Culture, Urine, Routine Microbiology Routine Acute UTI Expected: 04/02/2025 (Approximate), Expires: 04/02/2026 T4, Free Lab Routine Type 2 diabetes mellitus without complication, with long-term current use of insulin (CMS/HCC) Essential hypertension Other hyperlipidemia Depressive disorder Atrial flutter, unspecified type (CMS/HCC) Osteoarthritis of right knee, unspecified osteoarthritis type Chronic right shoulder pain Thyroid nodule MARIANGEL (obstructive sleep apnea) Acute UTI Healthcare maintenance Dietary counseling Exercise counseling Encounter for immunization Expected: 04/03/2025 (Approximate), Expires: 04/03/2026 Vitamin D, 25-Hydroxy, Total, Immunoassay Lab Routine Type 2 diabetes mellitus without complication, with long-term current use of insulin (CMS/HCC) Essential hypertension Other hyperlipidemia Depressive disorder Atrial flutter, unspecified type (CMS/HCC) Osteoarthritis of right knee, unspecified osteoarthritis type Chronic right shoulder pain Thyroid nodule MARIANGEL (obstructive sleep apnea) Acute UTI Healthcare maintenance Dietary counseling Exercise counseling Encounter for immunization Expected: 04/03/2025 (Approximate), Expires: 04/03/2026 Lipid Panel, Standard Lab Routine Type 2 diabetes mellitus without complication, with long-term current use of insulin (CMS/HCC) Essential hypertension Other hyperlipidemia Depressive disorder Atrial flutter, unspecified type (CMS/HCC) Osteoarthritis of right knee, unspecified osteoarthritis type Chronic right shoulder pain Thyroid nodule MARIANGEL (obstructive sleep apnea) Acute UTI Healthcare maintenance Dietary counseling Exercise counseling Encounter for immunization Expected: 04/03/2025 (Approximate), Expires: 04/03/2026 TSH Lab Routine Type 2 diabetes mellitus without complication, with long-term current use of insulin (CMS/HCC) Essential hypertension Other hyperlipidemia Depressive disorder Atrial flutter, unspecified type (CMS/HCC) Osteoarthritis of right knee, unspecified osteoarthritis type Chronic right shoulder pain Thyroid nodule MARIANGEL (obstructive sleep apnea) Acute UTI Healthcare maintenance Dietary counseling Exercise counseling Encounter for immunization Expected: 04/03/2025 (Approximate), Expires: 04/03/2026 Hepatic Function Panel Lab Routine Type 2 diabetes mellitus without complication, with long-term current use of insulin (CMS/HCC) Essential hypertension Other hyperlipidemia Depressive disorder Atrial flutter, unspecified type (CMS/HCC) Osteoarthritis of right knee, unspecified osteoarthritis type Chronic right shoulder pain Thyroid nodule MARIANGEL (obstructive sleep apnea) Acute UTI Healthcare maintenance Dietary counseling Exercise counseling Encounter for immunization Expected: 04/03/2025 (Approximate), Expires: 04/03/2026 Hemoglobin A1c Lab Routine Type 2 diabetes mellitus without complication, with long-term current use of insulin (CMS/HCC) Essential hypertension Other hyperlipidemia Depressive disorder Atrial flutter, unspecified type (CMS/HCC) Osteoarthritis of right knee, unspecified osteoarthritis type Chronic right shoulder pain Thyroid nodule MARIANGEL (obstructive sleep apnea) Acute UTI Healthcare maintenance Dietary counseling Exercise counseling Encounter for immunization Expected: 04/03/2025 (Approximate), Expires: 04/03/2026 Basic Metabolic Panel Lab Routine Type 2 diabetes mellitus without complication, with long-term current use of insulin (CMS/HCC) Essential hypertension Other hyperlipidemia Depressive disorder Atrial flutter, unspecified type (CMS/HCC) Osteoarthritis of right knee, unspecified osteoarthritis type Chronic right shoulder pain Thyroid nodule MARIANGEL (obstructive sleep apnea) Acute UTI Healthcare maintenance Dietary counseling Exercise counseling Encounter for immunization Expected: 04/03/2025 (Approximate), Expires: 04/03/2026 CBC Lab Routine Type 2 diabetes mellitus without complication, with long-term current use of insulin (CMS/HCC) Essential hypertension Other hyperlipidemia Depressive disorder Atrial flutter, unspecified type (CMS/HCC) Osteoarthritis of right knee, unspecified osteoarthritis type Chronic right shoulder pain Thyroid nodule MARIANGEL (obstructive sleep apnea) Acute UTI Healthcare maintenance Dietary counseling Exercise counseling Encounter for immunization Expected: 04/03/2025, Expires: 04/03/2026 Albumin, Random Urine W/Creatinine Lab Routine Type 2 diabetes mellitus without complication, with long-term current use of insulin (CMS/HCC) Essential hypertension Other hyperlipidemia Depressive disorder Atrial flutter, unspecified type (CMS/HCC) Osteoarthritis of right knee, unspecified osteoarthritis type Chronic right shoulder pain Thyroid nodule MARIANGEL (obstructive sleep apnea) Acute UTI Healthcare maintenance Dietary counseling Exercise counseling Encounter for immunization Expected: 04/03/2025 (Approximate), Expires: 04/03/2026 documented as of this encounter Procedures Procedure Name Priority Date/Time Associated Diagnosis Comments XR SHOULDER 2+ VIEWS RIGHT Routine 04/03/2025 11:00 AM EDT Chronic right shoulder pain POCT URINALYSIS DIPSTICK Routine 04/02/2025 2:04 PM EDT Acute UTI POCT GLYCATED HEMOGLOBIN, TOTAL Routine 04/02/2025 11:02 AM EDT Type 2 diabetes mellitus without complication, with long-term current use of insulin (HCC) POCT GLUCOSE Routine 04/02/2025 11:01 AM EDT Type 2 diabetes mellitus without complication, with long-term current use of insulin (HCC) documented in this encounter Results * XR Shoulder 2+ Views Right (04/03/2025 11:00 AM EDT) Anatomical Region Laterality Modality Upper Extremities, Shoulder Right Radi ographic Imaging 04/03/2025 11:0 0 AM EDT Narrative 04/03/2025 11:09 [place] [address] XRay Report Signed Patient: Ashley Pavon MR#: [id number] : 1965 Acct:[id number] Age/Sex: 59 / F ADM Date: 04/03/25 Loc: HO.HHCX Attending Dr: Cynthia Carson DO Ordering Physician: Cynthia Carson DO Date of Service: 04/03/25 Procedure(s): XR shoulder RT min 2V Accession Number(s): [id number] cc: Cynthia Carson DO Reason for Exam: worsening R shoulder pain EXAMINATION: XR SHOULDER, RIGHT CLINICAL INFORMATION: worsening R shoulder pain COMPARISON: June 09, 2024 TECHNIQUE: AP external rotation, Grashey, scapular Y, and axillary views of the right shoulder. FINDINGS: Inadequate collimation. No acute cortical disruption or malalignment. Sclerosis along the articular surface with subchondral cyst formation at the acromioclavicular joint and the greater tuberosity right humerus. No lytic or blastic lesions. XR/XR shoulder RT min 2V IMPRESSION: Osteoarthrosis/osteoarthritis, acromioclavicular joint. Electronically signed by: Yuan Ogden MD 04/03/2025 11:06 AM EDT RP Dictated By: Yuan Dee MD Signed By: <Electronically signed by Yuan Gorman MD in OV> 04/03/25 1106 DD/ 1100 TD/TT: 04/03/25 110 Lock Master: Procedure Note Donotuseinterpreter, Image - 04/03/[address] [address] XRay Report Signed Patient: Ashley PavonMR#: [id number] : 1965Acct:[id number] Age/Sex: 59 / FADM Date: 04/03/25 Loc: HO.HHCX Attending Dr: Cynthia Carson DO Ordering Physician: Cynthia Carson DO Date of Service: 04/03/25 Procedure(s): XR shoulder RT min 2V Accession Number(s): [id number] cc: Cynthia Carson DO Reason for Exam: worsening R shoulder pain EXAMINATION: XR SHOULDER, RIGHT CLINICAL INFORMATION: worsening R shoulder pain COMPARISON: June 09, 2024 TECHNIQUE: AP external rotation, Grashey, scapular Y, and axillary views of the right shoulder. FINDINGS: Inadequate collimation. No acute cortical disruption or malalignment. Sclerosis along the articular surface with subchondral cyst formation at the acromioclavicular joint and the greater tuberosity right humerus. No lytic or blastic lesions. XR/XR shoulder RT min 2V IMPRESSION: Osteoarthrosis/osteoarthritis, acromioclavicular joint. Electronically signed by: Yuan Ogden MD 04/03/2025 11:06 AM EDT RP Dictated By: Yuan Dee MD Signed By: <Electronically signed by Yuan Gorman MDin OV> 04/03/25 1106 DD/ 1100 TD/TT: 04/03/25 110 Lock Master: us Cynthia Jurcsak DO IMG XR PROCEDURES Edited Res ult - Final * (ABNORMAL) POCT Urinalysis (04/02/2025 2:04 PM EDT) Color, UA Yellow Clarity, UA Cloudy Glucose, UA Negative Bilirubin, UA Negative Ketones, UA Negative Spec Grav, UA 1.030 Blood, UA Negative Negative, None Detected pH, UA 6.0 Protein, UA Trace Urobilinogen, UA 0.2 Leukocytes, UA Trace Negative, Rare, Trace Nitrite, UA Positive(A) Negative, None Detected QC Media Lot # [id number] Lot# Expiration Date Urine 04/02/2025 2:04 PM EDT Result [facility] Cynthia Yamileth SALOMON POINT OF CARE TEST ENTER/LISA T ORDERABLES Final Result * (ABNORMAL) POCT Hgb A1c (04/02/2025 11:02 AM EDT) Hemoglobin A1C 7.6(A) 4.0 - 5.7 % [employer] Media Lot # [id number] Lot# Expiration Date Blood 04/02/2025 11:0 2 AM EDT Result [facility] Cynthia Carson POINT OF CARE TEST ENTER/LISA T ORDERABLES Final Result * (ABNORMAL) POCT Glucose (04/02/2025 11:01 AM EDT) Pathologist [facility] Glucose Blood, POC 260(A) 60 - 200 mg/dL [employer] Lot # [id number] Lot# Expiration Date 292 Blood Capillary blood specimen / Unknown 04/02/2025 11:01 AM EDT Result [facility] Cynthia Carson DO POINT OF CARE TEST ENTER/LISA T ORDERABLES Final Result documented in this encounter Visit Diagnoses Diagnosis Type 2 diabetes mellitus without complication, with long-term current use of insulin (HCC)- Primary Essential hypertension Unspecified essential hypertension Other hyperlipidemia Depressive disorder Depressive disorder, not elsewhere classified Atrial flutter, unspecified type (CMS/HCC) (HCC) Osteoarthritis of right knee, unspecified osteoarthritis type Chronic right shoulder pain Pain in joint, shoulder region Thyroid nodule Nontoxic uninodular goiter MARIANGEL (obstructive sleep apnea) Obstructive sleep apnea (adult) (pediatric) Acute UTI Urinary tract infection, site not specified Healthcare maintenance Dietary counseling Dietary surveillance and counseling Exercise counseling Encounter for immunization documented in this encounter Additional Health Concerns Assessment Noted Time PHQ-9 Depression Total Score: 9 04/02/20 25 2:06 PM EDT documented as of this encounter Care Teams Prescription Eyeglass Maker Relationship Specialty Start Date End Date Cynthia Carson DO [address] [place] [address] PCP - General Family Medicine 03/13/15 documented as of this encounter
--- NOTE | ~2025-04-03 | XR_ITS ---
EXAMINATION: XR SHOULDER, RIGHT CLINICAL INFORMATION: worsening R shoulder pain COMPARISON: June 09, 2024 TECHNIQUE: AP external rotation, Grashey, scapular Y, and axillary views of the right shoulder. FINDINGS: Inadequate collimation. No acute cortical disruption or malalignment. Sclerosis along the articular surface with subchondral cyst formation at the acromioclavicular joint and the greater tuberosity right humerus. No lytic or blastic lesions. XR/XR shoulder RT min 2V IMPRESSION: Osteoarthrosis/osteoarthritis, acromioclavicular joint. Electronically signed by: Yuan Ogden MD 04/03/2025 11:06 AM EDT
--- OUTSIDE RECORDS SUMMARY | 2025-04-03 12:15 | XMS_ITS | Encounter Summary ---
Author Organization [employer] Address [address] [facility] 7t [place] [address] Care Team Providers Care Airline Mechanic Name Role Phone Yamileth Cynthia Primary Care Provider + [phone] Encounter Details Date Type Department Care Team (Late st Contact Info) Description 11/26/2024 Orders Only [facility] [address] [place], [place] [phone] ProviderGerard MD Social History Tobacco Use Types Packs/Day Years [...] Description 09/19/2025 9:30 AM EDT Office Visit [facility] ADULT DENTAL [address] [place] [address] Maren, Pao [address] [place] [address] documented as of this encounter Procedures Procedure Name Priority Date/Time Associated Diagnosis Comments BI MAMMOGRAM SCREENING TOMOSYNTHESIS BILATERAL Routine 12/20/2024 8:20 AM EDT HM COLONOSCOPY Routine 03/26/2022 11:12 AM EDT documented in this encounter Results * BI Mammogram Screening Tomosynthesis Bilateral (12/20/2024 8:20 AM EDT) Anatomical Region Laterality Modality Breast Bilateral Mammography 12/20/2024 8:20 AM EDT Narrative 12/26/2024 11:31 AM EDT [facility] [address] [place] [address] Mammography Report Signed Patient: Ashley Pavon MR#: [id number] : 1965 Acct:[id number] Age/Sex: 59 / F ADM Date: 12/20/24 Loc: MAMMO Attending Dr: Cynthia Carson DO Ordering Physician: Cynthia Carson DO Results: 2B enign Findings Date of Service: 12/20/24 Follow Up: 1 Year From Orig ina Mammogram Procedure(s): MM tomosynthesis screening BI Accession Number(s): [id number] cc: Cynthia Carson DO EXAMINATION: MM SCREENING DIGITAL BREAST TOMOSYNTHESIS, BILATERAL CLINICAL INFORMATION: Screening. Asymptomatic. COMPARISON: Mammography: Comparison is made with available priors TECHNIQUE: Digital breast mammography with tomosynthesis is performed in both the craniocaudal and mediolateral oblique views along with computer-aided detection (CAD). FINDINGS: There are scattered areas of fibroglandular density (ACR BI-RADS breast composition Category b). Left marker clip. Bilateral reduction. There are no significant masses, abnormal calcifications, or other abnormalities. MM/MM tomosynthesis screening BI IMPRESSION: No mammographic evidence of malignancy. ASSESSMENT: BI-RADS BI-RADS 2 - Benign Findings RECOMMENDATION: Routine annual mammography screening. 1 year F/U This examination should not preclude the clinical evaluation of a suspicious palpable abnormality. This patient's information was entered into a reminder system with a target due date for their next mammogram. Electronically signed by: Jeanne Toledo DO 12/26/2024 11:27 AM EDT Dictated By: Jeanne Toledo DO Signed By: <Electronically signed by Jeanne Toledo DO in OV> 12/26/24 1127 DD/ 0820 TD/TT: 12/20/24 0840 Data Programmer: Procedure Note Donotuseinterpreter, Image - 12/26/2024 [facility] [address] [place] [address] Mammography Report Signed Patient: Ashley PavonMR#: [id number] : 1965Acct:[id number] Age/Sex: 59 / FADM Date: 12/20/24 Loc: MAMMO Attending Dr: Cynthia Carson DO Ordering Physician: Cynthia Carsonults: 2B enign Findings Date of Service: 12/20/24Follow Up: 1 Year From Orig inal Mammogram Procedure(s): MM tomosynthesis screening BI Accession Number(s): [id number] cc: Cynthia Carson DO EXAMINATION: MM SCREENING DIGITAL BREAST TOMOSYNTHESIS, BILATERAL CLINICAL INFORMATION: Screening. Asymptomatic. COMPARISON: Mammography: Comparison is made with available priors TECHNIQUE: Digital breast mammography with tomosynthesis is performed in both the craniocaudal and mediolateral oblique views along with computer-aided detection (CAD). FINDINGS: There are scattered areas of fibroglandular density (ACR BI-RADS breast composition Category b). Left marker clip. Bilateral reduction. There are no significant masses, abnormal calcifications, or other abnormalities. MM/MM tomosynthesis screening BI IMPRESSION: No mammographic evidence of malignancy. ASSESSMENT: BI-RADS BI-RADS 2 - Benign Findings RECOMMENDATION: Routine annual mammography screening. 1 year F/U This examination should not preclude the clinical evaluation of a suspicious palpable abnormality. This patient's information was entered into a reminder system with a target due date for their next mammogram. Electronically signed by: Jeanne Toledo DO 12/26/2024 11:27 AM EDT Dictated By: Jeanne Toledo DO Signed By: <Electronically signed by Jeanne Toledo DO in OV> 12/26/24 1127 DD/ 0820 TD/TT: 12/20/24 0840 Data Programmer: us Cynthia Carson DO IMG BI PROCEDURES Final Resu lt * Hm Colonoscopy (03/26/2022 11:12 AM EDT) Colonoscopy Normal Normal Narrative Ana Serrano - 03/26/2022 11:12 AM EDT Recommended 5 years . See legacy note 03/26/2022 us Historical Provider HEALTH MAINTENANCE Edited Result - Final documented in this encounter Visit Diagnoses Not on filedocumented in this encounter Additional Health Concerns Assessment Noted Time PHQ-9 Depression Total Score: 5 10/16/19 25 10:16 AM EDT documented as of this encounter Care Teams Airline Mechanic Relationship Specialty Start Date End Date Cynthia Carson DO [address] [place] [address] PCP - General Family Medicine 03/13/15 documented as of this encounter
--- OUTSIDE RECORDS SUMMARY | 2025-04-03 12:15 | XMS_ITS | Encounter Summary ---
Author Organization [employer] Address [address] [facility] 7t [place] [address] Care Team Providers Care Library Associate Name Role Phone Cynthia Carson DO Primary Care Provider + [phone] Reason for Visit * Reason Comments Med Refill Encounter Details Date Type Department Care Team ([facility] st Contact Info) Description 04/02/2025 Refill [facility] [address] [place], [place] [phone] Cynthia Carson DO [address] [place], [place] [phone] Essential hypertension; Chronic constipation Social History Tobacco Use Types [...] Description 09/19/2025 9:30 AM EDT Office Visit [facility] AD[facility] [address] [place] [address] Maren, Pao [address] [place] [address] documented as of this encounter Visit Diagnoses Diagnosis Essential hypertension Unspecified essential hypertension Chronic constipation Unspecified constipation documented in this encounter Additional Health Concerns Assessment Noted Time PHQ-9 Depression Total Score: 9 04/02/20 25 2:06 PM EDT documented as of this encounter Care Teams Library Associate Relationship Specialty Start Date End Date Cynthia Carson DO [address] [place] [address] PCP - General Family Medicine 03/13/15 documented as of this encounter
--- OUTSIDE RECORDS SUMMARY | 2025-04-03 12:15 | XMS_ITS | Encounter Summary ---
Author Organization [employer] Address [address] [facility] [address] [place] [address] Care Team Providers Care Welcome Center Agent Name Role Phone Cynthia Carson DO Primary Care Provider + [phone] Reason for Visit * Reason Onset Date Comments Chart Prep 04/01/2025 Encounter Details Date Type Department Care Team ([facility] st Contact Info) Description 04/01/2025 Telephone [facility] [address] [place] [address] Cynthia Carson DO [address] [place], [place] [phone] Chart Prep Social History Tobacco Use Types Packs/Day Years [...] encounter Miscellaneous Notes * Telephone Encounter - Nallely Hernandez MA - 04/01/2025 8:49 AM EDT Chart Prep Labs: done Images: done Referrals: not applicable Vaccines due: Covid, Flu, and Hep B Screenings: pap smear, eye exam, and foot exam Overdue care gaps: A1c, Glucose, PHQ-9, and MARISOL-7 documented in this encounter Plan of Treatment Upcoming Encounters Date Type Department Care Team (Late st Contact Info) Description 09/19/2025 9:30 AM EDT Office Visit [facility] [address] [place] [address] Maren, Pao [address] [place] [address] documented as of this encounter Visit Diagnoses Not on filedocumented in this encounter Additional Health Concerns Assessment Noted Time PHQ-9 Depression Total Score: 5 10/16/19 25 10:16 AM EDT documented as of this encounter Care Teams Welcome Center Agent Relationship Specialty Start Date End Date Cynthia Carson DO [address] [place] [address] PCP - General Family Medicine 03/13/15 documented as of this encounter
--- OUTSIDE RECORDS SUMMARY | 2025-04-03 12:15 | XMS_ITS | Encounter Summary ---
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 House Laborer Name Role Phone Cynthia Carson DO Primary Care Provider + [phone] Reason for Visit * Reason Onset Date Comments Med Refill 04/02/2025 Encounter Details Date Type Department Care Team (Late st Contact Info) Description 04/02/2025 Refill [facility] [address] [place] [address] Cynthia Carson DO [address] [place], [place] [phone] Social History Tobacco Use Types Packs/Day Years [...] AM EDT documented as of this encounter Functional Status * Over the [...] Author Not at all 04/02/2025 2:06 PM BRISEIDAT Franki Hernandez MA * Patient Health Questionnaire-9 Score Answer Date of Assessment Author 9 04/02/2025 2:06 PM EDT Franki Hernandez MA * How difficult have these problems made it for you to do your work, take care of things at home, or get along with other people? Answer Date of Assessment Author Somewhat difficult 04/02/2025 2:06 PM Nallely Marcelo MA * Over the last 2 weeks, how often have you been bothered by any of the following problems? Question Answer Date of Assessment Author Feeling nervous, anxious, or on edge 0 04/02/2025 2:06 PM EDT Nallely Hernandez MA Not being able to stop or co ntrol worrying 0 04/02/2025 2:06 PM BRISEIDAT Nallely Hernandez MA Worrying too much about diff erent things 0 04/02/2025 2:06 PM EDT Nallely Hernandez MA Trouble relaxing 0 04/02/2025 2:06 PM EDT Nallely Babin MA Being so restless that it is hard to sit still 0 04/02/2025 2:06 PM BRISEIDAT Nallely Hernandez MA Becoming easily annoyed or [...] Description 09/19/2025 9:30 AM EDT Office Visit [facility] [address] [place] [address] Maren Pao [address] [place] [address] documented as of this encounter Visit Diagnoses Not on filedocumented in this encounter Additional Health Concerns Assessment Noted Time PHQ-9 Depression Total Score: 9 04/02/20 25 2:06 PM EDT documented as of this encounter Care Teams Packing House Laborer Relationship Specialty Start Date End Date Cynthia Carson DO [address] [place] [address] PCP - General Family Medicine 03/13/15 documented as of this encounter
--- OUTSIDE RECORDS SUMMARY | 2025-04-03 12:15 | XMS_ITS | Encounter Summary ---
Author Organization [employer] [employer] Address [address] [facility] [address] [place] [address] Care Team Providers Care Customs Manager Name Role Phone Cynthia Carson DO Primary Care Provider + [phone] Reason for Visit * Reason Comments Med Refill Encounter Details Date Type Department Care Team ([facility] st Contact Info) Description 04/22/2024 Refill [facility] [address] [place], [place] [phone] Cynthia Carson DO [address] [place], [place] [phone] Social History Tobacco Use Types Packs/Day Years [...] AM EDT Office Visit [facility] [address] [place] [address] Maren, Pao [address] [place] [address] documented as of this encounter Visit Diagnoses Not on filedocumented in this encounter Additional Health Concerns Assessment Noted Time PHQ-9 Depression Total Score: 7 11/29/19 24 8:13 AM EDT documented as of this encounter Care Teams Customs Manager Relationship Specialty Start Date End Date Cynthia Carson DO [address] [place] [address] PCP - General Family Medicine 03/13/15 documented as of this encounter
--- OUTSIDE RECORDS SUMMARY | 2025-04-03 12:15 | XMS_ITS | Encounter Summary ---
Author Organization [employer] Address [address] [place] [address] Care Team Providers Care Insurance Account Representative Name Role Phone DebbiCynthia baird Primary Care Provider + [phone] Encounter Details Date Type Department Care Team (Latest Contact Info) Description 04/02/2025 Travel Social History Tobacco Use Types Packs/Day [...] Description 09/19/2025 9:30 AM EDT Office Visit [facility] [address] [place] [address] Pao Engel [address] [place] [address] documented as of this encounter Visit Diagnoses Not on filedocumented in this encounter Additional Health Concerns Assessment Noted Time PHQ-9 Depression Total Score: 9 04/02/20 25 2:06 PM EDT documented as of this encounter Care Teams Insurance Account Representative Relationship Specialty Start Date End Date Cynthia Carson DO [address] [place] [address] PCP - General Family Medicine 03/13/15 documented as of this encounter
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
--- OUTSIDE RECORDS SUMMARY | 2025-04-03 12:16 | XMS_ITS | Encounter Summary ---
Author Organization [employer] [facility] Address [address] [place] [address] [address] [place] [address] Care Team Providers Care Real Estate Investor Name Role Phone Cynthia Carson DO Primary Care Provider + [phone] Encounter Details Date Type Department Care Team (Latest Contact Info) Description 08/29/2018 Abstract [facility] CONVERSIONS Dental, Provider, DDS Social History Tobacco [...] Care Team ( st Contact Info) Description 09/19/2025 9:30 AM EDT Office Visit [facility] ADULT DENTAL [address] [place] [address] Maren, Pao [address] [place] [address] documented as of this encounter Visit Diagnoses Not on filedocumented in this encounter Care Teams Real Estate Investor Relationship Specialty Start Date End Date Cynthia Carson DO [address] [place] [address] PCP - General Family Medicine 03/13/15 documented as of this encounter
--- OUTSIDE RECORDS SUMMARY | 2025-04-03 12:16 | XMS_ITS | Encounter Summary ---
Author Organization [email or web address] Address [address] [facility] [address] [place] [address] Care Team Providers Care Report Specialist Name Role Phone DebbiCynthia baird Primary Care Provider + [phone] Reason for Visit * Reason Comments Med Refill Encounter Details Date Type Department Care Team (Late st Contact Info) Description 09/23/2022 Refill [facility] [address] [place] [address] Mary Aguiar MD [address] [place] [address] Social History Tobacco Use Types Packs/Day Years [...] 09/19/2025 9:30 AM EDT Office Visit [facility] ADULT DENTAL [address] [place] [address] Pao Engel [address] [place] [address] documented as of this encounter Visit Diagnoses Not on filedocumented in this encounter Additional Health Concerns Assessment Noted Time PHQ-9 Depression Total Score: 0 09/15/19 23 11:12 AM EDT documented as of this encounter Care Teams Report Specialist Relationship Specialty Start Date End Date Cynthia Carson DO [address] [place] [address] PCP - General Family Medicine 03/13/15 documented as of this encounter
--- OUTSIDE RECORDS SUMMARY | 2025-04-03 12:16 | XMS_ITS | Encounter Summary ---
Author Organization [employer] Address [address] [facility] 7t [place] [address] Care Team Providers Care Consumer Lending Manager Name Role Phone Yamileth Cynthia Primary Care Provider + [phone] Reason for Visit * Reason Onset Date Comments appt 01/02/2024 Encounter Details Date Type Department Care Team ([facility] st Contact Info) Description 01/02/2024 Telephone [facility] ADULT D[facility] [address] [place] [address] Katheryn Ace, DDS [address] [place] [address] appt Social History Tobacco Use Types Packs/Day [...] impression that perhaps appt was requested in [facility]. I did request it now but she is interested in getting an appt soon because she states she has been waitingfor a long time DR documented in this encounter Plan of Treatment Upcoming Encounters Date Type Department Care Team (Late st Contact Info) Description 09/19/2025 9:30 AM EDT Office Visit [facility] [address] [place] [address] Osmin Engelaris [address] [place] [address] documented as of this encounter Visit Diagnoses Not on filedocumented in this encounter Additional Health Concerns Assessment Noted Time PHQ-9 Depression Total Score: 7 11/29/19 24 8:13 AM EDT documented as of this encounter Care Teams Consumer Lending Manager Relationship Specialty Start Date End Date Cynthia Carson DO [address] [place] [address] PCP - General Family Medicine 03/13/15 documented as of this encounter
--- OUTSIDE RECORDS SUMMARY | 2025-04-03 12:16 | XMS_ITS | Encounter Summary ---
Author Organization [employer] Address 75 [facility] 7t [place] [address] Care Team Providers Care Proposition Player Name Role Phone Cynthia Carson DO Primary Care Provider + [phone] Reason for Visit * Reason Comments Med Refill Encounter Details Date Type Department Care Team ([facility] st Contact Info) Description 07/31/2023 Refill [facility] [address] [place], [place] [phone] Cynthia Carson DO [address] [place], [place] [phone] Hypomagnesemia Social History Tobacco Use Types Packs/Day [...] Description 09/19/2025 9:30 AM EDT Office Visit [facility] ADULT DENTAL [address] [place] [address] Maren, Pao [address] [place] [address] documented as of this encounter Visit Diagnoses Diagnosis Hypomagnesemia Disorders of magnesium metabolism documented in this encounter Additional Health Concerns Assessment Noted Time PHQ-9 Depression Total Score: 0 09/15/19 11:12 AM EDT documented as of this encounter Care Teams Proposition Player Relationship Specialty Start Date End Date Cynthia Carson DO [address] [place] [address] PCP - General Family Medicine 03/13/15 documented as of this encounter
--- OUTSIDE RECORDS SUMMARY | 2025-04-03 12:16 | XMS_ITS | Encounter Summary ---
Author Organization [facility] Address [address] [place] [address] 7t [place] [address] Care Team Providers Care Management Information Systems Director Name Role Phone JenelleCynthia beckwith Primary Care Provider + [phone] Reason for Visit * Reason Comments Med Refill Encounter Details Date Type Department Care Team (Late st Contact Info) Description 03/08/2023 Refill [facility] [address] [place], [place] [phone] Mary Aguiar MD [address] [place] [address] Social History Tobacco Use Types Packs/Day Years [...] Description 09/19/2025 9:30 AM EDT Office Visit [facility] ADULT DENTAL [address] [place], [place] [phone] Pao Engel [address] [place] [address] documented as of this encounter Visit Diagnoses Not on filedocumented in this encounter Additional Health Concerns Assessment Noted Time PHQ-9 Depression Total Score: 0 09/15/19 23 11:12 AM EDT documented as of this encounter Care Teams Management Information Systems Director Relationship Specialty Start Date End Date Cynthia Carson DO [address] [place] [address] PCP - General Family Medicine 03/13/15 documented as of this encounter
--- OUTSIDE RECORDS SUMMARY | 2025-04-03 12:16 | XMS_ITS | Encounter Summary ---
Author Organization [employer] Address [address] [facility] [address] 7[address] [place] [address] Care Team Providers Care Glove Presser Name Role Phone Cynthia Carson DO Primary Care Provider + [phone] Reason for Visit * Reason Comments Med Refill Encounter Details Date Type Department Care Team ([facility] st Contact Info) Description 06/05/2023 Refill [facility] MED & PEDS [address] [place], [place] [phone] Cynthia Carson DO [address] [place] [address] Chronic constipation Social History Tobacco Use Types [...] Description 09/19/2025 9:30 AM EDT Office Visit [facility] ADULT DENTAL [address] [place] [address] Osmin Engelaris [address] [place] [address] documented as of this encounter Visit Diagnoses Diagnosis Chronic constipation Unspecified constipation documented in this encounter Additional Health Concerns Assessment Noted Time PHQ-9 Depression Total Score: 0 09/15/19 11:12 AM EDT documented as of this encounter Care Teams Glove Presser Relationship Specialty Start Date End Date Cynthia Carson DO [address] [place] [address] PCP - General Family Medicine 03/13/15 documented as of this encounter
--- OUTSIDE RECORDS SUMMARY | 2025-04-03 12:16 | XMS_ITS | Encounter Summary ---
Author Organization [employer] Address [address] [facility] [address] 7[address] [place] [address] Care Team Providers Care Supervisor Painting Department Name Role Phone JenelleCynthia beckwith Primary Care Provider + [phone] Encounter Details Date Type Department Care Team (Late Contact Info) Description 09/09/2022 Orders Only [facility] [address] [place], [place] [phone] Danielito Gonzalez FNP Essential hypertension (Primary Dx); Type 2 diabetes mellitus with diabetic nephropathy, without long-term current use of insulin ([facility]); Hyperlipidemia, unspecified hyperlipidemia type; Diabetes mellitus due to underlying condition with other diabetic kidney complication ([facility]) Social History Tobacco Use Types Packs/Day [...] Department Care Team (Late Contact Info) Description 09/19/2025 9:30 AM EDT Office Visit [facility] ADULT DENTAL [address] [place] [address] Pao Engel [address] [place] [address] Scheduled Orders Name Type Priority Associated Diagnoses Orde r Schedule CBC auto differential Lab Routine Essential hypertension Type 2 diabetes mellitus with diabetic nephropathy, without long-term current use of insulin ([facility]/HCC) Hyperlipidemia, unspecified hyperlipidemia type Expected: 09/09/2022 (Approximate), Expires: 09/10/2023 Comprehensive metabolic panel Lab Routine Essential hypertension Type 2 diabetes mellitus with diabetic nephropathy, without long-term current use of insulin ([facility]/HCC) Hyperlipidemia, unspecified hyperlipidemia type Expected: 09/09/2022 (Approximate), Expires: 09/10/2023 documented as of this encounter Visit Diagnoses Diagnosis Essential hypertension- Primary Unspecified essential hypertension Type 2 diabetes mellitus with diabetic nephropathy, without long-term current use of insulin (HCC) Hyperlipidemia, unspecified hyperlipidemia type Diabetes mellitus due to underlying condition with other diabetic kidney complication (HCC) documented in this encounter Care Teams Supervisor Painting Department Relationship Specialty Start Date End Date Cynthia Carson DO [address] [place] [address] PCP - General Family Medicine 03/13/15 documented as of this encounter
--- OUTSIDE RECORDS SUMMARY | 2025-04-03 12:16 | XMS_ITS | Encounter Summary ---
Author Organization [employer] Address 75 [facility] 7t [place] [address] Care Team Providers Care Ui Software Engineer Name Role Phone Cynthia Carson DO Primary Care Provider + [phone] Reason for Visit * Reason Comments Med Refill Encounter Details Date Type Department Care Team (Late Contact Info) Description 12/16/2022 Refill [facility] CH[facility] MED & PEDS [address] [place], [place] [phone] Cynthia Carson DO [address] [place] [address] Social History Tobacco Use Types Packs/Day Years [...] Description 09/19/2025 9:30 AM EDT Office Visit [facility] ADULT DENTAL [address] [place] [address] Pao Engel [address] [place] [address] documented as of this encounter Visit Diagnoses Not on filedocumented in this encounter Additional Health Concerns Assessment Noted Time PHQ-9 Depression Total Score: 0 09/15/19 23 11:12 AM EDT documented as of this encounter Care Teams Ui Software Engineer Relationship Specialty Start Date End Date Cynthia Carson DO [address] [place] [address] PCP - General Family Medicine 03/13/15 documented as of this encounter
== END 2025-04-03 10:30 | disposition home or self-care (01) ==
LOC: HO.HHCX 10:29
PROVIDERS: PCP Family Medicine; Visit Provider Family Medicine
DX: M25.511 Pain in right shoulder (principal); G89.29 Other chronic pain
CPT/HCPCS: 73030

== ENCOUNTER → 2025-04-03 10:36 | Outpatient (BNV) | payer OTHER, SELFPAY | PROVIDERS: PCP Family Medicine; Visit Provider Radiology Diagnostic Radiology | DX: M19.011 Primary osteoarthritis, right shoulder (principal) | CPT/HCPCS: 73030 ==

== ENCOUNTER 2025-05-19 14:16 | Emergency (ER) | payer OTHER, SELFPAY ==
--- NOTE | ~2025-05-19 | CT_ITS ---
EXAMINATION: CT HEAD WITHOUT CONTRAST CLINICAL INFORMATION: Dizziness COMPARISON: 03/29/2023 TECHNIQUE: Contiguous axial imaging was performed from the skull base to vertex without intravenous administration of contrast. This CT examination was performed using dose optimization techniques as appropriate, variously including the following: *Automated exposure control *Adjustment of mA and/or kV according to patient size (this includes techniques or standardized protocols for targeted exams where dose is matched to indication/reason for exam; i.e. extremities or head) *Use of iterative reconstruction technique FINDINGS: There is no acute ischemic change. There is no intracranial hemorrhage. There is no mass-effect or midline shift. Empty sella is again noted. Basal cisterns and ventricles are within normal limits for age/cerebral volume. Orbits are symmetrical and unremarkable. Paranasal sinuses and mastoid air cells are pneumatized. There is hyperostosis frontalis. CT/CT head/brain wo IV con IMPRESSION: No acute intracranial abnormality. Electronically signed by: Papi Fernandes MD 05/19/2025 04:40 PM [facility]
[2025-05-19 14:41] VITALS: BP 151/85; PULSE 74; RESP 16; TEMP 36.2; O2SAT 98; BMI 43.3
--- NOTE | 2025-05-19 14:47 | ECG_ITS ---
Test Reason : DIZZINESS Blood Pressure : */* mmHG Vent. Rate : 77 BPM Atrial Rate : 77 BPM P-R Int : 166 ms QRS Dur : 88 ms QT Int : 360 ms P-R-T Axes : 52 7 43 degrees QTcB Int : 407 ms Normal sinus rhythm Normal ECG When compared with ECG of 20-Dec-2023 12:48, No significant change was found Referred By: Joel Quevedo Electronically Signed By: SHELLY LUIS
--- NOTE | 2025-05-19 14:47 | ED.GENADULT ---
HPI - General Adult General Chief complaint: Headache Stated complaint: blurry vision, high bp Time Seen by Provider: 05/19/25 19:07 History of Present Illness ED Provider: Mike BRICE narrative: The patient is a 59-year-old woman who says that approximately 4 days ago she started to feel that her vision was somewhat blurry and she has a bit of a headache. Yesterday her symptoms were more intense. Today she went to her primary care doctor's office because of these symptoms. She wanted to be seen at the urgent care portion of the [facility]. She says that when she got there they checked her blood pressure and that her blood pressure was high. They advised her to come to the emergency department for further evaluation. While waiting to be seen the patient says that her headache and her blurry vision have both resolved. She has had no nausea or vomiting. No fever, sweats, chills. She says that the blurry vision was bilateral. No chest pain. No shortness of breath. No numbness or tingling in her extremities. No difficulty walking. Related Data Home Medications ?Medication ?Instructions ?Recorded ?Confirmed baclofen 10 mg tablet 10 mg PO TID PRN Spasms 04/29/20 02/11/25 cholecalciferol (vitamin D3) 50 50 mcg PO DAILY 04/29/20 02/11/25 mcg (2,000 unit) tablet (Vitamin D3) omeprazole 20 mg tablet,delayed 20 mg PO DAILY@0630 04/29/20 02/11/25 release fluticasone propionate 50 2 spray intranasal DAILY PRN 10/22/21 02/11/25 mcg/actuation nasal Allergy Symptoms spray,suspension atorvastatin 80 mg tablet 80 mg PO BEDTIME 10/27/21 02/11/25 insulin glargine 100 unit/mL (3 8 unit subcut DAILY 11/06/21 02/11/25 mL) subcutaneous pen (Lantus Solostar U-100 Insulin) acetaminophen 650 mg 650 mg PO Q8H PRN fever 01/04/22 02/11/25 tablet,extended release docusate sodium 100 mg capsule 100 mg PO BID PRN Constipation 01/04/22 02/11/25 fluoxetine 20 mg capsule 40 mg PO DAILY 01/04/22 02/11/25 loratadine 10 mg tablet 10 mg PO DAILY PRN Allergy Symptoms 01/04/22 02/11/25 metformin 500 mg tablet,extended 1,000 mg PO BID 01/04/22 02/11/25 release 24 hr sennosides 8.6 mg tablet (senna) 17.2 mg PO BEDTIME PRN constipation 03/08/22 02/11/25 lisinopril 40 mg tablet 40 mg PO DAILY 03/13/23 02/11/25 magnesium oxide 400 mg PO BEDTIME 07/11/23 02/11/25 trazodone 50 mg tablet 100 mg PO BEDTIME PRN insomnia 07/11/23 02/11/25 diclofenac sodium 1 % topical gel 1 ea topical QID 12/01/23 02/11/25 dulaglutide 0.75 mg/0.5 mL mg subcut 06/19/24 02/11/25 subcutaneous pen injector (Trulicity) Previous Rx's ?Medication ?Instructions ?Recorded rivaroxaban 20 mg tablet (Xarelto) 20 mg PO DAILY@1700 #30 tabs 10/26/21 diclofenac sodium 75 mg 75 mg PO BID PRN pain #60 tabs 08/05/22 tablet,delayed release diltiazem HCl 60 mg 60 mg PO BID #180 caps 02/27/25 capsule,extended release 12 hr Allergies Allergy/AdvReac Type Severity Reaction Status Date / Time No Known Allergies (No Known Allergy Verified 05/19/25 14:43 Allergies*) Review of Systems Review of Systems: Yes all other systems are reviewed and are negative PMFSH Past Medical History Medical History Hospital discharge follow-up New onset atrial flutter Poor historian Encounter for screening colonoscopy Cervical cancer screening Women's annual routine gynecological examination Morbid obesity Bacterial vaginosis Vaginal itching Bladder pain Language barrier History of cardioversion Atrial flutter, paroxysmal On beta pat at home On anticoagulant therapy Atrial fibrillation and flutter Atrial fibrillation Diabetes Essential hypertension Abdominal pain Lab test negative for COVID-19 virus Arthritis Anemia GERD (gastroesophageal reflux disease) Hepatitis Depression Hypercholesteremia Diabetes HTN (hypertension) Surgical History History of robot-assisted laparoscopic hysterectomy Hx of abdominal surgery Hx of dilation and curettage Hx of excision of mass Hx of section Hx of tubal ligation Hx of reduction mammoplasty Hx of cholecystectomy Hx of gastric bypass Bariatric surgery status Social History Social History Household Members: Children Housing: Apartment Are you a primary care program director to a significant other at home: No Do you presently have visiting nurse or other home services: No Alcohol intake: never Comment: history-long ago fall when having issues with knees Patient Tobacco Use Status: Never used Tobacco e-Cigarette/Vaping Use: Never Used Advance Directives: No Advance Directives Information Provided: No Advance Directives Date on File: 11/09/21 service: No Current occupational status: disabled Current occupation: rt handed Physical Exam ED Vital Signs: Vital Signs - 24 hr 05/19/25 14:41 05/19/25 19:40 Temperature 97.2 F 98.3 F Pulse Rate 74 79 Respiratory Rate 16 18 Blood Pressure 151/85 H 148/71 H Pulse Oximetry 98 96 Oxygen Delivery Method Room Air Room Air BMI result Body Mass Index 43.3 Const Other: The patient is awake, alert, pleasant, cooperative. She was cheerful and smiling. She said that she was feeling much better and was not having any ongoing symptoms. She did not appear in distress or ill in any way. Orientation/consciousness: patient oriented x3 HENMT Other: The face is symmetrical. Mucous membranes moist. The posterior pharynx is normal. The tongue is midline. Eyes Other: pupils are round, equal, and reactive to light, extraocular movements are intact, visual wen are intact. Neck Neck: Yes full ROM and Yes no meningeal signs Resp Effort & Inspection: normal respiratory effort Auscultation: clear to auscultation bilaterally Cardio Rate: regular rate Rhythm: regular rhythm Heart sounds: S1 normal heart sound present and S2 normal heart sound present GI Other: Abdomen is soft and nontender Skin Other: The skin is dry and unremarkable Neuro General: patient oriented x3, gait normal, tone normal, moves all extremities, no meningeal signs, no focal motor deficits and CN's II-XI intact bilaterally Extrem Other: no peripheral edema Course Course Course Narrative: RME: 59-year-old female presents to the ED for dizziness, headache and blurry vision since yesterday. Patient is sent by primary care prior evaluation. NIH score is 0. Labs head CT ordered Medical Decision Making Medical Decision Making [place] Narrative: I saw the patient after she has been waiting for several hours to be seen by a provider. She has a negative head CT. She has a unremarkable labs. She has a normal EKG. The patient's symptoms had apparently entirely resolved while waiting to be seen. Overall my impression was that the patient was not significantly ill and was not having an acutely dangerous process. She did not come directly to the emergency room herself. She says that she went 1st to the [facility] to discuss your symptoms. She says that her blood pressure was high at the [facility] but I took it at the bedside and it was 140/66. I do not know if this was some kind of a migraine phenomenon but I do not think that this was a subarachnoid hemorrhage or meningitis or any dangerous ophthalmological process. She looks entirely well. Her symptoms have resolved.I think she may be discharged to follow up with your regular doctor and your regular eye doctor. She should return if worse. Lab Data 05/19/25 14:57 05/19/25 14:57 Labs: Lab Results 05/19/25 Range/Units 14:57 WBC 6.5 (4.8-10.8) X10*3/uL RBC 4.00 L (4.20-5.50) X10*6/uL Hgb 11.7 L (12.0-16.0) g/dl Hct 36.2 L (37.0-47.0) % MCV 90.5 (80.0-98.0) fL MCH 29.3 (27.0-33.0) pg MCHC 32.3 (31.0-35.0) g/dl RDW 14.0 (11.0-16.0) % Plt Count 320 (160-400) X10*3/uL MPV 8.6 L (9.4-12.3) fL Immature Gran % (Auto) 0.2 (0.0-0.4) % Neut % (Auto) 59.3 (45-73) % Lymph % (Auto) 32.4 (20-40) % [place] % (Auto) 7.3 (2-11) % Eos % (Auto) 0.3 (0-4) % Baso % (Auto) 0.5 (0-2) % Lymph # (Auto) 2.1 (1.2-4.9) X10*3/uL [place] # (Auto) 0.5 (0.1-1.2) X10*3/uL Eos # (Auto) 0.0 (0.0-0.4) X10*3/uL Baso # (Auto) 0.0 (0.0-0.2) X10*3/uL Abs Immat Gran (auto) 0.01 (0.00-0.03) X10*3/uL Absolute Neuts (auto) 3.8 (2.0-8.3) x10*3/uL Absolute Nucleated RBC 0.000 (0.0-0.012) X10*3/uL Nucleated RBC % (auto) 0.0 (0.0-0.2) /100WBC PT 12.4 (11.2-13.5) SEC INR 1.0 (0.9-1.1) APTT 34.4 H (26.7-34.1) SEC Sodium 143 (135-145) mmol/L Potassium 3.9 (3.3-5.1) mmol/L Chloride 108 (96-108) mmol/L Carbon Dioxide 27 (22-29) mmol/L Anion Gap 12 (12-20) BUN 14 (9-16) mg/dL Creatinine 0.67 (0.5-1.4) mg/dL Estim Creat Clear Calc 104.2 Estimated GFR > 60 Random Glucose 87 (60-115) mg/dL Calcium 9.5 (8.4-10.2) mg/dL Total Bilirubin 0.5 (0.0-1.0) mg/dL AST 24 (5-31) U/L ALT 21 (0-31) U/L Alkaline Phosphatase 107 (39-117) U/L Troponin I High Sens < 2.7 (<3.5-17.0) ng/L Total Protein 7.6 (6.5-8.0) g/dL Albumin 4.6 (3.5-5.0) g/dL Independent Interpretation I performed an independent interpretation of an: EKG Interpretation: EKG at 14 52 shows normal sinus rhythm at 77 beats per minute. It is a normal EKG. Similar to previous EKGs. Discharge Plan Discharge Clinical Impression: Headache, Blurry vision, bilateral Patient Disposition: Home, Self-Care Additional Instructions: Your testing in the emergency room today seems reassuring. It would be good for you to follow up with your eye doctor although your blurry vision has improved. Therefore please call your regular eye doctor tomorrow morning for a follow up appointment soon. Also follow up with your regular doctor. Return to the emergency room if you feel significantly worse. Prescriptions: No Action diltiazem HCl 60 mg capsule,extended release 12 hr 60 mg PO BID Qty: 180 3RF baclofen 10 mg Tablet 10 mg PO TID PRN (Reason: Spasms) omeprazole 20 mg Tablet,Delayed Release (Dr/Ec) 20 mg PO DAILY@0630 cholecalciferol (vitamin D3) [Vitamin D3] 50 mcg (2,000 unit) Tablet 50 mcg PO DAILY insulin glargine [Lantus Solostar U-100 Insulin] 100 unit/mL (3 mL) insulin pen 8 unit SUBCUT DAILY loratadine 10 mg tablet 10 mg PO DAILY PRN (Reason: Allergy Symptoms) fluticasone propionate 50 mcg/actuation spray,suspension 2 spray intranasal DAILY PRN (Reason: Allergy Symptoms) Xarelto 20 mg Tablet 20 mg PO DAILY@1700 Qty: 30 0RF atorvastatin 80 mg tablet 80 mg PO BEDTIME acetaminophen 650 mg tablet extended release 650 mg PO Q8H PRN (Reason: fever) docusate sodium 100 mg capsule 100 mg PO BID PRN (Reason: Constipation) fluoxetine 20 mg capsule 40 mg PO DAILY metformin 500 mg tablet extended release 24 hr 1,000 mg PO BID sennosides [senna] 8.6 mg tablet 17.2 mg PO BEDTIME PRN (Reason: constipation) trazodone 50 mg tablet 100 mg PO BEDTIME PRN (Reason: insomnia) magnesium oxide 400 mg magnesium tablet 400 mg PO BEDTIME diclofenac sodium 75 mg tablet,delayed release (DR/EC) 75 mg PO BID PRN (Reason: pain) Qty: 60 0RF lisinopril 40 mg tablet 40 mg PO DAILY diclofenac sodium 1 % gel 1 ea topical QID Trulicity 0.75 mg/0.5 mL pen injector subcut Referrals: Manohar Gonzalez [Physician, Ophthalmology] Cynthia Carson DO [Primary Care Provider, Internal Medicine] Interventions: ED Discharge Assessment Last Done: 05/19/25 19:40 Discharge Date/Time: 05/19/25 19:41 Print Language: Cymraes
[2025-05-19 15:01] LABS: MANUAL DIFF FLAG NO
[2025-05-19 15:05] LABS: Hematocrit 36.2 % (37.0-47.0); Hemoglobin 11.7 g/dl (12.0-16.0); Imm Gran Abs Auto 0.01 X10*3/uL (0.00-0.03); Imm Gran Pct Auto 0.2 % (0.0-0.4); Lymphocytes Absolute Auto 2.1 X10*3/uL (1.2-4.9); Mean Corpuscular HGB Conc 32.3 g/dl (31.0-35.0); Mean Corpuscular Hemoglobin 29.3 pg (27.0-33.0); Mean Corpuscular Volume 90.5 fL (80.0-98.0); NRBC Abs Auto 0.000 X10*3/uL (0.0-0.012); NRBC Pct Auto 0.0 /100WBC (0.0-0.2); Platelet Count 320 X10*3/uL (160-400); Red Blood Count 4.00 X10*6/uL (4.20-5.50); White Blood Count 6.5 X10*3/uL (4.8-10.8)
[2025-05-19 15:11] LABS: INTERNATIONAL NORM RATIO 1.0 (0.9-1.1); Prothrombin Time 12.4 SEC (11.2-13.5)
[2025-05-19 15:13] LABS: Partial Thromboplastin Time 34.4 SEC (26.7-34.1)
[2025-05-19 15:18] LABS: Alanine Aminotransferase 21 U/L (0-31); Albumin Level 4.6 g/dL (3.5-5.0); Alkaline Phosphatase 107 U/L (39-117); Anion Gap 12 (12-20); Aspartate Amino Transferase 24 U/L (5-31); Blood Urea Nitrogen 14 mg/dL (9-16); Calcium 9.5 mg/dL (8.4-10.2); Carbon Dioxide 27 mmol/L (22-29); Chloride 108 mmol/L (96-108); Creatinine Clr Calc Pharmacy 104.2; Estimated Glomerular Filt Rate > 60; Potassium 3.9 mmol/L (3.3-5.1); Sodium 143 mmol/L (135-145); Total Protein 7.6 g/dL (6.5-8.0)
[2025-05-19 15:34] LABS: Troponin-I High Sensitivity < 2.7 ng/L (<3.5-17.0)
--- NOTE | 2025-05-19 19:17 | PC.NURSE ---
this RN assumed care of this pt @1900, pt noted to walk independtly to the bathroom, pt is primarily Telugu speaking, provider Kirk Mckeon at the bedside w. staff medical information officer at this time
[2025-05-19 19:40] VITALS: BP 148/71; PULSE 79; RESP 18; TEMP 36.8; O2SAT 96
== END 2025-05-19 19:41 | disposition home or self-care (01) ==
PROVIDERS: Physician Assistant; Emergency Provider Emergency Medicine; PCP Family Medicine
DX: R51.9 Headache, unspecified (principal); H53.8 Other visual disturbances; R42 Dizziness and giddiness; E11.9 Type 2 diabetes mellitus without complications; I10 Essential (primary) hypertension; K21.9 Gastro-esophageal reflux disease without esophagitis; I48.91 Unspecified atrial fibrillation; Z79.899 Other long term (current) drug therapy; Z79.4 Long term (current) use of insulin; Z79.84 Long term (current) use of oral hypoglycemic drugs
CPT/HCPCS: 36415; 70450; 80053; 84484; 85025; 85610; 85730; 93005; 99283; 99284

== ENCOUNTER → 2025-05-19 14:47 | Outpatient (BNV) | payer OTHER, SELFPAY | PROVIDERS: PCP Family Medicine; Visit Provider Radiology Diagnostic Radiology | DX: R42 Dizziness and giddiness (principal) | CPT/HCPCS: 70450 ==

== ENCOUNTER → 2025-05-19 14:47 | Outpatient (BNV) | payer OTHER, SELFPAY | PROVIDERS: Emergency Provider Emergency Medicine; PCP Family Medicine; Visit Provider Internal Medicine | DX: R42 Dizziness and giddiness (principal) | CPT/HCPCS: 93010 ==

== ENCOUNTER 2025-05-23 08:35 | Outpatient (AMB) | payer OTHER, SELFPAY ==
--- OUTSIDE RECORDS SUMMARY | 2025-05-19 13:40 | XMS_ITS | Encounter Summary ---
Author Organization [employer] Address [address] [facility] [address] 7[address] [place] [address] Care Team Providers Care Ctrs Name Role Phone Zahida Carsonfer Primary Care Provider + [phone] Encounter Details Date Type Department Care Team ([facility] st Contact Info) Description 05/19/2025 1:40 PM EST Office Visit [facility] [address] [place] [address] Mary Aguiar MD [address] [place] [address] Hypertensive emergency (Primary Dx); Blurry vision Social History Tobacco Use Types Packs/Day Years [...] Sign Reading Time Taken Comments Blood Pressure 140/98 05/19/2025 2:05 PM EST Pulse 74 05/19/2025 1:49 PM EST Temperature 37 C (98.6 F) 05/19/2025 1:49 PM EST Respiratory Rate 16 05/19/2025 1:49 PM EST Oxygen Saturation 97% 05/19/2025 1:49 PM EST Inhaled Oxygen Concentration - - Weight 108 kg (237 lb 12.8 oz) 05/19/2025 1:49 P M EST Height 157.5 cm (5' 2 ) 05/19/2025 1:49 PM EST Body Mass Index 43.49 05/19/2025 1:49 PM EST documented in this encounter Progress Notes * Mary Aguiar MD - 05/19/2025 1:40 PM EST SUBJECTIVE: Ashley Pavon is a 59 y.o. year old female who presents for Walk In Center/dizziness. Denies recent illness, injury, or hospitalization. Acute Concerns: Vision changes She reports blurred vision for approximately 4 days with intermittent fluctuation; symptoms felt ???heavier?? and more bothersome yesterday with eye discomfort and pain that persists until today. She also reports dizziness and weakness. Denies hypoglycemia;states blood pressure at home has been ???too high.?? Last eye exam approx 6-8mo ago. Denies CP, [place]. Social History Social History Narrative Not on file Problem List[1] Family History[2] Review of Systems Constitutional: Negative for chills, fatigue and fever. HENT: Negative for congestion, ear pain, nosebleeds, rhinorrhea, sinus pressure, sore throat and trouble swallowing. Eyes: Positive for visual disturbance. Negative for pain and discharge. Respiratory: Negative for cough, chest tightness and shortness of breath. Cardiovascular: Negative for chest pain, palpitations and leg swelling. Gastrointestinal: Negative for abdominal pain, blood in stool, constipation, diarrhea and nausea. Endocrine: Negative for polydipsia and polyuria. Genitourinary: Negative for dysuria, frequency, genital sores, pelvic pain and vaginal discharge. Musculoskeletal: Negative for back pain and neck pain. Skin: Negative for rash. Allergic/Immunologic: Negative for environmental allergies. Neurological: Positive for dizziness and headaches. Negative for seizures, weakness and light-headedness. Hematological: Negative for adenopathy. Psychiatric/Behavioral: Negative for agitation, behavioral problems, self-injury and suicidal ideas. OBJECTIVE: Vitals: 05/19/25 1208 05/19/25 1349 05/19/25 1405 BP: (!) 162/88 (!) 160/84 (!) 140/98 BP Location: Left arm Left arm Right arm Patient Position: Sitting Sitting Sitting BP Cuff Size: Large adult Large adult Adult long Pulse: 83 74 Resp: 16 16 Temp: 98 ??F (36.7 ??C) 98.6 ??F (37 ??C) TempSrc: Oral Temporal SpO2: 99% 97% Weight: 237 lb 12.8 oz (108 kg) Height: 5' 2 (1.575 m) Physical Exam HENT: Right Ear: Tympanic membrane and ear canal normal. Left Ear: Tympanic membrane and ear canal normal. Mouth/Throat: Mouth: Mucous membranes are moist. Pharynx: No oropharyngeal exudate or posterior oropharyngeal erythema. Eyes: Pupils: Pupils are equal, round, and reactive to light. Cardiovascular: Rate and Rhythm: Regular rhythm. Pulses: Normal pulses. Heart sounds: Normal heart sounds. No murmur heard. Pulmonary: Breath sounds: Normal breath sounds. Abdominal: General: Bowel sounds are normal. Palpations: Abdomen is soft. Tenderness: There is no abdominal tenderness. Musculoskeletal: General: Normal range of motion. Cervical back: Neck supple. Skin: General: Skin is warm. Neurological: General: No focal deficit present. Mental Status: She is alert and oriented to person, place, and time. Cranial Nerves: Cranial nerves 2-12 are intact. Motor: Motor function is intact. Gait: Gait is intact. Psychiatric: Mood and Affect: Mood normal. Behavior: Behavior normal. Problem List Items Addressed This Visit Hypertensive emergency - Primary - Blurry vision possibly related to elevated blood pressure. Need to rule out cerebrovascular event. - Referred to emergency department for further evaluation. Her daughter will take her in a private car, she understands of the implications of a delayed treatment. - No change on meds for now, FU w PCP with BP readings. Other Visit Diagnoses Blurry vision Relevant Orders POCT Glucose (Completed) This note was drafted using Ambient (AI) technology. The patient/patient's guardian has been informed and has consented to the use of this technology: Yes No follow-ups on file. Medications Ordered Prior to Encounter[3] [1] Patient Active Problem List Diagnosis Anemia Atrial flutter (CMS/HCC) (HCC) Essential hypertension Fibroadenoma of breast Hyperlipidemia Microalbuminuria Nonproliferative diabetic retinopathy (HCC) Osteoarthritis of right knee Retroperitoneal mass Type 2 diabetes mellitus (HCC) Cardiomyopathy (HCC) BMI 40.0-44.9, adult (CMS/HCC) (HCC) Depression Tubular adenoma Diverticulosis Chronic gastroesophageal reflux disease History of cardioversion Status post abdominal hysterectomy Cervical radiculopathy Hemorrhoids On anticoagulant therapy Thyroid nodule Anxiety Partial edentulism Periodontosis Dental calculus Vitamin D deficiency Mild obstructive sleep apnea History of Helicobacter pylori infection Degenerative disc disease, thoracic Chronic right shoulder pain Tipped teeth Hypertensive emergency [2] No family history on file. [3] Current Outpatient Medications on File Prior to Visit Medication Sig Dispense Refill acetaminophen (Tylenol 8 Hour) 650 MG ER tablet TAKE 1 TABLET BY MOUTH EVERY 8 HOURS NEEDED FOR FOR MILD PAIN OR FOR MODERATE PAIN AND FOR HEADACHE 40 tablet 1 Alcohol Swabs (Alcohol Prep) 70 % pads USE THREE TIMES DAILY BEFORE MEALS OR DIRECTED 100 each 11 amLODIPine (Norvasc) 5 MG tablet TAKE 1 TABLET BY MOUTH EVERY MORNING 30 tablet 11 atorvastatin (Lipitor) 80 MG tablet TAKE 1 TABLET BY MOUTH AT BEDTIME 90 tablet 3 baclofen (Lioresal) 10 MG tablet TAKE 1 TABLET BY MOUTH THREE TIMES DAILY IN THE MORNING, AT NOON, AND AT BEDTIME NEEDED FOR MUSCLE SPASMS 60 tablet 3 Blood Glucose Monitoring Suppl (ONE TOUCH ULTRA 2) w/Device kit TEST BLOOD SUGAR THREE TIMES DAILY 1 kit 0 Continuous Blood Gluc Lockstitch Pocket Setter (FreeStyle Jordyn 2 [place]) device 1 each in the morning. Use as directed 1 each 0 Continuous Glucose Sensor (FreeStyle Jordyn 2 Sensor) [facility] USE TO CHECK BLOOD SUGAR EVERY DAY DIRECTED 2 each 11 Diclofenac Sodium 1 % gel Apply 2 g topically if needed in the morning, at noon, in the evening, and at bedtime (pain). 150 g 5 dilTIAZem SR (Cardizem SR) 60 MG 12 hr capsule docusate sodium (Colace) 100 MG capsule TAKE 1 CAPSULE BY MOUTH TWICE DAILY 180 capsule 3 Dulaglutide (Trulicity) 1.5 MG/0.5ML solution auto-injector Inject 1.5 mg under the skin 1 (one) time per week. 2 mL 3 FLUoxetine (PROzac) 20 MG capsule TAKE 2 CAPSULES BY MOUTH ONCE DAILY IN THE MORNING 60 capsule 0 fluticasone (Flonase) 50 MCG/ACT nasal spray INSTILL 1-2 SPRAYS IN EACH NOSTRIL ONCE DAILY 48 g 1 insulin glargine (Lantus SoloStar) 100 UNIT/ML pen Inject 6 Units under the skin in the morning. 15mL 5 Lancets ([employer] Delica Plus [id number]) [facility] USE DIRECTED TO TEST BLOOD SUGAR THREE TIMES [id number] each 11 lisinopril 40 MG tablet TAKE 1 TABLET BY MOUTH EVERY MORNING 90 tablet 1 loratadine (Claritin) 10 MG tablet TAKE 1 TABLET BY MOUTH EVERY DAY 90 tablet 1 magnesium oxide (Mag-Ox) 400 MG tablet TAKE 1 TABLET BY MOUTH AT BEDTIME 90 tablet 3 metFORMIN XR (Glucophage-XR) 500 MG 24 hr tablet TAKE 2 TABLETS BY MOUTH TWICE DAILY IN THE MORNINGAND EVENING WITH FOOD 360 tablet 3 Multiple Vitamin (Multivitamin) tablet TAKE 1 TABLET BY MOUTH EVERY MORNING 90 tablet 3 omeprazole (PriLOSEC) [address] capsule TAKE 1 CAPSULE BY MOUTH EVERY MORNING BEFORE BREAKFAST 90 capsule 3 OneTouch Ultra Test test strip USE DIRECTED TO TEST BLOOD SUGAR THREE TIMES DAILY 100 strip 11 Pentips Generic Pen [place] 32G X 4 MM misc USE WITH INSULIN DIRECTED 100 each 3 rivaroxaban (Xarelto) 20 MG tablet TAKE 1 TABLET BY MOUTH EVERY EVENING WITH FOOD 90 tablet 1 senna (Senokot) 8.6 MG tablet TAKE 2 TABLETS BY MOUTH EVERY DAY AT BEDTIME FOR CONSTIPATION 180 tablet 1 traZODone (Desyrel) 50 MG tablet TAKE 1 TO 2 TABLETS BY MOUTH AT BEDTIME NEEDED TRUEplus Glucose 4 g chewable tablet CHEW 2 TO 4 TABLETS NEEDED FOR HYPOGLYCEMIA 40 tablet 5 [DISCONTINUED] Blood Pressure kit 1 each Once daily. 1 kit 0 No current facility-administered medications on file prior to visit. documented in this encounter Miscellaneous Notes * Assessment & Plan Note - Mary Aguiar MD - 05/19/2025 2:05 PM EST Associated Problem(s): Hypertensive emergency - Blurry vision possibly related to elevated blood pressure. Need to rule out cerebrovascular event. - Referred to emergency department for further evaluation. Her daughter will take her in a private car, she understands of the implications of a delayed treatment. - No change on meds for now, FU w PCP with BP readings. documented in this encounter Plan of Treatment Upcoming Encounters Date Type Department Care Team (Late st Contact Info) Description 09/19/2025 9:30 AM EDT Office Visit [facility] ADULT DENTAL [address] [place] [address] Maren, Pao [address] [place] [address] documented as of this encounter Goals Goal Patient Goal Type Associated Problems Recent Progress Patient-Stated? Author Help patients manage their type 2 diabetes Care Plan Help patients manage their type 2 diabetes No Onelia Malagon RN Weekly blood pressure task Care Plan Weekly blood pressure task No Onelia Malagon RN Help patients manage their type 2 diabetes Care Plan Help patients manage their type 2 diabetes No Onelia Malagon RN Patient has diabetic eye disease Care Plan Patient has diabetic eye disease No Onelia Malagon RN Help patients manage their type 2 diabetes Care Plan Help patients manage their type 2 diabetes No Onelia Malagon RN Patient has chronic kidney disease Care Plan Patient has chronic kidney disease No Onelia Malagon RN Weekly blood pressure task Care Plan Weekly blood pressure task Onelia Malik RN Weekly blood pressure task Care Plan Weekly blood pressure task No Onelia Malagon RN Patient has diabetic eye disease Care Plan Patient has diabetic eye disease No Onelia Malagon RN Patient has diabetic eye disease Care Plan Patient has diabetic eye disease No Onelia Malagon RN Patient has chronic kidney disease Care Plan Patient has chronic kidney disease No Onelia Malagon RN Patient has chronic kidney disease Care Plan Patient has chronic kidney disease No Onelia Malagon RN Weekly blood pressure task Care Plan Weekly blood pressure task Onelia Malik RN Weekly blood pressure task Care Plan Weekly blood pressure task Onelia Malik RN Weekly blood pressure task Care Plan Weekly blood pressure task No Onelia Malagon RN Patient has diabetic eye disease Care Plan Patient has diabetic eye disease No Onelia Malagon RN Patient has diabetic eye disease Care Plan Patient has diabetic eye disease No Onelia Malagon RN Patient has diabetic eye disease Care Plan Patient has diabetic eye disease No Onelia Malagon RN Patient has chronic kidney disease Care Plan Patient has chronic kidney disease No Onelia Malagon RN Patient has chronic kidney disease Care Plan Patient has chronic kidney disease No Onelia Malagon RN Patient has chronic kidney disease Care Plan Patient has chronic kidney disease No Onelia Malagon RN documented as of this encounter Procedures Procedure Name Priority Date/Time Associated Diagnosis Comments POCT GLUCOSE Routine 05/19/2025 1:48 PM EST Blurry vision documented in this encounter Results * POCT Glucose (05/19/2025 1:48 PM EST) Glucose Blood, POC 119 60 - 200 mg/dL QC Media Lot # [id number] Lot# Expiration Date 3,026 Blood Capillary blood specimen / Unknown 05/19/2025 1:48 PM EST Mary Aguiar MD POINT OF CARE TEST ENTER /EDIT ORDERABLES Final Result documented in this encounter Visit Diagnoses Diagnosis Hypertensive emergency- Primary Blurry vision Other specified visual disturbances documented in this encounter Additional Health Concerns Active Problems Noted Date Diagnosed Date Help patients manage their type 2 diabetes 05/19 Weekly blood pressure task 05/19/2025 Help patients manage their type 2 diabetes 05/19 Patient has diabetic eye disease 05/19/2025 Help patients manage their type 2 diabetes 05/19 Patient has chronic kidney disease 05/19/2025 Weekly blood pressure task 05/19/2025 Weekly blood pressure task 05/19/2025 Patient has diabetic eye disease 05/19/2025 Patient has diabetic eye disease 05/19/2025 Patient has chronic kidney disease 05/19/2025 Patient has chronic kidney disease 05/19/2025 Weekly blood pressure task 05/19/2025 Weekly blood pressure task 05/19/2025 Weekly blood pressure task 05/19/2025 Patient has diabetic eye disease 05/19/2025 Patient has diabetic eye disease 05/19/2025 Patient has diabetic eye disease 05/19/2025 Patient has chronic kidney disease 05/19/2025 Patient has chronic kidney disease 05/19/2025 Patient has chronic kidney disease 05/19/2025 Assessment Noted Time PHQ-9 Depression Total Score: 9 04/02/20 25 2:06 PM EDT documented as of this encounter Care Teams Ctrs Relationship Specialty Start Date End Date Cynthia Carson DO [address] [place] [id number] PCP - General Family Medicine 03/13/15 documented as of this encounter
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
--- OUTSIDE RECORDS SUMMARY | 2025-05-23 08:38 | XMS_ITS | Encounter Summary ---
Author Organization [employer] Address [address] [place] [address] Care Team Providers Care Market Analyst Name Role Phone Cynthia Carson DO Primary Care Provider + [phone] Reason for Visit * Reason Comments Med Refill Encounter Details Date Type Department Care Team ([facility] st Contact Info) Description 07/31/2023 Refill [facility] [address], [place] [phone] Cynthia Carson DO [address], [place] [phone] Hypomagnesemia Social History Tobacco Use Types Packs/Day [...] Description 09/19/2025 9:30 AM EDT Office Visit [facility] [address] [place] [address] Maren, Pao [address] [place] [address] documented as of this encounter Visit Diagnoses Diagnosis Hypomagnesemia Disorders of magnesium metabolism documented in this encounter Additional Health Concerns Assessment Noted Time PHQ-9 Depression Total Score: 0 09/15/19 11:12 AM EDT documented as of this encounter Care Teams Market Analyst Relationship Specialty Start Date End Date Cynthia Carson DO [address] [place] [address] PCP - General Family Medicine 03/13/15 documented as of this encounter
--- OUTSIDE RECORDS SUMMARY | 2025-05-23 08:38 | XMS_ITS | Encounter Summary ---
Author Organization [employer] Address [address] [facility] 7t [place] [address] Care Team Providers Care Source Water Protection Specialist Name Role Phone Yamileth Cynthia Primary Care Provider + [phone] Reason for Visit * Reason Onset Date Comments appt 01/02/2024 Encounter Details Date Type Department Care Team ([facility] st Contact Info) Description 01/02/2024 Telephone [facility] [address] [place] [address] Katheryn Ace, DDS [address] [place] [address] appt Social History Tobacco Use Types Packs/Day [...] encounter Miscellaneous Notes * Telephone Encounter - Lizize Berry - 01/02/2024 8:36 AM EDT Patient [...] Description 09/19/2025 9:30 AM EDT Office Visit [facility] [address] [place] [address] Osmin Engelaris [address] [place] [address] documented as of this encounter Visit Diagnoses Not on filedocumented in this encounter Additional Health Concerns Assessment Noted Time PHQ-9 Depression Total Score: 7 11/29/19 24 8:13 AM EDT documented as of this encounter Care Teams Source Water Protection Specialist Relationship Specialty Start Date End Date Cynthia Carson DO [address] [place] [address] PCP - General Family Medicine 03/13/15 documented as of this encounter
--- OUTSIDE RECORDS SUMMARY | 2025-05-23 08:38 | XMS_ITS | Encounter Summary ---
Author Organization [employer] Address [address] [facility] 7t [place] [address] Care Team Providers Care Security System Sales Consultant Name Role Phone DebbiCynthia baird Primary Care Provider + [phone] Reason for Visit * Reason Comments Med Refill Encounter Details Date Type Department Care Team (Late st Contact Info) Description 09/23/2022 Refill [facility] MED[facility] [address] [place] [address] Mary Aguiar MD [address] [place] [address] Social History Tobacco Use Types Packs/Day Years [...] Description 09/19/2025 9:30 AM EDT Office Visit [facility] ADULT DENTAL [address] [place] [address] Pao Engel [address] [place] [address] documented as of this encounter Visit Diagnoses Not on filedocumented in this encounter Additional Health Concerns Assessment Noted Time PHQ-9 Depression Total Score: 0 09/15/19 23 11:12 AM EDT documented as of this encounter Care Teams Security System Sales Consultant Relationship Specialty Start Date End Date Cynthia Carson DO [address] [place] [address] PCP - General Family Medicine 03/13/15 documented as of this encounter
--- OUTSIDE RECORDS SUMMARY | 2025-05-23 08:38 | XMS_ITS | Encounter Summary ---
Author Organization [employer] Address [address] [facility] [address] [place] [address] Care Team Providers Care Sheet Metal Duct Installer Helper Name Role Phone Cynthia Carson DO Primary Care Provider + [phone] Reason for Visit * Reason Onset Date Comments Nurse Triage 05/19/2025 Encounter Details Date Type Department Care Team ([facility] st Contact Info) Description 05/19/2025 Telephone [facility] [address] [place] [address] Cynthia Carson DO [address] [place], [place] [phone] Nurse Triage Social History Tobacco Use Types Packs/Day Years [...] the past 12 months, has t he [employer], gas, oil or water company threatened to [...] encounter Miscellaneous Notes * Telephone Encounter - Onelia Malagon RN - 05/19/2025 12:10 PM EST Assessment: Patient presents to [facility] c/o Dizziness and blurry vision x 3 days.. Symptoms have been present for days. Symptoms are intermittent. VS as follows (if applicable): Temp 98.0 orally HR 83 regular rate and rhythm Resp 16 none BP 162/88 left Arm; Device: Manual Cuff Size: large O2 sat 99 % on room air Pain level: 0, Allergies[1] Current Medications[2] Patient Active Problem List Diagnosis Date Noted Tipped teeth 03/19/2025 Chronic right shoulder pain 11/26/2024 Mild obstructive sleep apnea 11/15/2024 Degenerative disc disease, thoracic 11/15/2024 Periodontosis 03/13/2024 Dental calculus 03/13/2024 Partial edentulism 02/06/2024 Anxiety 11/29/2023 Cervical radiculopathy 07/30/2023 Hemorrhoids 07/30/2023 On anticoagulant therapy 07/30/2023 Thyroid nodule 07/30/2023 Status post abdominal hysterectomy 04/28/2023 Cardiomyopathy (HCC) 09/14/2022 BMI 40.0-44.9, adult ([facility]) (HCC) 09/14/2022 Depression 09/14/2022 Tubular adenoma 09/14/2022 Diverticulosis 09/14/2022 Chronic gastroesophageal reflux disease 09/14/2022 History of cardioversion 09/14/2022 Atrial flutter ([facility]) ([facility]) 05/20/2022 Vitamin D deficiency 04/09/2019 History of Helicobacter pylori infection 04/09/2019 Osteoarthritis of right knee 07/06/2018 Anemia 02/13/2018 Essential hypertension 08/04/2015 Fibroadenoma of breast 08/04/2015 Hyperlipidemia 08/04/2015 Microalbuminuria 08/04/2015 Nonproliferative diabetic retinopathy ([facility]) 08/04/2015 Retroperitoneal mass 08/04/2015 Type 2 diabetes mellitus ([facility]) 08/04/2015 Plan of care: Report to Dr. Ivey Provider evaluation: Yes Patient to return to waiting room to await Provider evaluation in the order of arrival Advised to return at 2 pm for Provider evaluation RN advised patient if symptoms worsen to contact [facility] while waiting. Patient verbalized understanding. Onelia Malagon RN [1] No Known Allergies [2] Current Outpatient Medications Medication Sig Dispense Refill acetaminophen (Tylenol 8 [...] SUGAR THREE TIMES DAILY 1 kit 0 Blood Pressure kit 1 each Once daily. 1 kit 0 Continuous Blood Gluc Mat Making Machine Tender (FreeStyle Jordyn 2 [place]) device 1 each in the morning. Use as directed 1 each 0 Continuous Glucose Sensor (FreeStyle Jordyn 2 Sensor) [facility] USE TO CHECK BLOOD SUGAR EVERY DAY [...] skin in the morning. 15mL 5 Lancets (Litebiuch Delica Plus [id number]) [facility] USE DIRECTED TO TEST BLOOD SUGAR THREE TIMES [id number] each 11 lisinopril 40 MG tablet TAKE [...] EVERY MORNING BEFORE BREAKFAST 90 capsule 3 YouDo Ultra Test test strip USE DIRECTED TO TEST BLOOD SUGAR THREE TIMES DAILY 100 strip 11 Pentips Generic [place] 32G X 4 MM mis USE WITH INSULIN DIRECTED 100 each 3 [...] TABLETS NEEDED FOR HYPOGLYCEMIA 40 tablet 5 No current facility-administered medications for this visit. documented in this encounter Plan of Treatment Upcoming Encounters Date Type Department Care Team (Late st Contact Info) Description 09/19/2025 9:30 AM EDT Office Visit [facility] ADULT DENTAL [address] [place] [address] Maren, Pao [address] [place] [address] documented as of this encounter Goals Goal Patient Goal Type Associated Problems Recent Progress Patient-Stated? Author Help patients manage their type 2 diabetes Care Plan Help patients manage their type 2 diabetes Onelia Malik RN Weekly blood pressure task [...] Care Plan Patient has diabetic eye disease Onelia Malik RN Patient has diabetic eye disease Care Plan Patient has diabetic eye disease No Onelia Malagon RN Patient has chronic kidney disease Care Plan Patient has chronic kidney disease No Onelia Malagon RN Patient has chronic kidney disease Care Plan Patient has chronic kidney disease Onelia Malik RN Weekly blood pressure task [...] Malagon RN documented as of this encounter Visit Diagnoses Not on filedocumented in this encounter Additional Health Concerns Active [...] documented as of this encounter Care Teams Sheet Metal Duct Installer Helper Relationship Specialty Start Date End Date Cynthia Carson DO [address] [place] [id number] PCP - General Family Medicine 03/13/15 documented as of this encounter
--- OUTSIDE RECORDS SUMMARY | 2025-05-23 08:38 | XMS_ITS | Encounter Summary ---
Author Organization [employer] [facility] Address [address] [place] [address] 7t [place] [address] Care Team Providers Care Grip Wrapper Name Role Phone JenelleCynthia beckwith Primary Care Provider + [phone] Reason for Visit * Reason Comments Med Refill Encounter Details Date Type Department Care Team (Late st Contact Info) Description 03/08/2023 Refill [facility] MED[facility] [address] [place], [place] [phone] Mary Aguiar MD [address] [place] [address] Social History Tobacco Use Types Packs/Day Years [...] Description 09/19/2025 9:30 AM EDT Office Visit [facility] ADULT DENTAL [address] [place], [place] [phone] Pao Engel [address] [place] [address] documented as of this encounter Visit Diagnoses Not on filedocumented in this encounter Additional Health Concerns Assessment Noted Time PHQ-9 Depression Total Score: 0 09/15/19 23 11:12 AM EDT documented as of this encounter Care Teams Grip Wrapper Relationship Specialty Start Date End Date Cynthia Carson DO [address] [place] [address] PCP - General Family Medicine 03/13/15 documented as of this encounter
--- OUTSIDE RECORDS SUMMARY | 2025-05-23 08:38 | XMS_ITS | Encounter Summary ---
Author Organization [employer] Address [address] [facility] [address] [place] [address] Care Team Providers Care Subassemblies Wirer Name Role Phone JenelleCynthia beckwith Primary Care Provider + [phone] Encounter Details Date Type Department Care Team (Late Contact Info) Description 09/09/2022 Orders Only [facility] [address] [place], [place] [phone] Danielito Gonzalez FNP Essential hypertension (Primary Dx); Type 2 diabetes mellitus with diabetic nephropathy, without long-term current use of insulin ([facility]); Hyperlipidemia, unspecified hyperlipidemia type; Diabetes mellitus due to underlying condition with other diabetic kidney complication ([facility]) Social History Tobacco Use Types Packs/Day Years [...] Upcoming Encounters Date Type Department Care Team ([facility] Contact Info) Description 09/19/2025 9:30 AM EDT Office Visit [facility] [address] [place] [address] Pao Engel [address] [place] [address] Scheduled Orders Name Type Priority Associated Diagnoses Orde r Schedule CBC auto differential Lab Routine Essential hypertension Type 2 diabetes mellitus with diabetic nephropathy, without long-term current use of insulin ([facility]/HCC) Hyperlipidemia, unspecified hyperlipidemia type Expected: 09/09/2022 (Approximate), Expires: 09/10/2023 Comprehensive metabolic panel Lab Routine Essential hypertension Type 2 diabetes mellitus with diabetic nephropathy, without long-term current use of insulin ([facility]/HCC) Hyperlipidemia, unspecified hyperlipidemia type Expected: 09/09/2022 (Approximate), Expires: 09/10/2023 documented as of this encounter Visit Diagnoses Diagnosis Essential hypertension- Primary Unspecified essential hypertension Type 2 diabetes mellitus with diabetic nephropathy, without long-term current use of insulin (HCC) Hyperlipidemia, unspecified hyperlipidemia type Diabetes mellitus due to underlying condition with other diabetic kidney complication (HCC) documented in this encounter Care Teams Subassemblies Wirer Relationship Specialty Start Date End Date Cynthia Carson DO [address] [place] [address] PCP - General Family Medicine 03/13/15 documented as of this encounter
--- OUTSIDE RECORDS SUMMARY | 2025-05-23 08:38 | XMS_ITS | Encounter Summary ---
Author Organization [employer] [facility] Address [address] [place] [address] 7t [place] [address] Care Team Providers Care Time Clock Inspector Name Role Phone Cynthia Carson DO Primary Care Provider + [phone] Encounter Details Date Type Department Care Team (Latest Contact Info) Description 08/29/2018 Abstract [facility] CONVERSIONS Dental, Provider, DDS Social [...] 09/19/2025 9:30 AM EDT Office Visit [facility] ADULT DENTAL [address] [place] [address] Maren, Pao [address] [place] [address] documented as of this encounter Visit Diagnoses Not on filedocumented in this encounter Care Teams Time Clock Inspector Relationship Specialty Start Date End Date Cynthia Carson DO [address] [place] [address] PCP - General Family Medicine 03/13/15 documented as of this encounter
--- OUTSIDE RECORDS SUMMARY | 2025-05-23 08:38 | XMS_ITS | Encounter Summary ---
Author Organization [employer] Address [address] [facility] 7t [place] [address] Care Team Providers Care Mining Consultant Name Role Phone Cynthia Carson DO Primary Care Provider + [phone] Reason for Visit * Reason Comments Med Refill Encounter Details Date Type Department Care Team ([facility] st Contact Info) Description 04/22/2024 Refill [facility] [address] [place], [place] [phone] Cynthia Carson DO [address] [place], [place] [phone] Social History Tobacco Use Types Packs/Day Years [...] Description 09/19/2025 9:30 AM EDT Office Visit [facility] ADULT DENTAL [address] [place] [address] Maren, Pao [address] [place] [address] documented as of this encounter Visit Diagnoses Not on filedocumented in this encounter Additional Health Concerns Assessment Noted Time PHQ-9 Depression Total Score: 7 11/29/19 24 8:13 AM EDT documented as of this encounter Care Teams Mining Consultant Relationship Specialty Start Date End Date Cynthia Carson DO [address] [place] [address] PCP - General Family Medicine 03/13/15 documented as of this encounter
--- OUTSIDE RECORDS SUMMARY | 2025-05-23 08:38 | XMS_ITS | Encounter Summary ---
Author Organization [employer] Address [address] [facility] [facility] [address] [place] [address] Care Team Providers Care Tow Truck Driver Name Role Phone DebbiCynthia baird Primary Care Provider + [phone] Encounter Details Date Type Department Care Team (Latest Contact Info) Description 05/19/2025 Travel Social History Tobacco Use Types Packs/Day [...] Description 09/19/2025 9:30 AM EDT Office [facility] ADULT DENTAL [address] [place], [place] [phone] Maren, Pao [address] [place] [address] documented as of this encounter Goals Goal [...] eye disease Onelia Malik RN Patient has chronic kidney disease Care Plan Patient has chronic kidney disease Onelia Malik RN Patient has chronic kidney disease Care Plan Patient has chronic kidney disease Onelia Malik RN Patient has chronic kidney disease Care Plan Patient has chronic kidney disease Onelia Malik RN documented as of this encounter Visit [...] documented as of this encounter Care Teams Tow Truck Driver Relationship Specialty Start Date End Date Cynthia Carson DO [address] [place] [address] PCP - General Family Medicine 03/13/15 documented as of this encounter
--- OUTSIDE RECORDS SUMMARY | 2025-05-23 08:38 | XMS_ITS | Encounter Summary ---
Author Organization [employer] Address [address] [place] [address] Care Team Providers Care Installer Inspector Final Name Role Phone YamilethCynthia Primary Care Provider + [phone] Encounter Details Date Type Department Care Team (Late st Contact Info) Description 05/19/2025 Orders Only GENERIC EXTERNAL DATA DEPARTMENT Provider, Generic External Data Social History Tobacco Use Types Packs/Day Years [...] 9:30 AM EDT Office Visit [facility] ADULT DENTAL [address] [place] [address] Maren, Pao [address] [place] [address] documented as of this encounter Goals Goal [...] has diabetic eye disease Onelia Malik RN Help patients manage their type 2 diabetes Care Plan Help patients manage their type 2 diabetes No Onelia Malagon RN Patient has chronic kidney disease Care Plan Patient has chronic kidney disease Onelia Malik RN Weekly blood pressure task Care Plan Weekly blood pressure task Onelia Malik RN Weekly blood pressure task Care Plan Weekly blood pressure task Onelia Malik RN Patient has diabetic eye [...] blood pressure task No Onelia Malagon RN Weekly blood pressure task Care Plan Weekly blood pressure task No Onelia Malagon RN Weekly blood pressure [...] Procedure Name Priority Date/Time Associated Diagnosis Comments CT HEAD WO CONTRAST Routine 05/19/2025 4 :08 PM EST HIGH SENSITIVITY TROPONIN I Routine 05/19/2025 2:57 PM EST CBC WITH AUTO DIFFERENTIAL Routine 05/19/2025 2:57 PM EST APTT Routine 05/19/2025 2:57 PM EST PROTHROMBIN TIME-INR Routine 05/19/2025 2:57 PM EST COMPREHENSIVE METABOLIC PANEL Routine 05/19/2025 2:57 PM EST documented in this encounter Results * CT Head w/o Contrast (05/19/2025 4:08 PM EST) Anatomical Region Laterality Modality Head, Neck Computed Tomogra phy 05/19/2025 4:08 PM EST Narrative 05/19/2025 4:42 PM EST [address] [address] [address] Scan Report Signed Patient: Ashley Pavon MR#: [id number] : 1965 Acct:[id number] Age/Sex: 59 / F ADM Date: 05/19/25 Loc: HO.ED Attending Dr: Ordering Physician: Joel Quevedo Date of Service: 05/19/25 Procedure(s): CT head/brain wo IV con Accession Number(s): [id number] cc: Joel Quevedo; Cynthia Carson DO Report Number: [id number]: Total DLP = 710.00 mGy-cm Reason for Exam: dizziness EXAMINATION: CT HEAD WITHOUT CONTRAST CLINICAL INFORMATION: Dizziness COMPARISON: 03/29/2023 TECHNIQUE: Contiguous axial imaging was performed from the skull base to vertex without intravenous administration of contrast. This CT examination was performed using dose optimization techniques as appropriate, variously including the following: *Automated exposure control *Adjustment of mA and/or kV according to patient size (this includes techniques or standardized protocols for targeted exams where dose is matched to indication/reason for exam; i.e. extremities or head) *Use of iterative reconstruction technique FINDINGS: There is no acute ischemic change. There is no intracranial hemorrhage. There is no mass-effect or midline shift. Empty sella is again noted. Basal cisterns and ventricles are within normal limits for age/cerebral volume. Orbits are symmetrical and unremarkable. Paranasal sinuses and mastoid air cells are pneumatized. There is hyperostosis frontalis. CT/CT head/brain wo IV con IMPRESSION: No acute intracranial abnormality. Electronically signed by: Papi Fernandes MD 05/19/2025 04:40 PM EST Dictated By: Papi Fernandes MD Signed By: <Electronically signed by Papi Fernandes MD in OV> 05/19/25 1640 DD/ 1608 TD/TT: 05/19/25 1630 Database Analyst: Procedure Note Donotuseinterpreter, Image - 05/19/[address] [address] [address] Scan Report Signed Patient: Ashley PavonMR#: [id number] : 1965Acct:[id number] Age/Sex: 59 / FADM Date: 05/19/25 Loc: HO.ED Attending Dr: Ordering Physician: Joel Quevedo Date of Service: 05/19/25 Procedure(s): CT head/brain wo IV con Accession Number(s): [id number] cc: Joel Quevedo; Cynthia Carson DO Report Number: [id number]: Total DLP = 710.00 mGy-cm Reason for Exam: dizziness EXAMINATION: CT HEAD WITHOUT CONTRAST CLINICAL INFORMATION: Dizziness COMPARISON: 03/29/2023 TECHNIQUE: Contiguous axial imaging was performed from the skull base to vertex without intravenous administration of contrast. This CT examination was performed using dose optimization techniques as appropriate, variously including the following: *Automated exposure control *Adjustment of mA and/or kV according to patient size (this includes techniques or standardized protocols for targeted exams where dose is matched to indication/reason for exam; i.e. extremities or head) *Use of iterative reconstruction technique FINDINGS: There is no acute ischemic change. There is no intracranial hemorrhage. There is no mass-effect or midline shift. Empty sella is again noted. Basal cisterns and ventricles are within normal limits for age/cerebral volume. Orbits are symmetrical and unremarkable. Paranasal sinuses and mastoid air cells are pneumatized. There is hyperostosis frontalis. CT/CT head/brain wo IV con IMPRESSION: No acute intracranial abnormality. Electronically signed by: Papi Fernandes MD 05/19/2025 04:40 PM [facility] Dictated By: Papi Fernandes MD Signed By: <Electronically signed by Papi Fernandes MD in OV> 05/19/25 1640 DD/ 1608 TD/TT: 05/19/25 1630 Database Analyst: [facility] External Provider IMG CT PROCEDURES Final Result * High Sensitivity Troponin I (05/19/2025 2:57 PM EST) TROPONIN I HIGH SENSITIVITY <2.7 <3.5 - 17.0 ng/L [facility] Comment:The [place] high sens itivity Troponin-I results should beused in conjunction with other diagnostic information suchas ECG, clinical observations and information, and patientsymptoms to aid in the diagnosis of CT. 05/19/2025 2:57 PM EST 05/19/2025 3:00 PM EST us Generic External Data Provider LAB BLOOD ORDERAB LES Final Result [facility] [address] [place] [phone] * Comprehensive Metabolic Panel (05/19/2025 2:57 PM EST) Pathologist [facility] Sodium 143 135 - 145 mmol/L [facility] Potassium 3.9 3.3 - 5.1 mmol/L [facility] Chloride 108 96 - 108 mmol/L [facility] Carbon Dioxide 27 22 - 29 mmol/L [facility] Anion Gap 12 12 - 20 [facility] Urea Nitrogen (BUN) 14 9 - 16 mg/dL [facility] Creatinine, Serum 0.67 0.5 - 1.4 mg/dL [facility] Creatinine Clr Calc Pharmacy 104.2 [facility] Comment:Provided height and weight: 157.48 cm,107.501 kg.eGFR (calculated from the MDRD study equation) and eCrCl(calculated from the Cockcroft-Gault equation) are based ondifferent parameters and may not yield comparable results.If eCrCl result is absurd, please check patient'sheight/weight. Estimated Glomerular Filt Rate >60 [facility] Comment:Chronic Kidney Disea se: Estimated GFR < 60 mL/min/1.73e3Rpocjg Kidney Disease: Estimated GFR < 15 mL/min/1.73m2 Glucose 87 60 - 115 mg/dL [facility] Calcium 9.5 8.4 - 10.2 mg/dL [facility] Bilirubin, Total 0.5 0.0 - 1.0 mg/dL [facility] Aspartate Amino Transferase 24 5 - 31 U/L [facility] Alanine Aminotransferase 21 0 - 31 U/L [facility] Total Protein 7.6 6.5 - 8.0 g/dL [facility] Albumin Level 4.6 3.5 - 5.0 g/dL [facility] Alkaline Phosphatase 107 39 - 117 U/L [facility] 05/19/2025 2:57 PM EST 05/19/2025 3:00 PM EST Generic External Data Provider LAB BLOOD ORDERAB LES Final Result Performing Organization Address City/[facility]/[place] Co de Phone Number [facility] [address] [place] [phone] * (ABNORMAL) Partial Thromboplastin Time, Activated (APTT) (05/19/2025 2:57 PM EST) Partial Thromboplastin Time 34.4(H) 26.7 - 34.1 SEC [facility] 05/19/2025 2:57 PM EST 05/19/2025 3:00 PM EST Generic External Data Provider LAB BLOOD ORDERAB LES Final Result Performing Organization Address City/[facility]/ZIP Co de Phone Number [facility] [address] [place] [phone] * Prothrombin Time-INR (05/19/2025 2:57 PM EST) Prothrombin Time 12.4 11.2 - 13.5 SEC [facility] INTERNATIONAL NORM RATIO 1.0 0.9 - 1.1 [facility] Comment:INTERNATIONAL NORMAL IZED RATIO (INR) REFERENCE RANGES Reference RangeFor patients not on anticoagulant therapy: 0.9 - 1.1INR ranges for oral anticoagulanttherapy:For prevention and treatment of venous thrombosis and pulmonary embolism: 2.0 - 3.0For acute myocardial infarction with aspirin therapy: 2.0 - 3.0For acute myocardial infarction without aspirin therapy: 3.0 - 4.0For patients with mechanical prosthetic heart valves: 2.5 - 3.5 05/19/2025 2:57 PM EST 05/19/2025 3:00 PM EST us Generic External Data Provider LAB BLOOD ORDERAB LES Final Result Performing Organization Address City/State/[place] Co de Phone Number [facility] [address] [place] [phone] * (ABNORMAL) CBC auto differential (05/19/2025 2:57 PM EST) White Blood Count 6.5 4.8 - 10.8 X10*3/uL [facility] Red Blood Count 4.00(L) 4.20 - 5.50 X10*6/uL [facility] Hemoglobin 11.7(L) 12.0 - 16.0 g/dl [facility] Hematocrit 36.2(L) 37.0 - 47.0 % [facility] Mean Corpuscular Volume 90.5 80.0 - 98.0 fL [facility] Mean Corpuscular Hemoglobin 29.3 27.0 - 33.0 pg [facility] Mean Corpuscular HGB Conc 32.3 31.0 - 35.0 g/dl [facility] Red Cell Distribution Width 14.0 11.0 - 16.0 % [facility] Platelet Count 320 160 - 400 X10*3/uL [facility] Mean Platelet Volume 8.6(L) 9.4 - 12.3 fL [facility] Neutrophils Percent Auto 59.3 45 - 73 % [facility] Imm Gran Pct Auto 0.2 0.0 - 0.4 % [facility] Lymphocytes Percent Auto 32.4 20 - 40 % [facility] Monocytes Percent Auto 7.3 2 - 11 % [facility] Eosinophils Percent Auto 0.3 0 - 4 % [facility] Basophils Percent Auto 0.5 0 - 2 % [facility] NRBC Pct Auto 0.0 0.0 - 0.2 /100WBC [facility] Neutrophils Absolute Auto 3.8 2.0 - 8.3 x10*3/uL [facility] Imm Gran Abs Auto 0.01 0.00 - 0.03 X10*3/uL [facility] Lymphocytes Absolute Auto 2.1 1.2 - 4.9 X10*3/uL [facility] Monocytes Absolute Auto 0.5 0.1 - 1.2 X10*3/uL [facility] Eosinophils Absolute Auto 0.0 0.0 - 0.4 X10*3/uL [facility] Basophils Absolute Auto 0.0 0.0 - 0.2 X10*3/uL [facility] NRBC Abs Auto 0.000 0.0 - 0.012 X10*3/uL [facility] 05/19/2025 2:57 PM EST 05/19/2025 3:00 PM EST us Generic External Data Provider LAB BLOOD ORDERAB LES Final Result Performing Organization Address City/State/[place] Co de Phone Number [facility] [address] [place], [place] [phone] documented in this encounter Visit Diagnoses Not [...] documented as of this encounter Care Teams Installer Inspector Final Relationship Specialty Start Date End Date Cynthia Carson DO [address] [place] [phone] PCP - General Family Medicine 03/13/15 documented as of this encounter
--- OUTSIDE RECORDS SUMMARY | 2025-05-23 08:38 | XMS_ITS | Encounter Summary ---
Author Organization [employer] Address [address] [place] [address] Care Team Providers Care Sales Recruiting Coordinator Name Role Phone Yamileth Cynthia Primary Care Provider + [phone] Encounter Details Date Type Department Care Team (Late st Contact Info) Description 11/26/2024 Orders Only [facility] MED & PEDS [address] [place], [place] [phone] ProviderGerard MD Social History Tobacco Use Types [...] Description 09/19/2025 9:30 AM EDT Office Visit [facility] ADULT DENTAL [address] [place] [address] Maren, Pao [address] [place] [address] documented as of this encounter Procedures Procedure Name Priority Date/Time Associated Diagnosis Comments BI MAMMOGRAM SCREENING TOMOSYNTHESIS BILATERAL Routine 12/20/2024 8:20 AM EDT HM COLONOSCOPY Routine 03/26/2022 11:12 AM EDT documented in this encounter Results * BI Mammogram Screening Tomosynthesis Bilateral (12/20/2024 8:20 AM EDT) Anatomical Region Laterality Modality Breast Bilateral Mammography 12/20/2024 8:20 AM EDT Narrative 12/26/2024 11:31 AM EDT [facility] [address] [place] [address] Mammography Report Signed Patient: Ashley Pavon MR#: [id number] : 1965 Acct:[id number] Age/Sex: 59 / F ADM Date: 12/20/24 Loc: MAMMO Attending Dr: Cynthia Carson DO Ordering Physician: Cynthia Carson DO Results: 2B enign Findings Date of Service: 12/20/24 Follow Up: 1 Year From Orig ina Mammogram Procedure(s): MM tomosynthesis screening BI Accession Number(s): [id number] cc: Cynthia Carson DO EXAMINATION: MM SCREENING [...] 12/26/24 1127 DD/ 0820 TD/TT: 12/20/[address] Justice: Procedure Note Donotuseinterpreter, Image - 12/26/2024 [facility] [address] [place] [address] Mammography Report Signed Patient: Ashley PavonMR#: [id number] : 1965Acct:[id number] Age/Sex: 59 / FADM Date: 12/20/24 Loc: MAMMO Attending Dr: Cynthia Carson DO Ordering Physician: Cynthia Carsonults: 2B enign Findings Date of Service: 12/20/24Follow Up: 1 Year From Orig inal Mammogram Procedure(s): MM tomosynthesis screening BI Accession Number(s): [id number] cc: Cynthia Carson DO EXAMINATION: MM SCREENING [...] 12/26/24 1127 DD/ 0820 TD/TT: 12/20/[address] Justice: us Cynthia Carson DO IMG BI PROCEDURES [...] documented as of this encounter Care Teams Sales Recruiting Coordinator Relationship Specialty Start Date End Date Cynthia Carson DO [address] [place] [address] PCP - General Family Medicine 03/13/15 documented as of this encounter
--- OUTSIDE RECORDS SUMMARY | 2025-05-23 08:38 | XMS_ITS | Encounter Summary ---
Author Organization [employer] Address [address] [place] [address] Care Team Providers Care C D Stripper Name Role Phone Cynthia Carson DO Primary Care Provider + [phone] Reason for Visit * Reason Comments Med Refill Encounter Details Date Type Department Care Team ([facility] st Contact Info) Description 06/05/2023 Refill [facility] CHC MED & PEDS [address] [place], [place] [phone] Cynthia Carson DO [address] [facility] [place] [address] Chronic constipation Social History Tobacco Use Types [...] Description 09/19/2025 9:30 AM EDT Office Visit [facility] ADULT DENTAL [address] [place] [address] Osmin Engelaris [address] [place] [address] documented as of this encounter Visit Diagnoses Diagnosis Chronic constipation Unspecified constipation documented in this encounter Additional Health Concerns Assessment Noted Time PHQ-9 Depression Total Score: 0 09/15/19 11:12 AM EDT documented as of this encounter Care Teams C D Stripper Relationship Specialty Start Date End Date Cynthia Carson DO [address] [place] [address] PCP - General Family Medicine 03/13/15 documented as of this encounter
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
--- OUTSIDE RECORDS SUMMARY | 2025-05-23 08:38 | XMS_ITS | Encounter Summary ---
Author Organization [employer] Address [address] [facility] [address] [place] [address] Care Team Providers Care Puncher Name Role Phone Cynthia Carson DO Primary Care Provider + [phone] Reason for Visit * Reason Comments Med Refill Encounter Details Date Type Department Care Team (Late Contact Info) Description 12/16/2022 Refill [facility] [address] [place], [place] [phone] Cynthia Carson DO [address] [place] [address] Social History Tobacco Use Types Packs/Day Years [...] Description 09/19/2025 9:30 AM EDT Office Visit [facility] ADULT DENTAL [address] [place] [phone] Pao Engel [address] [place] [address] documented as of this encounter Visit Diagnoses Not on filedocumented in this encounter Additional Health Concerns Assessment Noted Time PHQ-9 Depression Total Score: 0 09/15/19 23 11:12 AM EDT documented as of this encounter Care Teams Puncher Relationship Specialty Start Date End Date Cynthia Carson DO [address] [place] [address] PCP - General Family Medicine 03/13/15 documented as of this encounter
[2025-05-23 08:42] VITALS: BMI 42.1
== END 2025-05-23 09:34 | disposition home or self-care (01) ==
LOC: HO.HOS 08:35
PROVIDERS: PCP Family Medicine; Visit Provider Physical Medicine & Rehabilitation
DX: M19.011 Primary osteoarthritis, right shoulder (principal)
CPT/HCPCS: 99213

== ENCOUNTER → 2025-05-23 08:35 | Outpatient (BNVA) | payer OTHER, SELFPAY | PROVIDERS: PCP Family Medicine; Visit Provider Physical Medicine & Rehabilitation | DX: M25.511 Pain in right shoulder (principal); M19.011 Primary osteoarthritis, right shoulder | CPT/HCPCS: 99212 ==